=== PATIENT | female | born 1970 | race African-American/Black ===

== ENCOUNTER 2022-08-31 07:54 | Inpatient (IN) | payer OTHER, MEDICAID, SELFPAY ==
[2022-08-31] VITALS (8 sets, daily range): BP systolic 142–191; BP diastolic 74–93; PULSE 76–95; RESP 13–18; TEMP 36.3–37.2; O2SAT 94–100; BMI 22.8; BMI 22.4
--- NOTE | 2022-08-31 08:15 | ED.VIS.GI ---
HPI HPI - GI History of Present Illness Chief Complaint: Abd Pain Informant: patient Narrative Narrative: Patient states over the last 10-12 hours, she has had periumbilical abdominal discomfort and nausea/vomiting, mostly stomach contents and/or yellow gastric juice. No hematemesis or coffee-ground emesis. No fevers or chills. No diarrhea, her last bowel movement was normal without blood or melena. 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 Still feels nauseated. Bowel discomfort is not as bad. No history of any abdominal surgeries. When asked when her last meal was before the symptoms started, she states I am eating all the time. No known history of gallstones. She is a diabetic, she states her A1c was elevated recently and she had only been using herbal supplementations and now she is going to start taking prescriptions. She did not check her blood sugar prior to coming to the ER, but nursing checked it prior to my evaluation and it is 172. [facility] Medical History (Updated 08/31/22 @ 11:[address] Demetrius Walsh MD) Myocardial infarct Type 2 diabetes mellitus Home Medications Atorvastatin Calcium 10 mg PO DAILY 11/15/16 [History Last Taken Unknown] cyclobenzaprine 10 mg tablet 10 mg PO TID PRN Muscle Spasm ##20 11/15/16 [Rx Last Taken Unknown] glipizide 5 mg tablet 5 mg PO BIDAC 11/15/16 [History Last Taken Unknown] metformin 1,000 mg tablet 1,000 mg PO 4X/DAY 11/15/16 [History Last Taken Unknown] multivitamin (Daily Multiple tablet) 1 ea PO DAILY 11/15/16 [History Last Taken Unknown] naproxen 500 mg tablet 500 mg PO BID PRN #20 tabs 11/15/16 [Rx Last Taken Unknown] vitamin E 100 unit capsule 100 unit PO DAILY 11/15/16 [History Last Taken Unknown] Allergy/AdvReac Type Severity Reaction Status Date / Time latex Allergy Rash Verified 08/31/22 07:55 morphine AdvReac Nausea Verified 08/31/22 07:55 Surgical History (Updated 08/31/22 @ 09:29 by Alexandria Wigal) History of coronary artery stent placement Social History Smoking Status: Never smoker ROS ROS ED Constitutional Constitutional ED: Denies chills or fever(s) Eyes Eyes: Denies change in vision or diplopia ENT ENT ED: Denies rhinorrhea or sore throat Cardiovascular Cardiovascular: Denies chest pain or palpitations Respiratory/Chest Respiratory/Chest: Denies cough or dyspnea Gastrointestinal Gastrointestinal: Reports abdominal pain, nausea and vomiting; Denies diarrhea, hematemesis, hematochezia or melena Genitourinary Genitourinary ED: Denies dysuria or hematuria Musculoskeletal Musculoskeletal: Denies back pain or neck pain Integumentary Denies abscess or rash Neurologic Neurologic: Denies headache(s), paresthesias or weakness Psychiatric Psychiatric: Denies anxiety or suicidal thoughts EXAM Physical Exam Const Vital Signs: 08/31/22 07:55 08/31/22 09:25 08/31/22 09:54 Temperature 97.6 F L Temperature Source Temporal Pulse Rate 95 87 Respiratory Rate 18 14 Blood Pressure 153/92 H 191/92 H 150/93 H Blood Pressure Mean 112 125 112 Pulse Ox 98 97 Oxygen Delivery Method Room Air Room Air 08/31/22 11:00 Temperature Temperature Source Pulse Rate 83 Respiratory Rate 16 Blood Pressure Blood Pressure Mean Pulse Ox 98 Oxygen Delivery Method Room Air Positive well nourished and well developed General Appearance ED: well developed and NAD HEENT Reports moist mucous membranes normocephalic and atraumatic Eyes PERRL and EOMs intact bilaterally Neck full ROM, No no lymphadenopathy and supple Resp normal respiratory effort and clear to auscultation bilaterally Cardio regular rate, regular rhythm and no murmurs GI non-tender and non-distended Auscultation: normoactive bowel sounds Palpation: soft Back/Spine no CVA tenderness General Back: other FROM Extremity normal to inspection General Extremety ED: Negative for edema, pulses abnormal or tenderness General Extremity: Negative for edema or pulses abnormal Neuro oriented x3, CN's II-XII intact bilaterally and no sensory deficits noted Sensorium / Orientation: awake and alert Motor Exam: strength 5/5 throughout Skin no rashes or lesions noted and no wounds MDM MDM MDM Narrative Medical decision making narrative: I perform some screening labs given the broad upper GI differential including pancreatitis, biliary colic thought to be less likely here, and cardiac etiologies since her abdomen is very benign. Her troponin returned elevated, slightly. Upon discussing this with her, she additionally adds, which she did not discuss at all when discussing her past medical history, that she had a cardiac stent placed about 13 or 14 months ago, and additionally, she ran out of her medications which includes Brilinta about a month ago and has not been able to get her new prescription recently. She denies any chest pain. She states when she had her stent, she was experiencing dyspnea without chest discomfort, she has had none of that today. She is feeling a little better with the Zofran and IV fluids, I obtained an EKG which shows nonspecific ST-T wave abnormalities but no sign of an acute injury, so I observed her and gave her aspirin and obtained a 2-hour delta troponin. It went down to 85 from 103. I discussed all this with Dr. Harris, the patient is feeling much better and there is no prior EKG to compare it to, since she had prior cardiac work-up in [place]. He recommends admission to rule out acute coronary syndrome, Lovenox, cycling enzymes, echocardiogram, and consultation going from there. Lab Data Attestation: I reviewed the patient's lab results. Labs: Laboratory Results - last 24 hr 08/31/22 08/31/22 08/31/22 08:02 08:15 08:15 WBC 5.4 RBC 4.25 Hgb 12.3 Hct 37.9 MCV 89.2 MCH 28.9 MCHC 32.5 RDW Std Deviation 37.8 RDW Coeff of Rachael 11.7 Plt Count 385 MPV 10.4 Immature Gran % (Auto) 0.200 Neut % (Auto) 80.7 H Lymph % (Auto) 16.5 L [place] % (Auto) 2.4 Eos % (Auto) 0.0 Baso % (Auto) 0.2 Absolute Neuts (auto) 4.4 Absolute Lymphs (auto) 0.89 Nucleated RBC % 0 Sodium 133 L Potassium 4.3 Chloride 98 Carbon Dioxide 25.0 Anion Gap 10 BUN 18 Creatinine 1.00 Estim Creat Clear Calc 63.01 Est GFR (MDRD) Af Amer 75 Est GFR (MDRD) Non-Af 62 BUN/Creatinine Ratio 18.0 Glucose 168 H Calcium 9.9 Total Bilirubin 0.30 AST 48 H ALT 48 Alkaline Phosphatase 84 Troponin I High Sens 103 H Total Protein 8.7 H Albumin 3.7 Globulin 5.0 H Albumin/Globulin Ratio 0.7 L Lipase 194 H POC Glucose 179 H 08/31/22 10:20 WBC RBC Hgb Hct MCV MCH MCHC RDW Std Deviation RDW Coeff of Rachael Plt Count MPV Immature Gran % (Auto) Neut % (Auto) Lymph % (Auto) [place] % (Auto) Eos % (Auto) Baso % (Auto) Absolute Neuts (auto) Absolute Lymphs (auto) Nucleated RBC % Sodium Potassium Chloride Carbon Dioxide Anion Gap BUN Creatinine Estim Creat Clear Calc Est GFR (MDRD) Af Amer Est GFR (MDRD) Non-Af BUN/Creatinine Ratio Glucose Calcium Total Bilirubin AST ALT Alkaline Phosphatase Troponin I High Sens 85 H Total Protein Albumin Globulin Albumin/Globulin Ratio Lipase POC Glucose Rhythm Strip Rhythm Strip: Sinus Rhythm Rate: 80 Ectopy: None EKG Initial EKG: Attestation: I personally reviewed and interpreted this EKG as follows: Interpretation: Sinus Rhythm, No Acute Injury Pattern and Non-Specific ST Changes Prior EKG tracings: not available for review Prior: No Prior Management Discussion w/another healthcare provider: Hospitalist and Soft Sugar Supervisor (cardiology Dr. Harris) Discharge Plan Dx/Rx/DC Orders Clinical Impression: Elevated troponin, Diffuse abdominal pain, History of CAD (coronary artery disease) Disposition Disposition: Acute Care Hospital [facility]
[2022-08-31 08:21] LABS: Bedside Glucose 179 mg/dL (74-106)
[2022-08-31] MEDS: 0.9% Normal Saline 1,000 ML 1000 ML IV (08:22)
[2022-08-31] MEDS: Ondansetron 4 MG/2 ML Vial IV (08:22)
[2022-08-31 08:31] LABS: Absolute Lymphocyte Count 0.89 X10^3/uL (0.83-4.51); Absolute Neutrophil Count 4.4 X10^3/uL (2.0-7.7); Basophil# 0.01 X10^3/uL; Basophil% 0.2 % (0-1); Hematocrit 37.9 % (37-47); Hemoglobin 12.3 g/dL (12.0-15.0); Lymphocyte # 0.89 X10^3/ul (0.83-4.51); Lymphocyte % 16.5 % (19-41); Mean Corp Hgb Conc 32.5 g/dL (32-36); Mean Corpuscular Hgb 28.9 pg (27.0-32.0); Mean Corpuscular Volume 89.2 fL (81-99); Mean Platelet Vol. 10.4 fl (6.2-12.0); Monocyte# 0.13 X10^3/uL; Monocyte% 2.4 % (0-10); NRBC Flagged by Analyzer 0 % (0-5); Neutrophil # 4.36 X10^3/uL (2.7-7.7); Neutrophil % 80.7 % (47-70); Platelet Count 385 K/mm3 (150-450); RBC Distribution Width CV 11.7 % (11.6-14.6); RBC Distribution Width SD 37.8 fl (35.1-43.9); Red Blood Count 4.25 M/mm3 (4.2-5.4); White Blood Count 5.4 K/mm3 (4.4-11.0)
[2022-08-31 08:49] LABS: ALB/GLOB Ratio 0.7 RATIO (0.9-2.4); AST(SGOT) 48 U/L (15-37); Alanine Aminotransfer ALT/SGPT 48 U/L (13-56); Albumin, Serum 3.7 g/dL (3.2-5.0); Alkaline Phosphatase 84 U/L (45-117); Anion Gap 10 (5-15); BUN 18 mg/dL (7-18); Calcium,Total 9.9 mg/dL (8.5-10.1); Chloride 98 mmol/L (98-107); EST Glomerular Filtration Rate 62 mL/min (>60); Est Glom Filt Rate - Afr Amer 75 mL/min (>60); Estimated Creatinine Clearance 63.01 ml/min; Glucose 168 mg/dL (74-106); Lipase 194 U/L (13-75); Potassium 4.3 mmol/L (3.5-5.1); Protein, Total 8.7 g/dL (6.4-8.2); Sodium Level 133 mmol/L (136-145); Troponin-I HS 103 pg/mL (3.0-54.0)
--- NOTE | 2022-08-31 09:01 | EKG12_ITS ---
Test Reason : ELEVATED TROPONIN Blood Pressure : / mmHG Vent. Rate : 079 BPM Atrial Rate : 079 BPM P-R Int : 166 ms QRS Dur : 072 ms QT Int : 396 ms P-R-T Axes : 042 -05 019 degrees QTc Int : 454 ms Normal sinus rhythm Nonspecific T wave abnormality Abnormal ECG Confirmed by ELYSE YU, JOSE ([id number]), desk editor ABIOLA ANGLIN ([id number]) on 09/02/2022 9:33:22 AM Referred By: DARLENE Confirmed By:JOSE PAPPAS MD
[2022-08-31] MEDS: Aspirin 81 MG TAB.CHEW 324 MG PO (09:55)
[2022-08-31 10:48] LABS: Troponin-I HS 85 pg/mL (3.0-54.0)
[2022-08-31] MEDS: Enoxaparin 80 MG/0.8 ML Syringe 65 MG SC (11:38)
--- NOTE | 2022-08-31 12:32 | EKG12_ITS ---
Test Reason : Blood Pressure : / mmHG Vent. Rate : 093 BPM Atrial Rate : 093 BPM P-R Int : 156 ms QRS Dur : 072 ms QT Int : 356 ms P-R-T Axes : 045 -13 019 degrees QTc Int : 442 ms Normal sinus rhythm Minimal voltage criteria for LVH, may be normal variant ( R in aVL ) Borderline ECG No previous ECGs available Confirmed by ELYSE YU, JOSE ([id number]), development editor ABIOLA ANGLIN ([id number]) on 09/01/2022 1:57:56 PM Referred By: MICHELLE Confirmed By:JOSE PAPPAS MD
--- NOTE | 2022-08-31 13:45 | PCM.HP.STD ---
HPI - General General Date of Admission: 08/31/22 Date of Service: 08/31/22 Chief Complaint: nausea and vomiting. HPI Narrative JYOTI GUZMAN, is a 52 F who presents presents with nausea and vomiting. Symptoms began in the beginning of her work shift was at 2200 on the . Symptoms persisted and so she presented to the emergency room. In the emergency room, patient EKG was normal, but her troponins went from 10 3-85. Given the elevated troponins and patient does have a history of coronary artery disease with prior stent placed in June 2021, cardiology recommended admission, anticoagulation and echocardiogram. Patient stated that back in June 2021, patient was having shortness of breath and was found to have cardiac issue and required a stent at that time. Patient was released to go back to work back in September of last year and has been doing the same job since then. She did state that about 3 weeks ago, her prescription lapsed for her ticagrelor as well as metoprolol and she was unable to get it refilled despite reaching out to the provider. [facility] Medical History Myocardial infarct Type 2 diabetes mellitus Home Medications Atorvastatin Calcium 10 mg PO DAILY 11/15/16 [History Last Taken Unknown] cyclobenzaprine 10 mg tablet 10 mg PO TID PRN Muscle Spasm ##20 11/15/16 [Rx Last Taken Unknown] glipizide 5 mg tablet 5 mg PO BIDAC 11/15/16 [History Last Taken Unknown] metformin 1,000 mg tablet 1,000 mg PO 4X/DAY 11/15/16 [History Last Taken Unknown] multivitamin (Daily Multiple tablet) 1 ea PO DAILY 11/15/16 [History Last Taken Unknown] naproxen 500 mg tablet 500 mg PO BID PRN #20 tabs 11/15/16 [Rx Last Taken Unknown] vitamin E 100 unit capsule 100 unit PO DAILY 11/15/16 [History Last Taken Unknown] metoprolol succinate 50 mg tablet,extended release 24 hr 50 mg PO BID 08/31/22 [History Last Taken 08/30/22] ticagrelor 90 mg tablet (Brilinta) 90 mg PO BID 08/31/22 [History Last Taken Unknown] Allergy/AdvReac Type Severity Reaction Status Date / Time latex Allergy Rash Verified 08/31/22 07:55 morphine AdvReac Nausea Verified 08/31/22 07:55 Family History no significant family his Surgical History History of coronary artery stent placement Social History (Updated 08/31/22 @ 13:[address] Madan Jolley DO) Smoking Status: Never smoker alcohol intake: never substance use type: does not use ROS ROS Narrative No abdominal pain. No diaphoresis. No shortness of breath. All review of systems were negative except as mentioned above in the history of present illness and the other review of systems. Vital Signs Vital Signs Vital Signs: 08/31/22 07:55 08/31/22 09:25 08/31/22 09:54 Temperature 36.4 C L Temperature Source Temporal Pulse Rate 95 87 Respiratory Rate 18 14 Blood Pressure 153/92 H 191/92 H 150/93 H Blood Pressure Mean 112 125 112 Blood Pressure Source Blood Pressure Position Blood Pressure Location Pulse Ox 98 97 Oxygen Delivery Method Room Air Room Air 08/31/22 11:00 08/31/22 12:11 08/31/22 13:01 Temperature 37.1 C 36.9 C Temperature Source Temporal Oral Pulse Rate 83 80 93 Respiratory Rate 16 13 16 Blood Pressure 146/88 H 158/86 H Blood Pressure Mean 107 110 Blood Pressure Source Monitor Blood Pressure Position Semi-Fowlers Blood Pressure Location Right Arm Pulse Ox 98 100 94 Oxygen Delivery Method Room Air Room Air Room Air Weight Weight: 63 kg Body Mass Index (BMI) 22.4 Physical Exam Narrative - Physical Exam General: Alert, Oriented x3, Cooperative HEENT: Atraumatic, PERRLA, EOMI, Normocephalic Oral: Moist Mucosa, No Gingival or Mucosal Lesions/ Ulcerations Neck: Supple, No JVD, Negative Carotid Bruits Lungs: Clear to auscultation, Normal air movement Cardiovascular: Regular rate, Normal S1, Normal S2, No murmurs Abdomen: Bowel Sounds Present, Soft, Non Tender, Non-Distended, No Hepato-splenomegaly Extremities: No clubbing, No cyanosis, No edema, Capillary Refill Less than 3 Seconds Skin: No rashes, No breakdown Musculoskeletal: No Tenderness to Palpation of Joints or Extremities Neurological: Neuro grossly intact Psych/Mental Status: Normal Affect, Appropriate Results Lab / Micro Data Attestation: I reviewed the patient's lab results. Result Diagrams: 08/31/22 08:15 08/31/22 08:15 Labs: Laboratory Results - last 24 hr 08/31/22 08:02: POC Glucose 179 H 08/31/22 08:15: WBC 5.4, RBC 4.25, Hgb 12.3, Hct 37.9, MCV 89.2, MCH 28.9, MCHC 32.5, RDW Std Deviation 37.8, RDW Coeff of Rachael 11.7, Plt Count 385, MPV 10.4, Immature Gran % (Auto) 0.200, Neut % (Auto) 80.7 H, Lymph % (Auto) 16.5 L, [place] % (Auto) 2.4, Eos % (Auto) 0.0, Baso % (Auto) 0.2, Absolute Neuts (auto) 4.4, Absolute Lymphs (auto) 0.89, Nucleated RBC % 0 08/31/22 08:15: Sodium 133 L, Potassium 4.3, Chloride 98, Carbon Dioxide 25.0, Anion Gap 10, BUN 18, Creatinine 1.00, Estim Creat Clear Calc 63.01, Est GFR (MDRD) Af Amer 75, Est GFR (MDRD) Non-Af 62, BUN/Creatinine Ratio 18.0, Glucose 168 H, Calcium 9.9, Total Bilirubin 0.30, AST 48 H, ALT 48, Alkaline Phosphatase 84, Troponin I High Sens 103 H, Total Protein 8.7 H, Albumin 3.7, Globulin 5.0 H, Albumin/Globulin Ratio 0.7 L, Lipase 194 H 08/31/22 10:20: Troponin I High Sens 85 H Rhythm Strip Rhythm Strip: Sinus Rhythm Rate: 80 Ectopy: None EKG Initial EKG: Attestation: I personally reviewed and interpreted this EKG as follows: Prior EKG tracings: available for review EKG Rhythm Intrepretation: Sinus Rhythm Assessment & Plan Assessment/Plan (1) Non-STEMI (non-ST elevated myocardial infarction): PLAN: Unclear significance but troponins are trending downwards. Patient be anticoagulated with enoxaparin, check 2D echocardiogram and consult cardiology. Resume ticagrelor and metoprolol (2) Nausea and vomiting: PLAN: Unclear if this was cardiac in nature or related with a gastrointestinal issue. As needed antiemetics Check an abdominal x-ray PLAN: Plan Coronary artery disease: Continue with antiplatelet therapy, statin Diabetes mellitus type 2: Sliding scale insulin. Patient states that she has been taking an herbal supplement recently for diabetes. Check an A1c. VTE prophylaxis: Not indicated as patient will be anticoagulated and currently under observation status. Charges/Coding Visit Charges Inpatient E&M: 32965 Init Hosp L2
--- NOTE | 2022-08-31 14:48 | ECHOD_ITS ---
Reason For Study: CHEST PAIN Procedure This was a 2D Doppler, Color Flow transthoracic echocardiogram. Exam performed portable in patient room. Left Ventricle Normal left ventricle. The estimated ejection fraction is 55-60 %. Right Ventricle Normal right ventricle. Normal systolic function. Atria Normal left atrium. Normal right atrium. Mitral Valve The mitral valve is structurally normal. No prolapse or stenosis seen. Trivial mitral valve insufficiency. Tricuspid Valve Normal tricuspid valve. Aortic Valve Moderate focal aortic valve calcification. Trivial aortic valve insufficiency. Pulmonic Valve The pulmonic valve is not well visualized. Great Vessels Normal aortic root. Pericardium/Pleural No pericardial effusion. MMode/2D Measurements & Calculations LVIDd: 3.4 cm IVSd: 1.3 cm Ao root diam: 2.8 cm LVIDs: 2.2 cm LVPWd: 1.5 cm FS: 35.7 % LAV(MOD-bp): 32.0 ml LVAd ap4: 26.7 cm2 SV(MOD-sp4): 60.8 ml LAV(MOD-bp) Indexed: 18.7 ml/m2 LVLd ap4: 7.3 cm LAV(MOD-sp2): 29.1 ml EDV(MOD-sp4): 79.0 ml LAV(MOD-sp4): 35.1 ml EDV(sp4-el): 82.8 ml LVAs ap4: 10.5 cm2 LVLs ap4: 5.5 cm ESV(MOD-sp4): 18.2 ml ESV(sp4-el): 17.1 ml EF(MOD-sp4): 76.9 % EF(sp4-el): 79.4 % SV(sp4-el): 65.7 ml LA A4 area: 14.1 cm2 LA dimension(2D): 3.4 cm RA A4 area: 10.0 cm2 Time Measurements MV dec time: 0.15 sec Doppler Measurements & Calculations MV E max norm: 69.4 cm/sec Lat Peak E' Norm: 9.4 cm/sec Med Peak E' Norm: 7.6 cm/sec MV A max norm: 110.2 cm/sec E/E' lat: 7.4 E/E' med: 9.2 MV E/A: 0.63 MV V2 max: 134.1 cm/sec Ao V2 max: 175.7 cm/sec MV max P.2 mmHg MV dec slope: 478.3 cm/sec2 Ao max P.3 mmHg MV V2 mean: 103.8 cm/sec Ao V2 mean: 121.0 cm/sec MV mean P.6 mmHg Ao mean P.9 mmHg MV V2 VTI: 32.9 cm Ao V2 VTI: 31.8 cm AV (velocity ratio): 0.89 LV V1 max: 159.3 cm/sec PA V2 max: 145.6 cm/sec LV V1 max P.2 mmHg PA V2 mean: 101.8 cm/sec LV V1 mean P.8 mmHg LV V1 mean: 109.3 cm/sec LV V1 VTI: 28.3 cm ECHO/Echo Complete Interpretation Summary The estimated ejection fraction is 55-60 %. Overall normal LV systolic function Moderate size focal aortic valve calcification/echogenic Cannot rule out aortic valve vegetation Trivial aortic valve regurgitation To correlate with the clinical presentation And consider transesophageal echocardiogram if clinically warranted. No prior echocardiogram to compare Ordering Physician: Jack Harris Referring Physician: GOPI CRABTREE Performed By: Brandy Daniels RCS
[2022-08-31 15:54] LABS: Troponin-I HS 85 pg/mL (3.0-54.0)
--- NOTE | 2022-08-31 15:56 | CON.PCM.CA_ITS ---
Assessment & Plan Assessment/Plan (1) Elevated troponin: (2) Diffuse abdominal pain: (3) Non-STEMI (non-ST elevated myocardial infarction): (4) Nausea and vomiting: PLAN: Plan 52-year-old female Presented to the ER here at the [facility] Complaining of symptoms of nausea and vomiting Evidently the symptoms started while she was at work yesterday and persisted so she presented to ER Also patient has been off antiplatelet with Brilinta ticagrelor, for the last 3 weeks Patient had history of CAD with PCI and stent in June 2021 Also she had a history of diabetes mellitus, hyperlipidemia Her current medication include atorvastatin, glipizide, metformin, naproxen, metoprolol and she been off ticagrelor Card examination essentially normal Cardiac care plan recommendations; On review of the record patient has elevated cardiac biomarker with high sensitive troponins which was 103 trending to 85 And the EKG showed normal sinus rhythm Review of the echocardiogram part of the systolic function is preserved We will continue medical treatment for CAD/non-STEMI Patient scheduled for cardiac catheterization tomorrow by Dr. Thornton.. HPI Consult Data Date of Consult: 08/31/22 HPI Narrative Reason for Consultation: CAD/non-STEMI/prior PCI stent HPI Narrative: JYOTI GUZMAN, is a 52 F who presents [facility] Medical History Myocardial infarct Type 2 diabetes mellitus Home Medications Atorvastatin Calcium 10 mg PO DAILY 11/15/16 [History Last Taken Unknown] cyclobenzaprine 10 mg tablet 10 mg PO TID PRN Muscle Spasm ##20 11/15/16 [Rx Last Taken Unknown] glipizide 5 mg tablet 5 mg PO BIDAC 11/15/16 [History Last Taken Unknown] metformin 1,000 mg tablet 1,000 mg PO 4X/DAY 11/15/16 [History Last Taken Unknown] multivitamin (Daily Multiple tablet) 1 ea PO DAILY 11/15/16 [History Last Taken Unknown] naproxen 500 mg tablet 500 mg PO BID PRN #20 tabs 11/15/16 [Rx Last Taken Unknown] vitamin E 100 unit capsule 100 unit PO DAILY 11/15/16 [History Last Taken Unknown] metoprolol succinate 50 mg tablet,extended release 24 hr 50 mg PO BID 08/31/22 [History Last Taken 08/30/22] ticagrelor 90 mg tablet (Brilinta) 90 mg PO BID 08/31/22 [History Last Taken Unknown] Allergy/AdvReac Type Severity Reaction Status Date / Time latex Allergy Rash Verified 08/31/22 07:55 morphine AdvReac Nausea Verified 08/31/22 07:55 Family History no significant family his Surgical History History of coronary artery stent placement Social History (Updated 08/31/22 @ 13:[address] Madan Jolley DO) Smoking Status: Never smoker alcohol intake: never substance use type: does not use ROS ROS Narrative 14 point review of system is unremarkable apart from current presentation. Patient presented with symptoms of nausea vomiting Patient was off the antiplatelet with Brilinta for 3 weeks Physical Exam Narrative Orientated Not in acute distress Cardiovascular exam S1-S2 regular Chest exam clear to auscultation bilateral Examination lower extremity no lower extremity edema. Pedal pulses palpable Risk Stratification Risk Stratification Applicable: Yes Age >/= 65: No >/= 3 CAD Risk Factors (HTN, HLD, DM, family hx of CAD, or current smoker): Yes Aspirin Use in the Past 7 Days: Yes Severe Angina (>/= episodes in 24 hours): No EKG ST Changes >/= 0.5mm: No Positive Cardiac Marker: Yes JOCELYN Risk Stratification Score: 3 JOCELYN % Risk: 13% Risk Objective Data Vital Signs: Vital Signs Temp Pulse Resp BP Pulse Ox O2 Del Method 98.4 F 93 16 158/86 H 94 Room Air 08/31/22 13:01 08/31/22 13:01 08/31/22 13:01 08/31/22 13:01 08/31/22 13:01 08/31/22 15:36 Oxygen Delivery Method Room Air Weight: 138 lb 14.259 oz Body Mass Index (BMI) 22.4 Intake & Output: Intake and Output for Last 24 Hours 08/29/22 08/30/22 08/31/22 23:59 23:59 23:59 Intake Total 1000 / 1000 Balance 1000 / 1000 Lab / Micro Data Result Diagrams: 08/31/22 08:15 08/31/22 08:15 Labs: Laboratory Results - last 24 hr 08/31/22 08:02: POC Glucose 179 H 08/31/22 08:15: WBC 5.4, RBC 4.25, Hgb 12.3, Hct 37.9, MCV 89.2, MCH 28.9, MCHC 32.5, RDW Std Deviation 37.8, RDW Coeff of Rachael 11.7, Plt Count 385, MPV 10.4, Immature Gran % (Auto) 0.200, Neut % (Auto) 80.7 H, Lymph % (Auto) 16.5 L, [place] % (Auto) 2.4, Eos % (Auto) 0.0, Baso % (Auto) 0.2, Absolute Neuts (auto) 4.4, Absolute Lymphs (auto) 0.89, Nucleated RBC % 0 08/31/22 08:15: Sodium 133 L, Potassium 4.3, Chloride 98, Carbon Dioxide 25.0, Anion Gap 10, BUN 18, Creatinine 1.00, Estim Creat Clear Calc 63.01, Est GFR (MDRD) Af Amer 75, Est GFR (MDRD) Non-Af 62, BUN/Creatinine Ratio 18.0, Glucose 168 H, Calcium 9.9, Total Bilirubin 0.30, AST 48 H, ALT 48, Alkaline Phosphatase 84, Troponin I High Sens 103 H, Total Protein 8.7 H, Albumin 3.7, Globulin 5.0 H , Albumin/Globulin Ratio 0.7 L, Lipase 194 H 08/31/22 10:20: Troponin I High Sens 85 H 08/31/22 14:20: Troponin I High Sens 85 H Rhythm Strip Rhythm Strip: Sinus Rhythm Rate: 80 Ectopy: None Cardiology Labs/Tests 08/31/22 08:15: WBC 5.4, RBC 4.25, Hgb 12.3, Hct 37.9, MCV 89.2, MCH 28.9, MCHC 32.5, Plt Count 385, MPV 10.4, Immature Gran % (Auto) 0.200, Neut % (Auto) 80.7 H, Lymph % (Auto) 16.5 L, [place] % (Auto) 2.4, Eos % (Auto) 0.0, Baso % (Auto) 0.2, Absolute Neuts (auto) 4.4, Nucleated RBC % 0 08/31/22 08:15: Sodium 133 L, Potassium 4.3, Chloride 98, Carbon Dioxide 25.0, Anion Gap 10, BUN 18, Creatinine 1.00, Est GFR (MDRD) Af Amer 75, Est GFR (MDRD) Non-Af 62, BUN/Creatinine Ratio 18.0, Glucose 168 H, Calcium 9.9, Total Bilirubin 0.30 Rhythm: EKG: ECHO: Stress Test: Cardiac Cath: PCI: CT Surgery: Holter monitor: EPS: PPM: CXR: Chest CT Scan:
[2022-08-31] MEDS: Insulin Lispro 100 UNIT/ML INSULN.PEN SC (16:50)
[2022-08-31 17:05] LABS: Bedside Glucose 388 mg/dL (74-106)
[2022-08-31] MEDS: TICAGRELOR 90 MG TABLET PO (22:46)
[2022-08-31] MEDS: Enoxaparin 80 MG/0.8 ML Syringe 70 MG SC (22:46)
[2022-08-31] MEDS: Atorvastatin Calcium 10 MG Tablet PO (22:46)
[2022-09-01] VITALS (14 sets, daily range): BP systolic 133–155; BP diastolic 70–101; PULSE 77–110; RESP 16–18; TEMP 36.6–36.9; O2SAT 93–100
--- NOTE | 2022-09-01 04:10 | EKG12_ITS ---
Test Reason : AM EKG Blood Pressure : / mmHG Vent. Rate : 083 BPM Atrial Rate : 083 BPM P-R Int : 158 ms QRS Dur : 074 ms QT Int : 366 ms P-R-T Axes : 049 -02 046 degrees QTc Int : 430 ms Normal sinus rhythm Normal ECG When compared with ECG of 31-AUG-2022 13:25, MANUAL COMPARISON REQUIRED, DATA IS UNCONFIRMED Confirmed by ELYSE YU, JOSE ([id number]), newspaper editor ABIOLA ANGLIN ([id number]) on 09/01/2022 1:57:24 PM Referred By: Confirmed By:JOSE PAPPAS MD
[2022-09-01] MEDS: Aspirin E.C. 81 MG Tablet PO (06:02)
[2022-09-01] MEDS: TICAGRELOR 90 MG TABLET PO ×2 (06:02→22:36)
[2022-09-01 06:13] LABS: Absolute Neutrophil Count 1.6 X10^3/uL (2.0-7.7); Basophil# 0.01 X10^3/uL; Basophil% 0.3 % (0-1); Eosinophil# 0.04 X10^3/uL; Eosinophils% 1.3 % (0-5); Hematocrit 34.6 % (37-47); Hemoglobin 11.3 g/dL (12.0-15.0); Lymphocyte % 36.2 % (19-41); Mean Corp Hgb Conc 32.7 g/dL (32-36); Mean Corpuscular Hgb 28.7 pg (27.0-32.0); Mean Corpuscular Volume 87.8 fL (81-99); Mean Platelet Vol. 10.5 fl (6.2-12.0); Monocyte# 0.32 X10^3/uL; Monocyte% 10.5 % (0-10); NRBC Flagged by Analyzer 0 % (0-5); Neutrophil # 1.56 X10^3/uL (2.7-7.7); Neutrophil % 51.4 % (47-70); Platelet Count 348 K/mm3 (150-450); RBC Distribution Width CV 11.3 % (11.6-14.6); RBC Distribution Width SD 36.6 fl (35.1-43.9); Red Blood Count 3.94 M/mm3 (4.2-5.4)
[2022-09-01 06:44] LABS: Anion Gap 7 (5-15); BUN 28 mg/dL (7-18); BUN/Creat Ratio 24.1 RATIO (10-20); Calcium,Total 9.1 mg/dL (8.5-10.1); Chloride 98 mmol/L (98-107); Creatinine, Serum 1.16 mg/dL (0.55-1.02); EST Glomerular Filtration Rate 53 mL/min (>60); Est Glom Filt Rate - Afr Amer 64 mL/min (>60); Estimated Creatinine Clearance 54.32 ml/min; Glucose 388 mg/dL (74-106); Potassium 4.1 mmol/L (3.5-5.1); Sodium Level 132 mmol/L (136-145)
--- NOTE | 2022-09-01 08:38 | PCM.PN.HOSP ---
Reason for Visit Reason for Visit: Diagnoses Non-ST elevation (NSTEMI) myocardial infarction (08/31/22) Generalized abdominal pain (08/31/22) Nausea with vomiting, unspecified (08/31/22) Other specified abnormalities of plasma proteins (08/31/22) Subjective Subjective No chest pain. Patient feeling numbness in her hands which she gets when her blood sugar gets high. States that she is not taking her previous oral medications for diabetes she was taking some herbal medication because it made her feel better. Objective Data Objective Data Vital Signs: Vital Signs Temp Pulse Resp BP Pulse Ox O2 Del Method 36.6 C 88 18 133/87 H 93 Room Air 09/01/22 03:47 09/01/22 03:47 09/01/22 03:47 09/01/22 03:47 09/01/22 07:08 09/01/22 07:08 Oxygen Delivery Method Room Air Weight: 63 kg Body Mass Index (BMI) 22.4 Intake & Output: Intake and Output for Last 24 Hours 08/30/22 08/31/22 09/01/22 23:59 23:59 23:59 Intake Total 1500 / 1500 Balance 1500 / 1500 Lab / Micro Data Result Diagrams: 09/01/22 05:20 09/01/22 05:20 Labs: Laboratory Results - last 24 hr 08/31/22 08:15: Sodium 133 L, Potassium 4.3, Chloride 98, Carbon Dioxide 25.0, Anion Gap 10, BUN 18, Creatinine 1.00, Estim Creat Clear Calc 63.01, Est GFR (MDRD) Af Amer 75, Est GFR (MDRD) Non-Af 62, BUN/Creatinine Ratio 18.0, Glucose 168 H, Calcium 9.9, Total Bilirubin 0.30, AST 48 H, ALT 48, Alkaline Phosphatase 84, Troponin I High Sens 103 H, Total Protein 8.7 H, Albumin 3.7, Globulin 5.0 H, Albumin/Globulin Ratio 0.7 L, Lipase 194 H 08/31/22 10:20: Troponin I High Sens 85 H 08/31/22 14:20: Troponin I High Sens 85 H 08/31/22 16:45: POC Glucose 388 H 09/01/22 05:20: WBC 3.0 L, RBC 3.94 L, Hgb 11.3 L, Hct 34.6 L, MCV 87.8, MCH 28.7, MCHC 32.7, RDW Std Deviation 36.6, RDW Coeff of Rachael 11.3 L, Plt Count 348, MPV 10.5, Immature Gran % (Auto) 0.300, Neut % (Auto) 51.4, Lymph % (Auto) 36.2, [place] % (Auto) 10.5 H, Eos % (Auto) 1.3, Baso % (Auto) 0.3, Absolute Neuts (auto) 1.6 L, Absolute Lymphs (auto) 1.10, Nucleated RBC % 0 09/01/22 05:20: Sodium 132 L, Potassium 4.1, Chloride 98, Carbon Dioxide 27.0, Anion Gap 7, BUN 28 H, Creatinine 1.16 H, Estim Creat Clear Calc 54.32, Est GFR (MDRD) Af Amer 64, Est GFR (MDRD) Non-Af 53 L, BUN/Creatinine Ratio 24.1 H, Glucose 388 H, Calcium 9.1 Radiography Diagnostic Testing: Radiology Impression Echocardiogram 08/31/22 14:48 Interpretation Summary The estimated ejection fraction is 55-60 %. Overall normal LV systolic function Moderate size focal aortic valve calcification/echogenic Cannot rule out aortic valve vegetation Trivial aortic valve regurgitation To correlate with the clinical presentation And consider transesophageal echocardiogram if clinically warranted. No prior echocardiogram to compare Ordering Physician: Jack Harris Referring Physician: GOPI CRABTREE Performed By: Brandy Daniels RCS Rhythm Strip Rhythm Strip: Sinus Rhythm Rate: 80 Ectopy: None Physical Exam Const alert and no apparent distress Resp normal respiratory effort, no retractions, no use of accessory muscles and clear to auscultation bilaterally Cardio regular rate, regular rhythm, S1 normal heart sound and S2 normal heart sound GI normal to inspection, nondistended, normoactive bowel sounds, soft to palpation, non-tender and non-distended Extremity normal to inspection Psych affect normal Assessment & Plan Assessment/Plan (1) Non-STEMI (non-ST elevated myocardial infarction): PLAN: Unclear significance but troponins are trending downwards. Patient be anticoagulated with enoxaparin, check 2D echocardiogram and consult cardiology. Continue aspirin, ticagrelor, atorvastatin and metoprolol [facility] 09/01 patient had a drug-eluting stent placed to the LAD. (2) Nausea and vomiting: PLAN: Unclear if this was cardiac in nature or related with a gastrointestinal issue. As needed antiemetics Add pantoprazole (3) Type 2 diabetes mellitus: PLAN: Patient not been on medications for some time prior to presentation. Stated that she stopped taking her metformin as well as glipizide because it did not make her feel well. She was taking an herbal supplement because that actually did make her feel well. She does not know what that herbal supplement was. Explained to her that I would suspect that the herbal supplement is likely benign but very likely not to be helpful in regards to her diabetes. Explained to her that it is best that she be put on medications to get her blood sugar under better control because of the long-term complications with diabetes. I also mention with her abdominal issues that is unclear if she has anything like diabetic gastroparesis. Check hemoglobin A1c At home she is taking metformin 1000 mg 4 times a day but had been sometime prior to this admission when she was taking. Patient may need more basal insulin rather than oral agents. We will hold off on additional oral agents at this time till we get her A1c. PLAN: Plan Coronary artery disease: Continue with antiplatelet therapy, statin VTE prophylaxis: Not indicated as patient will be anticoagulated and currently under observation status. Greater than 50 minutes of which greater than 50 percent of time was counseling patient bedside about diabetes, medications for diabetes, the need to get better control of the diabetes but also acknowledging her concerns because of the issues that she was having regards to some potential side effects with the metformin and glipizide. Charges/Coding Visit Charges Inpatient E&M: 36167 [facility] L3
[2022-09-01 08:55] LABS: Bedside Glucose 359 mg/dL (74-106)
[2022-09-01] MEDS: Insulin Lispro 100 UNIT/ML INSULN.PEN SC ×2 (09:59→16:47)
[2022-09-01] MEDS: Vitamin E 400 UNITS Capsule PO (10:06)
[2022-09-01] MEDS: Multivitamins,Therapeutic Tablet 1 TABLET PO (10:06)
[2022-09-01] MEDS: Pantoprazole Sodium 40 MG Tablet PO (10:06)
[2022-09-01 10:11] LABS: Bedside Glucose 241 mg/dL (74-106)
[2022-09-01 11:54] LABS: Internal QC Validated? YES +Cl - CLEAR BKGD; Pregnancy, Urine Negative Negative
--- NOTE | 2022-09-01 12:25 | CL.D_ITS ---
Patient Name: JYOTI GUZMAN Study Date: 09/01/2022 Performing: Jairo Thornton MD Ht: 66 inches 167.64 cm : 1970 Wt: 138.89 lbs 63 kg Age: 52 Gender: female BSA: 1.71 PROCEDURE(S) PERFORMED [id number])[facility] CLINICAL PROFILE AND INDICATIONS Indications: Worsening Angina Heart Failure: None Stress/Imaging Stress/Image Study Performed: No CAD Presentations: Unstable angina. CONCLUSIONS Single-vessel CAD with high-grade stenosis prior to the LAD stent. RECOMMENDATIONS Referred for immediate PCI DESCRIPTION OF PROCEDURE The patient arrived to the procedure lab. The risks and benefits of the procedure as well as a full description of our services here and current unavailability of surgical backup were fully explained to the patient and/or their significant other prior to the catheterization. The Timeout was completed, verifying the correct patient and procedure. The patient's procedural site was prepped and draped in the usual fashion. Local anesthetic was given subcutaneously to right radial region with Lidocaine 2%. Using a modified Seldinger technique, arterial access was obtained via the right radial artery, a 6Fr sheath was inserted. Left Coronary Artery selective angiography was performed in multiple views using a 5 Fr. 4.0 Leicester catheter. Right Coronary Artery selective angiography was then performed in multiple views using a 5 Fr. 4.0 Leicester catheter. CORONARY ANGIOGRAPHY DOMINANCE: Right Dominant LEFT HEART ASSESSMENT Left Ventricular Ejection Fraction: by Echo 65 % Normal LV wall motion Normal Left Ventricular systolic function LEFT MAIN: Angiographically normal LEFT ANTERIOR DESCENDING ARTERY: Patient previously underwent PCI of the mid LAD with a 90% stenosis prior to the stents. CIRCUMFLEX ARTERY: Angiographically normal RIGHT CORONARY ARTERY: Dominant vessel with no significant disease except for the inferior branch of the posterolateral vessel which is small with a 70% stenosis. COMPLICATIONS PROCEDURE MEDICATIONS Versed 1 mg IV Fentanyl 50 mcg IV Oxygen: 2 L/min via nasal cannula Brilinta 90 mg PO @ 09/01/2022 12:21:34 Heparin given IA 09/01/2022 12:00:29 Heparin 6000 unit(s) IV 09/01/2022 12:22:46 Verapamil 2.5mg, Ntg 100mcgs, 3000 units of Heparin given IA 09/01/2022 12:00:29 SUMMARY OF HEMODYNAMIC DATA Time AIR REST ECG 11:40:02 Art 216/91 (131) 11:56:31 Art 164/84 (103) 12:02:20 AO 162/42 (36) SA 12:13:47 AO 128/84 (105) 12:13:56 Signed By Jairo Thornton MD On 09/01/2022 12:24:26 Jairo Thornton MD
--- NOTE | 2022-09-01 13:04 | PCIREPORT_ITS ---
PCI Cardiac Cath Report PCI Report: 1 successful PCI of LAD/90% stenosis proximal to mid LAD stent. With predilatation using 2.5 x 15 mm balloon, followed by placement of drug- eluting stent 2.75 x 18 mm resolute Allyn, postdilated with 3 x 15 mm NC balloon And achieved a 0% postprocedure. Maintenance of JOCELYN-3 flow pre and postprocedure. #2 placement of TR band to close the right radial artery arteriotomy site. Consent; Risk and benefits of procedure explained detail to the patient she elected to proceed informed consent obtained Angiographic findings showed to the patient in the Domestic [facility] and the lesion proximal LAD was identified by angiography and discussed with the patient. Also I reinforced the importance of taking Brilinta and aspirin due to the risk of acute in-stent thrombosis. Preprocedure diagnosis; This patient with a history of CAD She had a PCI and stent done at the [facility] in July 06 She was off Brilinta for nearly 3 weeks. And also she was not on aspirin she presented with nausea vomiting to the ER here at the [facility]. The troponin level initially is 103 and subsequently the trended down to 85 She was started on medical therapy with dual antiplatelet Brilinta aspirin in addition to the rest of her medication. When she was brought into the [facility] where she underwent cardiac catheterization today by Dr. Thornton. The finding of cardiac catheterization revealed patency of the mid LAD stented with the proximal stenosis from 90% RCA large dominant normal angiographically Left main is normal And circumflex artery angiographically normal. LV systolic function is preserved ejection fraction of 65%. Interventional equipment used 1. 6 Belgian EBU guide catheter 0.014 180 cm run-through extra floppy straight guidewire 2.5 x 15 mm emerge MR balloon 2.75 x 18 mm resolute Geovanny Rx drug-eluting stent 3.0 x 15 mm NC emerge MR balloon Medication used in the Domestic House[facility]; Patient was given heparin through the sheath as well as a 6000 units of heparin ACT level acceptable to 99 In addition to that the patient was given 1 dose of Brilinta as she was given only a single dose in the floor. In addition to aspirin Procedure in detail; Under fluoroscopic guidance through the right radial artery approach we will proceed with a 6 Belgian EBU guide catheter cannulated the left main without difficulty Following this we will proceed with a guide wire across the lesion at the LAD through the stent And then predilated proximal to the stent followed by placement of drug-eluting stent and postdilatation With reduction of stenosis and maintenance of JOCELYN-3 flow Following this all angiographic view reviewed All catheter removed And hemostasis maintained with manual pressure with no complication in the Domestic [facility] Conclusion recommendation 1. Patient will be scheduled for phase 1 cardiac rehab at the [facility] 2. Patient to follow-up with Dr. Thornton for continuation of cardiac care and clinical follow-up 3. I reinforced to the patient the importance of taking the Brilinta and a low-dose aspirin for 1 year We will continue the rest of the cardiac medication. No complication in the Domestic [facility] Jack Harris MD,FACC,[facility]
[2022-09-01] MEDS: Acetaminophen 325 MG Tablet 650 MG PO (14:31)
[2022-09-01 14:58] LABS: ACT Activated Clotting Time 299 sec (74-137)
[2022-09-01 17:25] LABS: Bedside Glucose 215 mg/dL (74-106)
[2022-09-01 19:13] LABS: Hemoglobin A1c > 14.0 % (3.8-5.6)
--- NOTE | 2022-09-01 20:37 | NURSING ---
1951 This nurse took over patient care
[2022-09-01] MEDS: Atorvastatin Calcium 10 MG Tablet PO (22:36)
--- NOTE | 2022-09-01 23:01 | PCM.HOSP.N ---
Hospitalist Note Blood sugars notably elevated, hemoglobin A1c obtained today and noted to be greater than 14%, will add glargine 25 unit twice daily with dose now and increase insulin sliding scale.
[2022-09-01 23:05] LABS: Bedside Glucose > 500 mg/dL (74-106)
[2022-09-01] MEDS: Insulin Lispro 100 UNIT/ML INSULN.PEN 20 UNIT SC (23:42)
[2022-09-01 23:59] LABS: Glucose 625 mg/dL (74-106)
[2022-09-02] MEDS: Insulin Glargine-YFGN 100 UNIT/ML Pen 25 UNIT SC ×2 (00:09→11:27)
[2022-09-02 02:01] LABS: Bedside Glucose 410 mg/dL (74-106)
[2022-09-02] MEDS: Insulin Lispro 100 UNIT/ML INSULN.PEN SC ×2 (02:16→11:27)
[2022-09-02 03:45] VITALS: BP 110/73; PULSE 106; RESP 16; TEMP 36.6; O2SAT 96
--- NOTE | 2022-09-02 04:28 | CT_ITS ---
EXAM: CT HEAD WITHOUT INTRAVENOUS CONTRAST CLINICAL INDICATION: Fall Fall TECHNIQUE: Multiple axial images were obtained of the head without intravenous contrast. This CT exam was performed using one or more of the following dose reduction techniques: automated exposure control, adjustment of the mA and/or kV according to patient size, and/or use of iterative reconstruction technique. RADIATION DOSE: CTDIvol = 44.99 mGy, DLP = 796.11 mGy-cm COMPARISON: No relevant prior studies available. FINDINGS: BRAIN AND EXTRA-AXIAL SPACES: Unremarkable. No intra- or extra-axial hemorrhage. No evidence of acute infarct. No intracranial mass or mass effect. There is preservation of the bojorquez/white matter interface. Posterior fossa structures are unremarkable. Ventricles are appropriate for age. No hydrocephalus. Basal cisterns are patent. BONES/JOINTS: Unremarkable. No discrete lytic or blastic abnormalities. SOFT TISSUES: There is a right periorbital skin wound, with associated soft tissue air. VASCULATURE: There is atherosclerotic calcification of the cavernous carotid arteries. SINUSES: Unremarkable as visualized. Clear. MASTOID AIR CELLS: Unremarkable. Clear. ORBITS: Visualized globes, extraocular muscles, optic nerves and retrobulbar fat appear unremarkable. CT/Brain/Head without Contrast IMPRESSION: No demonstrated acute intracranial process. Electronically Signed: Vel García MD at 5:48 EDT Reading Location ID and State: [facility] / [place] , Service support ,
--- NOTE | 2022-09-02 04:28 | PCM.HOSP.N ---
Hospitalist Note Patient with mechanical fall unfortunately hitting her head with resulting laceration above her R eye. Will obtain CT head to be cautious.
--- NOTE | 2022-09-02 04:32 | NURSING ---
Staff alarm pulled at 4:15 am BUTTER WRAPPER assisted patient to bedside commode next to the bed and patient insisted on staff given privacy to use the bedside commode. Around two minutes later the staff heard a smack to the ground looked around the curtain and saw patient laying on her right side. Staff pulled staff alarm at this time. We assess the patient she was alert didn't lose conscious while talking with staff. She stated, i don't remember falling an the fall woke me up. Patient only had one Patient has a laceration on the right eye patient had glasses on during this time they are broken. Bp 119/65, HR-95, Spo2 95% RA, Temp- 98.0, BS 157, PERRLA.Notified Dr. Nassar ordered a CT.
[2022-09-02 04:41] LABS: Bedside Glucose 157 mg/dL (74-106)
[2022-09-02] MEDS: Acetaminophen 325 MG Tablet 650 MG PO (05:36)
--- NOTE | 2022-09-02 05:56 | NURSING ---
Pt had requested privacy to have a bowel movement when placed on BSC by the aide and this RN, call light was within reach. This RN and aide were standing by curtain to provide privacy and reminded pt to call out when finished. This RN heard the BSC moving as if the patient was attempting to get up on own and there was a thud. Pt was found lying on ground lying on rt side and head had struck the ground and BSC was pushed away from pt. Pt does not recall any events prior to the fall. Vitals, blood sugar and neurological status were stable. Pt put back in bed and was sent to CT.
[2022-09-02 06:55] LABS: Bedside Glucose 85 mg/dL (74-106)
--- NOTE | 2022-09-02 07:59 | PCM.PN.HOSP ---
Reason for Visit Reason for Visit: Diagnoses Type 2 diabetes mellitus without complications (09/01/22) Non-ST elevation (NSTEMI) myocardial infarction (09/01/22) Generalized abdominal pain (09/01/22) Nausea with vomiting, unspecified (09/01/22) Other specified abnormalities of plasma proteins (09/01/22) Subjective Subjective Patient had a syncopal episode while she was on the commode and hit her head. Patient sustained a superficial laceration above her right eyelid. Objective Data Objective Data Vital Signs: Vital Signs Temp Pulse Resp BP Pulse Ox O2 Del Method 36.6 C 106 H 16 110/73 96 Room Air 09/02/22 03:45 09/02/22 03:45 09/02/22 03:45 09/02/22 03:45 09/02/22 03:45 09/02/22 04:40 Oxygen Delivery Method Room Air Weight: 63 kg Body Mass Index (BMI) 22.4 Intake & Output: Intake and Output for Last 24 Hours 08/31/22 09/01/22 09/02/22 23:59 23:59 23:59 Intake Total 1500 / 1500 530 / 530 Output Total 350 / 350 600 / 600 Balance 1500 / 1500 180 / 180 -600 / -600 Lab / Micro Data Result Diagrams: 09/01/22 05:20 09/01/22 23:15 Labs: Laboratory Results - last 24 hr 09/01/22 05:20: Hemoglobin A1c > 14.0 H 09/01/22 06:06: POC Glucose 359 H 09/01/22 09:49: POC Glucose 241 H 09/01/22 10:58: Urine Test Negative 09/01/22 11:40: Urine Test Cancelled 09/01/22 12:50: Activated Clotting Time 299 H 09/01/22 16:45: POC Glucose 215 H 09/01/22 22:41: POC Glucose > 500 H* 09/01/22 23:15: Glucose 625 H* 09/02/22 01:41: POC Glucose 410 H 09/02/22 04:21: POC Glucose 157 H 09/02/22 05:58: POC Glucose 85 Radiography Diagnostic Testing: Radiology Impression Brain CT 09/02/22 04:28 IMPRESSION: No demonstrated acute intracranial process. Electronically Signed: Vel García MD at 5:48 EDT Reading Location ID and State: [facility] / [place] , Service support , Rhythm Strip Rhythm Strip: Sinus Rhythm Rate: 80 Ectopy: None Physical Exam Const alert and no apparent distress HEENT HEENT Narrative: Superficial laceration of the upper lateral right eyelid. External ocular muscles are intact. Neuro Sensorium / Orientation: awake and alert Psych affect normal Assessment & Plan Assessment/Plan (1) Non-STEMI (non-ST elevated myocardial infarction): PLAN: Unclear significance but troponins are trending downwards. Patient be anticoagulated with enoxaparin, check 2D echocardiogram and consult cardiology. Continue aspirin, ticagrelor, atorvastatin and metoprolol [facility] 09/01 patient had a drug-eluting stent placed to the LAD. (2) Nausea and vomiting: PLAN: Unclear if this was cardiac in nature or related with a gastrointestinal issue. As needed antiemetics Add pantoprazole (3) Type 2 diabetes mellitus: PLAN: Patient not been on medications for some time prior to presentation. Stated that she stopped taking her metformin as well as glipizide because it did not make her feel well. She was taking an herbal supplement because that actually did make her feel well. She does not know what that herbal supplement was. Explained to her that I would suspect that the herbal supplement is likely benign but very likely not to be helpful in regards to her diabetes. Explained to her that it is best that she be put on medications to get her blood sugar under better control because of the long-term complications with diabetes. I also mention with her abdominal issues that is unclear if she has anything like diabetic gastroparesis. Check hemoglobin A1c At home she is taking metformin 1000 mg 4 times a day but had been sometime prior to this admission when she was taking. Patient may need more basal insulin rather than oral agents. a1C came back at greater than 14. Started on glargine 25 units BID , Will discharge patient with insulin glargine. Patient blood sugar dropped down to 85 this morning so we will do 30 units daily plus prandial insulin. Patient states that she has done this regimen previously. PLAN: Plan Coronary artery disease: Continue with antiplatelet therapy, statin VTE prophylaxis: Not indicated as patient will be anticoagulated and currently under observation status.
[2022-09-02 08:21] VITALS: O2SAT 96
[2022-09-02] MEDS: TICAGRELOR 90 MG TABLET PO (08:55)
[2022-09-02] MEDS: Aspirin E.C. 81 MG Tablet PO (08:55)
[2022-09-02] MEDS: Pantoprazole Sodium 40 MG Tablet PO (08:55)
[2022-09-02] MEDS: Vitamin E 400 UNITS Capsule PO (08:55)
[2022-09-02] MEDS: Multivitamins,Therapeutic Tablet 1 TABLET PO (08:55)
[2022-09-02] MEDS: 0.9% Saline Lock 10 ML Syringe IV (08:56)
[2022-09-02 10:20] VITALS: BP 133/79; PULSE 104; RESP 16; TEMP 37.1; O2SAT 98
--- NOTE | 2022-09-02 10:30 | CASEMGMT ---
RN CM Face to Face with patient for initial transition planning/care coordination assessment. RN CM introduced self and role at [facility]. Patient lying in bed, alert and oriented. Patient willing to participate in assessment and is able to answer all questions appropriately. Care providers, pharmacy, and demographics verified. Patient wishes to discharge home, denies need for home health at this time. Patient states she has no further needs or concerns at this time. CM to follow for discharge planning needs that may arise. PCP: Yovani Specialists: none, information card provided for Dr Sanchez, director perioperative [facility]erred Pharmacy: [facility] Insurance: [employer] Prescription Benefit: yes, will monitor for anticoag savings card Living Will/HPOA: yes, daughter Rubina Chowdary LNOK: daughter, mother Living Arrangements: Patient lives with daughter in a 2 story home with first floor setup if needed. Patient states she is independent and able to ambulate stairs. Transportation: self, daughters DME/HHC: patient states she has BSC, insulin with supplies. Patient states she needs new glucometer, will assist with obtaining script. No previous HHC or SNF Disposition Plan: Patient to discharge home with family support and follow-up plans in place. Michelle MA, RN, CM
--- NOTE | 2022-09-02 10:38 | NURSING ---
This RN into room to obtain pt's VS and change dressing to eye. Noted pt had her purse in bed with her and there were medication bottles in purse. Asked pt if she had been taking those medications and explained hospital policy on pts taking home medications that are not ordered. Pt became very defensive stating that I needed to stop acting like her mom, that nurse yesterday told me I could take them, and I'm tired of you all lying to me and being so wishy-washy. This nurse informed pt that I am not trying to be her mother and the policy is to keep pt's safe if something were to happen because we need to know every medication that a pt is taking regardless if it is a prescribed medication or an over the counter medication or supplement. Pt then went on to say you are not taking these medications from me they are the only thing that help my blood sugar and only thing that brought it down last night. This RN educated pt that blood glucose was high last night and that she received several doses of fast acting insulin and a dose of long acting insulin which aided in bringing blood glucose down. Pt went on to state that she has been taking the supplements, which are carb & sugar block and 24hr blood sugar herb. Once again educated pt it is not advised to take them. Pt vocalized understanding. This RN unable to secure supplements d/t pt refusal of allowing them to leave her side. Pt very suspicious of staff. Dressing to eye changed, pt denies any further needs at this time; call light in reach. SW in to speak to pt. Updated charge master coordinator who will round with pt. Dr Jolley notified.
[2022-09-02] MEDS: Enoxaparin 80 MG/0.8 ML Syringe 70 MG SC (11:27)
--- NOTE | 2022-09-02 11:32 | PCM.DC.SUM ---
Providers Date of Admission: 08/31/22 Primary Care Physician: Dr. Gerber Pina, DO Consultations 08/31/22 12:32 Consult: Cardiology Routine Consulting Provider: Jack Harris Reason for Consult: Chest Pain EMERGENT Consult: No MD Notified: Yes Date Notified: 08/31/22 Time Notified: 11:51 Method of Notification: ED Physician Initiated Reason For Visit: CHEST PAIN Diagnosis Discharge Diagnosis (1) Non-STEMI (non-ST elevated myocardial infarction): Status: Acute Code(s): I21.4 - Non-ST elevation (NSTEMI) myocardial infarction Plan: Unclear significance but troponins are trending downwards. Patient be anticoagulated with enoxaparin, check 2D echocardiogram and consult cardiology. Continue aspirin, ticagrelor, atorvastatin and metoprolol [facility] 09/01 patient had a drug-eluting stent placed to the LAD. (2) Nausea and vomiting: Status: Acute Code(s): R11.2 - Nausea with vomiting, unspecified Plan: Unclear if this was cardiac in nature or related with a gastrointestinal issue. As needed antiemetics Add pantoprazole (3) Type 2 diabetes mellitus: Status: Acute Code(s): E11.9 - Type 2 diabetes mellitus without complications Plan: Patient not been on medications for some time prior to presentation. Stated that she stopped taking her metformin as well as glipizide because it did not make her feel well. She was taking an herbal supplement because that actually did make her feel well. She does not know what that herbal supplement was. Explained to her that I would suspect that the herbal supplement is likely benign but very likely not to be helpful in regards to her diabetes. Explained to her that it is best that she be put on medications to get her blood sugar under better control because of the long-term complications with diabetes. I also mention with her abdominal issues that is unclear if she has anything like diabetic gastroparesis. Check hemoglobin A1c At home she is taking metformin 1000 mg 4 times a day but had been sometime prior to this admission when she was taking. Patient may need more basal insulin rather than oral agents. a1C came back at greater than 14. Started on glargine 25 units BID , Will discharge patient with insulin glargine. Patient blood sugar dropped down to 85 this morning so we will do 30 units daily plus prandial insulin. Patient states that she has done this regimen previously. Plan Coronary artery disease: Continue with antiplatelet therapy, statin VTE prophylaxis: Not indicated as patient will be anticoagulated and currently under observation status. Medications at Discharge Home Medications multivitamin (Daily Multiple tablet) 1 ea PO DAILY 11/15/16 naproxen 500 mg tablet 500 mg PO BID PRN #20 tabs 11/15/16 vitamin E 100 unit capsule 100 unit PO DAILY 11/15/16 acetaminophen 325 mg tablet 650 mg PO Q6H PRN PRN Pain 1-10 Or Fever >100.7 #0 tabs 09/02/22 aspirin 81 mg tablet,delayed release 81 mg PO BREAKFAST #0 tabs 09/02/22 atorvastatin 40 mg tablet 40 mg PO QHS #30 tabs 09/02/22 insulin glargine-yfgn 100 unit/mL (3 mL) subcutaneous pen 30 unit (0.3 mL) subcut QHS #15 mL 09/02/22 insulin lispro 100 unit/mL subcutaneous pen (Humalog KwikPen (U-100) Insulin) 6 unit subcut .qac #15 mL 09/02/22 lisinopril 2.5 mg tablet 2.5 mg PO DAILY #30 tabs 09/02/22 metoprolol succinate 50 mg tablet,extended release 24 hr 50 mg PO BID #60 tabs 09/02/22 pantoprazole 40 mg tablet,delayed release 40 mg PO DAILY #30 tabs 09/02/22 ticagrelor 90 mg tablet (Brilinta) 90 mg PO BID #60 tabs 09/02/22 Hospital Course Procedures Cardiac catheterization Summary of Care Provided Minutes Spent on Discharge: 35 Hospital Course: Patient presents with a non-ST patient myocardial infarction. Patient was found to have an LAD stenosis and did require PCI with a drug-eluting stent. Patient tolerated the procedure well. While she was here, blood sugar was extremely high. A1c came back at greater than 14. Patient had been on insulin in the past as well as high-dose metformin and glipizide. The oral agents gave her abdominal issues and not feeling well. Discussed with the patient about starting insulin. Patient states that she would be comfortable with basal insulin as well as prandial insulin as she has done this before. Patient had been taking some herbal supplement because it made her feel better. Unclear what that actual supplement was but clearly not helping her diabetes with her A1c of greater than 14. Did discuss with her about the importance of diabetes control to help prevent additional long-term complications with that. Patient is agreeable to proceed. While she was here, patient was on the commode and passed out and hit her head sustained a superficial laceration over her right lateral eyelid. No ocular injury was noted. Weight / BMI Weight Weight: 63 kg Body Mass Index (BMI) 22.4 ABG / Lab / Microbiology Data Result Diagrams: 09/01/22 05:20 09/01/22 23:15 Laboratory: Laboratory Results - last 24 hr 09/01/22 05:20: Hemoglobin A1c > 14.0 H 09/01/22 10:58: Urine Test Negative 09/01/22 11:40: Urine Test Cancelled 09/01/22 12:50: Activated Clotting Time 299 H 09/01/22 16:45: POC Glucose 215 H 09/01/22 22:41: POC Glucose > 500 H* 09/01/22 23:15: Glucose 625 H* 09/02/22 01:41: POC Glucose 410 H 09/02/22 04:21: POC Glucose 157 H 09/02/22 05:58: POC Glucose 85 Radiography Diagnostic Testing: Radiology Impression Brain CT 09/02/22 04:28 IMPRESSION: No demonstrated acute intracranial process. Electronically Signed: Vel García MD at 5:48 EDT Reading Location ID and State: [facility] / [place] , Service support , Meaningful Use Info Meaningful Use Diagnoses (Choose all that apply): AMI AMI/Post PCI/Angioplasty Aspirin given w/in 24hrs of arrival?: Yes ASA at discharge?: Yes Antiplatelet Therapy at Discharge:: Yes Statins at discharge?: Yes Carlo/ARB at discharge?: Yes Beta Norma at discharge?: Yes Done w/ Acute IN measure.: Yes Documented LVEF (%): 55 Discharge Plan Admission Admit Date/Time: 08/31/22 15:56 Primary Reason for Your Visit: myocardial infarction. Attending Provider: Madan Jolley Primary Care Provider: Gerber Pina Consulting Providers: Jack Harris Instructions Patient Instructions: Cardiac Rehabilitation, Diabetes Planning Travel, Diabetes Low Blood Sugar Ch, Diabetes Serving Portion Sizes, Diabetes Manage Stress, Cardiac Cath Transradial, Diabetes Inspect Feet Additional Instructions / Restrictions: You had a myocardial infarction (heart attack) and required a cardiac stent. It is important that you take your medications as directed to prevent the stent that was placed from re-occluding potentially causing another heart attack. Follow up with cardiology. Your diabetes is poorly controlled. Your a1c level was greater than 14 (it should be less than 6). To help prevent long-term complications, it is important for you to check your blood sugar and take your insulin. Please keep a record of you blood sugar level in order to review them with you primary care doctor. Discharge Orders/Prescriptions Prescriptions: New atorvastatin 40 mg tablet 40 mg PO QHS Qty: 30 0RF acetaminophen 325 mg Tablet 650 mg PO Q6H PRN PRN (Reason: Pain 1-10 Or Fever >100.7) Qty: 0 0RF aspirin 81 mg Tablet,Delayed Release (Dr/Ec) 81 mg PO BREAKFAST Qty: 0 0RF pantoprazole 40 mg Tablet,Delayed Release (Dr/Ec) 40 mg PO DAILY Qty: 30 0RF insulin glargine-yfgn 100 unit/mL (3 mL) Insulin Pen 30 unit subcut QHS Qty: 15 0RF insulin lispro [Humalog KwikPen Insulin] 100 unit/mL Insulin Pen 6 unit subcut [facility] Qty: 15 0RF Protocol: 5. Sliding Scale Insulin High Dosing Condition: 150-209 mg/dl = 3 units Condition: 210-259 mg/dl = 6 units Condition: 260-324 mg/dl = 9 units Condition: 325-374 mg/dl = 12 units Condition: 375-409 mg/dl = 14 units Condition: 410-449 mg/dl = 16 units Condition: Greater than 449 call physician Protocol Text: - Use for Total Daily Dose of Insulin 81-120 units - Very insulin resistant or septic patients HIGH DOSING ALGORITHM lisinopril 2.5 mg tablet 2.5 mg PO DAILY Qty: 30 0RF Continued multivitamin [Daily Multiple] 1 EACH tablet 1 ea PO DAILY vitamin E 100 UNIT capsule 100 unit PO DAILY naproxen 500 MG tablet 500 mg PO BID PRN Qty: 20 0RF metoprolol succinate 50 mg tablet extended release 24 hr 50 mg PO BID Qty: 60 0RF Brilinta 90 mg tablet 90 mg PO BID Qty: 60 0RF Discontinued Atorvastatin Calcium 10 MG tablet 10 mg PO DAILY metformin 1,000 MG tablet 1,000 mg PO 4X/DAY glipizide 5 MG tablet 5 mg PO BIDAC cyclobenzaprine 10 MG tablet 10 mg PO TID PRN (Reason: Muscle Spasm) Qty: 20 0RF Referrals / Follow Up: [facility] [Provider Group] - Within 1 Month Gerber Pina DO [Primary Care Provider] - Within 2 Weeks Disposition Disposition (needs filled in before D/C Order can be placed): Home, Self Care
--- NOTE | 2022-09-02 11:48 | DCINST_ITS ---
Discharge Instructions Diet Discharge Diet: 2000 Calorie Control Diet Activity Discharge Activity: - (Return to work when ok by cardiology.) Dressing / Incision Call your doctor if you observe: Shortness of breath, Fainting spells and Chest pain Follow Up Care Test Results: Test results from this visit will be discussed in further detail at your follow- up appointment, if applicable. Discharge Plan Admission Admit Date/Time: 08/31/22 15:56 Primary Reason for Your Visit: myocardial infarction. Attending Provider: Madan Jolley Primary Care Provider: Gerber Pina Consulting Providers: Jack Harris Instructions Patient Instructions: Cardiac Rehabilitation, Diabetes Planning Travel, Diabetes Low Blood Sugar Ch, Diabetes Serving Portion Sizes, Diabetes Manage Stress, Cardiac Cath Transradial, Diabetes Inspect Feet Additional Instructions / Restrictions: You had a myocardial infarction (heart attack) and required a cardiac stent. It is important that you take your medications as directed to prevent the stent that was placed from re-occluding potentially causing another heart attack. Follow up with cardiology. Your diabetes is poorly controlled. Your a1c level was greater than 14 (it should be less than 6). To help prevent long-term complications, it is important for you to check your blood sugar and take your insulin. Please keep a record of you blood sugar level in order to review them with you primary care doctor. Discharge Orders/Prescriptions Prescriptions: New atorvastatin 40 mg tablet 40 mg PO QHS Qty: 30 0RF acetaminophen 325 mg Tablet 650 mg PO Q6H PRN PRN (Reason: Pain 1-10 Or Fever >100.7) Qty: 0 0RF aspirin 81 mg Tablet,Delayed Release (Dr/Ec) 81 mg PO BREAKFAST Qty: 0 0RF pantoprazole 40 mg Tablet,Delayed Release (Dr/Ec) 40 mg PO DAILY Qty: 30 0RF insulin glargine-yfgn 100 unit/mL (3 mL) Insulin Pen 30 unit subcut QHS Qty: 15 0RF insulin lispro [Humalog KwikPen Insulin] 100 unit/mL Insulin Pen 6 unit subcut .qa Qty: 15 0RF Protocol: 5. Sliding Scale Insulin High Dosing Condition: 150-209 mg/dl = 3 units Condition: 210-259 mg/dl = 6 units Condition: 260-324 mg/dl = 9 units Condition: 325-374 mg/dl = 12 units Condition: 375-409 mg/dl = 14 units Condition: 410-449 mg/dl = 16 units Condition: Greater than 449 call physician Protocol Text: - Use for Total Daily Dose of Insulin 81-120 units - Very insulin resistant or septic patients HIGH DOSING ALGORITHM lisinopril 2.5 mg tablet 2.5 mg PO DAILY Qty: 30 0RF Continued multivitamin [Daily Multiple] 1 EACH tablet 1 ea PO DAILY vitamin E 100 UNIT capsule 100 unit PO DAILY naproxen 500 MG tablet 500 mg PO BID PRN Qty: 20 0RF metoprolol succinate 50 mg tablet extended release 24 hr 50 mg PO BID Qty: 60 0RF Brilinta 90 mg tablet 90 mg PO BID Qty: 60 0RF Discontinued Atorvastatin Calcium 10 MG tablet 10 mg PO DAILY metformin 1,000 MG tablet 1,000 mg PO 4X/DAY glipizide 5 MG tablet 5 mg PO BIDAC cyclobenzaprine 10 MG tablet 10 mg PO TID PRN (Reason: Muscle Spasm) Qty: 20 0RF Referrals / Follow Up: [facility] [Provider Group] - Within 1 Month Gerber Pina DO [Primary Care Provider] - Within 2 Weeks Disposition Disposition (needs filled in before D/C Order can be placed): Home, Self Care
--- NOTE | 2022-09-02 12:03 | CRPHASE1 ---
Patient Communication PHII Cardiac Rehab Discussed with Patient:: Yes Guide to Cardiac Rehab Given to Patient:: Yes Cardiac Rehab Facility Choice List Given to Patient:: Yes Choice Program [facility] CR PHII:: Communication Given to CR Choice Program Other:: Communication Given to CR [place] Blocking Operator:: Jack Harris Cardiac Rehabilitation Info Cardiac Rehabilitation Program Information: Cardiac Rehab The cardiac rehab team at [facility] consists of highly skilled exercise physiologists, nurses, respiratory therapists and physicians working together with you. Our purpose is to help you have a full recovery and achieve the goals you set for yourself. Over the years many of our patients have returned to activities they assumed they would never do again! We can help restore your confidence and motivation to make lifestyle changes that can have a significant impact on your health and quality of life! We can help answer questions and concerns you may have about exercise, lifestyle, medications, diet, stress and anxiety which are common following a hospitalization. WE monitor ECG and vital signs during exercise and discuss your progress with you and report to your physician(s). Cardiac Rehab is proven to help reduce readmissions, improve functional capacity and lower recurrence of problems with your heart. Our Cardiac Rehab program is Certified by the [place] (AACVPR) and Accredited by the [employer] through our [facility]. You can contact us at . We invite you to call us with your questions or to get started in our program. If you have other questions or concerns be sure to ask your physician/provider during your follow-up visit. WE look forward to seeing you!
--- NOTE | 2022-09-02 12:04 | CRPH1.INSTRU ---
General Education CAD and cardiac anatomy and function:: Patient communicates acknowledgment Explanation of diagnoses and procedures:: Patient communicates acknowledgment Sign/Symptoms of SD:: Patient communicates acknowledgment Antiplatelet therapy: Patient communicates acknowledgment Proper use of NTG-SL: Patient communicates acknowledgment Emergency procedures and activation of EMS: Patient communicates acknowledgment Compliance of all prescribed medications: Patient communicates acknowledgment Smoking Patient Nicotine/Smoking Risk Factors Are:: Non-smoker Recommendations Include:: Second-hand smoke recommendation Nicotine/Smoking Response Code:: Patient communicates acknowledgment Dyslipidemia Recommendations Include:: Lipid profile not available Dyslipidemia Response Code:: Patient communicates acknowledgment Overweight/Obesity Patient Overweight/Obesity Risk Factors Are:: BMI Normal [18-25 & < 65 years old] Recommendations Include:: Weight loss of 5-10%, Reduced calorie diet, Exercise 5-7 times/week Overweight/Obesity:: Patient communicates acknowledgment Hypertension Recommendations Include:: Maintain BP <130/85 Hypertension:: Patient communicates acknowledgment Heart Disease Patient Heart Disease Risk Factors Are:: Family history of heart disease < 65 years old, Previous cardiac event Recommendations Include:: Educated family members of their risk Heart Disease Response Code:: Patient communicates acknowledgment Diabetes Patient Diabetes Risk Factors Are:: No documented hx of diabetes, Elevated blood sugars Recommendations Include:: Maintain fasting blood sugars 70-110 md/dL, Maintain HgbA1c of 6% or less, Monitor blood sugar as prescribed, Diabetic dietary guidelines, Decrease/maintain body weight Diabetes:: Patient communicates acknowledgment Metabolic Syndrome Patient Metabolic Syndrome Risk Factors Are [3 of 5]:: Fasting blood sugar > 100 mg/dL Recommendations Include:: Does not meet criteria, Reinforce compliance to risk factor modifications, Encouraged follow-up with Primary Care Physician Metabolic Syndrome Response Code:: Patient communicates acknowledgment Sedentary Patient Sedentary Risk Factors Are:: Lack of regular exercise Recommendations Include:: Aerobic exercise 5-7 times/week for 20-30 minutes continuously, Benefits of regular exercise, Discussed home walking program, Monitored Outpatient Cardiac Rehab Sedentary Response Code:: Patient communicates acknowledgment Stress Recommendations Include:: Identification of stressors, and assessment of coping skills, Stress management techniques Stress Response Code:: Patient communicates acknowledgment
[2022-09-02 12:05] LABS: Bedside Glucose 291 mg/dL (74-106)
--- NOTE | 2022-09-02 13:32 | CASEMGMT ---
Patient will be discharging on Brilinta, savings card provided to patient.
--- NOTE | 2022-09-02 15:02 | PHA.DC.MR ---
Pharmacy Service has performed discharge medication reconciliation for this patient. The patient's discharge medication list was reviewed for discrepancies and discrepancies were resolved. Medication education papers prepared, patient d/c'ed before I was able to residential youth counselor. Home Medications multivitamin (Daily Multiple tablet) 1 ea PO DAILY 11/15/16 naproxen 500 mg tablet 500 mg PO BID PRN #20 tabs 11/15/16 vitamin E 100 unit capsule 100 unit PO DAILY 11/15/16 acetaminophen 325 mg tablet 650 mg PO Q6H PRN PRN Pain 1-10 Or Fever >100.7 #0 tabs 09/02/22 aspirin 81 mg tablet,delayed release 81 mg PO BREAKFAST #0 tabs 09/02/22 atorvastatin 40 mg tablet 40 mg PO QHS #30 tabs 09/02/22 insulin glargine-yfgn 100 unit/mL (3 mL) subcutaneous pen 30 unit (0.3 mL) subcut QHS #15 mL 09/02/22 insulin lispro 100 unit/mL subcutaneous pen (Humalog KwikPen (U-100) Insulin) 6 unit subcut .qac #15 mL 09/02/22 lisinopril 2.5 mg tablet 2.5 mg PO DAILY #30 tabs 09/02/22 metoprolol succinate 50 mg tablet,extended release 24 hr 50 mg PO BID #60 tabs 09/02/22 pantoprazole 40 mg tablet,delayed release 40 mg PO DAILY #30 tabs 09/02/22 pen needle, diabetic 29 gauge x 1/2 #100 ea 09/02/22 ticagrelor 90 mg tablet (Brilinta) 90 mg PO BID #60 tabs 09/02/22
== END 2022-09-02 14:01 | disposition home or self-care (01) | DRG 247 ==
LOC: ED 11:31 → PCU 11:56
PROVIDERS: Family Medicine; Internal Medicine Interventional Cardiology; Emergency Provider Emergency Medicine; PCP Student in an Organized Health Care Education/Training Program
DX: I21.4 Non-ST elevation (NSTEMI) myocardial infarction (principal); E11.65 Type 2 diabetes mellitus with hyperglycemia; I25.110 Atherosclerotic heart disease of native coronary artery with unstable angina pectoris; E78.5 Hyperlipidemia, unspecified; W18.12XA Fall from or off toilet with subsequent striking against object, initial encounter; S01.111A Laceration without foreign body of right eyelid and periocular area, initial encounter; I25.2 Old myocardial infarction; R11.2 Nausea with vomiting, unspecified; R55 Syncope and collapse; Z79.84 Long term (current) use of oral hypoglycemic drugs; Z79.899 Other long term (current) drug therapy; Z95.5 Presence of coronary angioplasty implant and graft; Y92.239 Unspecified place in hospital as the place of occurrence of the external cause
CPT/HCPCS: 36415; 70450; 80048; 80053; 81025; 82947; 82962; 83036; 83690; 84484; 85025; 85347; 92928; 93005; 93306; 93454; 99152; 99153; 99285; J7040; Q9967; A4216; C1725; C1769; C1874; C1887; C1894; C9600; J2405

== ENCOUNTER 2022-09-03 20:08 | Emergency (ER) | payer OTHER, MEDICAID, SELFPAY ==
[2022-09-03 20:09] VITALS: BP 138/81; PULSE 86; RESP 15; TEMP 36.3; O2SAT 98; BMI 23.2
--- NOTE | 2022-09-03 20:42 | EDS_ITS ---
HPI <JAS Washington - Last Filed: 09/03/22 20:48> History of Present Illness Chief Complaint: Head Injury Narrative Narrative: Patient a 52-year-old female who has history of diabetes, CAD, history of an RI on a Brilinta presents to the emergency department for continuing of bleeding from a facial wound. Patient was a patient here upstairs, on her discharge day, she had a mechanical fall striking the right side of her head on the ground. Patient did have abrasions, ecchymosis around her right eye, she did receive a CT scan that day as well as an x-ray of the right wrist. She did have a superficial laceration to the right eyebrow that continued to bleed. Patient states that the bleeding continues and she is here for evaluation. She denies any other injury. PFS <JAS Washington - Last Filed: 09/03/22 20:48> [facility] Medical History (Updated 09/03/22 @ 20:48 by JAS Washington) Myocardial infarct Type 2 diabetes mellitus Home Medications multivitamin (Daily Multiple tablet) 1 ea PO DAILY 11/15/16 [History Last Taken Unknown] naproxen 500 mg tablet 500 mg PO BID PRN #20 tabs 11/15/16 [Rx Last Taken Unknown] vitamin E 100 unit capsule 100 unit PO DAILY 11/15/16 [History Last Taken Unknown] acetaminophen 325 mg tablet 650 mg PO Q6H PRN PRN Pain 1-10 Or Fever >100.7 #0 tabs 09/02/22 [Rx Last Taken Unknown] aspirin 81 mg tablet,delayed release 81 mg PO BREAKFAST #0 tabs 09/02/22 [Rx Last Taken Unknown] atorvastatin 40 mg tablet 40 mg PO QHS #30 tabs 09/02/22 [Rx Last Taken Unknown] insulin glargine-yfgn 100 unit/mL (3 mL) subcutaneous pen 30 unit (0.3 mL) subcut QHS #15 mL 09/02/22 [Rx Last Taken Unknown] insulin lispro 100 unit/mL subcutaneous pen (Humalog KwikPen (U-100) Insulin) 6 unit subcut .qac #15 mL 09/02/22 [Rx Last Taken Unknown] lisinopril 2.5 mg tablet 2.5 mg PO DAILY #30 tabs 09/02/22 [Rx Last Taken Unknown] metoprolol succinate 50 mg tablet,extended release 24 hr 50 mg PO BID #60 tabs 09/02/22 [Rx Last Taken Unknown] pantoprazole 40 mg tablet,delayed release 40 mg PO DAILY #30 tabs 09/02/22 [Rx Last Taken Unknown] pen needle, diabetic 29 gauge x 1/2 #100 ea 09/02/22 [Rx Last Taken Unknown] ticagrelor 90 mg tablet (Brilinta) 90 mg PO BID #60 tabs 09/02/22 [Rx Last Taken Unknown] Allergy/AdvReac Type Severity Reaction Status Date / Time latex Allergy Rash Verified 08/31/22 07:55 morphine AdvReac Nausea Verified 08/31/22 07:55 Surgical History History of coronary artery stent placement Social History (Updated 08/31/22 @ 13:[address] Madan Jolley, DO) Smoking Status: Never smoker alcohol intake: never substance use type: does not use ROS <JAS Washington - Last Filed: 09/03/22 20:48> ROS ED ROS Narrative Constitutional: Negative for fever, chills, weight loss, weakness Eyes: Negative for vision loss, vision change, double vision ENT: Negative for any sore throat, ear pain, congestion Cardiovascular: Negative for any chest pain, tightness, palpitations Respiratory: Negative for any cough, sputum production, hemoptysis, dyspnea, dyspnea on exertion, orthopnea Gastrointestinal: Negative for any abdominal pain, nausea, vomiting, diarrhea, constipation, blood in stool, blood in vomit : Negative for any urinary frequency, dysuria, retention, blood in urine Muscle skeletal: Negative for any muscle joint pain, stiffness, myalgias, arthralgias, neck pain, back pain Neurological: Negative for any headache, syncope, numbness or tingling, dizziness Skin: Negative for any rashes, lumps, itching, abrasions. Positive for laceration of the right eyebrow Psychiatric: Negative for any depression, anxiety, stress, suicidal ideation, homicidal ideation Hematologic: Negative for any easy bruising, excessive bruising, easy bleeding Allergies: Negative for any eczema, hives, rash EXAM <JAS Washington - Last Filed: 09/03/22 20:48> Physical Exam Narrative Exam Narrative: Vital signs reviewed. HEET: Head normocephalic atraumatic, TMs clear bilaterally. Posterior pharynx is clear, moist mucous membranes. Nares clear bilaterally. Pupils are equal round reactive to light. Negative for any hemotympanum, negative for any septal hematoma. Patient does have ecchymosis, edema around the right eye. Patient is able to open it however she cannot open it fully secondary to the edema. She does have a 0.5 cm laceration just below the right eyebrow, this does continually bleed. Neck: Supple with no lymphadenopathy or tenderness. No signs of meningismus, negative jolt sign. Cardiac: Regular rate and rhythm no murmurs gallops or rubs, equal peripheral pulses bilaterally. Respiratory: Lungs clear to auscultation bilaterally. No chest tenderness. Abdomen: Soft, nontender, nondistended. No abdominal bruit or pulsatile masses. No hepatosplenomegaly Extremities: No peripheral edema, no signs of gross trauma or deformity. Active full range of motion of all extremities. Neuro: Cranial nerves II through XII intact, no focal neurological deficits. Skin: Clean dry and intact with no rash, purpura, petechiae, vesicles or pustules. Backs/flank: No CVA tenderness, no midline spinal tenderness, no deformity. Psych: Normal mood and affect. No SI, HI or acute psychosis. Const Vital Signs: 09/03/22 20:09 09/03/22 20:46 Temperature 97.4 F L Temperature Source Temporal Pulse Rate 86 Respiratory Rate 15 Respiratory Effort Normal Respiratory Depth Normal Respiratory Pattern Normal Blood Pressure 138/81 H Blood Pressure Mean 100 Pulse Ox 98 Oxygen Delivery Method Room Air Room Air <Dr. Chacho Reno DO - Last Filed: 09/03/22 22:29> Physical Exam Const Vital Signs: 09/03/22 20:09 09/03/22 20:46 Temperature 97.4 F L Temperature Source Temporal Pulse Rate 86 Respiratory Rate 15 Respiratory Effort Normal Respiratory Depth Normal Respiratory Pattern Normal Blood Pressure 138/81 H Blood Pressure Mean 100 Pulse Ox 98 Oxygen Delivery Method Room Air Room Air MDM <JAS Washington - Last Filed: 09/03/22 20:48> MDM Treatment and Re-Evaluation :: Patient appears well, patient appears nontoxic, vital signs are stable. Patient presents to the emergency department for a laceration that occurred yesterday that continues to bleed secondary to being on Brilinta. Physical examination shows a small laceration that it does continue to bleed. It is difficult secondary to the ability to put pressure on this area secondary to it being sore from the edema and ecchymosis. Patient did have CTs, these do not need to be repeated. For this laceration, I was able to anesthetize the area with lidocaine with epinephrine. Is able to use normal saline to washout the area. I did place 2 simple ruptured sutures of 5-0 Ethilon which approximated well and did stop the bleeding. Patient tolerated well. Patient will continue to ice. She will take her medications as prescribed and had the sutures removed in 5 to 7 days. She is happy with the plan of care all questions answered. <Dr. Chacho Reno DO - Last Filed: 09/03/22 22:29> [facility] Narrative Medical decision making narrative: Attending note: Patient seen and evaluated with [employer]. I perform my own [id number] evaluation. I agree with the plan of work-up. Increasing bleeding above right I have a fall in the hospital with negative imagings. She is on Brilinta. Exam 0.5cm laceration lateral right brow. This was repaired by [employer] with bleeding controlled. Outpatient follow-up. Procedures <JAS Washington - Last Filed: 09/03/22 20:48> Lacerations Right eyebrow laceration: Length: 0.2 in Depth: Skin Shape: Linear Prep: Sterile Conditions Laceration repair: Irrigated, Lidocaine with epi and Skin sutures Irrigated (ml): 50 Number of Sutures/Aristides: 2 Suture Information: Simple and 5-0 Comment: Sterile gloves, sterile drapes were used Discharge Plan Triage Chief Complaint: Head Injury ED Midlevel Provider: Niko Gilliam ED Provider: Chacho Reno Dx/Rx/DC Orders Clinical Impression: Face lacerations Instructions: ED Head Injury (Adult), ED Laceration Minimize Scars Prescriptions: No Action multivitamin [Daily Multiple] 1 EACH tablet 1 ea PO DAILY vitamin E 100 UNIT capsule 100 unit PO DAILY naproxen 500 MG tablet 500 mg PO BID PRN Qty: 20 0RF atorvastatin 40 mg tablet 40 mg PO QHS Qty: 30 0RF acetaminophen 325 mg Tablet 650 mg PO Q6H PRN PRN (Reason: Pain 1-10 Or Fever >100.7) Qty: 0 0RF aspirin 81 mg Tablet,Delayed Release (Dr/Ec) 81 mg PO BREAKFAST Qty: 0 0RF pantoprazole 40 mg Tablet,Delayed Release (Dr/Ec) 40 mg PO DAILY Qty: 30 0RF insulin glargine-yfgn 100 unit/mL (3 mL) Insulin Pen 30 unit subcut QHS Qty: 15 0RF insulin lispro [Humalog KwikPen Insulin] 100 unit/mL Insulin Pen 6 unit subcut .[facility] Qty: 15 0RF Protocol: 5. Sliding Scale Insulin High Dosing Condition: 150-209 mg/dl = 3 units Condition: 210-259 mg/dl = 6 units Condition: 260-324 mg/dl = 9 units Condition: 325-374 mg/dl = 12 units Condition: 375-409 mg/dl = 14 units Condition: 410-449 mg/dl = 16 units Condition: Greater than 449 call physician Protocol Text: - Use for Total Daily Dose of Insulin 81-120 units - Very insulin resistant or septic patients HIGH DOSING ALGORITHM lisinopril 2.5 mg tablet 2.5 mg PO DAILY Qty: 30 0RF metoprolol succinate 50 mg tablet extended release 24 hr 50 mg PO BID Qty: 60 0RF Brilinta 90 mg tablet 90 mg PO BID Qty: 60 0RF (DME) pen needle, diabetic 29 gauge x 1/2 needle See Rx Instructions .Route Qty: 100 0RF Rx Instructions: As directed Primary Care Provider: Gerbre Pina Referrals: Gerber Pina DO [Primary Care Provider] - Activity Restrictions/Additional Instructions: Please have your sutures removed in 5 to 7 days. Disposition Disposition: Home, Self Care Discharge Date/Time: 09/03/22 20:54
[2022-09-03] MEDS: Lidocaine 1% /Epi 1:100 (20ml) 20 ML Vial INFILT (20:48)
== END 2022-09-03 20:54 | disposition home or self-care (01) ==
LOC: ED 20:54
PROVIDERS: Emergency Provider Emergency Medicine; PCP Student in an Organized Health Care Education/Training Program; Visit Provider Emergency Medicine
DX: S01.111A Laceration without foreign body of right eyelid and periocular area, initial encounter (principal); E11.9 Type 2 diabetes mellitus without complications; Z79.4 Long term (current) use of insulin; Z79.02 Long term (current) use of antithrombotics/antiplatelets; S05.11XA Contusion of eyeball and orbital tissues, right eye, initial encounter; I25.10 Atherosclerotic heart disease of native coronary artery without angina pectoris; I25.2 Old myocardial infarction; Z79.82 Long term (current) use of aspirin; Z79.899 Other long term (current) drug therapy; W19.XXXA Unspecified fall, initial encounter
CPT/HCPCS: 12011; 99283

== ENCOUNTER 2024-05-03 09:56 | Inpatient (IN) | payer SELFPAY ==
[2024-05-03] VITALS (7 sets, daily range): BP systolic 118–168; BP diastolic 65–101; PULSE 87–103; RESP 14–149; TEMP 36.6–37.2; O2SAT 95–100; BMI 24.4
--- NOTE | 2024-05-03 11:21 | EX.ED.DYSGE1 ---
HPI History of Present Illness Chief Complaint: Abn Labs Informant: patient Narrative Narrative: 54-year-old female history of diabetes, CAD with stents on the blood thinner Brilinta. History of CHF. Saw her primary care physician's office last week had bilateral lower extremity swelling. She states they put her back on blood pressure medication lisinopril and the leg swelling is improving but still there. She denies any chest pain or shortness of breath. She was called today by her primary care physician said her lab work they did was off and they wonder sent to the ER. She does not know what lab was offered why specifically they sent her in. Prior similar symptoms: Yes Recent Illness/Hospitalization: No PFSH PFSH Medical History Chest pain Hyperglycemia Essential hypertension Atherosclerotic heart disease of [place] coronary artery without angina pectoris History of CAD (coronary artery disease) Myocardial infarct Type 2 diabetes mellitus Home Medications ?Medication ?Instructions ?Recorded ?Last Taken ?Type acetaminophen 325 mg tablet 650 mg (2 x 325 mg) PO Q6H PRN PRN 09/02/22 Unknown Rx Pain 1-10 Or Fever >100.7 #0 tabs aspirin 81 mg tablet,delayed 81 mg PO BREAKFAST #0 tabs 09/02/22 Unknown Rx release pen needle, diabetic 29 gauge x #100 ea 09/02/22 Unknown Rx 1/2 lisinopril 10 mg tablet 10 mg PO DAILY #90 tabs 10/11/22 Unknown Rx ticagrelor 90 mg tablet (Brilinta) 90 mg PO BID #60 tabs 02/02/24 Unknown Rx Allergy/AdvReac Type Severity Reaction Status Date / Time latex Allergy Rash Verified 05/03/24 09:57 morphine AdvReac Nausea Verified 05/03/24 09:57 Family History Other Hypertension Surgical History Stented coronary artery (09/01/22) History of coronary artery stent placement (~08/24/20) Social History Smoking Status: Never smoker alcohol intake: never substance use type: does not use caffeine: No ROS ROS ED ROS Narrative Denies recent illness. Bilateral lower extremity swelling. Constitutional Constitutional ED: Denies chills or fever(s) Eyes Eyes: Denies blurry vision ENT ENT ED: Denies ear pain Cardiovascular Cardiovascular: Denies chest pain or palpitations Respiratory/Chest Respiratory/Chest: Denies cough or dyspnea Gastrointestinal Gastrointestinal: Denies abdominal pain Genitourinary Genitourinary ED: Denies dysuria or hematuria Integumentary Denies abscess or Abrasions Neurologic Neurologic: Denies headache(s) Psychiatric Psychiatric: Denies anxiety or depression Endocrine Endocrinology: Denies cold intolerance Hematologic/Lymphatic Hematologic/Lymphatic: Reports none Allergic/Immunologic Allergic/Immunologic ED: Denies mouth swelling, tongue swelling or urticaria EXAM Physical Exam Narrative Exam Narrative: Well-appearing 54-year-old female. Vital signs stable afebrile. H EENT exam unremarkable. Moist mucous membranes. No facial droop. Normal speech. Neck nontender JVD. Lungs clear to auscultation bilaterally. Heart regular rhythm no murmur. Chest wall and ribs nontender. Abdomen soft nontender. Moving all 4 extremities. 2+ pitting edema both lower extremities. Equal symmetrical. Calves are nontender without edema or cords. Normal independent trader strength. Normal dorsi plantarflexion. Neurologically she is awake alert no focal motor deficits. Const Vital Signs: 05/03/24 09:56 05/03/24 10:33 05/03/24 11:29 Temperature 98 F Temperature Source Temporal Pulse Rate 95 Respiratory Rate 149 H Respiratory Effort Normal Respiratory Pattern Normal Blood Pressure 153/91 H Blood Pressure Mean 111 Pulse Ox 95 Oxygen Delivery Method Room Air Room Air 05/03/24 11:56 05/03/24 13:00 Temperature Temperature Source Pulse Rate 94 99 Respiratory Rate 17 18 Respiratory Effort Respiratory Pattern Blood Pressure 167/101 H 155/101 H Blood Pressure Mean 123 119 Pulse Ox 98 98 Oxygen Delivery Method Room Air Room Air Positive well nourished and well developed; Negative for cachectic, contractures or unkempt General Appearance ED: well developed and NAD; Negative for unkempt, cachectic, contractures, cyanotic, diaphoretic or pallor Nutritional Appearance: Negative for cachectic HEENT Reports moist mucous membranes Negative for trauma or tenderness Eyes PERRL and EOMs intact bilaterally General Eye ED: Negative for pale conjunctiva or scleral icterus Neck no lymphadenopathy, supple and no JVD General: Negative for tenderness Lymph Lymphatic: Negative for other Chest Wall inspection of chest normal and palpation of chest normal Chest: Negative for other Resp normal respiratory effort and clear to auscultation bilaterally Effort and Inspection: Negative for retractions Auscultation: Negative for rales, rhonchi, wheezes or diminished lung sounds Cardio regular rate, regular rhythm, S1 normal heart sound, S2 normal heart sound and no murmurs GI normal to inspection, nondistended, normoactive bowel sounds, non-tender, non-distended and no masses Palpation: soft; Negative for tender or guarding Back/Spine no CVA tenderness General Back: Negative for CVA tenderness Cervical Spine: Negative for cervical spine tenderness Thoracic Spine / Upper Back: Negative for thoracic spinal tenderness or paraspinal muscle tenderness Lumbar Spine / Lower Back: Negative for lumbar spinal tenderness Extremity Negative for normal to inspection Extremity Narrative: Bilateral 2+ pitting edema both lower extremities. General Extremety ED: Yes edema; Negative for tenderness General Extremity: edema Neuro oriented x3 and CN's II-XII intact bilaterally Sensorium / Orientation: alert Motor Exam: strength 5/5 throughout; Negative for general weakness or strength abnormal Psych mental status grossly normal Appearance: Negative for unkempt Attitude: No agitated Mood & Affect: Negative for depressed, anxious or tearful Skin no rashes or lesions noted and no wounds General Skin Exam: Negative for jaundice or pallor Lesions: No lesion noted Rashes: No rashes noted MDM MDM MDM Narrative Medical decision making narrative: 54-year-old female with diabetes, CHF cardiac disease on Brilinta. Bilateral lower extremity edema but she states is actually improving from a week ago. She does not have significant complaints. Said she was sent in by her primary care physician's office due to abnormal labs but she does not know exactly what labs those were or why she was sent in. She initially taken herself off of all of her medications recently she was placed back on her blood thinner and lisinopril for her blood pressure. She denies being on Lasix or another diuretic. History & Record Review Discussion w/independent historian: Patient Additional record(s) reviewed:: Prior inpatient record, Prior outpatient record, Prior ED visit, Prior labs and No prior records Lab Data Attestation: I reviewed the patient's lab results. Lab results narrative: CBC shows white count 3.9. H&H is 6.7 and 24. Platelets 603. Electrolytes show sodium 130. Gap 9. BUN of 22 creatinine 1 patient is diabetic her blood sugars 560. She has a normal gap. She is not in DKA. Liver enzymes are unremarkable. Chest x-ray shows cardiomegaly.. Labs: Laboratory Results - last 24 hr 05/03/24 10:10 WBC 3.9 L RBC 3.94 L Hgb 6.7 L Hct 24.5 L MCV 62.2 L MCH 17.0 L MCHC 27.3 L RDW Std Deviation 46.2 H RDW Coeff of Rachael 21.4 H Plt Count 603 H MPV 9.7 Immature Gran % (Auto) 0.300 Neut % (Auto) 70.6 H Lymph % (Auto) 16.2 L Kay % (Auto) 10.3 H Eos % (Auto) 2.1 Baso % (Auto) 0.5 Absolute Neuts (auto) 2.8 Absolute Lymphs (auto) 0.63 L Nucleated RBC % 0 Hypochromasia 2+ Anisocytosis 2+ Ovalocytes 1+ Sodium 130 L Potassium 3.9 Chloride 96 L Carbon Dioxide 26.0 Anion Gap 9 BUN 22 H Creatinine 1.01 Estim Creat Clear Calc 63.36 Est GFR (MDRD) Af Amer 74 Est GFR (MDRD) Non-Af 61 BUN/Creatinine Ratio 21.8 H Glucose 560 H* Calcium 8.9 Total Bilirubin 0.40 AST 29 ALT 45 Alkaline Phosphatase 113 Troponin I High Sens 41 Total Protein 6.8 Albumin 2.6 L Globulin 4.2 Albumin/Globulin Ratio 0.6 L Radiography Chest X-Ray - ED: 1 View, Read by ED Physician, Read by Radiologist, Lungs, Mediastinum, Bony Structures, No Acute Disease, Chronic Changes and Cardiomegaly Diagnostic Testing: Clinical Impression(s) from Imaging Studies Chest X-Ray 05/03/24 11:29 IMPRESSION: Mild cardiomegaly. The lungs are clear. Electronically Signed: Aris Lugo MD at 12:15 EST , Chest x-ray, portable, single view interpreted by myself and the radiologist. Shows chronic cardiomegaly no acute process. No effusions. No pulmonary edema. Rhythm Strip Rhythm Strip: Sinus Rhythm Rate: 92 Ectopy: None EKG Initial EKG: Attestation: I personally reviewed and interpreted this EKG as follows: Interpretation: Sinus Rhythm and No Acute Injury Pattern Comments: Normal sinus rhythm rate 92 no acute signs of PA or ischemia. No dysrhythmia. Discharge Plan Triage Chief Complaint: Abn Labs ED Provider: Oumar Perez Dx/Rx/DC Orders Clinical Impression: Anemia, Transfusion of blood during current hospitalisation, Hyperglycemia due to diabetes mellitus, History of CHF (congestive heart failure), History of CAD (coronary artery disease), Chronic anticoagulation Prescriptions: No Action lisinopril 10 mg tablet 10 mg PO DAILY Qty: 90 3RF acetaminophen 325 mg Tablet 650 mg PO Q6H PRN PRN (Reason: Pain 1-10 Or Fever >100.7) Qty: 0 0RF aspirin 81 mg Tablet,Delayed Release (Dr/Ec) 81 mg PO BREAKFAST Qty: 0 0RF (DME) pen needle, diabetic 29 gauge x 1/2 needle See Rx Instructions .Route Qty: 100 0RF Rx Instructions: As directed Brilinta 90 mg tablet 90 mg PO BID Qty: 60 12RF Primary Care Provider: Gerber Pina Referrals: Gerber Pina DO [Primary Care Provider] - Print Language: Danish Disposition Disposition: Acute Care Hospital [facility]
--- NOTE | 2024-05-03 11:29 | RAD_ITS ---
STUDY: X-RAY CHEST REASON FOR EXAM: Female, 54 years old. Chest pain TECHNIQUE: Single AP portable view of the chest. COMPARISON: None. FINDINGS: EKG electrodes are seen. The lungs are clear and expanded. There is no demonstrated pleural abnormality. There is mild cardiac enlargement. Normal mediastinum and [place]. Normal visualized pulmonary arteries. Normal visualized aortic arch and descending thoracic aorta. Normal visualized thoracic spine. Normal visualized ribs, clavicles, and shoulders. There is no demonstrated abnormality of the visualized soft tissue structures of the upper abdomen. RAD/Chest 1 View (Portable) IMPRESSION: Mild cardiomegaly. The lungs are clear. Electronically Signed: Aris Lugo MD at 12:15 EST ,
[2024-05-03 11:43] LABS: Absolute Lymphocyte Count 0.63 X10^3/uL (0.83-4.51); Absolute Neutrophil Count 2.8 X10^3/uL (2.0-7.7); Basophil# 0.02 X10^3/uL; Basophil% 0.5 % (0-1); Eosinophil# 0.08 X10^3/uL; Eosinophils% 2.1 % (0-5); Hematocrit 24.5 % (37-47); Hemoglobin 6.7 g/dL (12.0-15.0); Lymphocyte # 0.63 X10^3/ul (0.83-4.51); Lymphocyte % 16.2 % (19-41); Mean Corp Hgb Conc 27.3 g/dL (32-36); Mean Corpuscular Volume 62.2 fL (81-99); Mean Platelet Vol. 9.7 fl (6.2-12.0); Monocyte% 10.3 % (0-10); NRBC Flagged by Analyzer 0 % (0-5); Neutrophil # 2.75 X10^3/uL (2.7-7.7); Neutrophil % 70.6 % (47-70); POSITIVE MORPHOLOGY YES; Platelet Count 603 K/mm3 (150-450); RBC Distribution Width CV 21.4 % (11.6-14.6); RBC Distribution Width SD 46.2 fl (35.1-43.9); Red Blood Count 3.94 M/mm3 (4.2-5.4); White Blood Count 3.9 K/mm3 (4.4-11.0)
[2024-05-03 11:45] LABS: Differential Indicated SCAN CRITERIA MET
--- NOTE | 2024-05-03 12:08 | ED.RN ---
pt given paper scrubs, diaper and wipes. pt is able to ambulate.
[2024-05-03 12:12] LABS: ALB/GLOB Ratio 0.6 RATIO (0.9-2.4); AST(SGOT) 29 U/L (15-37); Alanine Aminotransfer ALT/SGPT 45 U/L (13-56); Albumin, Serum 2.6 g/dL (3.2-5.0); Alkaline Phosphatase 113 U/L (45-117); Anion Gap 9 (5-15); BUN 22 mg/dL (7-18); BUN/Creat Ratio 21.8 RATIO (10-20); Calcium,Total 8.9 mg/dL (8.5-10.1); Chloride 96 mmol/L (98-107); Creatinine, Serum 1.01 mg/dL (0.55-1.02); EST Glomerular Filtration Rate 61 mL/min (>60); Est Glom Filt Rate - Afr Amer 74 mL/min (>60); Estimated Creatinine Clearance 63.36 ml/min; Globulin 4.2 g/dL (2.2-4.2); Glucose 560 mg/dL (74-106); Potassium 3.9 mmol/L (3.5-5.1); Protein, Total 6.8 g/dL (6.4-8.2); Sodium Level 130 mmol/L (136-145); Troponin-I HS 41 pg/mL (3.0-54.0)
[2024-05-03 12:28] LABS: Anisocytosis 2+; Hypochromasia 2+; Ovalocyte 1+
--- NOTE | 2024-05-03 14:49 | HP.PCM.HOS_ITS ---
HPI - General General Date of Admission: 05/03/24 Date of Service: 05/03/24 Chief Complaint: Abnormal labs HPI Narrative JYOTI GUZMAN, is a 54 F who presented to the emergency department at [facility] on 05/03/2024 at the instruction of her primary care physician at the [facility] for abnormal hemoglobin. The patient was seen in her primary care office last week and had bilateral lower extremity edema. She had been noncompliant with her home medications including insulin, blood pressure medication and and antiplatelet therapy after stent placement and her medications were reinstituted. Lab work was obtained and she was called today letting her know that she had abnormal hemoglobin and instructed her to come to the emergency department. She states she has been asymptomatic. She feels that her leg swelling is better. She stated she had an admission in September for heart failure however does not look she came to this hospital. Our last echocardiogram showed normal EF. She does have a known history of coronary disease for which stent was placed in the LAD in 2022. She has had previous stents done elsewhere. Vital signs on presentation showed a temperature of 98, heart rate 95, respiratory rate was 16, blood pressure was 153/91 and pulse ox was 95% on room air. CBC was markedly abnormal with a leukopenia, severe anemia with a hemoglobin of 6.7, and thrombocytosis with a platelet count of 603,000. Her last hemoglobin here was in August 2022 and was 11.3. Chemistry panel showed mild hyponatremia with a sodium of 130, normal renal function, serum glucose of 560. I obtain iron studies and she was found to be markedly iron deficient with a total iron of 16, iron saturation of 3.4, ferritin of 5 and an elevated TIBC at 474. Liver function was normal. Chest x-ray showed mild cardiomegaly unremarkable lung randolph. With her hemoglobin being severely low the intent was to transfuse 2 units packed red blood cells however we were notified by family that she is Nondenominational. This was further discussed with the patient and she did admit to being Nondenominational and declined blood transfusion. She was amenable to workup and iron replacement via IV but no blood products. [facility] Medical History Hypertension Chest pain Hyperglycemia Essential hypertension Atherosclerotic heart disease of [place] coronary artery without angina pectoris History of CAD (coronary artery disease) Myocardial infarct Type 2 diabetes mellitus Home Medications ?Medication ?Instructions ?Recorded ?Last Taken ?Type acetaminophen 325 mg tablet 650 mg (2 x 325 mg) PO Q6H PRN PRN 09/02/22 Unknown Rx Pain 1-10 Or Fever >100.7 #0 tabs aspirin 81 mg tablet,delayed 81 mg PO BREAKFAST #0 tabs 09/02/22 Unknown Rx release pen needle, diabetic 29 gauge x #100 ea 09/02/22 Unknown Rx 1/2 lisinopril 10 mg tablet 10 mg PO DAILY #90 tabs 10/11/22 Unknown Rx ticagrelor 90 mg tablet (Brilinta) 90 mg PO BID #60 tabs 02/02/24 Unknown Rx Allergy/AdvReac Type Severity Reaction Status Date / Time latex Allergy Rash Verified 05/03/24 09:57 morphine AdvReac Nausea Verified 05/03/24 09:57 Family History Other Hypertension Surgical History Stented coronary artery (09/01/22) History of coronary artery stent placement (~08/24/20) Social History Smoking Status: Never smoker alcohol intake: never substance use type: does not use caffeine: No ROS Constitutional Constitutional: Reports fatigue; Denies anorexia, change in weight, chills, fever(s), malaise, night sweats, weakness or other Eyes Eyes: Denies blurry vision, change in eye color, change in vision, discharge from eye(s), double vision, erythema, eye pain, loss of vision or other ENT HEENT: Denies abnormal hearing, dysphagia, ear pain, epistaxis, headache(s), hearing loss, nasal congestion, nasal discharge, post nasal drip, sinus pressure, sore throat or other Cardiovascular Cardiovascular: Reports edema; Denies chest pain, claudication, dyspnea on exertion, lightheadedness, orthopnea, palpitations, paroxysmal nocturnal dyspnea, rapid heart rate, syncope or other Respiratory/Chest Respiratory/Chest: Denies cough, dyspnea, excessive phlegm production, hemoptysis, productive cough, shortness of breath at rest, shortness of breath with exertion, wheezing or other Gastrointestinal Gastrointestinal: Denies abdominal pain, coffee ground emesis, constipation, diarrhea, dyspepsia, hematemesis, hematochezia, loose stools, melena, nausea, vomiting or other Genitourinary Genitourinary: Denies burning urination, difficulty urinating, dysuria, hematuria, nocturia, urinary frequency, urinary hesitancy, urinary incontinence, urinary urgency or other Musculoskeletal Musculoskeletal: Denies arthralgias, back pain, joint pain, joint stiffness, joint swelling, myalgias, neck pain or other Neurologic Neurologic: Denies abnormal gait, abnormal speech, confusion, disequilibrium, dizziness, focal weakness, headache(s), numbness, paresthesias, seizure-like activity, seizures, syncope, tingling, tremor(s) or other Psychiatric Psychiatric: Denies anxiety, depression, homicidal ideation, suicidal ideation or other Endocrine Endocrinology: Denies change in body appearance, cold intolerance, excessive sweating, heat intolerance, polydipsia, polyuria or other Hematologic/Lymphatic Hematologic/Lymphatic: Denies anemia, easy bleeding, easy bruising, lymphadenopathy or other Allergic/Immunologic Allergic/Immunologic: Denies rhinitis, hives, eczemia, asthma or other Vital Signs Vital Signs Vital Signs: 05/03/24 09:56 05/03/24 10:33 05/03/24 11:29 Temperature 98 F Temperature Source Temporal Pulse Rate 95 Respiratory Rate 149 H Respiratory Effort Normal Respiratory Pattern Normal Blood Pressure 153/91 H Blood Pressure Mean 111 Pulse Ox 95 Oxygen Delivery Method Room Air Room Air 05/03/24 11:56 05/03/24 13:00 Temperature Temperature Source Pulse Rate 94 99 Respiratory Rate 17 18 Respiratory Effort Respiratory Pattern Blood Pressure 167/101 H 155/101 H Blood Pressure Mean 123 119 Pulse Ox 98 98 Oxygen Delivery Method Room Air Room Air Weight Weight: 70.8 kg Body Mass Index (BMI) 24.4 Physical Exam Const alert, oriented x3, no apparent distress, average body habitus and well nourished Constitutional Narrative: Very pleasant, middle-aged, -[place]alese female, sitting up in bed, watching television and ordering dinner General Appearance: cooperative HEENT normocephalic, head/scalp atraumatic, hearing grossly normal bilaterally and moist oral mucous membranes HEENT Narrative: Mallampati 2, no thrush Eyes EOMs intact bilaterally Eyes Narrative: Markedly pale conjunctiva bilaterally, no scleral icterus Neck supple Neck Narrative: Trachea midline, no thyroid enlargement Resp normal respiratory effort, no retractions, no use of accessory muscles and clear to auscultation bilaterally Auscultation: Negative for rales, rhonchi or wheezes Cardio regular rate, regular rhythm, S1 normal heart sound, S2 normal heart sound, no murmurs, no rub, no gallops and no clicks GI normal to inspection, nondistended, normoactive bowel sounds, soft to palpation and non-tender Extremity Extremity Narrative: Trace bilateral lower extremity edema, no cyanosis or clubbing Neuro oriented x3, moves all extremities and no focal motor deficits Speech: speech normal Psych affect normal Psych Narrative: Very pleasant, interacts appropriately Results Lab / Micro Data 05/03/24 18:05 05/03/24 10:10 Labs: Laboratory Results - last 24 hr 05/03/24 10:10: WBC 3.9 L, RBC 3.94 L, Hgb 6.7 L, Hct 24.5 L, MCV 62.2 L, MCH 17.0 L, MCHC 27.3 L, RDW Std Deviation 46.2 H, RDW Coeff of Rachael 21.4 H, Plt Count 603 H, MPV 9.7, Immature Gran % (Auto) 0.300, Neut % (Auto) 70.6 H, Lymph % (Auto) 16.2 L, [place] % (Auto) 10.3 H, Eos % (Auto) 2.1, Baso % (Auto) 0.5, Absolute Neuts (auto) 2.8, Absolute Lymphs (auto) 0.63 L, Nucleated RBC % 0, Hypochromasia 2+, Anisocytosis 2+, Ovalocytes 1+, Sodium 130 L, Potassium 3.9, C hloride 96 L, Carbon Dioxide 26.0, Anion Gap 9, BUN 22 H, Creatinine 1.01, Estim Creat Clear Calc 63.36, Est GFR (MDRD) Af Amer 74, Est GFR (MDRD) Non-Af 61, B UN/Creatinine Ratio 21.8 H, Glucose 560 H*, Calcium 8.9, Total Bilirubin 0.40, AST 29, ALT 45, Alkaline Phosphatase 113, Troponin I High Sens 41, Total Protein 6.8, Albumin 2.6 L, Globulin 4.2, Albumin/Globulin Ratio 0.6 L Rhythm Strip Rhythm Strip: Sinus Rhythm Rate: 92 Ectopy: None Imaging Radiology Impression Chest X-Ray 05/03/24 11:29 IMPRESSION: Mild cardiomegaly. The lungs are clear. Electronically Signed: Aris Lugo MD at 12:15 EST , Assessment & Plan Assessment/Plan (1) Acute anemia: (2) Thrombocytosis: (3) Hyponatremia: (4) Hyperglycemia: PLAN: Plan Severe iron deficiency anemia -Suspected GI loss -Patient without any significant heavy vaginal bleeding but she states she still does have periods on a fairly regular basis however they are becoming more regular -Patient reports she had a colonoscopy about 2 years ago that she states was unremarkable -Suspect this has been a slow drop in hemoglobin over time given her relative asymptomatic state -Patient declines transfusions due to hinduism-Nondenominational -Will give IV iron 200 mg daily x 3 days -Will need to discharge on oral iron -Hold aspirin and Brilinta--> most recent stent per patient was placed in 2022 which is greater than 1 year time so risk for in-stent thrombosis as well -GI consultation for assistance with workup Thrombocytosis -Secondary to iron deficiency -Unable to transfuse -Supplemental IV iron given -Oral iron at discharge DM-2 with severe hyperglycemia -Patient has not been compliant with her home medications -She reports there is significant cost issues -Will start basal insulin at 40 units at at bedtime -10 units 3 times daily with meals -SSI before meals and at bedtime -Accu-Cheks as ordered -Cardiac/carb controlled diet -Check hemoglobin A1c -Case management/social work consultation for assistance with medication assistance for discharge CAD/essential hypertension/hyperlipidemia -Hold ticagrelor/aspirin due to the above -Start atorvastatin 40 mg -Continue lisinopril -Add as needed hydralazine -If blood pressure remains markedly elevated will need to uptitrate lisinopril and or add further medication to improve blood pressure control -Echocardiogram from 08/2022 showed a normal EF with moderate concentric LVH and left ventricular systolic dysfunction that was hyperdynamic demonstrating an LVOT dynamic gradient of 70 m/s and focal calcification of the noncoronary cusp with aortic valve DVT prophylaxis -Chemoprophylaxis contraindicated due to severe anemia and suspected GI bleed -SCDs CODE STATUS -Full code as verified on admission Charges/Coding Visit Charges Inpatient E&M: 24524 Init Hosp L2
--- NOTE | 2024-05-03 15:01 | CASEMGMT ---
Care Management Face to Face with patient for initial transition planning/care coordination assessment in the ED. This feature writer introduced self and role at [facility]. Patient lying in bed, alert and oriented. Patient's sister, Serena, bedside. Patient gave permission to speak with patient's sister present. Patient willing to participate in assessment and is able to answer all questions appropriately. Admitting Diagnosis: Acute anemia, Thrombocytosis, Hyponatremia, Hyperglycemia Other diagnosis history: Hypertension, history of CAD PCP: Dr. 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 Living Will/HPOA: patient states doing these documents in the past, though cannot recall who is listed. Patient stated a desire to possibly update the documents during admission. LNOK: 3 children, all local to [place] Living Arrangements: 2 story home with 4 steps to enter; full flight of stairs to get to bathroom and bedroom upstairs; independent with all ADLs prior to admission. Transportation: patient drives. 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 SNF/Rehab: none Community Resources: none Patient goals: Patient wishes to discharge home and denies need for SNF or HHC at this time. Patient states she has no further needs or concerns. Disposition Plan: admission to acute; RN CM/SW to follow for discharge planning needs that may arise. Maliha Condno, HAND CLIPPER, PAPER INSERTER
[2024-05-03 15:16] LABS: Platelet Count 623 K/mm3 (150-450); RET-HE 16.5 pg (30-35); Reticulocyte Count 1.66 % (0.5-1.5)
[2024-05-03 15:18] LABS: Immature Platelet Fraction 2.9 % (1.0-7.9)
[2024-05-03 15:20] LABS: Ferritin 5 ng/mL (8-252); Iron 16 ug/dL (50-170); Iron Binding Capacity,Total 474 ug/dL (250-450); PERCENT IRON SATURATION 3.4 % (15.0-55.0)
[2024-05-03 17:48] LABS: Bedside Glucose 336 mg/dL (74-106)
[2024-05-03] MEDS: Insulin Lispro 100 UNIT/ML INSULN.PEN SC ×2 (18:12→21:39)
[2024-05-03] MEDS: FLU VACC 2024-25(6MOS UP)/PF 45 MCG/0.5 ML SYRINGE IM (18:13)
[2024-05-03] MEDS: Insulin Lispro 100 UNIT/ML INSULN.PEN 10 UNIT SC (18:13)
[2024-05-03 18:18] LABS: Hematocrit 25.3 % (37-47); Hemoglobin 6.9 g/dL (12.0-15.0)
--- NOTE | 2024-05-03 21:00 | EX.PCM.CON.G ---
HPI Consult Data Date of Consult: 05/03/24 HPI Narrative Reason for Consultation: Anemia HPI Narrative: JYOTI GUZMAN, is a 54 F who presented to the emergency department at [facility] on 05/03/2024 at the instruction of her primary care physician at the [facility] for abnormal hemoglobin. The patient was seen in her primary care office last week and had bilateral lower extremity edema. She had been noncompliant with her home medications including insulin, blood pressure medication and and antiplatelet therapy after stent placement and her medications were reinstituted. Lab work was obtained and she was called today letting her know that she had abnormal hemoglobin and instructed her to come to the emergency department. She states she has been asymptomatic. She feels that her leg swelling is better. She stated she had an admission in September for heart failure however does not look she came to this hospital. Our last echocardiogram showed normal EF. She does have a known history of coronary disease for which stent was placed in the LAD in 2022. She has had previous stents done elsewhere. Vital signs on presentation showed a temperature of 98, heart rate 95, respiratory rate was 16, blood pressure was 153/91 and pulse ox was 95% on room air. CBC was markedly abnormal with a leukopenia, severe anemia with a hemoglobin of 6.7, and thrombocytosis with a platelet count of 603,000. Her last hemoglobin here was in August 2022 and was 11.3. Chemistry panel showed mild hyponatremia with a sodium of 130, normal renal function, serum glucose of 560. I obtain iron studies and she was found to be markedly iron deficient with a total iron of 16, iron saturation of 3.4, ferritin of 5 and an elevated TIBC at 474. Liver function was normal. Chest x-ray showed mild cardiomegaly unremarkable lung randolph. She did admit to being Religion and declined blood transfusion. She was amenable to workup and iron replacement via IV but no blood products. [facility] Medical History Hypertension Chest pain Hyperglycemia Essential hypertension Atherosclerotic heart disease of [place] coronary artery without angina pectoris History of CAD (coronary artery disease) Myocardial infarct Type 2 diabetes mellitus Home Medications ?Medication ?Instructions ?Recorded ?Last Taken ?Type acetaminophen 325 mg tablet 650 mg (2 x 325 mg) PO Q6H PRN PRN 09/02/22 Unknown Rx Pain 1-10 Or Fever >100.7 #0 tabs aspirin 81 mg tablet,delayed 81 mg PO BREAKFAST #0 tabs 09/02/22 Unknown Rx release pen needle, diabetic 29 gauge x #100 ea 09/02/22 Unknown Rx 1/2 lisinopril 10 mg tablet 10 mg PO DAILY #90 tabs 10/11/22 Unknown Rx ticagrelor 90 mg tablet (Brilinta) 90 mg PO BID #60 tabs 02/02/24 Unknown Rx Allergy/AdvReac Type Severity Reaction Status Date / Time latex Allergy Rash Verified 05/03/24 09:57 morphine AdvReac Nausea Verified 05/03/24 09:57 Family History Other Hypertension Surgical History Stented coronary artery (09/01/22) History of coronary artery stent placement (~08/24/20) Social History Smoking Status: Never smoker alcohol intake: never substance use type: does not use caffeine: No ROS Constitutional Constitutional: Reports fatigue; Denies anorexia, change in weight, chills, fever(s), malaise, night sweats, weakness or other Eyes Eyes: Denies blurry vision, change in eye color, change in vision, discharge from eye(s), double vision, erythema, eye pain, loss of vision or other ENT HEENT: Denies abnormal hearing, dysphagia, ear pain, epistaxis, headache(s), hearing loss, nasal congestion, nasal discharge, post nasal drip, sinus pressure, sore throat or other Cardiovascular Cardiovascular: Reports edema; Denies chest pain, claudication, dyspnea on exertion, lightheadedness, orthopnea, palpitations, paroxysmal nocturnal dyspnea, rapid heart rate, syncope or other Respiratory/Chest Respiratory/Chest: Denies cough, dyspnea, excessive phlegm production, hemoptysis, productive cough, shortness of breath at rest, shortness of breath with exertion, wheezing or other Gastrointestinal Gastrointestinal: Denies abdominal pain, coffee ground emesis, constipation, diarrhea, dyspepsia, hematemesis, hematochezia, loose stools, melena, nausea, vomiting or other Genitourinary Genitourinary: Denies burning urination, difficulty urinating, dysuria, hematuria, nocturia, urinary frequency, urinary hesitancy, urinary incontinence, urinary urgency or other Musculoskeletal Musculoskeletal: Denies arthralgias, back pain, joint pain, joint stiffness, joint swelling, myalgias, neck pain or other Neurologic Neurologic: Denies abnormal gait, abnormal speech, confusion, disequilibrium, dizziness, focal weakness, headache(s), numbness, paresthesias, seizure-like activity, seizures, syncope, tingling, tremor(s) or other Psychiatric Psychiatric: Denies anxiety, depression, homicidal ideation, suicidal ideation or other Endocrine Endocrinology: Denies change in body appearance, cold intolerance, excessive sweating, heat intolerance, polydipsia, polyuria or other Hematologic/Lymphatic Hematologic/Lymphatic: Denies anemia, easy bleeding, easy bruising, lymphadenopathy or other Allergic/Immunologic Allergic/Immunologic: Denies rhinitis, hives, eczemia, asthma or other Physical Exam Const alert, oriented x3, no apparent distress and healthy appearing General Appearance: cooperative GI normal to inspection, nondistended, normoactive bowel sounds, soft to palpation, non-tender and non-distended Percussion: normal to percussion Rectal Exam: deferred Lab / Micro Data 05/04/24 05:08 05/04/24 05:08 Labs: Laboratory Results - last 24 hr 05/03/24 10:10: WBC 3.9 L, RBC 3.94 L, Hgb 6.7 L, Hct 24.5 L, MCV 62.2 L, MCH 17.0 L, MCHC 27.3 L, RDW Std Deviation 46.2 H, RDW Coeff of Rachael 21.4 H, Plt Count 603 H, MPV 9.7, Immature Gran % (Auto) 0.300, Neut % (Auto) 70.6 H, Lymph % (Auto) 16.2 L, [place] % (Auto) 10.3 H, Eos % (Auto) 2.1, Baso % (Auto) 0.5, Absolute Neuts (auto) 2.8, Absolute Lymphs (auto) 0.63 L, Nucleated RBC % 0, Immature Plt Fraction 2.9, Hypochromasia 2+, Anisocytosis 2+, Ovalocytes 1+, Retic Count 1.66 H, Immature Retic Fraction 21.60 H, Retic Hgb Equivalent 16.5 L, Sodium 130 L, Potassium 3.9, Chloride 96 L, Carbon Dioxide 26.0, Anion Gap 9, BUN 22 H, Creatinine 1.01, Estim Creat Clear Calc 63.36, Est GFR (MDRD) Af Amer 74, Est GFR (MDRD) Non-Af 61, BUN/Creatinine Ratio 21.8 H, Glucose 560 H*, Calcium 8.9, Iron 16 L, TIBC 474 H, Iron Saturation 3.4 L, Ferritin 5 L, Total Bilirubin 0.40, AST 29, ALT 45, Alkaline Phosphatase 113, Troponin I High Sens 41, Total Protein 6.8, Albumin 2.6 L, Globulin 4.2, Albumin/Globulin Ratio 0.6 L 05/03/24 14:43: Blood Type AB POSITIVE, Antibody Screen NEGATIVE, Crossmatch See Detail 05/03/24 14:43: Crossmatch See Detail 05/03/24 17:30: POC Glucose 336 H 05/03/24 18:05: Hgb 6.9 L, Hct 25.3 L 05/03/24 21:35: POC Glucose 385 H 05/03/24 23:10: Urine Test Negative 05/04/24 05:08: WBC 4.0 L, RBC 3.46 L, Hgb 5.8 L*, Hct 21.1 L, MCV 61.0 L, MCH 16.8 L, MCHC 27.5 L, RDW Std Deviation 45.0 H, RDW Coeff of Rachael 21.2 H, Plt Count 498 H, MPV 9.2, Immature Gran % (Auto) 0.000, Neut % (Auto) 62.1, Lymph % (Auto) 23.0, [place] % (Auto) 10.4 H, Eos % (Auto) 4.0, Baso % (Auto) 0.5, Absolute Neuts (auto) 2.5, Absolute Lymphs (auto) 0.93, Nucleated RBC % 0, Differential Comment SCANNED, Polychromasia RARE, Hypochromasia 2+, Anisocytosis 3+, Microcytosis 1+, Macrocytosis 1+, Tear Drop Cells RARE, Ovalocytes 2+, Stomatocytes RARE, PT 14.2, INR 1.1, Sodium 129 L, Potassium 3.8, Chloride 100, Carbon Dioxide 25.0, Anion Gap 5, BUN 19 H, Creatinine 1.02, Estim Creat Clear Calc 62.74, Est GFR (MDRD) Af Amer 73, Est GFR (MDRD) Non-Af 61, BUN/Creatinine Ratio 18.6, Glucose 302 H, Calcium 8.1 L, Total Bilirubin 0.20, AST 18, ALT 34, Alkaline Phosphatase 82, Total Protein 5.5 L, Albumin 2.0 L, Globulin 3.5, Albumin/Globulin Ratio 0.6 L Rhythm Strip Rhythm Strip: Sinus Rhythm Rate: 92 Ectopy: None Imaging Radiology Impression Chest X-Ray 05/03/24 11:29 IMPRESSION: Mild cardiomegaly. The lungs are clear. Electronically Signed: Aris Lugo MD at 12:15 EST , Assessment & Plan Assessment/Plan (1) Acute anemia: (2) Thrombocytosis: (3) Hyponatremia: (4) Hyperglycemia: PLAN: Plan 54-year-old with history of CAD status post PTCA with stents with severe iron deficiency anemia -Suspected GI loss. Patient will undergo an upper endoscopy to evaluate upper GI tract with push enteroscopy. If this is negative then she will need to undergo colonoscopy. -Patient reports she had a colonoscopy about 2 years ago that she states was unremarkable -Suspect this has been a slow drop in hemoglobin over time given her relative asymptomatic state -Patient declines transfusions due to jewish-Religion -Agree with IV iron 200 mg daily x 3 days -Also recommending : Epoegen 40,000 units IV or subcutaneous daily, , then change dosing to 40,000 units weekly Iron: 200 mg iron sucrose intravenous daily for 10 days minimum and then consider conversion to oral iron supplemental on Vitamin C: 500 mg TID, except in renal failure (qD) Folate: 1 mg PO or IV qD Vitamin B12: consider IV vs. oral supplemental Charges/Coding Visit Charges Inpatient E&M: 40444 Init Hosp L3
[2024-05-03] MEDS: Pantoprazole Sodium 40 MG in 0.9% Normal Saline (100mL MB+) 100 ML 330 MG IV (21:38)
[2024-05-03] MEDS: 0.9% Saline Lock 10 ML Syringe IV (21:38)
[2024-05-03] MEDS: Insulin Glargine-YFGN 100 UNIT/ML Pen 40 UNIT SC (21:39)
[2024-05-03] MEDS: Sodium Ferric Gluconat 250 MG in 0.9% Normal Saline 250 ML 135 MG IV (22:38)
[2024-05-03 23:24] LABS: Bedside Glucose 385 mg/dL (74-106)
[2024-05-03 23:35] LABS: Internal QC Validated? YES +Cl - CLEAR BKGD; Pregnancy, Urine Negative Negative
[2024-05-04] VITALS (13 sets, daily range): BP systolic 107–132; BP diastolic 71–88; PULSE 95–101; RESP 16; TEMP 36.4–37.3; O2SAT 96–100; BMI 24.4
[2024-05-04 05:24] LABS: Absolute Lymphocyte Count 0.93 X10^3/uL (0.83-4.51); Absolute Neutrophil Count 2.5 X10^3/uL (2.0-7.7); Basophil# 0.02 X10^3/uL; Basophil% 0.5 % (0-1); Eosinophil# 0.16 X10^3/uL; Hematocrit 21.1 % (37-47); Lymphocyte # 0.93 X10^3/ul (0.83-4.51); Mean Corp Hgb Conc 27.5 g/dL (32-36); Mean Corpuscular Hgb 16.8 pg (27.0-32.0); Mean Platelet Vol. 9.2 fl (6.2-12.0); Monocyte# 0.42 X10^3/uL; Monocyte% 10.4 % (0-10); NRBC Flagged by Analyzer 0 % (0-5); Neutrophil # 2.51 X10^3/uL (2.7-7.7); Neutrophil % 62.1 % (47-70); POSITIVE COUNT YES; POSITIVE MORPHOLOGY YES; Platelet Count 498 K/mm3 (150-450); RBC Distribution Width CV 21.2 % (11.6-14.6); Red Blood Count 3.46 M/mm3 (4.2-5.4)
[2024-05-04 05:38] LABS: Differential Indicated SCAN CRITERIA MET; Hemoglobin 5.8 g/dL (12.0-15.0)
[2024-05-04 05:40] LABS: International Normalized Ratio 1.1; Prothrombin Time (Protime)PT. 14.2 SECONDS (11.7-14.9)
[2024-05-04 05:52] LABS: ALB/GLOB Ratio 0.6 RATIO (0.9-2.4); AST(SGOT) 18 U/L (15-37); Alanine Aminotransfer ALT/SGPT 34 U/L (13-56); Alkaline Phosphatase 82 U/L (45-117); Anion Gap 5 (5-15); BUN 19 mg/dL (7-18); BUN/Creat Ratio 18.6 RATIO (10-20); Calcium,Total 8.1 mg/dL (8.5-10.1); Chloride 100 mmol/L (98-107); Creatinine, Serum 1.02 mg/dL (0.55-1.02); EST Glomerular Filtration Rate 61 mL/min (>60); Est Glom Filt Rate - Afr Amer 73 mL/min (>60); Estimated Creatinine Clearance 62.74 ml/min; Globulin 3.5 g/dL (2.2-4.2); Glucose 302 mg/dL (74-106); Potassium 3.8 mmol/L (3.5-5.1); Protein, Total 5.5 g/dL (6.4-8.2); Sodium Level 129 mmol/L (136-145)
[2024-05-04 06:18] LABS: Anisocytosis 3+; Differential Comment SCANNED
[2024-05-04 06:19] LABS: Polychromasia RARE
[2024-05-04 06:20] LABS: Hypochromasia 2+; Macrocytosis 1+
[2024-05-04 06:21] LABS: Microcytosis 1+; Ovalocyte 2+; Stomatocyte RARE
[2024-05-04 06:22] LABS: Tear Drop Cell RARE
[2024-05-04] MEDS: Insulin Lispro 100 UNIT/ML INSULN.PEN SC (07:14)
[2024-05-04] MEDS: 0.9% Saline Lock 10 ML Syringe IV ×2 (08:12→14:25)
[2024-05-04] MEDS: Pantoprazole Sodium 40 MG in 0.9% Normal Saline (100mL MB+) 100 ML 330 MG IV ×2 (08:13→20:52)
--- NOTE | 2024-05-04 09:42 | PCM.PRE.AN2 ---
ASA Classification* ASA Classification ASA Classification: 3 Assessment & Plan Anesthesia* Anesthesia Assessment Anesthesia Assessment: Discussed sedation and/or anesthesia options, risks, benefits, and alternatives with patient/parents/legal guardian/POA. Questions invited. The patient/parents/legal guardian/POA seems to understand and agrees to proceed with anesthesia plan. Reviewed the physical assessment, medical history, allergy history and patient home medications list prior to surgery/procedure/anesthetic and documented any changes. Performed airway and anesthesia risk assessments. Anesthesia Type Anesthesia Type: MAC History Source History Obtained from:: Patient and Chart Anesthesia Focused Assessment* Temperature: 98.4 F Pulse Rate: 98 Blood Pressure: 127/83 Respiratory Rate: 16 Pulse Ox: 99 Oxygen Delivery Method: Room Air Airway Assessment Mouth opens: >3 cm Mallampati Score: III Teeth Condition: Chipped/Broken (Chipped and broken right upper molar) and Missing (Patient is missing a teeth. Rest of the teeth are tight.) Neck Range of motion (ROM): Full ROM Focused Labs Anesthesia Preop lab: CBC WBC 4.0 K/mm3 (4.4-11.0) L 05/04/24 05:08 RBC 3.46 M/mm3 (4.2-5.4) L 05/04/24 05:08 Hgb 5.8 g/dL (12.0-15.0) L* 05/04/24 05:08 Hct 21.1 % (37-47) L 05/04/24 05:08 Plt Count 498 K/mm3 (150-450) H 05/04/24 05:08 CHEMISTRY Potassium 3.8 mmol/L (3.5-5.1) 05/04/24 05:08 Sodium 129 mmol/L (136-145) L 05/04/24 05:08 BUN 19 mg/dL (7-18) H 05/04/24 05:08 Creatinine 1.02 mg/dL (0.55-1.02) 05/04/24 05:08 Glucose 302 mg/dL (74-106) H 05/04/24 05:08 POC Glucose 385 mg/dL (74-106) H 05/03/24 21:35 COAG PT 14.2 SECONDS (11.7-14.9) 05/04/24 05:08 Urine Test Negative Negative 05/03/24 23:10 Pre-Assessment Diagnosis/Proposed Procedure Planned Operative Procedure(s): Esophagogastroduodenoscopy Anesthesia History Anesthesia 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 When Was Last Pacemaker Check QUESTION #4 FULL TEXT: You/Your Family Experience fever (hyperthermia) with Anesthesia Last Oral Intake Last Oral intake: Last Oral Intake NPO since 00:00 05/04/24 08:22 Meds taken in AM with sips of No 05/03/24 22:50 water? Meds patient instructed to take am of surgery PONV PONV - correctional probation officer: PONV - correctional probation officer Female HX of Motion Sickness HX of N/V After Surgery Non-Smoker Duration of Surgery greater than 60 minutes Number of Risk Factors PONV Score Height & Weight Height & Weight: Anesthesia: Height & Weight Height 5 ft 7 in 05/04/24 08:22 Weight: 70.76 kg 05/04/24 08:22 Body Mass Index (BMI) 24.4 05/04/24 08:22 Respiratory Assessment Respiratory Assessment - correctional probation officer: Respiratory Tract Infection Hx - correctional probation officer Hx Respiratory Tract Infection No 05/03/24 22:50 STOP Sleep Apnea STOP Sleep Apnea - correctional probation officer: STOP Sleep Apnea - correctional probation officer Hx Hypertension Yes 05/03/24 17:09 Hx Sleep Apnea No 05/03/24 17:09 CPAP BIPAP Do you snore loudly (louder No 05/03/24 17:09 than talking or can be heard Do you often feel tired/ No 05/03/24 17:09 fatigued/ sleepy during daytime? Has anyone observed you stop No 05/03/24 17:09 breathing during sleep? STOP Results Negative 05/03/24 17:09 QUESTION #5 FULL TEXT : Do you snore loudly (louder than talking or can be heard through closed doors)? 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 Specify any problems Hx of Preganancy in last 3 No 05/03/24 17:09 Months Nurse Filling Out Transfusion TWOLF 05/03/24 17:09 & Questions: Date: 05/03/24 05/03/24 17:09 Time: 17:10 05/03/24 17:09 Patient unable to answer at this time (ie. confused, unrespo /Reproduction History /Reproductive History - correctional probation officer: /Reproductive Hx- correctional probation officer Hx Now No 05/03/24 22:50 Gestational Age (in weeks): EDC: Hx Hx Para Hx Section SAB No 05/03/24 22:50 Active Medications Active Medications: Current Medications Generic Name Dose Route Start Last Admin Trade Name Freq PRN Reason Stop Dose Admin Acetaminophen 650 mg 05/03/24 16:55 Acetaminophen 325 Mg Tablet PO Q6H PRN PRN Pain 1-10 Or Fever>100.7 Albuterol Sulfate 2.5 mg 05/03/24 16:55 Albuterol 2.5 Mg/3 Ml Vial.Neb. INHALATION Q2H PRN PRN SOB &/OR WHEEZING Glucagon 1 mg 05/03/24 16:55 Glucagon 1 Mg/Ml Syringe IM X1 PRN HYPOGLYCEMIA Protocol Hydralazine HCl 10 mg 05/03/24 21:35 Hydralazine 20 Mg/Ml Vial IV Q6H PRN PRN SBP>150 Protocol Pantoprazole Sodium 40 mg/ 110 mls @ 330 mls/hr 05/03/24 22:00 05/04/24 08:13 Sodium Chloride IV 330 mls/hr Q12 JOLYNN Administration Dextrose 250 mls @ 0 mls/hr 05/03/24 16:55 Dextrose 10%-Water IV .Q0M PRN HYPOGLYCEMIA Protocol As Directed Sodium Chloride 100 mls @ 15 mls/hr 05/03/24 17:15 IV .Q6H40M PRN Saline Flush Sodium Chloride 100 mls @ 15 mls/hr 05/03/24 17:15 IV .Q6H40M PRN Additional IVPB Infusion Ferric Sodium Gluconate 270 mls @ 135 mls/hr 05/04/24 11:00 Complex 250 mg/ Sodium IV 05/06/24 12:59 Chloride DAILY@1100 [facility] Insulin Glargine 40 unit 05/03/24 22:00 05/03/24 21:39 Insulin Glargine-Yfgn 100 Unit/Ml Pen SC 40 unit QHS [facility] Administration Protocol Insulin Human Lispro 0 unit 05/03/24 16:55 05/04/24 07:14 Insulin Lispro 100 Unit/Ml Insuln.Pen SC 2 u ACHS [facility] Administration Protocol Insulin Human Lispro 10 unit 05/03/24 16:55 05/04/24 08:11 Insulin Lispro 100 Unit/Ml Insuln.Pen SC Not Given TIDCM [facility] Lisinopril 40 mg 05/04/24 10:00 Lisinopril 40 Mg Tablet PO DAILY [facility] Protocol Melatonin 3 mg 05/03/24 16:55 Melatonin 3 Mg Tablet PO QHS PRN PRN INSOMNIA Ondansetron HCl 4 mg 05/03/24 16:55 Ondansetron 4 Mg/2 Ml Vial IV Q8H PRN PRN NAUSEA/VOMITING Senna/Docusate Sodium 2 tablet 05/03/24 16:55 Senna/Docusate Sodium 1 Tablet PO BID PRN PRN Constipation Sodium Chloride 10 - 40 ml 05/03/24 17:15 05/04/24 08:12 0.9% Saline Lock 10 Ml Syringe IV 10 ml UD PRN Administration SALINE FLUSH PFSH Medical History Hypertension Chest pain Hyperglycemia Essential hypertension Atherosclerotic heart disease of [place] coronary artery without angina pectoris History of CAD (coronary artery disease) Myocardial infarct Type 2 diabetes mellitus Home Medications ?Medication ?Instructions ?Recorded ?Last Taken ?Type acetaminophen 325 mg tablet 650 mg (2 x 325 mg) PO Q6H PRN PRN 09/02/22 Unknown Rx Pain 1-10 Or Fever >100.7 #0 tabs aspirin 81 mg tablet,delayed 81 mg PO BREAKFAST #0 tabs 09/02/22 Unknown Rx release pen needle, diabetic 29 gauge x #100 ea 09/02/22 Unknown Rx 1/2 lisinopril 10 mg tablet 10 mg PO DAILY #90 tabs 10/11/22 Unknown Rx ticagrelor 90 mg tablet (Brilinta) 90 mg PO BID #60 tabs 02/02/24 Unknown Rx Allergy/AdvReac Type Severity Reaction Status Date / Time latex Allergy Rash Verified 05/03/24 09:57 morphine AdvReac Nausea Verified 05/03/24 09:57 Family History Other Hypertension Surgical History Stented coronary artery (09/01/22) History of coronary artery stent placement (~08/24/20) Social History Smoking Status: Never smoker alcohol intake: never substance use type: does not use caffeine: No Review of Systems (Anesthesia) ROS Narrative System reviewed and no additional complaints, except as documented.
[2024-05-04 09:47] LABS: Bedside Glucose 90 mg/dL (74-106)
--- NOTE | 2024-05-04 10:01 | PN.HOSP_ITS ---
Subjective Subjective Doing well, hemoglobin continues to drop 5.8. No transfusion since she is a [employer] Objective Data Objective Data Vital Signs: Vital Signs Temp Pulse Resp BP Pulse Ox O2 Del Method 98.4 F 98 16 127/83 H 99 Room Air 05/04/24 09:48 05/04/24 09:48 05/04/24 09:48 05/04/24 09:48 05/04/24 09:48 05/04/24 09:48 Oxygen Delivery Method Room Air Weight: 156 lb Body Mass Index (BMI) 24.4 Intake & Output: Intake and Output for Last 24 Hours 05/03/24 05/04/24 05/05/24 03:59 03:59 03:59 Intake Total 380 / 380 Balance 380 / 380 Lab / Micro Data 05/04/24 05:08 05/04/24 05:08 Labs: Laboratory Results - last 24 hr 05/03/24 10:10: WBC 3.9 L, RBC 3.94 L, Hgb 6.7 L, Hct 24.5 L, MCV 62.2 L, MCH 17.0 L, MCHC 27.3 L, RDW Std Deviation 46.2 H, RDW Coeff of Rachael 21.4 H, Plt Count 603 H, MPV 9.7, Immature Gran % (Auto) 0.300, Neut % (Auto) 70.6 H, Lymph % (Auto) 16.2 L, Quay % (Auto) 10.3 H, Eos % (Auto) 2.1, Baso % (Auto) 0.5, Absolute Neuts (auto) 2.8, Absolute Lymphs (auto) 0.63 L, Nucleated RBC % 0, Immature Plt Fraction 2.9, Hypochromasia 2+, Anisocytosis 2+, Ovalocytes 1+, R etic Count 1.66 H, Immature Retic Fraction 21.60 H, Retic Hgb Equivalent 16.5 L, Sodium 130 L, Potassium 3.9, Chloride 96 L, Carbon Dioxide 26.0, Anion Gap 9, B UN 22 H, Creatinine 1.01, Estim Creat Clear Calc 63.36, Est GFR (MDRD) Af Amer 74, Est GFR (MDRD) Non-Af 61, BUN/Creatinine Ratio 21.8 H, Glucose 560 H*, Calcium 8.9, Iron 16 L, TIBC 474 H, Iron Saturation 3.4 L, Ferritin 5 L, Total Bilirubin 0.40, AST 29, ALT 45, Alkaline Phosphatase 113, Troponin I High Sens 41, Total Protein 6.8, Albumin 2.6 L, Globulin 4.2, Albumin/Globulin Ratio 0.6 L 05/03/24 14:43: Blood Type AB POSITIVE, Antibody Screen NEGATIVE, Crossmatch See Detail 05/03/24 14:43: Crossmatch See Detail 05/03/24 17:30: POC Glucose 336 H 05/03/24 18:05: Hgb 6.9 L, Hct 25.3 L 05/03/24 21:35: POC Glucose 385 H 05/03/24 23:10: Urine Test Negative 05/04/24 05:08: WBC 4.0 L, RBC 3.46 L, Hgb 5.8 L*, Hct 21.1 L, MCV 61.0 L, MCH 16.8 L, MCHC 27.5 L, RDW Std Deviation 45.0 H, RDW Coeff of Rachael 21.2 H, Plt Count 498 H, MPV 9.2, Immature Gran % (Auto) 0.000, Neut % (Auto) 62.1, Lymph % (Auto) 23.0, Quay % (Auto) 10.4 H, Eos % (Auto) 4.0, Baso % (Auto) 0.5, Absolute Neuts (auto) 2.5, Absolute Lymphs (auto) 0.93, Nucleated RBC % 0, Differential Comment SCANNED, Polychromasia RARE, Hypochromasia 2+, Anisocytosis 3+, Microcytosis 1+, Macrocytosis 1+, Tear Drop Cells RARE, Ovalocytes 2+, Stomatocytes RARE, PT 14.2, INR 1.1, Sodium 129 L, Potassium 3.8, Chloride 100, Carbon Dioxide 25.0, Anion Gap 5, BUN 19 H, Creatinine 1.02, Estim Creat Clear Calc 62.74, Est GFR (MDRD) Af Amer 73, Est GFR (MDRD) Non-Af 61, BUN/Creatinine Ratio 18.6, Glucose 302 H, Hemoglobin A1c Cancelled, Calcium 8.1 L, Total Bilirubin 0.20, AST 18, ALT 34, Alkaline Phosphatase 82, Total Protein 5.5 L, A lbumin 2.0 L, Globulin 3.5, Albumin/Globulin Ratio 0.6 L 05/04/24 09:26: POC Glucose 90 Radiography Diagnostic Testing: Radiology Impression Chest X-Ray 05/03/24 11:29 IMPRESSION: Mild cardiomegaly. The lungs are clear. Electronically Signed: Aris Lugo MD at 12:15 EST , Rhythm Strip Rhythm Strip: Sinus Rhythm Rate: 92 Ectopy: None Physical Exam Narrative General: Alert, Oriented x3, Cooperative, No apparent distress HEENT: Atraumatic, PERRLA, EOMI, Normocephalic Oral: Moist Mucosa Neck: Supple, No JVD Lungs: Diminished, Normal air movement, No rhonchi, No wheeze, No rales Cardiovascular: Tachycardic, Regular Rhythm, Normal S1, Normal S2, No murmurs Abdomen: Soft, Non Tender, Non-Distended, No Hepato-splenomegaly Extremities: No edema, Capillary Refill Less than 3 Seconds Skin: No rashes, No breakdown Musculoskeletal: No Tenderness to Palpation of Joints or Extremities Neurological: No focal neurological deficits, Motor Exam 5/5 strength throughout, Sensory exam intact to light touch and pain Psych/Mental Status: Normal Affect, Appropriate Assessment & Plan Assessment/Plan (1) Acute anemia: (2) Thrombocytosis: (3) Hyponatremia: (4) Hyperglycemia: PLAN: Plan 1. Severe iron deficiency anemia secondary to GI bleed with thrombocytosis ? Unclear is whether this is an upper or lower GI bleed ? Appreciate GI's assistance ? She has not a transfusion given [facility] ? Continue with iron infusions ? Will hold her aspirin and Brilinta, her stents were over a year ago 2. CAD status post stent/essential HTN/HLD ? Continue with her home blood pressure medications ? Continue with her Lipitor ?Echo 523 with a normal EF and moderate concentric left ventricular hypertrophy with an LVOT dynamic gradient of 70 m/s ? Continue to hold aspirin and Brilinta 3. DM2 ? Continue sliding scale insulin ? Will monitor make adjustments as necessary ? Accu-Cheks ACHS DVT: SCDs Charges/Coding Visit Charges Inpatient E&M: 74117 Subs Hosp L2
--- NOTE | 2024-05-04 10:09 | OP.CCLET_ITS ---
05/04/2024 Gerber Pina [address] [place] [address] Re : Upper GI endoscopy procedure for Mariella James Dear Dr. Pina This procedure was performed on Saturday, May 04, 2024. My impressions and recommendations are as follows: Impressions : - Normal esophagus. - Medium-sized hiatal hernia. - Normal examined duodenum. - Normal examined jejunum. - No specimens collected. Recommendations : - [facility]. - Full liquid diet. - Continue present medications. My findings are described in the full procedure note, which is enclosed. If I can be of further assistance, please feel free to contact me at . Sincerely, Rony Milligan, 05/04/2024 10:08:44 AM This report has been signed electronically.
--- NOTE | 2024-05-04 10:09 | OP.EGD_ITS ---
Patient Name: Mariella Ramirez Procedure Date: 05/04/2024 9:13 AM Date of : 1970 Age: 54 Procedure: Upper GI endoscopy Indications: Iron deficiency anemia Providers: Rony Milligan DO Medicines: Monitored Anesthesia Care Patient Profile: This is a 54 year old female. Refer to note in patient chart for documentation of history and physical. Patient has symptoms. Complications: No immediate complications. Procedure: Pre-Anesthesia Assessment: - Prior to the procedure, a History and Physical was performed, and patient medications and allergies were reviewed. The patient is competent. The risks and benefits of the procedure and the sedation options and risks were discussed with the patient. All questions were answered and informed consent was obtained. Patient identification and proposed procedure were verified by the physician in the pre-procedure area. Mental Status Examination: alert and oriented. Airway Examination: normal oropharyngeal airway and neck mobility. Respiratory Examination: clear to auscultation. CV Examination: normal. Prophylactic Antibiotics: The patient does not require prophylactic antibiotics. Prior Anticoagulants: The patient has taken no anticoagulant or antiplatelet agents except for NSAID medication. ASA Grade Assessment: II - A patient with mild systemic disease. After reviewing the risks and benefits, the patient was deemed in satisfactory condition to undergo the procedure. The anesthesia plan was to use monitored anesthesia care (MAC). Immediately prior to administration of medications, the patient was re-assessed for adequacy to receive sedatives. The heart rate, respiratory rate, oxygen saturations, blood pressure, adequacy of pulmonary ventilation, and response to care were monitored throughout the procedure. The physical status of the patient was re-assessed after the procedure. After obtaining informed consent, the endoscope was passed under direct vision. Throughout the procedure, the patient's blood pressure, pulse, and oxygen saturations were monitored continuously. The Colonoscope was introduced through the mouth, and advanced to the jejunum. Small bowel enteroscopy was deemed necessary. The upper GI endoscopy was accomplished without difficulty. The patient tolerated the procedure well. Scope In: 9:57:02 AM Scope Out: 10:01:34 AM Total Procedure Duration Time 0 hours 4 minutes 32 seconds Findings: The examined esophagus was normal. A medium-sized hiatal hernia was present. No other significant abnormalities were identified in a careful examination of the stomach. The examined duodenum was normal. The examined jejunum was normal. Impression: - Normal esophagus. - Medium-sized hiatal hernia. - Normal examined duodenum. - Normal examined jejunum. - No specimens collected. Recommendation: - [facility]. - Full liquid diet. - Continue present medications. Procedure Code(s): --- Professional --- 98628, Small intestinal endoscopy, enteroscopy beyond second portion of duodenum, not including ileum; diagnostic, including collection of specimen(s) by brushing or washing, when performed (separate procedure) CPT copyright 2021 [employer]. All rights reserved. The codes documented in this report are preliminary and upon data coder operator review may be revised to meet current compliance requirements. Rony Milligan DO 05/04/2024 10:08:44 AM This report has been signed electronically. Number of Addenda: 0 Note Initiated On: 05/04/2024 9:13 AM
--- NOTE | 2024-05-04 10:11 | PCM.POST.ANE ---
Anesthesia: Postop Eval I Current Vital Signs Temperature: 99.1 F Pulse Rate: 100 Blood Pressure: 119/77 Respiratory Rate: 16 Pulse Ox: 100 Oxygen Delivery Method: Room Air Assessment Airway patent: Yes Spontaneous unlabored respirations: Yes Mental status: Awake and Calm nausea: No Vomiting: No Anesthesia Complication: No Fluid Hydration Crystalloid volume administer (ml): 5 Total IV fluid infused: 5 Progress Note Anesthesia document: Postop Eval 1 completed: Yes
--- NOTE | 2024-05-04 10:40 | PN.GI_ITS ---
Subjective Subjective Patient underwent push enteroscopy for severe iron deficiency anemia and no source of GI blood loss was seen. She agreed to undergo colonoscopy tomorrow. Objective Data Objective Data Vital Signs: Vital Signs Temp Pulse Resp BP Pulse Ox O2 Del Method 98.8 F 97 16 123/80 H 99 Room Air 05/04/24 10:25 05/04/24 10:25 05/04/24 10:25 05/04/24 10:25 05/04/24 10:05/04/24 10:25 Oxygen Delivery Method Room Air Weight: 156 lb Body Mass Index (BMI) 24.4 Intake & Output: Intake and Output for Last 24 Hours 05/02/24 05/03/24 05/04/24 23:59 23:59 23:59 Intake Total 110 / 110 270 / 270 Balance 110 / 110 270 / 270 Lab / Micro Data 05/04/24 05:08 05/04/24 05:08 Labs: Laboratory Results - last 24 hr 05/03/24 10:10: WBC 3.9 L, RBC 3.94 L, Hgb 6.7 L, Hct 24.5 L, MCV 62.2 L, MCH 17.0 L, MCHC 27.3 L, RDW Std Deviation 46.2 H, RDW Coeff of Rachael 21.4 H, Plt Count 603 H, MPV 9.7, Immature Gran % (Auto) 0.300, Neut % (Auto) 70.6 H, Lymph % (Auto) 16.2 L, Barron % (Auto) 10.3 H, Eos % (Auto) 2.1, Baso % (Auto) 0.5, Absolute Neuts (auto) 2.8, Absolute Lymphs (auto) 0.63 L, Nucleated RBC % 0, Immature Plt Fraction 2.9, Hypochromasia 2+, Anisocytosis 2+, Ovalocytes 1+, R etic Count 1.66 H, Immature Retic Fraction 21.60 H, Retic Hgb Equivalent 16.5 L, Sodium 130 L, Potassium 3.9, Chloride 96 L, Carbon Dioxide 26.0, Anion Gap 9, B UN 22 H, Creatinine 1.01, Estim Creat Clear Calc 63.36, Est GFR (MDRD) Af Amer 74, Est GFR (MDRD) Non-Af 61, BUN/Creatinine Ratio 21.8 H, Glucose 560 H*, Calcium 8.9, Iron 16 L, TIBC 474 H, Iron Saturation 3.4 L, Ferritin 5 L, Total Bilirubin 0.40, AST 29, ALT 45, Alkaline Phosphatase 113, Troponin I High Sens 41, Total Protein 6.8, Albumin 2.6 L, Globulin 4.2, Albumin/Globulin Ratio 0.6 L 05/03/24 14:43: Blood Type AB POSITIVE, Antibody Screen NEGATIVE, Crossmatch See Detail 05/03/24 14:43: Crossmatch See Detail 05/03/24 17:30: POC Glucose 336 H 05/03/24 18:05: Hgb 6.9 L, Hct 25.3 L 05/03/24 21:35: POC Glucose 385 H 05/03/24 23:10: Urine Test Negative 05/04/24 05:08: WBC 4.0 L, RBC 3.46 L, Hgb 5.8 L*, Hct 21.1 L, MCV 61.0 L, MCH 16.8 L, MCHC 27.5 L, RDW Std Deviation 45.0 H, RDW Coeff of Rachael 21.2 H, Plt Count 498 H, MPV 9.2, Immature Gran % (Auto) 0.000, Neut % (Auto) 62.1, Lymph % (Auto) 23.0, Barron % (Auto) 10.4 H, Eos % (Auto) 4.0, Baso % (Auto) 0.5, Absolute Neuts (auto) 2.5, Absolute Lymphs (auto) 0.93, Nucleated RBC % 0, Differential Comment SCANNED, Polychromasia RARE, Hypochromasia 2+, Anisocytosis 3+, Microcytosis 1+, Macrocytosis 1+, Tear Drop Cells RARE, Ovalocytes 2+, Stomatocytes RARE, PT 14.2, INR 1.1, Sodium 129 L, Potassium 3.8, Chloride 100, Carbon Dioxide 25.0, Anion Gap 5, BUN 19 H, Creatinine 1.02, Estim Creat Clear Calc 62.74, Est GFR (MDRD) Af Amer 73, Est GFR (MDRD) Non-Af 61, BUN/Creatinine Ratio 18.6, Glucose 302 H, Hemoglobin A1c Cancelled, Calcium 8.1 L, Total Bilirubin 0.20, AST 18, ALT 34, Alkaline Phosphatase 82, Total Protein 5.5 L, A lbumin 2.0 L, Globulin 3.5, Albumin/Globulin Ratio 0.6 L 05/04/24 09:26: POC Glucose 90 Radiography Diagnostic Testing: Radiology Impression Chest X-Ray 05/03/24 11:29 IMPRESSION: Mild cardiomegaly. The lungs are clear. Electronically Signed: Aris Lugo MD at 12:15 EST , Rhythm Strip Rhythm Strip: Sinus Rhythm Rate: 92 Ectopy: None Charges/Coding Visit Charges Inpatient E&M: 09712 Subs Hosp L1
[2024-05-04 11:21] LABS: Bedside Glucose 198 mg/dL (74-106)
--- NOTE | 2024-05-04 11:23 | PCM.POSTANE2 ---
Anesthesia Postop Eval I Sum Postop Eval Completion status Anesthesia document: Postop Eval 1 completed: Yes Anesthesia Postop Eval I Summary Anesthesia Postop Eval I Summary: Anesthesia Postop Eval I: Assessment Summary Airway patent Yes 05/04/24 10:14 Spontaneous unlabored Yes 05/04/24 10:14 respirations Mental status Awake,Calm 05/04/24 10:14 nausea No 05/04/24 10:14 Vomiting No 05/04/24 10:14 Anesthesia Postop Eval I: Fluid Summary Crystalloid volume administer 5 05/04/24 10:14 (ml) Colloids volume administered ( ml) Blood Product volume administered (ml) Total IV fluid infused 5 05/04/24 10:14 Anesthesia Postop Eval I: Summary Notes Anesthesia Complication No 05/04/24 10:14 Anesthesia Complication Comment: Post-operative progress note Anesthesia: Postop Eval II Evaluation Mental status: Awake and Calm Pain Level: 0 nausea: No Vomiting: No Complications Anesthesia Complication: No
[2024-05-04 11:44] LABS: Bedside Glucose 79 mg/dL (74-106)
[2024-05-04] MEDS: Lisinopril 40 MG Tablet PO (11:47)
[2024-05-04] MEDS: Sodium Ferric Gluconat/Sucrose 250 MG in 0.9% Normal Saline (250mL Bag) 250 ML 135 MG IV (12:43)
[2024-05-04] MEDS: Insulin Lispro 100 UNIT/ML INSULN.PEN 10 UNIT SC (12:51)
[2024-05-04 13:14] LABS: Bedside Glucose 197 mg/dL (74-106)
[2024-05-04] MEDS: Bisacodyl 5 MG Tablet 20 MG PO (14:25)
[2024-05-04] MEDS: Polyethylene Glycol 3350 BOWEL PREP PO (16:34)
[2024-05-04 17:23] LABS: Bedside Glucose 98 mg/dL (74-106)
[2024-05-04 21:58] LABS: Bedside Glucose 91 mg/dL (74-106)
[2024-05-05] VITALS (12 sets, daily range): BP systolic 102–132; BP diastolic 56–88; PULSE 88–102; RESP 16; TEMP 36.3–37.3; O2SAT 98–100; BMI 24.4
[2024-05-05 03:35] LABS: Absolute Lymphocyte Count 0.92 X10^3/uL (0.83-4.51); Absolute Neutrophil Count 2.7 X10^3/uL (2.0-7.7); Basophil# 0.05 X10^3/uL; Basophil% 1.2 % (0-1); Eosinophil# 0.22 X10^3/uL; Eosinophils% 5.2 % (0-5); Hematocrit 25.7 % (37-47); Hemoglobin 6.9 g/dL (12.0-15.0); Lymphocyte # 0.92 X10^3/ul (0.83-4.51); Lymphocyte % 21.6 % (19-41); Mean Corp Hgb Conc 26.8 g/dL (32-36); Mean Corpuscular Hgb 16.8 pg (27.0-32.0); Mean Corpuscular Volume 62.5 fL (81-99); Monocyte# 0.41 X10^3/uL; Monocyte% 9.6 % (0-10); NRBC Flagged by Analyzer 0.5 % (0-5); Neutrophil # 2.65 X10^3/uL (2.7-7.7); Neutrophil % 62.2 % (47-70); POSITIVE MORPHOLOGY YES; Platelet Count 549 K/mm3 (150-450); RBC Distribution Width CV 21.7 % (11.6-14.6); RBC Distribution Width SD 46.7 fl (35.1-43.9); Red Blood Count 4.11 M/mm3 (4.2-5.4); White Blood Count 4.3 K/mm3 (4.4-11.0)
[2024-05-05 03:42] LABS: Differential Indicated SCAN CRITERIA MET
[2024-05-05 03:52] LABS: Anion Gap 4 (5-15); BUN 11 mg/dL (7-18); BUN/Creat Ratio 11.9 RATIO (10-20); Calcium,Total 8.3 mg/dL (8.5-10.1); Chloride 104 mmol/L (98-107); Creatinine, Serum 0.92 mg/dL (0.55-1.02); EST Glomerular Filtration Rate 68 mL/min (>60); Est Glom Filt Rate - Afr Amer 82 mL/min (>60); Estimated Creatinine Clearance 69.56 ml/min; Glucose 155 mg/dL (74-106); Potassium 3.9 mmol/L (3.5-5.1); Sodium Level 134 mmol/L (136-145)
[2024-05-05 04:01] LABS: Anisocytosis 2+; Hypochromasia 3+
[2024-05-05 06:41] LABS: Bedside Glucose 124 mg/dL (74-106)
--- NOTE | 2024-05-05 08:53 | PN.GI_ITS ---
Subjective Subjective Patient is for colonoscopy today. She tolerated a prep without any problems. Her hemoglobin is up to 6.9. Objective Data Objective Data Vital Signs: Vital Signs Temp Pulse Resp BP Pulse Ox O2 Del Method 98 F 88 16 105/73 99 Room Air 05/05/24 08:09 05/05/24 08:09 05/05/24 08:09 05/05/24 08:09 05/05/24 08:09 05/05/24 08:15 Oxygen Delivery Method Room Air Weight: 156 lb Body Mass Index (BMI) 24.4 Intake & Output: Intake and Output for Last 24 Hours 05/03/24 05/04/24 05/05/24 23:59 23:59 23:59 Intake Total 110 / 110 1909 Balance 110 / 110 1909 Lab / Micro Data 05/05/24 03:14 05/05/24 03:14 Labs: Laboratory Results - last 24 hr 05/03/24 14:43: Crossmatch See Detail 05/04/24 05:08: Diff Path Review Buffy crowe, Hemoglobin A1c Cancelled, Miscellaneous Test COMMENT 05/04/24 07:13: POC Glucose 198 H 05/04/24 09:26: POC Glucose 90 05/04/24 11:17: POC Glucose 79 05/04/24 12:50: POC Glucose 197 H 05/04/24 16:39: POC Glucose 98 05/04/24 20:46: POC Glucose 91 05/05/24 03:14: WBC 4.3 L, RBC 4.11 L, Hgb 6.9 L, Hct 25.7 L, MCV 62.5 L, MCH 16.8 L, MCHC 26.8 L, RDW Std Deviation 46.7 H, RDW Coeff of Rachael 21.7 H, Plt Count 549 H, MPV 9.0, Immature Gran % (Auto) 0.200, Neut % (Auto) 62.2, Lymph % (Auto) 21.6, [place] % (Auto) 9.6, Eos % (Auto) 5.2 H, Baso % (Auto) 1.2 H, Absolute Neuts (auto) 2.7, Absolute Lymphs (auto) 0.92, Nucleated RBC % 0.5, Hypochromasia 3+, Anisocytosis 2+, Sodium 134 L, Potassium 3.9, Chloride 104, Carbon Dioxide 26.0, Anion Gap 4 L, BUN 11, Creatinine 0.92, Estim Creat Clear Calc 69.56, Est GFR (MDRD) Af Amer 82, Est GFR (MDRD) Non-Af 68, BUN/Creatinine Ratio 11.9, Glucose 155 H, Calcium 8.3 L 05/05/24 06:17: POC Glucose 124 H Rhythm Strip Rhythm Strip: Sinus Rhythm Rate: 92 Ectopy: None Physical Exam Narrative General: Alert, Oriented x3, Cooperative, No apparent distress HEENT: Atraumatic, PERRLA, EOMI, Normocephalic Oral: Moist Mucosa Neck: Supple, No JVD Lungs: Diminished, Normal air movement, No rhonchi, No wheeze, No rales Cardiovascular: Tachycardic, Regular Rhythm, Normal S1, Normal S2, No murmurs Abdomen: Soft, Non Tender, Non-Distended, No Hepato-splenomegaly Extremities: No edema, Capillary Refill Less than 3 Seconds Skin: No rashes, No breakdown Musculoskeletal: No Tenderness to Palpation of Joints or Extremities Neurological: No focal neurological deficits, Motor Exam 5/5 strength throughout, Sensory exam intact to light touch and pain Psych/Mental Status: Normal Affect, Appropriate Assessment & Plan Assessment/Plan (1) Acute anemia: (2) Thrombocytosis: (3) Hyponatremia: (4) Hyperglycemia: PLAN: Plan 54-year-old with history of CAD status post PTCA with stents with severe iron deficiency anemia -Suspected GI loss. Patient will undergo an upper endoscopy to evaluate upper GI tract with push enteroscopy. If this is negative then she will need to undergo colonoscopy. -Patient reports she had a colonoscopy about 2 years ago that she states was unremarkable -Suspect this has been a slow drop in hemoglobin over time given her relative asymptomatic state -Patient declines transfusions due to jehovah's witness-[employer] -Agree with IV iron 200 mg daily x 3 days -Also recommending : Epoegen 40,000 units IV or subcutaneous daily, , then change dosing to 40,000 units weekly Iron: 200 mg iron sucrose intravenous daily for 10 days minimum and then consider conversion to oral iron supplemental on Vitamin C: 500 mg TID, except in renal failure (qD) Folate: 1 mg PO or IV qD Vitamin B12: consider IV vs. oral supplemental 05/05/2024-she had a normal upper endoscopy yesterday. She is for colonoscopy today. All questions and answered prior to the procedure. Charges/Coding Visit Charges Inpatient E&M: 96004 Subs Hosp L3
--- NOTE | 2024-05-05 09:40 | OP.COLON_ITS ---
Patient Name: Mariella Ramirez Procedure Date: 05/05/2024 8:52 AM Date of : 1970 Age: 54 Procedure: Colonoscopy Indications: Iron deficiency anemia Providers: Rony Milligan DO Medicines: Monitored Anesthesia Care Patient Profile: This is a 54 year old female. Refer to note in patient chart for documentation of history and physical. Last Colonoscopy: within the past 3 years. Complications: No immediate complications. Procedure: Pre-Anesthesia Assessment: - Prior to the procedure, a History and Physical was performed, and patient medications and allergies were reviewed. The patient is competent. The risks and benefits of the procedure and the sedation options and risks were discussed with the patient. All questions were answered and informed consent was obtained. Patient identification and proposed procedure were verified by the physician in the pre-procedure area. Mental Status Examination: alert and oriented. Airway Examination: normal oropharyngeal airway and neck mobility. Respiratory Examination: clear to auscultation. CV Examination: normal. Prophylactic Antibiotics: The patient does not require prophylactic antibiotics. Prior Anticoagulants: The patient has taken no anticoagulant or antiplatelet agents. ASA Grade Assessment: II - A patient with mild systemic disease. After reviewing the risks and benefits, the patient was deemed in satisfactory condition to undergo the procedure. The anesthesia plan was to use monitored anesthesia care (MAC). Immediately prior to administration of medications, the patient was re-assessed for adequacy to receive sedatives. The heart rate, respiratory rate, oxygen saturations, blood pressure, adequacy of pulmonary ventilation, and response to care were monitored throughout the procedure. The physical status of the patient was re-assessed after the procedure. After I obtained informed consent, the scope was passed under direct vision. Throughout the procedure, the patient's blood pressure, pulse, and oxygen saturations were monitored continuously. The Colonoscope was introduced through the anus and advanced to the cecum, identified by appendiceal orifice and ileocecal valve. The colonoscopy was performed without difficulty. The patient tolerated the procedure well. The quality of the bowel preparation was adequate. The ileocecal valve, appendiceal orifice, and rectum were photographed. Scope In: 9:19:23 AM Scope Withdrawal Time 0 hours 7 minutes 25 seconds Scope Out: 9:32:43 AM Total Procedure Duration Time 0 hours 13 minutes 20 seconds Findings: The perianal and digital rectal examinations were normal. A few small-mouthed diverticula were found in the recto-sigmoid colon and sigmoid colon. The exam was otherwise without abnormality on direct and retroflexion views. Impression: - Diverticulosis in the recto-sigmoid colon and in the sigmoid colon. - The examination was otherwise normal on direct and retroflexion views. - No specimens collected. Recommendation: - [facility]. - Resume regular diet. - Continue present medications. - Repeat colonoscopy in 10 years for screening purposes. Procedure Code(s): --- Professional --- 89210, Colonoscopy, flexible; diagnostic, including collection of specimen(s) by brushing or washing, when performed (separate procedure) CPT copyright 2021 [employer]. All rights reserved. The codes documented in this report are preliminary and upon work order sorting clerk review may be revised to meet current compliance requirements. Rony Milligan DO 05/05/2024 9:39:30 AM This report has been signed electronically. Number of Addenda: 0 Note Initiated On: 05/05/2024 8:52 AM
--- NOTE | 2024-05-05 09:40 | OP.CCLET_ITS ---
05/05/2024 Gerber Pina [address] [place] [address] Re : Colonoscopy procedure for Mariella James Dear Dr. Pina This procedure was performed on Sunday, May 05, 2024. My impressions and recommendations are as follows: Impressions : - Diverticulosis in the recto-sigmoid colon and in the sigmoid colon. - The examination was otherwise normal on direct and retroflexion views. - No specimens collected. Recommendations : - [facility]. - Resume regular diet. - Continue present medications. - Repeat colonoscopy in 10 years for screening purposes. My findings are described in the full procedure note, which is enclosed. If I can be of further assistance, please feel free to contact me at . Sincerely, Rony Milligan, 05/05/2024 9:39:30 AM This report has been signed electronically.
--- NOTE | 2024-05-05 09:45 | PCM.PRE.AN2 ---
ASA Classification* ASA Classification ASA Classification: 3 Assessment & Plan Anesthesia* Anesthesia Assessment Anesthesia Assessment: Discussed sedation and/or anesthesia options, risks, benefits, and alternatives with patient/parents/legal guardian/POA. Questions invited. The patient/parents/legal guardian/POA seems to understand and agrees to proceed with anesthesia plan. Reviewed the physical assessment, medical history, allergy history and patient home medications list prior to surgery/procedure/anesthetic and documented any changes. Performed airway and anesthesia risk assessments. Anesthesia Type Anesthesia Type: MAC History Source History Obtained from:: Patient and Chart Anesthesia Focused Assessment* Temperature: 98 F Pulse Rate: 88 Blood Pressure: 105/73 Respiratory Rate: 16 Pulse Ox: 99 Airway Assessment Mouth opens: >3 cm Mallampati Score: III Teeth Condition: Chipped/Broken (Patient has a chipped right upper molar.) and Missing (Patient has a missing right upper molar. The rest of the teeth are tight) Neck Range of motion (ROM): Full ROM Focused Labs Anesthesia Preop lab: CBC WBC 4.3 K/mm3 (4.4-11.0) L 05/05/24 03:14 RBC 4.11 M/mm3 (4.2-5.4) L 05/05/24 03:14 Hgb 6.9 g/dL (12.0-15.0) L 05/05/24 03:14 Hct 25.7 % (37-47) L 05/05/24 03:14 Plt Count 549 K/mm3 (150-450) H 05/05/24 03:14 CHEMISTRY Potassium 3.9 mmol/L (3.5-5.1) 05/05/24 03:14 Sodium 134 mmol/L (136-145) L 05/05/24 03:14 BUN 11 mg/dL (7-18) 05/05/24 03:14 Creatinine 0.92 mg/dL (0.55-1.02) 05/05/24 03:14 Glucose 155 mg/dL (74-106) H 05/05/24 03:14 POC Glucose 124 mg/dL (74-106) H 05/05/24 06:17 COAG PT 14.2 SECONDS (11.7-14.9) 05/04/24 05:08 Urine Test Negative Negative 05/03/24 23:10 Pre-Assessment Diagnosis/Proposed Procedure Planned Operative Procedure(s): Colonoscopy Anesthesia History Anesthesia History - electronic assembler: Anesthesia History - electronic assembler Hx Hospitalization Any Problems With Anesthesia No 05/04/24 20:50 Cholinesterase deficiency No 05/04/24 20:50 You/Your Family Experience No 05/04/24 20:50 fever (hyperthermia) with Relationship Recent Exposure to Contagious No 05/04/24 20:50 Disease Does patient have nerve No 05/04/24 20:50 stimulator Patient instructed to have device shut off --Does patient have Pacemaker No 05/05/24 08:09 or ICD? When Was Last Pacemaker Check QUESTION #4 FULL TEXT: You/Your Family Experience fever (hyperthermia) with Anesthesia Last Oral Intake Last Oral intake: Last Oral Intake NPO since 00:00 05/05/24 08:09 Meds taken in AM with sips of No 05/05/24 08:09 water? Meds patient instructed to take am of surgery PONV PONV - electronic assembler: PONV - electronic assembler Female HX of Motion Sickness HX of N/V After Surgery Non-Smoker Duration of Surgery greater than 60 minutes Number of Risk Factors PONV Score Height & Weight Height & Weight: Anesthesia: Height & Weight Height 5 ft 7 in 05/05/24 08:09 Weight: 70.76 kg 05/05/24 08:09 Body Mass Index (BMI) 24.4 05/05/24 08:09 Respiratory Assessment Respiratory Assessment - electronic assembler: Respiratory Tract Infection Hx - electronic assembler Hx Respiratory Tract Infection No 05/04/24 20:50 STOP Sleep Apnea STOP Sleep Apnea - electronic assembler: STOP Sleep Apnea - electronic assembler Hx Hypertension Yes 05/03/24 17:09 Hx Sleep Apnea No 05/04/24 10:25 CPAP BIPAP Do you snore loudly (louder No 05/03/24 17:09 than talking or can be heard Do you often feel tired/ No 05/03/24 17:09 fatigued/ sleepy during daytime? Has anyone observed you stop No 05/03/24 17:09 breathing during sleep? STOP Results Negative 05/03/24 17:09 QUESTION #5 FULL TEXT : Do you snore loudly (louder than talking or can be heard through closed doors)? Tobacco Use History Tobacco Use History - electronic assembler: Tobacco Use History - electronic assembler Tobacco Use Smoking Status Never smoker 05/03/24 17:09 Hx Tobacco Use No 05/03/24 17:09 Years Smoking Packs Smoked per Day Smoking Cessation Date was within the last 15 years Hx Smoking Cessation Date Hx Smoking Cessation Counseling Hematologic Medial History Hematologic Hx - electronic assembler: Hematologic Medical Hx - electronic assembler Hx of Blood Transfusion No 05/03/24 17:09 Hx of Transfusion in last 3 No 05/03/24 17:09 Months Date of Last Transfusion (if within last 3 months) Ever experience any problems No 05/03/24 17:09 with transfusion(s)? Specify any problems Hx of Preganancy in last 3 No 05/03/24 17:09 Months Nurse Filling Out Transfusion TWOLF 05/03/24 17:09 & Questions: Date: 05/03/24 05/03/24 17:09 Time: 17:10 05/03/24 17:09 Patient unable to answer at this time (ie. confused, unrespo /Reproduction History /Reproductive History - electronic assembler: /Reproductive Hx- electronic assembler Hx Now No 05/04/24 20:50 Gestational Age (in weeks): EDC: Hx Hx Para Hx Section SAB No 05/04/24 20:50 Active Medications Active Medications: Current Medications Generic Name Dose Route Start Last Admin Trade Name Freq PRN Reason Stop Dose Admin Acetaminophen 650 mg 05/03/24 16:55 Acetaminophen 325 Mg Tablet PO Q6H PRN PRN Pain 1-10 Or Fever>100.7 Albuterol Sulfate 2.5 mg 05/03/24 16:55 Albuterol 2.5 Mg/3 Ml Vial.Neb. INHALATION Q2H PRN PRN SOB &/OR WHEEZING Glucagon 1 mg 05/03/24 16:55 Glucagon 1 Mg/Ml Syringe IM X1 PRN HYPOGLYCEMIA Protocol Hydralazine HCl 10 mg 05/03/24 21:35 Hydralazine 20 Mg/Ml Vial IV Q6H PRN PRN SBP>150 Protocol Pantoprazole Sodium 40 mg/ 110 mls @ 330 mls/hr 05/03/24 22:00 05/04/24 21:21 Sodium Chloride IV Infused Q12 JOLYNN Infusion Dextrose 250 mls @ 0 mls/hr 05/03/24 16:55 Dextrose 10%-Water IV .Q0M PRN HYPOGLYCEMIA Protocol As Directed Sodium Chloride 100 mls @ 15 mls/hr 05/03/24 17:15 IV .Q6H40M PRN Saline Flush Sodium Chloride 100 mls @ 15 mls/hr 05/03/24 17:15 IV .Q6H40M PRN Additional IVPB Infusion Ferric Sodium Gluconate 270 mls @ 135 mls/hr 05/04/24 11:00 05/04/24 14:43 Complex 250 mg/ Sodium IV 05/06/24 12:59 Infused Chloride DAILY@1100 JOLYNN Infusion Folic Acid 1 mg/ Sodium 50.2 mls @ 200 mls/hr 05/05/24 10:00 Chloride IV DAILY [facility] Insulin Glargine 40 unit 05/03/24 22:00 05/04/24 20:47 Insulin Glargine-Yfgn 100 Unit/Ml Pen SC Not Given QHS [facility] Protocol Insulin Human Lispro 0 unit 05/03/24 16:55 05/05/24 06:18 Insulin Lispro 100 Unit/Ml Insuln.Pen SC Not Given ACHS [facility] Protocol Insulin Human Lispro 10 unit 05/03/24 16:55 05/05/24 08:07 Insulin Lispro 100 Unit/Ml Insuln.Pen SC Not Given TIDCM [facility] Lisinopril 40 mg 05/04/24 10:00 05/04/24 11:47 Lisinopril 40 Mg Tablet PO 40 mg DAILY [facility] Administration Protocol Melatonin 3 mg 05/03/24 16:55 Melatonin 3 Mg Tablet PO QHS PRN PRN INSOMNIA Ondansetron HCl 4 mg 05/03/24 16:55 Ondansetron 4 Mg/2 Ml Vial IV Q8H PRN PRN NAUSEA/VOMITING Senna/Docusate Sodium 2 tablet 05/03/24 16:55 Senna/Docusate Sodium 1 Tablet PO BID PRN PRN Constipation Sodium Chloride 10 - 40 ml 05/03/24 17:15 05/04/24 14:25 0.9% Saline Lock 10 Ml Syringe IV 20 ml UD PRN Administration SALINE FLUSH PFSH Medical History Hypertension Chest pain Hyperglycemia Essential hypertension Atherosclerotic heart disease of [place] coronary artery without angina pectoris History of CAD (coronary artery disease) Myocardial infarct Type 2 diabetes mellitus Home Medications ?Medication ?Instructions ?Recorded ?Last Taken ?Type acetaminophen 325 mg tablet 650 mg (2 x 325 mg) PO Q6H PRN PRN 09/02/22 Unknown Rx Pain 1-10 Or Fever >100.7 #0 tabs aspirin 81 mg tablet,delayed 81 mg PO BREAKFAST #0 tabs 09/02/22 Unknown Rx release pen needle, diabetic 29 gauge x #100 ea 09/02/22 Unknown Rx 1/2 lisinopril 10 mg tablet 10 mg PO DAILY #90 tabs 10/11/22 Unknown Rx ticagrelor 90 mg tablet (Brilinta) 90 mg PO BID #60 tabs 02/02/24 Unknown Rx Allergy/AdvReac Type Severity Reaction Status Date / Time latex Allergy Rash Verified 05/03/24 09:57 morphine AdvReac Nausea Verified 05/03/24 09:57 Family History Other Hypertension Surgical History Stented coronary artery (09/01/22) History of coronary artery stent placement (~08/24/20) Social History Smoking Status: Never smoker alcohol intake: never substance use type: does not use caffeine: No Review of Systems (Anesthesia) ROS Narrative System reviewed and no additional complaints, except as documented.
--- NOTE | 2024-05-05 09:46 | PCM.POST.ANE ---
Anesthesia: Postop Eval I Current Vital Signs Temperature: 99 F Pulse Rate: 90 Blood Pressure: 117/74 Respiratory Rate: 16 Pulse Ox: 100 Oxygen Delivery Method: Room Air Assessment Airway patent: Yes Spontaneous unlabored respirations: Yes Mental status: Awake and Calm nausea: No Vomiting: No Anesthesia Complication: No Fluid Hydration Crystalloid volume administer (ml): 10 Total IV fluid infused: 10 Progress Note Anesthesia document: Postop Eval 1 completed: Yes
--- NOTE | 2024-05-05 10:47 | PCM.PN.HOSP ---
Subjective Subjective EGD was unremarkable, plan for colonoscopy today. No issues overnight. Hemoglobin has improved with iron infusions Objective Data Objective Data Vital Signs: Vital Signs Temp Pulse Resp BP Pulse Ox O2 Del Method 99.1 F 92 16 114/74 99 Room Air 05/05/24 09:51 05/05/24 09:51 05/05/24 09:51 05/05/24 09:51 05/05/24 09:51 05/05/24 09:51 Oxygen Delivery Method Room Air Weight: 156 lb Body Mass Index (BMI) 24.4 Intake & Output: Intake and Output for Last 24 Hours 05/04/24 05/05/24 05/06/24 03:59 03:59 03:59 Intake Total 380 / 380 3640 / 3640 Balance 380 / 380 3640 / 3640 Lab / Micro Data 05/05/24 03:14 05/05/24 03:14 Labs: Laboratory Results - last 24 hr 05/04/24 05:08: Diff Path Review May amrita, Miscellaneous Test COMMENT 05/04/24 07:13: POC Glucose 198 H 05/04/24 11:17: POC Glucose 79 05/04/24 12:50: POC Glucose 197 H 05/04/24 16:39: POC Glucose 98 05/04/24 20:46: POC Glucose 91 05/05/24 03:14: WBC 4.3 L, RBC 4.11 L, Hgb 6.9 L, Hct 25.7 L, MCV 62.5 L, MCH 16.8 L, MCHC 26.8 L, RDW Std Deviation 46.7 H, RDW Coeff of Rachael 21.7 H, Plt Count 549 H, MPV 9.0, Immature Gran % (Auto) 0.200, Neut % (Auto) 62.2, Lymph % (Auto) 21.6, [place] % (Auto) 9.6, Eos % (Auto) 5.2 H, Baso % (Auto) 1.2 H, Absolute Neuts (auto) 2.7, Absolute Lymphs (auto) 0.92, Nucleated RBC % 0.5, Hypochromasia 3+, Anisocytosis 2+, Sodium 134 L, Potassium 3.9, Chloride 104, Carbon Dioxide 26.0, Anion Gap 4 L, BUN 11, Creatinine 0.92, Estim Creat Clear Calc 69.56, Est GFR (MDRD) Af Amer 82, Est GFR (MDRD) Non-Af 68, BUN/Creatinine Ratio 11.9, Glucose 155 H, Calcium 8.3 L 05/05/24 06:17: POC Glucose 124 H Rhythm Strip Rhythm Strip: Sinus Rhythm Rate: 92 Ectopy: None Physical Exam Narrative General: Alert, Oriented x3, Cooperative, No apparent distress HEENT: Atraumatic, PERRLA, EOMI, Normocephalic Oral: Moist Mucosa Neck: Supple, No JVD Lungs: Diminished, Normal air movement, No rhonchi, No wheeze, No rales Cardiovascular: Tachycardic, Regular Rhythm, Normal S1, Normal S2, No murmurs Abdomen: Soft, Non Tender, Non-Distended, No Hepato-splenomegaly Extremities: No edema, Capillary Refill Less than 3 Seconds Skin: No rashes, No breakdown Musculoskeletal: No Tenderness to Palpation of Joints or Extremities Neurological: No focal neurological deficits, Motor Exam 5/5 strength throughout, Sensory exam intact to light touch and pain Psych/Mental Status: Normal Affect, Appropriate HEENT normocephalic, head/scalp atraumatic, hearing grossly normal bilaterally and moist oral mucous membranes Eyes EOMs intact bilaterally Eyes Narrative: Markedly pale conjunctiva bilaterally, no scleral icterus Neck supple Neck Narrative: Trachea midline, no thyroid enlargement Resp normal respiratory effort, no retractions, no use of accessory muscles and clear to auscultation bilaterally Auscultation: Negative for rales, rhonchi or wheezes Cardio regular rate, regular rhythm, S1 normal heart sound, S2 normal heart sound, no murmurs, no rub, no gallops and no clicks GI normal to inspection, nondistended, normoactive bowel sounds, soft to palpation and non-tender Extremity Extremity Narrative: Trace bilateral lower extremity edema, no cyanosis or clubbing Neuro oriented x3, moves all extremities and no focal motor deficits Speech: speech normal Psych affect normal Psych Narrative: Very pleasant, interacts appropriately Assessment & Plan Assessment/Plan (1) Acute anemia: (2) Thrombocytosis: (3) Hyponatremia: (4) Hyperglycemia: PLAN: Plan 1. Severe iron deficiency anemia secondary to GI bleed with thrombocytosis ? EGD was unremarkable, proceeding with colonoscopy today ? Appreciate GI's assistance ? She has not had a transfusion given she is Hindu ? Continue with iron infusions ? Will hold her aspirin and Brilinta, her stents were over a year ago 2. CAD status post stent/essential HTN/HLD ? Continue with her home blood pressure medications ? Continue with her Lipitor ?Echo 08/2022 with a normal EF and moderate concentric left ventricular hypertrophy with an LVOT dynamic gradient of 70 m/s ? Continue to hold aspirin and Brilinta 3. DM2 ? Continue sliding scale insulin ? Will monitor make adjustments as necessary ? Accu-Cheks ACHS DVT: SCDs Charges/Coding Visit Charges Inpatient E&M: 71022 Subs Hosp L2
[2024-05-05] MEDS: 0.9% Saline Lock 10 ML Syringe IV ×2 (11:57→12:11)
[2024-05-05] MEDS: Pantoprazole Sodium 40 MG in 0.9% Normal Saline (100mL MB+) 100 ML 330 MG IV ×2 (11:58→23:22)
[2024-05-05 12:08] LABS: Bedside Glucose 100 mg/dL (74-106)
[2024-05-05] MEDS: Lisinopril 40 MG Tablet PO (12:10)
[2024-05-05] MEDS: Cyanocobalamin (B12) 1,000 MCG/ML Vial 1000 MCG IM (12:15)
[2024-05-05] MEDS: Epoetin Alfa epbx 10,000 UNIT/ML 10000 UNIT SC ×2 (12:22)
[2024-05-05] MEDS: Insulin Lispro 100 UNIT/ML INSULN.PEN 10 UNIT SC ×2 (12:31→17:27)
[2024-05-05] MEDS: Folic Acid 1 MG in 0.9% Normal Saline (50mL Bag) 50 ML 200 MG IV (12:34)
--- NOTE | 2024-05-05 13:44 | PCM.POSTANE2 ---
Anesthesia Postop Eval I Sum Postop Eval Completion status Anesthesia document: Postop Eval 1 completed: Yes Anesthesia Postop Eval I Summary Anesthesia Postop Eval I Summary: Anesthesia Postop Eval I: Assessment Summary Airway patent Yes 05/05/24 09:48 Spontaneous unlabored Yes 05/05/24 09:48 respirations Mental status Awake,Calm 05/05/24 09:48 nausea No 05/05/24 09:48 Vomiting No 05/05/24 09:48 Anesthesia Postop Eval I: Fluid Summary Crystalloid volume administer 10 05/05/24 09:48 (ml) Colloids volume administered ( ml) Blood Product volume administered (ml) Total IV fluid infused 10 05/05/24 09:48 Anesthesia Postop Eval I: Summary Notes Anesthesia Complication No 05/05/24 09:48 Anesthesia Complication Comment: Post-operative progress note Anesthesia: Postop Eval II Evaluation Mental status: Awake and Calm Pain Level: 0 nausea: No Vomiting: No Complications Anesthesia Complication: No
--- NOTE | 2024-05-05 13:48 | ANES.CONFIRM ---
Anesthesia: Confirm Documents Multiple Procedures on Account (2) Confirmed Documents: Yes
[2024-05-05] MEDS: Sodium Ferric Gluconat/Sucrose 250 MG in 0.9% Normal Saline (250mL Bag) 250 ML 135 MG IV (14:05)
[2024-05-05 16:21] LABS: Bedside Glucose 260 mg/dL (74-106)
[2024-05-05] MEDS: Insulin Lispro 100 UNIT/ML INSULN.PEN SC ×2 (17:29→23:24)
[2024-05-05 17:49] LABS: Bedside Glucose 294 mg/dL (74-106)
[2024-05-05] MEDS: Insulin Glargine-YFGN 100 UNIT/ML Pen 40 UNIT SC (23:23)
[2024-05-05 23:43] LABS: Bedside Glucose 424 mg/dL (74-106)
[2024-05-06 04:49] LABS: Absolute Lymphocyte Count 0.95 X10^3/uL (0.83-4.51); Absolute Neutrophil Count 3.3 X10^3/uL (2.0-7.7); Basophil# 0.03 X10^3/uL; Basophil% 0.6 % (0-1); Eosinophil# 0.17 X10^3/uL; Eosinophils% 3.4 % (0-5); Hematocrit 22.1 % (37-47); Lymphocyte # 0.95 X10^3/ul (0.83-4.51); Lymphocyte % 18.9 % (19-41); Mean Corp Hgb Conc 26.2 g/dL (32-36); Mean Corpuscular Volume 64.8 fL (81-99); Mean Platelet Vol. 9.3 fl (6.2-12.0); Monocyte# 0.56 X10^3/uL; Monocyte% 11.2 % (0-10); NRBC Flagged by Analyzer 0.4 % (0-5); Neutrophil # 3.26 X10^3/uL (2.7-7.7); Neutrophil % 64.9 % (47-70); POSITIVE COUNT YES; POSITIVE MORPHOLOGY YES; Platelet Count 469 K/mm3 (150-450); RBC Distribution Width CV 22.3 % (11.6-14.6); RBC Distribution Width SD 49.5 fl (35.1-43.9); Red Blood Count 3.41 M/mm3 (4.2-5.4)
[2024-05-06 04:54] LABS: Hemoglobin 5.8 g/dL (12.0-15.0)
[2024-05-06 04:55] LABS: Differential Indicated SCAN CRITERIA MET
[2024-05-06 05:14] LABS: Anion Gap 5 (5-15); BUN 12 mg/dL (7-18); BUN/Creat Ratio 10.3 RATIO (10-20); Calcium,Total 8.3 mg/dL (8.5-10.1); Chloride 105 mmol/L (98-107); Creatinine, Serum 1.16 mg/dL (0.55-1.02); EST Glomerular Filtration Rate 52 mL/min (>60); Est Glom Filt Rate - Afr Amer 63 mL/min (>60); Estimated Creatinine Clearance 55.17 ml/min; Glucose 260 mg/dL (74-106); Potassium 3.9 mmol/L (3.5-5.1); Sodium Level 133 mmol/L (136-145)
[2024-05-06 06:02] LABS: Anisocytosis 2+; Hypochromasia 2+; Macrocytosis 1+; Ovalocyte 1+; Platelet Estimate MOD INC (ADEQ)
[2024-05-06] MEDS: Insulin Lispro 100 UNIT/ML INSULN.PEN SC ×2 (06:43→21:49)
[2024-05-06 06:46] VITALS: BP 131/86; PULSE 99; RESP 16; TEMP 36.6; O2SAT 100
[2024-05-06 07:03] LABS: Bedside Glucose 233 mg/dL (74-106)
[2024-05-06 08:42] VITALS: O2SAT 99
[2024-05-06 09:08] VITALS: BP 118/78; PULSE 103; RESP 18; TEMP 36.7; O2SAT 100
[2024-05-06] MEDS: Insulin Lispro 100 UNIT/ML INSULN.PEN 10 UNIT SC ×3 (09:12→17:32)
[2024-05-06] MEDS: Lisinopril 40 MG Tablet PO (09:14)
[2024-05-06] MEDS: Pantoprazole Sodium 40 MG in 0.9% Normal Saline (100mL MB+) 100 ML 330 MG IV ×2 (10:11→21:27)
[2024-05-06] MEDS: Folic Acid 1 MG in 0.9% Normal Saline (50mL Bag) 50 ML 200 MG IV (10:37)
[2024-05-06] MEDS: Sodium Ferric Gluconat/Sucrose 250 MG in 0.9% Normal Saline (250mL Bag) 250 ML 135 MG IV (11:41)
--- NOTE | 2024-05-06 11:42 | PN_ITS ---
Subjective Subjective Patient seen and examined. She had no active complaints. She was eating and felt comfortable. Review of systems otherwise negative. Her Hb is down to 5.8 today, from 6.9 yesterday. She denies any melena or hematochezia. Objective Data Objective Data Vital Signs: Vital Signs Temp Pulse Resp BP Pulse Ox O2 Del Method 98.0 F 103 H 18 118/78 100 Room Air 05/06/24 09:08 05/06/24 09:08 05/06/24 09:08 05/06/24 09:08 05/06/24 09:08 05/06/24 09:08 Oxygen Delivery Method Room Air Weight: 156 lb Body Mass Index (BMI) 24.4 Intake & Output: Intake and Output for Last 24 Hours 05/04/24 05/05/24 05/06/24 23:59 23:59 23:59 Intake Total 1909 3130.2 / 3130.2 270.2 / 270.2 Balance 1909 3130.2 / 3130.2 270.2 / 270.2 Lab / Micro Data 05/06/24 04:16 05/06/24 04:16 Labs: Laboratory Results - last 24 hr 05/05/24 11:43: POC Glucose 100 05/05/24 16:01: POC Glucose 260 H 05/05/24 17:21: POC Glucose 294 H 05/05/24 23:22: POC Glucose 424 H 05/06/24 04:16: WBC 5.0, RBC 3.41 L, Hgb 5.8 L*, Hct 22.1 L, MCV 64.8 L, MCH 17.0 L, MCHC 26.2 L, RDW Std Deviation 49.5 H, RDW Coeff of Rachael 22.3 H, Plt Count 469 H, MPV 9.3, Immature Gran % (Auto) 1.000 H, Neut % (Auto) 64.9, Lymph % (Auto) 18.9 L, [place] % (Auto) 11.2 H, Eos % (Auto) 3.4, Baso % (Auto) 0.6, Absolute Neuts (auto) 3.3, Absolute Lymphs (auto) 0.95, Nucleated RBC % 0.4, Diff Path Review May , Platelet Estimate MOD INC, Hypochromasia 2+, Anisocytosis 2+, Macrocytosis 1+, Ovalocytes 1+, Sodium 133 L, Potassium 3.9, Chloride 105, Carbon Dioxide 23.0, Anion Gap 5, BUN 12, Creatinine 1.16 H, Estim Creat Clear Calc 55.17, Est GFR (MDRD) Af Amer 63, Est GFR (MDRD) Non-Af 52 L, BUN/Creatinine Ratio 10.3, Glucose 260 H, Calcium 8.3 L 05/06/24 06:42: POC Glucose 233 H Rhythm Strip Rhythm Strip: Sinus Rhythm Rate: 92 Ectopy: None Physical Exam Const alert, oriented x3, no apparent distress and well nourished General Appearance: cooperative and well developed HEENT normocephalic, head/scalp atraumatic, moist oral mucous membranes and oropharynx normal Eyes PERRL and EOMs intact bilaterally Neck no lymphadenopathy, supple and no JVD Lymph Lymphatic: no lymphadenopathy noted and no lymphedema noted Resp normal respiratory effort, normal air movement and clear to auscultation bilaterally Cardio regular rate, regular rhythm, S1 normal heart sound and S2 normal heart sound GI normal to inspection, nondistended, normoactive bowel sounds and soft to palpation Extremity normal capillary refill, no clubbing, cyanosis or edema and no calf tenderness General Extremity: no tenderness to palpation of joints or extremities Skin General Skin Exam: no breakdown Neuro CN's II-XII intact bilaterally, no focal motor deficits and no sensory deficits noted Motor Exam: strength 5/5 throughout and general weakness Psych thought process normal and cooperative Appearance: appropriate Assessment & Plan Assessment/Plan (1) Acute anemia: PLAN: Plan #Severe iron deficiency anemia * Hemoglobin is further down to 5.8 from 6.9 yesterday. Iron studies show severe iron deficiency anemia * EGD did not show any acute pathology and colonoscopy also showed nonbleeding diverticulosis with no stigmata of bleeding * On iron transfusions. Aspirin and Brilinta on hold. * GI on board. Patient cannot receive blood because history of his weakness. May benefit from capsule endoscopy on outpatient basis. #Hypertension: On lisinopril. IV hydralazine as needed #Elevated creatinine:Cr is 1.16. Was 0.92 yesterday. WIll monitor for improvement. Encourage oral hydration. #Hyperlipidemia: On statin #Heart failure with preserved ejection fraction: * Has some lower extremity edema. Has known EF of 70%. * May be due to heart failure also. * #CAD s/p stents: * Aspirin and Brilinta on hold due to severe anemia * Continue high intensity statin. * #Type 2 diabetes mellitus: on ISS> Accuchecks ACHS. On Lantus #DVT prophylaxis; SCDs Charges/Coding Visit Charges Inpatient E&M: 29178 Subs Hosp L3
[2024-05-06 11:52] LABS: Bedside Glucose 97 mg/dL (74-106)
--- NOTE | 2024-05-06 12:16 | CASEMGMT ---
Social Work Pt had wanted to complete POA documents. SW met w/pt, she is not certain who she wants to put as her healthare POA. SW reviewed the document w/pt. SW let pt know if she would like to complete POA/LW while she is here, to call SW, gave her SW's number. Otherwise, she can also come back after discharge, and SW gave here the SW dept number to set up an appt if she would like, after she has left the hospital. Pt states understanding. SW gave pt the blank forms, remains available should pt want to complete the documents while here. SANDRA Stone
--- NOTE | 2024-05-06 14:09 | CASEMGMT ---
BOYD CM into pt room, discussed possibility of needing IV iron at time of DC. Pt states lives close to hospital, would like to come in for OP IV if possible.
[2024-05-06 15:00] VITALS: BP 132/83; PULSE 100; RESP 18; TEMP 36.9; O2SAT 100
[2024-05-06 16:00] LABS: Pathologist Review Reviewed
[2024-05-06 16:11] LABS: Pathologist Review Reviewed
[2024-05-06 16:21] LABS: Bedside Glucose 104 mg/dL (74-106)
--- NOTE | 2024-05-06 16:27 | EX.PCM.PN.GI ---
Subjective Subjective Patient is status post EGD and colonoscopy without any signs or symptoms of GI bleeding. She did not admit to any menstrual bleeding or any blood in her urine. She did not see any blood coming from her GI tract. Objective Data Objective Data Vital Signs: Vital Signs Temp Pulse Resp BP Pulse Ox O2 Del Method 98.5 F 100 18 132/83 H 100 Room Air 05/06/24 15:00 05/06/24 15:00 05/06/24 15:00 05/06/24 15:00 05/06/24 15:00 05/06/24 15:00 Oxygen Delivery Method Room Air Weight: 155 lb 15.985 oz Body Mass Index (BMI) 24.4 Intake & Output: Intake and Output for Last 24 Hours 05/04/24 05/05/24 05/06/24 23:59 23:59 23:59 Intake Total 1909 3130.2 / 3130.2 990.2 / 990.2 Balance 1909 3130.2 / 3130.2 990.2 / 990.2 Lab / Micro Data 05/06/24 04:16 05/06/24 04:16 Labs: Laboratory Results - last 24 hr 05/03/24 14:43: Crossmatch See Detail 05/03/24 14:43: Crossmatch See Detail 05/04/24 05:08: Diff Path Review Reviewed 05/05/24 17:21: POC Glucose 294 H 05/05/24 23:22: POC Glucose 424 H 05/06/24 04:16: WBC 5.0, RBC 3.41 L, Hgb 5.8 L*, Hct 22.1 L, MCV 64.8 L, MCH 17.0 L, MCHC 26.2 L, RDW Std Deviation 49.5 H, RDW Coeff of Rachael 22.3 H, Plt Count 469 H, MPV 9.3, Immature Gran % (Auto) 1.000 H, Neut % (Auto) 64.9, Lymph % (Auto) 18.9 L, [place] % (Auto) 11.2 H, Eos % (Auto) 3.4, Baso % (Auto) 0.6, Absolute Neuts (auto) 3.3, Absolute Lymphs (auto) 0.95, Nucleated RBC % 0.4, Diff Path Review Reviewed, Platelet Estimate MOD INC, Hypochromasia 2+, Anisocytosis 2+, Macrocytosis 1+, Ovalocytes 1+, Sodium 133 L, Potassium 3.9, Chloride 105, Carbon Dioxide 23.0, Anion Gap 5, BUN 12, Creatinine 1.16 H, Estim Creat Clear Calc 55.17, Est GFR (MDRD) Af Amer 63, Est GFR (MDRD) Non-Af 52 L, BUN/Creatinine Ratio 10.3, Glucose 260 H, Calcium 8.3 L 05/06/24 06:42: POC Glucose 233 H 05/06/24 11:22: POC Glucose 97 05/06/24 15:55: POC Glucose 104 Rhythm Strip Rhythm Strip: Sinus Rhythm Rate: 92 Ectopy: None Physical Exam Const alert, oriented x3, no apparent distress and well nourished General Appearance: cooperative and well developed HEENT normocephalic, head/scalp atraumatic, moist oral mucous membranes and oropharynx normal Eyes PERRL and EOMs intact bilaterally Neck no lymphadenopathy, supple and no JVD Lymph Lymphatic: no lymphadenopathy noted and no lymphedema noted Resp normal respiratory effort, normal air movement and clear to auscultation bilaterally Cardio regular rate, regular rhythm, S1 normal heart sound and S2 normal heart sound GI normal to inspection, nondistended, normoactive bowel sounds and soft to palpation Extremity normal capillary refill, no clubbing, cyanosis or edema and no calf tenderness General Extremity: no tenderness to palpation of joints or extremities Skin General Skin Exam: no breakdown Neuro CN's II-XII intact bilaterally, no focal motor deficits and no sensory deficits noted Motor Exam: strength 5/5 throughout and general weakness Psych thought process normal and cooperative Appearance: appropriate Assessment & Plan Assessment/Plan (1) Acute anemia: (2) Thrombocytosis: (3) Hyponatremia: (4) Hyperglycemia: PLAN: Plan 54-year-old with history of CAD status post PTCA with stents with severe iron deficiency anemia -Suspected GI loss. Patient will undergo an upper endoscopy to evaluate upper GI tract with push enteroscopy. If this is negative then she will need to undergo colonoscopy. -Patient reports she had a colonoscopy about 2 years ago that she states was unremarkable -Suspect this has been a slow drop in hemoglobin over time given her relative asymptomatic state -Patient declines transfusions due to christian-Sikh -Agree with IV iron 200 mg daily x 3 days -Also recommending : Epoegen 40,000 units IV or subcutaneous daily, , then change dosing to 40,000 units weekly Iron: 200 mg iron sucrose intravenous daily for 10 days minimum and then consider conversion to oral iron supplemental on Vitamin C: 500 mg TID, except in renal failure (qD) Folate: 1 mg PO or IV qD Vitamin B12: consider IV vs. oral supplemental 05/05/2024-she had a normal upper endoscopy yesterday. She is for colonoscopy today. All questions and answered prior to the procedure. 05/06/2024. Hemoglobin is 5.8 which is down from 6.9. She received 20,000 units of IV Epogen. She has been on 200 mg IV of iron daily. She was also given folate 1 mg IV. Along with being given B12. I would add vitamin C 500 mg p.o. 3 times daily and continue to follow her blood counts as she is severely iron deficient.. We will set her up for outpatient capsule endoscopy. Charges/Coding Visit Charges Inpatient E&M: 67716 Subs Hosp L3
[2024-05-06] MEDS: 0.9% Normal Saline (100mL Bag) 100 ML 15 ML IV (21:30)
[2024-05-06] MEDS: 0.9% Saline Lock 10 ML Syringe IV ×2 (21:30→23:57)
[2024-05-06] MEDS: Insulin Glargine-YFGN 100 UNIT/ML Pen 40 UNIT SC (21:49)
[2024-05-06 21:53] VITALS: BP 128/82; PULSE 103; RESP 17; TEMP 36.9; O2SAT 93
[2024-05-06 22:16] LABS: Bedside Glucose 159 mg/dL (74-106)
[2024-05-06 23:57] VITALS: BP 133/78; PULSE 107; RESP 16; TEMP 36.9; O2SAT 98
[2024-05-07] MEDS: MELATONIN 3 MG TABLET PO (00:09)
[2024-05-07 06:01] VITALS: BP 123/67; PULSE 111; RESP 16; TEMP 37.3; O2SAT 92
[2024-05-07 07:23] LABS: Absolute Lymphocyte Count 1.06 X10^3/uL (0.83-4.51); Absolute Neutrophil Count 4.1 X10^3/uL (2.0-7.7); Basophil# 0.04 X10^3/uL; Basophil% 0.6 % (0-1); Eosinophil# 0.26 X10^3/uL; Eosinophils% 4.2 % (0-5); Hematocrit 22.4 % (37-47); Lymphocyte # 1.06 X10^3/ul (0.83-4.51); Lymphocyte % 17.1 % (19-41); Mean Corp Hgb Conc 26.8 g/dL (32-36); Mean Corpuscular Hgb 17.6 pg (27.0-32.0); Mean Corpuscular Volume 65.9 fL (81-99); Mean Platelet Vol. 9.6 fl (6.2-12.0); Monocyte# 0.65 X10^3/uL; Monocyte% 10.5 % (0-10); Neutrophil % 66.1 % (47-70); POSITIVE MORPHOLOGY YES; Platelet Count 473 K/mm3 (150-450); RBC Distribution Width CV 22.5 % (11.6-14.6); RBC Distribution Width SD 48.5 fl (35.1-43.9); White Blood Count 6.2 K/mm3 (4.4-11.0)
[2024-05-07 07:30] LABS: Differential Indicated SCAN CRITERIA MET
[2024-05-07] MEDS: Insulin Lispro 100 UNIT/ML INSULN.PEN SC ×2 (07:46→12:00)
[2024-05-07] MEDS: Insulin Lispro 100 UNIT/ML INSULN.PEN 10 UNIT SC ×2 (07:46→12:00)
[2024-05-07 07:48] LABS: Anion Gap 6 (5-15); BUN 12 mg/dL (7-18); BUN/Creat Ratio 11.3 RATIO (10-20); Chloride 105 mmol/L (98-107); Creatinine, Serum 1.06 mg/dL (0.55-1.02); EST Glomerular Filtration Rate 58 mL/min (>60); Est Glom Filt Rate - Afr Amer 70 mL/min (>60); Estimated Creatinine Clearance 60.37 ml/min; Glucose 299 mg/dL (74-106); Potassium 4.2 mmol/L (3.5-5.1); Sodium Level 134 mmol/L (136-145)
[2024-05-07 08:00] VITALS: BP 127/81; PULSE 104; RESP 18; TEMP 36.8; O2SAT 99
[2024-05-07 08:12] VITALS: O2SAT 97
[2024-05-07 08:13] LABS: Bedside Glucose 268 mg/dL (74-106)
[2024-05-07 09:17] LABS: Anisocytosis 2+
[2024-05-07] MEDS: Pantoprazole Sodium 40 MG in 0.9% Normal Saline (100mL MB+) 100 ML 330 MG IV (09:33)
[2024-05-07] MEDS: Lisinopril 40 MG Tablet PO (09:33)
[2024-05-07] MEDS: Folic Acid 1 MG in 0.9% Normal Saline (50mL Bag) 50 ML 200 MG IV (10:14)
--- NOTE | 2024-05-07 10:53 | PN_ITS ---
Subjective Subjective Patient seen and examined. SHe had no complaints. She has been ambulating around the hallways. Hb today is 6. Review of systems is otherwise negative. Objective Data Objective Data Vital Signs: Vital Signs Temp Pulse Resp BP Pulse Ox O2 Del Method 98.2 F 104 H 18 127/81 H 97 Room Air 05/07/24 08:00 05/07/24 08:00 05/07/24 08:00 05/07/24 08:00 05/07/24 08:12 05/07/24 08:12 Oxygen Delivery Method Room Air Weight: 155 lb 15.985 oz Body Mass Index (BMI) 24.4 Intake & Output: Intake and Output for Last 24 Hours 05/05/24 05/06/24 05/07/24 23:59 23:59 23:59 Intake Total 3130.2 / 3130.2 1550.2 / 1550.2 560.2 / 560.2 Balance 3130.2 / 3130.2 1550.2 / 1550.2 560.2 / 560.2 Lab / Micro Data 05/07/24 06:51 05/07/24 06:51 Labs: Laboratory Results - last 24 hr 05/03/24 14:43: Crossmatch See Detail 05/03/24 14:43: Crossmatch See Detail 05/04/24 05:08: Diff Path Review Reviewed 05/06/24 04:16: Diff Path Review Reviewed 05/06/24 11:22: POC Glucose 97 05/06/24 15:55: POC Glucose 104 05/06/24 21:25: POC Glucose 159 H 05/07/24 06:51: WBC 6.2, RBC 3.40 L, Hgb 6.0 L*, Hct 22.4 L, MCV 65.9 L, MCH 17.6 L, MCHC 26.8 L, RDW Std Deviation 48.5 H, RDW Coeff of Rachael 22.5 H, Plt Count 473 H, MPV 9.6, Immature Gran % (Auto) 1.500 H, Neut % (Auto) 66.1, Lymph % (Auto) 17.1 L, [place] % (Auto) 10.5 H, Eos % (Auto) 4.2, Baso % (Auto) 0.6, Absolute Neuts (auto) 4.1, Absolute Lymphs (auto) 1.06, Nucleated RBC % 1.0, Differential Comment COMMENT, Diff Path Review May foll, Anisocytosis 2+, Sodium 134 L, Potassium 4.2, Chloride 105, Carbon Dioxide 23.0, Anion Gap 6, BUN 12, C reatinine 1.06 H, Estim Creat Clear Calc 60.37, Est GFR (MDRD) Af Amer 70, Est GFR (MDRD) Non-Af 58 L, BUN/Creatinine Ratio 11.3, Glucose 299 H, Calcium 8.0 L 05/07/24 07:43: POC Glucose 268 H Rhythm Strip Rhythm Strip: Sinus Rhythm Rate: 92 Ectopy: None Physical Exam Const alert, oriented x3, no apparent distress, average body habitus and well nourished General Appearance: cooperative and well developed HEENT normocephalic, head/scalp atraumatic, hearing grossly normal bilaterally, moist oral mucous membranes and oropharynx normal Eyes PERRL and EOMs intact bilaterally Eyes Narrative: Markedly pale conjunctiva bilaterally, mild periorbital edema Neck no lymphadenopathy, supple and no JVD Lymph Lymphatic: no lymphadenopathy noted and no lymphedema noted Resp normal respiratory effort, normal air movement, no retractions, no use of accessory muscles and clear to auscultation bilaterally Auscultation: Negative for rales, rhonchi or wheezes Cardio regular rate, regular rhythm, S1 normal heart sound, S2 normal heart sound, no murmurs, no rub, no gallops and no clicks GI normal to inspection, nondistended, normoactive bowel sounds, soft to palpation and non-tender Extremity normal capillary refill and no calf tenderness Extremity Narrative: Trace bilateral lower extremity edema, no cyanosis or clubbing General Extremity: no tenderness to palpation of joints or extremities Skin General Skin Exam: no breakdown Neuro oriented x3, CN's II-XII intact bilaterally, moves all extremities, no focal motor deficits and no sensory deficits noted Speech: speech normal Motor Exam: strength 5/5 throughout and general weakness Psych thought process normal, cooperative and affect normal Appearance: appropriate Assessment & Plan Assessment/Plan (1) Acute anemia: PLAN: Plan #Severe iron deficiency anemia * Hb toay is slightly up to 6, from 5.8 yesterday. Iron studies show severe iron deficiency anemia * EGD did not show any acute pathology and colonoscopy also showed nonbleeding diverticulosis with no stigmata of bleeding * On iron transfusions. Aspirin and Brilinta on hold. * GI on board. Patient cannot receive blood because history of his weakness. May benefit from capsule endoscopy on outpatient basis. * Has received Epogen during this admission. GI. Also on folate and vitamin B12. Vitamin C added on. * To be set up for outpatient capsule endoscopy per GI. #Hypertension: On lisinopril. IV hydralazine as needed #Elevated creatinine:Cr is 1.06 today, down from 1.19 yesterday. WIll monitor for improvement. Encourage oral hydration. #Hyperlipidemia: On statin #Heart failure with preserved ejection fraction: * Has some lower extremity edema. Has known EF of 70%. * May be due to heart failure also. * #CAD s/p stents: * Aspirin and Brilinta on hold due to severe anemia * Continue high intensity statin. * #Type 2 diabetes mellitus: on ISS. Accuchecks ACHS. On Lantus #DVT prophylaxis; SCDs Disposition: Anticipate DC home when hemoglobin is up to around 7. Charges/Coding Visit Charges Inpatient E&M: 91373 Subs Hosp L2
[2024-05-07 12:25] LABS: Bedside Glucose 152 mg/dL (74-106)
[2024-05-07 13:21] LABS: Pathologist Review Reviewed
--- NOTE | 2024-05-07 14:41 | CASEMGMT ---
RN notified BOYD MARIE pt would like to DC today. BOYD MARIE reached out to hospitalist about DC plans and recommendations for IV infusion for Iron at DC. Hospitalist states specialist that recommended iron at DC will need to order. Reached out to GI Doctor, he will send an order via fax for OP IV infusion for iron. Patient agreeable to OP infusion and would like morning appointments as she works 3rd shift. BOYD MARIE called infusion center to schedule appointments. They state different insurances will only accept certain iron, will need to speak with pharmacy for recommendations of what type of iron to order. Pt insurance does not kick in until 05/18/24. Michelle in pharmacy said if Pt is SP, cheapest form is Ferrlecit, which is $175.55. BOYD MARIE notified patient of cost for out of pocket. Pt is going to think about OP infusion and get back to BOYD MARIE. BOYD MARIE reached out to Medical Physiologist, states patient can go home with oral medications since cost is an issue. BOYD MARIE notified patient. Denies further needs at this time.
[2024-05-07 14:48] VITALS: BP 121/81; PULSE 107; RESP 18; TEMP 37.1; O2SAT 100
--- NOTE | 2024-05-07 15:19 | DCINST_ITS ---
Discharge Instructions Diet Discharge Diet: Low fat / Low cholesterol DC O2, CPAP, BIPAP needs Home O2 Discharge instructions: No Dressing / Incision Discharge Activity: Return to Normal Activity Weight Bearing Status: Weight bearing as tolerated Dressing / Incision Call your doctor if you observe: Fever of 101 or Higher, Shortness of breath, Dizziness, Swelling in the ankles and Chest pain Follow Up Care Test Results: Test results from this visit will be discussed in further detail at your follow- up appointment, if applicable. Discharge Plan Admission Admit Date/Time: 05/03/24 14:36 Primary Reason for Your Visit: acute on chronic anemia Attending Provider: Taryn Boone Primary Care Provider: Gerber Pina Consulting Providers: Rony Milligan; Chayito Maravilla; Chase Logan Instructions Patient Instructions: Anemia Discharge Orders/Prescriptions Prescriptions: New pantoprazole [Protonix] 40 mg tablet,delayed release (DR/EC) 40 mg PO DAILY Qty: 30 2RF ferrous sulfate 325 mg (65 mg iron) tablet,delayed release (DR/EC) 325 mg PO TID Qty: 90 5RF ascorbic acid (vitamin C) [Vitamin C] 500 mg tablet 500 mg PO TID Qty: 90 2RF docusate sodium [Colace] 100 mg capsule 100 mg PO BID Qty: 60 3RF Continued lisinopril 10 mg tablet 10 mg PO DAILY Qty: 90 3RF acetaminophen 325 mg Tablet 650 mg PO Q6H PRN PRN (Reason: Pain 1-10 Or Fever >100.7) Qty: 0 0RF (DME) pen needle, diabetic 29 gauge x 1/2 needle See Rx Instructions .Route Qty: 100 0RF Rx Instructions: As directed Discontinued aspirin 81 mg Tablet,Delayed Release (Dr/Ec) 81 mg PO BREAKFAST Qty: 0 0RF Brilinta 90 mg tablet 90 mg PO BID Qty: 60 12RF Referrals / Follow Up: Gerber Pina DO [Primary Care Provider] - Within 1 Week Rony Milligan DO [Med Staff - Active Staff] - Within 2 Weeks Disposition Disposition (needs filled in before D/C Order can be placed): Home, Self Care
--- NOTE | 2024-05-07 15:21 | DS.PCM_ITS ---
Providers Date of Admission: 05/03/24 Date of Discharge: 05/07/24 Primary Care Physician: Dr. Gerber Pina, DO Consultations 05/03/24 16:55 Consult: Gastroenterology Routine Consulting Provider: ChelRony Reason for Consult: GI bleed EMERGENT Consult: No MD Notified: Yes Date Notified: 05/03/24 Time Notified: 14:38 Method of Notification: Text Reason For Visit: ACUTE MICROCYTIC ANEMIA Diagnosis Discharge Diagnosis (1) Acute anemia: Status: Acute Code(s): D64.9 - Anemia, unspecified Plan #Severe iron deficiency anemia * Hb toay is slightly up to 6, from 5.8 yesterday. Iron studies show severe iron deficiency anemia * EGD did not show any acute pathology and colonoscopy also showed nonbleeding diverticulosis with no stigmata of bleeding * On iron transfusions. Aspirin and Brilinta on hold. * GI on board. Patient cannot receive blood because history of his weakness. May benefit from capsule endoscopy on outpatient basis. * Has received Epogen during this admission. GI. Also on folate and vitamin B12. Vitamin C added on. * To be set up for outpatient capsule endoscopy per GI. #Hypertension: On lisinopril. IV hydralazine as needed #Elevated creatinine:Cr is 1.06 today, down from 1.19 yesterday. WIll monitor for improvement. Encourage oral hydration. #Hyperlipidemia: On statin #Heart failure with preserved ejection fraction: * Has some lower extremity edema. Has known EF of 70%. * May be due to heart failure also. * #CAD s/p stents: * Aspirin and Brilinta on hold due to severe anemia * Continue high intensity statin. * #Type 2 diabetes mellitus: on ISS. Accuchecks ACHS. On Lantus #DVT prophylaxis; SCDs Disposition: Anticipate DC home when hemoglobin is up to around 7. Medications at Discharge Home Medications acetaminophen 325 mg tablet 650 mg (2 x 325 mg) PO Q6H PRN PRN Pain 1-10 Or Fever >100.7 #0 tabs 09/02/22 pen needle, diabetic 29 gauge x 1/2 #100 ea 09/02/22 lisinopril 10 mg tablet 10 mg PO DAILY #90 tabs 10/11/22 ascorbic acid (vitamin C) 500 mg tablet (Vitamin C) 500 mg PO TID #90 tabs 05/07/24 docusate sodium 100 mg capsule (Colace) 100 mg PO BID #60 caps 05/07/24 ferrous sulfate 325 mg (65 mg iron) tablet,delayed release 325 mg PO TID #90 tabs 05/07/24 pantoprazole 40 mg tablet,delayed release (Protonix) 40 mg PO DAILY #30 tabs 05/07/24 Hospital Course Operations None Procedures Colonoscopy and EGD Summary of Care Provided Minutes Spent on Discharge: 47 Hospital Course: Patient is a 54-year-old female with a past medical history as outlined was admitted through the ED on 05/03/2024 after being referred to the ED by her PCP at the [facility] for abnormal hemoglobin. She had been seen at her primary care physician's office on outpatient basis a week prior to admission and was found to have bilateral lower extremity edema. She had not been compliant with her home meds. Labs were done and she was subsequently called that her hemoglobin was low so she come to the ED. She felt that her lower extremity swelling had improved. On admission hemoglobin was 6.7 and she had thrombocytosis with platelets of 603 thousand. Chemistry was significant for sodium of 130. Iron studies showed severe iron deficiency anemia with total iron of 16, iron saturation of 3.4 and ferritin of 5 as well as elevated TIBC at 474. Liver enzyme was normal. Chest x-ray showed mild cardiomegaly. Patient was Zoroastrian and so did not accept blood. Gastroenterology was consulted and she was started on IV pantoprazole and started on IV iron infusion. EGD showed normal esophagus with medium size hiatal hernia and normal duodenum and jejunum. Colonoscopy showed diverticulosis in the rectosigmoid and sigmoid colon with no evidence of bleeding. Patient hemoglobin improved to 6.9 but subsequently dropped to 5.8. She was given IV Epogen. GI also I refused to this. Hemoglobin came up to 6. Patient again was not amenable to receiving transfusion because of her Zoroastrian belief. GI recommended capsule endoscopy on outpatient basis. She was to be set up for outpatient IV iron infusions but her insurance would only check in on May 18, 2024. Per GI recommendations she was therefore discharged home on p.o. ferrous sulfate 325 mg 3 times daily as well as p.o. vitamin C 500 mg 3 times daily and p.o. Colace 100 mg twice daily. She is to follow-up with her primary care doctor within 1 to 2 weeks and was also referred to gastroenterology on outpatient basis for monitoring of her hemoglobin and for capsule endoscopy to be scheduled. Patient was counseled that she would need close follow-up on outpatient basis in light of her low hemoglobin. Patient seen and examined prior to discharge. She had no complaints. She had been walking the halls and felt well. She denied any lightheadedness or dizziness, palpitations or any other symptoms. Review of systems otherwise negative. Labs and vitals reviewed. Home medication reviewed and reconciled. Of note her aspirin and Brilinta were discontinued in light of the severe anemia. She was also discharged on p.o. pantoprazole 40 mg daily. Physical Exam Const alert, oriented x3, no apparent distress, average body habitus and well nourished General Appearance: cooperative, comfortable, well kempt and well developed Orientation / Consciousness: awake Exam Limitations: no limitations HEENT normocephalic, head/scalp atraumatic, hearing grossly normal bilaterally, moist oral mucous membranes and oropharynx normal Mouth: oral and palatal mucosa normal Eyes PERRL and EOMs intact bilaterally Eyes Narrative: Markedly pale conjunctiva bilaterally, mild periorbital edema Neck no lymphadenopathy, supple and no JVD Neck Narrative: Lymph Lymphatic: no lymphadenopathy noted and no lymphedema noted Resp normal respiratory effort, normal air movement, no retractions, no use of accessory muscles and clear to auscultation bilaterally Cardio regular rate, regular rhythm, S1 normal heart sound, S2 normal heart sound, no murmurs, no rub, no gallops and no clicks GI normal to inspection, nondistended, normoactive bowel sounds, soft to palpation and non-tender Extremity normal capillary refill, no clubbing, cyanosis or edema and no calf tenderness Extremity Narrative: Trace bilateral lower extremity edema General Extremity: no tenderness to palpation of joints or extremities Skin General Skin Exam: no breakdown Neuro oriented x3, CN's II-XII intact bilaterally, moves all extremities, no focal motor deficits and no sensory deficits noted Sensorium / Orientation: awake and alert Speech: speech normal Motor Exam: strength 5/5 throughout and general weakness Psych thought process normal, cooperative and affect normal Appearance: appropriate Weight / BMI Weight Weight: 155 lb 15.985 oz Body Mass Index (BMI) 24.4 ABG / Lab / Microbiology Data 05/07/24 06:51 05/07/24 06:51 Laboratory: Laboratory Results - last 24 hr 05/04/24 05:08: Diff Path Review Reviewed 05/06/24 04:16: Diff Path Review Reviewed 05/06/24 15:55: POC Glucose 104 05/06/24 21:25: POC Glucose 159 H 05/07/24 06:51: WBC 6.2, RBC 3.40 L, Hgb 6.0 L*, Hct 22.4 L, MCV 65.9 L, MCH 17.6 L, MCHC 26.8 L, RDW Std Deviation 48.5 H, RDW Coeff of Rachael 22.5 H, Plt Count 473 H, MPV 9.6, Immature Gran % (Auto) 1.500 H, Neut % (Auto) 66.1, Lymph % (Auto) 17.1 L, [place] % (Auto) 10.5 H, Eos % (Auto) 4.2, Baso % (Auto) 0.6, Absolute Neuts (auto) 4.1, Absolute Lymphs (auto) 1.06, Nucleated RBC % 1.0, Differential Comment COMMENT, Diff Path Review Reviewed, Anisocytosis 2+, Sodium 134 L, Potassium 4.2, Chloride 105, Carbon Dioxide 23.0, Anion Gap 6, BUN 12, C reatinine 1.06 H, Estim Creat Clear Calc 60.37, Est GFR (MDRD) Af Amer 70, Est GFR (MDRD) Non-Af 58 L, BUN/Creatinine Ratio 11.3, Glucose 299 H, Calcium 8.0 L 05/07/24 07:43: POC Glucose 268 H 05/07/24 11:57: POC Glucose 152 H D/C Instructions Discharge Diet: Low fat / Low cholesterol Discharge Activity: Return to Normal Activity Weight Bearing Status: Weight bearing as tolerated Call your doctor if you observe: Fever of 101 or Higher, Shortness of breath, Dizziness, Swelling in the ankles and Chest pain DC O2, CPAP, BIPAP Needs Home O2 Discharge instructions: No Meaningful Use Info Meaningful Use Meaningful Use Diagnoses (Choose all that apply): None applicable Ischemic Stroke Statin Dosing Therapy Reference: STATIN DOSE THERAPY REFERENCE: * Patients > 75 years receive moderate or high dose statin therapy. * Patients 75 years or YOUNGER should receive HIGH intensity statin dose unless contraindicated. You will be required to document reason for non-treatment if statin daily dose does not meet guidelines. HIGH DOSE STATIN THERAPY DAILY Atorvastatin > than or = to 40 mg Rosuvastatin > than or = to 20 mg Amlodipine + Atorvastatin > than or = to 2.5/40 mg Ezetimibe + Simvastatin 10/80 mg Simvastatin 80mg Discharge Plan Admission Admit Date/Time: 05/03/24 14:36 Primary Reason for Your Visit: acute on chronic anemia Attending Provider: Taryn Boone Primary Care Provider: Gerber Pina Consulting Providers: Rony Milligan; Chayito Maravilla; Chase Logan Instructions Forms: Work Excuse, Work / School Excuse Patient Instructions: Anemia Discharge Orders/Prescriptions Prescriptions: New pantoprazole [Protonix] 40 mg tablet,delayed release (DR/EC) 40 mg PO DAILY Qty: 30 2RF ferrous sulfate 325 mg (65 mg iron) tablet,delayed release (DR/EC) 325 mg PO TID Qty: 90 5RF ascorbic acid (vitamin C) [Vitamin C] 500 mg tablet 500 mg PO TID Qty: 90 2RF docusate sodium [Colace] 100 mg capsule 100 mg PO BID Qty: 60 3RF Continued lisinopril 10 mg tablet 10 mg PO DAILY Qty: 90 3RF acetaminophen 325 mg Tablet 650 mg PO Q6H PRN PRN (Reason: Pain 1-10 Or Fever >100.7) Qty: 0 0RF (DME) pen needle, diabetic 29 gauge x 1/2 needle See Rx Instructions .Route Qty: 100 0RF Rx Instructions: As directed Discontinued aspirin 81 mg Tablet,Delayed Release (Dr/Ec) 81 mg PO BREAKFAST Qty: 0 0RF Brilinta 90 mg tablet 90 mg PO BID Qty: 60 12RF Referrals / Follow Up: Gerber Pina DO [Primary Care Provider] - Within 1 Week Rony Milligan DO [Med Staff - Active Staff] - Within 2 Weeks Disposition Disposition (needs filled in before D/C Order can be placed): Home, Self Care Charges/Coding Visit Charges Inpatient E&M: 58945 Disch Hosp >30min
--- NOTE | 2024-05-07 16:48 | CASEMGMT ---
Social Work- Pt referred to [facility]. Pt makes $60k/year and will have insurance begining 05/18/24. Pt reports no need for resources at this time. Pt is not eligible for financial assistance at this time. KODAK Lyle
--- NOTE | 2024-05-07 18:42 | PN.GI_ITS ---
Subjective Subjective Patient is doing well. She denies any abdominal pain is tolerating a diet. Objective Data Objective Data Vital Signs: Vital Signs Temp Pulse Resp BP Pulse Ox O2 Del Method 98.7 F 107 H 18 121/81 H 100 Room Air 05/07/24 14:48 05/07/24 14:48 05/07/24 14:48 05/07/24 14:48 05/07/24 14:48 05/07/24 14:48 Oxygen Delivery Method Room Air Weight: 155 lb 15.985 oz Body Mass Index (BMI) 24.4 Intake & Output: Intake and Output for Last 24 Hours 05/05/24 05/06/24 05/07/24 23:59 23:59 23:59 Intake Total 3130.2 / 3130.2 1550.2 / 1550.2 560.2 / 560.2 Balance 3130.2 / 3130.2 1550.2 / 1550.2 560.2 / 560.2 Lab / Micro Data 05/07/24 06:51 05/07/24 06:51 Labs: Laboratory Results - last 24 hr 05/06/24 21:25: POC Glucose 159 H 05/07/24 06:51: WBC 6.2, RBC 3.40 L, Hgb 6.0 L*, Hct 22.4 L, MCV 65.9 L, MCH 17.6 L, MCHC 26.8 L, RDW Std Deviation 48.5 H, RDW Coeff of Rachael 22.5 H, Plt Count 473 H, MPV 9.6, Immature Gran % (Auto) 1.500 H, Neut % (Auto) 66.1, Lymph % (Auto) 17.1 L, [place] % (Auto) 10.5 H, Eos % (Auto) 4.2, Baso % (Auto) 0.6, Absolute Neuts (auto) 4.1, Absolute Lymphs (auto) 1.06, Nucleated RBC % 1.0, Differential Comment COMMENT, Diff Path Review Reviewed, Anisocytosis 2+, Sodium 134 L, Potassium 4.2, Chloride 105, Carbon Dioxide 23.0, Anion Gap 6, BUN 12, C reatinine 1.06 H, Estim Creat Clear Calc 60.37, Est GFR (MDRD) Af Amer 70, Est GFR (MDRD) Non-Af 58 L, BUN/Creatinine Ratio 11.3, Glucose 299 H, Calcium 8.0 L 05/07/24 07:43: POC Glucose 268 H 05/07/24 11:57: POC Glucose 152 H Rhythm Strip Rhythm Strip: Sinus Rhythm Rate: 92 Ectopy: None Physical Exam Const alert, oriented x3, no apparent distress, average body habitus and well nourished General Appearance: cooperative, comfortable, well kempt and well developed Orientation / Consciousness: awake Exam Limitations: no limitations HEENT normocephalic, head/scalp atraumatic, hearing grossly normal bilaterally, moist oral mucous membranes and oropharynx normal Mouth: oral and palatal mucosa normal Eyes PERRL and EOMs intact bilaterally Eyes Narrative: Markedly pale conjunctiva bilaterally, mild periorbital edema Neck no lymphadenopathy, supple and no JVD Neck Narrative: Lymph Lymphatic: no lymphadenopathy noted and no lymphedema noted Resp normal respiratory effort, normal air movement, no retractions, no use of accessory muscles and clear to auscultation bilaterally Cardio regular rate, regular rhythm, S1 normal heart sound, S2 normal heart sound, no murmurs, no rub, no gallops and no clicks GI normal to inspection, nondistended, normoactive bowel sounds, soft to palpation and non-tender Extremity normal capillary refill, no clubbing, cyanosis or edema and no calf tenderness Extremity Narrative: Trace bilateral lower extremity edema General Extremity: no tenderness to palpation of joints or extremities Skin General Skin Exam: no breakdown Neuro oriented x3, CN's II-XII intact bilaterally, moves all extremities, no focal motor deficits and no sensory deficits noted Sensorium / Orientation: awake and alert Speech: speech normal Motor Exam: strength 5/5 throughout and general weakness Psych thought process normal, cooperative and affect normal Appearance: appropriate Assessment & Plan Assessment/Plan (1) Acute anemia: PLAN: Plan #Severe iron deficiency anemia * Hb toay is slightly up to 6, from 5.8 yesterday. Iron studies show severe iron deficiency anemia * EGD did not show any acute pathology and colonoscopy also showed nonbleeding diverticulosis with no stigmata of bleeding * On iron transfusions. Aspirin and Brilinta on hold. * Patient cannot receive blood because history of his weakness. May benefit from capsule endoscopy on outpatient basis. * Has received Epogen during this admission. Also on folate and vitamin B12. Vitamin C added on. * To be set up for outpatient capsule endoscopy Charges/Coding Visit Charges Inpatient E&M: 39525 Subs Hosp L3
== END 2024-05-07 16:36 | disposition home or self-care (01) | DRG 812 ==
LOC: ED 14:43 → MS3 16:09
PROVIDERS: Family Medicine; Internal Medicine Gastroenterology; Admitting Provider Internal Medicine; Emergency Provider Emergency Medicine; PCP Student in an Organized Health Care Education/Training Program; Visit Provider Student in an Organized Health Care Education/Training Program
PROC: 0DJ08ZZ Inspection of Upper Intestinal Tract, Via Natural or Artificial Opening Endoscopic (ICD-10-PCS; CPT 43235; principal; 2024-05-04 09:30)
PROC: 0DJD8ZZ Inspection of Lower Intestinal Tract, Via Natural or Artificial Opening Endoscopic (ICD-10-PCS; CPT 45378; principal; 2024-05-05 09:00)
DX: D50.9 Iron deficiency anemia, unspecified (principal); E87.1 Hypo-osmolality and hyponatremia; I50.32 Chronic diastolic (congestive) heart failure; I11.0 Hypertensive heart disease with heart failure; E11.65 Type 2 diabetes mellitus with hyperglycemia; E78.5 Hyperlipidemia, unspecified; D75.838 Other thrombocytosis; K57.30 Diverticulosis of large intestine without perforation or abscess without bleeding; K44.9 Diaphragmatic hernia without obstruction or gangrene; I25.10 Atherosclerotic heart disease of native coronary artery without angina pectoris; I25.2 Old myocardial infarction; R79.89 Other specified abnormal findings of blood chemistry; Z79.82 Long term (current) use of aspirin; Z79.02 Long term (current) use of antithrombotics/antiplatelets; Z79.899 Other long term (current) drug therapy; Z95.5 Presence of coronary angioplasty implant and graft
CPT/HCPCS: 36415; 71045; 80048; 80053; 81025; 82728; 82962; 83540; 83550; 84484; 85014; 85018; 85025; 85045; 85610; 86850; 86900; 86901; 90656; 93005; 94668; 99285; A4216; J2405; J2916; J3420; Q5106

== ENCOUNTER → 2024-11-22 | Outpatient (CLI) | payer SELFPAY ==
[2024-11-22 11:33] LABS: Anion Gap 11 (5-15); BUN 25 mg/dL (4-19); BUN/Creat Ratio 17.5 RATIO (10-20); Calcium,Total 9.5 mg/dL (7.6-11.0); Carbon Dioxide 26.9 mmol/L (21.0-32.0); Chloride 92 mmol/L (98-108); Glucose 349 mg/dL (70-99); Potassium 4.2 mmol/L (3.3-5.1)
== END | disposition home or self-care (01) ==
LOC: LAB 09:15
PROVIDERS: PCP Student in an Organized Health Care Education/Training Program; Referring Provider Student in an Organized Health Care Education/Training Program; Visit Provider Student in an Organized Health Care Education/Training Program
DX: I11.0 Hypertensive heart disease with heart failure (principal); I50.20 Unspecified systolic (congestive) heart failure
CPT/HCPCS: 36415; 80048

== ENCOUNTER 2025-03-30 07:05 | Emergency (ER) | payer SELFPAY ==
[2025-03-30] VITALS (11 sets, daily range): BP systolic 109–230; BP diastolic 70–157; PULSE 86–130; RESP 11–19; TEMP 36.6–38.3; O2SAT 97–100; BMI 23.8
--- NOTE | 2025-03-30 07:14 | EX.ED.DYSGE1 ---
HPI History of Present Illness Chief Complaint: Unresponsive [facility] Medical History Acute anemia Chronic anticoagulation History of CAD (coronary artery disease) History of CHF (congestive heart failure) Hyperglycemia due to diabetes mellitus Transfusion of blood during current hospitalisation Anemia Hypertension Chest pain Hyperglycemia Essential hypertension Atherosclerotic heart disease of [place] coronary artery without angina pectoris History of CAD (coronary artery disease) Myocardial infarct Type 2 diabetes mellitus Home Medications ?Medication ?Instructions ?Recorded ?Last Taken ?Type acetaminophen 325 mg tablet 650 mg (2 x 325 mg) PO Q6H PRN PRN 09/02/22 Unknown Rx Pain 1-10 Or Fever >100.7 #0 tabs pen needle, diabetic 29 gauge x #100 ea 09/02/22 Unknown Rx 1/2 ascorbic acid (vitamin C) 500 mg 500 mg PO TID #90 tabs 05/07/24 Unknown Rx tablet (Vitamin C) ferrous sulfate 325 mg (65 mg 325 mg PO TID #90 tabs 05/07/24 Unknown Rx iron) tablet,delayed release pantoprazole 40 mg tablet,delayed 40 mg PO DAILY #30 tabs 05/07/24 Unknown Rx release (Protonix) atorvastatin 40 mg tablet (Lipitor) 40 mg PO QHS #30 tabs 11/22/24 Unknown Rx carvedilol 3.125 mg tablet 3.125 mg PO BID #60 tabs 11/22/24 Unknown Rx clopidogrel 75 mg tablet (Plavix) 75 mg PO QDAY #30 tabs 11/22/24 Unknown Rx furosemide 40 mg tablet (Lasix) 40 mg PO QAM 11/22/24 Unknown History insulin glargine 100 unit/mL (3 10 unit subcut BID 11/22/24 Unknown History mL) subcutaneous pen (Basaglar KwikPen U-100 Insulin) spironolactone 25 mg tablet 25 mg PO QDAY #30 tabs 11/22/24 Unknown Rx zinc gluconate 50 mg tablet 50 mg PO QDAY 11/22/24 Unknown History Allergy/AdvReac Type Severity Reaction Status Date / Time latex Allergy Rash Verified 03/30/25 07:11 morphine AdvReac Nausea Verified 03/30/25 07:11 Family History Other Hypertension Surgical History Stented coronary artery (09/01/22) History of coronary artery stent placement (~08/24/20) Social History Smoking Status: Never smoker alcohol intake: never substance use type: does not use caffeine: No EXAM Physical Exam Const Vital Signs: 03/30/25 07:06 03/30/25 07:06 03/30/25 08:05 Temperature 97.9 F Temperature Source Temporal Pulse Rate 86 87 Respiratory Rate 19 H 11 L Respiratory Effort Normal Respiratory Pattern Normal Blood Pressure 218/106 H Blood Pressure Mean 143 Pulse Ox 98 98 Oxygen Delivery Method Fraction of Inspired Oxygen (FIO2) 03/30/25 08:46 03/30/25 09:05 03/30/25 09:05 Temperature Temperature Source Pulse Rate 126 H 130 H Respiratory Rate 14 13 Respiratory Effort Respiratory Pattern Normal Blood Pressure 230/157 H Blood Pressure Mean 181 Pulse Ox 98 97 Oxygen Delivery Method Mechanical Ventilator Fraction of Inspired Oxygen (FIO2) 30 30 03/30/25 09:50 03/30/25 10:00 03/30/25 11:00 Temperature Temperature Source Pulse Rate 121 H 128 H 107 H Respiratory Rate 14 19 H 16 Respiratory Effort Respiratory Pattern Normal Blood Pressure 199/132 H 132/92 H Blood Pressure Mean 154 105 Pulse Ox 100 100 100 Oxygen Delivery Method Mechanical Ventilator Mechanical Ventilator Fraction of Inspired Oxygen (FIO2) 03/30/25 11:39 03/30/25 12:14 Temperature 101 F H Temperature Source Core Pulse Rate 111 H 109 H Respiratory Rate 13 16 Respiratory Effort Respiratory Pattern Blood Pressure 140/77 H 136/72 H Blood Pressure Mean 98 93 Pulse Ox 100 100 Oxygen Delivery Method Mechanical Ventilator Mechanical Ventilator Fraction of Inspired Oxygen (FIO2) MDM MDM MDM Narrative Medical decision making narrative: HISTORY OF PRESENT ILLNESS: Chief complaint: Altered mental status 54 F hx of CAD s/p stent, HLD, HTN, CHF presents altered mental status. History is limited secondary to acuity of patient's condition. Per EMS patient was found unresponsive with breathing. She is found at work. 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 There is report of fecal matter found around her. Unknown downtime. REVIEW OF SYSTEMS: Unable to obtain reliable review of system secondary to acuity of condition PHYSICAL EXAM: Nursing triage notes reviewed, Vital signs reviewed Constitutional: please see mdm HENT: MMM Eyes: Pupils equal round and reactive to light, Extraocular muscles intact Neck: No stridor, no JVD, full neck ROM Lungs: Clear to auscultation, Heart: Regular rate and rhythm, No murmurs, No rubs and No gallops, 2+ distal pulses (radial, femoral, posterior tibial) in all extremities Abdomen: Soft, there is no apparent tenderness. No peritoneal signs. : Normal-appearing genitalia Extremities: No edema Neuro: Somnolent, responds to painful stimuli, appears to move all 4 extremities. Appears to have sensation all 4 extremities. Skin: No rash or lesions noted MEDICAL DECISION MAKING: Chief Complaint: please see [facility] External records reviewed: Patient was then admitted to [place] 05/09 - 05/14/2024 with acute exacerbation of chronic heart failure now with reduced ejection fraction of 40-45%. Factors affecting care: none Social determinants of health: none History obtained from others: EMS Consults: Hospitalist ([facility]) - Dr. Carrillo recommended transfer secondary new onset seizure and lack of neurology coverage at [facility]. Initially attempted transfer to [facility] - noted 3-5 day wait for bed. 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 Rosado who accepts patient's case in transfer [facility] Narrative: Patient was initially hypertensive with a blood pressure of 218/106, otherwise afebrile she is nontoxic-appearing she was not overly tachypneic. No Kussmaul respirations. She was somnolent, altered would respond to painful stimuli. Will grunt to make nonsensical sounds. I considered the following differential diagnosis: ICH, CVA, toxic or metabolic encephalopathy, DKA/HHS, hypertensive emergency, ACS, arrhythmia, anemia, electrolyte disturbance, UTI, thyroid abnormalities I obtained a broad to further determine if the patient was suffering from a life-threatening etiology. Initially treated the patient 1 L IV fluid and 4 mg Zofran given report of vomiting. ALL IMAGES (IF OBTAINED) HAVE BEEN PERSONALLY REVIEWED AND INTERPRETED BY MYSELF. EKG with NSR, normal axis, normal intervals, no STEMI, VBG with respiratory acidosis with pH 7.2 and a CO2 of 53 CBC with no leukocytosis, no anemia or thrombocytopenia noted Serum preg negative Serum alcohol level negative Lactate is wnl indicating no end-organ hypoperfusion and/or hypoxia. Initial troponin indeterminate will send repeat troponin Initial lipase elevated however downtrending from prior. Likely not clinically significant Beta-hydroxybutyrate slightly elevated consistent with HHS CMP with hyperkalemia, pseudo hyponatremia, no acute kidney injury, no anion gap or metabolic acidosis which is consistent with HHS serum glucose greater than 1100 No sign of liver dysfunction on CMP No sign of dysfunction thyroid studies Urine drug screen negative Initial chest x-ray was read reviewed personally esophageal no evidence of CHF or pneumonia During the patient's ED course she suffered a new onset seizure lasting approximately 90 seconds. Seizure was aborted with 2 mg IV Ativan. After seizure patient was somnolent, postictal with sonorous respirations. Given need for repeat imaging, removal for department and likely transferred given lack of neurology coverage I opted to control the patient's airway given somnolent respirations and concern for decompensation given her clinical course. Patient intubated without issue. Please see below procedure note. As a result of new onset seizure patient was taken for second CT scan of her brain. She was sedated with propofol and given Keppra for seizure prophylaxis. Given lab findings most consistent with HHS and patient was started on an insulin drip and continue with second liter of normal saline fluid resuscitation. Post intubation chest x-ray showed appropriate placement of tube and NG. Post-seizure CT scan of the brain showed no ICH Patient continued to be persistently hypertensive and tachycardic which necessitated 10 mg IV labetalol. Upon reassessment patient's blood pressure improved to 140/77, heart rate improved to 111. She remained stable mechanical ventilation awaiting transport to tertiary care center for further neurology and endocrinology care. Family updated. The procedure was performed by myself. Indications: Airway protection Procedure Description: Patient was preoxygenated with nonrebreather, she is in supine position, laryngoscopy was used, 7 have ET tube was used, grade 1 view through the cords. First pass success. No immediate complications. Post-Procedure Assessment: Tracheal intubation was confirmed with breath sounds auscultated equally bilaterally; appropriate color change with end tidal CO2 detector and waveform capnography. The patient tolerated the procedure well with no immediate complications. The patient and/or family, caregivers express understanding. The patient and/or family, caregivers agrees with the plan. Shared decision making: I will have a discussion with the patient and or visitors regarding risk/benefits of further testing or admission. They will be made aware of of the risk/benefits inherent in this decision they will be given the opportunity to voice understanding. Total critical care time today provided was at least 60 minutes. This excludes separately billable procedures. Critical care time (if documented) is secondary to the patient having high probability of clinically significant/life threatening deterioration in the patient's condition which required my urgent intervention. Impression: 1. Altered mental status 2. Hyperglycemic hyperosmolar syndrome 3. New onset Seizure Dispo: Transfer to [facility]. This note was generated with e-SENS dictation software. It may contain incorrect words, spelling, and punctuation that were not noted in review of the chart prior to signing. Lab Data Labs: Laboratory Results - last 24 hr 03/30/25 03/30/25 03/30/25 07:16 07:16 07:16 WBC 3.8 L RBC 4.62 Hgb 13.3 Hct 43.2 MCV 93.5 MCH 28.8 MCHC 30.8 L RDW Std Deviation 42.2 RDW Coeff of Rachael 12.2 Plt Count 250 MPV 11.6 Immature Gran % (Auto) 0.300 Neut % (Auto) 80.3 H Lymph % (Auto) 12.5 L Rhea % (Auto) 6.1 Eos % (Auto) 0.3 Baso % (Auto) 0.5 Absolute Neuts (auto) 3.0 Absolute Lymphs (auto) 0.47 L Nucleated RBC % 0 Sodium 128 L Cancelled Potassium 5.2 H Cancelled Chloride 92 L Carbon Dioxide Anion Gap BUN Creatinine Estim Creat Clear Calc Est GFR (MDRD) Non-Af BUN/Creatinine Ratio Glucose Serum Osmolality Lactic Acid Calcium Phosphorus Magnesium Total Bilirubin AST ALT Alkaline Phosphatase Total Creatine Kinase Troponin T High Sens Troponin T Hi Sens 2 Hr Total Protein Albumin Globulin Albumin/Globulin Ratio Triglycerides Lipase b-Hydroxybutyric mmol/L TSH Free T4 Free T3 pg/dL Serum , Qual Urine Color Urine Clarity Urine pH Ur Specific Bernie Urine Protein Urine Glucose (UA) Urine Ketones Urine Occult Blood Urine Nitrite Urine Bilirubin Urine Urobilinogen Ur Leukocyte Esterase Urine RBC Urine WBC Ur Squamous Epith Cells Urine Bacteria Urine Mucus Urine Opiates Screen U Buprenorphine Qual Ur Oxycodone Screen Urine Methadone Screen Urine Fentanyl Screen Ur Barbiturates Screen Ur Phencyclidine Scrn Ur Amphetamines Screen U Benzodiazepines Scrn Urine Cocaine Screen U Cannabinoids Screen Ethyl Alcohol POC Glucose 03/30/25 03/30/25 03/30/25 07:16 07:16 07:16 WBC RBC Hgb Hct MCV MCH MCHC RDW Std Deviation RDW Coeff of Rachael Plt Count MPV Immature Gran % (Auto) Neut % (Auto) Lymph % (Auto) Rhea % (Auto) Eos % (Auto) Baso % (Auto) Absolute Neuts (auto) Absolute Lymphs (auto) Nucleated RBC % Sodium Potassium Chloride Cancelled Carbon Dioxide 23.3 Cancelled Anion Gap 13 Cancelled BUN 16 Creatinine 1.22 H Estim Creat Clear Calc 52.46 Est GFR (MDRD) Non-Af 53 L BUN/Creatinine Ratio 12.9 Glucose 1122 H* Serum Osmolality Lactic Acid 1.2 Calcium 10.7 Phosphorus 5.0 H Magnesium 2.4 H Total Bilirubin 0.41 AST 30 ALT 41 H Alkaline Phosphatase 95 Total Creatine Kinase 644 H Troponin T High Sens 37 H Troponin T Hi Sens 2 Hr Total Protein 7.7 Albumin 4.1 Globulin 3.6 Albumin/Globulin Ratio 1.1 Triglycerides 119 Lipase 114 H b-Hydroxybutyric mmol/L TSH 2.620 Free T4 1.40 Free T3 pg/dL 2.8 Serum , Qual Urine Color Urine Clarity Urine pH Ur Specific Bernie Urine Protein Urine Glucose (UA) Urine Ketones Urine Occult Blood Urine Nitrite Urine Bilirubin Urine Urobilinogen Ur Leukocyte Esterase Urine RBC Urine WBC Ur Squamous Epith Cells Urine Bacteria Urine Mucus Urine Opiates Screen U Buprenorphine Qual Ur Oxycodone Screen Urine Methadone Screen Urine Fentanyl Screen Ur Barbiturates Screen Ur Phencyclidine Scrn Ur Amphetamines Screen U Benzodiazepines Scrn Urine Cocaine Screen U Cannabinoids Screen Ethyl Alcohol < 10.1 POC Glucose 03/30/25 03/30/25 03/30/25 07:33 07:45 10:01 WBC RBC Hgb Hct MCV MCH MCHC RDW Std Deviation RDW Coeff of Rachael Plt Count MPV Immature Gran % (Auto) Neut % (Auto) Lymph % (Auto) Rhea % (Auto) Eos % (Auto) Baso % (Auto) Absolute Neuts (auto) Absolute Lymphs (auto) Nucleated RBC % Sodium 134 Potassium 3.5 Chloride 99 Carbon Dioxide 19.3 L Anion Gap 16 H BUN 15 Creatinine 1.13 Estim Creat Clear Calc 56.63 Est GFR (MDRD) Non-Af 59 L BUN/Creatinine Ratio 13.2 Glucose 783 H* Serum Osmolality 335 H Lactic Acid Calcium 10.1 Phosphorus Magnesium Total Bilirubin AST ALT Alkaline Phosphatase Total Creatine Kinase Troponin T High Sens Troponin T Hi Sens 2 Hr 29 H Total Protein Albumin Globulin Albumin/Globulin Ratio Triglycerides Lipase b-Hydroxybutyric mmol/L 0.6 H TSH Free T4 Free T3 pg/dL Serum , Qual NEGATIVE Urine Color Straw Urine Clarity Clear Urine pH 6.5 Ur Specific Bernie 1.010 Urine Protein 100 H Urine Glucose (UA) 1000 H Urine Ketones Negative Urine Occult Blood 25 H Urine Nitrite Negative Urine Bilirubin Negative Urine Urobilinogen Normal Ur Leukocyte Esterase Negative Urine RBC 0-5 SEEN Urine WBC 0 SEEN Ur Squamous Epith Cells 0-5 SEEN Urine Bacteria 0 SEEN Urine Mucus 0 SEEN Urine Opiates Screen NEGATIVE U Buprenorphine Qual NEGATIVE Ur Oxycodone Screen NEGATIVE Urine Methadone Screen NEGATIVE Urine Fentanyl Screen NEGATIVE Ur Barbiturates Screen NEGATIVE Ur Phencyclidine Scrn NEGATIVE Ur Amphetamines Screen NEGATIVE U Benzodiazepines Scrn NEGATIVE Urine Cocaine Screen NEGATIVE U Cannabinoids Screen NEGATIVE Ethyl Alcohol POC Glucose 03/30/25 11:26 WBC RBC Hgb Hct MCV MCH MCHC RDW Std Deviation RDW Coeff of Rachael Plt Count MPV Immature Gran % (Auto) Neut % (Auto) Lymph % (Auto) Rhea % (Auto) Eos % (Auto) Baso % (Auto) Absolute Neuts (auto) Absolute Lymphs (auto) Nucleated RBC % Sodium Potassium Chloride Carbon Dioxide Anion Gap BUN Creatinine Estim Creat Clear Calc Est GFR (MDRD) Non-Af BUN/Creatinine Ratio Glucose Serum Osmolality Lactic Acid Calcium Phosphorus Magnesium Total Bilirubin AST ALT Alkaline Phosphatase Total Creatine Kinase Troponin T High Sens Troponin T Hi Sens 2 Hr Total Protein Albumin Globulin Albumin/Globulin Ratio Triglycerides Lipase b-Hydroxybutyric mmol/L TSH Free T4 Free T3 pg/dL Serum , Qual Urine Color Urine Clarity Urine pH Ur Specific Bernie Urine Protein Urine Glucose (UA) Urine Ketones Urine Occult Blood Urine Nitrite Urine Bilirubin Urine Urobilinogen Ur Leukocyte Esterase Urine RBC Urine WBC Ur Squamous Epith Cells Urine Bacteria Urine Mucus Urine Opiates Screen U Buprenorphine Qual Ur Oxycodone Screen Urine Methadone Screen Urine Fentanyl Screen Ur Barbiturates Screen Ur Phencyclidine Scrn Ur Amphetamines Screen U Benzodiazepines Scrn Urine Cocaine Screen U Cannabinoids Screen Ethyl Alcohol POC Glucose 477 H* ABG Data ABG results: ABG 03/30/25 03/30/25 07:40 09:21 Specimen Type SALINAS ART Sample Site Not entered R Brach pH 7.34 L Bicarbonate Actual 21.7 L Total CO2 23 Base Excess -4 L O2 Saturation 99 H O2 % 30.0 ABG pCO2 40.6 ABG pO2 123 H Reza Test Positive VBG pH 7.30 L VBG pO2 20 L VBG HCO3 26 VBG Total CO2 28 VBG O2 Sat (Calc) 26 L VBG Base Excess 0 POC Mix VBG pCO2 Pt Tmp 53.5 H Respiration Rate 14 O2 Delivery Device Not entered Adult Vent Vent Mode AC Tidal Volume 450.0 POC PEEP 5 Crit Call To/Read Back Yes Blood Gas Notified Whom oleksandr Blood Gas Notified Time 07:41:58 Radiography Diagnostic Testing: Clinical Impression(s) from Imaging Studies Brain CT 03/30/25 07:27 IMPRESSION: Evaluation is limited by motion and only axial views are obtained. No acute, large territorial infarction. No acute hemorrhage. Consider MR if symptoms persist. Reading Location: [facility] Chest X-Ray 03/30/25 08:00 IMPRESSION: No focal consolidations. Reading Location: [facility] Brain CT 03/30/25 08:48 IMPRESSION: No acute intracranial process. Reading Location: [facility] Chest X-Ray 03/30/25 09:00 IMPRESSION: Endotracheal tube and nasogastric tube appear in good position. Other findings as noted. Reading Location: [place] [id number] Discharge Plan Triage Chief Complaint: Unresponsive ED Provider: Myron Mcguire Dx/Rx/DC Orders Prescriptions: No Action insulin glargine [Basaglar KwikPen U-100 Insulin] 100 unit/mL (3 mL) insulin pen 10 unit subcut BID furosemide [Lasix] 40 mg tablet 40 mg PO QAM zinc gluconate 50 mg tablet 50 mg PO QDAY clopidogrel [Plavix] 75 mg tablet 75 mg PO QDAY Qty: 30 11RF carvedilol 3.125 mg tablet 3.125 mg PO BID Qty: 60 11RF Rx Instructions: must administer with a meal/food atorvastatin [Lipitor] 40 mg tablet 40 mg PO QHS Qty: 30 11RF spironolactone 25 mg tablet 25 mg PO QDAY Qty: 30 11RF acetaminophen 325 mg Tablet 650 mg PO Q6H PRN PRN (Reason: Pain 1-10 Or Fever >100.7) Qty: 0 0RF (DME) pen needle, diabetic 29 gauge x 1/2 needle See Rx Instructions .Route Qty: 100 0RF Rx Instructions: As directed pantoprazole [Protonix] 40 mg tablet,delayed release (DR/EC) 40 mg PO DAILY Qty: 30 2RF ferrous sulfate 325 mg (65 mg iron) tablet,delayed release (DR/EC) 325 mg PO TID Qty: 90 5RF ascorbic acid (vitamin C) [Vitamin C] 500 mg tablet 500 mg PO TID Qty: 90 2RF Primary Care Provider: Gerber Pina Referrals: Gerber Pina DO [Primary Care Provider, Medical] Print Language: Sami
--- NOTE | 2025-03-30 07:27 | EKG12_ITS ---
Test Reason : REPEAT Blood Pressure : */* mmHG Vent. Rate : 97 BPM Atrial Rate : 97 BPM P-R Int : 184 ms QRS Dur : 82 ms QT Int : 354 ms P-R-T Axes : 69 -7 228 degrees QTcB Int : 449 ms Normal sinus rhythm with sinus arrhythmia Possible Left atrial enlargement Septal infarct , age undetermined ST & T wave abnormality, consider inferolateral ischemia Abnormal ECG Confirmed by ELYSE YU, JOSE ([id number]), visual effects editor ABIOLA ANGLIN ([id number]) on 04/01/2025 1:10:55 PM Referred By: Confirmed By: JOSE PAPPAS MD
--- NOTE | 2025-03-30 07:27 | CT_ITS ---
PROCEDURE: BRAIN/HEAD WITHOUT CONTRAST 03/30/2025 REASON FOR EXAM: AMS TECHNIQUE: Procedure Code: CTBR Modality: CT Procedure: BRAIN/HEAD WITHOUT CONTRAST One or more dose reduction techniques were used (e.g., Automated exposure control, adjustment of the mA and/or kV according to patient size, use of iterative reconstruction technique. RADIATION DOSE SUMMARY: DLP: [id number] mGycm COMPARISON: 09/02/2022 FINDINGS: There is no acute infarct, intracranial hemorrhage, or mass effect. There is no hydrocephalus or significant midline shift. There is mild chronic microvascular ischemic changes and mild parenchymal volume loss. No acute, depressed calvarial fractures. No large scalp hematomas. The paranasal sinuses are clear. CT/Brain/Head without Contrast IMPRESSION: Evaluation is limited by motion and only axial views are obtained. No acute, l arge territorial infarction. No acute hemorrhage. Consider MR if symptoms persist. Reading Location: [id number]
--- NOTE | 2025-03-30 07:31 | EKG12_ITS ---
Test Reason : Blood Pressure : */* mmHG Vent. Rate : 85 BPM Atrial Rate : 85 BPM P-R Int : 188 ms QRS Dur : 84 ms QT Int : 354 ms P-R-T Axes : 58 -3 70 degrees QTcB Int : 421 ms Normal sinus rhythm Septal infarct , age undetermined Abnormal ECG Confirmed by ELYSE YU, JOSE ([id number]), script editor ABIOLA ANGLIN ([id number]) on 04/01/2025 1:13:24 PM Referred By: Confirmed By: JOSE PAPPAS MD
--- OUTSIDE RECORDS SUMMARY | 2025-03-30 07:32 | XMS RPT_ITS | CCD ---
Author Organization [facility] Inform ion Partnership [facility] Care Team Providers Care Virtual Assistant Name Role Phone [facility] Admitting Unava ilable [facility] Attending Unava ilable [facility] Primary Care Unava ilGerber Holland DO Primary Care Provider Gerber Pina DO Primary Care Provider Gerber Pina DO Primary Care Provider Gerber Pina DO Primary Care Provider PHYSICIAN, NONE Primary Care Physician Unavailab Gerber Mcintyre DO Primary Care Provider PHYSICIAN, PATIENT UNSURE Primary Care ABBE Schwarz MD Attending Unavailable PHYSICIAN, NONE Primary Care Unavailable CHRIS EVANS MD Admitting Unavailable JERMAIN FINNEY DO Attending Unavailable Chi CAR WASH SUPERVISOR.Jamaica MORENO Unavailable [facility] CAR WASH SUPERVISOR.Cecy MORENO Unavailable DEANA BANDA MD Attending Unavailable GERBER PINA DO Primary Care Unavailable DR GEORGIANA ODEN MD Consulting Unavailable GERBER PINA DO Primary Care Physician Abiola Elizabeth Unavailable Unavailable GERBER PINA DO Primary Care Unavailable DR GEORGIANA ODEN MD Admitting Unavailable LAWRENCE YU, ABRAHAN Attending Unavailable ABRAHAN LUNDBERG MD Consulting Unavailable GERBER PINA DO Consulting Unavailable DANIELLE JOYNER MD Consulting Unavailable DR SHAVON HOLDEN MD Consulting Unavailab ZACHARY Trammell MD Consulting Unavailable CECILLE YU, DR GEORGIANA Alcocer Consulting Unavailable SARAH DOYAIR Consulting Unavailable Mireles CAR WASH SUPERVISOR.CAT CRACKER OPERATOR, Jamaica Olson Unavailable José Miguel CAR WASH SUPERVISOR.CAT CRACKER OPERATOR, Mag Perez Unavailable José Miguel CAR WASH SUPERVISOR.CAT CRACKER OPERATOR, Mag Perez Unavailable [facility], [place] Unavailable Dr. Gerber Pina DO Primary Care Provider [phone] Dr. Gerber Pina DO Referring Provider Nathan Grover Attending Provider Nathan Grover Referring Provider Rony Milligan Consulting Unavailable Rony Milligan Attending Unavailable Crisam, Taryn Kimberley Referring Unavailable Chayito Maravilla Admitting Unavailable Pina, Gerber Primary Care Unavailable Chayito Maravilla Consulting Unavailable Chase Logan Consulting Unavailable Chase Logan Attending Unavailable Chayito Maravilla Attending Unavailable Rony Milligan Attending Unavailable Koram, Taryn Kimberley Referring Unavailable Pina, Gerber Primary Care Unavailable Koram, Taryn Kimberley Consulting Unavailable Nathan Nazario Referring Unavailable Nathan Nazario Attending Unavailable Pina, Gerber Primary Care Unavailable Koram, Taryn Kimberley Attending Unavailable Rony Milligan Consulting Unavailable Chayito Maravilla Admitting Unavailable Pina, Gerber Primary Care Unavailable Chayito Maravilla Consulting Unavailable Chase Logan Consulting Unavailable Koram, Taryn Kimberley Attending Unavailable Nathan Nazario Attending Unavailable Pina, Gerber Referring Unavailable Pina, Gerber Primary Care Unavailable JAMAICA MIRELES Referring Unavailabl e PINA, GERBER L Primary Care Unavailable JAMAICA MIRELES Attending Unavailabl e PINA, GERBER L Primary Care Unavailable PINA, GERBER L Primary Care Unavailable HERMILO TROTTER Referring Unavailable PINA, GERBER L Primary Care Unavailable PINA, GERBER L Referring Unavailable PINA, GERBER L Primary Care Unavailable LINDA LOWERY Attending Unavaila ble PINA, GERBER L Primary Care Unavailable PINA, GERBER L Primary Care Unavailable JAMAICA MIRELES Referring UnavailGERBER Barnett Primary Care Unavailable JAMAICA MIRELES Attending UnavailGERBER Barnett Referring Unavailable GERBER PINA Primary Care Unavailable Allergies Allergy Classification Reported Allergen(s) Allergy Type Date of Onset Reaction(s) Facility Latex (1 source) Latex Substance Allergy [facility] Penicillins (antibiotic) (1 source) Penicillin; Translations: [penicillin] Drug Allergy [facility] (8 sources) Angiotensin-con verting enzyme inhibitor agent; Translations: [STEFFI INHIBITORS] Drug Intolerance 4 Cough [facility] Work Phone: (20 sources) Latex; Translations: [LATEX] Drug Allergy 2 Rash [facility] (20 sources) Angiotensin-con verting enzyme inhibitor agent Drug Intolerance 4 Cough [facility] Work Phone: (20 sources) Morphine; Translations: [morphine] Drug Allergy 5 GI Upset, Nausea and vomiting (disorder) [facility] (1 source) Penicillin; Translations: [penicillin] Drug Allergy [facility] (1 source) Latex Drug allergy (disorder) 5 [facility] Repository (1 source) Morphine Drug Allergy 5 [facility] Repository Medications Current Medications Medication Drug Class(es) Dates Sig (Normalized) Sig (Original) acetaminophen 650 mg oral tablet (4 sources) Start: 11-11-2023 acetaminophen Dose : 650 mg =, Oral, q6hr, PRN Pain, scale 1-10, 0 Refill(s) Start Date: 11/11/23 Status: Ordered Repeat number: 1 Start: 09-02-2022 Acetaminophen 325 mg Tablet Active 650 mg PO EVERY 6 HOURS NEEDED as needed for Pain 1-10 Or Fever >100.7 0 0 September 02, 2022 12:00am Alcohol Swabs (2 sources) Start: 11-11-2023 Alcohol Swabs See Instructions, 1 box, Use one alcohol swab to clean finger TID as directed for blood sugar checks, # 1 EA, 0 Refill(s), Pharmacy: [id number], 167.6, cm, 11/10/23 20:01:00 EDT, Height, 63.3, kg, 11/10/23 20:01:00 EDT, Dosing Weight Start Date: 11/11/23 Status: Ordered Quantity: 1.0 Unit: EA Repeat number: 1 Start: 11-11-2023 Alcohol Swabs See Instructions, 1 box, Use one alcohol swab to clean finger TID as directed for blood sugar checks, # 1 EA, 0 Refill(s), Pharmacy: [facility], 167.6, cm, 11/10/23 20:01:00 EDT, Height, 63.3, kg, 11/10/23 20:01:00 EDT, Dosing Weight Start Date: 11/11/23 Status: Ordered ascorbic acid 500 mg oral tablet (9 sources) Vitamin C Start: 05-07-2024 take 1 tablet by mouth three times daily Ascorbic Acid (Vitamin C) (Vitamin C) 500 mg tablet Active 500 mg PO THREE TIMES A DAY 90 2 May 07, 2024 1:00am take 1 tablet by mouth once minh y ascorbic acid, vitamin C, (VITAMIN C) 500 mg tablet Take 500 mg by mouth once daily. Active atorvastatin 40 mg oral tablet (20 sources) HMG-CoA Reductase Inhibitor Start: 09-23-2024 End: 11-22-2024 take 1 tablet by mouth once daily at bedtime for hyperlipidemia atorvastatin (LIPITOR) 40 mg tablet Indications: Type 2 diabetes mellitus without complication, with long-term current use of insulin (HCC) , Congestive heart failure, unspecified HF chronicity, unspecified heart failure type (HCC) TAKE 1 TABLET BY MOUTH ONCE DAILY AT BEDTIME FOR CHOLESTEROL 30 tablet 09/23/2024 Active Start: 12-07-2020 End: 09-19-2024 take 1 tablet by mouth at bedtime Atorvastatin 40 mg tablet Discontinued 40 mg PO AT BEDTIME 30 0 September 02, 2022 12:00am May 03, 2024 11:32am Start: 11-15-2016 End: 09-02-2022 take 1 tablet by mouth once daily Atorvastatin Calcium 10 MG tablet Discontinued 10 mg PO DAILY November 15, 2016 12:00am September 02, 2022 11:42am Comment on above: Take 1 tablet by jessica th daily at bedtime. For cholesterol. TAKE 1 TABLET BY JESSICA TH ONCE DAILY AT BEDTIME FOR CHOLESTEROL biotin 0.8 mg oral tablet (7 sources) take 1 tablet by mouth once daily Biotin 800 mcg tab Take 1 tablet by mouth once daily. Active Blood Glucose Control, Normal (GLUCOSE CONTROL) soln (2 sources) Start: 05-24-2024 End: 05-25-2024 Blood Glucose Control, Normal (GLUCOSE CONTROL) soln Indications: Type 2 diabetes mellitus with other specified complication, with long-term current use of insulin (HCC) Test Three times a week. Insulin Dep? Yes E11.9 DM 2 1 Each 11 05/24/2024 05/25/2024 Active Blood Glucose Test Machine (2 sources) Start: 11-11-2023 Blood Glucose Test Machine See Instructions, Use glucometer daily as directed for blood sugar checks. Dispense insurance preferred device., # 1 EA, 0 Refill(s), Pharmacy: [facility], 167.6, cm, 11/10/23 20:01:00 EDT, Height, 63.3, kg, 11/10/23 20:01:00 EDT, Dosing Weight Start Date: 11/11/23 Status: Ordered Quantity: 1.0 Unit: EA Repeat number: 1 Start: 11-11-2023 Blood Glucose Test Machine See Instructions, Use glucometer daily as directed for blood sugar checks. Dispense insurance preferred device., # 1 EA, 0 Refill(s), Pharmacy: [facility], 167.6, cm, 11/10/23 20:01:00 EDT, Height, 63.3, kg, 11/10/23 20:01:00 EDT, Dosing Weight Start Date: 11/11/23 Status: Ordered Blood-Glucose Meter (2 sources) Start: 05-24-2024 End: 05-25-2024 Blood-Glucose Meter Indications: Type 2 diabetes mellitus with other specified complication, with long-term current use of insulin (HCC) Test Three times a week. Insulin Dep? Yes E11.9 DM 2 1 Each 2 05/24/2024 05/25/2024 Active Blood-Glucose Sensor (DEXCOM G7 SENSOR) marbella (2 sources) Start: 11-22-2024 Blood-Glucose Sensor (DEXCOM G7 SENSOR) marbella Indications: Type 2 diabetes mellitus with both eyes affected by mild nonproliferative retinopathy without macular edema, with long-term current use of insulin ([facility]) 1 each every 10 days. 3 each 2 11/22/2024 Active carvedilol 3.125 mg oral tablet (20 sources) alpha-Adrener gic Hussein, beta-Adrenerg ic Hussein Start: 09-23-2024 End: 11-22-2024 take 1 tablet by mouth twice daily at mealtime carvedilol (COREG) 3.125 mg tablet Indications: Essential hypertension , Type 2 diabetes mellitus without complication, with long-term current use of insulin ([facility]) , Congestive heart failure, unspecified HF chronicity, unspecified heart failure type (HCC) Take 1 tablet by mouth two times a day with meals. 60 tablet 1 10/08/2024 Active Start: 06-13-2024 End: 09-19-2024 take 1 tablet by mouth twice daily at mealtime carvedilol (COREG) 3.125 mg tablet Indications: Essential hypertension Take 1 tablet by mouth two times a day with meals. 180 tablet 2 06/13/2024 09/19/2024 Discontinued Start: 05-13-2024 Coreg 3.125 mg oral tablet Dose : 3.125 mg = 1 tab(s), Oral, BIDM, # 60 tab(s), 0 Refill(s), Pharmacy: [facility], 170.2, cm, 05/10/24 4:14:00 EST, Height, kg, 05/11/24 5:35:00 EST, Dosing Weight Start Date: 05/13/24 Status: Ordered Quantity: 60.0 Unit: tab(s) Repeat number: 1 clopidogrel 75 mg oral tablet (20 sources) [id number] Platelet Inhibitor Start: 09-23-2024 End: 11-22-2024 take 1 tablet by mouth once daily clopidogrel (PLAVIX) 75 mg tablet Indications: Type 2 diabetes mellitus without complication, with long-term current use of insulin ([facility]) , Congestive heart failure, unspecified HF chronicity, unspecified heart failure type ([facility]) Take 1 tablet by mouth once daily. 30 tablet 09/23/2024 Active Start: 06-12-2024 End: 09-19-2024 take 1 tablet by mouth once daily clopidogrel (PLAVIX) 75 mg tablet Take 1 tablet by mouth once daily. 30 tablet 5 06/12/2024 09/19/2024 Discontinued Start: 05-13-2024 Plavix 75 mg o ral tablet Dose : 75 mg = 1 tab(s), Oral, qDay, # 30 tab(s), 0 Refill(s), Pharmacy: [facility], 170.2, cm, 05/10/24 4:14:00 EST, Height, kg, 05/11/24 5:35:00 EST, Dosing Weight Start Date: 05/13/24 Status: Ordered Quantity: 30.0 Unit: tab(s) Repeat number: 1 ferrous sulfate 325 mg delayed release oral tablet (10 sources) Start: 05-10-2024 take 1 dose by mouth three times daily ferrous sulfate Dose : 325 mg =, Oral, TID, 0 Refill(s) Start Date: 05/10/24 Status: Ordered Repeat number: 1 Start: 05-07-2024 take 1 tablet by jessica th three times daily ferrous sulfate 325 mg (65 mg iron) EC tablet Take 325 mg by mouth three times a day. 05/10/2024 Active furosemide 40 mg oral tablet (19 sources) Loop Diuretic Start: 06-12-2024 take 1 tablet by mouth once daily furosemide (LASIX) 40 mg tablet Take 1 tablet by mouth once daily. 30 tablet 5 06/12/2024 Active Start: 05-13-2024 Lasix 40 mg or al tablet Dose : 40 mg = 1 tab(s), Oral, qDay, # 30 tab(s), 0 Refill(s), Pharmacy: [facility], 170.2, cm, 05/10/24 4:14:00 EST, Height, kg, 05/11/24 5:35:00 EST, Dosing Weight Start Date: 05/13/24 Status: Ordered Quantity: 30.0 Unit: tab(s) Repeat number: 1 3 ml insulin glargine 100 unt/ml pen injector (20 sources) Insulin Analog Start: 11-22-2024 Insulin Glargi ne (Basaglar Kwikpen U-100 Insulin) 100 unit/mL (3 mL) insulin pen Active 10 U SC TWICE A DAY November 22, 2024 12:00am Start: 05-14-2024 inject 1 dose by sub cutaneous injection once daily at bedtime Lantus 100 units/mL10 ml vial solution Dose : 12 unit(s) =, Subcutaneous (INT), qHS, # 15 mL, 0 Refill(s), Pharmacy: [facility], 170.2, cm, 05/10/24 4:14:00 EST, Height, kg, 05/11/24 5:35:00 EST, Dosing Weight Start Date: 05/14/24 Status: Ordered Quantity: 15.0 Unit: mL Repeat number: 1 Start: 12-23-2022 End: 10-21-2024 insulin glargine (LANTUS PRANAV OSTAR U-100 INSULIN) 100 unit/mL (3 mL) Indications: Type 2 diabetes mellitus without complication, with long-term current use of insulin (HCC) Inject 32-34 Units subcutaneously daily at bedtime. 33 mL 3 10/21/2024 Active Start: 10-04-2022 End: 12-23-2022 insulin glargine (LANTUS PRANAV OSTAR U-100 INSULIN) 100 unit/mL (3 mL) Indications: Type 2 diabetes mellitus without complication, with long-term current use of insulin (HCC) Inject 30 Units subcutaneously daily at bedtime. 10 Each 3 12/23/2022 Active Start: 08-05-2020 End: 12-23-2022 insulin glargine (BASAGLAR K WIKPEN U-100 INSULIN) 100 unit/mL (3 mL) Indications: diabetes mellitus Inject 16 Units subcutaneously daily at bedtime. 5 Pen 0 08/05/2020 12/23/2022 Discontinued Comment on above: Inject 16 Units subc utaneously daily at bedtime. Inject 30 Units subc utaneously daily at bedtime. Insulin Syringes (orange cap) (1 source) Start: 05-14-2024 Insulin Syringes (orange cap) See Instructions, Use one syringe to inject insulin 4 times daily as directed. 1 box, # 1 EA, 0 Refill(s), Pharmacy: [facility], 170.2, cm, 05/10/24 4:14:00 EST, Height, 80.4, kg, 05/11/24 5:35:00 EST, Dosing Weight Start Date: 05/14/24 Status: Ordered Quantity: 1.0 Unit: EA Repeat number: 1 isopropyl alcohol 0.7 ml/ml medicated pad (20 sources) Start: 05-24-2024 alcohol swabs (ALCOHOL PADS) Indications: Type 2 diabetes mellitus with other specified complication, with long-term current use of insulin (HCC) Test Three times a week. Insulin Dep? Yes E11.9 DM 2 200 Each 4 05/24/2024 Active losartan potassium 50 mg oral tablet (20 sources) Angiotensin 2 Receptor Hussein Start: 11-11-2023 End: 01-10-2024 losartan 50 mg oral tablet Dose : 50 mg = 1 tab(s), Oral, qDay, # 60 tab(s), 0 Refill(s), Pharmacy: [facility], 167.6, cm, 11/10/23 20:01:00 EDT, Height, kg, 11/10/23 20:01:00 EDT, Dosing Weight Start Date: 11/11/23 Stop Date: 01/10/24 Status: Ordered Start: 08-05-2020 End: 06-14-2023 take 1 tablet by mouth once daily losartan (COZAAR) 50 mg tablet Take 1 tablet by mouth once daily. 90 tablet 3 09/10/2021 06/14/2023 Discontinued (Other) Comment on above: Take 1 tablet by jessica once daily. magnesium oxide 400 mg oral tablet (1 source) Start: 05-13-2024 End: 05-27-2024 magnesium oxide 400 mg oral tablet Dose : 400 mg = 1 tab(s), Oral, BID, X 14 day(s), # 28 tab(s), 0 Refill(s), 05/27/24 5:12:00 PM EST, Pharmacy: [facility], 170.2, cm, 05/10/24 4:14:00 EST, Height, kg, 05/11/24 5:35:00 EST, Dosing Weight Start Date: 05/13/24 Stop Date: 05/27/24 Status: Ordered Quantity: 28.0 Unit: tab(s) Repeat number: 1 MEDICATION, NON-DATABASE (20 sources) take 30 mg by mouth once daily MEDICATION, NON-DATABASE Zinc 30mg by mouth daily Active MEDICATION, NON- DATABASE Purdentix supplement daily (for teeth and gum health) Active MEDICATION, NON- DATABASE Sugar Reverse supplement daily Active MEDICATION, NON- DATABASE JOANNA supplement as needed for constipation Active 24 hr metoprolol succinate 100 mg extended release oral tablet (20 sources) beta-Adrenergic Hussein Start: 11-10-2023 End: 11-11-2023 metoprolol succinate 100 mg oral TABLET extended release Start: 11/11/23 8:00:00 AM EDT, Dose = 100 mg, = 1 tab(s), Oral, 0, 11/10/23 12:15:00 EDT Start Date: 11/11/23 Stop Date: 11/11/23 Status: Completed Start: 11-10-2023 End: 11-10-2023 metoprolol succinate 100 mg oral TABLET extended release Start: 11/10/23 8:00:00 AM EDT, Dose = 100 mg, = 1 tab(s), Oral, 0, 11/09/23 21:18:00 EDT Start Date: 11/10/23 Stop Date: 11/10/23 Status: Completed Start: 06-14-2023 End: 10-07-2024 take 1 tablet by mouth twice daily metoprolol succinate ER (TOPROL XL) 100 mg Take 1 tablet by mouth two times a day. 06/14/2023 10/07/2024 Discontinued (Course of therapy completed) Start: 10-11-2022 End: 05-03-2024 take 1 tablet by mouth twice daily Metoprolol Tartrate 100 mg tablet Discontinued 100 mg PO TWICE A DAY 180 3 May 22, 2023 5:38pm May 03, 2024 11:33am Dose increase Start: 08-31-2022 End: 10-11-2022 take 1 tablet by mouth twice daily Metoprolol Succinate 50 mg tablet extended release 24 hr Discontinued 50 mg PO TWICE A DAY 60 0 September 02, 2022 11:46am October 11, 2022 2:34pm Start: 09-23-2020 End: 06-14-2023 take 1 tablet by mouth twice daily Metoprolol Tartrate 50 mg tablet Discontinued 50 mg PO TWICE A DAY October 11, 2022 12:00am May 22, 2023 5:38pm Comment on above: Take 1 tablet by jessica th twice daily. Take 1 tablet by jessica th two times a day. MULTI-VITAMIN ORAL (20 sources) MULTI-VITAMIN OR AL Take by mouth once daily. Active MULTI-VITAMIN OR AL Take by mouth. Active MULTI-VITAMIN OR AL Take by mouth. 0 Active Comment on above: Take by mouth. ondansetron 4 mg oral tablet (1 source) Serotonin-3 Receptor Antagonist Start: 4 End: 4 ondansetron 4 mg oral tablet Dose : 4 mg = 1 tab(s), Oral, q8h, PRN Nausea/Vomiting, X 3 day(s), # 15 tab(s), 0 Refill(s), 11/14/23 10:00:00 AM EDT, Pharmacy: [facility], 167.6, cm, 11/10/23 20:01:00 EDT, Height, kg, 11/10/23 20:01:00 EDT, Dosing Weight Start Date: 11/11/23 Stop Date: 11/14/23 Status: Ordered pantoprazole 40 mg delayed release oral tablet (20 sources) Proton Pump Inhibitor Start: 5 take 1 tablet by mouth once daily pantoprazole DR (PROTONIX) 40 mg tablet Indications: Type 2 diabetes mellitus without complication, with long-term current use of insulin (HCC) , Congestive heart failure, unspecified HF chronicity, unspecified heart failure type (HCC) Take 1 tablet by mouth once daily. 30 minutes before eating. 30 tablet 09/23/2024 Active Start: 05-07-2024 End: 09-19-2024 take 1 tablet by mouth once daily pantoprazole DR (PROTONIX) 40 mg tablet Indications: Type 2 diabetes mellitus without complication, with long-term current use of insulin (HCC) , Congestive heart failure, unspecified HF chronicity, unspecified heart failure type (HCC) Take 1 tablet by mouth once daily. 30 minutes before eating. 30 tablet 09/23/2024 Active Start: 09-02-2022 End: 05-03-2024 take 1 tablet by mouth once daily Pantoprazole 40 mg Tablet,Delayed Release (Dr/Ec) Discontinued 40 mg PO DAILY 30 0 September 02, 2022 12:00am May 03, 2024 11:33am Comment on above: Take 1 tablet by jessica th once daily. Pen needles (2 sources) Start: 11-11-2023 Pen needles Se e Instructions, Use one pen needle to inject insulin TID as directed. qs for 1 month supply, # 1 EA, 0 Refill(s), Pharmacy: [facility], 167.6, cm, 11/10/23 20:01:00 EDT, Height, 63.3, kg, 11/10/23 20:01:00 EDT, Dosing Weight Start Date: 11/11/23 Status: Ordered Quantity: 1.0 Unit: EA Repeat number: 1 Start: 11-11-2023 Pen needles Se e Instructions, Use one pen needle to inject insulin TID as directed. qs for 1 month supply, # 1 EA, 0 Refill(s), Pharmacy: [facility], 167.6, cm, 11/10/23 20:01:00 EDT, Height, 63.3, kg, 11/10/23 20:01:00 EDT, Dosing Weight Start Date: 11/11/23 Status: Ordered sacubitril 24 mg / valsartan 26 mg oral tablet (17 sources) Angiotensin 2 Receptor Hussein Start: 06-12-2024 take 1 tablet by mouth twice daily sacubitril-valsartan (ENTRESTO) 24-26 mg tablet Take 1 tablet by mouth two times a day. 60 tablet 5 06/12/2024 Active Start: 05-13-2024 take 1 tablet by jessica th twice daily Entresto 24 mg-26 mg oral tablet Dose = 1 tab(s), Oral, BID, # 60 tab(s), 0 Refill(s), Pharmacy: [facility], 170.2, cm, 05/10/24 4:14:00 EST, Height, kg, 05/11/24 5:35:00 EST, Dosing Weight Start Date: 05/13/24 Status: Ordered Quantity: 60.0 Unit: tab(s) Repeat number: 1 spironolactone 25 mg oral tablet (13 sources) Aldosterone Antagonist Start: 11-22-2024 take 1 tablet by mouth once daily Spironolactone 25 mg tablet Active 25 mg PO daily 30 November 22, 2024 12:00am Start: 06-12-2024 End: 10-07-2024 take 1 tablet by mouth once daily spironolactone (ALDACTONE) 25 mg tablet Take 1 tablet by mouth once daily. 30 tablet 5 06/12/2024 10/07/2024 Discontinued Start: 05-13-2024 spironolactone 25 mg oral tablet Dose : 25 mg = 1 tab(s), Oral, qDayM, # 30 tab(s), 0 Refill(s), Pharmacy: [facility], 170.2, cm, 05/10/24 4:14:00 EST, Height, kg, 05/11/24 5:35:00 EST, Dosing Weight Start Date: 05/13/24 Status: Ordered Quantity: 30.0 Unit: tab(s) Repeat number: 1 thiamine 100 mg oral tablet (1 source) Start: 11-11-2023 End: 11-25-2023 thiamine 100 mg oral tablet Dose : 100 mg = 1 tab(s), Oral, qDay, X 14 day(s), # 14 tab(s), 0 Refill(s), 11/25/23 9:59:00 AM EDT, Pharmacy: [facility], 167.6, cm, 11/10/23 20:01:00 EDT, Height, kg, 11/10/23 20:01:00 EDT, Dosing Weight Start Date: 11/11/23 Stop Date: 11/25/23 Status: Ordered Turmeric extract (7 sources) TURMERIC ORAL Ta ke by mouth once daily. Active zinc gluconate 50 mg oral tablet (2 sources) Start: 11-22-2024 take 1 tablet by mouth once daily Zinc Gluconate 50 mg tablet Active 50 mg PO daily November 22, 2024 12:00am Completed/Discontinued Medications Medication Drug Class(es) Dates Sig (Normalized) Sig (Original) alogliptin 25 mg oral tablet (20 sources) Start: 06-06-2017 End: 06-14-2023 take 1 tablet by mouth once daily alogliptin 25 mg tab TAKE ONE TABLET BY MOUTH ONCE DAILY 90 tablet 1 06/06/2017 06/14/2023 Discontinued (Other) Comment on above: TAKE ONE TABLET BY [facility] ONCE DAILY aspirin 81 mg delayed release oral tablet (20 sources) Platelet Aggregation Inhibitor, Nonsteroidal Anti-inflammatory Drug Start: 09-02-2022 End: 05-07-2024 take 1 tablet by mouth at breakfast Aspirin 81 mg Tablet,Delayed Release (Dr/Ec) Discontinued 81 mg PO WITH BREAKFAST 0 0 September 02, 2022 12:00am May 07, 2024 4:14pm End: 10-07-2024 BABY ASPIRIN ORAL Take by [facility]. 10/07/2024 Discontinued BABY ASPIRIN ORA L Take by mouth. Active BABY ASPIRIN ORA L Take by mouth. 0 Active Comment on above: Take by mouth. Blood-Glucose Meter (ONE TOUCH ULTRA 2) monitoring kit (20 sources) Start: 05-05-2014 End: 05-24-2024 Blood-Glucose Meter (ONE TOUCH ULTRA 2) monitoring kit 1 Each as needed. One Touch Meter Kit Diagnosis: Diabetes Mellitus 1 Each 0 05/05/2014 05/24/2024 Discontinued Start: 05-05-2014 Blood-Glucose Meter (ONE TOUCH ULTRA 2) monitoring kit 1 Each as needed. One Touch Meter Kit Diagnosis: Diabetes Mellitus 1 Each 0 05/05/2014 Active Comment on above: 1 Each as needed. On e Touch Meter Kit Diagnosis: Diabetes Mellitus Blood-Glucose Meter (ONETOUCH ULTRA2 METER) monitoring kit (14 sources) Start: 05-24-2024 End: 10-07-2024 Blood-Glucose Meter (ONETOUCH ULTRA2 METER) monitoring kit 1 Each as needed. One Touch Meter Kit Diagnosis: Diabetes Mellitus 1 Each 05/24/2024 10/07/2024 Discontinued (Cost of medication) Start: 05-24-2024 Blood-Glucose Meter (ONETOUCH ULTRA2 METER) monitoring kit 1 Each as needed. One Touch Meter Kit Diagnosis: Diabetes Mellitus 1 Each 05/24/2024 Active Blood-Glucose Meter,Continuo us (FREESTYLE JACQUE 3 READER) mis (14 sources) Start: 05-24-2024 End: 10-07-2024 Blood-Glucose Meter,Continuo us (FREESTYLE JACQUE 3 READER) [facility] [place]: Type 2 diabetes mellitus without complication, with long-term current use of insulin (HCC) Use to check blood sugar at least four (4) times daily. 1 Each 05/24/2024 10/07/2024 Discontinued (Cost of medication) Start: 05-24-2024 Blood-Glucose Meter,Continuous (FREESTYLE JACQUE 3 READER[place] [facility] [place]: Type 2 diabetes mellitus without complication, with long-term current use of insulin (HCC) Use to check blood sugar at least four (4) times daily. 1 Each 05/24/2024 Active Blood-Glucose Sensor (FREEST YLE JACQUE 3 PLUS SENSOR) marbella (14 sources) Start: 05-24-2024 End: 10-07-2024 Blood-Glucose Sensor (FREEST YLE JACQUE 3 PLUS SENSOR) marbella Indications: Type 2 diabetes mellitus without complication, with long-term current use of insulin (HCC) Apply new sensor every fifteen (15) days to upper arm. 6 Each 4 05/24/2024 10/07/2024 Discontinued (Cost of medication) Start: 05-24-2024 Blood-Glucose Sensor (FREESTYLE JACQUE 3 PLUS SENSOR) marbella Indications: Type 2 diabetes mellitus without complication, with long-term current use of insulin (HCC) Apply new sensor every fifteen (15) days to upper arm. 6 Each 4 05/24/2024 Active cholecalciferol 0.125 mg oral tablet (20 sources) Vitamin D Start: 04-29-2019 End: 06-14-2023 take 1 tablet by mouth once daily cholecalciferol (VITAMIN D-3) 5,000 unit tab Take 1 tablet by mouth once daily. 30 tablet 2 04/29/2019 06/14/2023 Discontinued (Other) Start: 04-26-2019 End: 10-07-2024 take 1 capsule by mouth once daily Cholecalciferol, Vitamin D3, (DIALYVITE VITAMIN D) 125 mcg (5,000 unit) cap Indications: Vitamin D deficiency Take 1 capsule by mouth once daily. 30 capsule 2 04/26/2019 10/07/2024 Discontinued (Course of therapy completed) Comment on above: Take 1 capsule by mo uth once daily. Take 1 tablet by jessica th once daily. Comp Stocking,Knee,Regular,M ed misc (14 sources) Start: 05-02-2024 End: 07-31-2024 Comp Stocking,Knee,Regular, Med misc 2 Each once daily. 2 Each 2 05/02/2024 07/31/2024 Start: 05-02-2024 End: 07-31-2024 Comp Stocking,Knee,Regular,M ed misc 2 Each once daily. 2 Each 2 05/02/2024 07/31/2024 Active cyclobenzaprine hydrochloride 10 mg oral tablet (2 sources) Muscle Relaxant Start: 11-15-2016 End: 09-02-2022 take 1 tablet by mouth three times daily as needed for muscle spasms Cyclobenzaprine 10 MG tablet Discontinued 10 mg PO THREE TIMES A DAY as needed for Muscle Spasm 20 0 November 15, 2016 12:00am September 02, 2022 11:42am dapagliflozin 5 mg oral tablet (11 sources) Sodium-Glucose Cotransporter 2 Inhibitor Start: 06-12-2024 End: 10-07-2024 take 1 tablet by mouth once daily at breakfast dapagliflozin propanediol (FARXIGA) 5 mg tablet Take 1 tablet by mouth daily with breakfast. 30 tablet 5 06/12/2024 10/07/2024 Discontinued (Cost of medication) Start: 05-13-2024 Farxiga 5 mg o ral tablet Dose : 5 mg = 1 tab(s), Oral, qAM, # 30 tab(s), 0 Refill(s), Pharmacy: [facility], 170.2, cm, 05/10/24 4:14:00 EST, Height, kg, 05/11/24 5:35:00 EST, Dosing Weight Start Date: 05/13/24 Status: Ordered Quantity: 30.0 Unit: tab(s) Repeat number: 1 docusate sodium 100 mg oral capsule (2 sources) Start: 05-07-2024 End: 11-22-2024 take 1 capsule by mouth twice daily Docusate Sodium (Colace) 100 mg capsule Discontinued 100 mg PO TWICE A DAY 60 3 May 07, 2024 1:00am November 22, 2024 8:18am empagliflozin 25 mg oral tablet (20 sources) Sodium-Glucose Cotransporter 2 Inhibitor Start: 05-24-2021 End: 06-14-2023 take 1 tablet by mouth once daily in the morning empagliflozin (JARDIANCE) 25 mg tablet Indications: Type 2 diabetes mellitus without complication, with long-term current use of insulin (HCC) TAKE 1 TABLET BY MOUTH ONCE DAILY IN THE MORNING 30 tablet 0 02/06/2023 06/14/2023 Discontinued (Other) Comment on above: TAKE 1 TABLET BY JESSICA ONCE DAILY IN THE MORNING folic acid 1 mg oral tablet (2 sources) Start: 11-11-2023 End: 11-25-2023 folic acid 1 mg oral tablet Dose : 1 mg = 1 tab(s), Oral, qDay, # 14 tab(s), 0 Refill(s), Pharmacy: [id number], 167.6, cm, 11/10/23 20:01:00 EDT, Height, kg, 11/10/23 20:01:00 EDT, Dosing Weight Start Date: 11/11/23 Stop Date: 11/25/23 Status: Ordered Quantity: 14.0 Unit: tab(s) Repeat number: 1 glipiZIDE 5 mg oral tablet (20 sources) Sulfonylurea Start: 11-15-2016 End: 06-14-2023 take 1 tablet by mouth twice daily before mealtime Glipizide 5 MG tablet Discontinued 5 mg PO TWICE DAILY BEFORE MEALS November 15, 2016 12:00am September 02, 2022 11:43am Comment on above: Take 1 tablet by jessica th twice daily before meals. TAKE 1 TABLET BY JESSICA TH TWICE DAILY BEFORE MEALS ibuprofen 800 mg oral tablet (20 sources) Nonsteroidal Anti-inflammatory Drug Start: 08-07-2012 End: 10-07-2024 take 1 tablet by mouth every eight hours as needed ibuprofen 800 mg tablet Take 1 tablet by mouth every 8 hours as needed (FOR PAIN. TAKE WITH FOOD). 20 tablet 0 08/07/2012 10/07/2024 Discontinued (Course of therapy completed) Comment on above: Take 1 tablet by jessica th every 8 hours as needed (FOR PAIN. TAKE WITH FOOD). Insulin Glargine-Yfgn 100 unit/mL (3 mL) Insulin Pen (2 sources) Start: 09-02-2022 End: 05-03-2024 Insulin Glargine-Yfgn 100 unit/mL (3 mL) Insulin Pen Discontinued 30 U SC AT BEDTIME 15 0 September 02, 2022 12:00am May 03, 2024 11:32am 3 ml insulin lispro 100 unt/ml pen injector (20 sources) Insulin Analog Start: 11-11-2023 End: 02-09-2024 Insulin Lispro KwikPen 100 units/mL injectable solution Dose : 6 unit(s) = 0.06 mL, Subcutaneous, TIDAC, # 16.2 mL, 0 Refill(s), Pharmacy: [id number], 167.6, cm, 11/10/23 20:01:00 EDT, Height, kg, 11/10/23 20:01:00 EDT, Dosing Weight Start Date: 11/11/23 Stop Date: 02/09/24 Status: Ordered Quantity: 16.2 Unit: mL Repeat number: 1 Start: 09-02-2022 End: 05-03-2024 Insulin Lispro (Humalog Kwik pen Insulin) 100 unit/mL Insulin Pen Discontinued 6 U SC .qac 15 September 02, 2022 12:00am May 03, 2024 11:33am Please contact the information source for Protocol details. Start: 09-10-2021 End: 10-07-2024 insulin lispro (HUMALOG KWIK PEN INSULIN) 100 unit/mL Indications: Type 2 diabetes mellitus with both eyes affected by mild nonproliferative retinopathy without macular edema, with long-term current use of insulin (HCC) 12 units 3 times daily 5 Pen 11 09/10/2021 10/07/2024 Discontinued Start: 05-14-2021 End: 09-10-2021 insulin lispro (HUMALOG KWIK PEN INSULIN) 100 unit/mL 12 units 3 times daily 5 Pen 11 05/14/2021 09/10/2021 Discontinued Comment on above: 12 units 3 times ricardo ly lisinopril 10 mg oral tablet (20 sources) Angiotensin Converting Enzyme Inhibitor Start: 3 End: 5 take 1 tablet by mouth once daily Lisinopril 10 mg tablet Discontinued 10 mg PO DAILY 90 3 October 11, 2022 12:00am November 22, 2024 8:17am Start: 09-02-2022 End: 10-11-2022 take 1 tablet by mouth once daily Lisinopril 2.5 mg tablet Discontinued 2.5 mg PO DAILY 30 0 September 02, 2022 12:00am October 11, 2022 3:12pm Start: 09-23-2020 End: 06-14-2023 take 1 tablet by mouth once daily lisinopril (ZESTRIL, PRINIVIL) 20 mg tablet Take 1 tablet by mouth once daily. 30 tablet 3 09/10/2021 06/14/2023 Discontinued Comment on above: Take 1 tablet by jessica th once daily. 24 hr metFORMIN hydrochloride 500 mg extended release oral tablet (20 sources) Biguanide Start: 2 End: 4 take 2 tablets by mouth twice daily at mealtime metFORMIN ER (GLUCOPHAGE XR) 500 mg 24 hr tablet Take 2 tablets by mouth twice daily with meals. 360 tablet 0 01/27/2022 06/14/2023 Discontinued (Other) Start: 05-24-2021 End: 09-07-2021 take 2 tablets by mouth twice daily at mealtime metFORMIN ER (GLUCOPHAGE XR) 500 mg 24 hr tablet Take 2 tablets by mouth twice daily with meals. 360 tablet 0 05/24/2021 09/07/2021 Discontinued Start: 11-15-2016 End: 09-02-2022 take 1 tablet by mouth four times daily Metformin 1,000 MG tablet Discontinued 1000 mg PO 4 TIMES DAILY November 15, 2016 12:00am September 02, 2022 11:43am Comment on above: Take 2 tablets by mo ut twice daily with meals. Multivitamin (Daily Multiple) 1 EACH tablet (2 sources) Start: 017 End: 023 take 1 tablet by mouth once daily Multivitamin (Daily Multiple) 1 EACH tablet Discontinued 1 NMA PO DAILY November 15, 2016 12:00am October 11, 2022 2:35pm Multivitamin (Daily Multiple) tablet (2 sources) Start: 023 End: 025 Multivitamin (Daily Multiple) tablet Discontinued 1 {tbl} PO DAILY October 11, 2022 2:34pm May 03, 2024 11:33am naproxen 500 mg oral tablet (2 sources) Nonsteroidal Anti-inflammatory Drug Start: 017 End: 025 take 1 tablet by mouth twice daily as needed Naproxen 500 MG tablet Discontinued 500 mg PO TWICE DAILY NEEDED November 15, 2016 12:00am May 03, 2024 11:33am polyethylene glycol 3350 13217 mg powder for oral solution (20 sources) Osmotic Laxative Start: 020 End: 024 polyethylene glycol 3350 (MIRALAX, GLYCOLAX) 17 gram/dose powder Take 17 g by mouth once daily. Take one (1) capful in 8oz of liquid each day. 527 g 11 10/09/2019 06/14/2023 Discontinued (Other) Comment on above: Take 17 g by mouth o nce daily. Take one (1) capful in 8oz of liquid each day. promethazine hydrochloride 25 mg oral tablet (20 sources) Phenothiazine Start: End: take 1 tablet by mouth every six hours as needed for nausea promethazine (PHENERGAN) 25 mg tablet Indications: Acute gastroenteritis Take 1 tablet by mouth every 6 hours as needed for Nausea/Vomiting. 30 tablet 0 06/01/2019 06/14/2023 Discontinued (Other) Comment on above: Take 1 tablet by jessica th every 6 hours as needed for Nausea/Vomiting. terbinafine 250 mg oral tablet (20 sources) Allylamine Antifungal Start: End: take 1 tablet by mouth once daily terbinafine HCl (LAMISIL) 250 mg tablet Take 1 tablet by mouth once daily. 30 tablet 2 10/22/2019 06/14/2023 Discontinued (Other) Comment on above: Take 1 tablet by jessica th once daily. ticagrelor 90 mg oral tablet (20 sources) Start: End: take 1 tablet by mouth twice daily Ticagrelor (Brilinta) 90 mg tablet Discontinued 90 mg PO TWICE A DAY 60 February 02, 2024 3:31pm May 07, 2024 4:14pm Comment on above: Take 1 tablet by jessica th twice daily. Take 1 tablet by jessica th twice daily Take by mouth. [facility] vitamin e 100 unt oral capsule (2 sources) Start: End: take 1 capsule by mouth once daily Vitamin E 100 UNIT capsule Discontinued 100 U PO DAILY November 15, 2016 12:00am October 11, 2022 2:34pm Problems Active Problems Problem Classification Problem Date Documented Da te Episodic/Chronic Abdominal pain (2 sources) Generalized abdominal pain; Translations: [Generalized abdominal pain] 09-10-2022 Episodic Acute myocardial infarction (2 sources) Myocardial infarction; Translations: [Non-ST elevation (NSTEMI) myocardial infarction] 09-10-2022 Chronic Acute posthemorrhagic anemia (1 source) Acute posthemorrhagic anemia; Translations: [Acute posthemorrhagic anemia] Episodic Congestive heart failure; nonhypertensive (12 sources) Heart failure; Translations: [Heart failure, unspecified] Onset: 05-09-2024 Chronic Contraceptive and procreative management (7 sources) Patient encounter status; Translations: [Encounter for other general counseling and advice on procreation] Episodic Coronary atherosclerosis and other heart disease (9 sources) Coronary atherosclerosis; Translations: [Atherosclerotic heart disease of [place] coronary artery without angina pectoris] Onset: 11-10-2023 Chronic Deficiency and other anemia (2 sources) Iron deficiency anemia; Translations: [Iron deficiency anemia, unspecified] Episodic Deficiency and other anemia (6 sources) Anemia; Translations: [Anemia, unspecified] Onset: 05-09-2024 Episodic Diabetes mellitus with complications (20 sources) Type 2 diabetes mellitus; Translations: [DM (diabetes mellitus), type 2, uncontrolled, with renal complications] Onset: 07-04-2012 Resolved: 10-20-2017 01-21-2015 Chronic Diabetes mellitus without complication (20 sources) Type 2 diabetes mellitus without complication; Translations: [Type 2 diabetes mellitus without complications] Onset: 11-19-2015 Resolved: 10-20-2017 Chronic Disorders of lipid metabolism (20 sources) Hyperlipidemia; Translations: [Hyperlipidemia, unspecified] Onset: 11-19-2015 11-19-2015 Chronic Essential hypertension (20 sources) Essential hypertension; Translations: [Essential (primary) hypertension] Onset: 11-12-2014 11-12-2014 Chronic Genitourinary symptoms and ill-defined conditions (2 sources) Albuminuria ; Translations: [Proteinuria, unspecified] Episodic Hypertension with complications and secondary hypertension (4 sources) Hypertensive crisis; Translations: [Hypertensive crisis, unspecified] Onset: 11-10-2023 Chronic Menopausal disorders (1 source) Perimenopausal state; Translations: [Menopausal and female climacteric states] Chronic Nausea and vomiting (2 sources) Nausea and vomiting; Translations: [Nausea with vomiting, unspecified] 09-10-2022 Episodic Neoplasms of unspecified nature or uncertain behavior (2 sources) Thrombocytosis; Translations: [Thrombocythemia] 05-15-2024 Episodic Open wounds of head; neck; and trunk (2 sources) Facial laceration ; Translations: [Laceration without foreign body of other part of head, initial encounter] 09-11-2022 Episodic Other aftercare (1 source) Removal of sutures done; Translations: [Encounter for removal of sutures] Episodic Other aftercare (2 sources) Blood transfusion finding; Translations: [Blood transfusion, without reported diagnosis] 05-15-2024 Episodic Other aftercare (2 sources) Long-term current use of anticoagulant; Translations: [penitentiary (current) use of anticoagulants] 05-15-2024 Episodic Other aftercare (1 source) Other parts counterman (current) drug therapy; Translations: [Medication management] Onset: 10-07-2024 Episodic Other circulatory disease (2 sources) H/O: heart failure; Translations: [Personal history of other diseases of the circulatory system] 05-15-2024 Episodic Other circulatory disease (4 sources) H/O: heart disorder; Translations: [Personal history of other diseases of the circulatory system] 09-10-2022 Episodic Other connective tissue disease (1 source) Pain in finger of right hand; Translations: [Pain in right finger(s)] Episodic Other female genital disorders (3 sources) Abnormal uterine bleeding; Translations: [Abnormal uterine and vaginal bleeding, unspecified] Chronic Other female genital disorders (1 source) Noninflammatory disorder of the female genital organs; Translations: [Other specified noninflammatory disorders of uterus] Episodic Other gastrointestinal disorders (20 sources) Constipation; Translations: [Constipation, unspecified] 10-28-2015 Episodic Other lower respiratory disease (3 sources) Dyspnea; Translations: [Shortness of breath] Onset: 05-09-2024 05-01-2024 Episodic Other nervous system disorders (1 source) Numbness of finger; Translations: [Anesthesia of skin] Episodic Other skin disorders (1 source) Callosity on hand; Translations: [Corns and callosities] 12-23-2022 Episodic Residual codes; unclassified (1 source) Noncompliance with treatment; Translations: [Patient's noncompliance with other medical treatment and regimen due to unspecified reason] Onset: 11-10-2023 Episodic Residual codes; unclassified (4 sources) Bilateral lower limb edema; Translations: [Localized edema] 05-01-2024 Episodic Residual codes; unclassified (2 sources) Noncompliance with medication regimen; Translations: [Noncompliance with medication regimen] 05-01-2024 Episodic Sprains and strains (2 sources) Low back strain; Translations: [Strain of muscle, fascia and tendon of lower back, initial encounter] 11-17-2016 Episodic Unclassified (1 source) Acidosis, unspecified; Translations: [Acidosis, unspecified] Onset: 11-09-2023 Unclassified (1 source) Thrombocytosis, unspecified; Translations: [Thrombocytosis, unspecified] Onset: 05-15-2024 Past or Other Problems Problem Classification Problem Date Documented Date Episodic/Chronic Coronary atherosclerosis and other heart disease (4 sources) Stented coronary artery; Translations: [Presence of coronary angioplasty implant and graft] Onset: 09-01-2022 09-05-2022 Episodic Comment on above: successful PCI of LA D/90% stenosis proximal to mid LAD stent using drug-eluting stent 2.75 x 18 mm resolute Geovanny Deficiency and other anemia (2 sources) Anemia, unspecified; Translations: [Anemia, unspecified] Onset: 05-15-2024 Episodic Deficiency and other anemia (1 source) Iron deficiency anemia, unspecified; Translations: [Iron deficiency anemia, unspecified] Onset: 06-10-2024 Episodic Diabetes mellitus without complication (4 sources) Hyperglycemia; Translations: [Hyperglycemia, unspecified] Onset: 05-09-2024 Episodic Fluid and electrolyte disorders (5 sources) Acidosis; Translations: [Acidosis, unspecified] Onset: 05-15-2024 Episodic Nonmalignant breast conditions (20 sources) Fat necrosis of breast; Translations: [Fat necrosis of breast] Onset: 10-15-2015 10-15-2015 Episodic Other aftercare (2 sources) penitentiary (current) use of insulin; Translations: [Type 2 diabetes mellitus with both eyes affected by mild nonproliferative retinopathy without macular edema, with long-term current use of insulin (HCC)] Onset: 03-29-2018 Episodic Other lower respiratory disease (1 source) Shortness of breath; Translations: [SOB (shortness of breath)] Onset: 05-01-2024 Episodic Other nutritional; endocrine; and metabolic disorders (20 sources) Body mass index 25-29 - overweight; Translations: [Overweight] Onset: 07-04-2012 07-04-2012 Episodic Other screening for suspected conditions (not mental disorders or infectious disease) (20 sources) Abnormal findings on diagnostic imaging of breast; Translations: [Other abnormal and inconclusive findings on diagnostic imaging of breast] Onset: 10-13-2015 10-13-2015 Episodic Other skin disorders (20 sources) Hidradenitis; Translations: [Hidradenitis suppurativa] Onset: 09-26-2011 09-26-2011 Episodic Residual codes; unclassified (1 source) Localized edema; Translations: [Bilateral leg edema] Onset: 05-02-2024 Episodic Unclassified (1 source) Acidosis, unspecified; Translations: [Acidosis, unspecified] Onset: 11-09-2023 Unclassified (1 source) Patient encounter status 10-08-2024 Results Test Name Value Interpretation Reference Range Facility [facility] 12-20-2024 [facility] CNPN Telephone (PHMEWO) MARIELLA RAMIREZ ([id number]) 1970 F CHT Date Time Provider Department 12/11/24 OBED HERNANDEZO During your visit today, we recorded the following information about you: Obed Hernandez [facility] 12/11/2024 3:46 PM Signed Called patient for scheduled phone appt today. Unable to reach x 3, LMOM x 2. Primary Care Pharmacy Rescheduling Outreach Call center, please contact patient and reschedule telephone visit for Diabetes management within ~4 week(s). (Visit length: 30 minutes) [facility] 3:45 PM Emy Rodriguez [facility] [place] 12/11/2024 4:03 PM Signed Called pt. to r/s missed appt. LVM. First attempt. Emy Rodriguez [facility] 12/12/2024 2:28 PM Signed Telephoned the patient to schedule a new Primary Care pharmacy appt. Left a message. Made two attempts to contact the patient. Patient does not have MyChart. If the patient returns a call, an appt will be scheduled. Emy Rodriguez [facility] 12/20/2024 2:19 PM Addendum Final attempt.made LVM. Pt. discharge process is complete at this time.Will route to [facility] as an FYI. Made two attempts to contact the patient. Patient does not have MyChart. If the patient returns a call, an appt will be scheduled. Obed Hernandez whitley 12/25/2024 12:58 PM Signed Noted, thanks for trying. Per endo note on 11/22/24, I reviewed with her she can either follow Endocrinology or Pharmacy, rather than following both for the same condition, and she would like to continue with us Forwarding to PCP that patient prefers to no longer follow with pharmacy services. Care Transition Back to PCP Our mutual patient, Mariella Ramirez, who was referred to primary care pharmacy services for Diabetes management, has declined pharmacy services at this time.. We will not be scheduling further follow up with pharmacy at this time. They have been encouraged to follow up with you for ongoing management. As always, you may refer Mariella Ramirez back to pharmacy for management in the future. Next PCP team appointment: not scheduled Thank you for utilizing primary care pharmacy services. Please contact Obed Hernandez PharmD with any questions about this script ([phone]) Allergies As of Date: 12/11/2024 Noted Allergy Reaction STEFFI INHIBITORS 01/29/2014 3 - Cough LATEX 09/21/2011 2 - Rash MORPHINE 05/02/2024 8 - GI Upset Comments: Terrible vomitting Date Reviewed: 11/22/2024 Reviewed by: Manuela Shepherd MA - Fully Assessed Reason for Visit: Missed Appointment [1304] Cmt: Primary care reschedule Prescriptions as of 12/25/2024 - Blood-Glucose Sensor (DEXCOM G7 SENSOR) marbella 1 each every 10 days. - insulin glargine (LANTUS SOLOSTAR U-100 INSULIN) 100 unit/mL (3 mL) Inject 32-34 Units subcutaneously daily at bedtime. - carvedilol (COREG) 3.125 mg tablet Take 1 tablet by mouth two times a day with meals. - TURMERIC ORAL Take by mouth once daily. - Biotin 800 mcg tab Take 1 tablet by mouth once daily. - ascorbic acid, vitamin C, (VITAMIN C) 500 mg tablet Take 500 mg by mouth once daily. - MEDICATION, NON-DATABASE Zinc 30mg by mouth daily - MEDICATION, NON-DATABASE Purdentix supplement daily (for teeth and gum health) - MEDICATION, NON-DATABASE Sugar Reverse supplement daily - MEDICATION, NON-DATABASE JOANNA supplement as needed for constipation - ferrous sulfate 325 mg (65 mg iron) EC tablet Take 325 mg by mouth three times a day. - atorvastatin (LIPITOR) 40 mg tablet TAKE 1 TABLET BY MOUTH ONCE DAILY AT BEDTIME FOR CHOLESTEROL - clopidogrel (PLAVIX) 75 mg tablet Take 1 tablet by mouth once daily. - pantoprazole DR (PROTONIX) 40 mg tablet Take 1 tablet by mouth once daily. 30 minutes before eating. - furosemide (LASIX) 40 mg tablet Take 1 tablet by mouth once daily. - sacubitril-valsartan (ENTRESTO) 24-26 mg tablet Take 1 tablet by mouth two times a day. - alcohol swabs (ALCOHOL PADS) Test Three times a week. Insulin Dep? Yes E11.9 DM 2 - Insulin Hume, Disposable, (BD ULTRA-FINE SONU PEN NEEDLE) 32 gauge x /32 ndle 2Use one needle for each dose. 1/day. - MULTI-VITAMIN ORAL Take by mouth once daily. Meds Comments as of 05/02/2024: Not taking any of her medications as of appointment on 05/02/24. Wants to use natural remedies instead. Problem List As Of Date 12/11/2024 Noted Resolved Hidradenitis [L73.2] 09/26/2011 Overweight (BMI 25.0-29.9) [E66.3] 07/04/2012 DM (diabetes mellitus), type 2, uncontrolled, w*07/04/2012 Essential hypertension [I10] 11/12/2014 Abnormal finding on breast imaging [R92.8] 10/13/2015 Fat necrosis (segmental) of breast [N64.1] 10/15/2015 Constipation [K59.00] Type 2 diabetes mellitus without complication (*11/19/2015 10/20/2017 HLD (hyperlipidemia) [E78.5] 11/19/2015 Type 2 diabetes mellitus with both eyes affecte*03/29/2018 Encounter Status:Closed by OBED HERNANDEZ on 8 (more content not included)... Normal [facility] Anion gap in Serum or Plasma Ordered By: Nathan Nazario on 11-22-2024 Anion gap [Moles/Vol] 11 mmol/L 5-15 [facility] BUN/creatinine ratioOrdered By: Nathan Nazario on 11-22-2024 Urea nitrogen/Creatinine [Mass ratio] 17.5 mg/mg 10- [facility] Basic Metabolic Profile (BMP )on 11-22-2024 BUN/CRE 17.5 RATIO Normal - [facility] Comment on above: Performed By: #### L 500.4050, L3410.9999, L300.3900 #### [facility] [address] [place], [address] Calcium [Mass/Vol] 9.5 mg/dL Normal 7.6-11.0 [facility] Comment on above: Performed By: #### L 500.4050, L3410.9999, L300.3900 #### [facility] [address] [place], [address] Chloride [Moles/Vol] 92 mmol/L Low 98-108 [facility] Comment on above: Performed By: #### L 500.4050, L3410.9999, L300.3900 #### [facility] [address] [place], [address] CO2 [Moles/Vol] 26.9 mmol/L Normal 21.0-32.0 [facility] Comment on above: Performed By: #### L 500.4050, L3410.9999, L300.3900 #### [facility] [address] [place], [address] Creatinine [Mass/Vol] 1.42 mg/dL High 0.70-1.20 [facility] Comment on above: Performed By: #### L 500.4050, L3410.9999, L300.3900 #### [facility] [address] [place], [address] GAP 11 Normal 5-15 [facility] Comment on above: Performed By: #### L 500.4050, L3410.9999, L300.3900 #### [facility] [address] [place], [address] GFR/1.73 sq M.predicted among non-blacks MDRD (S/P/Bld) [Vol rate/Area] 45 mL/min/{1.73_m2} Low >60 [facility] Comment on above: Result Comment: mL/m in/1.73m2 CKD-EPI Creatinine Equation (2020) Performed By: #### L 500.4050, L3410.9999, L300.3900 #### [facility] [address] [place], [address] Glucose [Mass/Vol] 349 mg/dL High 70-99 [facility] Comment on above: Performed By: #### L 500.4050, L3410.9999, L300.3900 #### [facility] [address] [place], [address] Potassium [Moles/Vol] 4.2 mmol/L Normal 3.3-5.1 [facility] Comment on above: Performed By: #### L 500.4050, L3410.9999, L300.3900 #### [facility] [address] [place], [address] Sodium [Moles/Vol] 130 mmol/L Low 133-145 [facility] Comment on above: Performed By: #### L 500.4050, L3410.9999, L300.3900 #### [facility] [address] [place], [address] Urea nitrogen [Mass/Vol] 25 mg/dL High 4-19 [facility] Comment on above: Performed By: #### L 500.4050, L3410.9999, L300.3900 #### [facility] [address] [place], [address] CNOVon 11-22-2024 CNOV Office Visit (ENWSTR ) MARIELLA RAMIREZ ([id number]) 1970 F [facility] Date Time Provider Department 11/22/24 4:00 PM LINDA LOWERY During your visit today, we recorded the following information about you: Temperature Pulse Respiration Blood pressure 97.9 degrees 93/minute 16/minute 136/72 Weight Last Period 69.5 kg 10/24/24 Linda Lowery MD 11/23/2024 8:50 PM Addendum [facility] Initial Clinic Visit Note Referred by: Gerber Pnia MD Chief complaint: Poorly controlled Type 2 DM My final recommendations will be communicated back to the requesting physician by way of shared medical record or letter via US mail. History of Present Illness: -Initially diagnosed: she was diagnosed with GDM at 32 years old and with type DM at 47 years of age Patient reportedly was on multiple medications including metformin, Jardiance, Januvia, glipizide, and insulin, after which she discontinued all medications for natural way of treating She had a recent hospitalization in 04/2024 for dyspnea and cardiac issues, and was found to have severe hyperglycemia with hba1c of 18% after which she was again started on insulin Currently it appears from chart review that she is being managed by Pharmacy, [facility] . Symptoms -Polyuria: due to lasix -Polydipsia: not significant -Weight changes: lost weight before staring insulin, also due to work and irregular meals, now she is stable Complications: Cardiovascular -- Yes HTN, HLD, CAD, CHF Statin Use -- atorvastatin 40 mg daily Last ELENA/Retina Eval: several years ago, has been without medical crad for more than 3 years now Retinopathy -- unknown Nephropathy -- yes, from labs in 08/2022. Recent uACR pending STEFFI/ARB Use -- no Polyneuropathy -- no Foot Exam: unknown Obesity -- No Other -- No -Personal history of DKA or HHS-- in 04/2024 Personal history of pancreatitis-- No History of alcohol consumption--No Family history of thyroid cancer-- No Personal history of Urinary tract infections -- None is the past Diabetes Medications -Current regimen: lantus 32 units daily at bedtime -Misses doses: None -Adverse medication effects: none -Rotating injection sites: no -Previously Used DM Meds: Yes Lantus Metformin Glipizide Moraima Juliangaldino . Blood sugars -Self monitoring of blood sugar via fingerstick: once x daily - fasting as recommended by pharmacy -Brought blood glucose log for review: no, verbally -BG log reviewed: no --Fasting: Fasting blood glucose levels range from 97-110 mg/dL; one recent reading was 349 mg/dL non fasting on venous labs. --Prelunch: --- --Predinner: --- --Bedtime: --- . Hypoglycemia -Hypoglycemic episodes: none -Frequency and timing of hypoglycemia: N/A -Hypoglycemia awareness: unknown . 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 This also affects her meal timing and exercise -Exercise: -Diet: - Eats twice a day, fasting during night shifts . 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 PAST SURGICAL HISTORY OF 1995 Bilateral removal of breast tissue in axilla PAST SURGICAL HISTORY OF unsure R foot surgery - fusion vs bunionectomy, patient unsure Family History FAMILY HISTORY Problem Relation Age of Onset Cancer Father PROSTATE Alcohol/Drug Father Diabetes Father Hypertension Father Stroke Father Prostate Cancer Father Breast Cancer Maternal Grandmother Diabetes Paternal Uncle Stroke Paternal Uncle Breast Cancer Other MATERNAL COUSINS X2 Hypertension Other NIECE No Ocular Disease No Family History Social History Social History Tobacco Use Smoking status: Never Smokeless tobacco: Never Substance Use Topics Alcohol use: No Drug use: No Allergies ALLERGIES Allergen Reactions Steffi Inhibitors Cough Latex Rash Morphine GI Upset Terrible vomitting Current Medications Current Outpatient Medications Medication Sig Dispense Refill insulin glargine (LANTUS SOLOSTAR U-100 INSULIN) 100 unit/mL (3 mL) Inject 32-34 Units subcutaneously daily at bedtime. 33 mL 3 carvedilol (COREG) 3.125 mg tablet Take 1 tablet by mouth two times a day with meals. 60 tablet 1 TURMERIC ORAL Take by m (more content not included)... Normal [facility] Carbon dioxide, total [Moles /volume] in Central venous bloodOrdered By: Nathan Nazario on 11-22-2024 CO2 [Moles/Vol] 26.9 mmol/L 21.0-32.0 [facility] Cardiology Visit Reporton Cardiology Visit Report [facility] [address] [place] [address]. [address] [place] [address] OFFICE VISIT Date of Service: 11/22/24 MR#: [id number] Acct: [id number] Name: MARIELLA RAMIREZ Rep #: [id number] : 1970 Provider: MARYANN Comer Age/Sex: 54/F Location: [facility] Status: Signed HPI HPI History of Present Illness Details: Mariella Ramirez is a 54-year-old female who presents today for follow-up for monitoring of her cardiovascular health. Patient has a history of coronary artery disease status post stenting to her LAD 09/01/2022 after presenting to the emergency room with recurrent angina pectoris. She also has a history of hypertension and dyslipidemia along with diabetes. Patient was admitted to [facility] 05/03 - 05/07/2024 with concerns of severe iron deficiency anemia with a hemoglobin of 5.8. She did experience some lower extremity edema. Her aspirin and Brilinta were held at the time. Patient was then admitted to [facility] 05/09 - 05/14/2024 with acute exacerbation of chronic heart failure now with reduced ejection fraction of 40-45%. She was discharged on carvedilol 3.125 mg twice daily, Plavix, Farxiga, furosemide, Entresto and spironolactone. Since this hospitalization, she reports discontinuation of several of these medications. 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 Further ROS. Intake Vital Signs 05/06/24 11:31 11/22/24 07:06 Height 5 ft 7 in 5 ft 7 in Weight: 152 lb BMI 23.8 BP 118/87 H Blood Pressure Location Lt brachial Position Sitting Respiration 18 Pulse 88 Pulse Source Monitor Pulse Oximetry (%) 100 Intake Visit Reasons: 1 Y FU Piling Setter Required: No Is patient in pain?: No Allergies latex Allergy (Verified 11/22/24 08:02) Rash morphine Adverse Reaction (Verified 11/22/24 08:02) Nausea Medications ???Medication ???Instructions ???Recorded ???Confirmed ???Type acetaminophen 325 mg tablet 650 mg (2 x 325 mg) PO Q6H PRN PRN 09/02/22 11/22/24 Rx Pain 1-10 Or Fever >100.7 #0 tabs pen needle, diabetic 29 gauge x #100 ea 09/02/22 09/25/24 Rx 1/2 ascorbic acid (vitamin C) 500 mg 500 mg PO TID #90 tabs 05/07/24 Rx tablet (Vitamin C) ferrous sulfate 325 mg (65 mg 325 mg PO TID #90 tabs 05/07/24 Rx iron) tablet,delayed release pantoprazole 40 mg tablet,delayed 40 mg PO DAILY #30 tabs 05/07/24 11/22/24 Rx release (Protonix) atorvastatin 40 mg tablet (Lipitor) 40 mg PO QHS #30 tabs 11/22/24 11/22/24 Rx carvedilol 3.125 mg tablet 3.125 mg PO BID #60 tabs 11/22/24 11/22/24 Rx clopidogrel 75 mg tablet (Plavix) 75 mg PO QDAY #30 tabs 11/22/24 0 11/22/24 Rx furosemide 40 mg tablet (Lasix) 40 mg PO QAM 11/22/24 11/22/24 His tory insulin glargine 100 unit/mL (3 10 unit subcut BID 11/22/24 History mL) subcutaneous pen (Basaglar KwikPen U-100 Insulin) spironolactone 25 mg tablet 25 mg PO QDAY #30 tabs 11/22/24 Rx zinc gluconate 50 mg tablet 50 mg PO QDAY 11/22/24 11/22/24 Hi story Ejection fraction %: 60 Have you fallen in the past year?: No PFSH Medical History Acute anemia Chronic anticoagulation History of CAD (coronary artery disease) History of CHF (congestive heart failure) Hyperglycemia due to diabetes mellitus Transfusion of blood during current hospitalisation Anemia Hypertension Chest pain Hyperglycemia Essential hypertension Atherosclerotic heart disease of [place] coronary artery without angina pectoris History of CAD (coronary artery disease) Myocardial infarct Type 2 diabetes mellitus Surgical History Stented coronary artery (09/01/22) History of coronary artery stent placement ( 08/24/20) Family History Other Hypertension Social History Smoking Status: Never smoker alcohol intake: never substance use type: does not use caffeine: No ROS Const Const: Negative for fatigue, weakness, headache(s) or frequent falls Eyes Eyes: Negative for blurry vision ENT ENT: Negative for headache(s), dizziness or Nosebleed/epistaxis Cardio Chest Pain: No Palpitations: No Edema: None Muscle aches with walking: None Resp Respiratory: Positive for SOB with activity and SOB at rest; Negative for SOB orthopnea SOB lying down GI GI: Negative nausea, vomiting, heartburn, bright, red blood in (more content not included)... Normal [facility] Chloride assayOrdered By: Patsy Nazario on 11-22-2024 Chloride [Moles/Vol] 92 mmol/L Low 98-108 [facility] Glomerular filtration rate ( GFR) estimation/1.73 sq m using serum, plasma, or whole bOrdered By: Nathan Nazario on 11-22-2024 GFR/1.73 sq M.predicted among non-blacks MDRD (S/P/Bld) [Vol rate/Area] 45 mL/min/{1.73_m2} Low >60 [facility] Comment on above: mL/min/1.73m2 CKD-EP I Creatinine Equation (2020) HEMOGLOBIN A1C (POC)on 11-22 HbA1c (Bld) [Mass fraction] 11.5 % Abnormal 4.3 - 5.6 % [facility] Comment on above: Location:[facility], [address], [place], [address] Point of care (POC) Hemoglobin A1c (HGBA1C) testing is intended to assess glucose control and provide a management tool for patients known to have diabetes and their healthcare providers. Target HGBA1C levels may depend on specific clinical circumstances. POC HGBA1C is not intended for use as a diagnostic or screening test; laboratory-based testing should be used for diagnostic purposes. The following information is supplemental and may not be applicable to specific diabetes management situations: The POC device scientific editor provides a normal range of 4.2% to 6.5% for the HGBA1C POC test. However, the [place] [employer] guidelines indicate that patients with HGBA1C in the range of 5.7% to 6.4% are at increased risk for development of diabetes and that intervention by lifestyle modification may be beneficial. A HGBA1C level greater than or equal to 6.5% is considered diagnostic of diabetes, pending confirmatory testing. Use of HGBA1C testing to evaluate glucose control may not be appropriate for patients with hemoglobin variants or other conditions (e.g. anemia) that alter red blood cell lifespan. Interpretation and review of laboratory results Abnormal [facility] Potassium measurement (mass/ volume)Ordered By: Nathan Nazario on 11-22-2024 Potassium (Unsp spec) [Mass/Vol] 4.2 mmol/L 3.3-5.1 [facility] Serum creatinine measurement (mass/volume)Ordered By: Nathan Nazario on 11-22-2024 Creatinine [Mass/Vol] 1.42 mg/dL High 0.70-1.20 [facility] Serum glucose measurement (m ass/volume)Ordered By: Nathan Nazario on 11-22-2024 Glucose [Mass/Vol] 349 mg/dL High 70-99 [facility] Serum or plasma calcium eva urement (mass/volume)Ordered By: Nathan Nazario on 11-22-2024 Calcium [Mass/Vol] 9.5 mg/dL 7.6-11.0 [facility] Serum or plasma urea nitroge n measurement (mass/volume)Ordered By: Nathan Nazario on 11-22-2024 Urea nitrogen [Mass/Vol] 25 mg/dL High 4-19 [facility] Sodium levelOrdered By: Lilia Nazario on 11-22-2024 Sodium [Moles/Vol] 130 mmol/L Low 133-145 [facility] CNPNon 10-28-2024 CNPN Telephone (PHMEWO) MARIELLA RAMIREZ ([id number]) 1970 F [facility] Date Time Provider Department 10/28/24 OBED HERNANDEZ PHMEWO During your visit today, we recorded the following information about you: [facility] 10/28/2024 11:36 AM Signed [facility] ([phone]) to see if patient would be able to get free Jardiance through their program. Unable to speak with a person so LMOM requesting a call back. Obed Hernandez PharmD, [facility] Primary Care Clinical Pharmacist [facility] 11/04/2024 8:59 AM Signed Someone from [facility] returned the call last week. Patient would not be able to receive Jardiance through the clinic unless she received care there. The clinic also does not usually have a consistent supply of Jardiance in stock. The worker who returned my call said she could reach out to a Jardiance rep to see if they might be able to agree to receiving a consistent supply of free samples through a drug rep. She plans to call me back later with that information. Will await call. If they can get in Jardiance, I will confirm with [facility] if the patient would be able to receive care there, then I will plan to discuss that option with the patient to see if interested. Obed Hernandez PharmD, [facility] Primary Care Clinical Pharmacist [facility] 11/11/2024 2:21 PM Signed Have not heard back from [facility] yet. I called again and spoke with tipple engineer, Amada. She took down my information and said would call back. I informed her of having a patient who may be looking to establish care with [facility] if can get a consistent supply of Jardiance in stock through samples. [facility] will return the call. Obed Hernandez PharmD, [facility] Primary Care Clinical Pharmacist [facility] 11/18/2024 3:43 PM Signed Raj called [facility] today to follow-up on question regarding getting a consistent Jardiance supply. Unable to speak with anyone. Will try calling again another time. Obed Hernandez PharmD, [facility] Primary Care Clinical Pharmacist [facility] 12/04/2024 11:38 AM Signed Have not heard back from [facility]. Tried calling again but unable to reach. Obed Hernandez PharmD [facility] Primary Care Clinical Pharmacist [facility] 12/05/2024 10:48 AM Signed Called [facility] again. LMOM requesting a call back. [facility] Clinical Pharmacist [facility]eder[facility] 12/11/2024 2:36 PM Signed Amada from [facility] returned a call and LMOM stating she spoke with a nurse, Obed, who said unfortunately they can not guarantee a consistent supply of Jardiance. Obed Hernandez PharmD, [facility] Primary Care Clinical Pharmacist Allergies As of Date: 10/28/2024 Noted Allergy Reaction STEFFI INHIBITORS 01/29/2014 3 - Cough LATEX 09/21/2011 2 - Rash MORPHINE 05/02/2024 8 - GI Upset Comments: Terrible vomitting Date Reviewed: 05/24/2024 Reviewed by: Gi Mae LPN - Fully Assessed Reason for Visit: Medication Question [4878] Cmt: [facility] Prescriptions as of 12/11/2024 - Blood-Glucose Sensor (DEXCOM G7 SENSOR) marbella 1 each every 10 days. - insulin glargine (LANTUS SOLOSTAR U-100 INSULIN) 100 unit/mL (3 mL) Inject 32-34 Units subcutaneously daily at bedtime. - carvedilol (COREG) 3.125 mg tablet Take 1 tablet by mouth two times a day with meals. - TURMERIC ORAL Take by mouth once daily. - Biotin 800 mcg tab Take 1 tablet by mouth once daily. - ascorbic acid, vitamin C, (VITAMIN C) 500 mg tablet Take 500 mg by mouth once daily. - MEDICATION, NON-DATABASE Zinc 30mg by mouth daily - MEDICATION, NON-DATABASE Purdentix supplement daily (for teeth and gum health) - MEDICATION, NON-DATABASE Sugar Reverse supplement daily - MEDICATION, NON-DATABASE JOANNA supplement as needed for constipation - ferrous sulfate 325 mg (65 mg iron) EC tablet Take 325 mg by mouth three times a day. - atorvastatin (LIPITOR) 40 mg tablet TAKE 1 TABLET BY MOUTH ONCE DAILY AT BEDTIME FOR CHOLESTEROL - clopidogrel (PLAVIX) 75 mg tablet Take 1 tablet by mouth once daily. - pantoprazole DR (PROTONIX) 40 mg tablet Take 1 tablet by mouth once daily. 30 minutes before eating. - furosemide (LASIX) 40 mg tablet Take 1 tablet by mouth once daily. - sacubitril-valsartan (ENTRESTO) 24-26 mg tablet Take 1 tablet by mouth two times a day. - alcohol swabs (ALCOHOL PADS) Test Three times a week. Insulin Dep? Yes E11.9 DM 2 - Insulin Hume, Disposable, (BD ULTRA-FINE SONU PEN NEEDLE) 32 gauge x 5/32 ndle 2Use one needle for each dose. 1/day. - MULTI-VITAMIN ORAL Take by mouth once daily. Meds Comments as of 05/02/2024: Not taking any of her medications as of appointment on 05/02/24. Wants to use natural remedies instead. Problem List As Of Date 10/28/2024 Noted Resolved Hidradenitis [L73.2] 09/26/2011 Overweight (BMI 25.0-29. (more content not included)... Normal [facility] MEGANMARIELLA Kris ([id number]) 1970 F T Date Time Provider Department 09/18/24 GERBER PINA During your visit today, we recorded the following information about you: Wendy Johnson, RN 09/18/2024 6:09 PM Signed Spent almost 40 mins on the phone with pt. She said several times that she has no insurance and is ineligible for financial assistance with [facility] because she makes too much $. Pt wanting to know what her last HgbA1c was. Last one drawn that we have record on was 05/02/24 and result was 18.0. Pt ended up in the hospital 05/03/24 and was in for 2 weeks. Pt states she has outstanding bills at [facility] so [facility] won't see her. Pt with multiple health issues. Pt crying off and on during conversation because she states she doesn't feel good. Last blood sugar on 07/29/24 was 515. Pt was to see Dr. Pina on 08/14 but failed to come in for the appt. Pt states she has a lot of stuff going on in her life. Asked pt if she has spoken to billing office at [facility]. She denies speaking with them. Pt given billing dept phone number for [facility] so she can talk with them and get payments up to date so she can see tail ripper since she is on blood thinner. Talked with pt about her medications. She states she is taking them all but then when discussed Lisinopril and some of the other meds prescribed by [facility], she states she isn't taking those because the office won't refill her meds without an appt and she can't get in for a couple months. Pt states she is taking her insulin but when questioned, she states that she ran out of her insulin glargine (Lantus) so she went back to using her insulin lispro (Humalog). Last script was sent 3 years ago. Pt states that yes she has had the insulin in her refrigerator for several years. But states the outdate on the pen is 04/2025. Pt is taking the Humalog since she is out of the Lantus and can't afford it. Pt states she has no way of taking her blood sugar as she never picked up her Freestyle Jacque. When asked, pt has not spoken to the pharmacy to see how they can help her get her medications and a meter or sensor. Encouraged pt to speak with them. Also spoke with pt about going to [facility] if need be. She says they couldn't help her either. When questioned further, she admits to not speaking with them for a few years. Informed pt that she must help herself. Per several areas, [facility] has attempted to get a hold of her but pt doesn't answer and either didn't have VM set up or VM is full. Informed pt that in order to help her, she needs to answer her phone. Informed pt that she needs to get medical care and if feels bad or something urgent happens, she will have to call 911 or go to ER and worry about finances later. Informed what high blood sugar can do to her body. Msg sent to Perla Malagon financial counselor to follow up with pt but per FYIs, pt had called in and spoke with them twice already today and per those FYI notes, it appears pt does have [employer] insurance but [facility] does not accept that. Pt also stated to someone that she is looking into a different market place insurance and will call back once it is active. Will route this msg to [employer] Cadence Analyst as well to see if there is any resources she may know for pt. Gerber Pina DO 09/18/2024 8:28 PM Signed Noted, this is something I am forwarding to social work for suggestions on how to help her as well DO Salbador Lutz Erin, [employer] SUPERVISOR 09/19/2024 8:34 AM Signed Sw will give patient a call after speaking with [facility]. If [employer] insurance is active. Would need to see provider in network. [facility] would be a good place to see about assistance with healthcare needs as they have Maria Elena-Flight Surgeon there that could help patient with financial support needs. Tito will confirm with [facility] if Yu is still active,and if so, will see what patient says in regards to speaking with [facility]. Maria Elena could also see about assisting patient with possibly locating a new [employer] plan, if interested, and if at this time she could enroll in a different plan. SteveperfectoIrma quinn, FIRST LINE PRODUCTION SUPERVISOR 09/19/2024 10:43 AM Signed Perla had noted Gigi [employer] plan is out of network with [employer]. Would need to change plan through the [employer] Call Center. Irma Siu, FIRST LINE PRODUCTION SUPERVISOR 09/19/2024 10:43 AM Signed Tito called patient to discuss options and or calling [employer] to cancel. Patient notes that she did call and cancel [employer] plan, but was then told that she is over income for our assistance. Sw noted Zeynep Mejía could be an option right now, until she is able to work out [employer] in network plan. Patients states I don't want to talk about this right now. Sw noted patient can always reach back out to when she would like to (more content not included)... [facility] MARIELLA RAMIREZ ([id number]) 1970 F [facility] Date Time Provider Department 08/05/24 OBED HERNANDEZ During your visit today, we recorded the following information about you: Obed Hernandez [facility] 08/05/2024 9:22 AM Signed Called patient for scheduled phone encounter. Unable to reach x 3 - call goes straight to voicemail, however the voicemail box is not set up yet so unable to leave a message. I also tried calling the work phone number but the person/tipple engineer who answered the phone didn't know a Mariella Ramirez. MyChart is not active. Will see if PSS team is able to reach patient. Obed Hernandez, PharmD, BCPS Primary Care Clinical Pharmacist Melly Bentley 08/06/2024 9:54 AM Signed 1st attempt - No answer and no voicemail available. Called First patient contact and there are calling restrictions that won't allow the call to go through. Called Second Patient Contact and asked to have patient call our office. Mellysapphire Bentley Melly 08/12/2024 8:56 AM Addendum 2nd attempt - no answer and no voicemail set up. Called work number and left message for patient to call PCP Office. When she calls, please reschedule Pharmacy appointment. Gwendolyn Ines 08/13/2024 11:26 AM Signed 3rd, couldn't lvm Allergies As of Date: 08/05/2024 Noted Allergy Reaction STEFFI INHIBITORS 01/29/2014 3 - Cough LATEX 09/21/2011 2 - Rash MORPHINE 05/02/2024 8 - GI Upset Comments: Terrible vomitting Date Reviewed: 05/24/2024 Reviewed by: Gi Mae LPN - Fully Assessed Prescriptions as of 08/13/2024 - carvedilol (COREG) 3.125 mg tablet Take 1 tablet by mouth two times a day with meals. - atorvastatin (LIPITOR) 40 mg tablet TAKE 1 TABLET BY MOUTH ONCE DAILY AT BEDTIME FOR CHOLESTEROL - pantoprazole DR (PROTONIX) 40 mg tablet Take 1 tablet by mouth once daily. 30 minutes before eating. - furosemide (LASIX) 40 mg tablet Take 1 tablet by mouth once daily. - clopidogrel (PLAVIX) 75 mg tablet Take 1 tablet by mouth once daily. - dapagliflozin propanediol (FARXIGA) 5 mg tablet Take 1 tablet by mouth daily with breakfast. - spironolactone (ALDACTONE) 25 mg tablet Take 1 tablet by mouth once daily. - sacubitril-valsartan (ENTRESTO) 24-26 mg tablet Take 1 tablet by mouth two times a day. - insulin glargine (LANTUS SOLOSTAR U-100 INSULIN) 100 unit/mL (3 mL) Inject 30 Units subcutaneously daily at bedtime. - Blood-Glucose Meter,Continuous (FREESTYLE JACQUE 3 READER) [facility] Use to check blood sugar at least four (4) times daily. - Blood-Glucose Sensor (FREESTYLE JACQUE 3 PLUS SENSOR) marbella Apply new sensor every fifteen (15) days to upper arm. - Lancets Test blood sugar(s) 1 times daily. Dx: DM2. Insulin: No - Blood-Glucose Meter (ONETOUCH ULTRA2 METER) monitoring kit 1 Each as needed. One Touch Meter Kit Diagnosis: Diabetes Mellitus - Lancets Test Three times a week. Insulin Dep? Yes E11.9 DM 2 - alcohol swabs (ALCOHOL PADS) Test Three times a week. Insulin Dep? Yes E11.9 DM 2 - blood sugar diagnostic (BLOOD GLUCOSE TEST) test strip Test blood sugar(s) 3 times daily. Dx: Type 2 DM - Controlled E11.9 Insulin: Yes - lisinopril (ZESTRIL) 10 mg tablet Take 1 tablet by mouth once daily. - metoprolol succinate ER (TOPROL XL) 100 mg Take 1 tablet by mouth two times a day. - ticagrelor (BRILINTA) 90 mg tablet Take by mouth. [facility] - insulin lispro (HUMALOG KWIKPEN INSULIN) 100 unit/mL 12 units 3 times daily - blood sugar diagnostic (BLOOD GLUCOSE TEST) test strip Test blood sugar(s) one times daily. Dx: 250.00. Insulin: No - BABY ASPIRIN ORAL Take by mouth. - Cholecalciferol, Vitamin D3, (DIALYVITE VITAMIN D) 125 mcg (5,000 unit) cap Take 1 capsule by mouth once daily. - Insulin Hume, Disposable, (BD ULTRA-FINE SONU PEN NEEDLE) 32 gauge x 5/32 ndle 2Use one needle for each dose. 1/day. - blood sugar diagnostic (RELION PRIME TEST STRIPS) test strip Diabetes mellitus type 2, non insulin dependent, testing 1x/day, Use as instructed - ONETOUCH ULTRA TEST test strip USE TO CHECK GLUCOSE ONCE DAILY - ibuprofen 800 mg tablet Take 1 tablet by mouth every 8 hours as needed (FOR PAIN. TAKE WITH FOOD). - MULTI-VITAMIN ORAL Take by mouth. Meds Comments as of 05/02/2024: Not taking any of her medications as of appointment on 05/02/24. Wants to use natural remedies instead. 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 [facility] (FAMPWS) MARIELLA RAMIREZ ([id number]) 1970 F T Date Time Provider Department 07/30/24 [facility] During your visit today, we recorded the following information about you: Melly Colindres RN 07/30/2024 10:27 AM Signed Miracle from [facility] calls with an urgent lab value. Glucose level is 515. Cecy Barboza APRN.TIFFANIE 07/30/2024 10:34 AM Signed It looks like this is not uncommon for patient. Please call her to see how she is feeling. I see she is already scheduled to see Dr. Pina at the end of the month. Is she taking the prescribed Farxiga, Humalog, and Lantus that are on her medication list and taking them correctly? Any other medications she may be taking for her DM? Cecy Barboza APRN.Melly Gonzalez RN 07/30/2024 11:32 AM Signed TC patient, left message for patient to call back and speak with a triage nurse regarding results and provider instructions. BOYD Canchola Stephanie, RN 07/30/2024 3:56 PM Signed Patient calls back and states that she does not eat well. Patient reports that she does not take Humalog because she does not want her sugars to bottom out. Patient does take Lantus but only when she eats. Patient take 30 units of Lantus at bedtime. Patient reports that she started Farxiga a couple of weeks ago again. Patient reports that she could not afford medication. Patient states that she takes an all natural medication called Sugar Release. Please review and advise, BOYD Canchola Jordan L, DO 07/30/2024 5:00 PM Signed Please set her up an appt with the pharmacist DO Mc Lutz Stephanie 07/31/2024 9:27 AM Signed 1st attempt - Left message for patient to return call. When patient calls, please schedule pharmacy consult. Xiomy Gutiérrez RN 07/31/2024 1:07 PM Signed Patient calls back. Pharmacy consult scheduled for 08/05/2024. Patient asking if the Entresto should be started back up. She thought if her potassium was within limits then it would be started again . I didn't see any notes saying she shouldn't have been taking it? Call placed to [facility]. Patient hasn't filled prescription of Estresto since sent to Pharmacy 06/12/2024. Please advise Also, requesting another prescription of pantoprazole to go to the pharmacy as she has misplaced hers. Patient has refills at pharmacy. Notified to contact pharmacy as she might have to pay out of pocket since insurance won't allow refill. [facility] to refill Pantoprazole from prescription on File. Patient will have to pay out of pocket through [facility]. Cost will be $15.66. Patient notified. BOYD Villalpando Jordan L, DO 07/31/2024 10:47 PM Signed Entresto is a cardiac medication prescribed by [facility], needs to ask her specialist about this DO Jens Lutz Stephanie, BOYD 08/01/2024 10:16 AM Signed Patient calls back and notified of below. Patient states that she does not see a tail ripper. Patient reports that she was prescribed this while she was in hospital. Patient was discharged from [facility] on 05/14/2024. Patient had hospital follow up visit with [place] on 05/24/2024. Patient was supposed to follow up with cardiology 2 weeks after discharge (Dr. Fabienne Alan). Patient did not follow up with cardiology. Please review and advise, Melly Colindres RN] Trinity Deluna RN 08/01/2024 11:28 AM Signed Patient calling back in for request for refill of Entresto. (See note below also). Reports it was last reordered by [place] Mireles CNP and asking if provider would reorder it again. Pt states she has been out of the medication and is starting to feel the effects from not taking it. Please call patient back with an update. BOYD Thomas, [place] Olson, ROSA.CAT CRACKER OPERATOR 08/01/2024 11:50 AM Signed I only refilled Entresto from hospital follow-up for enough to get her through to cardiology appointment. Needs to make cards appointment. Looks like from below notes that she never even picked up this medication from May when I set it in. If a provider told her to discontinue or hold the Entresto then she needs recommendation from that provider on whether to restart. Thank you, [place] Mireles, CAR WASH SUPERVISOR.Alexandria Pierce MA 08/01/2024 1:39 PM Signed Message left for return call. TAMIR Cool Stephanie, RN 08/07/2024 11:30 AM Signed Patient has appointment with PCP on 08/14/2024. Melly Colindres RN Allergies As of Date: 07/30/2024 Noted Allergy Reaction STEFFI INHIBITORS 01/29/2014 3 - Cough LATEX 09/21/2011 2 - Rash MORPHINE 05/02/2024 8 - GI Upset Comments: Terrible vomitting Date Reviewed: 05/24/2024 Reviewed by: Gi Mae LPN - Fully Assessed Prescriptions as of 08/07/2024 - carvedilol (COREG) 3.125 mg tablet Take 1 tablet by mouth t (more content not included)... Normal [facility] CBC W Auto Differential pane l (Bld)on 07-29-2024 Basophils (Bld) [#/Vol] 10*3/uL Normal <0.[address] [facility] Comment on above: Order Comment: Speci men Type: BLOOD SPECIMEN Ordering Facility: [facility] Address: [address] [place] [address] [place] [address] Performed By: #### 3 3762-6, 86395-6, 82019-6 #### [facility] CLIA [id number] [address] [place] [address] [place] Basophils/100 WBC (Bld) 0.7 % Normal [facility] Comment on above: Order Comment: Speci men Type: BLOOD SPECIMEN Ordering Facility: [facility] Address: [address] [place] [address] Performed By: #### 3 3762-6, 12045-6, 40943-1 #### [facility] CLIA [id number] [address] [place] [address] [place] Differential cell count method Nom (Bld) Auto Normal [facility] Comment on above: Order Comment: Speci men Type: BLOOD SPECIMEN Ordering Facility: [facility] Address: [address] [place] [address] Performed By: #### 3 3762-6, 43757-6, 01263-2 #### [facility] CLIA [id number] [address] [place] [address] [place] Eosinophils (Bld) [#/Vol] 0.04 10*3/uL Normal <0.[address] [facility] Comment on above: Order Comment: Speci men Type: BLOOD SPECIMEN Ordering Facility: [facility] Address: [address] [place] [address] Performed By: #### 3 3762-6, 16475-6, 21252-2 #### [facility] CLIA [id number] [address] [place] [address] [place] Eosinophils/100 WBC (Bld) 1.4 % Normal [facility] Comment on above: Order Comment: Speci men Type: BLOOD SPECIMEN Ordering Facility: [facility] Address: [address] [place] [address] Performed By: #### 3 3762-6, 57129-1, 76440-0 #### [facility] CLIA [id number] [address] [place] [address] [place] Erythrocyte distribution width (RBC) [Ratio] 17.8 % High 11.5-15.[address] [facility] Comment on above: Order Comment: Speci men Type: BLOOD SPECIMEN Ordering Facility: [facility] Address: [address] [place] [address] Performed By: #### 3 3762-6, 02587-3, 66169-0 #### [facility] CLIA [id number] [address] [place] [address] [place] Hematocrit (Bld) [Volume fraction] 37.8 % Normal 36.0-46.[address] [facility] Comment on above: Order Comment: Speci men Type: BLOOD SPECIMEN Ordering Facility: [facility] Address: [address] [place] [address] Performed By: #### 3 3762-6, 27426-0, 06312-6 #### [facility] CLIA [id number] [address] [place] [address] [place] Hemoglobin (Bld) [Mass/Vol] 12.7 g/dL Normal 11.5-15.[address] [facility] Comment on above: Order Comment: Speci men Type: BLOOD SPECIMEN Ordering Facility: [facility] Address: [address] [place] [address] Performed By: #### 3 3762-6, 72960-1, 08172-0 #### [facility] CLIA [id number] [address] [place] [address] [place] Immature granulocytes (Bld) [#/Vol] 10*3/uL Normal <0.[address] [facility] Comment on above: Order Comment: Speci men Type: BLOOD SPECIMEN Ordering Facility: [facility] Address: [address] [place] [address] Performed By: #### 3 3762-6, 07589-8, 97900-5 #### [facility] CLIA [id number] [address] [place] [address] [place] Immature granulocytes/100 WBC (Bld) 0.3 % Normal [facility] Comment on above: Order Comment: Speci men Type: BLOOD SPECIMEN Ordering Facility: [facility] Address: [address] [place] [address] Performed By: #### 3 3762-6, 86638-8, 19593-8 #### [facility] CLIA [id number] [address] [place] [address] [place] Lymphocytes (Bld) [#/Vol] 1.19 10*3/uL Normal 1.00-4.[address] [facility] Comment on above: Order Comment: Speci men Type: BLOOD SPECIMEN Ordering Facility: [facility] Address: [address] [place] [address] Performed By: #### 3 3762-6, 52531-4, 88793-4 #### [facility] CLIA [id number] [address] [place] [address] [place] Lymphocytes/100 WBC (Bld) 40.9 % Normal [facility] Comment on above: Order Comment: Speci men Type: BLOOD SPECIMEN Ordering Facility: [facility] Address: [address] [place] [address] Performed By: #### 3 3762-6, 79416-5, 03655-8 #### [facility] CLIA [id number] [address] [place] [address] [place] MCH (RBC) [Entitic mass] 27.0 pg Normal 26.0-34.[address] [facility] Comment on above: Order Comment: Speci men Type: BLOOD SPECIMEN Ordering Facility: [facility] Address: [address] [place] [address] Performed By: #### 3 3762-6, 36097-1, 19525-2 #### [facility] CLIA [id number] [address] [place] [address] [place] MCHC (RBC) [Mass/Vol] 33.6 g/dL Normal 30.5-36.[address] [facility] Comment on above: Order Comment: Speci men Type: BLOOD SPECIMEN Ordering Facility: [facility] Address: [address] [place] [address] Performed By: #### 3 3762-6, 12600-2, 40840-7 #### [facility] CLIA [id number] [address] [place] [address] [place] MCV (RBC) [Entitic vol] 80.3 fL Normal 80.0-100.[address] [facility] Comment on above: Order Comment: Speci men Type: BLOOD SPECIMEN Ordering Facility: [facility] Address: [address] [place] [address] Performed By: #### 3 3762-6, 38682-1, 24556-0 #### [facility] CLIA [id number] [address] [place] [address] [place] Monocytes (Bld) [#/Vol] 0.28 10*3/uL Normal <0.[address] [facility] Comment on above: Order Comment: Speci men Type: BLOOD SPECIMEN Ordering Facility: [facility] Address: [address] [place] [address] Performed By: #### 3 3762-6, 60647-1, 67195-4 #### [facility] CLIA [id number] [address] [place] [address] [place] Monocytes/100 WBC (Bld) 9.6 % Normal [facility] Comment on above: Order Comment: Speci men Type: BLOOD SPECIMEN Ordering Facility: [facility] Address: [address] [place] [address] Performed By: #### 3 3762-6, 62989-1, 68538-1 #### [facility] CLIA [id number] [address] [place] [address] [place] Neutrophils (Bld) [#/Vol] 1.37 10*3/uL Low 1.45-7.[address] [facility] Comment on above: Order Comment: Speci men Type: BLOOD SPECIMEN Ordering Facility: [facility] Address: [address] [place] [address] Performed By: #### 3 3762-6, 28614-6, 86047-6 #### [facility] CLIA [id number] [address] [place] [address] [place] Neutrophils/100 WBC (Bld) 47.1 % Normal [facility] Comment on above: Order Comment: Speci men Type: BLOOD SPECIMEN Ordering Facility: [facility] Address: [address] [place] [address] Performed By: #### 3 3762-6, 15424-9, 57149-9 #### [facility] CLIA [id number] [address] [place] [address] [place] Nucleated RBC (Bld) [#/Vol] 10*3/uL Normal <0.[address] [facility] Comment on above: Order Comment: Speci men Type: BLOOD SPECIMEN Ordering Facility: [facility] Address: [address] [place] [address] Performed By: #### 3 3762-6, 60083-0, 20210-6 #### [facility] CLIA [id number] [address] [place] [address] [place] Nucleated RBC/100 WBC (Bld) [Ratio] 0.0 /100 WBC Normal [facility] Comment on above: Order Comment: Speci men Type: BLOOD SPECIMEN Ordering Facility: [facility] Address: [address] [place] [address] Performed By: #### 3 3762-6, 35417-9, 25667-5 #### [facility] CLIA [id number] [address] [place] [address] [place] Platelet mean volume (Bld) [Entitic vol] Normal [facility] Comment on above: Order Comment: Speci men Type: BLOOD SPECIMEN Ordering Facility: [facility] Address: [address] [place] [address] Result Comment: Unab le to Report. Performed By: #### 3 3762-6, 57467-0, 79736-9 #### [facility] CLIA [id number] [address] [place] [address] [place] Platelets (Bld) [#/Vol] 254 10*3/uL Normal 150-[address] [facility] Comment on above: Order Comment: Speci men Type: BLOOD SPECIMEN Ordering Facility: [facility] Address: [address] [place] [address] Performed By: #### 3 3762-6, 16411-9, 49980-0 #### [facility] CLIA [id number] [address] [place] [address] [place] RBC (Bld) [#/Vol] 4.71 10*6/uL Normal 3.90-5.20 [facility] Comment on above: Order Comment: Speci men Type: BLOOD SPECIMEN Ordering Facility: [facility] Address: [address] [place] [address] Performed By: #### 3 3762-6, 89949-4, 30974-1 #### [facility] CLIA [id number] [address] [place] [address] [place] WBC (Bld) [#/Vol] 2.91 10*3/uL Low 3.70-11.00 [facility] Comment on above: Order Comment: Speci men Type: BLOOD SPECIMEN Ordering Facility: [facility] Address: [address] [place] [address] Performed By: #### 3 3762-6, 50386-2, 54993-8 #### [facility] CLIA [id number] [address] [place] [address] [place] Comprehensive metabolic 2000 panelon 07-29-2024 Albumin [Mass/Vol] 3.8 g/dL Low 3.9-4.9 [facility] Comment on above: Order Comment: Speci men Type: BLOOD SPECIMEN Ordering Facility: [facility] Address: [address] [place] [address] Performed By: #### 3 3762-6, 55109-1, 00970-3 #### [facility] CLIA [id number] [address] [place] [address] [place] ALP [Catalytic activity/Vol] 99 U/L Normal 34-[address] [facility] Comment on above: Order Comment: Speci men Type: BLOOD SPECIMEN Ordering Facility: [facility] Address: [address] [place] [address] Performed By: #### 3 3762-6, 83621-2, 86475-2 #### [facility] CLIA [id number] [address] [place] [address] [place] ALT [Catalytic activity/Vol] 37 U/L Normal 7-[address] [facility] Comment on above: Order Comment: Speci men Type: BLOOD SPECIMEN Ordering Facility: [facility] Address: [address] [place] [address] Performed By: #### 3 3762-6, 14325-2, 53022-8 #### [facility] CLIA [id number] [address] [place] [address] [place] Anion gap [Moles/Vol] 12 mmol/L Normal 8-[address] [facility] Comment on above: Order Comment: Speci men Type: BLOOD SPECIMEN Ordering Facility: [facility] Address: [address] [place] [address] Performed By: #### 3 3762-6, 01820-9, 72245-4 #### [facility] CLIA [id number] [address] [place] [address] [place] AST [Catalytic activity/Vol] 31 U/L Normal 13-[address] [facility] Comment on above: Order Comment: Speci men Type: BLOOD SPECIMEN Ordering Facility: [facility] Address: [address] [place], [place] [address] Performed By: #### 3 3762-6, 38864-8, 93230-3 #### [facility] CLIA [id number] [address] [place], [place] [address] [place] Bilirubin [Mass/Vol] 0.2 mg/dL Normal 0.2-1.[address] [facility] Comment on above: Order Comment: Speci men Type: BLOOD SPECIMEN Ordering Facility: [facility] Address: [address] [place] [address] Performed By: #### 3 3762-6, 95398-7, 60049-5 #### [facility] CLIA [id number] [address] [place] [address] [place] Calcium [Mass/Vol] 9.6 mg/dL Normal 8.5-10.2 [facility] Comment on above: Order Comment: Speci men Type: BLOOD SPECIMEN Ordering Facility: [facility] Address: [address] [place] [address] Performed By: #### 3 3762-6, 95232-9, 83922-1 #### [facility] CLIA [id number] [address] [place] [address] [place] Chloride [Moles/Vol] 91 mmol/L Low 98-[address] [facility] Comment on above: Order Comment: Speci men Type: BLOOD SPECIMEN Ordering Facility: [facility] Address: [address] [place], [place] [address] Performed By: #### 3 3762-6, 12121-4, 38715-9 #### [facility] CLIA [id number] [address] [place] [address] [place] CO2 [Moles/Vol] 26 mmol/L Normal 22-[address] [facility] Comment on above: Order Comment: Speci men Type: BLOOD SPECIMEN Ordering Facility: [facility] Address: [address] [place], [place] [address] Performed By: #### 3 3762-6, 55225-0, 33984-5 #### [facility] CLIA [id number] [address] [place] [address] [place] Creatinine [Mass/Vol] 0.99 mg/dL High 0.58-0.[address] [facility] Comment on above: Order Comment: Iqra pool Type: BLOOD SPECIMEN Ordering Facility: [facility] Address: [address] [place] [address] Performed By: #### 3 3762-6, 00241-3, 97289-4 #### [facility] CLIA [id number] [address] [place] [address] [place] Creatinine and Glomerular filtration rate.predicted panel (S/P/Bld) 69 mL/min/1.73m??? Normal >=[address] [facility] Comment on above: Order Comment: Iqra pool Type: BLOOD SPECIMEN Ordering Facility: [facility] Address: [address] [place] [address] Result Comment: Ct mated Glomerular Filtration Rate (eGFR) is calculated using the 2020 CKD-EPI creatinine equation. This equation utilizes serum creatinine, sex, and age as parameters. The creatinine assay has traceable calibration to isotope dilution-mass spectrometry. Refer to KDIGO guidelines for clinical interpretation. In patients with unstable renal function, e.g. those with acute kidney injury, the eGFR may not accurately reflect actual GFR. Performed By: #### 3 3762-6, 49351-5, 47824-0 #### [facility] CLIA [id number] [address] [place] [address] [place] Glucose [Mass/Vol] 515 mg/dL High 74-99 [facility] Comment on above: Order Comment: Iqra pool Type: BLOOD SPECIMEN Ordering Facility: [facility] Address: [address] [place] [address] Result Comment: The [place] Diabetes Association (ADA) provides guidance for cutoff values for fasting glucose and random glucose. The ADA defines fasting as no caloric intake for at least 8 hours. Fasting plasma glucose results between 100 to 125 mg/dL indicate increased risk for diabetes (prediabetes). Fasting plasma glucose results greater than or equal to 126 mg/dL meet the criteria for diagnosis of diabetes. In the absence of unequivocal hyperglycemia, results should be confirmed by repeat testing. In a patient with classic symptoms of hyperglycemia or hyperglycemic crisis, random plasma glucose results greater than or equal to 200 mg/dL meet the criteria for diagnosis of diabetes. Reference: Standards of Medical Care in Diabetes 2016, [place] [employer] Association. Diabetes Care. 2016.39(Suppl 1). Performed By: #### 3 3762-6, 82222-5, 15196-5 #### [facility] CLIA [id number] [address] [place] [address] [place] Potassium [Moles/Vol] 4.8 mmol/L Normal 3.7-5.[address] [facility] Comment on above: Order Comment: Speci men Type: BLOOD SPECIMEN Ordering Facility: [facility] Address: [address] [place] [address] Performed By: #### 3 3762-6, , 80221-5 #### [facility] CLIA [id number] [address] [place] [address] [place] Protein [Mass/Vol] 7.3 g/dL Normal 6.3-8.0 [facility] Comment on above: Order Comment: Speci men Type: BLOOD SPECIMEN Ordering Facility: [facility] Address: [address] [place] [address] Performed By: #### 3 3762-6, , 66979-0 #### [facility] CLIA [id number] [address] [place] [address] [place] Sodium [Moles/Vol] 129 mmol/L Low 136-144 [facility] Comment on above: Order Comment: Speci men Type: BLOOD SPECIMEN Ordering Facility: [facility] Address: [address] [place] [address] Performed By: #### 3 3762-6, 61899-6, 27390-9 #### [facility] CLIA [id number] [address] [place] [address] [place] Urea nitrogen [Mass/Vol] 19 mg/dL Normal 7-[address] [facility] Comment on above: Order Comment: Speci men Type: BLOOD SPECIMEN Ordering Facility: [facility] Address: [address] [place] [address] Performed By: #### 3 3762-6, 36444-0, 68257-5 #### [facility] CLIA [id number] [address] [place] [address] [place] Ferritin SerPl-mCncon 2024 Ferritin [Mass/Vol] 228.0 ng/mL High 14.7-205.1 [facility] Comment on above: Order Comment: Speci men Type: BLOOD SPECIMEN Ordering Facility: [facility] Address: [address] [place] [address] Performed By: #### 3 3762-6, 85402-3, 55231-6 #### [facility] CLIA [id number] [address] [place] [address] [place] Iron and Iron binding capaci ty panelon 07-29-2024 Iron [Mass/Vol] 62 ug/dL Normal 41-[address] [facility] Comment on above: Order Comment: Speci men Type: BLOOD SPECIMEN Ordering Facility: [facility] Address: [address] [place] [address] Performed By: #### 3 3762-6, 71172-9, 08685-1 #### [facility] CLIA [id number] [address] [place] [address] [place] Iron binding capacity [Mass/Vol] 323 ug/dL Normal 232-[address] [facility] Comment on above: Order Comment: Speci men Type: BLOOD SPECIMEN Ordering Facility: [facility] Address: [address] [place] [address] Performed By: #### 3 3762-6, 97028-2, 53146-8 #### [facility] CLIA [id number] [address] [place] [address] [place] Iron/TIBC [Molar ratio] 19.2 % Normal 15.0-57.[address] [facility] Comment on above: Order Comment: Speci men Type: BLOOD SPECIMEN Ordering Facility: [facility] Address: [address] [place] [address] Performed By: #### 3 3762-6, 50447-2, 15309-1 #### [facility] CLIA [id number] [address] [place] [address] [place] Magnesium [facility] 07-29 Magnesium [Mass/Vol] 2.0 mg/dL Normal 1.7-2.[address] [facility] Comment on above: Order Comment: Speci men Type: BLOOD SPECIMEN Ordering Facility: [facility] Address: [address] [place] [address] Performed By: #### 3 3762-6, 47481-5, 32056-1 #### [facility] IA [id number] [address] [place] [address] OF [place] NT-proBNP [facility]on 07-29 Natriuretic peptide.B prohormone N-Terminal [Mass/Vol] 1043 pg/mL High <[address] [facility] Comment on above: Order Comment: Speci men Type: BLOOD SPECIMEN Ordering Facility: [facility] Address: [address] [place] [address] Performed By: #### 3 3762-6, 78548-1, 69594-6 #### [facility] [place] [id number] [address] [place] [address] [place] Jarett 07-25-2024 CNPN Telephone (FAMPWS) MARIELLA RAMIREZ ([id number]) 1970 F [facility] Date Time Provider Department 07/25/24 GERBER PINA During your visit today, we recorded the following information about you: Luma Valdez LPN 07/25/2024 10:25 AM Signed Patient calling asking about iron infusion? She said when she was in [facility] ion May, she was supposed to have iron infusions and never did do that her insurance did not cover it. Patient said she has another insurance now and is asking to have the infusions set up. Computer shows patient did not do the labs that [facility] had put in for her to complete. Please advise Melly Colindres, RN 07/26/2024 3:55 PM Signed Patient calls to see the status of this request. Patient states that she now has financial assistance/insurance. Advised patient that she needs to come into lab and get labs done so we can see where her iron levels are done since [place] had these ordered in May. Patient voiced understanding. Allergies As of Date: 07/25/2024 Noted Allergy Reaction STEFFI INHIBITORS 01/29/2014 3 - Cough LATEX 09/21/2011 2 - Rash MORPHINE 05/02/2024 8 - GI Upset Comments: Terrible vomitting Date Reviewed: 05/24/2024 Reviewed by: Gi Mae LPN - Fully Assessed Reason for Visit: Patient Question [3667] Prescriptions as of 08/26/2024 - carvedilol (COREG) 3.125 mg tablet Take 1 tablet by mouth two times a day with meals. - atorvastatin (LIPITOR) 40 mg tablet TAKE 1 TABLET BY MOUTH ONCE DAILY AT BEDTIME FOR CHOLESTEROL - pantoprazole DR (PROTONIX) 40 mg tablet Take 1 tablet by mouth once daily. 30 minutes before eating. - furosemide (LASIX) 40 mg tablet Take 1 tablet by mouth once daily. - clopidogrel (PLAVIX) 75 mg tablet Take 1 tablet by mouth once daily. - dapagliflozin propanediol (FARXIGA) 5 mg tablet Take 1 tablet by mouth daily with breakfast. - spironolactone (ALDACTONE) 25 mg tablet Take 1 tablet by mouth once daily. - sacubitril-valsartan (ENTRESTO) 24-26 mg tablet Take 1 tablet by mouth two times a day. - insulin glargine (LANTUS SOLOSTAR U-100 INSULIN) 100 unit/mL (3 mL) Inject 30 Units subcutaneously daily at bedtime. - Blood-Glucose Meter,Continuous (FREESTYLE JACQUE 3 READER) [facility] Use to check blood sugar at least four (4) times daily. - Blood-Glucose Sensor (FREESTYLE JACQUE 3 PLUS SENSOR) marbella Apply new sensor every fifteen (15) days to upper arm. - Lancets Test blood sugar(s) 1 times daily. Dx: DM2. Insulin: No - Blood-Glucose Meter (GANTECTOUCH ULTRA2 METER) monitoring kit 1 Each as needed. One Touch Meter Kit Diagnosis: Diabetes Mellitus - Lancets Test Three times a week. Insulin Dep? Yes E11.9 DM 2 - alcohol swabs (ALCOHOL PADS) Test Three times a week. Insulin Dep? Yes E11.9 DM 2 - blood sugar diagnostic (BLOOD GLUCOSE TEST) test strip Test blood sugar(s) 3 times daily. Dx: Type 2 DM - Controlled E11.9 Insulin: Yes - lisinopril (ZESTRIL) 10 mg tablet Take 1 tablet by mouth once daily. - metoprolol succinate ER (TOPROL XL) 100 mg Take 1 tablet by mouth two times a day. - ticagrelor (BRILINTA) 90 mg tablet Take by mouth. [facility] - insulin lispro (HUMALOG KWIKPEN INSULIN) 100 unit/mL 12 units 3 times daily - blood sugar diagnostic (BLOOD GLUCOSE TEST) test strip Test blood sugar(s) one times daily. Dx: 250.00. Insulin: No - BABY ASPIRIN ORAL Take by mouth. - Cholecalciferol, Vitamin D3, (DIALYVITE VITAMIN D) 125 mcg (5,000 unit) cap Take 1 capsule by mouth once daily. - Insulin Hume, Disposable, (BD ULTRA-FINE SONU PEN NEEDLE) 32 gauge x ndle 2Use one needle for each dose. 1/day. - blood sugar diagnostic (RELION PRIME TEST STRIPS) test strip Diabetes mellitus type 2, non insulin dependent, testing 1x/day, Use as instructed - ONETOUCH ULTRA TEST test strip USE TO CHECK GLUCOSE ONCE DAILY - ibuprofen 800 mg tablet Take 1 tablet by mouth every 8 hours as needed (FOR PAIN. TAKE WITH FOOD). - MULTI-VITAMIN ORAL Take by mouth. Meds Comments as of 05/02/2024: Not taking any of her medications as of appointment on 05/02/24. Wants to use natural remedies instead. 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*03/29/2018 Encounter Status:Closed by LUMA VALDEZ on 08/26/24 Normal [facility] MARIELL[facility] RAMIREZ ([id number]) 1970 F T Date Time Provider Department 07/01/24 [facility] During your visit today, we recorded the following information about you: Sherlyn Flores LPN 07/01/2024 1:21 PM Signed Type of form: Health Insurance [employer] Form received via walk in When form is completed, Fax form Form has been forwarded to [place] Mccarty LPN, APRN.CAT CRACKER OPERATOR 07/01/2024 2:21 PM Signed Please get more information. I started filling this out but what is she needing? Does she just need the time off work that she was hospitalized/admitted? [place] Mireles APRN.Gi Cazares LPN 07/01/2024 4:18 PM Signed Left message to return call. [place] Mireles APRN.CNP 07/03/2024 5:38 PM Signed Can we try to reach out to her again? [place] Mireles APRN.Gi Cazares LPN 07/03/2024 6:52 PM Signed Left message to call back and let us know what she needs. 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 Patient was admitted twice - once to [facility] and the other at [facility]. She is needing follow up prior to returning to work. The forms is to attest that she had a return to work follow up post hospital admittance. If possible, please fax to the number listed on the form and notify patient once faxed. 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 [place] Hernández APRN.CNP 07/04/2024 12:01 PM Signed Filled this out to the best of my ability. Paperwork in outbox. Please fax. Thank you, [place] Mireles APRN.Gi Cazares LPN 07/04/2024 12:21 PM Signed Faxed form to number provided on form. Notified pt of such. Allergies As of Date: 07/01/2024 Noted Allergy Reaction STEFFI INHIBITORS 01/29/2014 3 - Cough LATEX 09/21/2011 2 - Rash MORPHINE 05/02/2024 8 - GI Upset Comments: Terrible vomitting Date Reviewed: 05/24/2024 Reviewed by: Gi Mae LPN - Fully Assessed Prescriptions as of 07/23/2024 - carvedilol (COREG) 3.125 mg tablet Take 1 tablet by mouth two times a day with meals. - atorvastatin (LIPITOR) 40 mg tablet TAKE 1 TABLET BY MOUTH ONCE DAILY AT BEDTIME FOR CHOLESTEROL - pantoprazole DR (PROTONIX) 40 mg tablet Take 1 tablet by mouth once daily. 30 minutes before eating. - furosemide (LASIX) 40 mg tablet Take 1 tablet by mouth once daily. - clopidogrel (PLAVIX) 75 mg tablet Take 1 tablet by mouth once daily. - dapagliflozin propanediol (FARXIGA) 5 mg tablet Take 1 tablet by mouth daily with breakfast. - spironolactone (ALDACTONE) 25 mg tablet Take 1 tablet by mouth once daily. - sacubitril-valsartan (ENTRESTO) 24-26 mg tablet Take 1 tablet by mouth two times a day. - insulin glargine (LANTUS SOLOSTAR U-100 INSULIN) 100 unit/mL (3 mL) Inject 30 Units subcutaneously daily at bedtime. - Blood-Glucose Meter,Continuous (FREESTYLE JACQUE 3 READER) misc Use to check blood sugar at least four (4) times daily. - Blood-Glucose Sensor (FREESTYLE JACQUE 3 PLUS SENSOR) marbella Apply new sensor every fifteen (15) days to upper arm. - Lancets Test blood sugar(s) 1 times daily. Dx: DM2. Insulin: No - Blood-Glucose Meter (ONETOUCH ULTRA2 METER) monitoring kit 1 Each as needed. One Touch Meter Kit Diagnosis: Diabetes Mellitus - Lancets Test Three times a week. Insulin Dep? Yes E11.9 DM 2 - alcohol swabs (ALCOHOL PADS) Test Three times a week. Insulin Dep? Yes E11.9 DM 2 - blood sugar diagnostic (BLOOD GLUCOSE TEST) test strip Test blood sugar(s) 3 times daily. Dx: Type 2 DM - Controlled E11.9 Insulin: Yes - lisinopril (ZESTRIL) 10 mg tablet Take 1 tablet by mouth once daily. - Comp Stocking,Knee,Regular,Med misc 2 Each once daily. - metoprolol succinate ER (TOPROL XL) 100 mg Take 1 tablet by mouth two times a day. - ticagrelor (BRILINTA) 90 mg tablet Take by mouth. [facility] - insulin lispro (HUMALOG KWIKPEN INSULIN) 100 unit/mL 12 units 3 times daily - blood sugar diagnostic (BLOOD GLUCOSE TEST) test strip Test blood sugar(s) one times daily. Dx: 250.00. Insulin: No - BABY ASPIRIN ORAL Take by mouth. - Cholecalciferol, Vitamin D3, (DIALYVITE VITAMIN D) 125 mcg (5,000 unit) cap Take 1 capsule by mouth once daily. - Insulin Hume, Disposable, (BD ULTRA-FINE SONU PEN NEEDLE) 32 gauge x 5/32 ndle 2Use one needle for each dose. 1/day. - blood sugar diagnostic (RELION PRIME TEST STRIPS) test strip Diabetes mellitus type 2, non insulin dependent, testing 1x/day, Use as instructed - ONETOUCH ULTRA TEST test strip USE TO CHECK GLUCOSE ONCE DAILY - ibuprofen 800 mg tablet Take 1 tablet by mouth every 8 hours as needed (FOR PAIN. TAKE WITH FOOD). - MULTI-VITAMIN ORAL Take by mouth. Meds Comments as of 05/02/2024: Not taking any of her medications as of appointment (more content not included)... [facility] MARIELLA RAMIREZ ([id number]) 1970 F [facility] Date Time Provider Department 06/13/24 [facility] PINA [facility] During your visit today, we recorded the following information about you: Melly Colindres RN 06/13/2024 10:18 AM Signed Pharmacist calls and states that he received orders for spironolactone and entresto. Entresto contains an steffi inhibitor which can cause adverse reaction of severe hyperkalemia. Pharmacist wanted provider to be aware of this and wanted provider to ok filling both medications. Please review and advise, BOYD Canchola Alyson Taylor, APRN.CAT CRACKER OPERATOR 06/13/2024 10:43 AM Signed OK to refill at this time. Please make patient aware of this and have her come in to get lab work done as ordered to monitor potassium level. Also, make sure she makes pharmacy appointment to review medication list and clarify what medications she is taking as she was very unsure at recent office visit. Thank you, [place] Mireles APRN.Luma Roca LPN 06/13/2024 1:32 PM Signed Patient calling to question about medication refills. Went over notes below from [place] Mireles ACID MAKER. Patient said she did not need pharmacist appt had gone over all of her medications yesterday with a nurse. Now patient was calling for a refill on aone medication she did not have yesterday and is needing it refilled. She takes Carvedilol 3.125 mg one tablet twice daily had gotten from hospital stay at [facility] from [facility]. Pending rx. Please advise The patient has been identified by name and date of : Yes Caregiver verified no other encounters exist for this prescription request: Yes Caregiver confirmed with patient/requestor that no other refills are due, in the near future, with this provider at this time: Yes The last office visit in the department: 05/24/2024 Does the patient have a future office visit with this provider/department: Yes 08/14/2024 Requested Prescriptions Pending Prescriptions Disp Refills carvedilol (COREG) 3.125 mg tablet 180 tablet Sig: Take 1 tablet by mouth two times a day with meals. Luma Valdez LPN June 13, 2024 1:31 PM [place] Mireles APRN.CAT CRACKER OPERATOR 06/13/2024 2:32 PM Signed The following approved medication requests have been transmitted electronically. Requested Prescriptions Signed Prescriptions Disp Refills carvedilol (COREG) 3.125 mg tablet 180 tablet 2 Sig: Take 1 tablet by mouth two times a day with meals. Authorizing Provider: [place] MIRELES APRN.CAT CRACKER OPERATOR Allergies As of Date: 06/13/2024 Noted Allergy Reaction STEFFI INHIBITORS 01/29/2014 3 - Cough LATEX 09/21/2011 2 - Rash MORPHINE 05/02/2024 8 - GI Upset Comments: Terrible vomitting Date Reviewed: 05/24/2024 Reviewed by: Gi Mae LPN - Fully Assessed Reason for Visit: Medication Problem [65] Primary Visit Diagnosis:Essential hypertension [I10] Order(s):carvedilol (COREG) 3.125 mg tabletTake 1 tablet by mouth two times a day with meals.Disp: 180 tabletRfl: 2 Prescriptions as of 06/13/2024 - carvedilol (COREG) 3.125 mg tablet Take 1 tablet by mouth two times a day with meals. - atorvastatin (LIPITOR) 40 mg tablet TAKE 1 TABLET BY MOUTH ONCE DAILY AT BEDTIME FOR CHOLESTEROL - pantoprazole DR (PROTONIX) 40 mg tablet Take 1 tablet by mouth once daily. 30 minutes before eating. - furosemide (LASIX) 40 mg tablet Take 1 tablet by mouth once daily. - clopidogrel (PLAVIX) 75 mg tablet Take 1 tablet by mouth once daily. - dapagliflozin propanediol (FARXIGA) 5 mg tablet Take 1 tablet by mouth daily with breakfast. - spironolactone (ALDACTONE) 25 mg tablet Take 1 tablet by mouth once daily. - sacubitril-valsartan (ENTRESTO) 24-26 mg tablet Take 1 tablet by mouth two times a day. - insulin glargine (LANTUS SOLOSTAR U-100 INSULIN) 100 unit/mL (3 mL) Inject 30 Units subcutaneously daily at bedtime. - Blood-Glucose Meter,Continuous (FREESTYLE JACQUE 3 READER) misc Use to check blood sugar at least four (4) times daily. - Blood-Glucose Sensor (FREESTYLE JACQUE 3 PLUS SENSOR) marbella Apply new sensor every fifteen (15) days to upper arm. - Lancets Test blood sugar(s) 1 times daily. Dx: DM2. Insulin: No - Blood-Glucose Meter (ONETOUCH ULTRA2 METER) monitoring kit 1 Each as needed. One Touch Meter Kit Diagnosis: Diabetes Mellitus - Lancets Test Three times a week. Insulin Dep? Yes E11.9 DM 2 - alcohol swabs (ALCOHOL PADS) Test Three times a week. Insulin Dep? Yes E11.9 DM 2 - blood sugar diagnostic (BLOOD GLUCOSE TEST) test strip Test blood sugar(s) 3 times daily. Dx: Type 2 DM - Controlled E11.9 Insulin: Yes - lisinopril (ZESTRIL) 10 mg tablet Take 1 tablet by mouth once daily. - Comp Stocking,Knee,Regular,Med misc 2 Each once daily. - metoprolol succinate ER (TOPROL XL) 100 mg Take 1 tablet by mouth two times a day. - ticagrel (more content not included)... [facility] Telephone (INT[facility]) MARIELLA RAMIREZ ([id number]) 1970 F C[facility] Date Time Provider Department 05/28/24 GERBER PINA [facility] During your visit today, we recorded the following information about you: Suzi Gloria LPN 05/28/2024 9:43 AM Signed Note from payer: Your PA request has been denied. Additional information will be provided in the denial communication. (Message 1140) Payer: JENARO Severino [phone] Electronic appeal: Not supported Appeal instructions: Your PA request has been denied. Additional information will be provided in the denial communication. (Message 1140) View History Notes Time User Attachment Attachment received from payer. 05/27/2024 10:18 AM [facility], Rx Priorauth In Document Medication Being Authorized Blood-Glucose Meter,Continuous (FREESTYLE JACQUE 3 READER) misc Use to check blood sugar at least four (4) times daily. Dispense: 1 Each Refills: 0 Start: 05/24/2024 Class: Normal Diagnoses: Type 2 diabetes mellitus without complication, with long-term current use of insulin (HCC) This order has been released to its destination. To be filled at: [facility] [address] [place] [address] [phone] [facility] [phone] [facility] Suzi Gloria LPN 05/28/2024 10:12 AM Signed Called the pharmacy and they read is covered but it is 64.99 The sensors are also covered. This cost is 224.99. Pharmacy isn't sure if there is a deductible that needs met first. Brittaney Berkowitz APRN.CAT CRACKER OPERATOR 05/29/2024 7:23 AM Signed Can you please call the patient and let her know that the prior Auth for her sensors was approved but were over $200. The pharmacy mentioned something about a possible deductible. I would recommend that she call her insurance to verify. Brittaney Berkowitz APRN.Wendy Brooks LPN 05/29/2024 12:46 PM Signed TC to pt. LM to call office, ask for triage nurse to get results. RONALD WangSuziRONALD 06/03/2024 3:17 PM Signed Message left again for return call to a nurse to review. CristianSuzi gilRONALD 06/14/2024 11:01 AM Signed Called pt again with no answer and unable to leave a message. The mail box is full. Allergies As of Date: 05/28/2024 Noted Allergy Reaction STEFFI INHIBITORS 01/29/2014 3 - Cough LATEX 09/21/2011 2 - Rash MORPHINE 05/02/2024 8 - GI Upset Comments: Terrible vomitting Date Reviewed: 05/24/2024 Reviewed by: Gi Mae LPN - Fully Assessed Reason for Visit: Insurance Authorization [[id number]] Prescriptions as of 06/14/2024 - carvedilol (COREG) 3.125 mg tablet Take 1 tablet by mouth two times a day with meals. - atorvastatin (LIPITOR) 40 mg tablet TAKE 1 TABLET BY MOUTH ONCE DAILY AT BEDTIME FOR CHOLESTEROL - pantoprazole DR (PROTONIX) 40 mg tablet Take 1 tablet by mouth once daily. 30 minutes before eating. - furosemide (LASIX) 40 mg tablet Take 1 tablet by mouth once daily. - clopidogrel (PLAVIX) 75 mg tablet Take 1 tablet by mouth once daily. - dapagliflozin propanediol (FARXIGA) 5 mg tablet Take 1 tablet by mouth daily with breakfast. - spironolactone (ALDACTONE) 25 mg tablet Take 1 tablet by mouth once daily. - sacubitril-valsartan (ENTRESTO) 24-26 mg tablet Take 1 tablet by mouth two times a day. - insulin glargine (LANTUS SOLOSTAR U-100 INSULIN) 100 unit/mL (3 mL) Inject 30 Units subcutaneously daily at bedtime. - Blood-Glucose Meter,Continuous (FREESTYLE JACQUE 3 READER) [facility] Use to check blood sugar at least four (4) times daily. - Blood-Glucose Sensor (FREESTYLE JACQUE 3 PLUS SENSOR) marbella Apply new sensor every fifteen (15) days to upper arm. - Lancets Test blood sugar(s) 1 times daily. Dx: DM2. Insulin: No - Blood-Glucose Meter (ONETOUCH ULTRA2 METER) monitoring kit 1 Each as needed. One Touch Meter Kit Diagnosis: Diabetes Mellitus - Lancets Test Three times a week. Insulin Dep? Yes E11.9 DM 2 - alcohol swabs (ALCOHOL PADS) Test Three times a week. Insulin Dep? Yes E11.9 DM 2 - blood sugar diagnostic (BLOOD GLUCOSE TEST) test strip Test blood sugar(s) 3 times daily. Dx: Type 2 DM - Controlled E11.9 Insulin: Yes - lisinopril (ZESTRIL) 10 mg tablet Take 1 tablet by mouth once daily. - Comp Stocking,Knee,Regular,Med misc 2 Each once daily. - metoprolol succinate ER (TOPROL XL) 100 mg Take 1 tablet by mouth two times a day. - ticagrelor (BRILINTA) 90 mg tablet Take by mouth. [facility] - insulin lispro (HUMALOG KWIKPEN INSULIN) 100 unit/mL 12 units 3 times daily - blood sugar diagnostic (BLOOD GLUCOSE TEST) test strip Test blood sugar(s) one times daily. Dx: 250.00. Insulin: No - BABY ASPIRIN ORAL Take by mouth. - Cholecalciferol, Vitamin D3, (DIALYVITE VITAMIN D) 125 mcg (5,000 unit) cap Take 1 capsule by mouth once daily. - Insulin Hume, Disposable, (BD ULTRA-FINE SONU PEN NEEDLE) 32 gauge x 5/32 ndle 2Use one needle for each (more content not included)... [facility] Tele[facility] (PHARMN) MARIELLA RAMIREZ ([id number]) 1970 F T Date Time Provider Department 05/27/24 PHARMACIST PHARMN During your visit today, we recorded the following information about you: Joni Rodriguez 05/27/2024 10:53 AM Signed Telephoned the patient to schedule a new Primary Care pharmacy appt. Unable to leave a message. Automated response: The number you have dialed has calling restrictions. Joni Rodriguez 05/28/2024 9:11 AM Signed Telephoned the patient to schedule a new Primary Care pharmacy appt. Left a message. Made two attempts to contact the patient. Patient has not returned the call. If the patient returns a call, an appt will be scheduled. Encounter routed to the clinical pharmacist. Cecy Barboza APRN.CNP 06/04/2024 11:39 AM Signed Noted, thank you. Cecy Barboza APRN.CNP Allergies As of Date: 05/27/2024 Noted Allergy Reaction STEFFI INHIBITORS 01/29/2014 3 - Cough LATEX 09/21/2011 2 - Rash MORPHINE 05/02/2024 8 - GI Upset Comments: Terrible vomitting Date Reviewed: 05/24/2024 Reviewed by: Gi Mae LPN - Fully Assessed Reason for Visit: New Primary Care Pharmacy [Other] Prescriptions as of 06/04/2024 - insulin glargine (LANTUS SOLOSTAR U-100 INSULIN) 100 unit/mL (3 mL) Inject 30 Units subcutaneously daily at bedtime. - Blood-Glucose Meter,Continuous (FREESTYLE JACQUE 3 READER) misc Use to check blood sugar at least four (4) times daily. - Blood-Glucose Sensor (FREESTYLE JACQUE 3 PLUS SENSOR) marbella Apply new sensor every fifteen (15) days to upper arm. - Lancets Test blood sugar(s) 1 times daily. Dx: DM2. Insulin: No - Blood-Glucose Meter (ONETOUCH ULTRA2 METER) monitoring kit 1 Each as needed. One Touch Meter Kit Diagnosis: Diabetes Mellitus - Lancets Test Three times a week. Insulin Dep? Yes E11.9 DM 2 - alcohol swabs (ALCOHOL PADS) Test Three times a week. Insulin Dep? Yes E11.9 DM 2 - blood sugar diagnostic (BLOOD GLUCOSE TEST) test strip Test blood sugar(s) 3 times daily. Dx: Type 2 DM - Controlled E11.9 Insulin: Yes - lisinopril (ZESTRIL) 10 mg tablet Take 1 tablet by mouth once daily. - Comp Stocking,Knee,Regular,Med misc 2 Each once daily. - metoprolol succinate ER (TOPROL XL) 100 mg Take 1 tablet by mouth two times a day. - ticagrelor (BRILINTA) 90 mg tablet Take by mouth. [facility] - atorvastatin (LIPITOR) 40 mg tablet TAKE 1 TABLET BY MOUTH ONCE DAILY AT BEDTIME FOR CHOLESTEROL - insulin lispro (HUMALOG KWIKPEN INSULIN) 100 unit/mL 12 units 3 times daily - blood sugar diagnostic (BLOOD GLUCOSE TEST) test strip Test blood sugar(s) one times daily. Dx: 250.00. Insulin: No - BABY ASPIRIN ORAL Take by mouth. - Cholecalciferol, Vitamin D3, (DIALYVITE VITAMIN D) 125 mcg (5,000 unit) cap Take 1 capsule by mouth once daily. - Insulin Hume, Disposable, (BD ULTRA-FINE SONU PEN NEEDLE) 32 gauge x 32 ndle 2Use one needle for each dose. 1/day. - blood sugar diagnostic (RELION PRIME TEST STRIPS) test strip Diabetes mellitus type 2, non insulin dependent, testing 1x/day, Use as instructed - ONETOUCH ULTRA TEST test strip USE TO CHECK GLUCOSE ONCE DAILY - ibuprofen 800 mg tablet Take 1 tablet by mouth every 8 hours as needed (FOR PAIN. TAKE WITH FOOD). - MULTI-VITAMIN ORAL Take by mouth. Meds Comments as of 05/02/2024: Not taking any of her medications as of appointment on 05/02/24. Wants to use natural remedies instead. 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 Jarett 05-25-2024 CNPN Telephone (HEMAWS) MARIELLA RAMIREZ ([id number]) 1970 F CHT Date Time Provider Department 05/25/24 STEVEN DOS SANTOS During your visit today, we recorded the following information about you: Sury Grant 05/25/2024 8:39 AM Signed Please review and advise Procedure: CONSULT TO HEMATOLOGY Status: Needs Scheduling Requested appt date: Authorizing: [place] Mireles APRN.CNP in [facility] Referral: [id number] (Pending Review) Expires: 05/24/2025 Priority: Routine Diagnosis: Anemia, unspecified type [D64.9] Sherly Atkins 05/27/2024 9:25 AM Signed Please schedule with Dr. Saleh or Dr. Dos Santos as new consult. Pt with new acute anemia, scopes negative. She is a [employer]ab[employer]ism. Sammi Nance 05/27/2024 11:04 AM Signed LVM w pt mother on contact list to call back and schedule new appt w Delfino or Jun, home and work phone not working. Put in [phone] referral for insurance. Sury Rod 06/03/2024 10:34 AM Signed Referral came back Do Not Schedule.Deny. DENIALS/OUT OF NETWORK May 31, 2024 11:33 AM FA case # [id number] Has Vendor worked case? Yes Please see communications in referral for more information. [place] Mireles APRN.CNP 06/03/2024 10:51 AM Signed Please call patient and see if she called the number given to her after our appointment from billing department. Thank you, [place] Mireles APRN.Gi Cazares LPN 06/03/2024 2:03 PM Signed Spoke with pt she states yes she was denied also because makes to much money. Asking if could get a refill of her long lasting insulin until can get another doctor so does not run out. Would like it to go [place] [facility]. [place] Mireles APRN.CAT CRACKER OPERATOR 06/03/2024 2:15 PM Signed Rx sent. The following approved medication requests have been transmitted electronically. Requested Prescriptions Signed Prescriptions Disp Refills insulin glargine (LANTUS SOLOSTAR U-100 INSULIN) 100 unit/mL (3 mL) 10 Each 3 Sig: Inject 30 Units subcutaneously daily at bedtime. Authorizing Provider: JAMAICA MIRELES APRN.CAT CRACKER OPERATOR Allergies As of Date: 05/25/2024 Noted Allergy Reaction STEFFI INHIBITORS 01/29/2014 3 - Cough LATEX 09/21/2011 2 - Rash MORPHINE 05/02/2024 8 - GI Upset Comments: Terrible vomitting Date Reviewed: 05/24/2024 Reviewed by: Gi Mae LPN - Fully Assessed Reason for Visit: New Patient [172] Visit Diagnosis:Type 2 diabetes mellitus without complication, with long-term current use of insulin ([facility]) [E11.9, Z79.4] Order(s):insulin glargine (LANTUS SOLOSTAR U-100 INSULIN) 100 unit/mL (3 mL)Inject 30 Units subcutaneously daily at bedtime.Disp: 10 EachRfl: 3 Prescriptions as of 06/03/2024 - insulin glargine (LANTUS SOLOSTAR U-100 INSULIN) 100 unit/mL (3 mL) Inject 30 Units subcutaneously daily at bedtime. - Blood-Glucose Meter,Continuous (FREESTYLE JACQUE 3 READER) [facility] Use to check blood sugar at least four (4) times daily. - Blood-Glucose Sensor (FREESTYLE JACQUE 3 PLUS SENSOR) marbella Apply new sensor every fifteen (15) days to upper arm. - Lancets Test blood sugar(s) 1 times daily. Dx: DM2. Insulin: No - Blood-Glucose Meter (ONETOUCH ULTRA2 METER) monitoring kit 1 Each as needed. One Touch Meter Kit Diagnosis: Diabetes Mellitus - Lancets Test Three times a week. Insulin Dep? Yes E11.9 DM 2 - alcohol swabs (ALCOHOL PADS) Test Three times a week. Insulin Dep? Yes E11.9 DM 2 - blood sugar diagnostic (BLOOD GLUCOSE TEST) test strip Test blood sugar(s) 3 times daily. Dx: Type 2 DM - Controlled E11.9 Insulin: Yes - lisinopril (ZESTRIL) 10 mg tablet Take 1 tablet by mouth once daily. - Comp Stocking,Knee,Regular,Med misc 2 Each once daily. - metoprolol succinate ER (TOPROL XL) 100 mg Take 1 tablet by mouth two times a day. - ticagrelor (BRILINTA) 90 mg tablet Take by mouth. [facility] - atorvastatin (LIPITOR) 40 mg tablet TAKE 1 TABLET BY MOUTH ONCE DAILY AT BEDTIME FOR CHOLESTEROL - insulin lispro (HUMALOG KWIKPEN INSULIN) 100 unit/mL 12 units 3 times daily - blood sugar diagnostic (BLOOD GLUCOSE TEST) test strip Test blood sugar(s) one times daily. Dx: 250.00. Insulin: No - BABY ASPIRIN ORAL Take by mouth. - Cholecalciferol, Vitamin D3, (DIALYVITE VITAMIN D) 125 mcg (5,000 unit) cap Take 1 capsule by mouth once daily. - Insulin Hume, Disposable, (BD ULTRA-FINE SONU PEN NEEDLE) 32 gauge x 5/32 ndle 2Use one needle for each dose. 1/day. - blood sugar diagnostic (RELION PRIME TEST STRIPS) test strip Diabetes mellitus type 2, non insulin dependent, testing 1x/day, Use as instructed - ONETOUCH ULTRA TEST test strip USE TO CHECK GLUCOSE ONCE DAILY - ibuprofen 800 mg tablet Take 1 tablet by mouth every 8 hours as needed (FOR PAIN. TAKE WITH FOOD). - MULTI-VITAMIN ORAL Take by mouth. Meds Comments as of 05/02/2024: No (more content not included)... Normal 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 Mariella is an established patient of Dr. Yovani DO. Concerns today.... Hospital follow-up --- Pt was seen in office on 05/02 and reported that she stopped all medication and trying to use natural remedies. After getting lab work (hgA1c 18, BNP 8555, and hgb of 6.8) she was sent to ER for admission. [facility] admission on 05/03 managed anemia by iron infusions and GI performed upper and lower endoscopies with unremarkable findings. Pt is Anabaptism so no blood was given. She was discharged. Then pt went to [facility] ER on 05/09 d/t BLE edema and dyspnea. BNP was > 69561, trop was negative. No infectious etiology. Hgb was 6.7. ECHO with EF of 40-45%. Seen by CHF team and stated on lasix drip. Sent home on 40 mg lasix daily. Also started on Entresto. Additional iron was given during second admission -- hgb remained stable above 7 during entire admission. 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 Had endometrial biopsy and IUD placement inpatient. One episode of hypoglycemia while inpatient -- adjusted Lantuss dosage to 12 units at bedtime. Discharged on 05/14. In office today... Cardiology appointment - does not have appointment yet. States she will make appointment this week, and waited because she wanted to get back to work and make money. Hematology appointment for iron - no appointment yet, doesn't know who she is supposed to go to. 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 States she does not want to take the insulin if she doesn't eat if it will make her blood sugars too low. Has not been checking blood sugars at home, states she does not have a meter. States she is taking herbal supplements leaf from [place] for DM and HTN currently. HTN- Lisinopril 10mg every day - reports she is taking every day but is unsure if she was still taking her old BP medication losartan. Spironolactone 25mg every day - reports she is taking a water pill everyday but is unsure which one. States she thinks she was told to stop taking the lasix States BP is usually in 120s doesn't know the bottom number Last 14 Encounter BP Readings: Date: BP: 05/24/2024 139/70 05/02/2024 162/90 05/01/2024 154/90 12/23/2022 138/78 09/16/2022 138/84 08/25/2022 140/78 01/06/2022 120/70 01/05/2022 122/70 09/10/2021 120/82 05/24/2021 136/86 04/30/2021 179/87 02/22/2021 134/78 11/11/2020 120/70 07/17/2020 142/84 Cardiac- Entresto - pt reports compliance States swelling has decreased some and is wearing compression stockings every night. Anemia- ferrous sulfate 325 mg three times daily Folic acid 1mg every day GI- Colonoscopy done on 05/05/[address] Milligan. Was instructed to follow-up with him. Does not have appointment yet. Pt reports being very tired, is not sure if it is due to her low hemoglobin. Pt expresses feeling overwhelmed and confused with all the medication changes from her hospital visits. Past medical history, appointments, medications, allergies reviewed. 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 Normal [facility] HGBEon 05-15-2024 Hgb Interpretation Detected Normal [facility] Comment on above: Result Comment: Elec tronically Signed by: BIRDIE CHRISTINE MD 05/15/2024 16:27 EST Performed By: #### F ES, PRO, TSHR, ADIFF, CBC, GFR, FOL, MG, LIP, B12, ANEU, FERR, TROPHS, CMP, MORPH #### [place] [address] Hemoglobin A1 97.7 % Normal 96.0-98.5 [facility] Comment on above: Performed By: #### F ES, PRO, TSHR, ADIFF, CBC, GFR, FOL, MG, LIP, B12, ANEU, FERR, TROPHS, CMP, MORPH #### [address] [address] Hemoglobin A2 2.3 % Normal 1.5-4.0 [facility] Comment on above: Performed By: #### F ES, PRO, TSHR, ADIFF, CBC, GFR, FOL, MG, LIP, B12, ANEU, FERR, TROPHS, CMP, MORPH #### [address] [address] .GFRon 05-14-2024 GFR >60 Normal [facility] Comment on above: Result Comment: GFR Population mean for , Non- Americans Ages 20-29 = 116 mL/min/1.73 sq.m. Ages 30-39 = 107 mL/min/1.73 sq.m. Ages 40-49 = 99 mL/min/1.73 sq.m. Ages 50-59 = 93 mL/min/1.73 sq.m. Ages 60-69 = 85 mL/min/1.73 sq.m. Ages 70+ = 75 mL/min/1.73 sq.m. Chronic Kidney Disease: Less than 60 mL/min/1.73 square meters End Stage Renal Disease: Less than 15 mL/min/1.73 square meters Performed By: #### F ES, PRO, TSHR, ADIFF, CBC, GFR, FOL, MG, LIP, B12, ANEU, FERR, TROPHS, CMP, MORPH #### [address] [address] GFR Non- >60 Normal [facility] Comment on above: Result Comment: GFR Population mean for , Non- Americans Ages 20-29 = 116 mL/min/1.73 sq.m. Ages 30-39 = 107 mL/min/1.73 sq.m. Ages 40-49 = 99 mL/min/1.73 sq.m. Ages 50-59 = 93 mL/min/1.73 sq.m. Ages 60-69 = 85 mL/min/1.73 sq.m. Ages 70+ = 75 mL/min/1.73 sq.m. Chronic Kidney Disease: Less than 60 mL/min/1.73 square meters End Stage Renal Disease: Less than 15 mL/min/1.73 square meters Performed By: #### F ES, PRO, TSHR, ADIFF, CBC, GFR, FOL, MG, LIP, B12, ANEU, FERR, TROPHS, CMP, MORPH #### [address] [address] BMPon 05-14-2024 BUN/Creatinine Ratio 29.4 ratio High 10.0-22.0 [facility] Comment on above: Performed By: #### F ES, PRO, TSHR, ADIFF, CBC, GFR, FOL, MG, LIP, B12, ANEU, FERR, TROPHS, CMP, MORPH #### [address] [address] Calcium [Mass/Vol] 8.4 mg/dL Low 8.7-10.4 [facility] Comment on above: Performed By: #### F ES, PRO, TSHR, ADIFF, CBC, GFR, FOL, MG, LIP, B12, ANEU, FERR, TROPHS, CMP, MORPH #### [address] [address] Chloride [Moles/Vol] 101 mmol/L Normal 98-110 [facility] Comment on above: Performed By: #### F ES, PRO, TSHR, ADIFF, CBC, GFR, FOL, MG, LIP, B12, ANEU, FERR, TROPHS, CMP, MORPH #### [address] [address] CO2 [Moles/Vol] 30 mmol/L Normal 22-32 [facility] Comment on above: Performed By: #### F ES, PRO, TSHR, ADIFF, CBC, GFR, FOL, MG, LIP, B12, ANEU, FERR, TROPHS, CMP, MORPH #### [address] [address] Creatinine [Mass/Vol] 0.85 mg/dL Normal 0.50-1.20 [facility] Comment on above: Result Comment: Test ing performed on Insurity analyzer using enzymatic creatinine methodology. Performed By: #### F ES, PRO, TSHR, ADIFF, CBC, GFR, FOL, MG, LIP, B12, ANEU, FERR, TROPHS, CMP, MORPH #### [address] [address] Electrolyte Balance 3.0 mEq/L Low 4.0-15.0 [facility] Comment on above: Performed By: #### F ES, PRO, TSHR, ADIFF, CBC, GFR, FOL, MG, LIP, B12, ANEU, FERR, TROPHS, CMP, MORPH #### [address] [address] Glucose [Mass/Vol] 324 mg/dL High 70-110 [facility] Comment on above: Performed By: #### F ES, PRO, TSHR, ADIFF, CBC, GFR, FOL, MG, LIP, B12, ANEU, FERR, TROPHS, CMP, MORPH #### [address] [address] Potassium [Moles/Vol] 4.5 mmol/L Normal 3.5-5.0 [facility] Comment on above: Performed By: #### F ES, PRO, TSHR, ADIFF, CBC, GFR, FOL, MG, LIP, B12, ANEU, FERR, TROPHS, CMP, MORPH #### [place] [address] [place] [address] Sodium [Moles/Vol] 134 mmol/L Low 136-145 [facility] Comment on above: Performed By: #### F ES, PRO, TSHR, ADIFF, CBC, GFR, FOL, MG, LIP, B12, ANEU, FERR, TROPHS, CMP, MORPH #### [place] [address] [place] [address] Urea nitrogen [Mass/Vol] 25.0 mg/dL High 8.0-22.0 [facility] Comment on above: Performed By: #### F ES, PRO, TSHR, ADIFF, CBC, GFR, FOL, MG, LIP, B12, ANEU, FERR, TROPHS, CMP, MORPH #### [place] [address] [place] [address] Basic Metabolic Profile (BMP )on 05-14-2024 BUN Normal 7-18 [facility] Comment on above: Result Comment: Canc elled via OM: Order cancelled - Patient discharged Performed By: #### L 500.4050, L3410.9999, L300.3900 #### [facility] [address] [place], [address] BUN/CRE Normal 10-20 [facility] Comment on above: Result Comment: Canc elled via OM: Order cancelled - Patient discharged Performed By: #### L 500.4050, L3410.9999, L300.3900 #### [facility] [address] [place], [address] CA,Total Normal 8.5-10.1 [facility] Comment on above: Result Comment: Canc elled via OM: Order cancelled - Patient discharged Performed By: #### L 500.4050, [id number], L300.3900 #### [facility] [address] [place], [address] CL Normal 98-107 [facility] Comment on above: Result Comment: Canc elled via OM: Order cancelled - Patient discharged Performed By: #### L 500.4050, L3410.9999, L300.3900 #### [facility] [address] [place], [address] CO2 Normal 21.0-32.0 [facility] Comment on above: Result Comment: Canc elled via OM: Order cancelled - Patient discharged Performed By: #### L [id number], [id number], L300.3900 #### [facility] [address] [place], [address] CREAT,SERUM Normal 0.55-1.02 [facility] Comment on above: Result Comment: Canc elled via OM: Order cancelled - Patient discharged Performed By: #### L 500.4050, [id number], L300.3900 #### [facility] [address] [place], [address] EST GFR Normal >60 [facility] Comment on above: Result Comment: Canc elled via OM: Order cancelled - Patient discharged Performed By: #### L 500.4050, L3410.9999, L300.3900 #### [facility] [address] [place], [address] EST GFR - AA Normal >60 [facility] Comment on above: Result Comment: Canc elled via OM: Order cancelled - Patient discharged Performed By: #### L 500.4050, L3410.9999, L300.3900 #### [facility] [address] [place], [address] GAP Normal 5-15 [facility] Comment on above: Result Comment: Canc elled via OM: Order cancelled - Patient discharged Performed By: #### L 500.4050, L3410.9999, L300.3900 #### [facility] [address] [place], [address] GLU Normal 74-106 [facility] Comment on above: Result Comment: Canc elled via OM: Order cancelled - Patient discharged Performed By: #### L 500.4050, L3410.9999, L300.3900 #### [facility] [address] [place], [address] Potassium Normal 3.5-5.1 [facility] Comment on above: Result Comment: Canc elled via OM: Order cancelled - Patient discharged Performed By: #### L 500.4050, L3410.9999, L300.3900 #### [facility] [address] [place], [address] Basic Metabolic Profile (BMP) Normal 136-145 [facility] Comment on above: Result Comment: Canc elled via OM: Order cancelled - Patient discharged Performed By: #### L 500.4050, L3410.9999, L300.3900 #### [facility] [address] [place], [address] CBC W/Diff, Automatedon - Absolute Neut Normal 2.0-7.7 [facility] Comment on above: Result Comment: Canc elled via OM: Order cancelled - Patient discharged Performed By: #### L 500.4050, L3410.9999, L300.3900 #### [facility] [address] [place], [address] HCT Normal 37-47 [facility] Comment on above: Result Comment: Canc elled via OM: Order cancelled - Patient discharged Performed By: #### L 500.4050, L3410.9999, L300.3900 #### [facility] [address] [place], [address] HGB Normal 12.0-15.0 [facility] Comment on above: Result Comment: Canc elled via OM: Order cancelled - Patient discharged Performed By: #### L 500.4050, L3410.9999, L300.3900 #### [facility] [address] [place], [address] MCH Normal 27.0-32.0 [facility] Comment on above: Result Comment: Canc elled via OM: Order cancelled - Patient discharged Performed By: #### L 500.4050, L3410.9999, L300.3900 #### [facility] [address] [place], [address] MCHC Normal 32-36 [facility] Comment on above: Result Comment: Canc elled via OM: Order cancelled - Patient discharged Performed By: #### L 500.4050, L3410.9999, L300.3900 #### [facility] [address] [place], [address] MCV Normal 81-99 [facility] Comment on above: Result Comment: Canc elled via OM: Order cancelled - Patient discharged Performed By: #### L 500.4050, L3410.9999, L300.3900 #### [facility] [address] [place], [address] NEUT% Normal 47-70 [facility] Comment on above: Result Comment: Canc elled via OM: Order cancelled - Patient discharged Performed By: #### L 500.4050, L3410.9999, L300.3900 #### [facility] [address] [place], [address] PLT Normal 150-450 [facility] Comment on above: Result Comment: Canc elled via OM: Order cancelled - Patient discharged Performed By: #### L 500.4050, L3410.9999, L300.3900 #### [facility] [address] [place], [address] RBC Normal 4.2-5.4 [facility] Comment on above: Result Comment: Canc elled via OM: Order cancelled - Patient discharged Performed By: #### L 500.4050, L3410.9999, L300.3900 #### [facility] [address] [place], [address] RDW CV Normal 11.6-14.6 [facility] Comment on above: Result Comment: Canc elled via OM: Order cancelled - Patient discharged Performed By: #### L 500.4050, L3410.9999, L300.3900 #### [facility] [address] [place], [address] RDW SD Normal 35.1-43.9 [facility] Comment on above: Result Comment: Canc elled via OM: Order cancelled - Patient discharged Performed By: #### L 500.4050, L3410.9999, L300.3900 #### [facility] [address] [place], [address] WBC Normal 4.4-11.0 [facility] Comment on above: Result Comment: Canc elled via OM: Order cancelled - Patient discharged Performed By: #### L 500.4050, L3410.9999, L300.3900 #### [facility] [address] [place], [address] Final Surgical Pathology Rep zuleyma 05-14-2024 Final Surgical Pathology Report . Pathology Reports Accession: Collected Date/Time: Received Date/Time: Pathologist: [id number] 05/11/2024 21:46 EST 05/13/2024 09:31 EST JONI VU MD Final Surgical Pathology Report DIAGNOSIS: ENDOMETRIUM, BIOPSY: - FRAGMENTS OF PROLIFERATIVE ENDOMETRIUM WITHOUT ATYPIA OR MALIGNANCY CLINICAL INFORMATION: Procedure: ENDOMETRIAL BIOPSY Preoperative diagnosis: AUB Postoperative diagnosis: AUB SPECIMEN: A ENDOMETRIAL BX GROSS DESCRIPTION: All parts labelled with patient name and [id number] Received in formalin labeled endometrial biopsy are multiple wispy edwards-pink tissue fragments aggregating 0.7 x 0.2 x 0.1 cm greatest dimension. Smallest fragments may not survive processings. TS-1 Ana María Sapp, Grossing Credit Counselor/ Dr. Joni Vu, Pathologist Performed by Ana María Sapp MICROSCOPIC DESCRIPTION: The microscopic examination is performed, except in the case of Gross Only. Verified by Pathology Report verified by [facility] JONI VU Sign out Date: 05/14/2024 13:23 Performing Lab: [facility], [address] [place] [address] Pathology Dept Disclaimer If ancillary studies were utilized, the following Laboratory Developed Test (LDT) disclaimer will apply: Under CLIA requirements, [facility] Pathology Laboratory is qualified to perform high complexity testing. For all ancillary stains, positive and negative controls stain appropriately. Performance characteristics of immunohistochemical and chromogenic in-situ hybridization tests have been determined by [facility] Pathology Laboratory. These tests are used for clinical purposes, They should not be regarded as investigational or for research. Normal [facility] Final Surgical Pathology Report #[id number] [facility] Work Phone: Final Surgical Pathology Report #[id number] [facility] Work Phone: Final Surgical Pathology Report #[id number] [facility] Work Phone: Final Surgical Pathology Report #[id number] [facility] Work Phone: Final Surgical Pathology Report #[id number] [facility] Work Phone: Final Surgical Pathology Report #[id number] [facility] Work Phone: Final Surgical Pathology Report #[id number] [facility] Work Phone: LABORATORYOrdered By: Francesca Garcia on 05-14-2024 Blood Glucose Testing Reason Routine (05/14/24 7:15 AM) [facility] Work Phone: Glucose [Mass/Vol] 228 mg/dL High 70 - 110 mg/dL [facility] Work Phone: LABORATORYOrdered By: SYSTEM SYSTEM on 05-14-2024 Calcium [Mass/Vol] 8.4 mg/dL Low 8.7 - 10. 4 mg/dL ADM SS Chloride [Moles/Vol] 101 mmol/L Normal 98 - 110 mEq/L AH ADM SS CO2 [Moles/Vol] 30 mmol/L Normal 22 - 32 mEq/L AH ADM SS Creatinine [Mass/Vol] 0.85 mg/dL Normal 0.50 - 1.20 mg/dL AH ADM SS Comment on above: Interpretive Data: T esting performed on Insurity analyzer using enzymatic creatinine methodology. Electrolyte Balance 3.0 mEq/L Low 4.0 - 15 .0 mEq/L ADM SS GFR/1.73 sq M.predicted among blacks MDRD (S/P/Bld) [Vol rate/Area] ml/min/1.73sqm Invalid Interpretation Code [employer] Chemistry S Comment on above: Interpretive Data: GFR Population mean for , Non- Americans Ages 20-29 = 116 mL/min/1.73 sq.m. Ages 30-39 = 107 mL/min/1.73 sq.m. Ages 40-49 = 99 mL/min/1.73 sq.m. Ages 50-59 = 93 mL/min/1.73 sq.m. Ages 60-69 = 85 mL/min/1.73 sq.m. Ages 70+ = 75 mL/min/1.73 sq.m. Chronic Kidney Disease: Less than 60 mL/min/1.73 square meters End Stage Renal Disease: Less than 15 mL/min/1.73 square meters GFR/1.73 sq M.predicted among non-blacks MDRD (S/P/Bld) [Vol rate/Area] ml/min/1.73sqm Invalid Interpretation Code [employer] Chemistry S Comment on above: Interpretive Data: GFR Population mean for , Non- Americans Ages 20-29 = 116 mL/min/1.73 sq.m. Ages 30-39 = 107 mL/min/1.73 sq.m. Ages 40-49 = 99 mL/min/1.73 sq.m. Ages 50-59 = 93 mL/min/1.73 sq.m. Ages 60-69 = 85 mL/min/1.73 sq.m. Ages 70+ = 75 mL/min/1.73 sq.m. Chronic Kidney Disease: Less than 60 mL/min/1.73 square meters End Stage Renal Disease: Less than 15 mL/min/1.73 square meters Glucose [Mass/Vol] 324 mg/dL High 70 - 110 mg/dL ADM SS Magnesium [Mass/Vol] 2.0 mg/dL Normal 1.6 - 2.4 mg/dL ADM SS Potassium [Moles/Vol] 4.5 mmol/L Normal 3.5 - 5.0 mEq/L ADM SS Sodium [Moles/Vol] 134 mmol/L Low 136 - 145 mEq/L ADM SS Urea nitrogen [Mass/Vol] 25.0 mg/dL High 8.0 - 22.0 mg/dL ADM SS Urea nitrogen/Creatinine [Mass ratio] 29.4 ratio High 10.0 - 22.0 ratio ADM SS MGon 05-14-2024 Magnesium [Mass/Vol] 2.0 mg/dL Normal 1.6-2.4 [facility] Comment on above: Performed By: #### F ES, PRO, TSHR, ADIFF, CBC, GFR, FOL, MG, LIP, B12, ANEU, FERR, TROPHS, CMP, MORPH #### [address] [address] .GFRon 05-13-2024 GFR >60 Normal [facility] Comment on above: Result Comment: GFR Population mean for , Non- Americans Ages 20-29 = 116 mL/min/1.73 sq.m. Ages 30-39 = 107 mL/min/1.73 sq.m. Ages 40-49 = 99 mL/min/1.73 sq.m. Ages 50-59 = 93 mL/min/1.73 sq.m. Ages 60-69 = 85 mL/min/1.73 sq.m. Ages 70+ = 75 mL/min/1.73 sq.m. Chronic Kidney Disease: Less than 60 mL/min/1.73 square meters End Stage Renal Disease: Less than 15 mL/min/1.73 square meters Performed By: #### F ES, PRO, TSHR, ADIFF, CBC, GFR, FOL, MG, LIP, B12, ANEU, FERR, TROPHS, CMP, MORPH #### [address] [address] GFR Non- 54 ml/min/1.73sqm Normal [facility] Comment on above: Result Comment: GFR Population mean for , Non- Americans Ages 20-29 = 116 mL/min/1.73 sq.m. Ages 30-39 = 107 mL/min/1.73 sq.m. Ages 40-49 = 99 mL/min/1.73 sq.m. Ages 50-59 = 93 mL/min/1.73 sq.m. Ages 60-69 = 85 mL/min/1.73 sq.m. Ages 70+ = 75 mL/min/1.73 sq.m. Chronic Kidney Disease: Less than 60 mL/min/1.73 square meters End Stage Renal Disease: Less than 15 mL/min/1.73 square meters Performed By: #### F ES, PRO, TSHR, ADIFF, CBC, GFR, FOL, MG, LIP, B12, ANEU, FERR, TROPHS, CMP, MORPH #### [place] [id number] BMPon 05-13-2024 BUN/Creatinine Ratio 28.0 ratio High 10.0-22.0 [facility] Comment on above: Performed By: #### F ES, PRO, TSHR, ADIFF, CBC, GFR, FOL, MG, LIP, B12, ANEU, FERR, TROPHS, CMP, MORPH #### [address] [address] Calcium [Mass/Vol] 8.9 mg/dL Normal 8.7-10.4 [facility] Comment on above: Performed By: #### F ES, PRO, TSHR, ADIFF, CBC, GFR, FOL, MG, LIP, B12, ANEU, FERR, TROPHS, CMP, MORPH #### [address] [address] Chloride [Moles/Vol] 100 mmol/L Normal 98-110 [facility] Comment on above: Performed By: #### F ES, PRO, TSHR, ADIFF, CBC, GFR, FOL, MG, LIP, B12, ANEU, FERR, TROPHS, CMP, MORPH #### [address] [address] CO2 [Moles/Vol] 32 mmol/L Normal 22-32 [facility] Comment on above: Performed By: #### F ES, PRO, TSHR, ADIFF, CBC, GFR, FOL, MG, LIP, B12, ANEU, FERR, TROPHS, CMP, MORPH #### [address] [address] Creatinine [Mass/Vol] 1.07 mg/dL Normal 0.50-1.20 [facility] Comment on above: Result Comment: Test ing performed on Insurity analyzer using enzymatic creatinine methodology. Performed By: #### F ES, PRO, TSHR, ADIFF, CBC, GFR, FOL, MG, LIP, B12, ANEU, FERR, TROPHS, CMP, MORPH #### [address] [address] Electrolyte Balance 4.0 mEq/L Normal 4.0-15.0 [facility] Comment on above: Performed By: #### F ES, PRO, TSHR, ADIFF, CBC, GFR, FOL, MG, LIP, B12, ANEU, FERR, TROPHS, CMP, MORPH #### [address] [address] Glucose [Mass/Vol] 296 mg/dL High 70-110 [facility] Comment on above: Performed By: #### F ES, PRO, TSHR, ADIFF, CBC, GFR, FOL, MG, LIP, B12, ANEU, FERR, TROPHS, CMP, MORPH #### [address] [address] Potassium [Moles/Vol] 5.0 mmol/L Normal 3.5-5.0 [facility] Comment on above: Performed By: #### F ES, PRO, TSHR, ADIFF, CBC, GFR, FOL, MG, LIP, B12, ANEU, FERR, TROPHS, CMP, MORPH #### [address] [address] Sodium [Moles/Vol] 136 mmol/L Normal 136-145 [facility] Comment on above: Performed By: #### F ES, PRO, TSHR, ADIFF, CBC, GFR, FOL, MG, LIP, B12, ANEU, FERR, TROPHS, CMP, MORPH #### [place] [address] [place] [address] Urea nitrogen [Mass/Vol] 30.0 mg/dL High 8.0-22.0 [facility] Comment on above: Performed By: #### F ES, PRO, TSHR, ADIFF, CBC, GFR, FOL, MG, LIP, B12, ANEU, FERR, TROPHS, CMP, MORPH #### [place] [address] [place] [address] Basic Metabolic Profile (BMP )on 05-13-2024 BUN Normal 7-18 [facility] Comment on above: Result Comment: Canc elled via OM: Order cancelled - Patient discharged Performed By: #### L 500.4050, L3410.9999, L300.3900 #### [facility] [address] [place], [address] BUN/CRE Normal 10-20 [facility] Comment on above: Result Comment: Canc elled via OM: Order cancelled - Patient discharged Performed By: #### L 500.4050, L3410.9999, L300.3900 #### [facility] [address] [place], [address] CA,Total Normal 8.5-10.1 [facility] Comment on above: Result Comment: Canc elled via OM: Order cancelled - Patient discharged Performed By: #### L 500.4050, L3410.9999, L300.3900 #### [facility] [address] [place], [address] CL Normal 98-107 [facility] Comment on above: Result Comment: Canc elled via OM: Order cancelled - Patient discharged Performed By: #### L 500.4050, L3410.9999, L300.3900 #### [facility] [address] [place], [address] CO2 Normal 21.0-32.0 [facility] Comment on above: Result Comment: Canc elled via OM: Order cancelled - Patient discharged Performed By: #### L 500.4050, L3410.9999, L300.3900 #### [facility] [address] [place], [address] CREAT,SERUM Normal 0.55-1.02 [facility] Comment on above: Result Comment: Canc elled via OM: Order cancelled - Patient discharged Performed By: #### L 500.4050, L3410.9999, L300.3900 #### [facility] [address] [place], [address] EST GFR Normal >60 [facility] Comment on above: Result Comment: Canc elled via OM: Order cancelled - Patient discharged Performed By: #### L 500.4050, L3410.9999, L300.3900 #### [facility] [address] [place], [address] EST GFR - AA Normal >60 [facility] Comment on above: Result Comment: Canc elled via OM: Order cancelled - Patient discharged Performed By: #### L 500.4050, L3410.9999, L300.3900 #### [facility] [address] [place], [address] GAP Normal 5-15 [facility] Comment on above: Result Comment: Canc elled via OM: Order cancelled - Patient discharged Performed By: #### L 500.4050, L3410.9999, L300.3900 #### [facility] [address] [place], [address] GLU Normal 74-106 [facility] Comment on above: Result Comment: Canc elled via OM: Order cancelled - Patient discharged Performed By: #### L 500.4050, L3410.9999, L300.3900 #### [facility] [address] [place], [address] Potassium Normal 3.5-5.1 [facility] Comment on above: Result Comment: Canc elled via OM: Order cancelled - Patient discharged Performed By: #### L 500.4050, L3410.9999, L300.3900 #### [facility] [address] [place], [address] Basic Metabolic Profile (BMP) Normal 136-145 [facility] Comment on above: Result Comment: Canc elled via OM: Order cancelled - Patient discharged Performed By: #### L 500.4050, L3410.9999, L300.3900 #### [facility] [address] [place], [address] CBC W/Diff, Automatedon - Absolute Neut Normal 2.0-7.7 [facility] Comment on above: Result Comment: Canc elled via OM: Order cancelled - Patient discharged Performed By: #### L 500.4050, L3410.9999, L300.3900 #### [facility] [address] [place], [address] HCT Normal 37-47 [facility] Comment on above: Result Comment: Canc elled via OM: Order cancelled - Patient discharged Performed By: #### L 500.4050, L3410.9999, L300.3900 #### [facility] [address] [place], [address] HGB Normal 12.0-15.0 [facility] Comment on above: Result Comment: Canc elled via OM: Order cancelled - Patient discharged Performed By: #### L 500.4050, L3410.9999, L300.3900 #### [facility] [address] [place], [address] MCH Normal 27.0-32.0 [facility] Comment on above: Result Comment: Canc elled via OM: Order cancelled - Patient discharged Performed By: #### L 500.4050, L3410.9999, L300.3900 #### [facility] [address] [place], [address] MCHC Normal 32-36 [facility] Comment on above: Result Comment: Canc elled via OM: Order cancelled - Patient discharged Performed By: #### L 500.4050, L3410.9999, L300.3900 #### [facility] [address] [place], [address] MCV Normal 81-99 [facility] Comment on above: Result Comment: Canc elled via OM: Order cancelled - Patient discharged Performed By: #### L 500.4050, L3410.9999, L300.3900 #### [facility] [address] [place], [address] NEUT% Normal 47-70 [facility] Comment on above: Result Comment: Canc elled via OM: Order cancelled - Patient discharged Performed By: #### L 500.4050, L3410.9999, L300.3900 #### [facility] [address] [place], [address] PLT Normal 150-450 [facility] Comment on above: Result Comment: Canc elled via OM: Order cancelled - Patient discharged Performed By: #### L 500.4050, L3410.9999, L300.3900 #### [facility] [address] [place], [address] RBC Normal 4.2-5.4 [facility] Comment on above: Result Comment: Canc elled via OM: Order cancelled - Patient discharged Performed By: #### L 500.4050, L3410.9999, L300.3900 #### [facility] [address] [place], [address] RDW CV Normal 11.6-14.6 [facility] Comment on above: Result Comment: Canc elled via OM: Order cancelled - Patient discharged Performed By: #### L 500.4050, L3410.9999, L300.3900 #### [facility] [address] [place], [address] RDW SD Normal 35.1-43.9 [facility] Comment on above: Result Comment: Canc elled via OM: Order cancelled - Patient discharged Performed By: #### L 500.4050, L3410.9999, L300.3900 #### [facility] [address] [place], [address] WBC Normal 4.4-11.0 [facility] Comment on above: Result Comment: Canc elled via OM: Order cancelled - Patient discharged Performed By: #### L 500.4050, L3410.9999, L300.3900 #### [facility] [address] [place], [address] HHon 05-13-2024 Hematocrit (Bld) [Volume fraction] 24.6 % Low 34.0-46.0 [facility] Comment on above: Performed By: #### F ES, PRO, TSHR, ADIFF, CBC, GFR, FOL, MG, LIP, B12, ANEU, FERR, TROPHS, CMP, MORPH #### [place] [address] Hgb 7.4 G/dL Low 12.0-16.0 [facility] Comment on above: Performed By: #### F ES, PRO, TSHR, ADIFF, CBC, GFR, FOL, MG, LIP, B12, ANEU, FERR, TROPHS, CMP, MORPH #### [address] [address] [place] 05-13-2024 Potassium [Moles/Vol] 4.2 mmol/L Normal 3.5-5.0 [facility] Comment on above: Performed By: #### F ES, PRO, TSHR, ADIFF, CBC, GFR, FOL, MG, LIP, B12, ANEU, FERR, TROPHS, CMP, MORPH #### [facility] [address] [place] [address] LABORATORYOrdered By: Obed Mitchell on 05-13-2024 Blood Glucose Testing Reason Routine (05/13/24 9:08 PM) [facility] Work Phone: Glucose [Mass/Vol] 161 mg/dL High 70 - 110 mg/dL [facility] Work Phone: LABORATORYOrdered By: Maribel Simon on 05-13-2024 Glucose [Mass/Vol] 149 mg/dL High 70 - 110 mg/dL [facility] Work Phone: LABORATORYOrdered By: Francesca Garcia on 05-13-2024 Blood Glucose Testing Reason Routine (05/13/24 11:06 AM) [facility] Work Phone: LABORATORYOrdered By: SYSTEM SYSTEM on 05-13-2024 Potassium [Moles/Vol] 4.2 mmol/L Normal 3.5 - 5.0 mEq/L ADM SS Calcium [Mass/Vol] 8.9 mg/dL Normal 8.7 - 10. 4 mg/dL ADM SS Chloride [Moles/Vol] 100 mmol/L Normal 98 - 110 mEq/L ADM SS CO2 [Moles/Vol] 32 mmol/L Normal 22 - 32 mEq/L ADM SS Creatinine [Mass/Vol] 1.07 mg/dL Normal 0.50 - 1.20 mg/dL ADM SS Comment on above: Interpretive Data: T esting performed on Insurity analyzer using enzymatic creatinine methodology. Electrolyte Balance 4.0 mEq/L Normal 4.0 - 15 .0 mEq/L ADM SS GFR/1.73 sq M.predicted among blacks MDRD (S/P/Bld) [Vol rate/Area] ml/min/1.73sqm Invalid Interpretation Code Chemistry S Comment on above: Interpretive Data: GFR Population mean for , Non- Americans Ages 20-29 = 116 mL/min/1.73 sq.m. Ages 30-39 = 107 mL/min/1.73 sq.m. Ages 40-49 = 99 mL/min/1.73 sq.m. Ages 50-59 = 93 mL/min/1.73 sq.m. Ages 60-69 = 85 mL/min/1.73 sq.m. Ages 70+ = 75 mL/min/1.73 sq.m. Chronic Kidney Disease: Less than 60 mL/min/1.73 square meters End Stage Renal Disease: Less than 15 mL/min/1.73 square meters GFR/1.73 sq M.predicted among non-blacks MDRD (S/P/Bld) [Vol rate/Area] 54 ml/min/1.73sqm Invalid Interpretation Code Chemistry S Comment on above: Interpretive Data: GFR Population mean for , Non- Americans Ages 20-29 = 116 mL/min/1.73 sq.m. Ages 30-39 = 107 mL/min/1.73 sq.m. Ages 40-49 = 99 mL/min/1.73 sq.m. Ages 50-59 = 93 mL/min/1.73 sq.m. Ages 60-69 = 85 mL/min/1.73 sq.m. Ages 70+ = 75 mL/min/1.73 sq.m. Chronic Kidney Disease: Less than 60 mL/min/1.73 square meters End Stage Renal Disease: Less than 15 mL/min/1.73 square meters Glucose [Mass/Vol] 296 mg/dL High 70 - 110 mg/dL ADM SS Hematocrit (Bld) [Volume fraction] 24.6 % Low 34.0 - 46.0 % Workflow SS Hemoglobin (Bld) [Mass/Vol] 7.4 G/dL Low 12.0 - 16.0 G/dL Workflow SS Magnesium [Mass/Vol] 2.0 mg/dL Normal 1.6 - 2.4 mg/dL ADM SS Potassium [Moles/Vol] 5.0 mmol/L Normal 3.5 - 5.0 mEq/L ADM SS Sodium [Moles/Vol] 136 mmol/L Normal 136 - 145 mEq/L ADM SS Urea nitrogen [Mass/Vol] 30.0 mg/dL High 8.0 - 22.0 mg/dL ADM SS Urea nitrogen/Creatinine [Mass ratio] 28.0 ratio High 10.0 - 22.0 ratio ADM SS MGon 05-13-2024 Magnesium [Mass/Vol] 2.0 mg/dL Normal 1.6-2.4 [facility] Comment on above: Performed By: #### F ES, PRO, TSHR, ADIFF, CBC, GFR, FOL, MG, LIP, B12, ANEU, FERR, TROPHS, CMP, MORPH #### [address] [address] .Auto Diffon 05-12-2024 Basophil, Absolute 0.1 10 3/mcL Normal 0.0-0.3 [facility] Comment on above: Performed By: #### F ES, PRO, TSHR, ADIFF, CBC, GFR, FOL, MG, LIP, B12, ANEU, FERR, TROPHS, CMP, MORPH #### [address] [address] Basophils/100 WBC (Bld) 1.3 % Normal 0.0-2.5 [facility] Comment on above: Performed By: #### F ES, PRO, TSHR, ADIFF, CBC, GFR, FOL, MG, LIP, B12, ANEU, FERR, TROPHS, CMP, MORPH #### [address] [address] Eosinophil, Absolute 0.2 10 3/mcL Normal 0.0-0.7 [facility] Comment on above: Performed By: #### F ES, PRO, TSHR, ADIFF, CBC, GFR, FOL, MG, LIP, B12, ANEU, FERR, TROPHS, CMP, MORPH #### [address] [address] Eosinophils/100 WBC (Bld) 4.2 % Normal 0.0-6.0 [facility] Comment on above: Performed By: #### F ES, PRO, TSHR, ADIFF, CBC, GFR, FOL, MG, LIP, B12, ANEU, FERR, TROPHS, CMP, MORPH #### [address] [address] Lymphocyte, Absolute 0.8 10 3/mcL Low 0.9-4.3 [facility] Comment on above: Performed By: #### F ES, PRO, TSHR, ADIFF, CBC, GFR, FOL, MG, LIP, B12, ANEU, FERR, TROPHS, CMP, MORPH #### [address] [address] Lymphocytes/100 WBC (Bld) 21.0 % Normal 20.0-40.0 [facility] Comment on above: Performed By: #### F ES, PRO, TSHR, ADIFF, CBC, GFR, FOL, MG, LIP, B12, ANEU, FERR, TROPHS, CMP, MORPH #### [address] [address] Monocyte, Absolute 0.3 10 3/mcL Normal 0.1-1.4 [facility] Comment on above: Performed By: #### F ES, PRO, TSHR, ADIFF, CBC, GFR, FOL, MG, LIP, B12, ANEU, FERR, TROPHS, CMP, MORPH #### [address] [address] Monocytes/100 WBC (Bld) 7.4 % Normal 2.0-13.0 [facility] Comment on above: Performed By: #### F ES, PRO, TSHR, ADIFF, CBC, GFR, FOL, MG, LIP, B12, ANEU, FERR, TROPHS, CMP, MORPH #### [address] [address] Neutrophils/100 WBC (Bld) 66.1 % Normal 50.0-75.0 [facility] Comment on above: Performed By: #### F ES, PRO, TSHR, ADIFF, CBC, GFR, FOL, MG, LIP, B12, ANEU, FERR, TROPHS, CMP, MORPH #### [address] [address] .GFRon 05-12-2024 GFR >60 Normal [facility] Comment on above: Result Comment: GFR Population mean for , Non- Americans Ages 20-29 = 116 mL/min/1.73 sq.m. Ages 30-39 = 107 mL/min/1.73 sq.m. Ages 40-49 = 99 mL/min/1.73 sq.m. Ages 50-59 = 93 mL/min/1.73 sq.m. Ages 60-69 = 85 mL/min/1.73 sq.m. Ages 70+ = 75 mL/min/1.73 sq.m. Chronic Kidney Disease: Less than 60 mL/min/1.73 square meters End Stage Renal Disease: Less than 15 mL/min/1.73 square meters Performed By: #### F ES, PRO, TSHR, ADIFF, CBC, GFR, FOL, MG, LIP, B12, ANEU, FERR, TROPHS, CMP, MORPH #### [address] [address] GFR Non- 54 ml/min/1.73sqm Normal [facility] Comment on above: Result Comment: GFR Population mean for , Non- Americans Ages 20-29 = 116 mL/min/1.73 sq.m. Ages 30-39 = 107 mL/min/1.73 sq.m. Ages 40-49 = 99 mL/min/1.73 sq.m. Ages 50-59 = 93 mL/min/1.73 sq.m. Ages 60-69 = 85 mL/min/1.73 sq.m. Ages 70+ = 75 mL/min/1.73 sq.m. Chronic Kidney Disease: Less than 60 mL/min/1.73 square meters End Stage Renal Disease: Less than 15 mL/min/1.73 square meters Performed By: #### F ES, PRO, TSHR, ADIFF, CBC, GFR, FOL, MG, LIP, B12, ANEU, FERR, TROPHS, CMP, MORPH #### [address] [address] .NEUABSon 05-12-2024 Neutrophil, Absolute 2.6 10 3/mcL Normal 2.3-8.1 [facility] Comment on above: Performed By: #### F ES, PRO, TSHR, ADIFF, CBC, GFR, FOL, MG, LIP, B12, ANEU, FERR, TROPHS, CMP, MORPH #### [address] [address] BMPon 05-12-2024 BUN/Creatinine Ratio 23.6 ratio High 10.0-22.0 [facility] Comment on above: Performed By: #### F ES, PRO, TSHR, ADIFF, CBC, GFR, FOL, MG, LIP, B12, ANEU, FERR, TROPHS, CMP, MORPH #### [address] [address] Calcium [Mass/Vol] 8.8 mg/dL Normal 8.7-10.4 [facility] Comment on above: Performed By: #### F ES, PRO, TSHR, ADIFF, CBC, GFR, FOL, MG, LIP, B12, ANEU, FERR, TROPHS, CMP, MORPH #### [address] [address] Chloride [Moles/Vol] 99 mmol/L Normal 98-110 [facility] Comment on above: Performed By: #### F ES, PRO, TSHR, ADIFF, CBC, GFR, FOL, MG, LIP, B12, ANEU, FERR, TROPHS, CMP, MORPH #### [address] [address] CO2 [Moles/Vol] 32 mmol/L Normal 22-32 [facility] Comment on above: Performed By: #### F ES, PRO, TSHR, ADIFF, CBC, GFR, FOL, MG, LIP, B12, ANEU, FERR, TROPHS, CMP, MORPH #### [address] [address] Creatinine [Mass/Vol] 1.06 mg/dL Normal 0.50-1.20 [facility] Comment on above: Result Comment: Test ing performed on Insurity analyzer using enzymatic creatinine methodology. Performed By: #### F ES, PRO, TSHR, ADIFF, CBC, GFR, FOL, MG, LIP, B12, ANEU, FERR, TROPHS, CMP, MORPH #### [address] [address] Electrolyte Balance 5.0 mEq/L Normal 4.0-15.0 [facility] Comment on above: Performed By: #### F ES, PRO, TSHR, ADIFF, CBC, GFR, FOL, MG, LIP, B12, ANEU, FERR, TROPHS, CMP, MORPH #### [address] [address] Glucose [Mass/Vol] 309 mg/dL High 70-110 [facility] Comment on above: Performed By: #### F ES, PRO, TSHR, ADIFF, CBC, GFR, FOL, MG, LIP, B12, ANEU, FERR, TROPHS, CMP, MORPH #### [address] [address] Potassium [Moles/Vol] 4.9 mmol/L Normal 3.5-5.0 [facility] Comment on above: Performed By: #### F ES, PRO, TSHR, ADIFF, CBC, GFR, FOL, MG, LIP, B12, ANEU, FERR, TROPHS, CMP, MORPH #### [address] [address] Sodium [Moles/Vol] 136 mmol/L Normal 136-145 [facility] Comment on above: Performed By: #### F ES, PRO, TSHR, ADIFF, CBC, GFR, FOL, MG, LIP, B12, ANEU, FERR, TROPHS, CMP, MORPH #### [address] [address] Urea nitrogen [Mass/Vol] 25.0 mg/dL High 8.0-22.0 [facility] Comment on above: Performed By: #### F ES, PRO, TSHR, ADIFF, CBC, GFR, FOL, MG, LIP, B12, ANEU, FERR, TROPHS, CMP, MORPH #### [address] [address] Basic Metabolic Profile (BMP )on 05-12-2024 BUN Normal 7-18 [facility] Comment on above: Result Comment: Canc elled via OM: Order cancelled - Patient discharged Performed By: #### L 500.4050, L3410.9999, [id number] #### [facility] [address] [place], [address] BUN/CRE Normal 10-20 [facility] Comment on above: Result Comment: Canc elled via OM: Order cancelled - Patient discharged Performed By: #### L 500.4050, L3410.9999, [id number] #### [facility] [address] [place], [address] CA,Total Normal 8.5-10.1 [facility] Comment on above: Result Comment: Canc elled via OM: Order cancelled - Patient discharged Performed By: #### L 500.4050, L3410.9999, [id number] #### [facility] [address] [place], [address] CL Normal 98-107 [facility] Comment on above: Result Comment: Canc elled via OM: Order cancelled - Patient discharged Performed By: #### L 500.4050, L3410.9999, [id number] #### [facility] [address] [place], [address] CO2 Normal 21.0-32.0 [facility] Comment on above: Result Comment: Canc elled via OM: Order cancelled - Patient discharged Performed By: #### L 500.4050, L3410.9999, [id number] #### [facility] [address] [place], [address] CREAT,SERUM Normal 0.55-1.02 [facility] Comment on above: Result Comment: Canc elled via OM: Order cancelled - Patient discharged Performed By: #### L 500.4050, L3410.9999, [id number] #### [facility] [address] [place], [address] EST GFR Normal >60 [facility] Comment on above: Result Comment: Canc elled via OM: Order cancelled - Patient discharged Performed By: #### L 500.4050, L3410.9999, [id number] #### [facility] [address] [place], [address] EST GFR - AA Normal >60 [facility] Comment on above: Result Comment: Canc elled via OM: Order cancelled - Patient discharged Performed By: #### L 500.4050, L3410.9999, [id number] #### [facility] [address] [place], [address] GAP Normal 5-15 [facility] Comment on above: Result Comment: Canc elled via OM: Order cancelled - Patient discharged Performed By: #### L 500.4050, L3410.9999, [id number] #### [facility] [address] [place], [address] GLU Normal 74-106 [facility] Comment on above: Result Comment: Canc elled via OM: Order cancelled - Patient discharged Performed By: #### L 500.4050, L3410.9999, [id number] #### [facility] [address] [place], [address] Potassium Normal 3.5-5.1 [facility] Comment on above: Result Comment: Canc elled via OM: Order cancelled - Patient discharged Performed By: #### L 500.4050, L3410.9999, [id number] #### [facility] [address] [place], [address] Basic Metabolic Profile (BMP) Normal 136-145 [facility] Comment on above: Result Comment: Canc elled via OM: Order cancelled - Patient discharged Performed By: #### L 500.4050, L3410.9999, [id number] #### [facility] [address] [place], [address] CBCon 05-12-2024 Erythrocyte distribution width (RBC) [Ratio] 21.9 % High 11.5-15.5 [facility] Comment on above: Performed By: #### F ES, PRO, TSHR, ADIFF, CBC, GFR, FOL, MG, LIP, B12, ANEU, FERR, TROPHS, CMP, MORPH #### [facility] [address] [place] [address] Hematocrit (Bld) [Volume fraction] 23.6 % Low 34.0-46.0 [facility] Comment on above: Performed By: #### F ES, PRO, TSHR, ADIFF, CBC, GFR, FOL, MG, LIP, B12, ANEU, FERR, TROPHS, CMP, MORPH #### [place] [id number] Hgb 7.0 G/dL Low 12.0-16.0 [facility] Comment on above: Performed By: #### F ES, PRO, TSHR, ADIFF, CBC, GFR, FOL, MG, LIP, B12, ANEU, FERR, TROPHS, CMP, MORPH #### [place] [address] MCH (RBC) [Entitic mass] 20.5 pg Low 27.0-33.0 [facility] Comment on above: Performed By: #### F ES, PRO, TSHR, ADIFF, CBC, GFR, FOL, MG, LIP, B12, ANEU, FERR, TROPHS, CMP, MORPH #### [place] [id number] MCHC 29.6 G/dL Low 32.0-36.0 [facility] Comment on above: Performed By: #### F ES, PRO, TSHR, ADIFF, CBC, GFR, FOL, MG, LIP, B12, ANEU, FERR, TROPHS, CMP, MORPH #### [place] [address] MCV (RBC) [Entitic vol] 69.3 fL Low 80.0-99.0 [facility] Comment on above: Performed By: #### F ES, PRO, TSHR, ADIFF, CBC, GFR, FOL, MG, LIP, B12, ANEU, FERR, TROPHS, CMP, MORPH #### [place] [id number] Platelet 298 10 3/mcL Normal 150-450 [facility] Comment on above: Performed By: #### F ES, PRO, TSHR, ADIFF, CBC, GFR, FOL, MG, LIP, B12, ANEU, FERR, TROPHS, CMP, MORPH #### [place] [id number] Platelet mean volume (Bld) [Entitic vol] 8.6 fL Normal 6.6-10.5 [facility] Comment on above: Performed By: #### F ES, PRO, TSHR, ADIFF, CBC, GFR, FOL, MG, LIP, B12, ANEU, FERR, TROPHS, CMP, MORPH #### [address] [address] RBC 3.41 10 6/mcL Low 4.10-5.30 [facility] Comment on above: Performed By: #### F ES, PRO, TSHR, ADIFF, CBC, GFR, FOL, MG, LIP, B12, ANEU, FERR, TROPHS, CMP, MORPH #### [address] [address] WBC 4.0 10 3/mcL Low 4.5-10.8 [facility] Comment on above: Performed By: #### F ES, PRO, TSHR, ADIFF, CBC, GFR, FOL, MG, LIP, B12, ANEU, FERR, TROPHS, CMP, MORPH #### [address] [address] CBC W/Diff, Automatedon 04-18 Absolute Neut Normal 2.0-7.7 [facility] Comment on above: Result Comment: Canc elled via OM: Order cancelled - Patient discharged Performed By: #### L 500.4050, L3410.9999, [id number] #### [facility] [address] [place], [address] HCT Normal 37-47 [facility] Comment on above: Result Comment: Canc elled via OM: Order cancelled - Patient discharged Performed By: #### L 500.4050, L3410.9999, [id number] #### [facility] [address] [place], [address] HGB Normal 12.0-15.0 [facility] Comment on above: Result Comment: Canc elled via OM: Order cancelled - Patient discharged Performed By: #### L 500.4050, L3410.9999, [id number] #### [facility] [address] [place], [address] MCH Normal 27.0-32.0 [facility] Comment on above: Result Comment: Canc elled via OM: Order cancelled - Patient discharged Performed By: #### L 500.4050, L3410.9999, [id number] #### [facility] [address] [place], [address] MCHC Normal 32-36 [facility] Comment on above: Result Comment: Canc elled via OM: Order cancelled - Patient discharged Performed By: #### L 500.4050, L3410.9999, [id number] #### [facility] [address] [place], [address] MCV Normal 81-99 [facility] Comment on above: Result Comment: Canc elled via OM: Order cancelled - Patient discharged Performed By: #### L 500.4050, L3410.9999, [id number] #### [facility] [address] [place], [address] NEUT% Normal 47-70 [facility] Comment on above: Result Comment: Canc elled via OM: Order cancelled - Patient discharged Performed By: #### L 500.4050, L3410.9999, [id number] #### [facility] [address] [place], [address] PLT Normal 150-450 [facility] Comment on above: Result Comment: Canc elled via OM: Order cancelled - Patient discharged Performed By: #### L 500.4050, L3410.9999, [id number] #### [facility] [address] [place], [address] RBC Normal 4.2-5.4 [facility] Comment on above: Result Comment: Canc elled via OM: Order cancelled - Patient discharged Performed By: #### L 500.4050, L3410.9999, L300.3900 #### [facility] [address] [place], [address] RDW CV Normal 11.6-14.6 [facility] Comment on above: Result Comment: Canc elled via OM: Order cancelled - Patient discharged Performed By: #### L 500.4050, L3410.9999, L300.3900 #### [facility] [address] [place], [address] RDW SD Normal 35.1-43.9 [facility] Comment on above: Result Comment: Canc elled via OM: Order cancelled - Patient discharged Performed By: #### L 500.4050, L3410.9999, L300.3900 #### [facility] [address] [place], [address] WBC Normal 4.4-11.0 [facility] Comment on above: Result Comment: Canc elled via OM: Order cancelled - Patient discharged Performed By: #### L 500.4050, L3410.9999, [id number] #### [facility] [address] [place], [address] CTPCRon 05-12-2024 C. trachomatis Interp Normal See CT Interp N [facility] Comment on above: Result Comment: C. t rachomatis DNA not detected. Specimen is presumptive negative for C. trachomatis. A negative result does not preclude C. trachomatis infection because results depend on adequate specimen collection, absence of inhibitors, and sufficient DNA to be detected. See CT Interp N Performed By: #### F ES, PRO, TSHR, ADIFF, CBC, GFR, FOL, MG, LIP, B12, ANEU, FERR, TROPHS, CMP, MORPH #### [facility] [address] [place] [address] C.trachomatis PCR Negative Normal Negative [facility] Comment on above: Result Comment: John lopez (PCR) assay performed on the [employer] 4800 system. Performed By: #### F ES, PRO, TSHR, ADIFF, CBC, GFR, FOL, MG, LIP, B12, ANEU, FERR, TROPHS, CMP, MORPH #### [address] [address] Chlam Source Cervix Normal [facility] Comment on above: Performed By: #### F ES, PRO, TSHR, ADIFF, CBC, GFR, FOL, MG, LIP, B12, ANEU, FERR, TROPHS, CMP, MORPH #### [address] [address] LABORATORYOrdered By: SYSTEM SYSTEM on 05-12-2024 Basophils (Bld) [#/Vol] 0.1 103/mcL Normal 0.0 - 0.3 10^3/mcL Workflow SS Basophils/100 WBC (Bld) 1.3 % Normal 0.0 - 2.5 % AH Workflow SS Calcium [Mass/Vol] 8.8 mg/dL Normal 8.7 - 10. 4 mg/dL ADM SS Chloride [Moles/Vol] 99 mmol/L Normal 98 - 110 mEq/L ADM SS CO2 [Moles/Vol] 32 mmol/L Normal 22 - 32 mEq/L ADM SS Creatinine [Mass/Vol] 1.06 mg/dL Normal 0.50 - 1.20 mg/dL ADM SS Comment on above: Interpretive Data: T esting performed on Insurity analyzer using enzymatic creatinine methodology. Electrolyte Balance 5.0 mEq/L Normal 4.0 - 15 .0 mEq/L ADM SS Eosinophils (Bld) [#/Vol] 0.2 103/mcL Normal 0.0 - 0.7 10^3/mcL AH Workflow SS Eosinophils/100 WBC (Bld) 4.2 % Normal 0.0 - 6.0 % AH Workflow SS Erythrocyte distribution width (RBC) [Ratio] 21.9 % High 11.5 - 15.5 % AH Workflow SS GFR/1.73 sq M.predicted among blacks MDRD (S/P/Bld) [Vol rate/Area] ml/min/1.73sqm Invalid Interpretation Code Chemistry S Comment on above: Interpretive Data: GFR Population mean for , Non- Americans Ages 20-29 = 116 mL/min/1.73 sq.m. Ages 30-39 = 107 mL/min/1.73 sq.m. Ages 40-49 = 99 mL/min/1.73 sq.m. Ages 50-59 = 93 mL/min/1.73 sq.m. Ages 60-69 = 85 mL/min/1.73 sq.m. Ages 70+ = 75 mL/min/1.73 sq.m. Chronic Kidney Disease: Less than 60 mL/min/1.73 square meters End Stage Renal Disease: Less than 15 mL/min/1.73 square meters GFR/1.73 sq M.predicted among non-blacks MDRD (S/P/Bld) [Vol rate/Area] 54 ml/min/1.73sqm Invalid Interpretation Code Chemistry S Comment on above: Interpretive Data: GFR Population mean for , Non- Americans Ages 20-29 = 116 mL/min/1.73 sq.m. Ages 30-39 = 107 mL/min/1.73 sq.m. Ages 40-49 = 99 mL/min/1.73 sq.m. Ages 50-59 = 93 mL/min/1.73 sq.m. Ages 60-69 = 85 mL/min/1.73 sq.m. Ages 70+ = 75 mL/min/1.73 sq.m. Chronic Kidney Disease: Less than 60 mL/min/1.73 square meters End Stage Renal Disease: Less than 15 mL/min/1.73 square meters Glucose [Mass/Vol] 309 mg/dL High 70 - 110 mg/dL ADM SS Hematocrit (Bld) [Volume fraction] 23.6 % Low 34.0 - 46.0 % AH Workflow SS Hemoglobin (Bld) [Mass/Vol] 7.0 G/dL Low 12.0 - 16.0 G/dL AH Workflow SS Lymphocytes (Bld) [#/Vol] 0.8 103/mcL Low 0.9 - 4.3 10^3/mcL AH Workflow SS Lymphocytes/100 WBC (Bld) 21.0 % Normal 20.0 - 40.0 % AH Workflow SS Magnesium [Mass/Vol] 1.9 mg/dL Normal 1.6 - 2.4 mg/dL ADM SS MCH (RBC) [Entitic mass] 20.5 pg Low 27.0 - 33.0 pg AH Workflow SS MCHC 29.6 G/dL Low 32.0 - 36.0 G/dL AH Workflow SS MCV (RBC) [Entitic vol] 69.3 fL Low 80.0 - 99.0 fL AH Workflow SS Monocytes (Bld) [#/Vol] 0.3 103/mcL Normal 0.1 - 1.4 10^3/mcL AH Workflow SS Monocytes/100 WBC (Bld) 7.4 % Normal 2.0 - 13.0 % AH Workflow SS Neutrophils (Bld) [#/Vol] 2.6 103/mcL Normal 2.3 - 8.1 10^3/mcL AH Workflow SS Neutrophils/100 WBC (Bld) 66.1 % Normal 50.0 - 75.0 % AH Workflow SS Platelet mean volume (Bld) [Entitic vol] 8.6 fL Normal 6.6 - 10.5 fL AH Workflow SS Platelets (Bld) [#/Vol] 298 103/mcL Normal 150 - 450 10^3/mcL AH Workflow SS RBC (Bld) [#/Vol] 3.41 106/mcL Low 4.10 - 5.30 10^6/mcL AH Workflow SS Sodium [Moles/Vol] 136 mmol/L Normal 136 - 145 mEq/L AH ADM SS Urea nitrogen [Mass/Vol] 25.0 mg/dL High 8.0 - 22.0 mg/dL AH ADM SS Urea nitrogen/Creatinine [Mass ratio] 23.6 ratio High 10.0 - 22.0 ratio AH ADM SS WBC (Bld) [#/Vol] 4.0 103/mcL Low 4.5 - 10.8 10^3/mcL Workflow SS MGon 05-12-2024 Magnesium [Mass/Vol] 1.9 mg/dL Normal 1.6-2.4 [facility] Comment on above: Performed By: #### F ES, PRO, TSHR, ADIFF, CBC, GFR, FOL, MG, LIP, B12, ANEU, FERR, TROPHS, CMP, MORPH #### [address] [address] [id number] 05-12-2024 GC PCR Source Cervix Normal [facility] Comment on above: Performed By: #### F ES, PRO, TSHR, ADIFF, CBC, GFR, FOL, MG, LIP, B12, ANEU, FERR, TROPHS, CMP, MORPH #### [place] [address] N. gonorrhoeae (PCR) Negative Normal Negative [facility] Comment on above: Result Comment: John lopez (PCR) assay performed on the [employer] [id number] System. Performed By: #### F ES, PRO, TSHR, ADIFF, CBC, GFR, FOL, MG, LIP, B12, ANEU, FERR, TROPHS, CMP, MORPH #### [place] [address] N. gonorrhoeae Interp Normal See NG Interp N [facility] Comment on above: Result Comment: N. g onorrhoeae DNA not detected. Specimen is presumptive negative for N. gonorrhoeae. A negative result does not preclude Neisseria gonorrhoeae infection because results depend on adequate specimen collection, absence of inhibitors, and sufficient DNA to be detected. See NG Interp N Performed By: #### F ES, PRO, TSHR, ADIFF, CBC, GFR, FOL, MG, LIP, B12, ANEU, FERR, TROPHS, CMP, MORPH #### [place] [address] .Auto Diffon 05-11-2024 Basophil, Absolute 0.0 10 3/mcL Normal 0.0-0.3 [facility] Comment on above: Performed By: #### F ES, PRO, TSHR, ADIFF, CBC, GFR, FOL, MG, LIP, B12, ANEU, FERR, TROPHS, CMP, MORPH #### [place] [address] Basophils/100 WBC (Bld) 0.5 % Normal 0.0-2.5 [facility] Comment on above: Performed By: #### F ES, PRO, TSHR, ADIFF, CBC, GFR, FOL, MG, LIP, B12, ANEU, FERR, TROPHS, CMP, MORPH #### [place] [address] Eosinophil, Absolute 0.1 10 3/mcL Normal 0.0-0.7 [facility] Comment on above: Performed By: #### F ES, PRO, TSHR, ADIFF, CBC, GFR, FOL, MG, LIP, B12, ANEU, FERR, TROPHS, CMP, MORPH #### [address] [address] Eosinophils/100 WBC (Bld) 1.9 % Normal 0.0-6.0 [facility] Comment on above: Performed By: #### F ES, PRO, TSHR, ADIFF, CBC, GFR, FOL, MG, LIP, B12, ANEU, FERR, TROPHS, CMP, MORPH #### [address] [address] Lymphocyte, Absolute 0.5 10 3/mcL Low 0.9-4.3 [facility] Comment on above: Performed By: #### F ES, PRO, TSHR, ADIFF, CBC, GFR, FOL, MG, LIP, B12, ANEU, FERR, TROPHS, CMP, MORPH #### [address] [address] Lymphocytes/100 WBC (Bld) 10.4 % Low 20.0-40.0 [facility] Comment on above: Performed By: #### F ES, PRO, TSHR, ADIFF, CBC, GFR, FOL, MG, LIP, B12, ANEU, FERR, TROPHS, CMP, MORPH #### [address] [address] Monocyte, Absolute 0.4 10 3/mcL Normal 0.1-1.4 [facility] Comment on above: Performed By: #### F ES, PRO, TSHR, ADIFF, CBC, GFR, FOL, MG, LIP, B12, ANEU, FERR, TROPHS, CMP, MORPH #### [address] [address] Monocytes/100 WBC (Bld) 7.2 % Normal 2.0-13.0 [facility] Comment on above: Performed By: #### F ES, PRO, TSHR, ADIFF, CBC, GFR, FOL, MG, LIP, B12, ANEU, FERR, TROPHS, CMP, MORPH #### [address] [address] Neutrophils/100 WBC (Bld) 80.0 % High 50.0-75.0 [facility] Comment on above: Performed By: #### F ES, PRO, TSHR, ADIFF, CBC, GFR, FOL, MG, LIP, B12, ANEU, FERR, TROPHS, CMP, MORPH #### [address] [address] .GFRon 05-11-2024 GFR >60 [facility] Comment on above: Result Comment: GFR Population mean for , Non- Americans Ages 20-29 = 116 mL/min/1.73 sq.m. Ages 30-39 = 107 mL/min/1.73 sq.m. Ages 40-49 = 99 mL/min/1.73 sq.m. Ages 50-59 = 93 mL/min/1.73 sq.m. Ages 60-69 = 85 mL/min/1.73 sq.m. Ages 70+ = 75 mL/min/1.73 sq.m. Chronic Kidney Disease: Less than 60 mL/min/1.73 square meters End Stage Renal Disease: Less than 15 mL/min/1.73 square meters Performed By: #### F ES, PRO, TSHR, ADIFF, CBC, GFR, FOL, MG, LIP, B12, ANEU, FERR, TROPHS, CMP, MORPH #### [address] [address] GFR Non- >60 [facility] Comment on above: Result Comment: GFR Population mean for , Non- Americans Ages 20-29 = 116 mL/min/1.73 sq.m. Ages 30-39 = 107 mL/min/1.73 sq.m. Ages 40-49 = 99 mL/min/1.73 sq.m. Ages 50-59 = 93 mL/min/1.73 sq.m. Ages 60-69 = 85 mL/min/1.73 sq.m. Ages 70+ = 75 mL/min/1.73 sq.m. Chronic Kidney Disease: Less than 60 mL/min/1.73 square meters End Stage Renal Disease: Less than 15 mL/min/1.73 square meters Performed By: #### F ES, PRO, TSHR, ADIFF, CBC, GFR, FOL, MG, LIP, B12, ANEU, FERR, TROPHS, CMP, MORPH #### [address] [address] .NEUABSon 05-11-2024 Neutrophil, Absolute 4.0 10 3/mcL Normal 2.3-8.1 [facility] Comment on above: Performed By: #### F ES, PRO, TSHR, ADIFF, CBC, GFR, FOL, MG, LIP, B12, ANEU, FERR, TROPHS, CMP, MORPH #### [address] [address] BMPon 05-11-2024 BUN/Creatinine Ratio 18.9 ratio Normal 10.0-22.0 [facility] Comment on above: Performed By: #### F ES, PRO, TSHR, ADIFF, CBC, GFR, FOL, MG, LIP, B12, ANEU, FERR, TROPHS, CMP, MORPH #### [address] [address] Calcium [Mass/Vol] 8.7 mg/dL Normal 8.7-10.4 [facility] Comment on above: Performed By: #### F ES, PRO, TSHR, ADIFF, CBC, GFR, FOL, MG, LIP, B12, ANEU, FERR, TROPHS, CMP, MORPH #### [address] [address] Chloride [Moles/Vol] 100 mmol/L Normal 98-110 [facility] Comment on above: Performed By: #### F ES, PRO, TSHR, ADIFF, CBC, GFR, FOL, MG, LIP, B12, ANEU, FERR, TROPHS, CMP, MORPH #### [address] [address] CO2 [Moles/Vol] 31 mmol/L Normal 22-32 [facility] Comment on above: Performed By: #### F ES, PRO, TSHR, ADIFF, CBC, GFR, FOL, MG, LIP, B12, ANEU, FERR, TROPHS, CMP, MORPH #### [address] [address] Creatinine [Mass/Vol] 0.90 mg/dL Normal 0.50-1.20 [facility] Comment on above: Result Comment: Test ing performed on Insurity analyzer using enzymatic creatinine methodology. Performed By: #### F ES, PRO, TSHR, ADIFF, CBC, GFR, FOL, MG, LIP, B12, ANEU, FERR, TROPHS, CMP, MORPH #### [place] [id number] Electrolyte Balance 7.0 mEq/L Normal 4.0-15.0 [facility] Comment on above: Performed By: #### F ES, PRO, TSHR, ADIFF, CBC, GFR, FOL, MG, LIP, B12, ANEU, FERR, TROPHS, CMP, MORPH #### [place] [phone] Glucose [Mass/Vol] 111 mg/dL High 70-110 [facility] Comment on above: Performed By: #### F ES, PRO, TSHR, ADIFF, CBC, GFR, FOL, MG, LIP, B12, ANEU, FERR, TROPHS, CMP, MORPH #### [place] [phone] Potassium [Moles/Vol] 3.5 mmol/L Normal 3.5-5.0 [facility] Comment on above: Performed By: #### F ES, PRO, TSHR, ADIFF, CBC, GFR, FOL, MG, LIP, B12, ANEU, FERR, TROPHS, CMP, MORPH #### [place] [phone] Sodium [Moles/Vol] 138 mmol/L Normal 136-145 [facility] Comment on above: Performed By: #### F ES, PRO, TSHR, ADIFF, CBC, GFR, FOL, MG, LIP, B12, ANEU, FERR, TROPHS, CMP, MORPH #### [place] [phone] Urea nitrogen [Mass/Vol] 17.0 mg/dL Normal 8.0-22.0 [facility] Comment on above: Performed By: #### F ES, PRO, TSHR, ADIFF, CBC, GFR, FOL, MG, LIP, B12, ANEU, FERR, TROPHS, CMP, MORPH #### [place] [phone] Basic Metabolic Profile (BMP )on 05-11-2024 BUN Normal 7-18 [facility] Comment on above: Result Comment: Canc elled via OM: Order cancelled - Patient discharged Performed By: #### L 500.4050, L3410.9999, [id number] #### [facility] [address] [place], [address] BUN/CRE Normal 10-20 [facility] Comment on above: Result Comment: Canc elled via OM: Order cancelled - Patient discharged Performed By: #### L 500.4050, L3410.9999, [id number] #### [facility] [address] [place], [address] CA,Total Normal 8.5-10.1 [facility] Comment on above: Result Comment: Canc elled via OM: Order cancelled - Patient discharged Performed By: #### L 500.4050, L3410.9999, [id number] #### [facility] [address] [place], [address] CL Normal 98-107 [facility] Comment on above: Result Comment: Canc elled via OM: Order cancelled - Patient discharged Performed By: #### L 500.4050, L3410.9999, [id number] #### [facility] [address] [place], [address] CO2 Normal 21.0-32.0 [facility] Comment on above: Result Comment: Canc elled via OM: Order cancelled - Patient discharged Performed By: #### L 500.4050, L3410.9999, [id number] #### [facility] [address] [place], [address] CREAT,SERUM Normal 0.55-1.02 [facility] Comment on above: Result Comment: Canc elled via OM: Order cancelled - Patient discharged Performed By: #### L 500.4050, L3410.9999, [id number] #### [facility] [address] [place], [address] EST GFR Normal >60 [facility] Comment on above: Result Comment: Canc elled via OM: Order cancelled - Patient discharged Performed By: #### L 500.4050, L3410.9999, [id number] #### [facility] [address] [place], [address] EST GFR - AA Normal >60 [facility] Comment on above: Result Comment: Canc elled via OM: Order cancelled - Patient discharged Performed By: #### L 500.4050, L3410.9999, [id number] #### [facility] [address] [place], [address] GAP Normal 5-15 [facility] Comment on above: Result Comment: Canc elled via OM: Order cancelled - Patient discharged Performed By: #### L 500.4050, L3410.9999, [id number] #### [facility] [address] [place], [address] GLU Normal 74-106 [facility] Comment on above: Result Comment: Canc elled via OM: Order cancelled - Patient discharged Performed By: #### L 500.4050, L3410.9999, [id number] #### [facility] [address] [place], [address] Potassium Normal 3.5-5.1 [facility] Comment on above: Result Comment: Canc elled via OM: Order cancelled - Patient discharged Performed By: #### L 500.4050, L3410.9999, [id number] #### [facility] [address] [place], [address] Basic Metabolic Profile (BMP) Normal 136-145 [facility] Comment on above: Result Comment: Canc elled via OM: Order cancelled - Patient discharged Performed By: #### L 500.4050, L3410.9999, [id number] #### [facility] [place], [address] CBCon 05-11-2024 Erythrocyte distribution width (RBC) [Ratio] 21.9 % High 11.5-15.5 [facility] Comment on above: Performed By: #### F ES, PRO, TSHR, ADIFF, CBC, GFR, FOL, MG, LIP, B12, ANEU, FERR, TROPHS, CMP, MORPH #### [place] [address] Hematocrit (Bld) [Volume fraction] 22.8 % Low 34.0-46.0 [facility] Comment on above: Performed By: #### F ES, PRO, TSHR, ADIFF, CBC, GFR, FOL, MG, LIP, B12, ANEU, FERR, TROPHS, CMP, MORPH #### [place] [address] Hgb 7.0 G/dL Low 12.0-16.0 [facility] Comment on above: Performed By: #### F ES, PRO, TSHR, ADIFF, CBC, GFR, FOL, MG, LIP, B12, ANEU, FERR, TROPHS, CMP, MORPH #### [place] [address] MCH (RBC) [Entitic mass] 20.3 pg Low 27.0-33.0 [facility] Comment on above: Performed By: #### F ES, PRO, TSHR, ADIFF, CBC, GFR, FOL, MG, LIP, B12, ANEU, FERR, TROPHS, CMP, MORPH #### [place] [address] MCHC 30.5 G/dL Low 32.0-36.0 [facility] Comment on above: Performed By: #### F ES, PRO, TSHR, ADIFF, CBC, GFR, FOL, MG, LIP, B12, ANEU, FERR, TROPHS, CMP, MORPH #### [place] [phone] MCV (RBC) [Entitic vol] 66.4 fL Low 80.0-99.0 [facility] Comment on above: Performed By: #### F ES, PRO, TSHR, ADIFF, CBC, GFR, FOL, MG, LIP, B12, ANEU, FERR, TROPHS, CMP, MORPH #### [place] [address] Platelet 353 10 3/mcL Normal 150-450 [facility] Comment on above: Performed By: #### F ES, PRO, TSHR, ADIFF, CBC, GFR, FOL, MG, LIP, B12, ANEU, FERR, TROPHS, CMP, MORPH #### [place] [phone] Platelet mean volume (Bld) [Entitic vol] 8.4 fL Normal 6.6-10.5 [facility] Comment on above: Performed By: #### F ES, PRO, TSHR, ADIFF, CBC, GFR, FOL, MG, LIP, B12, ANEU, FERR, TROPHS, CMP, MORPH #### [place] [address] RBC 3.44 10 6/mcL Low 4.10-5.30 [facility] Comment on above: Performed By: #### F ES, PRO, TSHR, ADIFF, CBC, GFR, FOL, MG, LIP, B12, ANEU, FERR, TROPHS, CMP, MORPH #### [place] [phone] WBC 5.0 10 3/mcL Normal 4.5-10.8 [facility] Comment on above: Performed By: #### F ES, PRO, TSHR, ADIFF, CBC, GFR, FOL, MG, LIP, B12, ANEU, FERR, TROPHS, CMP, MORPH #### [place] [phone] CBC W/Diff, Automatedon 04-18 Absolute Neut Normal 2.0-7.7 [facility] Comment on above: Result Comment: Canc elled via OM: Order cancelled - Patient discharged Performed By: #### L 500.4050, L3410.9999, [id number] #### [facility] [address] [place], [address] HCT Normal 37-47 [facility] Comment on above: Result Comment: Canc elled via OM: Order cancelled - Patient discharged Performed By: #### L 500.4050, L3410.9999, L300.3900 #### [facility] [address] [place], [address] HGB Normal 12.0-15.0 [facility] Comment on above: Result Comment: Canc elled via OM: Order cancelled - Patient discharged Performed By: #### L 500.4050, L3410.9999, L300.3900 #### [facility] [address] [place], [address] MCH Normal 27.0-32.0 [facility] Comment on above: Result Comment: Canc elled via OM: Order cancelled - Patient discharged Performed By: #### L 500.4050, L3410.9999, L300.3900 #### [facility] [address] [place], [address] MCHC Normal 32-36 [facility] Comment on above: Result Comment: Canc elled via OM: Order cancelled - Patient discharged Performed By: #### L 500.4050, L3410.9999, L300.3900 #### [facility] [address] [place], [address] MCV Normal 81-99 [facility] Comment on above: Result Comment: Canc elled via OM: Order cancelled - Patient discharged Performed By: #### L 500.4050, L3410.9999, L300.3900 #### [facility] [address] [place], [address] NEUT% Normal 47-70 [facility] Comment on above: Result Comment: Canc elled via OM: Order cancelled - Patient discharged Performed By: #### L 500.4050, L3410.9999, L300.3900 #### [facility] [address] [place], [address] PLT Normal 150-450 [facility] Comment on above: Result Comment: Canc elled via OM: Order cancelled - Patient discharged Performed By: #### L 500.4050, L3410.9999, L300.3900 #### [facility] [address] [place], [address] RBC Normal 4.2-5.4 [facility] Comment on above: Result Comment: Canc elled via OM: Order cancelled - Patient discharged Performed By: #### L 500.4050, L3410.9999, L300.3900 #### [facility] [address] [place], [address] RDW CV Normal 11.6-14.6 [facility] Comment on above: Result Comment: Canc elled via OM: Order cancelled - Patient discharged Performed By: #### L 500.4050, L3410.9999, L300.3900 #### [facility] [address] [place], [address] RDW SD Normal 35.1-43.9 [facility] Comment on above: Result Comment: Canc elled via OM: Order cancelled - Patient discharged Performed By: #### L 500.4050, L3410.9999, L300.3900 #### [facility] [address] [place], [address] WBC Normal 4.4-11.0 [facility] Comment on above: Result Comment: Canc elled via OM: Order cancelled - Patient discharged Performed By: #### L 500.4050, L3410.9999, L300.3900 #### [facility] [address] [place], [address] LABORATORYOrdered By: Gerber Blackmon on 05-11-2024 C. trachomatis DNA JOSE G+probe Ql (Unsp spec) Negative 15 (05/11/24 10:06 PM) Normal Negative AH Auto Viro/Sero SS Comment on above: Interpretive Data: M olecular (PCR) assay performed on the [employer] Hali 4800 system. C. trachomatis DNA JOSE G+probe Ql (Unsp spec) C. trachomatis DNA not detected. Specimen is presumptive negative forC. trachomatis.A negative result does not preclude C. trachomatis infection becauseresults depend on adequate specimen collection, absence of inhibitors,and sufficient DNA to be detected. Normal See CT Interp N AH Auto Viro/Sero SS N. gonorrhoeae DNA JOSE G+probe Ql (Unsp spec) Negative 14 (05/11/24 10:06 PM) Normal Negative AH Auto Viro/Sero SS Comment on above: Interpretive Data: M olecular (PCR) assay performed on the [employer] 4800 System. N. gonorrhoeae DNA JOSE G+probe Ql (Unsp spec) N. gonorrhoeae DNA not detected. Specimen is presumptive negative forN. gonorrhoeae. A negative result does not preclude Neisseria gonorrhoeaeinfection because results depend on adequate specimen collection, absenceof inhibitors, and sufficient DNA to be detected. Normal See NG Interp N Auto Viro/Sero SS LABORATORYOrdered By: Vitaliy Stevens on 05-11-2024 Beta HCG ( test) Ql (U) HCG not detected.Very dilute urine specimens, as indicated by a low specific gravity, may not contain printing sales representative levels of hCG.If is still suspected, a first morning urine specimen should be collected 48 hours later and tested. Invalid Interpretation Code Manual Urine SS HCG Qn (U) Negative (05/11/24 8:12 PM) Normal Manual Urine SS LABORATORYOrdered By: [email or web address] on 05-11-2024 Basophils (Bld) [#/Vol] 0.0 103/mcL Normal 0.0 - 0.3 10^3/mcL AH Workflow SS Basophils/100 WBC (Bld) 0.5 % Normal 0.0 - 2.5 % AH Workflow SS Eosinophils (Bld) [#/Vol] 0.1 103/mcL Normal 0.0 - 0.7 10^3/mcL AH Workflow SS Eosinophils/100 WBC (Bld) 1.9 % Normal 0.0 - 6.0 % AH Workflow SS Erythrocyte distribution width (RBC) [Ratio] 21.9 % High 11.5 - 15.5 % AH Workflow SS Hematocrit (Bld) [Volume fraction] 22.8 % Low 34.0 - 46.0 % AH Workflow SS Hemoglobin (Bld) [Mass/Vol] 7.0 G/dL Low 12.0 - 16.0 G/dL AH Workflow SS Lymphocytes (Bld) [#/Vol] 0.5 103/mcL Low 0.9 - 4.3 10^3/mcL AH Workflow SS Lymphocytes/100 WBC (Bld) 10.4 % Low 20.0 - 40.0 % AH Workflow SS MCH (RBC) [Entitic mass] 20.3 pg Low 27.0 - 33.0 pg AH Workflow SS MCHC 30.5 G/dL Low 32.0 - 36.0 G/dL AH Workflow SS MCV (RBC) [Entitic vol] 66.4 fL Low 80.0 - 99.0 fL AH Workflow SS Monocytes (Bld) [#/Vol] 0.4 103/mcL Normal 0.1 - 1.4 10^3/mcL AH Workflow SS Monocytes/100 WBC (Bld) 7.2 % Normal 2.0 - 13.0 % AH Workflow SS Neutrophils (Bld) [#/Vol] 4.0 103/mcL Normal 2.3 - 8.1 10^3/mcL AH Workflow SS Neutrophils/100 WBC (Bld) 80.0 % High 50.0 - 75.0 % AH Workflow SS Platelet mean volume (Bld) [Entitic vol] 8.4 fL Normal 6.6 - 10.5 fL AH Workflow SS Platelets (Bld) [#/Vol] 353 103/mcL Normal 150 - 450 10^3/mcL AH Workflow SS RBC (Bld) [#/Vol] 3.44 106/mcL Low 4.10 - 5.30 10^6/mcL AH Workflow SS WBC (Bld) [#/Vol] 5.0 103/mcL Normal 4.5 - 10.8 10^3/mcL AH Workflow SS LABORATORYOrdered By: Luis Storey on 05-11-2024 Appearance (U) Clear (05/11/24 5:39 AM) Normal Clear Auto Urine SS Bilirubin Ql (U) Negative (05/11/24 5:39 AM) Normal Neg-Trace Auto Urine SS Color (U) Yellow (05/11/24 5:39 AM) Normal AH Auto Urine SS Glucose Test strip (U) [Mass/Vol] Negative Normal Negative AH Auto Urine SS Hemoglobin Auto test strip (U) [Mass/Vol] Negative (05/11/24 5:39 AM) Normal Neg-Trace AH Auto Urine SS Ketones Ql (U) Negative Normal Neg-Trace AH Auto Urine SS UA Leuk Est Negative (05/11/24 5:39 AM) Normal Negative AH Auto Urine SS UA Nitrite Negative (05/11/24 5:39 AM) Normal Negative AH Auto Urine SS UA pH 6.0 (05/11/24 5:39 AM) Normal 5.0 - 8.0 AH Auto Urine SS UA Protein Negative Normal Negative AH Auto Urine SS UA Spec Grav <=1.005 *ABN* (05/11/24 5:39 AM) Invalid Interpretation Code 1.006-1.02 9 AH Auto Urine SS UA Specimen Type Void (05/11/24 5:39 AM) Normal Auto Urine SS UA Urobilinogen 0.2 E.U./dL Normal 0.2-1.0 AH Auto Urine SS Laboratory - Specimen inform ationOrdered By: Gerber Blackmon on 05-11-2024 Specimen source Nom (Unsp spec) Cervix (05/11/24 10:06 PM) Normal Auto Viro/Sero SS MGon 05-11-2024 Magnesium [Mass/Vol] 1.8 mg/dL Normal 1.6-2.4 [facility] Comment on above: Performed By: #### F ES, PRO, TSHR, ADIFF, CBC, GFR, FOL, MG, LIP, B12, ANEU, FERR, TROPHS, CMP, MORPH #### [address] [address] PREGUon 05-11-2024 HCG ( test) Ql (U) Negative Normal [facility] Comment on above: Performed By: #### F ES, PRO, TSHR, ADIFF, CBC, GFR, FOL, MG, LIP, B12, ANEU, FERR, TROPHS, CMP, MORPH #### [address] [address] test (u) int Invalid Interpretation Code [facility] Comment on above: Result Comment: HCG not detected. Very dilute urine specimens, as indicated by a low specific gravity, may not contain printing sales representative levels of hCG. If is still suspected, a first morning urine specimen should be collected 48 hours later and tested. Performed By: #### F ES, PRO, TSHR, ADIFF, CBC, GFR, FOL, MG, LIP, B12, ANEU, FERR, TROPHS, CMP, MORPH #### [place] [address] UAon 05-11-2024 Color (U) Yellow Normal [facility] Comment on above: Performed By: #### F ES, PRO, TSHR, ADIFF, CBC, GFR, FOL, MG, LIP, B12, ANEU, FERR, TROPHS, CMP, MORPH #### [place] [address] Glucose (U) [Mass/Vol] Negative Normal Negative [facility] Comment on above: Performed By: #### F ES, PRO, TSHR, ADIFF, CBC, GFR, FOL, MG, LIP, B12, ANEU, FERR, TROPHS, CMP, MORPH #### [place] [address] Ketones Ql (U) Negative Normal Neg-Trace [facility] Comment on above: Performed By: #### F ES, PRO, TSHR, ADIFF, CBC, GFR, FOL, MG, LIP, B12, ANEU, FERR, TROPHS, CMP, MORPH #### [place] [address] UA Appear Clear Normal Clear [facility] Comment on above: Performed By: #### F ES, PRO, TSHR, ADIFF, CBC, GFR, FOL, MG, LIP, B12, ANEU, FERR, TROPHS, CMP, MORPH #### [place] [address] UA Blood Negative Normal Neg-Trace [facility] Comment on above: Performed By: #### F ES, PRO, TSHR, ADIFF, CBC, GFR, FOL, MG, LIP, B12, ANEU, FERR, TROPHS, CMP, MORPH #### [place] [phone] UA Leuk Est Negative Normal Negative [facility] Comment on above: Performed By: #### F ES, PRO, TSHR, ADIFF, CBC, GFR, FOL, MG, LIP, B12, ANEU, FERR, TROPHS, CMP, MORPH #### [address] [address] UA Nitrite Negative Normal Negative [facility] Comment on above: Performed By: #### F ES, PRO, TSHR, ADIFF, CBC, GFR, FOL, MG, LIP, B12, ANEU, FERR, TROPHS, CMP, MORPH #### [place] [address] UA pH 6.0 Normal 5.0 - 8.0 [facility] Comment on above: Performed By: #### F ES, PRO, TSHR, ADIFF, CBC, GFR, FOL, MG, LIP, B12, ANEU, FERR, TROPHS, CMP, MORPH #### [place] [address] UA Protein Negative Normal Negative [facility] Comment on above: Performed By: #### F ES, PRO, TSHR, ADIFF, CBC, GFR, FOL, MG, LIP, B12, ANEU, FERR, TROPHS, CMP, MORPH #### [place] [address] UA Spec Grav <=1.005 Abnormal 1.006-1.[address] [place] [address] MAIN Comment on above: Performed By: #### F ES, PRO, TSHR, ADIFF, CBC, GFR, FOL, MG, LIP, B12, ANEU, FERR, TROPHS, CMP, MORPH #### [place] [address] UA Specimen Type Void Normal [facility] Comment on above: Performed By: #### F ES, PRO, TSHR, ADIFF, CBC, GFR, FOL, MG, LIP, B12, ANEU, FERR, TROPHS, CMP, MORPH #### [place] [address] UA Urobilinogen 0.2 E.U./dL Normal 0.2-1.0 [facility] Comment on above: Performed By: #### F ES, PRO, TSHR, ADIFF, CBC, GFR, FOL, MG, LIP, B12, ANEU, FERR, TROPHS, CMP, MORPH #### [facility] [address] [place] [address] Urobilinogen (U) [Mass/Vol] Negative Normal Neg-Trace [facility] Comment on above: Performed By: #### F ES, PRO, TSHR, ADIFF, CBC, GFR, FOL, MG, LIP, B12, ANEU, FERR, TROPHS, CMP, MORPH #### [facility] [address] [place] [address] US PELVIS NON-OB W/TRANSVAGI NALon 05-11-2024 US PELVIS NON-OB W/TRANSVAGINAL ORIGINAL EXAMINATION: Transabdominal and TRANSVAGINAL PELVIC ULTRASOUND 05/11/2024 TECHNIQUE: Transabdominal and transvaginal pelvic ultrasound was performed. COMPARISON: None HISTORY: ORDERING SYSTEM PROVIDED HISTORY: Reason for Exam: Menorrhagia FINDINGS: Measurements: Uterus: 9.3 x 5.3 x 5.7 cm Endometrial stripe: 0.6 cm Right Ovary:3.5 x 2.0 x 1.8 cm Left Ovary: Not visualized due to overlying bowel gas Ultrasound Findings: Uterus: Uterus demonstrates normal myometrial echotexture. Endometrial stripe: Suggested a few tiny endometrial cysts and/or calcifications at the fundus. 0.6 cm cyst-like structure at the fundus. Right Ovary: Right ovary is within normal limits. Left Ovary: Left ovary is within normal limits. Free Fluid: No evidence of free fluid. IMPRESSION: No acute findings. Interpreted by: Polo Estrada Preliminary Report By: Polo Estrada Electronically signed By Polo Estrada Dictated Date: 05/11/2024 4:36:31 PM Prelim Date: 05/11/2024 4:41:07 PM Sign Date: 05/11/2024 4:41:07 PM Ordering Provider: GEO ZAMBRANO Normal [facility] .Auto Diffon 05-10-2024 Basophil, Absolute 0.2 10 3/mcL Normal 0.0-0.3 [facility] Comment on above: Performed By: #### F ES, PRO, TSHR, ADIFF, CBC, GFR, FOL, MG, LIP, B12, ANEU, FERR, TROPHS, CMP, MORPH #### [address] [address] Basophils/100 WBC (Bld) 2.8 % High 0.0-2.5 [facility] Comment on above: Performed By: #### F ES, PRO, TSHR, ADIFF, CBC, GFR, FOL, MG, LIP, B12, ANEU, FERR, TROPHS, CMP, MORPH #### [address] [address] Eosinophil, Absolute 0.2 10 3/mcL Normal 0.0-0.7 [facility] Comment on above: Performed By: #### F ES, PRO, TSHR, ADIFF, CBC, GFR, FOL, MG, LIP, B12, ANEU, FERR, TROPHS, CMP, MORPH #### [address] [address] Eosinophils/100 WBC (Bld) 2.9 % Normal 0.0-6.0 [facility] Comment on above: Performed By: #### F ES, PRO, TSHR, ADIFF, CBC, GFR, FOL, MG, LIP, B12, ANEU, FERR, TROPHS, CMP, MORPH #### [address] [address] Lymphocyte, Absolute 1.2 10 3/mcL Normal 0.9-4.3 [facility] Comment on above: Performed By: #### F ES, PRO, TSHR, ADIFF, CBC, GFR, FOL, MG, LIP, B12, ANEU, FERR, TROPHS, CMP, MORPH #### [address] [address] Lymphocytes/100 WBC (Bld) 21.1 % Normal 20.0-40.0 [facility] Comment on above: Performed By: #### F ES, PRO, TSHR, ADIFF, CBC, GFR, FOL, MG, LIP, B12, ANEU, FERR, TROPHS, CMP, MORPH #### [address] [address] Monocyte, Absolute 0.4 10 3/mcL Normal 0.1-1.4 [facility] Comment on above: Performed By: #### F ES, PRO, TSHR, ADIFF, CBC, GFR, FOL, MG, LIP, B12, ANEU, FERR, TROPHS, CMP, MORPH #### [address] [address] Monocytes/100 WBC (Bld) 7.5 % Normal 2.0-13.0 [facility] Comment on above: Performed By: #### F ES, PRO, TSHR, ADIFF, CBC, GFR, FOL, MG, LIP, B12, ANEU, FERR, TROPHS, CMP, MORPH #### [address] [address] Neutrophils/100 WBC (Bld) 65.7 % Normal 50.0-75.0 [facility] Comment on above: Performed By: #### F ES, PRO, TSHR, ADIFF, CBC, GFR, FOL, MG, LIP, B12, ANEU, FERR, TROPHS, CMP, MORPH #### [address] [address] .GFRon 05-10-2024 GFR >60 [facility] Comment on above: Result Comment: GFR Population mean for , Non- Americans Ages 20-29 = 116 mL/min/1.73 sq.m. Ages 30-39 = 107 mL/min/1.73 sq.m. Ages 40-49 = 99 mL/min/1.73 sq.m. Ages 50-59 = 93 mL/min/1.73 sq.m. Ages 60-69 = 85 mL/min/1.73 sq.m. Ages 70+ = 75 mL/min/1.73 sq.m. Chronic Kidney Disease: Less than 60 mL/min/1.73 square meters End Stage Renal Disease: Less than 15 mL/min/1.73 square meters Performed By: #### F ES, PRO, TSHR, ADIFF, CBC, GFR, FOL, MG, LIP, B12, ANEU, FERR, TROPHS, CMP, MORPH #### [address] [address] GFR Non- >60 [facility] Comment on above: Result Comment: GFR Population mean for , Non- Americans Ages 20-29 = 116 mL/min/1.73 sq.m. Ages 30-39 = 107 mL/min/1.73 sq.m. Ages 40-49 = 99 mL/min/1.73 sq.m. Ages 50-59 = 93 mL/min/1.73 sq.m. Ages 60-69 = 85 mL/min/1.73 sq.m. Ages 70+ = 75 mL/min/1.73 sq.m. Chronic Kidney Disease: Less than 60 mL/min/1.73 square meters End Stage Renal Disease: Less than 15 mL/min/1.73 square meters Performed By: #### F ES, PRO, TSHR, ADIFF, CBC, GFR, FOL, MG, LIP, B12, ANEU, FERR, TROPHS, CMP, MORPH #### [place] [address] .Morphon 05-10-2024 Anisocytosis Ql (Bld) 2+ [facility] Comment on above: Performed By: #### F ES, PRO, TSHR, ADIFF, CBC, GFR, FOL, MG, LIP, B12, ANEU, FERR, TROPHS, CMP, MORPH #### [place] [address] Microcytosis 3+ [facility] Comment on above: Performed By: #### F ES, PRO, TSHR, ADIFF, CBC, GFR, FOL, MG, LIP, B12, ANEU, FERR, TROPHS, CMP, MORPH #### [place] [address] Ovalocytes 1+ [facility] Comment on above: Performed By: #### F ES, PRO, TSHR, ADIFF, CBC, GFR, FOL, MG, LIP, B12, ANEU, FERR, TROPHS, CMP, MORPH #### [place] [address] Platelet Estimate Normal [facility] Comment on above: Performed By: #### F ES, PRO, TSHR, ADIFF, CBC, GFR, FOL, MG, LIP, B12, ANEU, FERR, TROPHS, CMP, MORPH #### [place] [address] Poik 1+ [facility] Comment on above: Performed By: #### F ES, PRO, TSHR, ADIFF, CBC, GFR, FOL, MG, LIP, B12, ANEU, FERR, TROPHS, CMP, MORPH #### [address] [address] Polychrom 1+ Normal [facility] Comment on above: Performed By: #### F ES, PRO, TSHR, ADIFF, CBC, GFR, FOL, MG, LIP, B12, ANEU, FERR, TROPHS, CMP, MORPH #### [facility] [address] [place] [address] .NEUABSon 05-10-2024 Neutrophil, Absolute 3.7 10 3/mcL Normal 2.3-8.1 [facility] Comment on above: Performed By: #### F ES, PRO, TSHR, ADIFF, CBC, GFR, FOL, MG, LIP, B12, ANEU, FERR, TROPHS, CMP, MORPH #### [address] [address] B12on 05-10-2024 Vitamin B12 Lvl >2000 High 211-911 [facility] Comment on above: Performed By: #### F ES, PRO, TSHR, ADIFF, CBC, GFR, FOL, MG, LIP, B12, ANEU, FERR, TROPHS, CMP, MORPH #### [address] [address] Basic Metabolic Profile (BMP )on 05-10-2024 BUN Normal 7-18 [facility] Comment on above: Result Comment: Canc elled via OM: Order cancelled - Patient discharged Performed By: #### L 500.2500, L100.0100 #### [facility] [address] [place], [address] BUN/CRE Normal 10-20 [facility] Comment on above: Result Comment: Canc elled via OM: Order cancelled - Patient discharged Performed By: #### L 500.2500, L100.0100 #### [facility] [address] [place], [address] CA,Total Normal 8.5-10.1 [facility] Comment on above: Result Comment: Canc elled via OM: Order cancelled - Patient discharged Performed By: #### L 500.2500, L100.0100 #### [facility] [address] [place], [address] CL Normal 98-107 [facility] Comment on above: Result Comment: Canc elled via OM: Order cancelled - Patient discharged Performed By: #### L 500.2500, L100.0100 #### [facility] [address] [place], [address] CO2 Normal 21.0-32.0 [facility] Comment on above: Result Comment: Canc elled via OM: Order cancelled - Patient discharged Performed By: #### L 500.2500, L100.0100 #### [facility] [address] [place], [address] CREAT,SERUM Normal 0.55-1.02 [facility] Comment on above: Result Comment: Canc elled via OM: Order cancelled - Patient discharged Performed By: #### L 500.2500, L100.0100 #### [facility] [address] [place], [address] EST GFR Normal >60 [facility] Comment on above: Result Comment: Canc elled via OM: Order cancelled - Patient discharged Performed By: #### L 500.2500, L100.0100 #### [facility] [address] [place], [address] EST GFR - AA Normal >60 [facility] Comment on above: Result Comment: Canc elled via OM: Order cancelled - Patient discharged Performed By: #### L 500.2500, L100.0100 #### [facility] [address] [place], [address] GAP Normal 5-15 [facility] Comment on above: Result Comment: Canc elled via OM: Order cancelled - Patient discharged Performed By: #### L 500.2500, L100.0100 #### [facility] [address] [place], [address] GLU Normal 74-106 [facility] Comment on above: Result Comment: Canc elled via OM: Order cancelled - Patient discharged Performed By: #### L 500.2500, L100.0100 #### [facility] [address] [place], [address] Potassium Normal 3.5-5.1 [facility] Comment on above: Result Comment: Canc elled via OM: Order cancelled - Patient discharged Performed By: #### L 500.2500, L100.0100 #### [facility] [address] [place], [address] Basic Metabolic Profile (BMP) Normal 136-145 [facility] Comment on above: Result Comment: Canc elled via OM: Order cancelled - Patient discharged Performed By: #### L 500.2500, L100.0100 #### [facility] [address] [place], [address] CBCon 05-10-2024 Erythrocyte distribution width (RBC) [Ratio] 22.1 % High 11.5-15.5 [facility] Comment on above: Performed By: #### F ES, PRO, TSHR, ADIFF, CBC, GFR, FOL, MG, LIP, B12, ANEU, FERR, TROPHS, CMP, MORPH #### [address] [address] Hematocrit (Bld) [Volume fraction] 19.9 % Low 34.0-46.0 [facility] Comment on above: Performed By: #### F ES, PRO, TSHR, ADIFF, CBC, GFR, FOL, MG, LIP, B12, ANEU, FERR, TROPHS, CMP, MORPH #### [address] [address] Hgb 6.1 G/dL Critically abnormal 12.0-16.0 [facility] Comment on above: Performed By: #### F ES, PRO, TSHR, ADIFF, CBC, GFR, FOL, MG, LIP, B12, ANEU, FERR, TROPHS, CMP, MORPH #### [place] [address] MCH (RBC) [Entitic mass] 20.1 pg Low 27.0-33.0 [facility] Comment on above: Performed By: #### F ES, PRO, TSHR, ADIFF, CBC, GFR, FOL, MG, LIP, B12, ANEU, FERR, TROPHS, CMP, MORPH #### [place] [address] MCHC 30.6 G/dL Low 32.0-36.0 [facility] Comment on above: Performed By: #### F ES, PRO, TSHR, ADIFF, CBC, GFR, FOL, MG, LIP, B12, ANEU, FERR, TROPHS, CMP, MORPH #### [place] [address] MCV (RBC) [Entitic vol] 65.5 fL Low 80.0-99.0 [facility] Comment on above: Performed By: #### F ES, PRO, TSHR, ADIFF, CBC, GFR, FOL, MG, LIP, B12, ANEU, FERR, TROPHS, CMP, MORPH #### [place] [address] Platelet 333 10 3/mcL Normal 150-450 [facility] Comment on above: Performed By: #### F ES, PRO, TSHR, ADIFF, CBC, GFR, FOL, MG, LIP, B12, ANEU, FERR, TROPHS, CMP, MORPH #### [place] [address] Platelet mean volume (Bld) [Entitic vol] 8.2 fL Normal 6.6-10.5 [facility] Comment on above: Performed By: #### F ES, PRO, TSHR, ADIFF, CBC, GFR, FOL, MG, LIP, B12, ANEU, FERR, TROPHS, CMP, MORPH #### [place] [address] RBC 3.04 10 6/mcL Low 4.10-5.30 [facility] Comment on above: Performed By: #### F ES, PRO, TSHR, ADIFF, CBC, GFR, FOL, MG, LIP, B12, ANEU, FERR, TROPHS, CMP, MORPH #### [facility] [address] [place] [address] WBC 5.5 10 3/mcL Normal 4.5-10.8 [facility] Comment on above: Performed By: #### F ES, PRO, TSHR, ADIFF, CBC, GFR, FOL, MG, LIP, B12, ANEU, FERR, TROPHS, CMP, MORPH #### [facility] [address] [place] [address] CBC W/Diff, Automatedon 04-18 Absolute Neut Normal 2.0-7.7 [facility] Comment on above: Result Comment: Canc elled via OM: Order cancelled - Patient discharged Performed By: #### L 500.2500, L100.0100 #### [facility] [address] [place], [address] HCT Normal 37-47 [facility] Comment on above: Result Comment: Canc elled via OM: Order cancelled - Patient discharged Performed By: #### L 500.2500, L100.0100 #### [facility] [address] [place], [address] HGB Normal 12.0-15.0 [facility] Comment on above: Result Comment: Canc elled via OM: Order cancelled - Patient discharged Performed By: #### L 500.2500, L100.0100 #### [facility] [address] [place], [address] MCH Normal 27.0-32.0 [facility] Comment on above: Result Comment: Canc elled via OM: Order cancelled - Patient discharged Performed By: #### L 500.2500, L100.0100 #### [facility] [address] [place], [address] MCHC Normal 32-36 [facility] Comment on above: Result Comment: Canc elled via OM: Order cancelled - Patient discharged Performed By: #### L 500.2500, L100.0100 #### [facility] [address] [place], [address] MCV Normal 81-99 [facility] Comment on above: Result Comment: Canc elled via OM: Order cancelled - Patient discharged Performed By: #### L 500.2500, L100.0100 #### [facility] [address] [place], [address] NEUT% Normal 47-70 [facility] Comment on above: Result Comment: Canc elled via OM: Order cancelled - Patient discharged Performed By: #### L 500.2500, L100.0100 #### [facility] [address] [place], [address] PLT Normal 150-450 [facility] Comment on above: Result Comment: Canc elled via OM: Order cancelled - Patient discharged Performed By: #### L 500.2500, L100.0100 #### [facility] [address] [place], [address] RBC Normal 4.2-5.4 [facility] Comment on above: Result Comment: Canc elled via OM: Order cancelled - Patient discharged Performed By: #### L 500.2500, L100.0100 #### [facility] [address] [place], [address] RDW CV Normal 11.6-14.6 [facility] Comment on above: Result Comment: Canc elled via OM: Order cancelled - Patient discharged Performed By: #### L 500.2500, L100.0100 #### [facility] [address] [place], [address] RDW SD Normal 35.1-43.9 [facility] Comment on above: Result Comment: Canc elled via OM: Order cancelled - Patient discharged Performed By: #### L 500.2500, L100.0100 #### [facility] [address] [place], [address] WBC Normal 4.4-11.0 [facility] Comment on above: Result Comment: Canc elled via OM: Order cancelled - Patient discharged Performed By: #### L 500.2500, L100.0100 #### [facility] [address] [place], [address] CMPon 05-10-2024 Albumin Level 2.3 G/dL Low 3.2-4.8 [facility] Comment on above: Performed By: #### F ES, PRO, TSHR, ADIFF, CBC, GFR, FOL, MG, LIP, B12, ANEU, FERR, TROPHS, CMP, MORPH #### [address] [address] Albumin/Globulin [Mass ratio] 0.7 {ratio} Low 0.9-1.6 [facility] Comment on above: Performed By: #### F ES, PRO, TSHR, ADIFF, CBC, GFR, FOL, MG, LIP, B12, ANEU, FERR, TROPHS, CMP, MORPH #### [address] [address] ALP [Catalytic activity/Vol] 114 U/L Normal 38-126 [facility] Comment on above: Performed By: #### F ES, PRO, TSHR, ADIFF, CBC, GFR, FOL, MG, LIP, B12, ANEU, FERR, TROPHS, CMP, MORPH #### [address] [address] ALT [Catalytic activity/Vol] 71 U/L High 10-49 [facility] Comment on above: Performed By: #### F ES, PRO, TSHR, ADIFF, CBC, GFR, FOL, MG, LIP, B12, ANEU, FERR, TROPHS, CMP, MORPH #### [address] [address] AST [Catalytic activity/Vol] 62 U/L High 8-34 [facility] Comment on above: Performed By: #### F ES, PRO, TSHR, ADIFF, CBC, GFR, FOL, MG, LIP, B12, ANEU, FERR, TROPHS, CMP, MORPH #### [address] [address] Bili Total 0.40 mg/dL Normal 0.20-1.20 [facility] Comment on above: Result Comment: Use of this assay is not recommended for patients undergoing treatment with eltrombopag due to the potential for falsely elevated results. Performed By: #### F ES, PRO, TSHR, ADIFF, CBC, GFR, FOL, MG, LIP, B12, ANEU, FERR, TROPHS, CMP, MORPH #### [place] [id number] BUN/Creatinine Ratio 15.7 ratio Normal 10.0-22.0 [facility] Comment on above: Performed By: #### F ES, PRO, TSHR, ADIFF, CBC, GFR, FOL, MG, LIP, B12, ANEU, FERR, TROPHS, CMP, MORPH #### [address] [address] Calcium [Mass/Vol] 8.8 mg/dL Normal 8.7-10.4 [facility] Comment on above: Performed By: #### F ES, PRO, TSHR, ADIFF, CBC, GFR, FOL, MG, LIP, B12, ANEU, FERR, TROPHS, CMP, MORPH #### [address] [address] Chloride [Moles/Vol] 104 mmol/L Normal 98-110 [facility] Comment on above: Performed By: #### F ES, PRO, TSHR, ADIFF, CBC, GFR, FOL, MG, LIP, B12, ANEU, FERR, TROPHS, CMP, MORPH #### [address] [address] CO2 [Moles/Vol] 29 mmol/L Normal 22-32 [facility] Comment on above: Performed By: #### F ES, PRO, TSHR, ADIFF, CBC, GFR, FOL, MG, LIP, B12, ANEU, FERR, TROPHS, CMP, MORPH #### [address] [address] Creatinine [Mass/Vol] 0.70 mg/dL Normal 0.50-1.20 [facility] Comment on above: Result Comment: Test ing performed on Insurity analyzer using enzymatic creatinine methodology. Performed By: #### F ES, PRO, TSHR, ADIFF, CBC, GFR, FOL, MG, LIP, B12, ANEU, FERR, TROPHS, CMP, MORPH #### [place] [address] Electrolyte Balance 2.0 mEq/L Low 4.0-15.0 [facility] Comment on above: Performed By: #### F ES, PRO, TSHR, ADIFF, CBC, GFR, FOL, MG, LIP, B12, ANEU, FERR, TROPHS, CMP, MORPH #### [address] [address] Globulin 3.5 G/dL Normal 1.5-3.8 [facility] Comment on above: Performed By: #### F ES, PRO, TSHR, ADIFF, CBC, GFR, FOL, MG, LIP, B12, ANEU, FERR, TROPHS, CMP, MORPH #### [place] [id number] Glucose [Mass/Vol] 223 mg/dL High 70-110 [facility] Comment on above: Performed By: #### F ES, PRO, TSHR, ADIFF, CBC, GFR, FOL, MG, LIP, B12, ANEU, FERR, TROPHS, CMP, MORPH #### [address] [address] Potassium [Moles/Vol] 4.2 mmol/L Normal 3.5-5.0 [facility] Comment on above: Performed By: #### F ES, PRO, TSHR, ADIFF, CBC, GFR, FOL, MG, LIP, B12, ANEU, FERR, TROPHS, CMP, MORPH #### [address] [address] Sodium [Moles/Vol] 135 mmol/L Low 136-145 [facility] Comment on above: Performed By: #### F ES, PRO, TSHR, ADIFF, CBC, GFR, FOL, MG, LIP, B12, ANEU, FERR, TROPHS, CMP, MORPH #### [place] [id number] Total Protein 5.8 G/dL Normal 5.7-8.2 [facility] Comment on above: Performed By: #### F ES, PRO, TSHR, ADIFF, CBC, GFR, FOL, MG, LIP, B12, ANEU, FERR, TROPHS, CMP, MORPH #### [place] [address] Urea nitrogen [Mass/Vol] 11.0 mg/dL Normal 8.0-22.0 [facility] Comment on above: Performed By: #### F ES, PRO, TSHR, ADIFF, CBC, GFR, FOL, MG, LIP, B12, ANEU, FERR, TROPHS, CMP, MORPH #### [address] [address] Fidelia 05-10-2024 Ferritin [Mass/Vol] 257.6 ng/mL High 8.0-252.0 [facility] Comment on above: Performed By: #### F ES, PRO, TSHR, ADIFF, CBC, GFR, FOL, MG, LIP, B12, ANEU, FERR, TROPHS, CMP, MORPH #### [address] [address] FESon 05-10-2024 Iron [Mass/Vol] 43 ug/dL Low 50-170 [facility] Comment on above: Performed By: #### F ES, PRO, TSHR, ADIFF, CBC, GFR, FOL, MG, LIP, B12, ANEU, FERR, TROPHS, CMP, MORPH #### [place] [phone] Iron Sat 12 % Normal [facility] Comment on above: Performed By: #### F ES, PRO, TSHR, ADIFF, CBC, GFR, FOL, MG, LIP, B12, ANEU, FERR, TROPHS, CMP, MORPH #### [place] [phone] TIBC 363 mcg/dL Normal 250-500 [facility] Comment on above: Performed By: #### F ES, PRO, TSHR, ADIFF, CBC, GFR, FOL, MG, LIP, B12, ANEU, FERR, TROPHS, CMP, MORPH #### [address] [address] FOLon 05-10-2024 Folate 12.92 ng/mL Normal 5.38-24.00 [facility] Comment on above: Performed By: #### F ES, PRO, TSHR, ADIFF, CBC, GFR, FOL, MG, LIP, B12, ANEU, FERR, TROPHS, CMP, MORPH #### [address] [address] LABORATORYOrdered By: SYSTEM SYSTEM on 05-10-2024 Albumin BCP dye [Mass/Vol] 2.3 G/dL Low 3.2 - 4.8 G/dL ADM SS Albumin/Globulin [Mass ratio] 0.7 {ratio} Low 0.9 - 1.6 ratio ADM SS ALP [Catalytic activity/Vol] 114 U/L Normal 38 - 126 U/L ADM SS ALT No additional P-5'-P [Catalytic activity/Vol] 71 U/L High 10 - 49 U/L ADM SS Anisocytosis Ql (Bld) 2+ *NA* (05/10/24 6:11 AM) Invalid Interpretation Code Workflow SS AST [Catalytic activity/Vol] 62 U/L High 8 - 34 U/L ADM SS Basophils (Bld) [#/Vol] 0.2 103/mcL Normal 0.0 - 0.3 10^3/mcL Workflow SS Basophils/100 WBC (Bld) 2.8 % High 0.0 - 2.5 % Workflow SS Bilirubin [Mass/Vol] 0.40 mg/dL Normal 0.20 - 1.20 mg/dL AH ADM SS Comment on above: Interpretive Data: U se of this assay is not recommended for patients undergoing treatment with eltrombopag due to the potential for falsely elevated results. Cobalamin (Vitamin B12) [Mass/Vol] pg/mL High 211 - 911 pg/mL AH ADM SS Eosinophils (Bld) [#/Vol] 0.2 103/mcL Normal 0.0 - 0.7 10^3/mcL Workflow SS Eosinophils/100 WBC (Bld) 2.9 % Normal 0.0 - 6.0 % AH Workflow SS Erythrocyte distribution width (RBC) [Ratio] 22.1 % High 11.5 - 15.5 % AH Workflow SS Ferritin [Mass/Vol] 257.6 ng/mL High 8.0 - 252.0 ng/mL AH ADM SS Folate [Mass/Vol] 12.92 ng/mL Normal 5.38 - 24.00 ng/mL AH ADM SS Globulin 3.5 G/dL Normal 1.5 - 3.8 G/dL AH ADM SS Iron [Mass/Vol] 43 ug/dL Low 50 - 170 mcg/dL AH ADM SS Iron binding capacity [Mass/Vol] 363 mcg/dL Normal 250 - 500 mcg/dL AH ADM SS Iron saturation [Mass fraction] 12 % Invalid Interpretation Code AH ADM SS Lipase [Catalytic activity/Vol] 31 U/L Normal 12 - 53 U/L ADM SS Comment on above: Interpretive Data: * *Note - New Reference Range in effect 19 Lymphocytes (Bld) [#/Vol] 1.2 103/mcL Normal 0.9 - 4.3 10^3/mcL AH Workflow SS Lymphocytes/100 WBC (Bld) 21.1 % Normal 20.0 - 40.0 % AH Workflow SS MCH (RBC) [Entitic mass] 20.1 pg Low 27.0 - 33.0 pg AH Workflow SS MCHC 30.6 G/dL Low 32.0 - 36.0 G/dL AH Workflow SS MCV (RBC) [Entitic vol] 65.5 fL Low 80.0 - 99.0 fL AH Workflow SS Microcytes Ql (Bld) 3+ *NA* (05/10/24 6:11 AM) Invalid Interpretation Code Workflow SS Monocytes (Bld) [#/Vol] 0.4 103/mcL Normal 0.1 - 1.4 10^3/mcL AH Workflow SS Monocytes/100 WBC (Bld) 7.5 % Normal 2.0 - 13.0 % AH Workflow SS Neutrophils (Bld) [#/Vol] 3.7 103/mcL Normal 2.3 - 8.1 10^3/mcL AH Workflow SS Neutrophils/100 WBC (Bld) 65.7 % Normal 50.0 - 75.0 % AH Workflow SS Ovalocytes LM Ql (Bld) 1+ *NA* (05/10/24 6:11 AM) Invalid Interpretation Code Workflow SS Platelet mean volume (Bld) [Entitic vol] 8.2 fL Normal 6.6 - 10.5 fL Workflow SS Platelets (Bld) [#/Vol] 333 103/mcL Normal 150 - 450 10^3/mcL Workflow SS Platelets LM Ql (Bld) Normal *NA* (05/10/24 6:11 AM) Invalid Interpretation Code Workflow SS Poikilocytosis LM Ql (Bld) 1+ *NA* (05/10/24 6:11 AM) Invalid Interpretation Code Workflow SS Polychromasia LM Ql (Bld) 1+ *NA* (05/10/24 6:11 AM) Invalid Interpretation Code Workflow SS Protein [Mass/Vol] 5.8 G/dL Normal 5.7 - 8.2 G/dL ADM PT Coag (PPP) [Time] 11.8 s Normal 9.0 - 14.4 seconds [facility] Comment on above: Interpretive Data: E ffective 10/30/07, Protime results may be affected by some antibiotics (i.e. Ciprofloxacin, Azithromycin, Bactrim) which may potentiate the action of oral anticoagulants, with further increases in Protime/INR. PT International Ratio 1.0 ratio Invalid Interpretation Code [facility] Comment on above: Interpretive Data: Ronit ponce [employer] (CHEST, 1992, 102:312S-25S) recommended therapeutic range for oral anticoagulant therapy is: LOW RISK: Prophylaxis of venous thrombosis INR: 2.0-3.0 Treatment of pulmonary embolism 2.0-3.0 Prevention of systemic embolism 2.0-3.0 HIGH RISK: Mechanical prosthetic valves 2.5-3.5 RBC (Bld) [#/Vol] 3.04 106/mcL Low 4.10 - 5.30 10^6/mcL Workflow SS Troponin I.cardiac DL <= 0.01 ng/mL [Mass/Vol] 24 ng/L Normal 0 - 34 ng/L ADM Comment on above: Interpretive Data: High Sensitive Troponin I Reference Ranges: Female: 0-34 ng/L Male: 0-54 ng/L Testing performed on Skycheckin analyzer using direct chemiluminescent technology. TSH Qn 2.700 mIU/mL Normal 0.550 - 4.780 mIU/mL AH ADM SS WBC (Bld) [#/Vol] 5.5 103/mcL Normal 4.5 - 10.8 10^3/mcL AH Workflow SS LIPon 05-10-2024 Lipase Level 31 U/L Normal 12-53 [facility] Comment on above: Result Comment: No te - New Reference Range in effect 19 Performed By: #### F ES, PRO, TSHR, ADIFF, CBC, GFR, FOL, MG, LIP, B12, ANEU, FERR, TROPHS, CMP, MORPH #### [facility] [address] [place] [address] MGon 05-10-2024 Magnesium [Mass/Vol] 1.7 mg/dL Normal 1.6-2.4 [facility] Comment on above: Performed By: #### F ES, PRO, TSHR, ADIFF, CBC, GFR, FOL, MG, LIP, B12, ANEU, FERR, TROPHS, CMP, MORPH #### [address] [address] PROon 05-10-2024 INR Coag (PPP) [Relative time] 1.0 {INR} Normal [facility] Comment on above: Result Comment: [employer] (CHEST, 1992, 102:312S-25S) recommended therapeutic range for oral anticoagulant therapy is: LOW RISK: Prophylaxis of venous thrombosis INR: 2.0-3.0 Treatment of pulmonary embolism 2.0-3.0 Prevention of systemic embolism 2.0-3.0 HIGH RISK: Mechanical prosthetic valves 2.5-3.5 Performed By: #### F ES, PRO, TSHR, ADIFF, CBC, GFR, FOL, MG, LIP, B12, ANEU, FERR, TROPHS, CMP, MORPH #### [place] [address] [place] [id number] PT Coag (PPP) [Time] 11.8 s Normal 9.0-14.4 [facility] Comment on above: Result Comment: Effe ctive 10/30/07, Protime results may be affected by some antibiotics (i.e. Ciprofloxacin, Azithromycin, Bactrim) which may potentiate the action of oral anticoagulants, with further increases in Protime/INR. Performed By: #### F ES, PRO, TSHR, ADIFF, CBC, GFR, FOL, MG, LIP, B12, ANEU, FERR, TROPHS, CMP, MORPH #### [place] [address] TROPHSon 05-10-2024 High Sensitivity Troponin I 24 ng/L Normal 0-34 [facility] Comment on above: Result Comment: High Sensitive Troponin I Reference Ranges: Female: 0-34 ng/L Male: 0-54 ng/L Testing performed on Skycheckin analyzer using direct chemiluminescent technology. Performed By: #### F ES, PRO, TSHR, ADIFF, CBC, GFR, FOL, MG, LIP, B12, ANEU, FERR, TROPHS, CMP, MORPH #### [place] [address] TSHRon 05-10-2024 TSH 2.700 mIU/mL Normal 0.550-4.78 0 [facility] Comment on above: Performed By: #### F ES, PRO, TSHR, ADIFF, CBC, GFR, FOL, MG, LIP, B12, ANEU, FERR, TROPHS, CMP, MORPH #### [place] [address] .Auto Diffon 05-09-2024 Basophil, Absolute 0.1 10 3/mcL Normal 0.0-0.3 [facility]SY [facility]D [facility] Comment on above: Performed By: #### M DW, CBC, CMP, MORPH, GFR, TROPHS, ADIFF, ANEU, PBNP #### [facility] [address] [place], [place] [address] Basophils/100 WBC (Bld) 1.4 % Normal 0.0-2.5 JOSE [facility] Comment on above: Performed By: #### M DW, CBC, CMP, MORPH, GFR, TROPHS, ADIFF, ANEU, PBNP #### [facility] [address] [place], [place] [address] Eosinophil, Absolute 0.1 10 3/mcL Normal 0.0-0.7 JOSE [facility] Comment on above: Performed By: #### M DW, CBC, CMP, MORPH, GFR, TROPHS, ADIFF, ANEU, PBNP #### [facility] [place] [address] [place], [place] [address] Eosinophils/100 WBC (Bld) 1.6 % Normal 0.0-6.0 [facility] Comment on above: Performed By: #### M DW, CBC, CMP, MORPH, GFR, TROPHS, ADIFF, ANEU, PBNP #### [facility] [address] [place], [place] [address] Lymphocyte, Absolute 0.8 10 3/mcL Low 0.9-4.3 [facility] Comment on above: Performed By: #### M DW, CBC, CMP, MORPH, GFR, TROPHS, ADIFF, ANEU, PBNP #### [facility] [address] [place], [place] [address] Lymphocytes/100 WBC (Bld) 11.4 % Low 20.0-40.0 [facility] Comment on above: Performed By: #### M DW, CBC, CMP, MORPH, GFR, TROPHS, ADIFF, ANEU, PBNP #### [facility] [address] [place], [place] [address] Monocyte, Absolute 0.5 10 3/mcL Normal 0.1-1.4 MISSY MAN [facility]LL[facility] Comment on above: Performed By: #### M DW, CBC, CMP, MORPH, GFR, TROPHS, ADIFF, ANEU, PBNP #### [facility] [address] [place], [place] [address] Monocytes/100 WBC (Bld) 7.3 % Normal 2.0-13.0 [facility] Comment on above: Performed By: #### M DW, CBC, CMP, MORPH, GFR, TROPHS, ADIFF, ANEU, PBNP #### [facility] [address] [place], [place] [address] Neutrophils/100 WBC (Bld) 78.3 % High 50.0-75.0 [facility] Comment on above: Performed By: #### M DW, CBC, CMP, MORPH, GFR, TROPHS, ADIFF, ANEU, PBNP #### [facility] [address] [place], [place] [address] .GFRon 05-09-2024 GFR Non- 58 ml/min/1.73sqm Normal JOSE MASSILLON Comment on above: Result Comment: GFR Population mean for , Non- Americans Ages 20-29 = 116 mL/min/1.73 sq.m. Ages 30-39 = 107 mL/min/1.73 sq.m. Ages 40-49 = 99 mL/min/1.73 sq.m. Ages 50-59 = 93 mL/min/1.73 sq.m. Ages 60-69 = 85 mL/min/1.73 sq.m. Ages 70+ = 75 mL/min/1.73 sq.m. Chronic Kidney Disease: Less than 60 mL/min/1.73 square meters End Stage Renal Disease: Less than 15 mL/min/1.73 square meters Performed By: #### M DW, CBC, CMP, MORPH, GFR, TROPHS, ADIFF, ANEU, PBNP #### [facility] [place] [address] [place], [place] [address] GFR 70 ml/min/1.73sqm Normal JOSE MASSILLON Comment on above: Result Comment: GFR Population mean for , Non- Americans Ages 20-29 = 116 mL/min/1.73 sq.m. Ages 30-39 = 107 mL/min/1.73 sq.m. Ages 40-49 = 99 mL/min/1.73 sq.m. Ages 50-59 = 93 mL/min/1.73 sq.m. Ages 60-69 = 85 mL/min/1.73 sq.m. Ages 70+ = 75 mL/min/1.73 sq.m. Chronic Kidney Disease: Less than 60 mL/min/1.73 square meters End Stage Renal Disease: Less than 15 mL/min/1.73 square meters Performed By: #### M DW, CBC, CMP, MORPH, GFR, TROPHS, ADIFF, ANEU, PBNP #### [facility] [place] [address] [place], [place] [address] .MDWon 05-09-2024 Monocyte Distribution Width 22.25 High 0.00-20.00 JOSE MASSILLON Comment on above: Result Comment: For adults in ED, MDW>20.0 may be associated with a higher risk of sepsis during the first 12hrs of hospital admission Performed By: #### M DW, CBC, CMP, MORPH, GFR, TROPHS, ADIFF, ANEU, PBNP #### [facility] [place] [address] [place], [place] [address] .Morphon 05-09-2024 Anisocytosis Ql (Bld) 2+ Normal JOSE MASSILLON Comment on above: Performed By: #### M DW, CBC, CMP, MORPH, GFR, TROPHS, ADIFF, ANEU, PBNP #### [facility] [place] [address] [place], [place] [address] Echinocytes 1+ Normal JOSE MASSILL[facility] Comment on above: Performed By: #### M DW, CBC, CMP, MORPH, GFR, TROPHS, ADIFF, ANEU, PBNP #### [facility] [place] [address] [place], [place] [address] Microcytosis 2+ Normal JOSE [facility]LL[facility] Comment on above: Performed By: #### M DW, CBC, CMP, MORPH, GFR, TROPHS, ADIFF, ANEU, PBNP #### [facility] [place] [address] [place], [place] [address] Ovalocytes 1+ Normal JOSE [facility]LL[facility] Comment on above: Performed By: #### M DW, CBC, CMP, MORPH, GFR, TROPHS, ADIFF, ANEU, PBNP #### [facility] [place] [address] [place], [place] [address] Platelet Estimate Normal Normal JOSE MAS[facility]LL[facility] Comment on above: Performed By: #### M DW, CBC, CMP, MORPH, GFR, TROPHS, ADIFF, ANEU, PBNP #### [facility] [place] [address] [place], [place] [address] Poik 2+ Normal JOSE MAS[facility]LL[facility] Comment on above: Performed By: #### M DW, CBC, CMP, MORPH, GFR, TROPHS, ADIFF, ANEU, PBNP #### [facility] [place] [address] [place], [place] [address] Polychrom 1+ Normal JOSE [facility]LL[facility] Comment on above: Performed By: #### M DW, CBC, CMP, MORPH, GFR, TROPHS, ADIFF, ANEU, PBNP #### [facility] [address] [place], [place] [address] Tear Cell 1+ Normal [facility] Comment on above: Performed By: #### M DW, CBC, CMP, MORPH, GFR, TROPHS, ADIFF, ANEU, PBNP #### [facility] [address] [place], [place] [address] .NEUABSon 05-09-2024 Neutrophil, Absolute 5.5 10 3/mcL Normal 2.3-8.1 [facility] Comment on above: Performed By: #### C VFLURV #### [facility] [address] [place], [place] [address] Basic Metabolic Profile (BMP )on 05-09-2024 BUN Normal 7-18 [facility] Comment on above: Result Comment: Canc elled via OM: Order cancelled - Patient discharged Performed By: #### L 500.4050, L3410.9999, [id number] #### [facility] [address] [place], [address] BUN/CRE Normal 10-20 [facility] Comment on above: Result Comment: Canc elled via OM: Order cancelled - Patient discharged Performed By: #### L 500.4050, L3410.9999, [id number] #### [facility] [address] [place], [address] CA,Total Normal 8.5-10.1 [facility] Comment on above: Result Comment: Canc elled via OM: Order cancelled - Patient discharged Performed By: #### L 500.4050, L3410.9999, [id number] #### [facility] [address] [place], [address] CL Normal 98-107 [facility] Comment on above: Result Comment: Canc elled via OM: Order cancelled - Patient discharged Performed By: #### L 500.4050, L3410.9999, [id number] #### [facility] [address] [place], [address] CO2 Normal 21.0-32.0 [facility] Comment on above: Result Comment: Canc elled via OM: Order cancelled - Patient discharged Performed By: #### L 500.4050, L3410.9999, [id number] #### [facility] [address] [place], [address] CREAT,SERUM Normal 0.55-1.02 [facility] Comment on above: Result Comment: Canc elled via OM: Order cancelled - Patient discharged Performed By: #### L 500.4050, L3410.9999, [id number] #### [facility] [address] [place], [address] EST GFR Normal >60 [facility] Comment on above: Result Comment: Canc elled via OM: Order cancelled - Patient discharged Performed By: #### L 500.4050, L3410.9999, [id number] #### [facility] [address] [place], [address] EST GFR - AA Normal >60 [facility] Comment on above: Result Comment: Canc elled via OM: Order cancelled - Patient discharged Performed By: #### L 500.4050, L3410.9999, [id number] #### [facility] [address] [place], [address] GAP Normal 5-15 [facility] Comment on above: Result Comment: Canc elled via OM: Order cancelled - Patient discharged Performed By: #### L 500.4050, L3410.9999, [id number] #### [facility] [address] [place], [address] GLU Normal 74-106 [facility] Comment on above: Result Comment: Canc elled via OM: Order cancelled - Patient discharged Performed By: #### L 500.4050, L3410.9999, [id number] #### [facility] [address] [place], [address] Potassium Normal 3.5-5.1 [facility] Comment on above: Result Comment: Canc elled via OM: Order cancelled - Patient discharged Performed By: #### L 500.4050, L3410.9999, [id number] #### [facility] [address] [place], [address] Basic Metabolic Profile (BMP) Normal 136-145 [facility] Comment on above: Result Comment: Canc elled via OM: Order cancelled - Patient discharged Performed By: #### L 500.4050, L3410.9999, [id number] #### [facility] [address] [place], [address] CBCon 05-09-2024 Erythrocyte distribution width (RBC) [Ratio] 22.5 % High 11.5-15.5 [facility] Comment on above: Performed By: #### M DW, CBC, CMP, MORPH, GFR, TROPHS, ADIFF, ANEU, PBNP #### [facility] [address] [place], [place] [address] Hematocrit (Bld) [Volume fraction] 23.1 % Low 34.0-46.0 [facility] Comment on above: Performed By: #### M DW, CBC, CMP, MORPH, GFR, TROPHS, ADIFF, ANEU, PBNP #### [facility] [place] [address] [place], [place] [address] Hgb 6.7 G/dL Critically abnormal 12.0-16.0 [facility] Comment on above: Performed By: #### M DW, CBC, CMP, MORPH, GFR, TROPHS, ADIFF, ANEU, PBNP #### [facility] [address] [place], [place] [address] MCH (RBC) [Entitic mass] 19.1 pg Low 27.0-33.0 [facility] Comment on above: Performed By: #### M DW, CBC, CMP, MORPH, GFR, TROPHS, ADIFF, ANEU, PBNP #### [facility] [address] [place], [place] [address] MCHC 28.9 G/dL Low 32.0-36.0 JO[facility] MASSILLO Comment on above: Performed By: #### M DW, CBC, CMP, MORPH, GFR, TROPHS, ADIFF, ANEU, PBNP #### [facility] [address] [place] [phone] MCV (RBC) [Entitic vol] 66.3 fL Low 80.0-99.0 [facility] Comment on above: Performed By: #### M DW, CBC, CMP, MORPH, GFR, TROPHS, ADIFF, ANEU, PBNP #### [facility] [address] [place] [phone] Platelet 371 10 3/mcL Normal 150-450 [facility]LL[facility] Comment on above: Performed By: #### M DW, CBC, CMP, MORPH, GFR, TROPHS, ADIFF, ANEU, PBNP #### [facility] [place] [address] [place] [phone] Platelet mean volume (Bld) [Entitic vol] 8.4 fL Normal 6.6-10.5 O[facility] Comment on above: Performed By: #### M DW, CBC, CMP, MORPH, GFR, TROPHS, ADIFF, ANEU, PBNP #### [facility] [address] [place] [phone] RBC 3.48 10 6/mcL Low 4.10-5.30 [facility] Comment on above: Performed By: #### M DW, CBC, CMP, MORPH, GFR, TROPHS, ADIFF, ANEU, PBNP #### [facility] [place] [address] [place] [phone] WBC 7.1 10 3/mcL Normal 4.5-10.8 [facility] Comment on above: Performed By: #### M DW, CBC, CMP, MORPH, GFR, TROPHS, ADIFF, ANEU, PBNP #### [facility] [place] [address] [place], [place] [address] CBC W/Diff, Automatedon 01- Absolute Neut Normal 2.0-7.7 [facility] Comment on above: Result Comment: Canc elled via OM: Order cancelled - Patient discharged Performed By: #### L 500.4050, L3410.9999, [id number] #### [facility] [address] [place], [address] HCT Normal 37-47 [facility] Comment on above: Result Comment: Canc elled via OM: Order cancelled - Patient discharged Performed By: #### L 500.4050, L3410.9999, [id number] #### [facility] [address] [place], [address] HGB Normal 12.0-15.0 [facility] Comment on above: Result Comment: Canc elled via OM: Order cancelled - Patient discharged Performed By: #### L 500.4050, L3410.9999, [id number] #### [facility] [address] [place], [address] MCH Normal 27.0-32.0 [facility] Comment on above: Result Comment: Canc elled via OM: Order cancelled - Patient discharged Performed By: #### L 500.4050, L3410.9999, [id number] #### [facility] [address] [place], [address] MCHC Normal 32-36 [facility] Comment on above: Result Comment: Canc elled via OM: Order cancelled - Patient discharged Performed By: #### L 500.4050, L3410.9999, [id number] #### [facility] [address] [place], [address] MCV Normal 81-99 [facility] Comment on above: Result Comment: Canc elled via OM: Order cancelled - Patient discharged Performed By: #### L 500.4050, L3410.9999, [id number] #### [facility] [address] [place], [address] NEUT% Normal 47-70 [facility] Comment on above: Result Comment: Canc elled via OM: Order cancelled - Patient discharged Performed By: #### L 500.4050, L3410.9999, [id number] #### [facility] [address] [place], [address] PLT Normal 150-450 [facility] Comment on above: Result Comment: Canc elled via OM: Order cancelled - Patient discharged Performed By: #### L 500.4050, L3410.9999, [id number] #### [facility] [address] [place], [address] RBC Normal 4.2-5.4 [facility] Comment on above: Result Comment: Canc elled via OM: Order cancelled - Patient discharged Performed By: #### L 500.4050, L3410.9999, [id number] #### [facility] [address] [place], [address] RDW CV Normal 11.6-14.6 [facility] Comment on above: Result Comment: Canc elled via OM: Order cancelled - Patient discharged Performed By: #### L 500.4050, L3410.9999, [id number] #### [facility] [address] [place], [address] RDW SD Normal 35.1-43.9 [facility] Comment on above: Result Comment: Canc elled via OM: Order cancelled - Patient discharged Performed By: #### L 500.4050, L3410.9999, [id number] #### [facility] [address] [place], [address] WBC Normal 4.4-11.0 [facility] Comment on above: Result Comment: Canc elled via OM: Order cancelled - Patient discharged Performed By: #### L 500.4050, L3410.9999, [id number] #### [facility] [address] [place], [address] CMPon 05-09-2024 Albumin Level 2.3 G/dL Low 3.5-5.0 [facility] Comment on above: Performed By: #### M DW, CBC, CMP, MORPH, GFR, TROPHS, ADIFF, ANEU, PBNP #### [facility] [place] [address] [place], [place] [address] Albumin/Globulin [Mass ratio] 0.6 {ratio} Low 1.1-2.5 [facility] Comment on above: Performed By: #### M DW, CBC, CMP, MORPH, GFR, TROPHS, ADIFF, ANEU, PBNP #### [facility] [place] [address] [place], [place] [address] ALP [Catalytic activity/Vol] 127 U/L Normal 40-135 [facility] Comment on above: Performed By: #### M DW, CBC, CMP, MORPH, GFR, TROPHS, ADIFF, ANEU, PBNP #### [facility] [place] [address] [place], [place] [address] ALT [Catalytic activity/Vol] 85 U/L High 14-59 [facility] Comment on above: Performed By: #### M DW, CBC, CMP, MORPH, GFR, TROPHS, ADIFF, ANEU, PBNP #### [facility] [place] [address] [place], [place] [address] AST [Catalytic activity/Vol] 76 U/L High 10-40 [facility] Comment on above: Performed By: #### M DW, CBC, CMP, MORPH, GFR, TROPHS, ADIFF, ANEU, PBNP #### [facility] [place] [address] [place], [place] [address] Bili Total 0.3 mg/dL Normal 0.2-1.0 [facility] Comment on above: Result Comment: Use of this assay is not recommended for patients undergoing treatment with eltrombopag due to the potential for falsely elevated results. Performed By: #### M DW, CBC, CMP, MORPH, GFR, TROPHS, ADIFF, ANEU, PBNP #### [facility] [place] [address] [place], [place] [address] BUN/Creatinine Ratio 12 ratio Normal 7-27 [facility] Comment on above: Performed By: #### M DW, CBC, CMP, MORPH, GFR, TROPHS, ADIFF, ANEU, PBNP #### [facility] [address] [place], [place] [address] Calcium [Mass/Vol] 8.9 mg/dL Normal 8.4-10.2 [facility] Comment on above: Performed By: #### M DW, CBC, CMP, MORPH, GFR, TROPHS, ADIFF, ANEU, PBNP #### [facility] [address] [place], [place] [address] Chloride [Moles/Vol] 101 mmol/L Normal 98-107 [facility] Comment on above: Performed By: #### M DW, CBC, CMP, MORPH, GFR, TROPHS, ADIFF, ANEU, PBNP #### [facility] [address] [place], [place] [address] CO2 [Moles/Vol] 26 mmol/L Normal 22-29 [facility]LLO Comment on above: Performed By: #### M DW, CBC, CMP, MORPH, GFR, TROPHS, ADIFF, ANEU, PBNP #### [facility] [place] [address] [place], [place] [address] Creatinine [Mass/Vol] 1.01 mg/dL Normal 0.55-1.02 [facility] Comment on above: Result Comment: Test ing performed on Siemens Dimension EXL analyzer using a modified kinetic [place] technique. Performed By: #### M DW, CBC, CMP, MORPH, GFR, TROPHS, ADIFF, ANEU, PBNP #### [facility] [place] [address] [place], [place] [address] Electrolyte Balance 6.0 mEq/L Normal 4.0-15.0 [facility] Comment on above: Performed By: #### M DW, CBC, CMP, MORPH, GFR, TROPHS, ADIFF, ANEU, PBNP #### [facility] [address] [place], [place] [address] Globulin 4.1 G/dL Normal [facility] Comment on above: Performed By: #### M DW, CBC, CMP, MORPH, GFR, TROPHS, ADIFF, ANEU, PBNP #### [facility] [address] [place], [place] [address] Glucose [Mass/Vol] 528 mg/dL Critically abnormal 70-105 [facility] Comment on above: Performed By: #### M DW, CBC, CMP, MORPH, GFR, TROPHS, ADIFF, ANEU, PBNP #### [facility] [address] [place], [place] [address] Potassium [Moles/Vol] 4.9 mmol/L Normal 3.5-5.1 [facility] Comment on above: Performed By: #### M DW, CBC, CMP, MORPH, GFR, TROPHS, ADIFF, ANEU, PBNP #### [facility] [address] [place], [place] [address] Sodium [Moles/Vol] 133 mmol/L Low 136-145 [facility] Comment on above: Performed By: #### M DW, CBC, CMP, MORPH, GFR, TROPHS, ADIFF, ANEU, PBNP #### [facility] [address] [place], [place] [address] Total Protein 6.4 G/dL Normal 6.4-8.2 [facility] Comment on above: Performed By: #### M DW, CBC, CMP, MORPH, GFR, TROPHS, ADIFF, ANEU, PBNP #### [facility] [address], [place] [address] Urea nitrogen [Mass/Vol] 12 mg/dL Normal 7-18 [facility] Comment on above: Performed By: #### M DW, CBC, CMP, MORPH, GFR, TROPHS, ADIFF, ANEU, PBNP #### Jose Sahan [address] [place] [id number] CVFLURVon 05-09-2024 FLU A PCR Negative Normal Negative [facility] Comment on above: Performed By: #### C VFLURV #### Jose Sahan [address], [place] [address] FLU B PCR Negative Normal Negative [facility] Comment on above: Performed By: #### C VFLURV #### Jose Sahan [address] [place] [id number] RSV PCR Negative Normal Negative [facility] Comment on above: Performed By: #### C VFLURV #### [facility] [address] [place] [place] [id number] SARS-CoV-2 (COVID-19) RNA JOSE G+probe Ql (Unsp spec) Negative Normal Negative [facility] Comment on above: Result Comment: This test has been authorized by FDA under an EUA for use by authorized laboratories and has not been FDA cleared or approved. Results from the Xpert Xpress SARS-CoV-2/Flu/RSV or Xpert Xpress SARS-CoV-2 only test should be correlated with the clinical history, epidemiological data, and other data available to the clinician evaluating the patient. Performance of the Xpert Xpress SARS-CoV-2/Flu/RSV or Xpert Xpress SARS-CoV-2 only test has only been established in nasopharyngeal swab specimens. Erroneous test results might occur from improper specimen collection; failure to follow the recommended sample collection, handling, and storage procedures; technical error; or sample mix-up.False negative results may occur if virus is present at levels below the analytical limit of detection. Viral nucleic acid may persist in vivo, independent of virus viability. Detection of analyte target(s) does not imply that the corresponding virus(es) are infectious or are the causative agents for clinical symptoms.Recent patient exposure to FluMist or other live attenuated influenza vaccines may cause inaccurate positive results. Performed By: #### C VFLURV #### Jose [place] [address] [place] [phone] LABORATORYOrdered By: SYSTEM SYSTEM on 05-09-2024 Albumin Level 2.3 G/dL Low 3.5 - 5.0 G/dL AM ADM SS Albumin/Globulin [Mass ratio] 0.6 {ratio} Low 1.1 - 2.5 ratio AM ADM SS Alk Phos 127 1 Normal 40 - 135 U/L AM ADM SS ALT [Catalytic activity/Vol] 85 U/L High 14 - 59 U/L AM ADM SS AST [Catalytic activity/Vol] 76 U/L High 10 - 40 U/L AM ADM SS Bili Total 0.3 mg/dL Normal 0.2 - 1.0 mg/dL AM ADM SS Comment on above: Interpretive Data: U se of this assay is not recommended for patients undergoing treatment with eltrombopag due to the potential for falsely elevated results. Globulin 4.1 G/dL Invalid Interpretation Code AM ADM SS High Sensitivity Troponin I 33 ng/L Normal 0 - 51 ng/L AM ADM SS Comment on above: Interpretive Data: H igh Sensitive Troponin I Reference Ranges: Female: 0-51 ng/L Male: 0-76 ng/L Testing performed on [employer] using a homogeneous sandwich chemiluminescent immunoassay based on [employer] technology. Monocyte distribution width Auto (Bld) [Entitic vol] 22.25 1 High 0.00 - 20.00 AM Workflow SS Comment on above: Result Comment: For adults in ED, MDW>20.0 may be associated with a higher risk of sepsis during the first 12hrs of hospital admission Natriuretic peptide B (Bld) [Mass/Vol] 89170 pg/mL High 0 - 125 pg/mL AM ADM SS Total Protein 6.4 G/dL Normal 6.4 - 8.2 G/dL AM ADM SS LABORATORYOrdered By: Cindy Cr on 05-09-2024 Anisocytosis Ql (Bld) 2+ (05/09/24 8:30 PM) Normal AM Hemmatology S [place] cells LM Ql (Bld) 1+ (05/09/24 8:30 PM) Normal AM Hemmatology S Dacrocytes LM Ql (Bld) 1+ (05/09/24 8:30 PM) Normal AM Hemmatology S FLUAV RNA JOSE G+probe Ql (Resp) Negative (05/09/24 8:30 PM) Normal Negative AM Auto Molecular SS FLUBV RNA JOSEG +probe Ql (Resp) Negative (05/09/24 8:30 PM) Normal Negative AM Auto Molecular SS Microcytes Ql (Bld) 2+ (05/09/24 8:30 PM) Normal AM Hemmatology S Ovalocytes LM Ql (Bld) 1+ (05/09/24 8:30 PM) Normal AM Hemmatology S Platelets LM Ql (Bld) Normal (05/09/24 8:30 PM) Normal AM Hemmatology S Poikilocytosis LM Ql (Bld) 2+ (05/09/24 8:30 PM) Normal AM Hemmatology S Polychromasia LM Ql (Bld) 1+ (05/09/24 8:30 PM) Normal AM Hemmatology S RSV PCR Negative (05/09/24 8:30 PM) Normal Negative AM Auto Molecular SS SARS-CoV-2 (COVID-19) RNA JOSE G+probe Ql (Resp) Negative 13 (05/09/24 8:30 PM) Normal Negative AM Auto Molecular SS Comment on above: Interpretive Data: T his test has been authorized by FDA under an EUA for use by authorized laboratories and has not been FDA cleared or approved. Results from the Xpert Xpress SARS-CoV-2/Flu/RSV or Xpert Xpress SARS-CoV-2 only test should be correlated with the clinical history, epidemiological data, and other data available to the clinician evaluating the patient. Performance of the Xpert Xpress SARS-CoV-2/Flu/RSV or Xpert Xpress SARS-CoV-2 only test has only been established in nasopharyngeal swab specimens. Erroneous test results might occur from improper specimen collection; failure to follow the recommended sample collection, handling, and storage procedures; technical error; or sample mix-up.False negative results may occur if virus is present at levels below the analytical limit of detection. Viral nucleic acid may persist in vivo, independent of virus viability. Detection of analyte target(s) does not imply that the corresponding virus(es) are infectious or are the causative agents for clinical symptoms.Recent patient exposure to FluMist or other live attenuated influenza vaccines may cause inaccurate positive results. PBNPon 05-09-2024 Natriuretic peptide B (Bld) [Mass/Vol] 78381 pg/mL High 0-125 [facility] Comment on above: Performed By: #### M DW, CBC, CMP, MORPH, GFR, TROPHS, ADIFF, ANEU, PBNP #### Jose [facility]eria [address], [place] [address] TROPHSon 05-09-2024 High Sensitivity Troponin I 33 ng/L Normal 0-51 [facility] Comment on above: Result Comment: High Sensitive Troponin I Reference Ranges: Female: 0-51 ng/L Male: 0-76 ng/L Testing performed on [employer] using a homogeneous sandwich chemiluminescent immunoassay based on [employer] technology. Performed By: #### M DW, CBC, CMP, MORPH, GFR, TROPHS, ADIFF, ANEU, PBNP #### Jose Renteria [address], [place] [address] XR CHEST 2 VIEWSon XR CHEST 2 VIEWS ORIGINAL EXAMINATION: TWO XRAY VIEWS OF THE CHEST 05/09/2024 8:49 pm COMPARISON: 11/09/2023 HISTORY: ORDERING SYSTEM PROVIDED HISTORY: Reason for Exam: SOB FINDINGS: Stable cardiomediastinal silhouette. Atherosclerotic aorta. Coronary stent. Low lung volumes with perihilar and bibasilar opacities and mild interstitial prominence. No large pleural effusion or visible pneumothorax. No acute osseous abnormality. IMPRESSION: Low lung volumes with perihilar and lower lung field opacities concerning for pneumonia or other infiltrates. Correlate clinically and follow-up to resolution. Interpreted by: Polo Estrada Preliminary Report By: Stan Zuñiga Electronically signed By Polo Estrada Dictated Date: 05/09/2024 8:53:28 PM Prelim Date: 05/09/2024 8:55:02 PM Sign Date: 05/09/2024 8:55:56 PM Ordering Provider: KATHY TORRES Normal [facility] Basic Metabolic Profile (BMP )on 05-08-2024 BUN Normal 7-18 [facility] Comment on above: Result Comment: Canc elled via OM: Order cancelled - Patient discharged Performed By: #### L 500.4050, L3410.9999, L300.3900 #### [facility] [address] [place], [address] BUN/CRE Normal 10-20 [facility] Comment on above: Result Comment: Canc elled via OM: Order cancelled - Patient discharged Performed By: #### L 500.4050, L3410.9999, L300.3900 #### [facility] [address] [place], [address] CA,Total Normal 8.5-10.1 [facility] Comment on above: Result Comment: Canc elled via OM: Order cancelled - Patient discharged Performed By: #### L 500.4050, L3410.9999, L300.3900 #### [facility] [address] [place], [address] CL Normal 98-107 [facility] Comment on above: Result Comment: Canc elled via OM: Order cancelled - Patient discharged Performed By: #### L 500.4050, L3410.9999, L300.3900 #### [facility] [address] [place], [address] CO2 Normal 21.0-32.0 [facility] Comment on above: Result Comment: Canc elled via OM: Order cancelled - Patient discharged Performed By: #### L 500.4050, L3410.9999, L300.3900 #### [facility] [address] [place], [address] CREAT,SERUM Normal 0.55-1.02 [facility] Comment on above: Result Comment: Canc elled via OM: Order cancelled - Patient discharged Performed By: #### L 500.4050, L3410.9999, L300.3900 #### [facility] [address] [place], [address] EST GFR Normal >60 [facility] Comment on above: Result Comment: Canc elled via OM: Order cancelled - Patient discharged Performed By: #### L 500.4050, L3410.9999, L300.3900 #### [facility] [address] [place], [address] EST GFR - AA Normal >60 [facility] Comment on above: Result Comment: Canc elled via OM: Order cancelled - Patient discharged Performed By: #### L 500.4050, L3410.9999, L300.3900 #### [facility] [address] [place], [address] GAP Normal 5-15 [facility] Comment on above: Result Comment: Canc elled via OM: Order cancelled - Patient discharged Performed By: #### L 500.4050, L3410.9999, L300.3900 #### [facility] [address] [place], [address] GLU Normal 74-106 [facility] Comment on above: Result Comment: Canc elled via OM: Order cancelled - Patient discharged Performed By: #### L 500.4050, L3410.9999, L300.3900 #### [facility] [address] [place], [address] Potassium Normal 3.5-5.1 [facility] Comment on above: Result Comment: Canc elled via OM: Order cancelled - Patient discharged Performed By: #### L 500.4050, L3410.9999, L300.3900 #### [facility] [address] [place], [address] Basic Metabolic Profile (BMP) Normal 136-145 [facility] Comment on above: Result Comment: Canc elled via OM: Order cancelled - Patient discharged Performed By: #### L 500.4050, L3410.9999, L300.3900 #### [facility] [address] [place], [address] CBC W/Diff, Automatedon -2 Absolute Neut Normal 2.0-7.7 [facility] Comment on above: Result Comment: Canc elled via OM: Order cancelled - Patient discharged Performed By: #### L 500.4050, L3410.9999, L300.3900 #### [facility] [address] [place], [address] HCT Normal 37-47 [facility] Comment on above: Result Comment: Canc elled via OM: Order cancelled - Patient discharged Performed By: #### L 500.4050, L3410.9999, L300.3900 #### [facility] [address] [place], [address] HGB Normal 12.0-15.0 [facility] Comment on above: Result Comment: Canc elled via OM: Order cancelled - Patient discharged Performed By: #### L 500.4050, L3410.9999, L300.3900 #### [facility] [address] [place], [address] MCH Normal 27.0-32.0 [facility] Comment on above: Result Comment: Canc elled via OM: Order cancelled - Patient discharged Performed By: #### L 500.4050, L3410.9999, L300.3900 #### [facility] [address] [place], [address] MCHC Normal 32-36 [facility] Comment on above: Result Comment: Canc elled via OM: Order cancelled - Patient discharged Performed By: #### L 500.4050, L3410.9999, L300.3900 #### [facility] [address] [place], [address] MCV Normal 81-99 [facility] Comment on above: Result Comment: Canc elled via OM: Order cancelled - Patient discharged Performed By: #### L 500.4050, L3410.9999, L300.3900 #### [facility] [address] [place], [address] NEUT% Normal 47-70 [facility] Comment on above: Result Comment: Canc elled via OM: Order cancelled - Patient discharged Performed By: #### L 500.4050, L3410.9999, L300.3900 #### [facility] [address] [place], [address] PLT Normal 150-450 [facility] Comment on above: Result Comment: Canc elled via OM: Order cancelled - Patient discharged Performed By: #### L 500.4050, L3410.9999, L300.3900 #### [facility] [address] [place], [address] RBC Normal 4.2-5.4 [facility] Comment on above: Result Comment: Canc elled via OM: Order cancelled - Patient discharged Performed By: #### L 500.4050, L3410.9999, L300.3900 #### [facility] [address] [place], [address] RDW CV Normal 11.6-14.6 [facility] Comment on above: Result Comment: Canc elled via OM: Order cancelled - Patient discharged Performed By: #### L 500.4050, L3410.9999, L300.3900 #### [facility] [address] [place], [address] RDW SD Normal 35.1-43.9 [facility] Comment on above: Result Comment: Canc elled via OM: Order cancelled - Patient discharged Performed By: #### L 500.4050, L3410.9999, L300.3900 #### [facility] [address] [place], [address] WBC Normal 4.4-11.0 [facility] Comment on above: Result Comment: Canc elled via OM: Order cancelled - Patient discharged Performed By: #### L 500.4050, L3410.9999, L300.3900 #### [facility] [address] [place], [address] Basic Metabolic Profile (BMP )on 05-07-2024 BUN/CRE 11.3 RATIO Normal 10-20 [facility] Comment on above: Performed By: #### L 501.080 #### [facility] [address] [place], [address] CA,Total 8.0 mg/dL Low 8.5-10.1 [facility] Comment on above: Performed By: #### L 501.080 #### [facility] [address] [place], [address] Chloride [Moles/Vol] 105 mmol/L Normal 98-107 [facility] Comment on above: Performed By: #### L 501.080 #### [facility] [address] [place], [address] CO2 [Moles/Vol] 23.0 mmol/L Normal 21.0-32.0 [facility] Comment on above: Performed By: #### L 501.080 #### [facility] [address] [place], [address] Creatinine [Mass/Vol] 1.06 mg/dL High 0.55-1.02 [facility] Comment on above: Result Comment: The validity of the calculated GFR GFRAA in patients over 70 years has not been determined. Clinical correlation is essential. Performed By: #### L 501.080 #### [facility] [address] [place], [address] ECRCL 60.37 ml/min Normal [facility] Comment on above: Performed By: #### L 501.080 #### [facility] [address] [place], [address] EST GFR - AA 70 mL/min Normal >60 [facility] Comment on above: Result Comment: Afri can Congolese GFR Calc Performed By: #### L 501.080 #### [facility] [address] [place], [address] GAP 6 Normal 5-15 [facility] Comment on above: Performed By: #### L 501.080 #### [facility] [address] [place], [address] GFR/1.73 sq M.predicted among non-blacks MDRD (S/P/Bld) [Vol rate/Area] 58 mL/min/{1.73_m2} Low >60 [facility] Comment on above: Result Comment: Non- GFR Calc Performed By: #### L 501.080 #### [facility] [address] [place], [address] Glucose [Mass/Vol] 299 mg/dL High 74-106 [facility] Comment on above: Result Comment: Gluc ose result greater than or equal to 200 mg/dL suggests DIABETES MELLITUS per A.D.A. criteria. Performed By: #### L 501.080 #### [facility] [address] [place], [address] Potassium [Moles/Vol] 4.2 mmol/L Normal 3.5-5.1 [facility] Comment on above: Performed By: #### L 501.080 #### [facility] [address] [place], [address] Sodium [Moles/Vol] 134 mmol/L Low 136-145 [facility] Comment on above: Performed By: #### L 501.080 #### [facility] [address] [place], [address] Urea nitrogen [Mass/Vol] 12 mg/dL Normal 7-18 [facility] Comment on above: Performed By: #### L 501.080 #### [facility] [address] [place], [address] Bedside Glucoseon 05-07-2024 FINGERSTICK GLU 152 mg/dL High 74-106 [facility] Comment on above: Result Comment: MANJINDER GEMENT OF PATIENT CARE PER NURSING PROTOCOL Performed By: #### L 501.4020, L500.4050, L100.0100 #### [facility] [address] [place], [address] FINGERSTICK GLU 268 mg/dL High 74-106 [facility] Comment on above: Result Comment: MANJINDER GEMENT OF PATIENT CARE PER NURSING PROTOCOL Performed By: #### L 500.4050, L3410.9999, L300.3900 #### [facility] [address] [place], [address] CBC W/Diff, Automatedon 04-18 PATH REV Reviewed Normal [facility] Comment on above: Result Comment: BALDEV RE Microcytic anemia. Thrombocytosis. Clinical correlation necessary. Janes Kenyon M.D. 05/07/24 AMENDED REPORT 05/07/24 1321 PATH REV previously reported as: August Performed By: #### L 501.080 #### [facility] [address] [place], [address] Discharge Instructionon 04-18 Discharge Instruction [facility] Medical Records Department [address] [place] [address] Instructions for Home/Discharge Instructions 05/07/24 1519 MR#: [id number] Acct: [id number] Name: MARIELLA RAMIREZ Rep #: [id number] : 1970 54 From: Taryn Boone MD PCP: Dr. Gerber Pina, DO Status:ADM IN Discharge Instructions Diet Discharge Diet: Low fat / Low cholesterol DC O2, CPAP, BIPAP needs Home O2 Discharge instructions: No Dressing / Incision Discharge Activity: Return to Normal Activity Weight Bearing Status: Weight bearing as tolerated Dressing / Incision Call your doctor if you observe: Fever of 101 or Higher, Shortness of breath, Dizziness, Swelling in the ankles and Chest pain Follow Up Care Test Results: Test results from this visit will be discussed in further detail at your follow-up appointment, if applicable. Discharge Plan Admission Admit Date/Time: 05/03/24 14:36 Primary Reason for Your Visit: acute on chronic anemia Attending Provider: Taryn Boone Primary Care Provider: Gerber Pina Consulting Providers: Rony Milligan; Chayito Maravilla; Chase Logan Instructions Patient Instructions: Anemia Discharge Orders/Prescriptions Prescriptions: New pantoprazole [Protonix] 40 mg tablet,delayed release (DR/EC) 40 mg PO DAILY Qty: 30 2RF ferrous sulfate 325 mg (65 mg iron) tablet,delayed release (DR/EC) 325 mg PO TID Qty: 90 5RF ascorbic acid (vitamin C) [Vitamin C] 500 mg tablet 500 mg PO TID Qty: 90 2RF docusate sodium [Colace] 100 mg capsule 100 mg PO BID Qty: 60 3RF Continued lisinopril 10 mg tablet 10 mg PO DAILY Qty: 90 3RF acetaminophen 325 mg Tablet 650 mg PO Q6H PRN PRN (Reason: Pain 1-10 Or Fever >100.7) Qty: 0 0RF (DME) pen needle, diabetic 29 gauge x 1/2 needle See Rx Instructions .Route Qty: 100 0RF Rx Instructions: As directed Discontinued aspirin 81 mg Tablet,Delayed Release (Dr/Ec) 81 mg PO BREAKFAST Qty: 0 0RF Brilinta 90 mg tablet 90 mg PO BID Qty: 60 12RF Referrals / Follow Up: Gerber Pina DO [Primary Care Provider] - Within 1 Week Rony Milligan DO [Med Staff - Active Staff] - Within 2 Weeks Disposition Disposition (needs filled in before D/C Order can be placed): Home, Self Care 05/07/24 1521 Taryn Boone MD CC: Dr. Gerber Pina DO; Dr. Chayito Maravilla DO; Dr. Chase Logan MD; Rony Milligan DO Signed [facility] MR/PN.Faheem 05-07-2024 MR/PN.[facility] Medical Records Department [address] [place] [address] Progress Note - 05/07/24 1842 MR#: [id number] Acct: [id number] Name: MARIELLA RAMIREZ Rep #: [id number] : 1970 54 From: Rony Friend DO PCP: Dr. Gerber Pina, DO Status:DIS IN Location: MS3 [id number] Subjective Subjective Patient is doing well. She denies any abdominal pain is tolerating a diet. Objective Data Objective Data Vital Signs: Vital Signs Temp Pulse Resp BP Pulse Ox O2 Del Method 98.7 F 107 H 18 121/81 H 100 Room Air 05/07/24 14:48 05/07/24 14:48 05/07/24 14:48 05/07/24 14:48 05/07/24 14:48 05/07/24 14:48 Oxygen Delivery Method Room Air Weight: 155 lb 15.985 oz Body Mass Index (BMI) 24.4 Intake Output: Intake and Output for Last 24 Hours 05/05/24 05/06/24 05/07/24 23:59 23:59 23:59 Intake Total 3130.2 / 3130.2 1550.2 / 1550.2 560.2 / 560.2 Balance 3130.2 / 3130.2 1550.2 / 1550.2 560.2 / 560.2 Lab / Micro Data 05/07/24 06:51 05/07/24 06:51 Labs: Laboratory Results - last 24 hr 05/06/24 21:25: POC Glucose 159 H 05/07/24 06:51: WBC 6.2, RBC 3.40 L, Hgb 6.0 L*, Hct 22.4 L, MCV 65.9 L, MCH 17.6 L, MCHC 26.8 L, R DW Std Deviation 48.5 H, RDW Coeff of Rachael 22.5 H, Plt Count 473 H, MPV 9.6, Immature Gran % (Auto) 1.500 H, Neut % (Auto) 66.1, Lymph % (Auto) 17.1 L, Mcmullen % (Auto) 10.5 H, Eos % (Auto) 4.2, Baso % (Auto) 0.6, Absolute Neuts (auto) 4.1, Absolute Lymphs (auto) 1.06, Nucleated RBC % 1.0, Differential Comment COMMENT, Diff Path Review Reviewed, Anisocytosis 2+, Sodium 134 L, Potassium 4.2, Chloride 105, Carbon Dioxide 23.0, Anion Gap 6, BUN 12, Creatinine 1.06 H, Estim Creat Clear Calc 60.37, Est GFR (MDRD) Af Amer 70, Est GFR (MDRD) Non-Af 58 L, BUN/Creatinine Ratio 11.3, G lucose 299 H, Calcium 8.0 L 05/07/24 07:43: POC Glucose 268 H 05/07/24 11:57: POC Glucose 152 H Rhythm Strip Rhythm Strip: Sinus Rhythm Rate: 92 Ectopy: None Physical Exam Const alert, oriented x3, no apparent distress, average body habitus and well nourished General Appearance: cooperative, comfortable, well kempt and well developed Orientation / Consciousness: awake Exam Limitations: no limitations HEENT normocephalic, head/scalp atraumatic, hearing grossly normal bilaterally, moist oral mucous membranes and oropharynx normal Mouth: oral and palatal mucosa normal Eyes PERRL and EOMs intact bilaterally Eyes Narrative: Markedly pale conjunctiva bilaterally, mild periorbital edema Neck no lymphadenopathy, supple and no JVD Neck Narrative: Lymph Lymphatic: no lymphadenopathy noted and no lymphedema noted Resp normal respiratory effort, normal air movement, no retractions, no use of accessory muscles and clear to auscultation bilaterally Cardio regular rate, regular rhythm, S1 normal heart sound, S2 normal heart sound, no murmurs, no rub, no gallops and no clicks GI normal to inspection, nondistended, normoactive bowel sounds, soft to palpation and non-tender Extremity normal capillary refill, no clubbing, cyanosis or edema and no calf tenderness Extremity Narrative: Trace bilateral lower extremity edema General Extremity: no tenderness to palpation of joints or extremities Skin General Skin Exam: no breakdown Neuro oriented x3, CN's II-XII intact bilaterally, moves all extremities, no focal motor deficits and no sensory deficits noted Sensorium / Orientation: awake and alert Speech: speech normal Motor Exam: strength 5/5 throughout and general weakness Psych thought process normal, cooperative and affect normal Appearance: appropriate Assessment Plan Assessment/Plan (1) Acute anemia: PLAN: Plan #Severe iron deficiency anemia * Hb toay is slightly up to 6, from 5.8 yesterday. Iron studies show severe iron deficiency anemia * EGD did not show any acute pathology and colonoscopy also showed nonbleeding diverticulosis with no stigmata of bleeding * On iron transfusions. Aspirin and Brilinta on hold. * Patient cannot receive blood because history of his weakness. May benefit from capsule endoscopy on outpatient basis. * Has received Epogen during this admission. Also on folate and vitamin B12. Vitamin C added on. * To be set up for outpatient capsule endoscopy Charges/Coding Visit Charges Inpatient E M: 11358 [facility] L3 05/07/24 1846 Cosigner Signature (if applicable): CC: Signed Normal [facility] Basic Metabolic Profile (BMP )on 05-06-2024 BUN/CRE 10.3 RATIO Normal 02-03 [facility] Comment on above: Performed By: #### L 500.4050, L3410.9999, L300.3900 #### [facility] Laboratory [address] [place], [address] CA,Total 8.3 mg/dL Low 8.5-10.1 [facility] Comment on above: Performed By: #### L 500.4050, L3410.9999, L300.3900 #### [facility] Laboratory [address] [place], [address] Chloride [Moles/Vol] 105 mmol/L Normal 98-107 [facility] Comment on above: Performed By: #### L 500.4050, L3410.9999, L300.3900 #### [facility] Laboratory [address] [place], [address] CO2 [Moles/Vol] 23.0 mmol/L Normal 21.0-32.0 [facility] Comment on above: Performed By: #### L 500.4050, L3410.9999, L300.3900 #### [facility] Laboratory [address] [place], [address] Creatinine [Mass/Vol] 1.16 mg/dL High 0.55-1.02 [facility] Comment on above: Result Comment: The validity of the calculated GFR GFRAA in patients over 70 years has not been determined. Clinical correlation is essential. Performed By: #### L 500.4050, L3410.9999, L300.3900 #### [facility] Laboratory [address] [place], [address] ECRCL 55.17 ml/min Normal [facility] Comment on above: Performed By: #### L 500.4050, L3410.9999, L300.3900 #### [facility] Laboratory [address] [place], [address] EST GFR - AA 63 mL/min Normal >60 [facility] Comment on above: Result Comment: Afri can Congolese GFR Calc Performed By: #### L 500.4050, L3410.9999, L300.3900 #### [facility] Laboratory [address] [place], [address] GAP 5 Normal 5-15 [facility] Comment on above: Performed By: #### L 500.4050, L3410.9999, L300.3900 #### [facility] Laboratory [address] [place], [address] GFR/1.73 sq M.predicted among non-blacks MDRD (S/P/Bld) [Vol rate/Area] 52 mL/min/{1.73_m2} Low >60 [facility] Comment on above: Result Comment: Non- GFR Calc Performed By: #### L 500.4050, L3410.9999, L300.3900 #### [facility] Laboratory [address] [place], [address] Glucose [Mass/Vol] 260 mg/dL High 74-106 [facility] Comment on above: Result Comment: Gluc ose result greater than or equal to 200 mg/dL suggests DIABETES MELLITUS per A.D.A. criteria. Performed By: #### L 500.4050, L3410.9999, L300.3900 #### [facility] Laboratory [address] [place], [address] Potassium [Moles/Vol] 3.9 mmol/L Normal 3.5-5.1 [facility] Comment on above: Performed By: #### L 500.4050, L3410.9999, L300.3900 #### [facility] Laboratory [address] [place], [address] Sodium [Moles/Vol] 133 mmol/L Low 136-145 [facility] Comment on above: Performed By: #### L 500.4050, L3410.9999, L300.3900 #### [facility] Laboratory [address] [place], [address] Urea nitrogen [Mass/Vol] 12 mg/dL Normal 7-18 [facility] Comment on above: Performed By: #### L 500.4050, L3410.9999, L300.3900 #### [facility] Laboratory [address] [place], [address] Bedside Glucoseon 05-06-2024 FINGERSTICK GLU 159 mg/dL High 74-106 [facility] Comment on above: Result Comment: MANJINDER GEMENT OF PATIENT CARE PER NURSING PROTOCOL Performed By: #### L 500.4050, L3410.9999, L300.3900 #### [facility] Laboratory [address] [place], [address] FINGERSTICK GLU 104 mg/dL Normal 74-106 [facility] Comment on above: Result Comment: MANJINDER GEMENT OF PATIENT CARE PER NURSING PROTOCOL Performed By: #### L 501.4020, L500.4050, L100.0100 #### [facility] Laboratory [address] [place], [address] FINGERSTICK GLU 97 mg/dL Normal 74-106 [facility] Comment on above: Result Comment: MANJINDER GEMENT OF PATIENT CARE PER NURSING PROTOCOL Performed By: #### L 501.4020, L500.4050, L100.0100 #### [facility] Laboratory [address] [place], [address] FINGERSTICK GLU 233 mg/dL High 74-106 [facility] Comment on above: Result Comment: MANJINDER JELANI OF PATIENT CARE PER NURSING PROTOCOL Performed By: #### L 501.4020, L500.4050, L100.0100 #### [facility] Laboratory [address] [place], [address] CBC W/Diff, Automatedon 04-18 PATH REV Reviewed Normal [facility] Comment on above: Result Comment: THER E IS SEVERE ANEMIA WITH ANISOPOKILOCYTOSIS. Clinical correlation necessary. Mariam Garcia MD 05/06/2024 AMENDED REPORT 05/06/24 1611 PATH REV previously reported as: Buffy crowe Performed By: #### L 500.4050, L3410.9999, L300.3900 #### [facility] Laboratory [address] [place], [address] Result Comment: LEUK OPENIA SEVERE Microcytic anemia. Thrombocytosis. Clinical correlation necessary. Janes Kenyon M.D. 05/06/24 LEUKOPENIA SEVERE Microcytic anemia. Thrombocytosis. Clinical correlation necessary. Janes Kenyon M.D. 05/06/24 AMENDED REPORT 05/06/24 1600 PATH REV previously reported as: Buffy amrita MR/PN.GIon 05-06-2024 MR/PN.GI [facility] Medical Records Department [address] [place] [address] Progress Note - GI 05/06/24 1627 MR#: [id number] Acct: [id number] Name: MARIELLA RAMIREZ Rep #: [id number] : 1970 54 From: Rony Friend DO PCP: Dr. Gerber Pina, DO Status:ADM IN [facility] Subjective Subjective Patient is status post EGD and colonoscopy without any signs or symptoms of GI bleeding. She did not admit to any menstrual bleeding or any blood in her urine. She did not see any blood coming from her GI tract. Objective Data Objective Data Vital Signs: Vital Signs Temp Pulse Resp BP Pulse Ox O2 Del Method 98.5 F 100 18 132/83 H 100 Room Air 05/06/24 15:00 05/06/24 15:00 05/06/24 15:00 05/06/24 15:00 05/06/24 15:00 05/06/24 15:00 Oxygen Delivery Method Room Air Weight: 155 lb 15.985 oz Body Mass Index (BMI) 24.4 Intake Output: Intake and Output for Last 24 Hours 05/04/24 05/05/24 05/06/24 23:59 23:59 23:59 Intake Total 1909 3130.2 / 3130.2 990.2 / 990.2 Balance 1909 3130.2 / 3130.2 990.2 / 990.2 Lab / Micro Data 05/06/24 04:16 05/06/24 04:16 Labs: Laboratory Results - last 24 hr 05/03/24 14:43: Crossmatch See Detail 05/03/24 14:43: Crossmatch See Detail 05/04/24 05:08: Diff Path Review Reviewed 05/05/24 17:21: POC Glucose 294 H 05/05/24 23:22: POC Glucose 424 H 05/06/24 04:16: WBC 5.0, RBC 3.41 L, Hgb 5.8 L*, Hct 22.1 L, MCV 64.8 L, MCH 17.0 L, MCHC 26.2 L, R DW Std Deviation 49.5 H, RDW Coeff of Rachael 22.3 H, Plt Count 469 H, MPV 9.3, Immature Gran % (Auto) 1.000 H, Neut % (Auto) 64.9, Lymph % (Auto) 18.9 L, Mcmullen % (Auto) 11.2 H, Eos % (Auto) 3.4, Baso % (Auto) 0.6, Absolute Neuts (auto) 3.3, Absolute Lymphs (auto) 0.95, Nucleated RBC % 0.4, Diff Path Review Reviewed, Platelet Estimate MOD INC, Hypochromasia 2+, Anisocytosis 2+, Macrocytosis 1+, Ovalocytes 1+, Sodium 133 L, Potassium 3.9, Chloride 105, Carbon Dioxide 23.0, Anion Gap 5, BUN 12, Creatinine 1.16 H, Estim Creat Clear Calc 55.17, Est GFR (MDRD) Af Amer 63, Est GFR (MDRD) Non-Af 52 L, BUN/Creatinine Ratio 10.3, Glucose 260 H, Calcium 8.3 L 05/06/24 06:42: POC Glucose 233 H 05/06/24 11:22: POC Glucose 97 05/06/24 15:55: POC Glucose 104 Rhythm Strip Rhythm Strip: Sinus Rhythm Rate: 92 Ectopy: None Physical Exam Const alert, oriented x3, no apparent distress and well nourished General Appearance: cooperative and well developed HEENT normocephalic, head/scalp atraumatic, moist oral mucous membranes and oropharynx normal Eyes PERRL and EOMs intact bilaterally Neck no lymphadenopathy, supple and no JVD Lymph Lymphatic: no lymphadenopathy noted and no lymphedema noted Resp normal respiratory effort, normal air movement and clear to auscultation bilaterally Cardio regular rate, regular rhythm, S1 normal heart sound and S2 normal heart sound GI normal to inspection, nondistended, normoactive bowel sounds and soft to palpation Extremity normal capillary refill, no clubbing, cyanosis or edema and no calf tenderness General Extremity: no tenderness to palpation of joints or extremities Skin General Skin Exam: no breakdown Neuro CN's II-XII intact bilaterally, no focal motor deficits and no sensory deficits noted Motor Exam: strength 5/5 throughout and general weakness Psych thought process normal and cooperative Appearance: appropriate Assessment Plan Assessment/Plan (1) Acute anemia: (2) Thrombocytosis: (3) Hyponatremia: (4) Hyperglycemia: PLAN: Plan 54-year-old with history of CAD status post PTCA with stents with severe iron deficiency anemia -Suspected GI loss. Patient will undergo an upper endoscopy to evaluate upper GI tract with push enteroscopy. If this is negative then she will need to undergo colonoscopy. -Patient reports she had a colonoscopy about 2 years ago that she states was unremarkable -Suspect this has been a slow drop in hemoglobin over time given her relative asymptomatic state -Patient declines transfusions due to orthodoxy-Anabaptism -Agree with IV iron 200 mg daily x 3 days -Also recommending : Epoegen 40,000 units IV or subcutaneous daily, , then change dosing to 40,000 units weekly Iron: 200 mg iron sucrose intravenous daily for 10 days minimum and then consider conversion to oral iron supplemental on Vitamin C: 500 mg TID, except in renal failure (qD) Folate: 1 mg PO or IV qD Vitamin B12: consider IV vs. oral supplemental 05/05/2024-she had a normal upper endoscopy yesterday. She is for colonoscopy today. All questions and answered prior to the procedure. 05/06/2024. Hemoglobin is 5.8 which is down from 6.9. She received 20,000 units of IV Epogen. She has been on 200 mg IV of iron daily. She was also given folate 1 mg IV. Along with being given B12. I would add vitamin C 500 mg p.o. 3 times da (more content not included)... Normal [facility] Basic Metabolic Profile (BMP )on 05-05-2024 BUN/CRE 11.9 RATIO Normal - [facility] Comment on above: Performed By: #### L 500.4050, L3410.9999, L300.3900 #### [facility] Laboratory [address] [place], [address] CA,Total 8.3 mg/dL Low 8.5-10.1 [facility] Comment on above: Performed By: #### L 500.4050, L3410.9999, L300.3900 #### [facility] Laboratory [address] [place], [address] Chloride [Moles/Vol] 104 mmol/L Normal 98-107 [facility] Comment on above: Performed By: #### L 500.4050, L3410.9999, L300.3900 #### [facility] Laboratory [address] [place], [address] CO2 [Moles/Vol] 26.0 mmol/L Normal 21.0-32.0 [facility] Comment on above: Performed By: #### L 500.4050, L3410.9999, L300.3900 #### [facility] Laboratory [address] [place], [address] Creatinine [Mass/Vol] 0.92 mg/dL Normal 0.55-1.02 [facility] Comment on above: Result Comment: The validity of the calculated GFR GFRAA in patients over 70 years has not been determined. Clinical correlation is essential. Performed By: #### L 500.4050, L3410.9999, L300.3900 #### [facility] Laboratory [address] [place], [address] ECRCL 69.56 ml/min Normal [facility] Comment on above: Performed By: #### L 500.4050, L3410.9999, L300.3900 #### [facility] Laboratory [address] [place], [address] EST GFR - AA 82 mL/min Normal >60 [facility] Comment on above: Result Comment: Afri can Congolese GFR Calc Performed By: #### L 500.4050, L3410.9999, L300.3900 #### [facility] Laboratory [address] [place], [address] GAP 4 Low 5-15 [facility] Comment on above: Performed By: #### L 500.4050, L3410.9999, L300.3900 #### [facility] Laboratory [address] [place], [address] GFR/1.73 sq M.predicted among non-blacks MDRD (S/P/Bld) [Vol rate/Area] 68 mL/min/{1.73_m2} Normal >60 [facility] Comment on above: Result Comment: Non- GFR Calc Performed By: #### L 500.4050, L3410.9999, L300.3900 #### [facility] Laboratory [address] [place], [address] Glucose [Mass/Vol] 155 mg/dL High 74-106 [facility] Comment on above: Result Comment: Fast ing Glucose result greater than or equal to 126 mg/dL suggests DIABETES MELLITUS per A.D.A. criteria. Performed By: #### L 500.4050, L3410.9999, L300.3900 #### [facility] Laboratory [address] [place], [address] Potassium [Moles/Vol] 3.9 mmol/L Normal 3.5-5.1 [facility] Comment on above: Performed By: #### L 500.4050, L3410.9999, L300.3900 #### [facility] Laboratory [address] [place], [address] Sodium [Moles/Vol] 134 mmol/L Low 136-145 [facility] Comment on above: Performed By: #### L 500.4050, L3410.9999, L300.3900 #### [facility] Laboratory [address] [place], [address] Urea nitrogen [Mass/Vol] 11 mg/dL Normal 7-18 [facility] Comment on above: Performed By: #### L 500.4050, L3410.9999, L300.3900 #### [facility] Laboratory [address] [place], [address] Bedside Glucoseon 05-05-2024 FINGERSTICK GLU 424 mg/dL High 74-106 [facility] Comment on above: Result Comment: MANJINDER GEMENT OF PATIENT CARE PER NURSING PROTOCOL Performed By: #### L 500.4050, L3410.9999, L300.3900 #### [facility] Laboratory [address] [place], [address] FINGERSTICK GLU 294 mg/dL High 74-106 [facility] Comment on above: Result Comment: MANJINDER GEMENT OF PATIENT CARE PER NURSING PROTOCOL Performed By: #### L 500.4050, L3410.9999, L300.3900 #### [facility] Laboratory [address] [place], [address] FINGERSTICK GLU 260 mg/dL High 74-106 [facility] Comment on above: Result Comment: MANJINDER GEMENT OF PATIENT CARE PER NURSING PROTOCOL Performed By: #### L 500.4050, L3410.9999, L300.3900 #### [facility] Laboratory [address] [place], [address] FINGERSTICK GLU 100 mg/dL Normal 74-106 [facility] Comment on above: Result Comment: MANJINDER GEMENT OF PATIENT CARE PER NURSING PROTOCOL Performed By: #### L 500.4050, L3410.9999, L300.3900 #### [facility] [address] [place], [address] FINGERSTICK GLU 124 mg/dL High 74-106 [facility] Comment on above: Result Comment: MANJINDER GEMENT OF PATIENT CARE PER NURSING PROTOCOL Performed By: #### L 500.4050, L3410.9999, L300.3900 #### [facility] Laboratory [address] [place], [address] CBC W/Diff, Automatedon 04-17 Anisocytosis Ql (Bld) 2+ Normal [facility] Comment on above: Performed By: #### L 500.4050, L3410.9999, L300.3900 #### [facility] Laboratory [address] [place], [address] HYPOCHROMASIA 3+ Normal [facility] Comment on above: Performed By: #### L 500.4050, L3410.9999, L300.3900 #### [facility] Laboratory [address] [place], [address] Colonoscopy Reporton 025 Colonoscopy Report [facility] Medical Records Department [address] [place] [address] Colonoscopy Report MR#: [id number] Acct: [id number] Name: MARIELLA RAMIREZ Rep #: [id number] : 1970 54 From: Rony Friend DO PCP: Dr. Gerber Pina, DO Status:ADM IN Patient Name: Mariella Ramirez Procedure Date: 05/05/2024 8:52 AM Date of : 1970 Age: 54 Procedure: Colonoscopy Indications: Iron deficiency anemia Providers: Rony Milligan DO Medicines: Monitored Anesthesia Care Patient Profile: This is a 54 year old female. Refer to note in patient chart for documentation of history and physical. Last Colonoscopy: within the past 3 years. Complications: No immediate complications. Procedure: Pre-Anesthesia Assessment: - Prior to the procedure, a History and Physical was performed, and patient medications and allergies were reviewed. The patient is competent. The risks and benefits of the procedure and the sedation options and risks were discussed with the patient. All questions were answered and informed consent was obtained. Patient identification and proposed procedure were verified by the physician in the pre-procedure area. Mental Status Examination: alert and oriented. Airway Examination: normal oropharyngeal airway and neck mobility. Respiratory Examination: clear to auscultation. CV Examination: normal. Prophylactic Antibiotics: The patient does not require prophylactic antibiotics. Prior Anticoagulants: The patient has taken no anticoagulant or antiplatelet agents. ASA Grade Assessment: II - A patient with mild systemic disease. After reviewing the risks and benefits, the patient was deemed in satisfactory condition to undergo the procedure. The anesthesia plan was to use monitored anesthesia care (MAC). Immediately prior to administration of medications, the patient was re-assessed for adequacy to receive sedatives. The heart rate, respiratory rate, oxygen saturations, blood pressure, adequacy of pulmonary ventilation, and response to care were monitored throughout the procedure. The physical status of the patient was re-assessed after the procedure. After I obtained informed consent, the scope was passed under direct vision. Throughout the procedure, the patient's blood pressure, pulse, and oxygen saturations were monitored continuously. The Colonoscope was introduced through the anus and advanced to the cecum, identified by appendiceal orifice and ileocecal valve. The colonoscopy was performed without difficulty. The patient tolerated the procedure well. The quality of the bowel preparation was adequate. The ileocecal valve, appendiceal orifice, and rectum were photographed. Scope In: 9:19:23 AM Scope Withdrawal Time 0 hours 7 minutes 25 seconds Scope Out: 9:32:43 AM Total Procedure Duration Time 0 hours 13 minutes 20 seconds Findings: The perianal and digital rectal examinations were normal. A few small-mouthed diverticula were found in the recto-sigmoid colon and sigmoid colon. The exam was otherwise without abnormality on direct and retroflexion views. Impression: - Diverticulosis in the recto-sigmoid colon and in the sigmoid colon. - The examination was otherwise normal on direct and retroflexion views. - No specimens collected. Recommendation: - [facility]. - Resume regular diet. - Continue present medications. - Repeat colonoscopy in 10 years for screening purposes. Procedure Code(s): --- Professional --- 51274, Colonoscopy, flexible; diagnostic, including collection of specimen(s) by brushing or washing, when performed (separate procedure) CPT copyright 2021 [employer]. All rights reserved. The codes documented in this report are preliminary and upon leather stitcher review may be revised to meet current compliance requirements. Rony Milligan DO 05/05/2024 9:39:30 AM This report has been signed electronically. Number of Addenda: 0 Note Initiated On: 05/05/2024 8:52 AM 05/05/24 0939 Date Rony Milligan DO Cosigner Signature: Date (if indicated) CC: Dr. Gerber Pina DO; oRny Milligan DO Date Dictated: 05/05/24 0852 Date Transcribed: Frequency Checker: ANIYAH Signed Normal [facility] L3410.9999on 05-05-2024 [facility] COM[facility] Normal . [facility] Comment on above: Order Comment: [id number] 3 A1C Result Comment: Test Ordered: [id number] Hemoglobin A1c Hemoglobin A1c >15.5 [H ] % Reference Range: 4.8-5.6 Verified by repeat analysis Prediabetes: 5.7 - 6.4 Diabetes: >6.4 Glycemic control for adults with diabetes: <7.0 Performed at: - [facility] [address] [place], [place] [id number] Refueling Ramp Attendant: Leland Barney PhD, Phone: [phone] Performed By: #### L 923.9561, C4539.8785, U108.5068 #### [facility] Laboratory [address] [place], [address] MR/PN.Faheem 05-05-2024 MR/PN.BERNA [facility] Medical Records Department [address] [place] [address] Progress Note - 05/05/24 0853 MR#: [id number] Acct: [id number] Name: MARIELLA RAMIREZ Rep #: [id number] : 1970 54 From: Rony Friend DO PCP: Dr. Gerber Pina, DO Status:ADM IN Location: [address] Subjective Subjective Patient is for colonoscopy today. She tolerated a prep without any problems. Her hemoglobin is up to 6.9. Objective Data Objective Data Vital Signs: Vital Signs Temp Pulse Resp BP Pulse Ox O2 Del Method 98 F 88 16 105/73 99 Room Air 05/05/24 08:09 05/05/24 08:09 05/05/24 08:09 05/05/24 08:09 05/05/24 08:09 05/05/24 08:15 Oxygen Delivery Method Room Air Weight: 156 lb Body Mass Index (BMI) 24.4 Intake Output: Intake and Output for Last 24 Hours 05/03/24 05/04/24 05/05/24 23:59 23:59 23:59 Intake Total 110 / 110 1909 Balance 110 / 110 1909 Lab / Micro Data 05/05/24 03:14 05/05/24 03:14 Labs: Laboratory Results - last 24 hr 05/03/24 14:43: Crossmatch See Detail 05/04/24 05:08: Diff Path Review May amrita, Hemoglobin A1c Cancelled, Miscellaneous Test COMMENT 05/04/24 07:13: POC Glucose 198 H 05/04/24 09:26: POC Glucose 90 05/04/24 11:17: POC Glucose 79 05/04/24 12:50: POC Glucose 197 H 05/04/24 16:39: POC Glucose 98 05/04/24 20:46: POC Glucose 91 05/05/24 03:14: WBC 4.3 L, RBC 4.11 L, Hgb 6.9 L, Hct 25.7 L, MCV 62.5 L, MCH 16.8 L, MCHC 26.8 L, R DW Std Deviation 46.7 H, RDW Coeff of Rachael 21.7 H, Plt Count 549 H, MPV 9.0, Immature Gran % (Auto) 0.200, Neut % (Auto) 62.2, Lymph % (Auto) 21.6, Mcmullen % (Auto) 9.6, Eos % (Auto) 5.2 H, Baso % (Auto) 1.2 H, Absolute Neuts (auto) 2.7, Absolute Lymphs (auto) 0.92, Nucleated RBC % 0.5, Hypochromasia 3+, Anisocytosis 2+, Sodium 134 L, Potassium 3.9, Chloride 104, Carbon Dioxide 26.0, Anion Gap 4 L, BUN 11, Creatinine 0.92, Estim Creat Clear Calc 69.56, Est GFR (MDRD) Af Amer 82, Est GFR (MDRD) Non-Af 68, BUN/Creatinine Ratio 11.9, Glucose 155 H, Calcium 8.3 L 05/05/24 06:17: POC Glucose 124 H Rhythm Strip Rhythm Strip: Sinus Rhythm Rate: 92 Ectopy: None Physical Exam Narrative General: Alert, Oriented x3, Cooperative, No apparent distress HEENT: Atraumatic, PERRLA, EOMI, Normocephalic Oral: Moist Mucosa Neck: Supple, No JVD Lungs: Diminished, Normal air movement, No rhonchi, No wheeze, No rales Cardiovascular: Tachycardic, Regular Rhythm, Normal S1, Normal S2, No murmurs Abdomen: Soft, Non Tender, Non-Distended, No Hepato-splenomegaly Extremities: No edema, Capillary Refill Less than 3 Seconds Skin: No rashes, No breakdown Musculoskeletal: No Tenderness to Palpation of Joints or Extremities Neurological: No focal neurological deficits, Motor Exam 5/5 strength throughout, Sensory exam intact to light touch and pain Psych/Mental Status: Normal Affect, Appropriate Assessment Plan Assessment/Plan (1) Acute anemia: (2) Thrombocytosis: (3) Hyponatremia: (4) Hyperglycemia: PLAN: Plan 54-year-old with history of CAD status post PTCA with stents with severe iron deficiency anemia -Suspected GI loss. Patient will undergo an upper endoscopy to evaluate upper GI tract with push enteroscopy. If this is negative then she will need to undergo colonoscopy. -Patient reports she had a colonoscopy about 2 years ago that she states was unremarkable -Suspect this has been a slow drop in hemoglobin over time given her relative asymptomatic state -Patient declines transfusions due to orthodoxy-Anabaptism -Agree with IV iron 200 mg daily x 3 days -Also recommending : Epoegen 40,000 units IV or subcutaneous daily, , then change dosing to 40,000 units weekly Iron: 200 mg iron sucrose intravenous daily for 10 days minimum and then consider conversion to oral iron supplemental on Vitamin C: 500 mg TID, except in renal failure (qD) Folate: 1 mg PO or IV qD Vitamin B12: consider IV vs. oral supplemental 05/05/2024-she had a normal upper endoscopy yesterday. She is for colonoscopy today. All questions and answered prior to the procedure. Charges/Coding Visit Charges Inpatient E M: 46010 Subs Hosp L3 05/05/24 0871 Cosigner Signature (if applicable): CC: Signed Normal [facility] MR/POSTOP.Kendra 05-05-2024 MR/POSTOP.[facility] Medical Records Department [address] [place] [address] Anesthesia Postop Eval I 05/05/24 0946 MR#: [id number] Acct: [id number] Name: MARIELLA RAMIREZ Rep #: [id number] : 1970 54 From: Ok Augustin MD PCP: Dr. Gerber Pina, DO Status:ADM IN Y Race: AA Location: [place]3 WI528-3 Anesthesia: Postop Eval I Current Vital Signs Temperature: 99 F Pulse Rate: 90 Blood Pressure: 117/74 Respiratory Rate: 16 Pulse Ox: 100 Oxygen Delivery Method: Room Air Assessment Airway patent: Yes Spontaneous unlabored respirations: Yes Mental status: Awake and Calm nausea: No Vomiting: No Anesthesia Complication: No Fluid Hydration Crystalloid volume administer (ml): 10 Total IV fluid infused: 10 Progress Note Anesthesia document: Postop Eval 1 completed: Yes 05/05/24 0948 Date Ok Augustin MD Cosigner Signature: Date CC: Signed Normal [facility] MR/[id number] 05-05-2024 MR/POSTOPAN2 [facility] Medical Records Department [address] [place] [address] Anesthesia Postop Eval II 05/05/24 1344 MR#: [id number] Acct: [id number] Name: MARIELLA RAMIREZ Rep #: [id number] : 1970 54 From: Ok Augustin MD PCP: Dr. Gerber Pina, DO Status:ADM IN Y Race: AA [place] [facility] [id number] Anesthesia Postop Eval I Sum Postop Eval Completion status Anesthesia document: Postop Eval 1 completed: Yes Anesthesia Postop Eval I Summary Anesthesia Postop Eval I Summary: Anesthesia Postop Eval I: Assessment Summary Airway patent Yes 05/05/24 09:48 Spontaneous unlabored Yes 05/05/24 09:48 respirations Mental status Awake,Calm 05/05/24 09:48 nausea No 05/05/24 09:48 Vomiting No 05/05/24 09:48 Anesthesia Postop Eval I: Fluid Summary Crystalloid volume administer 10 05/05/24 09:48 (ml) Colloids volume administered ( ml) Blood Product volume administered (ml) Total IV fluid infused 10 05/05/24 09:48 Anesthesia Postop Eval I: Summary Notes Anesthesia Complication No 05/05/24 09:48 Anesthesia Complication Comment: Post-operative progress note Anesthesia: Postop Eval II Evaluation Mental status: Awake and Calm Pain Level: 0 nausea: No Vomiting: No Complications Anesthesia Complication: No 05/05/24 1345 Date Ok Flores Signature: Date CC: Signed Normal [facility] Bedside Glucoseon 05-04-2024 FINGERSTICK GLU 91 mg/dL Normal 74-106 [facility] Comment on above: Result Comment: MANJINDER GEMENT OF PATIENT CARE PER NURSING PROTOCOL Performed By: #### L 501.080 #### [facility] Laboratory [address] [place], [address] FINGERSTICK GLU 98 mg/dL Normal 74-106 [facility] Comment on above: Result Comment: MANJINDER GEMENT OF PATIENT CARE PER NURSING PROTOCOL Performed By: #### L 500.4050, L3410.9999, L300.3900 #### [facility] [address] [place], [address] FINGERSTICK GLU 197 mg/dL High 74-106 [facility] Comment on above: Result Comment: MANJINDER GEMENT OF PATIENT CARE PER NURSING PROTOCOL Performed By: #### L 500.4050, L3410.9999, L300.3900 #### [facility] [address] [place], [address] FINGERSTICK GLU 79 mg/dL Normal 74-106 [facility] Comment on above: Result Comment: MANJINDER GEMENT OF PATIENT CARE PER NURSING PROTOCOL Performed By: #### L 501.080 #### [facility] [address] [place], [address] FINGERSTICK GLU 198 mg/dL High 74-106 [facility] Comment on above: Result Comment: MANJINDER GEMENT OF PATIENT CARE PER NURSING PROTOCOL Performed By: #### L 501.080 #### [facility] [address] [place], [address] FINGERSTICK GLU 90 mg/dL Normal 74-106 [facility] Comment on above: Result Comment: MANJINDER PALOMARES OF PATIENT CARE PER NURSING PROTOCOL Performed By: #### L 500.4050, L3410.9999, L300.3900 #### [facility] Laboratory [address] [place], [address] Comprehensive Metabolic Prof ilon 05-04-2024 Albumin [Mass/Vol] 2.0 g/dL Low 3.2-5.0 [facility] Comment on above: Performed By: #### L 500.4050, L3410.9999, L300.3900 #### [facility] [address] [place], [address] Albumin/Globulin [Mass ratio] 0.6 {ratio} Low 0.9-2.4 [facility] Comment on above: Performed By: #### L 500.4050, L3410.9999, L300.3900 #### [facility] [address] [place], [address] ALK P 82 U/L Normal 45-117 [facility] Comment on above: Performed By: #### L 500.4050, L3410.9999, L300.3900 #### [facility] [address] [place], [address] ALT [Catalytic activity/Vol] 34 U/L Normal 13-56 [facility] Comment on above: Performed By: #### L 500.4050, L3410.9999, L300.3900 #### [facility] [address] [place], [address] AST [Catalytic activity/Vol] 18 U/L Normal 15-37 [facility] Comment on above: Performed By: #### L 500.4050, L3410.9999, L300.3900 #### [facility] [address] [place], [address] Bilirubin [Mass/Vol] 0.20 mg/dL Normal 0.20-1.00 [facility] Comment on above: Result Comment: For patients on eltrombopag therapy, use of Dimension Rollins TBIL is not recommended. Performed By: #### L 500.4050, L3410.9999, L300.3900 #### [facility] [address] [place], [address] BUN/CRE 18.6 RATIO Normal 10-20 [facility] Comment on above: Performed By: #### L 500.4050, L3410.9999, L300.3900 #### [facility] [address] [place], [address] CA,Total 8.1 mg/dL Low 8.5-10.1 [facility] Comment on above: Performed By: #### L 500.4050, L3410.9999, L300.3900 #### [facility] [address] [place], [address] Chloride [Moles/Vol] 100 mmol/L Normal 98-107 [facility] Comment on above: Performed By: #### L 500.4050, L3410.9999, L300.3900 #### [facility] [address] [place], [address] CO2 [Moles/Vol] 25.0 mmol/L Normal 21.0-32.0 [facility] Comment on above: Performed By: #### L 500.4050, L3410.9999, L300.3900 #### [facility] [address] [place], [address] Creatinine [Mass/Vol] 1.02 mg/dL Normal 0.55-1.02 [facility] Comment on above: Result Comment: The validity of the calculated GFR GFRAA in patients over 70 years has not been determined. Clinical correlation is essential. Performed By: #### L 500.4050, L3410.9999, L300.3900 #### [facility] [address] [place], [address] ECRCL 62.74 ml/min Normal [facility] Comment on above: Performed By: #### L 500.4050, L3410.9999, L300.3900 #### [facility] [address] [place], [address] EST GFR - AA 73 mL/min Normal >60 [facility] Comment on above: Result Comment: Afri can Cong[place]ese GFR Calc Performed By: #### L 500.4050, L3410.9999, L300.3900 #### [facility] [address] [place], [address] GAP 5 Normal 5-15 [facility] Comment on above: Performed By: #### L 500.4050, L3410.9999, L300.3900 #### [facility] [address] [place], [address] GFR/1.73 sq M.predicted among non-blacks MDRD (S/P/Bld) [Vol rate/Area] 61 mL/min/{1.73_m2} Normal >60 [facility] Comment on above: Result Comment: Non- GFR Calc Performed By: #### L 500.4050, L3410.9999, L300.3900 #### [facility] [address] [place], [address] Globulin (S) [Mass/Vol] 3.5 g/dL Normal 2.2-4.2 [facility] Comment on above: Performed By: #### L 500.4050, L3410.9999, L300.3900 #### [facility] [address] [place], [address] Glucose [Mass/Vol] 302 mg/dL High 74-106 [facility] Comment on above: Result Comment: Gluc ose result greater than or equal to 200 mg/dL suggests DIABETES MELLITUS per A.D.A. criteria. Performed By: #### L 500.4050, L3410.9999, L300.3900 #### [facility] [address] [place], [address] Potassium [Moles/Vol] 3.8 mmol/L Normal 3.5-5.1 [facility] Comment on above: Performed By: #### L 500.4050, L3410.9999, L300.3900 #### [facility] [address] [place], [address] Sodium [Moles/Vol] 129 mmol/L Low 136-145 [facility] Comment on above: Performed By: #### L 500.4050, L3410.9999, L300.3900 #### [facility] [address] [place], [address] T PROT 5.5 g/dL Low 6.4-8.2 [facility] Comment on above: Performed By: #### L 500.4050, L3410.9999, L300.3900 #### [facility] [address] [place], [address] Urea nitrogen [Mass/Vol] 19 mg/dL High 7-18 [facility] Comment on above: Performed By: #### L 500.4050, L3410.9999, L300.3900 #### [facility] [address] [place], [address] EGD Reporton 05-04-2024 EGD Report [facility] Medical Records Department [address] [place] [address] EGD Report MR#: [id number] Acct: [id number] Name: MARIELLA RAMIREZ Rep #: [id number] : 1970 54 From: Rony Milligan DO PCP: Dr. Gerber Pina DO Status:ADM IN Patient Name: Mariella Ramirez Procedure Date: 05/04/2024 9:13 AM Date of : 1970 Age: 54 Procedure: Upper GI endoscopy Indications: Iron deficiency anemia Providers: Rony Milligan DO Medicines: Monitored Anesthesia Care Patient Profile: This is a 54 year old female. Refer to note in patient chart for documentation of history and physical. Patient has symptoms. Complications: No immediate complications. Procedure: Pre-Anesthesia Assessment: - Prior to the procedure, a History and Physical was performed, and patient medications and allergies were reviewed. The patient is competent. The risks and benefits of the procedure and the sedation options and risks were discussed with the patient. All questions were answered and informed consent was obtained. Patient identification and proposed procedure were verified by the physician in the pre-procedure area. Mental Status Examination: alert and oriented. Airway Examination: normal oropharyngeal airway and neck mobility. Respiratory Examination: clear to auscultation. CV Examination: normal. Prophylactic Antibiotics: The patient does not require prophylactic antibiotics. Prior Anticoagulants: The patient has taken no anticoagulant or antiplatelet agents except for NSAID medication. ASA Grade Assessment: II - A patient with mild systemic disease. After reviewing the risks and benefits, the patient was deemed in satisfactory condition to undergo the procedure. The anesthesia plan was to use monitored anesthesia care (MAC). Immediately prior to administration of medications, the patient was re-assessed for adequacy to receive sedatives. The heart rate, respiratory rate, oxygen saturations, blood pressure, adequacy of pulmonary ventilation, and response to care were monitored throughout the procedure. The physical status of the patient was re-assessed after the procedure. After obtaining informed consent, the endoscope was passed under direct vision. Throughout the procedure, the patient's blood pressure, pulse, and oxygen saturations were monitored continuously. The Colonoscope was introduced through the mouth, and advanced to the jejunum. Small bowel enteroscopy was deemed necessary. The upper GI endoscopy was accomplished without difficulty. The patient tolerated the procedure well. Scope In: 9:57:02 AM Scope Out: 10:01:34 AM Total Procedure Duration Time 0 hours 4 minutes 32 seconds Findings: The examined esophagus was normal. A medium-sized hiatal hernia was present. No other significant abnormalities were identified in a careful examination of the stomach. The examined duodenum was normal. The examined jejunum was normal. Impression: - Normal esophagus. - Medium-sized hiatal hernia. - Normal examined duodenum. - Normal examined jejunum. - No specimens collected. Recommendation: - [facility]. - Full liquid diet. - Continue present medications. Procedure Code(s): --- Professional --- 78186, Small intestinal endoscopy, enteroscopy beyond second portion of duodenum, not including ileum; diagnostic, including collection of specimen(s) by brushing or washing, when performed (separate procedure) CPT copyright 2021 [employer]. All rights reserved. The codes documented in this report are preliminary and upon leather stitcher review may be revised to meet current compliance requirements. Rony Milligan DO 05/04/2024 10:08:44 AM This report has been signed electronically. Number of Addenda: 0 Note Initiated On: 05/04/2024 9:13 AM 05/04/24 1009 Date Rony Milligan DO Cosigner Signature: Date (if indicated) CC: Dr. Gerber Pina DO; Rony Milligan DO Date Dictated: 05/04/24912 Date Transcribed: Frequency Checker: RF Signed Normal [facility] HH, Hemoglobin AND Hematocri ton 05-04-2024 HCT Normal 37-47 [facility] Comment on above: Result Comment: Ladi koehler via OM: Ordered Performed By: #### L 501.4020, L500.4050, L100.0100 #### [facility] Laboratory [address] [place], [address] HGB Normal 12.0-15.0 [facility] Comment on above: Result Comment: Ladi koehler via OM: Ordered Performed By: #### L 501.4020, L500.4050, L100.0100 #### [facility] Laboratory [address] [place], [place], [address] MR/PN.Faheem 05-04-2024 MR/PN.[facility] Medical Records Department [address] [facility] [place] [address] Progress Note - GI 05/04/24 1040 MR#: [id number] Acct: [id number] Name: MARIELLA RAMIREZ Rep #: [id number] : 1970 54 From: Rony Friend DO PCP: Dr. Gerber Pina, DO Status:ADM IN Location: [place] [id number] Subjective Subjective Patient underwent push enteroscopy for severe iron deficiency anemia and no source of GI blood loss was seen. She agreed to undergo colonoscopy tomorrow. Objective Data Objective Data Vital Signs: Vital Signs Temp Pulse Resp BP Pulse Ox O2 Del Method 98.8 F 97 16 123/80 H 99 Room Air 05/04/24 10:25 05/04/24 10:25 05/04/24 10:25 05/04/24 10:25 05/04/24 10:25 05/04/24 10:25 Oxygen Delivery Method Room Air Weight: 156 lb Body Mass Index (BMI) 24.4 Intake Output: Intake and Output for Last 24 Hours 05/02/24 05/03/24 05/04/24 23:59 23:59 23:59 Intake Total 110 / 110 270 / 270 Balance 110 / 110 270 / 270 Lab / Micro Data 05/04/24 05:08 05/04/24 05:08 Labs: Laboratory Results - last 24 hr 05/03/24 10:10: WBC 3.9 L, RBC 3.94 L, Hgb 6.7 L, Hct 24.5 L, MCV 62.2 L, MCH 17.0 L, MCHC 27.3 L, R DW Std Deviation 46.2 H, RDW Coeff of Rachael 21.4 H, Plt Count 603 H, MPV 9.7, Immature Gran % (Auto) 0.300, Neut % (Auto) 70.6 H, Lymph % (Auto) 16.2 L, Mcmullen % (Auto) 10.3 H, Eos % (Auto) 2.1, Baso % (Auto) 0.5, Absolute Neuts (auto) 2.8, Absolute Lymphs (auto) 0.63 L, Nucleated RBC % 0, Immature Plt Fraction 2.9, Hypochromasia 2+, Anisocytosis 2+, Ovalocytes 1+, Retic Count 1.66 H, Immature Retic Fraction 21.60 H, Retic Hgb Equivalent 16.5 L, Sodium 130 L, Potassium 3.9, Chloride 96 L, Carbon Dioxide 26.0, Anion Gap 9, BUN 22 H, Creatinine 1.01, Estim Creat Clear Calc 63.36, Est GFR (MDRD) Af Amer 74, Est GFR (MDRD) Non-Af 61, BUN/Creatinine Ratio 21.8 H, Glucose 560 H*, Calcium 8.9, Iron 16 L, TIBC 474 H, Iron Saturation 3.4 L, Ferritin 5 L, Total Bilirubin 0.40, AST 29, ALT 45, Alkaline Phosphatase 113, Troponin I High Sens 41, Total Protein 6.8, Albumin 2.6 L, Globulin 4.2, Albumin/Globulin Ratio 0.6 L 05/03/24 14:43: Blood Type AB POSITIVE, Antibody Screen NEGATIVE, Crossmatch See Detail 05/03/24 14:43: Crossmatch See Detail 05/03/24 17:30: POC Glucose 336 H 05/03/24 18:05: Hgb 6.9 L, Hct 25.3 L 05/03/24 21:35: POC Glucose 385 H 05/03/24 23:10: Urine Test Negative 05/04/24 05:08: WBC 4.0 L, RBC 3.46 L, Hgb 5.8 L*, Hct 21.1 L, MCV 61.0 L, MCH 16.8 L, MCHC 27.5 L, RDW Std Deviation 45.0 H, RDW Coeff of Rachael 21.2 H, Plt Count 498 H, MPV 9.2, Immature Gran % (Auto) 0.000, Neut % (Auto) 62.1, Lymph % (Auto) 23.0, Mcmullen % (Auto) 10.4 H, Eos % (Auto) 4.0, Baso % (Auto) 0.5, Absolute Neuts (auto) 2.5, Absolute Lymphs (auto) 0.93, Nucleated RBC % 0, Differential Comment SCANNED, Polychromasia RARE, Hypochromasia 2+, Anisocytosis 3+, Microcytosis 1+, Macrocytosis 1+, Tear Drop Cells RARE, Ovalocytes 2+, Stomatocytes RARE, PT 14.2, INR 1.1, Sodium 129 L, Potassium 3.8, Chloride 100, Carbon Dioxide 25.0, Anion Gap 5, BUN 19 H, Creatinine 1.02, Estim Creat Clear Calc 62.74, Est GFR (MDRD) Af Amer 73, Est GFR (MDRD) Non-Af 61, BUN/Creatinine Ratio 18.6, Glucose 302 H, Hemoglobin A1c Cancelled, Calcium 8.1 L, Total Bilirubin 0.20, AST 18, ALT 34, Alkaline Phosphatase 82, Total Protein 5.5 L, Albumin 2.0 L, Globulin 3.5, Albumin/Globulin Ratio 0.6 L 05/04/24 09:26: POC Glucose 90 Radiography Diagnostic Testing: Radiology Impression Chest X-Ray 05/03/24 11:29 IMPRESSION: Mild cardiomegaly. The lungs are clear. Electronically Signed: Aris Lugo MD at 12:15 EST , Rhythm Strip Rhythm Strip: Sinus Rhythm Rate: 92 Ectopy: None Charges/Coding Visit Charges Inpatient E M: 18474 Subs Hosp L1 05/04/24 1040 Cosigner Signature (if applicable): CC: Signed Normal [facility] MR/POSTOP.ANEon 05-04-2024 MR/POSTOP.[facility] Medical Records Department [address] [place] [address] Anesthesia Postop Eval I 05/04/24 1011 MR#: [id number] Acct: [id number] Name: MARIELLA RAMIREZ Rep #: [id number] : 1970 54 From: Ok Augustin MD PCP: Dr. Gerber Pina, DO Status:ADM IN Y Race: AA Location: MS3 [id number] Anesthesia: Postop Eval I Current Vital Signs Temperature: 99.1 F Pulse Rate: 100 Blood Pressure: 119/77 Respiratory Rate: 16 Pulse Ox: 100 Oxygen Delivery Method: Room Air Assessment Airway patent: Yes Spontaneous unlabored respirations: Yes Mental status: Awake and Calm nausea: No Vomiting: No Anesthesia Complication: No Fluid Hydration Crystalloid volume administer (ml): 5 Total IV fluid infused: 5 Progress Note Anesthesia document: Postop Eval 1 completed: Yes 05/04/24 1014 Date Ok Augustin MD Cosigner Signature: Date CC: Signed Normal [facility] MR/[id number] 05-04-2024 MR/POSTOPAN2 [facility] Medical Records Department [address] [place] [address] Anesthesia Postop Eval II 05/04/24 1123 MR#: [id number] Acct: [id number] Name: MARIELLA RAMIREZ Rep #: [id number] : 1970 54 From: Ok Augustin MD PCP: Dr. Gerber Pina, DO Status:ADM IN Y Race: AA [facility] Postop Eval I Sum Postop Eval Completion status Anesthesia document: Postop Eval 1 completed: Yes Anesthesia Postop Eval I Summary Anesthesia Postop Eval I Summary: Anesthesia Postop Eval I: Assessment Summary Airway patent Yes 05/04/24 10:14 Spontaneous unlabored Yes 05/04/24 10:14 respirations Mental status Awake,Calm 05/04/24 10:14 nausea No 05/04/24 10:14 Vomiting No 05/04/24 10:14 Anesthesia Postop Eval I: Fluid Summary Crystalloid volume administer 5 05/04/24 10:14 (ml) Colloids volume administered ( ml) Blood Product volume administered (ml) Total IV fluid infused 5 05/04/24 10:14 Anesthesia Postop Eval I: Summary Notes Anesthesia Complication No 05/04/24 10:14 Anesthesia Complication Comment: Post-operative progress note Anesthesia: Postop Eval II Evaluation Mental status: Awake and Calm Pain Level: 0 nausea: No Vomiting: No Complications Anesthesia Complication: No 05/04/24 1123 Date Ok Flores Signature: Date CC: Signed Normal [facility] Prothrombin Time w/INRon INR Coag (PPP) [Relative time] 1.1 {INR} Normal [facility] Comment on above: Performed By: #### L 500.4050, L3410.9999, L300.3900 #### [facility] Laboratory [address] [place], [address] PT Coag (PPP) [Time] 14.2 s Normal 11.7-14.9 [facility] Comment on above: Performed By: #### L 500.4050, L3410.9999, L300.3900 #### [facility] [address] [place], [address] BRCon 05-03-2024 RC Normal [facility] Comment on above: Result Comment: [id number] ABN RC READY [id number] ABN RC READY Performed By: #### L 501.080 #### [facility] [address] [place], [address] Result Comment: [id number] AP RC READY Performed By: #### L 501.4020, L500.4050, L100.0100 #### [facility] [address] [place], [address] Bedside Glucoseon 05-03-2024 FINGERSTICK GLU 385 mg/dL High 74-106 [facility] Comment on above: Result Comment: MANJINDER GEMENT OF PATIENT CARE PER NURSING PROTOCOL Performed By: #### L 501.080 #### [facility] [address] [place], [address] FINGERSTICK GLU 336 mg/dL High 74-106 [facility] Comment on above: Result Comment: MANJINDER GEMENT OF PATIENT CARE PER NURSING PROTOCOL Performed By: #### L 501.080 #### [facility] [address] [place], [address] CBC W/Diff, Automatedon 04-17 Anisocytosis Ql (Bld) 2+ Normal [facility] Comment on above: Performed By: #### L 501.4020, L500.4050, L100.0100 #### [facility] [address] [place], [address] HYPOCHROMASIA 2+ Normal [facility] Comment on above: Performed By: #### L 501.4020, L500.4050, L100.0100 #### [facility] [address] [place], [address] OVALOCYTE 1+ Normal [facility] Comment on above: Performed By: #### L 501.4020, L500.4050, L100.0100 #### [facility] [address] [place], [address] CNPNon 05-03-2024 CNPN Telephone (FAMPWS) MEGANMARIELLA Kris ([id number]) 1970 F T Date Time Provider Department 05/03/24 PINAGERBER During your visit today, we recorded the following information about you: Jacqui Jama LPN 05/03/2024 11:38 AM Signed Guillermo with [facility] called to see why pt was sent to the ER. Faxed over phone encounter with lab results and supporting information. Pt was identified with name and date of . FAX: [phone] Done. RONALD Crabtree M Robin, RN 05/03/2024 2:[address] Perez phoned to let provider know he is admitting patient for her anemia and will be giving patient blood transfusion. States they got the same lab results that [facility] reported. Jamaica Mireles APRN.TIFFANIE 05/03/2024 2:34 PM Signed Noted. Thank you. I apologize, I meant to call ER to give heads up but the day got ahead of me. Jamaica Mireles APRN.TIFFANIE Allergies As of Date: 05/03/2024 Noted Allergy Reaction STEFFI INHIBITORS 01/29/2014 3 - Cough LATEX 09/21/2011 2 - Rash MORPHINE 05/02/2024 8 - GI Upset Comments: Terrible vomitting Date Reviewed: 05/02/2024 Reviewed by: Jamaica Mireles APRN.CAT CRACKER OPERATOR - Fully Assessed Reason for Visit: release of records to [facility] [Other] Prescriptions as of 05/03/2024 - lisinopril (ZESTRIL) 10 mg tablet Take 1 tablet by mouth once daily. - Comp Stocking,Knee,Regular,Med misc 2 Each once daily. - metoprolol succinate ER (TOPROL XL) 100 mg Take 1 tablet by mouth two times a day. - ticagrelor (BRILINTA) 90 mg tablet Take by mouth. [facility] - atorvastatin (LIPITOR) 40 mg tablet TAKE 1 TABLET BY MOUTH ONCE DAILY AT BEDTIME FOR CHOLESTEROL - insulin glargine (LANTUS SOLOSTAR U-100 INSULIN) 100 unit/mL (3 mL) Inject 30 Units subcutaneously daily at bedtime. - insulin lispro (HUMALOG KWIKPEN INSULIN) 100 unit/mL 12 units 3 times daily - blood sugar diagnostic (BLOOD GLUCOSE TEST) test strip Test blood sugar(s) one times daily. Dx: 250.00. Insulin: No - BABY ASPIRIN ORAL Take by mouth. - Cholecalciferol, Vitamin D3, (DIALYVITE VITAMIN D) 125 mcg (5,000 unit) cap Take 1 capsule by mouth once daily. - Insulin Hume, Disposable, (BD ULTRA-FINE SONU PEN NEEDLE) 32 gauge x 5/32 ndle 2Use one needle for each dose. 1/day. - Lancets lancets Test blood sugar(s) 1 times daily. Dx: DM2. Insulin: No - blood sugar diagnostic (RELION PRIME TEST STRIPS) test strip Diabetes mellitus type 2, non insulin dependent, testing 1x/day, Use as instructed - ONETOUCH ULTRA TEST test strip USE TO CHECK GLUCOSE ONCE DAILY - Blood-Glucose Meter (ONE TOUCH ULTRA 2) monitoring kit 1 Each as needed. One Touch Meter Kit Diagnosis: Diabetes Mellitus - ibuprofen 800 mg tablet Take 1 tablet by mouth every 8 hours as needed (FOR PAIN. TAKE WITH FOOD). - MULTI-VITAMIN ORAL Take by mouth. Meds Comments as of 05/02/2024: Not taking any of her medications as of appointment on 05/02/24. Wants to use natural remedies instead. 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 MAHAD Telephone (FAMPWS) MARIELLA RAMIREZ ([id number]) 1970 F T Date Time Provider Department 05/03/24 JAMAICA MIRELES FAMPWS During your visit today, we recorded the following information about you: Jamaica Mireles APRN.TIFFANIE 05/03/2024 9:29 AM Signed Please call patient and let her know that she needs to go to ER [facility]. Her lab work results are out of control and I am very concerned. DM is completely uncontrolled with HgA1c at 18 BNP (cardiac function lab) is very high at 8,555 Hgb is at 6.8 --- she will need blood transfusion for this. We need to get this under control and focus on restarting medication regimens. Her current holistic approach is not working. I am concerned for DKA vs complete kidney failure if this is not corrected soon. Please have her go to ER today and please schedule long 60 minute hospital follow-up for the end of next week. Thank you, Jamaica Mireles APRN.Wendy Brooks LPN 05/03/2024 9:34 AM Signed Patient notified of results, verbalizes understanding of instructions. Pt stated she will go to ER, But will not get blood transfusion. Did you want her lab results to [facility]? Jamaica Mireles APRN.TIFFANIE 05/03/2024 10:08 AM Signed Yes, please fax over her result. Thank you, Jamaica Mireles APRN.Gi Cazares LPN 05/03/2024 10:45 AM Signed Labs were faxed to [facility]. Allergies As of Date: 05/03/2024 Noted Allergy Reaction STEFFI INHIBITORS 01/29/2014 3 - Cough LATEX 09/21/2011 2 - Rash MORPHINE 05/02/2024 8 - GI Upset Comments: Terrible vomitting Date Reviewed: 05/02/2024 Reviewed by: Jamaica Mireles APRN.CAT CRACKER OPERATOR - Fully Assessed Reason for Visit: Results [95] Prescriptions as of 05/03/2024 - lisinopril (ZESTRIL) 10 mg tablet Take 1 tablet by mouth once daily. - Comp Stocking,Knee,Regular,Med misc 2 Each once daily. - metoprolol succinate ER (TOPROL XL) 100 mg Take 1 tablet by mouth two times a day. - ticagrelor (BRILINTA) 90 mg tablet Take by mouth. [facility] - atorvastatin (LIPITOR) 40 mg tablet TAKE 1 TABLET BY MOUTH ONCE DAILY AT BEDTIME FOR CHOLESTEROL - insulin glargine (LANTUS SOLOSTAR U-100 INSULIN) 100 unit/mL (3 mL) Inject 30 Units subcutaneously daily at bedtime. - insulin lispro (HUMALOG KWIKPEN INSULIN) 100 unit/mL 12 units 3 times daily - blood sugar diagnostic (BLOOD GLUCOSE TEST) test strip Test blood sugar(s) one times daily. Dx: 250.00. Insulin: No - BABY ASPIRIN ORAL Take by mouth. - Cholecalciferol, Vitamin D3, (DIALYVITE VITAMIN D) 125 mcg (5,000 unit) cap Take 1 capsule by mouth once daily. - Insulin Hume, Disposable, (BD ULTRA-FINE SONU PEN NEEDLE) 32 gauge x 5/32 ndle 2Use one needle for each dose. 1/day. - Lancets lancets Test blood sugar(s) 1 times daily. Dx: DM2. Insulin: No - blood sugar diagnostic (RELION PRIME TEST STRIPS) test strip Diabetes mellitus type 2, non insulin dependent, testing 1x/day, Use as instructed - ONETOUCH ULTRA TEST test strip USE TO CHECK GLUCOSE ONCE DAILY - Blood-Glucose Meter (ONE TOUCH ULTRA 2) monitoring kit 1 Each as needed. One Touch Meter Kit Diagnosis: Diabetes Mellitus - ibuprofen 800 mg tablet Take 1 tablet by mouth every 8 hours as needed (FOR PAIN. TAKE WITH FOOD). - MULTI-VITAMIN ORAL Take by mouth. Meds Comments as of 05/02/2024: Not taking any of her medications as of appointment on 05/02/24. Wants to use natural remedies instead. 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 Chest 1 View (Portable)on Chest 1 View (Portable) [facility] Imaging Services [address] [place] [id number] Chest 1 View (Portable) MR#: [id number] Acct: [id number] Name: MARIELLA RAMIREZ Rep #: [id number] : 1970 F 54 From: Aris mendoza MD PCP: Dr. Gerber Pina, Status: REG ER Study: Chest 1 View (Portable) Date of Exam: 05/03/24 Exam# [id number] Ordering Dr: Oumar Perez MD [id number] STUDY: X-RAY CHEST REASON FOR EXAM: Female, 54 years old. Chest pain TECHNIQUE: Single AP portable view of the chest. COMPARISON: None. FINDINGS: EKG electrodes are seen. The lungs are clear and expanded. There is no demonstrated pleural abnormality. There is mild cardiac enlargement. Normal mediastinum and [place]. Normal visualized pulmonary arteries. Normal visualized aortic arch and descending thoracic aorta. Normal visualized thoracic spine. Normal visualized ribs, clavicles, and shoulders. There is no demonstrated abnormality of the visualized soft tissue structures of the upper abdomen. RAD/Chest 1 View (Portable) IMPRESSION: Mild cardiomegaly. The lungs are clear. Electronically Signed: Aris Lugo MD at 12:15 EST , CC: Dr. Oumar Perez MD; Dr. Gerber Pina DO Frequency Checker: Signed Normal [facility] Comprehensive Metabolic Prof ilon 05-03-2024 Albumin [Mass/Vol] 2.6 g/dL Low 3.2-5.0 [facility] Comment on above: Order Comment: 'TROP ' Serial specimen #1, #2 or #3: 1 Performed By: #### L 501.4020, L500.4050, L100.0100 #### [facility] Laboratory [address] [place], [address] Albumin/Globulin [Mass ratio] 0.6 {ratio} Low 0.9-2.4 [facility] Comment on above: Order Comment: 'TROP ' Serial specimen #1, #2 or #3: 1 Performed By: #### L 501.4020, L500.4050, L100.0100 #### [facility] [address] [place], [address] ALK P 113 U/L Normal 45-117 [facility] Comment on above: Order Comment: 'TROP ' Serial specimen #1, #2 or #3: 1 Performed By: #### L 501.4020, L500.4050, L100.0100 #### [facility] [address] [place], [address] ALT [Catalytic activity/Vol] 45 U/L Normal 13-56 [facility] Comment on above: Order Comment: 'TROP ' Serial specimen #1, #2 or #3: 1 Performed By: #### L 501.4020, L500.4050, L100.0100 #### [facility] [address] [place], [address] AST [Catalytic activity/Vol] 29 U/L Normal 15-37 [facility] Comment on above: Order Comment: 'TROP ' Serial specimen #1, #2 or #3: 1 Performed By: #### L 501.4020, L500.4050, L100.0100 #### [facility] [address] [place], [address] Bilirubin [Mass/Vol] 0.40 mg/dL Normal 0.20-1.00 [facility] Comment on above: Order Comment: 'TROP ' Serial specimen #1, #2 or #3: 1 Result Comment: For patients on eltrombopag therapy, use of Dimension Rollins TBIL is not recommended. Performed By: #### L 501.4020, L500.4050, L100.0100 #### [facility] [address] [place], [address] BUN/CRE 21.8 RATIO High 10-20 [facility] Comment on above: Order Comment: 'TROP ' Serial specimen #1, #2 or #3: 1 Performed By: #### L 501.4020, L500.4050, L100.0100 #### [facility] [address] [place], [address] CA,Total 8.9 mg/dL Normal 8.5-10.1 [facility] Comment on above: Order Comment: 'TROP ' Serial specimen #1, #2 or #3: 1 Performed By: #### L 501.4020, L500.4050, L100.0100 #### [facility] [address] [place], [address] Chloride [Moles/Vol] 96 mmol/L Low 98-107 [facility] Comment on above: Order Comment: 'TROP ' Serial specimen #1, #2 or #3: 1 Performed By: #### L 501.4020, L500.4050, L100.0100 #### [facility] [address] [place], [address] CO2 [Moles/Vol] 26.0 mmol/L Normal 21.0-32.0 [facility] Comment on above: Order Comment: 'TROP ' Serial specimen #1, #2 or #3: 1 Performed By: #### L 501.4020, L500.4050, L100.0100 #### [facility] [address] [place], [address] Creatinine [Mass/Vol] 1.01 mg/dL Normal 0.55-1.02 [facility] Comment on above: Order Comment: 'TROP ' Serial specimen #1, #2 or #3: 1 Result Comment: The validity of the calculated GFR GFRAA in patients over 70 years has not been determined. Clinical correlation is essential. Performed By: #### L 501.4020, L500.4050, L100.0100 #### [facility] [address] [place], [address] ECRCL 63.36 ml/min Normal [facility] Comment on above: Order Comment: 'TROP ' Serial specimen #1, #2 or #3: 1 Performed By: #### L 501.4020, L500.4050, L100.0100 #### [facility] [address] [place], [address] EST GFR - AA 74 mL/min Normal >60 [facility] Comment on above: Order Comment: 'TROP ' Serial specimen #1, #2 or #3: 1 Result Comment: Afri can Congolese GFR Calc Performed By: #### L 501.4020, L500.4050, L100.0100 #### [facility] [address] [place], [address] GAP 9 Normal 5-15 [facility] Comment on above: Order Comment: 'TROP ' Serial specimen #1, #2 or #3: 1 Performed By: #### L 501.4020, L500.4050, L100.0100 #### [facility] [address] [place], [address] GFR/1.73 sq M.predicted among non-blacks MDRD (S/P/Bld) [Vol rate/Area] 61 mL/min/{1.73_m2} Normal >60 [facility] Comment on above: Order Comment: 'TROP ' Serial specimen #1, #2 or #3: 1 Result Comment: Non- GFR Calc Performed By: #### L 501.4020, L500.4050, L100.0100 #### [facility] [address] [place], [address] Globulin (S) [Mass/Vol] 4.2 g/dL Normal 2.2-4.2 [facility] Comment on above: Order Comment: 'TROP ' Serial specimen #1, #2 or #3: 1 Performed By: #### L 501.4020, L500.4050, L100.0100 #### [facility] [address] [place], [address] Glucose [Mass/Vol] 560 mg/dL Invalid Interpretation Code 74-106 [facility] Comment on above: Order Comment: 'TROP ' Serial specimen #1, #2 or #3: 1 Result Comment: Crit ical Result(s) Called at: 12:08:01 05/03/2024 by: Perla Messer to Sofiya Medina. Results read back by same. Glucose result greater than or equal to 200 mg/dL suggests DIABETES MELLITUS per A.D.A. criteria. Performed By: #### L 501.4020, L500.4050, L100.0100 #### [facility] [address] [place], [address] Potassium [Moles/Vol] 3.9 mmol/L Normal 3.5-5.1 [facility] Comment on above: Order Comment: 'TROP ' Serial specimen #1, #2 or #3: 1 Performed By: #### L 501.4020, L500.4050, L100.0100 #### [facility] [address] [place], [address] Sodium [Moles/Vol] 130 mmol/L Low 136-145 [facility] Comment on above: Order Comment: 'TROP ' Serial specimen #1, #2 or #3: 1 Performed By: #### L 501.4020, L500.4050, L100.0100 #### [facility] [address] [place], [address] T PROT 6.8 g/dL Normal 6.4-8.2 [facility] Comment on above: Order Comment: 'TROP ' Serial specimen #1, #2 or #3: 1 Performed By: #### L 501.4020, L500.4050, L100.0100 #### [facility] [address] [place], [address] Urea nitrogen [Mass/Vol] 22 mg/dL High 7-18 [facility] Comment on above: Order Comment: 'TROP ' Serial specimen #1, #2 or #3: 1 Performed By: #### L 501.4020, L500.4050, L100.0100 #### [facility] [address] [place], [address] Emergency Department Summary on 05-03-2024 Emergency Department Summary [facility] Medical Records Department [address] [place] [address] Emergency Department Summary 05/03/24 MR#: [id number] Acct: [id number] Name: MARIELLA RAMIREZ Rep #: [id number] : 1970 54 From: Oumar Perez MD PCP: Dr. Gerber Pina, DO Status:REG ER Location: ED ADDENDUM by Dr. Oumar Perez MD on 05/03/24 at 1454 While talking to the patient and her sister about her diagnoses. 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 She is comfortable being admitted and having further evaluation for anemia. She is comfortable getting endoscopy as needed. But she does not want a blood transfusion. 05/03/24 3087 Cosigner Signature (if applicable): cc: Dr. Gerber Pina, DO * Signed HPI History of Present Illness Chief Complaint: Abn Labs Informant: patient Narrative Narrative: 54-year-old female history of diabetes, CAD with stents on the blood thinner Brilinta. History of CHF. Saw her primary care physician's office last week had bilateral lower extremity swelling. She states they put her back on blood pressure medication lisinopril and the leg swelling is improving but still there. She denies any chest pain or shortness of breath. She was called today by her primary care physician said her lab work they did was off and they wonder sent to the ER. She does not know what lab was offered why specifically they sent her in. Prior similar symptoms: Yes Recent Illness/Hospitalization: No PFSH PFSH Medical History Chest pain Hyperglycemia Essential hypertension Atherosclerotic heart disease of [place] coronary artery without angina pectoris History of CAD (coronary artery disease) Myocardial infarct Type 2 diabetes mellitus Home Medications ???Medication ???Instructions ???Recorded ???Last Taken ???Type acetaminophen 325 mg tablet 650 mg (2 x 325 mg) PO Q6H PRN PRN 09/02/22 Unknown Rx Pain 1-10 Or Fever >100.7 #0 tabs aspirin 81 mg tablet,delayed 81 mg PO BREAKFAST #0 tabs 09/02/22 Unknown Rx release pen needle, diabetic 29 gauge x #100 ea 09/02/22 Unknown Rx 1/2 lisinopril 10 mg tablet 10 mg PO DAILY #90 tabs 10/11/22 Unknown Rx ticagrelor 90 mg tablet (Brilinta) 90 mg PO BID #60 tabs 02/02/24 Unknown Rx Allergy/AdvReac Type Severity Reaction Status Date / Time latex Allergy Rash Verified 05/03/24 09:57 morphine AdvReac Nausea Verified 05/03/24 09:57 Family History Other Hypertension Surgical History Stented coronary artery (09/01/22) History of coronary artery stent placement ( 08/24/20) Social History Smoking Status: Never smoker alcohol intake: never substance use type: does not use caffeine: No ROS ROS ED ROS Narrative Denies recent illness. Bilateral lower extremity swelling. Constitutional Constitutional ED: Denies chills or fever(s) Eyes Eyes: Denies blurry vision ENT ENT ED: Denies ear pain Cardiovascular Cardiovascular: Denies chest pain or palpitations Respiratory/Chest Respiratory/Chest: Denies cough or dyspnea Gastrointestinal Gastrointestinal: Denies abdominal pain Genitourinary Genitourinary ED: Denies dysuria or hematuria Integumentary Denies abscess or Abrasions Neurologic Neurologic: Denies headache(s) Psychiatric Psychiatric: Denies anxiety or depression Endocrine Endocrinology: Denies cold intolerance Hematologic/Lymphatic Hematologic/Lymphatic: Reports none Allergic/Immunologic Allergic/Immunologic ED: Denies mouth swelling, tongue swelling or urticaria EXAM Physical Exam Narrative Exam Narrative: Well-appearing 54-year-old female. Vital signs stable afebrile. H EENT exam unremarkable. Moist mucous membranes. No facial droop. Normal speech. Neck nontender JVD. Lungs clear to auscultation bilaterally. Heart regular rhythm no murmur. Chest wall and ribs nontender. Abdomen soft nontender. Moving all 4 extremities. 2+ pitting edema both lower extremities. Equal symmetrical. Calves are nontender without edema or cords. Normal bag loader strength. Normal dorsi plantarflexion. Neurologically she is awake alert no focal motor deficits. Const Vital Signs: 05/03/24 09:56 05/03/24 10:33 05/03/24 11:29 Temperature 98 F Temperature Source Temporal Pulse Rate 95 Respiratory Rate 149 H Respiratory Effort Normal Respiratory Pattern Normal Blood Pressure 153/91 H Blood Pressure Mean 111 Pulse Ox 95 Oxygen Delivery Method Room Air Room Air 05/03/24 11:56 05/03/24 13:00 Temperature Temperature Source Pulse Rate 94 99 Respiratory Rate (more content not included)... Normal [facility] Ferritinon 05-03-2024 Ferritin [Mass/Vol] 5 ng/mL Low 8-252 [facility] Comment on above: Performed By: #### L 501.4020, L500.4050, L100.0100 #### [facility] Laboratory [address] [place], [address] H AND P Exam - Hospitaliston 05-03-2024 H&P Exam - Hospitalist [facility] Medical Records Department [address] [place] [address] H P Exam - Hospitalist 05/03/24 1449 MR#: [id number] Acct: [id number] Name: MARIELLA RAMIREZ Rep #: [id number] : 1970 54 From: Chayito Maravilla DO PCP: Dr. Gerber Pina DO Status:ADM [place] [facility] [place] HPI - General General Date of Admission: 05/03/24 Date of Service: 05/03/24 Chief Complaint: Abnormal labs HPI Narrative MARIELLA RAMIREZ, is a 54 F who presented to the emergency department at [facility] on 05/03/2024 at the instruction of her primary care physician at the [facility] for abnormal hemoglobin. The patient was seen in her primary care office last week and had bilateral lower extremity edema. She had been noncompliant with her home medications including insulin, blood pressure medication and and antiplatelet therapy after stent placement and her medications were reinstituted. Lab work was obtained and she was called today letting her know that she had abnormal hemoglobin and instructed her to come to the emergency department. She states she has been asymptomatic. She feels that her leg swelling is better. She stated she had an admission in September for heart failure however does not look she came to this hospital. Our last echocardiogram showed normal EF. She does have a known history of coronary disease for which stent was placed in the LAD in 2022. She has had previous stents done elsewhere. Vital signs on presentation showed a temperature of 98, heart rate 95, respiratory rate was 16, blood pressure was 153/91 and pulse ox was 95% on room air. CBC was markedly abnormal with a leukopenia, severe anemia with a hemoglobin of 6.7, and thrombocytosis with a platelet count of 603,000. Her last hemoglobin here was in August 2022 and was 11.3. Chemistry panel showed mild hyponatremia with a sodium of 130, normal renal function, serum glucose of 560. I obtain iron studies and she was found to be markedly iron deficient with a total iron of 16, iron saturation of 3.4, ferritin of 5 and an elevated TIBC at 474. Liver function was normal. Chest x-ray showed mild cardiomegaly unremarkable lung randolph. With her hemoglobin being severely low the intent was to transfuse 2 units packed red blood cells however we were notified by family that she is Anabaptism. This was further discussed with the patient and she did admit to being Anabaptism and declined blood transfusion. She was amenable to workup and iron replacement via IV but no blood products. FORMERLY [facility], [facility] Medical History Hypertension Chest pain Hyperglycemia Essential hypertension Atherosclerotic heart disease of [place] coronary artery without angina pectoris History of CAD (coronary artery disease) Myocardial infarct Type 2 diabetes mellitus Home Medications ???Medication ???Instructions ???Recorded ???Last Taken ???Type acetaminophen 325 mg tablet 650 mg (2 x 325 mg) PO Q6H PRN PRN 09/02/22 Unknown Rx Pain 1-10 Or Fever >100.7 #0 tabs aspirin 81 mg tablet,delayed 81 mg PO BREAKFAST #0 tabs 09/02/22 Unknown Rx release pen needle, diabetic 29 gauge x #100 ea 09/02/22 Unknown Rx 1/2 lisinopril 10 mg tablet 10 mg PO DAILY #90 tabs 10/11/22 Unknown Rx ticagrelor 90 mg tablet (Brilinta) 90 mg PO BID #60 tabs 02/02/24 Unknown Rx Allergy/AdvReac Type Severity Reaction Status Date / Time latex Allergy Rash Verified 05/03/24 09:57 morphine AdvReac Nausea Verified 05/03/24 09:57 Family History Other Hypertension Surgical History Stented coronary artery (09/01/22) History of coronary artery stent placement ( 08/24/20) Social History Smoking Status: Never smoker alcohol intake: never substance use type: does not use caffeine: No ROS Constitutional Constitutional: Reports fatigue; Denies anorexia, change in weight, chills, fever(s), malaise, night sweats, weakness or other Eyes Eyes: Denies blurry vision, change in eye color, change in vision, discharge from eye(s), double vision, erythema, eye pain, loss of vision or other ENT HEENT: Denies abnormal hearing, dysphagia, ear pain, epistaxis, headache(s), hearing loss, nasal congestion, nasal discharge, post nasal drip, sinus pressure, sore throat or other Cardiovascular Cardiovascular: Reports edema; Denies chest pain, claudication, dyspnea on exertion, lightheadedness, orthopnea, palpitations, paroxysmal nocturnal dyspnea, rapid heart rate, syncope or other Respiratory/Chest Respiratory/Chest: Denies cough, dyspnea, excessive phlegm production, hemoptysis, productive cough, shortness of breath at rest, shortness of breath with (more content not included)... Normal [facility] HH, Hemoglobin AND Hematocri ton 05-03-2024 HCT Normal -[address] [place] [address] Comment on above: Result Comment: Canc elled via OM: MD Ordered Performed By: #### L 501.4020, L500.4050, L100.0100 #### [facility] [address] [place], [address] HGB Normal 12.0-15.0 [facility] Comment on above: Result Comment: Canc elled via OM: MD Ordered Performed By: #### L 501.4020, L500.4050, L100.0100 #### [facility] [address] [place], [address] Hematocrit (Bld) [Volume fraction] 25.3 % Low [address] Comment on above: Performed By: #### L 501.080 #### [facility] [address] [place], [address] Hemoglobin (Bld) [Mass/Vol] 6.9 g/dL Low 12.0-15.0 [facility] Comment on above: Performed By: #### L 501.080 #### [facility] [address] [place], [address] Iron+Iron Binding Capacityon 05-03-2024 Iron [Mass/Vol] 16 ug/dL Low 50-170 [facility] Comment on above: Performed By: #### L 501.4020, L500.4050, L100.0100 #### [facility] [address] [place], [address] IRON SATURATION 3.4 Low 15.0-55.0 [facility] Comment on above: Performed By: #### L 501.4020, L500.4050, L100.0100 #### [facility] [address] [place], [address] TIBC 474 ug/dL High 250-450 [facility] Comment on above: Performed By: #### L 501.4020, L500.4050, L100.0100 #### [facility] [address] [place], [address] L501.4020on 05-03-2024 TROPONIN-I HS 41 pg/mL Normal 3.0-54.0 [facility] Comment on above: Order Comment: 'TROP ' Serial specimen #1, #2 or #3: 1 Result Comment: Plea se Note: New Test Units and Gender Specific Reference Ranges. For more information see Policy Stat Procedure [place] High Sensitivity Troponin (TNIH) and attachments. Performed By: #### L 501.4020, L500.4050, L100.0100 #### [facility] [address] [place], [address] MR/CON.PCM.GIon 05-03-2024 MR/CON.PCM.GI [facility] Medical Records Department [address] [place] [address] Consultation - GI 05/03/24 2100 MR#: [id number] Acct: [id number] Name: MARIELLA RAMIREZ Rep #: [id number] : 1970 54 From: Rony Milligan DO PCP: Dr. Gerber Pina, DO Status:ADM [place] [facility] [id number] HPI Consult Data Date of Consult: 05/03/24 HPI Narrative Reason for Consultation: Anemia HPI Narrative: MARIELLA RAMIREZ, is a 54 F who presented to the emergency department at [facility] on 05/03/2024 at the instruction of her primary care physician at the [facility] for abnormal hemoglobin. The patient was seen in her primary care office last week and had bilateral lower extremity edema. She had been noncompliant with her home medications including insulin, blood pressure medication and and antiplatelet therapy after stent placement and her medications were reinstituted. Lab work was obtained and she was called today letting her know that she had abnormal hemoglobin and instructed her to come to the emergency department. She states she has been asymptomatic. She feels that her leg swelling is better. She stated she had an admission in September for heart failure however does not look she came to this hospital. Our last echocardiogram showed normal EF. She does have a known history of coronary disease for which stent was placed in the LAD in 2022. She has had previous stents done elsewhere. Vital signs on presentation showed a temperature of 98, heart rate 95, respiratory rate was 16, blood pressure was 153/91 and pulse ox was 95% on room air. CBC was markedly abnormal with a leukopenia, severe anemia with a hemoglobin of 6.7, and thrombocytosis with a platelet count of 603,000. Her last hemoglobin here was in August 2022 and was 11.3. Chemistry panel showed mild hyponatremia with a sodium of 130, normal renal function, serum glucose of 560. I obtain iron studies and she was found to be markedly iron deficient with a total iron of 16, iron saturation of 3.4, ferritin of 5 and an elevated TIBC at 474. Liver function was normal. Chest x-ray showed mild cardiomegaly unremarkable lung randolph. She did admit to being Anabaptism and declined blood transfusion. She was amenable to workup and iron replacement via IV but no blood products. FORMERLY [facility], [facility] Medical History Hypertension Chest pain Hyperglycemia Essential hypertension Atherosclerotic heart disease of [place] coronary artery without angina pectoris History of CAD (coronary artery disease) Myocardial infarct Type 2 diabetes mellitus Home Medications ???Medication ???Instructions ???Recorded ???Last Taken ???Type acetaminophen 325 mg tablet 650 mg (2 x 325 mg) PO Q6H PRN PRN 09/02/22 Unknown Rx Pain 1-10 Or Fever >100.7 #0 tabs aspirin 81 mg tablet,delayed 81 mg PO BREAKFAST #0 tabs 09/02/22 Unknown Rx release pen needle, diabetic 29 gauge x #100 ea 09/02/22 Unknown Rx 1/2 lisinopril 10 mg tablet 10 mg PO DAILY #90 tabs 10/11/22 Unknown Rx ticagrelor 90 mg tablet (Brilinta) 90 mg PO BID #60 tabs 02/02/24 Unknown Rx Allergy/AdvReac Type Severity Reaction Status Date / Time latex Allergy Rash Verified 05/03/24 09:57 morphine AdvReac Nausea Verified 05/03/24 09:57 Family History Other Hypertension Surgical History Stented coronary artery (09/01/22) History of coronary artery stent placement ( 08/24/20) Social History Smoking Status: Never smoker alcohol intake: never substance use type: does not use caffeine: No ROS Constitutional Constitutional: Reports fatigue; Denies anorexia, change in weight, chills, fever(s), malaise, night sweats, weakness or other Eyes Eyes: Denies blurry vision, change in eye color, change in vision, discharge from eye(s), double vision, erythema, eye pain, loss of vision or other ENT HEENT: Denies abnormal hearing, dysphagia, ear pain, epistaxis, headache(s), hearing loss, nasal congestion, nasal discharge, post nasal drip, sinus pressure, sore throat or other Cardiovascular Cardiovascular: Reports edema; Denies chest pain, claudication, dyspnea on exertion, lightheadedness, orthopnea, palpitations, paroxysmal nocturnal dyspnea, rapid heart rate, syncope or other Respiratory/Chest Respiratory/Chest: Denies cough, dyspnea, excessive phlegm production, hemoptysis, productive cough, shortness of breath at rest, shortness of breath with exertion, wheezing or other Gastrointestinal Gastrointestinal: Denies abdominal pain, coffee ground emesis, constipation, diarrhea, dyspepsia, hematemesis, hematochezia, loose stools, melena, nausea, vomiting (more content not included)... Normal [facility] ,Urineon 05-03-2024 Beta HCG ( test) Ql (U) Negative Normal [facility] Comment on above: Order Comment: Jazz wei has had a period within 12 mo Result Comment: Very dilute urine specimens, as indicated by a low specific gravity, may not contain printing sales representative levels of hCG. If is still suspected, a first morning urine specimen should be collected 48 hours later and tested. Performed By: #### L 500.4050, L3410.9999, L300.3900 #### [facility] [address] [place], [address] Retic Panelon 05-03-2024 IPF 2.9 Normal 1.0-7.9 [facility] Comment on above: Result Comment: Low PLT + Low IPF suggest a bone marrow production disorder Low PLT + high IPF suggests peripheral destruction (e.g.ITP, TTP, HIT, DIC, autoimmune) or bone marrow recovery Trending of serial IPF measurements is recommended when evaluating for bone marrow respones Value above normal range indicates an increase in RBC cellular response from bone marrow. Performed By: #### L 500.4050, L3410.9999, L300.3900 #### [facility] [address] [place], [address] Type AND Screenon 05-03-2024 ABO and Rh group Nom (Bld) Blood group AB Rh(D) positive Normal [facility] Comment on above: Order Comment: Has p t arrived? YCMV NEG? NNumber of units to transfuse: 1Is there a >20% drop in pt's BP? NIs the pt's CVP (central venous pressure) <3 cm/H2O? NIs the EBL >/= 1000ml in adults or >/= 12ml/kg in children?YIs there an orthostatic change in pt's BP(SBP drop>10mmHg)? NIs pt's HR > 100 bpm? NReason for Ordering Blood: AcuteAre the blood/blood products to be transfused? YIs the patient having/had surgery? Mayi Butler Performed By: #### L 501.080 #### [facility] [address] [place], [address] CBC W Auto Differential pane l (Bld)on 05-02-2024 Basophils (Bld) [#/Vol] 0.04 10*3/uL Normal <0.[address] [facility] Comment on above: Order Comment: Speci men Type: BLOOD SPECIMEN Ordering Facility: [facility] Address: [address] [place] [address] Performed By: #### 3 3762-6, 80004-3, 86263-0 #### [facility] CLIA [id number] [address] [place] [address] [place] Basophils/100 WBC (Bld) 0.8 % Normal [facility] Comment on above: Order Comment: Speci men Type: BLOOD SPECIMEN Ordering Facility: [facility] Address: [address] [place] [address] Performed By: #### 3 3762-6, 57420-5, 55294-5 #### [facility] CLIA [id number] [address] [place] [address] [place] Differential cell count method Nom (Bld) Auto Normal [facility] Comment on above: Order Comment: Speci men Type: BLOOD SPECIMEN Ordering Facility: [facility] Address: [address] [place] [address] Performed By: #### 3 3762-6, 08609-8, 30377-8 #### [facility] CLIA [id number] [address] [place] [address] [place] Eosinophils (Bld) [#/Vol] 0.04 10*3/uL Normal <0.[address] [facility] Comment on above: Order Comment: Speci men Type: BLOOD SPECIMEN Ordering Facility: [facility] Address: [address] [place] [address] Performed By: #### 3 3762-6, 06880-5, 75945-5 #### [facility] CLIA [id number] [address] [place] [address] [place] Eosinophils/100 WBC (Bld) 0.8 % Normal [facility] Comment on above: Order Comment: Speci men Type: BLOOD SPECIMEN Ordering Facility: [facility] Address: [address] [place] [address] Performed By: #### 3 3762-6, 22695-9, 85486-6 #### [facility] CLIA [id number] [address] [place] [address] [place] Erythrocyte distribution width (RBC) [Ratio] 21.5 % High 11.5-15.[address] [facility] Comment on above: Order Comment: Speci men Type: BLOOD SPECIMEN Ordering Facility: [facility] Address: [address] [place] [address] Performed By: #### 3 3762-6, 30267-6, 90568-5 #### [facility] CLIA [id number] [address] [place] [address] [place] Hematocrit (Bld) [Volume fraction] 25.2 % Low 36.0-46.[address] [facility] Comment on above: Order Comment: Speci men Type: BLOOD SPECIMEN Ordering Facility: [facility] Address: [address] [place] [address] Performed By: #### 3 3762-6, 42767-5, 58648-1 #### [facility] CLIA [id number] [address] [place] [address] [place] Hemoglobin (Bld) [Mass/Vol] 6.8 g/dL Low 11.5-15.[address] [facility] Comment on above: Order Comment: Speci men Type: BLOOD SPECIMEN Ordering Facility: [facility] Address: [address] [place] [address] Performed By: #### 3 3762-6, 52901-1, 30753-0 #### [facility] CLIA [id number] [address] [place] [address] [place] Immature granulocytes (Bld) [#/Vol] 10*3/uL Normal <0.[address] [facility] Comment on above: Order Comment: Speci men Type: BLOOD SPECIMEN Ordering Facility: [facility] Address: [address] [place] [address] Performed By: #### 3 3762-6, 33125-3, 71173-5 #### [facility] CLIA [id number] [address] [place] [address] [place] Immature granulocytes/100 WBC (Bld) 0.4 % Normal [facility] Comment on above: Order Comment: Speci men Type: BLOOD SPECIMEN Ordering Facility: [facility] Address: [address] [place] [address] Performed By: #### 3 3762-6, 21448-8, 67512-3 #### [facility] CLIA [id number] [address] [place] [address] [place] Lymphocytes (Bld) [#/Vol] 0.81 10*3/uL Low 1.00-4.[address] [facility] Comment on above: Order Comment: Speci men Type: BLOOD SPECIMEN Ordering Facility: [facility] Address: [address] [place] [address] Performed By: #### 3 3762-6, 53134-9, 61213-2 #### [facility] CLIA [id number] [address] [place] [address] [place] Lymphocytes/100 WBC (Bld) 16.3 % Normal [facility] Comment on above: Order Comment: Speci men Type: BLOOD SPECIMEN Ordering Facility: [facility] Address: [address] [place] [address] Performed By: #### 3 3762-6, 85465-4, 38700-3 #### [facility] CLIA [id number] [address] [place] [address] [place] MCH (RBC) [Entitic mass] 17.3 pg Low 26.0-34.[address] [facility] Comment on above: Order Comment: Speci men Type: BLOOD SPECIMEN Ordering Facility: [facility] Address: [address] [place] [address] Performed By: #### 3 3762-6, 53897-4, 76476-5 #### [facility] CLIA [id number] [address] [place] [address] [place] MCHC (RBC) [Mass/Vol] 27.0 g/dL Low 30.5-36.[address] [facility] Comment on above: Order Comment: Speci men Type: BLOOD SPECIMEN Ordering Facility: [facility] Address: [address] [place] [address] Performed By: #### 3 3762-6, 49045-2, 28389-3 #### [facility] CLIA [id number] [address] [place] [address] [place] MCV (RBC) [Entitic vol] 64.0 fL Low 80.0-100.[address] [facility] Comment on above: Order Comment: Speci men Type: BLOOD SPECIMEN Ordering Facility: [facility] Address: [address] [place] [address] Performed By: #### 3 3762-6, 93449-3, 25249-1 #### [facility] CLIA [id number] [address] [place] [address] [place] Monocytes (Bld) [#/Vol] 0.43 10*3/uL Normal <0.[address] [facility] Comment on above: Order Comment: Speci men Type: BLOOD SPECIMEN Ordering Facility: [facility] Address: [address] [place] [address] Performed By: #### 3 3762-6, 92210-9, 98009-9 #### [facility] CLIA [id number] [address] [place] [address] [place] Monocytes/100 WBC (Bld) 8.7 % Normal [facility] Comment on above: Order Comment: Speci men Type: BLOOD SPECIMEN Ordering Facility: [facility] Address: [address] [place] [address] Performed By: #### 3 3762-6, 79177-1, 23799-2 #### [facility] CLIA [id number] [address] [place] [address] [place] Neutrophils (Bld) [#/Vol] 3.63 10*3/uL Normal 1.45-7.[address] [facility] Comment on above: Order Comment: Speci men Type: BLOOD SPECIMEN Ordering Facility: [facility] Address: [address] [place] [address] Performed By: #### 3 3762-6, 57696-0, 71668-9 #### [facility] CLIA [id number] [address] [place] [address] [place] Neutrophils/100 WBC (Bld) 73.0 % Normal [facility] Comment on above: Order Comment: Speci men Type: BLOOD SPECIMEN Ordering Facility: [facility] Address: [address] [place] [address] Performed By: #### 3 3762-6, 11720-7, 43384-4 #### [facility] CLIA [id number] [address] [place] [address] [place] Nucleated RBC (Bld) [#/Vol] 10*3/uL Normal <0.[address] [facility] Comment on above: Order Comment: Speci men Type: BLOOD SPECIMEN Ordering Facility: [facility] Address: [address] [place] [address] Performed By: #### 3 3762-6, 12620-0, 86414-8 #### [facility] CLIA [id number] [address] [place] [address] [place] Nucleated RBC/100 WBC (Bld) [Ratio] 0.0 /100 WBC Normal [facility] Comment on above: Order Comment: Speci men Type: BLOOD SPECIMEN Ordering Facility: [facility] Address: [address] [place] [address] Performed By: #### 3 3762-6, 88025-0, 74510-5 #### [facility] CLIA [id number] [address] [place] [address] [place] Platelet mean volume (Bld) [Entitic vol] 9.6 fL Normal 9.0-12.[address] [facility] Comment on above: Order Comment: Speci men Type: BLOOD SPECIMEN Ordering Facility: [facility] Address: [address] [place] [address] Performed By: #### 3 3762-6, 18958-2, 78068-0 #### [facility] CLIA [id number] [address] [place], [place] [address] [place] Platelets (Bld) [#/Vol] 637 10*3/uL High 150-[address] [facility] Comment on above: Order Comment: Speci men Type: BLOOD SPECIMEN Ordering Facility: [facility] Address: [address] [place] [address] Performed By: #### 3 3762-6, 09073-5, 10963-2 #### [facility] CLIA [id number] [address] [place], [place] [address] [place] RBC (Bld) [#/Vol] 3.94 10*6/uL Normal 3.90-5.20 [facility] Comment on above: Order Comment: Speci men Type: BLOOD SPECIMEN Ordering Facility: [facility] Address: [address] [place] [address] Performed By: #### 3 3762-6, 33015-7, 01678-9 #### [facility] CLIA [id number] [address] [place] [address] [place] WBC (Bld) [#/Vol] 4.97 10*3/uL Normal 3.70-11.00 [facility] Comment on above: Order Comment: Speci men Type: BLOOD SPECIMEN Ordering Facility: [facility] Address: [address] [place] [address] Performed By: #### 3 3762-6, 94953-9, 07674-1 #### [facility] CLIA [id number] [address] [place] [address] [place] CNOVon 05-02-2024 CNOV Office Visit (FAMPWS ) MARIELLA RAMIREZ ([id number]) 1970 F T Date Time Provider Department 05/02/24 7:40 AM [facility] [facility] During your visit today, we recorded the following information about you: Pulse Respiration Blood pressure Weight 96/minute 14/minute 162/90 71.7 kg [place] 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 Mariella is an established patient of Dr. Yovani DO. Concerns today.. Express care follow-up --- Express care visit yesterday d/t URI symptoms, SOB, and leg edema. Per note: ASSESSMENT/PLAN: 1. SOB (shortness of breath) - ICD9: 786.05, ICD10: R06.02 (primary diagnosis) 2. Bilateral leg edema - ICD9: 782.3, ICD10: R60.0 - XR CHEST 2V FRONTAL/LAT Lungs and pleura: No consolidation. No lung mass. No pleural effusion. No pneumothorax. Cardiomediastinal silhouette: The cardiac silhouette appears mildly prominent accentuated by magnification related to the AP technique. Coronary artery stents are noted IMPRESSION: No acute radiographic abnormality No pneumonia or pulmonary edema of heart failure. Likely recent viral URI (includes COVID, flu, and RSV which are prevalent in the community). ER evaluation is more appropriate where more diagnostic testing is available to evaluate for ketoacidosis, heart failure, or DVT. She reports significant improvement in swelling and lethargy compared to last week; I still advised ER evaluation if symptoms are worsening. 3. Essential hypertension - ICD9: 401.9, ICD10: I10 4. Polyuria - ICD9: 788.42, ICD10: R35.89 5. Type 2 diabetes mellitus with both eyes affected by mild nonproliferative retinopathy without macular edema, with long-term current use of insulin (HCC) - ICD9: 250.50, 362.04, V58.67, ICD10: E11.3293, Z79.4 6. Noncompliance with medication regimen - ICD9: V15.81, ICD10: Z91.148 We reviewed short and long-term risks of uncontrolled medical conditions can lead to disability and . Encouraged to schedule follow up with primary care at discharge. Today in office.... Pt reports SOB and URI symptoms are improved and mostly resolved. Coming here today to evaluate bilateral lower extremity edema. Pt reports bilateral leg swelling x 2 weeks. R slightly worse than L. Reports in the morning they will be normal but as she is on her feet all day at work, they swell and are the worst at night. Pt is elevating feet as much as possible which does help. Wearing tight AND high socks at work but does not have compression stocking. Pt reports not taking any of her medications currently d/t trying to use all natural remedies. [place] like all of her medications were making her feel worse and wants to try to use supplements instead. Reports feeling much better since doing so. Pt reports eating 1 grapefruit daily and taking daily detox regimen from [place]. Pt is unsure what is in this. Has been using this stuff for a few weeks. BP is elevated. Pt admits to not taking lisinopril or metoprolol. She does not check BP at home. She denies chest pain, shortness of breath, palpitations, dizziness, headaches, or vision changes. Last 14 Encounter BP Readings: Date: BP: 05/02/2024 162/90 05/01/2024 154/90 12/23/2022 138/78 09/16/2022 138/84 08/25/2022 140/78 01/06/2022 120/70 01/05/2022 122/70 09/10/2021 120/82 05/24/2021 136/86 04/30/2021 179/87 02/22/2021 134/78 11/11/2020 120/70 07/17/2020 142/84 10/09/2019 132/82 Past medical history, appointments, medications, allergies reviewed. 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 Normal [facility] Jarett 05-02-2024 TIFFANIEN Telephone (GERIWR) MARIELLA RAMIREZ ([id number]) 1970 F CHT Date Time Provider Department 05/02/24 MORIAH VÁSQUEZ During your visit today, we recorded the following information about you: Moriah Vásquez MD 05/02/2024 7:06 PM Signed Got paged about a critical lab, glucose of above 500 tried to reach the patient , 3 times, left voice mail , mail box was unidetified so could not give any details of the reason for call Called daughter number not in use. Called mothers numbers which is listed but it went to someone who said it was a company number. Wanted to call patient and ask clinically how she is doing and suggest increase of lantus for today Regards, Moriah Vásquez MD JosephineSindy MA 05/03/2024 10:41 AM Signed Patient notified in different encounter by PCP triad.Will close this TE. Allergies As of Date: 05/02/2024 Noted Allergy Reaction STEFFI INHIBITORS 01/29/2014 3 - Cough LATEX 09/21/2011 2 - Rash MORPHINE 05/02/2024 8 - GI Upset Comments: Terrible vomitting Date Reviewed: 05/02/2024 Reviewed by: [place] Mireles, ROSA.CAT CRACKER OPERATOR - Fully Assessed Prescriptions as of 05/03/2024 - lisinopril (ZESTRIL) 10 mg tablet Take 1 tablet by mouth once daily. - Comp Stocking,Knee,Regular,Med misc 2 Each once daily. - metoprolol succinate ER (TOPROL XL) 100 mg Take 1 tablet by mouth two times a day. - ticagrelor (BRILINTA) 90 mg tablet Take by mouth. [facility] - atorvastatin (LIPITOR) 40 mg tablet TAKE 1 TABLET BY MOUTH ONCE DAILY AT BEDTIME FOR CHOLESTEROL - insulin glargine (LANTUS SOLOSTAR U-100 INSULIN) 100 unit/mL (3 mL) Inject 30 Units subcutaneously daily at bedtime. - insulin lispro (HUMALOG KWIKPEN INSULIN) 100 unit/mL 12 units 3 times daily - blood sugar diagnostic (BLOOD GLUCOSE TEST) test strip Test blood sugar(s) one times daily. Dx: 250.00. Insulin: No - BABY ASPIRIN ORAL Take by mouth. - Cholecalciferol, Vitamin D3, (DIALYVITE VITAMIN D) 125 mcg (5,000 unit) cap Take 1 capsule by mouth once daily. - Insulin Hume, Disposable, (BD Kitenga-FINE SONU PEN NEEDLE) 32 gauge x 5/32 ndle 2Use one needle for each dose. 1/day. - Lancets lancets Test blood sugar(s) 1 times daily. Dx: DM2. Insulin: No - blood sugar diagnostic (RELION PRIME TEST STRIPS) test strip Diabetes mellitus type 2, non insulin dependent, testing 1x/day, Use as instructed - ONETOUCH ULTRA TEST test strip USE TO CHECK GLUCOSE ONCE DAILY - Blood-Glucose Meter (ONE TOUCH ULTRA 2) monitoring kit 1 Each as needed. One Touch Meter Kit Diagnosis: Diabetes Mellitus - ibuprofen 800 mg tablet Take 1 tablet by mouth every 8 hours as needed (FOR PAIN. TAKE WITH FOOD). - MULTI-VITAMIN ORAL Take by mouth. Meds Comments as of 05/02/2024: Not taking any of her medications as of appointment on 05/02/24. Wants to use natural remedies instead. Problem List As Of Date 05/02/2024 Noted Resolved Hidradenitis [L73.2] 09/26/2011 Overweight (BMI 25.0-29.9) [E66.3] 07/04/2012 DM (diabetes mellitus), type 2, uncontrolled, w*07/04/2012 Essential hypertension [I10] 11/12/2014 Abnormal finding on breast imaging [R92.8] 10/13/2015 Fat necrosis (segmental) of breast [N64.1] 10/15/2015 Constipation [K59.00] Type 2 diabetes mellitus without complication (*11/19/2015 10/20/2017 HLD (hyperlipidemia) [E78.5] 11/19/2015 Type 2 diabetes mellitus with both eyes affecte*03/29/2018 Encounter Status:Closed by SINDY BURTON on 05/03/[address] [facility] Comprehensive metabolic 2000 panelon 05-02-2024 Albumin [Mass/Vol] 3.4 g/dL Low 3.9-4.9 [facility] Comment on above: Order Comment: Speci men Type: BLOOD SPECIMEN Ordering Facility: [facility] Address: [address] [place] [address] Performed By: #### 3 3762-6, 05558-7, 80515-7 #### [facility] CLIA [id number] [address] [place] [address] [place] ALP [Catalytic activity/Vol] 124 U/L High 34-[address] [facility] Comment on above: Order Comment: Speci men Type: BLOOD SPECIMEN Ordering Facility: [facility] Address: [address] [place] [address] Performed By: #### 3 3762-6, 31902-0, 14219-4 #### [facility] CLIA [id number] [address] [place] [address] [place] ALT [Catalytic activity/Vol] 41 U/L High 7-[address] [facility] Comment on above: Order Comment: Speci men Type: BLOOD SPECIMEN Ordering Facility: [facility] Address: [address] [place] [address] Performed By: #### 3 3762-6, 95768-3, 78741-6 #### [facility] CLIA [id number] [address] [place] [address] [place] Anion gap [Moles/Vol] 13 mmol/L Normal 8-[address] [facility] Comment on above: Order Comment: Speci men Type: BLOOD SPECIMEN Ordering Facility: [facility] Address: [address] [place] [address] Performed By: #### 3 3762-6, 91285-4, 39339-4 #### [facility] CLIA [id number] [address] [place] [address] [place] AST [Catalytic activity/Vol] 32 U/L Normal 13-[address] [facility] Comment on above: Order Comment: Speci men Type: BLOOD SPECIMEN Ordering Facility: [facility] Address: [address] [place] [address] Performed By: #### 3 3762-6, 12343-9, 35722-0 #### [facility] CLIA [id number] [address] [place] [address] [place] Bilirubin [Mass/Vol] 0.3 mg/dL Normal 0.2-1.[address] [facility] Comment on above: Order Comment: Speci men Type: BLOOD SPECIMEN Ordering Facility: [facility] Address: [address] [place] [address] Performed By: #### 3 3762-6, 08617-5, 84309-5 #### [facility] CLIA [id number] [address] [place] [address] [place] Calcium [Mass/Vol] 9.3 mg/dL Normal 8.5-10.2 [facility] Comment on above: Order Comment: Speci men Type: BLOOD SPECIMEN Ordering Facility: [facility] Address: [address] [place] [address] Performed By: #### 3 3762-6, 17159-0, 02264-8 #### [facility] CLIA [id number] [address] [place] [address] [place] Chloride [Moles/Vol] 91 mmol/L Low 98-[address] [facility] Comment on above: Order Comment: Speci men Type: BLOOD SPECIMEN Ordering Facility: [facility] Address: [address] [place] [address] Performed By: #### 3 3762-6, 91957-8, 28220-1 #### [facility] CLIA [id number] [address] [place] [address] [place] CO2 [Moles/Vol] 23 mmol/L Normal 22-[address] [facility] Comment on above: Order Comment: Speci men Type: BLOOD SPECIMEN Ordering Facility: [facility] Address: [address] [place] [address] Performed By: #### 3 3762-6, 37271-8, 99247-4 #### [facility] CLIA [id number] [address] [place] [address] [place] Creatinine [Mass/Vol] 0.78 mg/dL Normal 0.58-0.[address] [facility] Comment on above: Order Comment: Iqra pool Type: BLOOD SPECIMEN Ordering Facility: [facility] Address: [address] [place] [address] Performed By: #### 3 3762-6, 77481-6, 17676-5 #### [facility] CLIA [id number] [address] [place] [address] [place] Creatinine and Glomerular filtration rate.predicted panel (S/P/Bld) 92 mL/min/1.73m??? Normal >=[address] [facility] Comment on above: Order Comment: Iqra pool Type: BLOOD SPECIMEN Ordering Facility: [facility] Address: [address] [place] [address] Result Comment: Ct mated Glomerular Filtration Rate (eGFR) is calculated using the 2020 CKD-EPI creatinine equation. This equation utilizes serum creatinine, sex, and age as parameters. The creatinine assay has traceable calibration to isotope dilution-mass spectrometry. Refer to KDIGO guidelines for clinical interpretation. In patients with unstable renal function, e.g. those with acute kidney injury, the eGFR may not accurately reflect actual GFR. Performed By: #### 3 3762-6, 97800-6, 46150-0 #### [facility] CLIA [id number] [address] [place] [address] [place] Glucose [Mass/Vol] 533 mg/dL High 74-99 [facility] Comment on above: Order Comment: Iqra pool Type: BLOOD SPECIMEN Ordering Facility: [facility] Address: [address] [place] [address] Result Comment: The [place] Diabetes Association (ADA) provides guidance for cutoff values for fasting glucose and random glucose. The ADA defines fasting as no caloric intake for at least 8 hours. Fasting plasma glucose results between 100 to 125 mg/dL indicate increased risk for diabetes (prediabetes). Fasting plasma glucose results greater than or equal to 126 mg/dL meet the criteria for diagnosis of diabetes. In the absence of unequivocal hyperglycemia, results should be confirmed by repeat testing. In a patient with classic symptoms of hyperglycemia or hyperglycemic crisis, random plasma glucose results greater than or equal to 200 mg/dL meet the criteria for diagnosis of diabetes. Reference: Standards of Medical Care in Diabetes 2016, [place] [employer] Association. Diabetes Care. 2016.39(Suppl 1). Performed By: #### 3 3762-6, 23975-5, 68645-6 #### [facility] CLIA [id number] [address] [place] [address] [place] Potassium [Moles/Vol] 4.8 mmol/L Normal 3.7-5.[address] [facility] Comment on above: Order Comment: Speci men Type: BLOOD SPECIMEN Ordering Facility: [facility] Address: [address] [place] [address] Performed By: #### 3 3762-6, 77327-9, 71939-5 #### [facility] CLIA [id number] [address] [place] [address] [place] Protein [Mass/Vol] 6.7 g/dL Normal 6.3-8.0 [facility] Comment on above: Order Comment: Speci men Type: BLOOD SPECIMEN Ordering Facility: [facility] Address: [address] [place] [address] Performed By: #### 3 3762-6, 55551-7, 03108-2 #### [facility] CLIA [id number] [address] [place] [address] [place] Sodium [Moles/Vol] 127 mmol/L Low 136-144 [facility] Comment on above: Order Comment: Speci men Type: BLOOD SPECIMEN Ordering Facility: [facility] Address: [address] [place] [address] Performed By: #### 3 3762-6, 07815-0, 97669-5 #### [facility] CLIA [id number] [address] [place] [address] [place] Urea nitrogen [Mass/Vol] 20 mg/dL Normal 7-[address] [facility] Comment on above: Order Comment: Speci men Type: BLOOD SPECIMEN Ordering Facility: [facility] Address: [address] [place] [address] Performed By: #### 3 3762-6, 08246-9, 48820-4 #### [facility] CLIA [id number] [address] [facility] [address] [facility] ECG COMPLETEon 05-02-2024 ECG COMPLETE Ventricular Rate : 9 7 BPM Atrial Rate : 97 BPM P-R Interval : 168 ms QRS Duration : 76 ms Q-T Interval : 350 ms QTC Calculation(Bazett) : 444 ms Calculated P York : 38 degrees Calculated R York : -40 degrees Calculated T York : 103 degrees NORMAL SINUS RHYTHM POSSIBLE LEFT ATRIAL ENLARGEMENT LEFT AXIS DEVIATION MINIMAL VOLTAGE CRITERIA FOR LVH, MAY BE NORMAL VARIANT ( R in aVL ) Septal Infarct , AGE UNDETERMINED ABNORMAL ECG Confirmed by MD BROTHERS GREGORY () on 05/03/2024 1:22:27 PM NAME : MARIELLA RAMIREZ PID : [id number] : 1970 Gender : Female Race : ORD : [id number] Procedure Date : May 02 2024 08:41:27 Edit Date : May 03 2024 13:22:29 Diagnosis: NORMAL SINUS RHYTHM POSSIBLE LEFT ATRIAL ENLARGEMENT LEFT AXIS DEVIATION MINIMAL VOLTAGE CRITERIA FOR LVH, MAY BE NORMAL VARIANT ( R in aVL ) Septal Infarct , AGE UNDETERMINED ABNORMAL ECG Confirmed by MD BROTHERS GREGORY () on 05/03/2024 1:22:27 PM Test Reason : edema in legs Location : 185 : [facility] Overread By : MD BROTHERS GREGORY Edited By : MD BROTHERS GREGORY Referred By : , Acquired by : gi mae lpn, Normal [facility] HbA1c (Bld)on 05-02-2024 Average glucose Estimated from glycated hemoglobin (Bld) [Mass/Vol] 470 mg/dL Normal [facility] Comment on above: Order Comment: Speci men Type: BLOOD SPECIMEN Ordering Facility: [facility] Address: [address] [place] [address] Result Comment: eAG: (Estimated average glucose) is a calculated value from HgbA1c and is printing sales representative of the average blood glucose level in the last 2-3 month period. Performed By: #### 3 3762-6, 73572-3, 71461-7 #### [facility] CLIA [id number] [address] [place] [address] [place] HbA1c (Bld) [Mass fraction] 18.0 % High 4.3-5.[address] [facility] Comment on above: Order Comment: Iqra pool Type: BLOOD SPECIMEN Ordering Facility: [facility] Address: [address] [place] [address] Result Comment: The HbA1c value is greater than 15%. Interpret this hemoglobin A1c result within the patients clinical context. Consider the possibility of a hemoglobin variant interference. Consider ordering Fructosamine as an alternate measurement of glycemic control. If identification of a previously unidentified hemoglobin variant is clinically indicated, consider ordering the hemoglobin evaluation cascade test. [place] [employer] guidelines indicate that patients with HgbA1c in the range 5.7-6.4% are at increased risk for development of diabetes, and intervention by lifestyle modification may be beneficial. HgbA1c greater or equal to 6.5% is considered diagnostic of diabetes. Performed By: #### 3 3762-6, 27217-9, 82322-9 #### [facility] CLIA [id number] [address] [place] [address] [place] Lipid 1996 panelon 5 Cholesterol [Mass/Vol] 118 mg/dL Normal <[address] [facility] Comment on above: Order Comment: Iqra pool Type: BLOOD SPECIMEN Ordering Facility: [facility] Address: [address] [place] [address] Result Comment: <200 mg/dL, Desirable 200-239 mg/dL, Borderline high >239 mg/dL, High Performed By: #### 3 3762-6, 87786-7, 47950-4 #### [facility] CLIA [id number] [address] [place] [address] [place] Cholesterol in HDL [Mass/Vol] 58 mg/dL Normal >[address] [facility] Comment on above: Order Comment: Iqra pool Type: BLOOD SPECIMEN Ordering Facility: [facility] Address: [address] [place] [address] Result Comment: 40-5 9 mg/dL, Acceptable >59 mg/dL, High: Negative risk factor for coronary heart disease <40 mg/dL, Low: Positive risk factor for coronary heart disease Performed By: #### 3 3762-6, 57284-8, 49974-1 #### [facility] CLIA [id number] [address] [facility] [place] [address] [place] Cholesterol in LDL [Mass/Vol] 53 mg/dL Normal <[address] [facility] Comment on above: Order Comment: Samrai men Type: BLOOD SPECIMEN Ordering Facility: [facility] Address: [address] [place] [address] Result Comment: <100 mg/dL, Optimal 100-129 mg/dL, Near optimal/above optimal 130-159 mg/dL, Borderline high 160-189 mg/dL, High >189 mg/dL, Very high Secondary prevention optimal LDL Cholesterol levels are recommended to be < 70 mg/dL Performed By: #### 3 3762-6, 42577-2, 63409-8 #### [facility] CLIA [id number] [address] [place] [address] [place] Cholesterol in LDL/Cholesterol in HDL [Mass ratio] 0.91 {ratio} Normal <2.[address] [facility] Comment on above: Order Comment: Iqra pool Type: BLOOD SPECIMEN Ordering Facility: [facility] Address: [address] [place] [address] Result Comment: Madeline callejas: 1. National Cholesterol Education Program ATP III Guideline At-A-Glance Quick Desk Reference: National Heart, Lung, and Blood [place]. National Institutes of Health. 2001: NIH Publication No. 01-3305. 2. An International Atherosclerosis Society position paper: global recommendations for the management of dyslipidemia: executive summary, Atherosclerosis. 2014: 232(2):410-413. Performed By: #### 3 3762-6, 10929-2, 76170-5 #### [facility] CLIA [id number] [address] [place] [address] [place] Cholesterol in VLDL [Mass/Vol] 7 mg/dL Normal <[address] [facility] Comment on above: Order Comment: Speci men Type: BLOOD SPECIMEN Ordering Facility: [facility] Address: [address] [place] [address] Performed By: #### 3 3762-6, 28083-6, 58449-4 #### [facility] CLIA [id number] [address] [place] [address] [place] Cholesterol non HDL [Mass/Vol] 60 mg/dL Normal <[address] [facility] Comment on above: Order Comment: Speci men Type: BLOOD SPECIMEN Ordering Facility: [facility] Address: [address] [place] [address] Result Comment: <130 mg/dL, Optimal 130-159 mg/dL, Near optimal/above optimal 160-189 mg/dL, Borderline high 190-219 mg/dL, High >219 mg/dL, Very high Secondary prevention optimal non HDL Cholesterol levels are recommended to be <100 mg/dL Performed By: #### 3 3762-6, 37535-9, 27114-9 #### [facility] CLIA [id number] [address] [place] [address] [place] Cholesterol.total/C holesterol in HDL [Mass ratio] 2.03 {ratio} Normal <5.[address] [facility] Comment on above: Order Comment: Speci men Type: BLOOD SPECIMEN Ordering Facility: [facility] Address: [address] [place] [address] Performed By: #### 3 3762-6, , 87722-0 #### [facility] CLIA [id number] [address] [place], [place] [address] [place] FASTING TIME 12 hrs Normal [facility] Comment on above: Order Comment: Speci men Type: BLOOD SPECIMEN Ordering Facility: [facility] Address: [address] [place] [address] Performed By: #### 3 3762-6, 47161-1, 33078-4 #### [facility] CLIA [id number] [address] OF [place] Triglyceride [Mass/Vol] 34 mg/dL Normal <[address] [facility] Comment on above: Order Comment: Iqra pool Type: BLOOD SPECIMEN Ordering Facility: [facility] Address: [address] [place] [address] Result Comment: <150 mg/dL, Normal 150-199 mg/dL, Borderline high 200-499 mg/dL, High >499 mg/dL, Very high Performed By: #### 3 3762-6, 03011-2, 81557-9 #### [facility] CLIA [id number] [address] [place] [address] OF [place] NT-proBNP [facility] 05-02 Natriuretic peptide.B prohormone N-Terminal [Mass/Vol] 8555 pg/mL High <[address] [facility] Comment on above: Order Comment: Iqra pool Type: BLOOD SPECIMEN Ordering Facility: [facility] Address: [address] [place] [address] Performed By: #### 3 3762-6, 84123-6, 60092-2 #### [facility] CLIA [id number] [address] [place] [address] OF [place] CNOVon 05-01-2024 CNOV [facility] Visit ([facility] MARIELLA RAMIREZ ([id number]) 1970 F [facility] Date Time Provider Department 05/01/24 5:30 PM HERMILO TROTTER [facility] During your visit today, we recorded the following information about you: Temperature Pulse Respiration Blood pressure 98.3 degrees 104/minute 16/minute 154/90 Weight 73 kg Hermilo Trotter MD 05/01/2024 6:20 PM Signed Patient presents with: Edema: bilateral legs x 2 weeks, painful HPI: Patient presents to the [facility] with concerns for pneumonia. She had URI symptoms starting 2 weeks ago and someone at work had pneumonia. She has improving cough, nasal congestion, rhinorrhea, and sore throat. She is feeling very fatigued falling asleep while driving. She has had ongoing issues with leg edema which was significantly worse last week. She notes some numbness in her feet when the swelling is extreme or if she walks too much. She has shortness of breath, polyuria, and polydipsia. Occasionally feels her heart racing. Denies chest pain. Patient last seen in family medicine December 2022. She has been admitted to the hospital since she says about a year ago. Outside medical records show admission for DKA and hypertensive crisis at [facility] in October. She is not taking any of her prescription medications. She is instead using herbal supplements. No recent sugar checks. PAST MEDICAL HISTORY Diagnosis Date Constipation Coronary artery disease Diabetes mellitus without mention of complication Diabetes mellitus, gestational with last Hyperlipemia Hypertension Uncontrolled type 2 DM with proteinuria or microalbuminuria 07/04/2012 MEDICATIONS: metoprolol succinate ER (TOPROL XL) 100 mg Take 1 tablet by mouth two times a day. lisinopril (ZESTRIL) 10 mg tablet Take 1 tablet by mouth once daily. ticagrelor (BRILINTA) 90 mg tablet Take by mouth. [facility] atorvastatin (LIPITOR) 40 mg tablet TAKE 1 TABLET BY MOUTH ONCE DAILY AT BEDTIME FOR CHOLESTEROL insulin glargine (LANTUS SOLOSTAR U-100 INSULIN) 100 unit/mL (3 mL) Inject 30 Units subcutaneously daily at bedtime. insulin lispro (HUMALOG KWIKPEN INSULIN) 100 unit/mL 12 units 3 times daily (Patient taking differently: Inject 6 Units subcutaneously three times a day before meals. 12 units 3 times daily) blood sugar diagnostic (BLOOD GLUCOSE TEST) test strip Test blood sugar(s) one times daily. Dx: 250.00. Insulin: No BABY ASPIRIN ORAL Take by mouth. Cholecalciferol, Vitamin D3, (DIALYVITE VITAMIN D) 125 mcg (5,000 unit) cap Take 1 capsule by mouth once daily. Insulin Hume, Disposable, (BD ULTRA-FINE SONU PEN NEEDLE) 32 gauge x ndle 2Use one needle for each dose. 1/day. Lancets lancets Test blood sugar(s) 1 times daily. Dx: DM2. Insulin: No blood sugar diagnostic (RELION PRIME TEST STRIPS) test strip Diabetes mellitus type 2, non insulin dependent, testing 1x/day, Use as instructed ONETOUCH ULTRA TEST test strip USE TO CHECK GLUCOSE ONCE DAILY Blood-Glucose Meter (ONE TOUCH ULTRA 2) monitoring kit 1 Each as needed. One Touch Meter Kit Diagnosis: Diabetes Mellitus ibuprofen 800 mg tablet Take 1 tablet by mouth every 8 hours as needed (FOR PAIN. TAKE WITH FOOD). MULTI-VITAMIN ORAL Take by mouth. ALLERGIES: ALLERGIES Allergen Reactions Steffi Inhibitors Cough Latex Rash VITALS: BP 154/90 Pulse 104 Temp 36.8 ?C (98.3 ?F) Resp 16 Wt 73 kg (160 lb 15 oz) LMP 12/30/2021 (Approximate) SpO2 99% BMI 25.26 kg/m? Last 4 Encounter Wt Readings: Date: Wt: 05/01/2024 73 kg (160 lb 15 oz) 12/23/2022 72.8 kg (160 lb 9.6 oz) 09/16/2022 74.1 kg (163 lb 6.4 oz) 08/25/2022 65.3 kg (144 lb) PHYSICAL EXAM: GEN: pleasant, no acute distress, awake but somewhat drowsy. Accompanied by her daughter. HEENT: PERRL, EOMI, MMM NECK: supple, no lymphadenopathy, no thyromegaly HEART: borderline fast rate, regular rhythm, no murmurs LUNGS: diminished bases, no wheezes or crackles, no increased WOB EXT: no clubbing, no cyanosis, 1-2+ edema of the lower legs and feet. Reports sensation intact in toes. ASSESSMENT/PLAN: 1. SOB (shortness of breath) - ICD9: 786.05, ICD10: R06.02 (primary diagnosis) 2. Bilateral leg edema - ICD9: 782.3, ICD10: R60.0 - XR CHEST 2V FRONTAL/LAT Lungs and pleura: No consolidation. No lung mass. No pleural effusion. No pneumothorax. Cardiomediastinal silhouette: The cardiac silhouette appears mildly prominent accentuated by magnification related to the AP technique. Coronary artery stents are noted IMPRESSION: No acute radiographic abnormality No pneumonia or pulmonary edema of heart failure. Likely recent viral URI (includes COVID, flu, and RSV which are prevalent in the community). ER evaluation is more appropriate where more diagnostic testing is available to evaluate for ketoacidosis, heart failure, or DVT. She reports significant (more content not included)... Normal [facility] XR CHEST 2V FRONTAL/LATon XR CHEST 2V FRONTAL/LAT * * *Final Report* * * * * * SEE BOTTOM OF REPORT FOR ADDENDED TEXT * * * DATE OF EXAM: May 01 2024 5:48PM WOX [id number] - XR CHEST 2V FRONTAL/LAT / PROCEDURE REASON: multiple diagnoses * * * * Physician Interpretation * * * * * * * * * * * * ORIGINAL REPORT * * * * * * * * EXAMINATION: CHEST RADIOGRAPH (2 VIEW FRONTAL and LATERAL) CLINICAL HISTORY: SOB (shortness of breath) Bilateral leg edema MQ: XC2_6 EXAM DATE/TIME: 05/01/2024 5:48 PM COMPARISON: No relevant prior studies available. RESULT: Lines, tubes, and devices: None. Lungs and pleura: No consolidation. No lung mass. No pleural effusion. No pneumothorax. Cardiomediastinal silhouette: The cardiac silhouette appears mildly prominent accentuated by magnification related to the AP technique. Coronary artery stents are noted Bones and soft tissues: Degenerative changes are present within the thoracic spine. IMPRESSION: No acute radiographic abnormality. * * * * * * * * ADDENDUM #1 * * * * * * * * CORRECTION: The cardiac silhouette appears mildly prominent which may be related to the low volume film. Coronary artery stents are noted. Frequency Checker: PSCB Transcribe Date/Time: May 01 2024 6:46P Dictated by : KYLER CARR MD This examination was interpreted and the report reviewed and electronically signed by: KYLER CARR MD on May 01 2024 5:51PM EST This document has been addended by: KYLER CARR MD on May 01 2024 6:52PM EST [id number] Normal [facility] XR Chest PA and Lateralon Addendum by Provider , [facility] [place] on 05/01/2024 6:54 PM EST * * *Final Report* * * * * * SEE BOTTOM OF REPORT FOR ADDENDED TEXT * * * DATE OF EXAM: May 01 2024 5:48PM WOX [id number] - XR CHEST 2V FRONTAL/LAT / PROCEDURE REASON: multiple diagnoses * * * * Physician Interpretation * * * * * * * * * * * * ORIGINAL REPORT * * * * * * * * EXAMINATION: CHEST RADIOGRAPH (2 VIEW FRONTAL & LATERAL) CLINICAL HISTORY: SOB (shortness of breath) Bilateral leg edema MQ: XC2_6 EXAM DATE/TIME: 05/01/2024 5:48 PM COMPARISON: No relevant prior studies available. RESULT: Lines, tubes, and devices: None. Lungs and pleura: No consolidation. No lung mass. No pleural effusion. No pneumothorax. Cardiomediastinal silhouette: The cardiac silhouette appears mildly prominent accentuated by magnification related to the AP technique. Coronary artery stents are noted Bones and soft tissues: Degenerative changes are present within the thoracic spine. IMPRESSION: No acute radiographic abnormality. * * * * * * * * ADDENDUM #1 * * * * * * * * CORRECTION: The cardiac silhouette appears mildly prominent which may be related to the low volume film. Coronary artery stents are noted. Frequency Checker: PSCB Transcribe Date/Time: May 01 2024 6:46P Dictated by : KYLER CARR MD This examination was interpreted and the report reviewed and electronically signed by: KYLER CARR MD on May 01 2024 5:51PM EST This document has been addended by: KYLER CARR MD on May 01 2024 6:52PM EST [facility] Radiology Study observation (narrative) [facility] XR Chest PA and LateralOrder ed By: [facility] Provider on 05-01-2024 [facility] 02-02-2024 [facility] MARIELLA RAMIREZ ([id number]) 1970 F T Date Time Provider Department 02/02/24 GERBER PINA FAMWS During your visit today, we recorded the following information about you: Nichole Rosales 02/02/2024 10:55 AM Signed Marielal is calling Gerber Pina DO today requesting a refill on a discontinued medication BRILINTA 90 mg tablet Viji -Chayito Keys MA 02/02/2024 11:17 AM Signed Looks like pt is getting this from the [facility]. Sherlyn Hurst 02/02/2024 11:58 AM Signed Patient called back to check on status of request. Advised her we are waiting on a reply from pcp. She'd like a call back as soon as possible. [phone] Gerber Pina DO 02/05/2024 5:01 PM Signed This needs to be addressed by Hot Stick Man DO Jason Lutz M Robin, RN 02/06/2024 8:07 AM Signed Phoned patient and given provider's message below. Patient agreeable. Allergies As of Date: 02/02/2024 Noted Allergy Reaction STEFFI INHIBITORS 01/29/2014 3 - Cough LATEX 09/21/2011 2 - Rash Date Reviewed: 12/23/2022 Reviewed by: Gi Mae LPN - Fully Assessed Reason for Visit: Medication Request [138] Prescriptions as of 02/06/2024 - metoprolol succinate ER (TOPROL XL) 100 mg Take 1 tablet by mouth two times a day. - lisinopril (ZESTRIL) 10 mg tablet Take 1 tablet by mouth once daily. - ticagrelor (BRILINTA) 90 mg tablet Take by mouth. [facility] - atorvastatin (LIPITOR) 40 mg tablet TAKE 1 TABLET BY MOUTH ONCE DAILY AT BEDTIME FOR CHOLESTEROL - insulin glargine (LANTUS SOLOSTAR U-100 INSULIN) 100 unit/mL (3 mL) Inject 30 Units subcutaneously daily at bedtime. - insulin lispro (HUMALOG KWIKPEN INSULIN) 100 unit/mL 12 units 3 times daily - blood sugar diagnostic (BLOOD GLUCOSE TEST) test strip Test blood sugar(s) one times daily. Dx: 250.00. Insulin: No - BABY ASPIRIN ORAL Take by mouth. - Cholecalciferol, Vitamin D3, (DIALYVITE VITAMIN D) 125 mcg (5,000 unit) cap Take 1 capsule by mouth once daily. - Insulin Hume, Disposable, (BD ULTRA-FINE SONU PEN NEEDLE) 32 gauge x 5/32 ndle 2Use one needle for each dose. 1/day. - Lancets lancets Test blood sugar(s) 1 times daily. Dx: DM2. Insulin: No - blood sugar diagnostic (RELION PRIME TEST STRIPS) test strip Diabetes mellitus type 2, non insulin dependent, testing 1x/day, Use as instructed - ONETOUCH ULTRA TEST test strip USE TO CHECK GLUCOSE ONCE DAILY - Blood-Glucose Meter (ONE TOUCH ULTRA 2) monitoring kit 1 Each as needed. One Touch Meter Kit Diagnosis: Diabetes Mellitus - ibuprofen 800 mg tablet Take 1 tablet by mouth every 8 hours as needed (FOR PAIN. TAKE WITH FOOD). - MULTI-VITAMIN ORAL Take by mouth. 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 .Auto Diffon 11-11-2023 Basophil, Absolute 0.1 10 3/mcL Normal 0.0-0.3 [facility] ([place]) Comment on above: Performed By: #### T JUAN BENITEZ LIP, BHB #### [address] [address] Basophils/100 WBC (Bld) 0.5 % Normal 0.0-2.5 [facility] ([place]) Comment on above: Performed By: #### T JUAN BENITEZ LIP, BHB #### [address] [address] Eosinophil, Absolute 0.0 10 3/mcL Normal 0.0-0.7 [facility] ([place]) Comment on above: Performed By: #### T ELI DRUGS, LIP, BHB #### [address] [address] Eosinophils/100 WBC (Bld) 0.0 % Normal 0.0-6.0 [facility] ([place]) Comment on above: Performed By: #### T ELI, DRUGS, LIP, BHB #### [address] [address] Lymphocyte, Absolute 0.9 10 3/mcL Normal 0.9-4.3 [facility] ([place]) Comment on above: Performed By: #### T ELI, DRUGS, LIP, BHB #### [address] [address] Lymphocytes/100 WBC (Bld) 7.3 % Low 20.0-40.0 [facility] ([place]) Comment on above: Performed By: #### T ELI, DRUGS, LIP, BHB #### [address] [address] Monocyte, Absolute 0.5 10 3/mcL Normal 0.1-1.4 [facility] ([place]) Comment on above: Performed By: #### T ELI, DRUGS, LIP, BHB #### [address] [address] Monocytes/100 WBC (Bld) 4.5 % Normal 2.0-13.0 [facility] ([place]) Comment on above: Performed By: #### T ELI, DRUGS, LIP, BHB #### [address] [address] Neutrophils/100 WBC (Bld) 87.7 % High 50.0-75.0 [facility] ([place]) Comment on above: Performed By: #### T ELI, DRUGS, LIP, BHB #### [address] [address] .GFRon 11-11-2023 GFR >60 Normal [facility] ([place]) Comment on above: Result Comment: GFR Population mean for , Non- Americans Ages 20-29 = 116 mL/min/1.73 sq.m. Ages 30-39 = 107 mL/min/1.73 sq.m. Ages 40-49 = 99 mL/min/1.73 sq.m. Ages 50-59 = 93 mL/min/1.73 sq.m. Ages 60-69 = 85 mL/min/1.73 sq.m. Ages 70+ = 75 mL/min/1.73 sq.m. Chronic Kidney Disease: Less than 60 mL/min/1.73 square meters End Stage Renal Disease: Less than 15 mL/min/1.73 square meters Performed By: #### T JUAN BENITEZ LIP, BHB #### [address] [address] GFR Non- >60 Normal [facility] ([place]) Comment on above: Result Comment: GFR Population mean for , Non- Americans Ages 20-29 = 116 mL/min/1.73 sq.m. Ages 30-39 = 107 mL/min/1.73 sq.m. Ages 40-49 = 99 mL/min/1.73 sq.m. Ages 50-59 = 93 mL/min/1.73 sq.m. Ages 60-69 = 85 mL/min/1.73 sq.m. Ages 70+ = 75 mL/min/1.73 sq.m. Chronic Kidney Disease: Less than 60 mL/min/1.73 square meters End Stage Renal Disease: Less than 15 mL/min/1.73 square meters Performed By: #### T JUAN BENITEZ LIP, BHB #### [address] [address] .NEUABSon 11-11-2023 Neutrophil, Absolute 10.4 10 3/mcL High 2.3-8.1 [facility] ([place]) Comment on above: Performed By: #### T JUAN BENITEZ LIP BHB #### [address] [address] BMPon 11-11-2023 BUN/Creatinine Ratio 20.5 ratio Normal 10.0-22.0 [facility] ([place]) Comment on above: Performed By: #### T JUAN BENITEZ LIP, CAMPOSB #### [address] [address] Calcium [Mass/Vol] 8.6 mg/dL Low 8.7-10.4 [facility] ([place]) Comment on above: Performed By: #### T JUAN BENITEZ LIP, CAMPOSB #### [address] [address] Chloride [Moles/Vol] 103 mmol/L Normal 98-110 [facility] ([place]) Comment on above: Performed By: #### T JUAN BENITEZ LIP, CAMPOSB #### [address] [address] CO2 [Moles/Vol] 27 mmol/L Normal 22-32 [facility] ([place]) Comment on above: Performed By: #### T JUAN BENITEZ LIP, CAMPOSB #### [address] [address] Creatinine [Mass/Vol] 0.78 mg/dL Normal 0.50-1.20 [facility] ([place]) Comment on above: Performed By: #### T JUAN BENITEZ LIP, BHB #### [address] [address] Electrolyte Balance 6.0 mEq/L Normal 4.0-15.0 [facility] ([place]) Comment on above: Performed By: #### T JUAN BENITEZ LIP, BHB #### [address] [address] Glucose [Mass/Vol] 88 mg/dL Normal 70-110 [facility] ([place]) Comment on above: Performed By: #### T JUAN BENITEZ LIP, CAMPOSB #### [address] [address] Potassium [Moles/Vol] 3.5 mmol/L Normal 3.5-5.0 [facility] ([place]) Comment on above: Performed By: #### T ELI DRUGS LIP, CAMPOSB #### [address] [address] Sodium [Moles/Vol] 136 mmol/L Normal 136-145 [facility] ([place]) Comment on above: Performed By: #### T JUAN BENITEZ LIP, BHB #### [place] [address] Urea nitrogen [Mass/Vol] 16.0 mg/dL Normal 8.0-22.0 [facility] ([place]) Comment on above: Performed By: #### T JUAN BENITEZ LIP, BHB #### [place] [address] CBCon 11-11-2023 Erythrocyte distribution width (RBC) [Ratio] 13.4 % Normal 11.5-15.5 [facility] ([place]) Comment on above: Performed By: #### T JUAN BENITEZ LIP, BHB #### [place] [address] Hematocrit (Bld) [Volume fraction] 34.2 % Normal 34.0-46.0 [facility] ([place]) Comment on above: Performed By: #### T JUNA BENITEZ LIP, BHB #### [place] [address] Hgb 11.3 G/dL Low 12.0-16.0 [facility] ([place]) Comment on above: Performed By: #### T JUAN BENITEZ LIP, BHB #### [place] [address] MCH (RBC) [Entitic mass] 28.2 pg Normal 27.0-33.0 [facility] ([place]) Comment on above: Performed By: #### T JUAN BENITEZ LIP, BHB #### [place] [address] MCHC 33.1 G/dL Normal 32.0-36.0 [facility] ([place]) Comment on above: Performed By: #### T ELI DRUGS LIP, BHB #### [place] [address] MCV (RBC) [Entitic vol] 85.3 fL Normal 80.0-99.0 [facility] ([place]) Comment on above: Performed By: #### T JUAN BENITEZ LIP, BHB #### [address] [address] Platelet 420 10 3/mcL Normal 150-450 [facility] ([place]) Comment on above: Performed By: #### T JUAN BENITEZ LIP, BHB #### [place] [address] Platelet mean volume (Bld) [Entitic vol] 8.2 fL Normal 6.6-10.5 [facility] ([place]) Comment on above: Performed By: #### T JUAN BENITEZ LIP, BHB #### [place] [address] RBC 4.01 10 6/mcL Low 4.10-5.30 [facility] ([place]) Comment on above: Performed By: #### JUAN HOFF LIP, BHB #### [place] [id number] WBC 11.9 10 3/mcL High 4.5-10.8 [facility] ([place]) Comment on above: Performed By: #### JUAN HOFF LIP, BHB #### [address] [address] LABORATORYOrdered By: Estefani Persaud on 11-11-2023 Glucose [Mass/Vol] 101 mg/dL Normal 70 - 110 mg/dL [facility] Work Phone: LABORATORYOrdered By: SYSTEM SYSTEM on 11-11-2023 Basophils (Bld) [#/Vol] 0.1 103/mcL Normal 0.0 - 0.3 10^3/mcL AH Workflow SS Basophils/100 WBC (Bld) 0.5 % Normal 0.0 - 2.5 % AH Workflow SS Calcium [Mass/Vol] 8.6 mg/dL Low 8.7 - 10. 4 mg/dL AH ADM SS Chloride [Moles/Vol] 103 mmol/L Normal 98 - 110 mEq/L AH ADM SS CO2 [Moles/Vol] 27 mmol/L Normal 22 - 32 mEq/L AH ADM SS Creatinine [Mass/Vol] 0.78 mg/dL Normal 0.50 - 1.20 mg/dL AH ADM SS Electrolyte Balance 6.0 mEq/L Normal 4.0 - 15 .0 mEq/L AH ADM SS Eosinophils (Bld) [#/Vol] 0.0 103/mcL Normal 0.0 - 0.7 10^3/mcL AH Workflow SS Eosinophils/100 WBC (Bld) 0.0 % Normal 0.0 - 6.0 % Workflow SS Erythrocyte distribution width (RBC) [Ratio] 13.4 % Normal 11.5 - 15.5 % Workflow SS GFR/1.73 sq M.predicted among blacks MDRD (S/P/Bld) [Vol rate/Area] ml/min/1.73sqm Invalid Interpretation Code [employer] Chemistry S Comment on above: Interpretive Data: GFR Population mean for , Non- Americans Ages 20-29 = 116 mL/min/1.73 sq.m. Ages 30-39 = 107 mL/min/1.73 sq.m. Ages 40-49 = 99 mL/min/1.73 sq.m. Ages 50-59 = 93 mL/min/1.73 sq.m. Ages 60-69 = 85 mL/min/1.73 sq.m. Ages 70+ = 75 mL/min/1.73 sq.m. Chronic Kidney Disease: Less than 60 mL/min/1.73 square meters End Stage Renal Disease: Less than 15 mL/min/1.73 square meters GFR/1.73 sq M.predicted among non-blacks MDRD (S/P/Bld) [Vol rate/Area] ml/min/1.73sqm Invalid Interpretation Code [employer] Chemistry S Comment on above: Interpretive Data: GFR Population mean for , Non- Americans Ages 20-29 = 116 mL/min/1.73 sq.m. Ages 30-39 = 107 mL/min/1.73 sq.m. Ages 40-49 = 99 mL/min/1.73 sq.m. Ages 50-59 = 93 mL/min/1.73 sq.m. Ages 60-69 = 85 mL/min/1.73 sq.m. Ages 70+ = 75 mL/min/1.73 sq.m. Chronic Kidney Disease: Less than 60 mL/min/1.73 square meters End Stage Renal Disease: Less than 15 mL/min/1.73 square meters Glucose [Mass/Vol] 88 mg/dL Normal 70 - 110 mg/dL ADM SS Hematocrit (Bld) [Volume fraction] 34.2 % Normal 34.0 - 46.0 % AH Workflow SS Hemoglobin (Bld) [Mass/Vol] 11.3 G/dL Low 12.0 - 16.0 G/dL AH Workflow SS Lymphocytes (Bld) [#/Vol] 0.9 103/mcL Normal 0.9 - 4.3 10^3/mcL AH Workflow SS Lymphocytes/100 WBC (Bld) 7.3 % Low 20.0 - 40.0 % AH Workflow SS MCH (RBC) [Entitic mass] 28.2 pg Normal 27.0 - 33.0 pg AH Workflow SS MCHC 33.1 G/dL Normal 32.0 - 36.0 G/dL AH Workflow SS MCV (RBC) [Entitic vol] 85.3 fL Normal 80.0 - 99.0 fL AH Workflow SS Monocytes (Bld) [#/Vol] 0.5 103/mcL Normal 0.1 - 1.4 10^3/mcL AH Workflow SS Monocytes/100 WBC (Bld) 4.5 % Normal 2.0 - 13.0 % AH Workflow SS Neutrophils (Bld) [#/Vol] 10.4 103/mcL High 2.3 - 8.1 10^3/mcL AH Workflow SS Neutrophils/100 WBC (Bld) 87.7 % High 50.0 - 75.0 % AH Workflow SS Platelet mean volume (Bld) [Entitic vol] 8.2 fL Normal 6.6 - 10.5 fL AH Workflow SS Platelets (Bld) [#/Vol] 420 103/mcL Normal 150 - 450 10^3/mcL AH Workflow SS Potassium [Moles/Vol] 3.5 mmol/L Normal 3.5 - 5.0 mEq/L ADM SS RBC (Bld) [#/Vol] 4.01 106/mcL Low 4.10 - 5.30 10^6/mcL AH Workflow SS Sodium [Moles/Vol] 136 mmol/L Normal 136 - 145 mEq/L ADM SS Urea nitrogen [Mass/Vol] 16.0 mg/dL Normal 8.0 - 22.0 mg/dL ADM SS Urea nitrogen/Creatinine [Mass ratio] 20.5 ratio Normal 10.0 - 22.0 ratio AH ADM SS WBC (Bld) [#/Vol] 11.9 103/mcL High 4.5 - 10.8 10^3/mcL AH Workflow SS LABORATORYOrdered By: Harish Romero on 11-11-2023 Glucose [Mass/Vol] 93 mg/dL Normal 70 - 110 mg/dL [facility] Work Phone: .Auto Diffon 11-10-2023 Basophil, Absolute 0.1 10 3/mcL Normal 0.0-0.3 [facility] ([place]) Comment on above: Performed By: #### A LEDA, ADIFF, CMP, CBC, GFR #### [address] [address] Basophils/100 WBC (Bld) 0.7 % Normal 0.0-2.5 [facility] ([place]) Comment on above: Performed By: #### A LEDA, ADIFF, CMP, CBC, GFR #### [address] [address] Eosinophil, Absolute 0.0 10 3/mcL Normal 0.0-0.7 [facility] ([place]) Comment on above: Performed By: #### A LEDA, ADIFF, CMP, CBC, GFR #### [address] [address] Eosinophils/100 WBC (Bld) 0.0 % Normal 0.0-6.0 [facility] ([place]) Comment on above: Performed By: #### A LEDA, ADIFF, CMP, CBC, GFR #### [address] [address] Lymphocyte, Absolute 0.7 10 3/mcL Low 0.9-4.3 [facility] ([place]) Comment on above: Performed By: #### A LEDA, ADIFF, CMP, CBC, GFR #### [address] [address] Lymphocytes/100 WBC (Bld) 5.4 % Low 20.0-40.0 [facility] ([place]) Comment on above: Performed By: #### A LEDA, ADIFF, CMP, CBC, GFR #### [address] [address] Monocyte, Absolute 0.9 10 3/mcL Normal 0.1-1.4 [facility] ([place]) Comment on above: Performed By: #### A LEDA, ADIFF, CMP, CBC, GFR #### [address] [address] Monocytes/100 WBC (Bld) 7.1 % Normal 2.0-13.0 [facility] ([place]) Comment on above: Performed By: #### A LEDA, ADIFF, CMP, CBC, GFR #### [address] [address] Neutrophils/100 WBC (Bld) 86.8 % High 50.0-75.0 [facility] ([place]) Comment on above: Performed By: #### A LEDA, ADIFF, CMP, CBC, GFR #### [address] [address] .GFRon 11-10-2023 GFR Non- >60 Normal [facility] ([place]) Comment on above: Result Comment: GFR Population mean for , Non- Americans Ages 20-29 = 116 mL/min/1.73 sq.m. Ages 30-39 = 107 mL/min/1.73 sq.m. Ages 40-49 = 99 mL/min/1.73 sq.m. Ages 50-59 = 93 mL/min/1.73 sq.m. Ages 60-69 = 85 mL/min/1.73 sq.m. Ages 70+ = 75 mL/min/1.73 sq.m. Chronic Kidney Disease: Less than 60 mL/min/1.73 square meters End Stage Renal Disease: Less than 15 mL/min/1.73 square meters Performed By: #### T ROPHS, DRUGS, LIP, BHB #### [address] [address] GFR >60 Normal [facility] ([place]) Comment on above: Result Comment: GFR Population mean for , Non- Americans Ages 20-29 = 116 mL/min/1.73 sq.m. Ages 30-39 = 107 mL/min/1.73 sq.m. Ages 40-49 = 99 mL/min/1.73 sq.m. Ages 50-59 = 93 mL/min/1.73 sq.m. Ages 60-69 = 85 mL/min/1.73 sq.m. Ages 70+ = 75 mL/min/1.73 sq.m. Chronic Kidney Disease: Less than 60 mL/min/1.73 square meters End Stage Renal Disease: Less than 15 mL/min/1.73 square meters Performed By: #### T JUAN BENITEZ LIP, BHB #### [address] [address] .NEUABSon 11-10-2023 Neutrophil, Absolute 11.5 10 3/mcL High 2.3-8.1 [facility] ([place]) Comment on above: Performed By: #### A LEDA, ADIFF, CMP, CBC, GFR #### [address] [address] A1Con 11-10-2023 Glucose [Mass/Vol] 415 mg/dL Normal [facility] ([place]) Comment on above: Result Comment: Ct mated Average Glucose calculated by equation ((28.7xA1C)-46.7) Estimated average glucose (eAG) is a calculated value from Hemoglobin A1C and is printing sales representative of the average blood glucose level in the last 2-3 month period. Normal range: less than 114 mg/dL Performed By: #### T JUAN BENITEZ LIP, BHB #### [address] [address] HbA1c (Bld) [Mass fraction] 16.1 % High 4.0-6.0 [facility] ([place]) Comment on above: Performed By: #### T JUAN BENITEZ LIP, BHB #### [address] [address] CBCon 11-10-2023 Erythrocyte distribution width (RBC) [Ratio] 13.3 % Normal 11.5-15.5 [facility] ([place]) Comment on above: Performed By: #### A LEDA, ADIFF, CMP, CBC, GFR #### [address] [address] Hematocrit (Bld) [Volume fraction] 33.1 % Low 34.0-46.0 [facility] ([place]) Comment on above: Performed By: #### A LEDA, ADIFF, CMP, CBC, GFR #### [place] [address] Hgb 10.9 G/dL Low 12.0-16.0 [facility] ([place]) Comment on above: Performed By: #### A LEDA, ADIFF, CMP, CBC, GFR #### [place] [address] MCH (RBC) [Entitic mass] 28.2 pg Normal 27.0-33.0 [facility] ([place]) Comment on above: Performed By: #### A LEDA, ADIFF, CMP, CBC, GFR #### [place] [address] MCHC 32.8 G/dL Normal 32.0-36.0 [facility] ([place]) Comment on above: Performed By: #### A LEDA, ADIFF, CMP, CBC, GFR #### [place] [address] MCV (RBC) [Entitic vol] 85.9 fL Normal 80.0-99.0 [facility] ([place]) Comment on above: Performed By: #### A LEDA, ADIFF, CMP, CBC, GFR #### [place] [address] Platelet 364 10 3/mcL Normal 150-450 [facility] ([place] Comment on above: Performed By: #### A LEDA, ADIFF, CMP, CBC, GFR #### [place] [address] Platelet mean volume (Bld) [Entitic vol] 9.1 fL Normal 6.6-10.5 [facility] ([place]) Comment on above: Performed By: #### A LEDA, ADIFF, CMP, CBC, GFR #### [place] [address] RBC 3.85 10 6/mcL Low 4.10-5.30 [facility] ([place] Comment on above: Performed By: #### A LEDA, ADIFF, CMP, CBC, GFR #### [address] [address] WBC 13.3 10 3/mcL High 4.5-10.8 [facility] ([place] Comment on above: Performed By: #### A LEDA, ADIFF, CMP, CBC, GFR #### [place] [id number] CKon 11-10-2023 CK [Catalytic activity/Vol] 217 U/L High 7-185 [facility] ([place]) Comment on above: Performed By: #### T ROPTIMOTEO, DRUGS, LIP, BHB #### [place] [id number] CMPon 11-10-2023 Albumin Level 3.3 G/dL Normal 3.2-4.8 [facility] ([place] Comment on above: Performed By: #### T ELI, DRUGS, LIP, BHB #### [place] [address] Albumin/Globulin [Mass ratio] 0.9 {ratio} Normal 0.9-1.6 [facility] ([place] Comment on above: Performed By: #### T ROPTIMOTEO, DRUGS, LIP, BHB #### [place] [address] ALP [Catalytic activity/Vol] 80 U/L Normal 38-126 [facility] ([place] Comment on above: Performed By: #### T ROPTIMOTEO, DRUGS, LIP, BHB #### [place] [id number] ALT [Catalytic activity/Vol] 30 U/L Normal 10-49 [facility] ([place] Comment on above: Performed By: #### T ROPHS, DRUGS, LIP, BHB #### [place] [id number] AST [Catalytic activity/Vol] 31 U/L Normal 8-34 [facility] ([place] Comment on above: Performed By: #### T ROPHS, DRUGS, LIP, BHB #### [place] [address] Bili Total 0.50 mg/dL Normal 0.20-1.20 [facility] ([place]) Comment on above: Result Comment: Use of this assay is not recommended for patients undergoing treatment with eltrombopag due to the potential for falsely elevated results. Performed By: #### T JUAN BENITEZ LIP, BHB #### [address] [address] BUN/Creatinine Ratio 25.0 ratio High 10.0-22.0 [facility] ([place] Comment on above: Performed By: #### T JUAN BENITEZ LIP, BHB #### [address] [address] Calcium [Mass/Vol] 9.5 mg/dL Normal 8.7-10.4 [facility] ([place]) Comment on above: Performed By: #### T JUAN BENITEZ LIP, BHB #### [address] [address] Chloride [Moles/Vol] 107 mmol/L Normal 98-110 [facility] ([place] Comment on above: Performed By: #### T JUAN BENITEZ LIP, BHB #### [address] [address] CO2 [Moles/Vol] 24 mmol/L Normal 22-32 [facility] ([place] Comment on above: Performed By: #### T JUAN BENITEZ, LIP, BHB #### [address] [address] Creatinine [Mass/Vol] 0.80 mg/dL Normal 0.50-1.20 [facility] ([place] Comment on above: Performed By: #### T ELI DRUGS, LIP, BHB #### [address] [address] Electrolyte Balance 10.0 mEq/L Normal 4.0-15.0 [facility] ([place]) Comment on above: Performed By: #### T ELI DRUGS, LIP, BHB #### [address] [address] Globulin 3.7 G/dL Normal 1.5-3.8 [facility] ([place] Comment on above: Performed By: #### T JUAN BENITEZ LIP, BHB #### [address] [address] Glucose [Mass/Vol] 201 mg/dL High 70-110 [facility] ([place]) Comment on above: Performed By: #### T JUAN BENITEZ LIP, BHB #### [address] [address] Potassium [Moles/Vol] 4.8 mmol/L Normal 3.5-5.0 [facility] ([place] Comment on above: Performed By: #### T JUAN BENITEZ LIP, BHB #### [address] [address] Sodium [Moles/Vol] 141 mmol/L Normal 136-145 [facility] ([place]) Comment on above: Performed By: #### JUAN HOFF LIP, BHB #### [address] [address] Total Protein 7.0 G/dL Normal 5.7-8.2 [facility] ([place]) Comment on above: Result Comment: No te - New Reference Range in effect 19 Performed By: #### T JUAN BENITEZ LIP, BHB #### [address] [address] Urea nitrogen [Mass/Vol] 20.0 mg/dL Normal 8.0-22.0 [facility] ([place] Comment on above: Performed By: #### T JUAN BENITEZ LIP, BHB #### [address] [address] LABORATORYOrdered By: Josee Turner on 11-10-2023 Glucose [Mass/Vol] 236 mg/dL High 70 - 110 mg/dL [facility] Work Phone: LABORATORYOrdered By: Liz lyles on 11-10-2023 Blood Glucose Testing Reason Routine (11/10/23 9:33 PM) [facility] Work Phone: LABORATORYOrdered By: SYSTEM SYSTEM on 11-10-2023 Troponin I.cardiac DL <= 0.01 ng/mL [Mass/Vol] 125 ng/L High 0 - 34 ng/L AH ADM SS Comment on above: Interpretive Data: High Sensitive Troponin I Reference Ranges: Female: 0-34 ng/L Male: 0-54 ng/L Testing performed on Skycheck[employer] analyzer using direct chemiluminescent technology. Albumin BCP dye [Mass/Vol] 3.3 G/dL Normal 3.2 - 4.8 G/dL AH ADM SS Albumin/Globulin [Mass ratio] 0.9 {ratio} Normal 0.9 - 1.6 ratio AH ADM SS ALP [Catalytic activity/Vol] 80 U/L Normal 38 - 126 U/L AH ADM SS ALT No additional P-5'-P [Catalytic activity/Vol] 30 U/L Normal 10 - 49 U/L AH ADM SS AST [Catalytic activity/Vol] 31 U/L Normal 8 - 34 U/L AH ADM SS Basophils (Bld) [#/Vol] 0.1 103/mcL Normal 0.0 - 0.3 10^3/mcL Workflow SS Basophils/100 WBC (Bld) 0.7 % Normal 0.0 - 2.5 % Workflow SS Bilirubin [Mass/Vol] 0.50 mg/dL Normal 0.20 - 1.20 mg/dL AH ADM SS Comment on above: Interpretive Data: U se of this assay is not recommended for patients undergoing treatment with eltrombopag due to the potential for falsely elevated results. Calcium [Mass/Vol] 9.5 mg/dL Normal 8.7 - 10. 4 mg/dL AH ADM SS Chloride [Moles/Vol] 107 mmol/L Normal 98 - 110 mEq/L AH ADM SS CK [Catalytic activity/Vol] 217 U/L High 7 - 185 U/L AH ADM SS CO2 [Moles/Vol] 24 mmol/L Normal 22 - 32 mEq/L AH ADM SS Creatinine [Mass/Vol] 0.80 mg/dL Normal 0.50 - 1.20 mg/dL AH ADM SS Electrolyte Balance 10.0 mEq/L Normal 4.0 - 15 .0 mEq/L AH ADM SS Eosinophils (Bld) [#/Vol] 0.0 103/mcL Normal 0.0 - 0.7 10^3/mcL Workflow SS Eosinophils/100 WBC (Bld) 0.0 % Normal 0.0 - 6.0 % Workflow SS Erythrocyte distribution width (RBC) [Ratio] 13.3 % Normal 11.5 - 15.5 % Workflow SS GFR/1.73 sq M.predicted among blacks MDRD (S/P/Bld) [Vol rate/Area] ml/min/1.73sqm Invalid Interpretation Code AH Chemistry S Comment on above: Interpretive Data: GFR Population mean for , Non- Americans Ages 20-29 = 116 mL/min/1.73 sq.m. Ages 30-39 = 107 mL/min/1.73 sq.m. Ages 40-49 = 99 mL/min/1.73 sq.m. Ages 50-59 = 93 mL/min/1.73 sq.m. Ages 60-69 = 85 mL/min/1.73 sq.m. Ages 70+ = 75 mL/min/1.73 sq.m. Chronic Kidney Disease: Less than 60 mL/min/1.73 square meters End Stage Renal Disease: Less than 15 mL/min/1.73 square meters GFR/1.73 sq M.predicted among non-blacks MDRD (S/P/Bld) [Vol rate/Area] ml/min/1.73sqm Invalid Interpretation Code Chemistry S Comment on above: Interpretive Data: GFR Population mean for , Non- Americans Ages 20-29 = 116 mL/min/1.73 sq.m. Ages 30-39 = 107 mL/min/1.73 sq.m. Ages 40-49 = 99 mL/min/1.73 sq.m. Ages 50-59 = 93 mL/min/1.73 sq.m. Ages 60-69 = 85 mL/min/1.73 sq.m. Ages 70+ = 75 mL/min/1.73 sq.m. Chronic Kidney Disease: Less than 60 mL/min/1.73 square meters End Stage Renal Disease: Less than 15 mL/min/1.73 square meters Globulin 3.7 G/dL Normal 1.5 - 3.8 G/dL ADM SS Glucose [Mass/Vol] 201 mg/dL High 70 - 110 mg/dL ADM SS Glucose [Mass/Vol] 415 mg/dL Invalid Interpretation Code Auto Chem SS Comment on above: Interpretive Data: E stimated average glucose (eAG) is a calculated value from Hemoglobin A1C and is printing sales representative of the average blood glucose level in the last 2-3 month period. Normal range: less than 114 mg/dL HbA1c (Bld) [Mass fraction] 16.1 % High 4.0 - 6.0 % Auto Chem SS Hematocrit (Bld) [Volume fraction] 33.1 % Low 34.0 - 46.0 % AH Workflow SS Hemoglobin (Bld) [Mass/Vol] 10.9 G/dL Low 12.0 - 16.0 G/dL AH Workflow SS Lymphocytes (Bld) [#/Vol] 0.7 103/mcL Low 0.9 - 4.3 10^3/mcL AH Workflow SS Lymphocytes/100 WBC (Bld) 5.4 % Low 20.0 - 40.0 % AH Workflow SS Magnesium [Mass/Vol] 2.0 mg/dL Normal 1.6 - 2.4 mg/dL ADM SS MCH (RBC) [Entitic mass] 28.2 pg Normal 27.0 - 33.0 pg AH Workflow SS MCHC 32.8 G/dL Normal 32.0 - 36.0 G/dL AH Workflow SS MCV (RBC) [Entitic vol] 85.9 fL Normal 80.0 - 99.0 fL AH Workflow SS Monocytes (Bld) [#/Vol] 0.9 103/mcL Normal 0.1 - 1.4 10^3/mcL AH Workflow SS Monocytes/100 WBC (Bld) 7.1 % Normal 2.0 - 13.0 % AH Workflow SS Neutrophils (Bld) [#/Vol] 11.5 103/mcL High 2.3 - 8.1 10^3/mcL AH Workflow SS Neutrophils/100 WBC (Bld) 86.8 % High 50.0 - 75.0 % AH Workflow SS Platelet mean volume (Bld) [Entitic vol] 9.1 fL Normal 6.6 - 10.5 fL AH Workflow SS Platelets (Bld) [#/Vol] 364 103/mcL Normal 150 - 450 10^3/mcL AH Workflow SS Potassium [Moles/Vol] 4.8 mmol/L Normal 3.5 - 5.0 mEq/L ADM SS Protein [Mass/Vol] 7.0 G/dL Normal 5.7 - 8.2 G/dL ADM SS Comment on above: Interpretive Data: * *Note - New Reference Range in effect 19 RBC (Bld) [#/Vol] 3.85 106/mcL Low 4.10 - 5.30 10^6/mcL AH Workflow SS Sodium [Moles/Vol] 141 mmol/L Normal 136 - 145 mEq/L AH ADM SS Urea nitrogen [Mass/Vol] 20.0 mg/dL Normal 8.0 - 22.0 mg/dL AH ADM SS Urea nitrogen/Creatinine [Mass ratio] 25.0 ratio High 10.0 - 22.0 ratio AH ADM SS WBC (Bld) [#/Vol] 13.3 103/mcL High 4.5 - 10.8 10^3/mcL Workflow SS Magnesium [Mass/Vol] 1.8 mg/dL Normal 1.6 - 2.4 mg/dL AH ADM SS Phosphate [Mass/Vol] 2.2 mg/dL Low 2.4 - 5.1 mg/dL AH ADM SS Comment on above: Interpretive Data: * *Note - New Reference Range in effect 19 Troponin I.cardiac DL <= 0.01 ng/mL [Mass/Vol] 52 ng/L High 0 - 34 ng/L ADM SS Comment on above: Interpretive Data: High Sensitive Troponin I Reference Ranges: Female: 0-34 ng/L Male: 0-54 ng/L Testing performed on [employer] analyzer using direct chemiluminescent technology. LABORATORYOrdered By: Lucia Beltran on 11-10-2023 pH (Bld) 7.410 [pH] Normal 7.380 - 7.460 Main Rapid Comm SS MGon 11-10-2023 Magnesium [Mass/Vol] 2.0 mg/dL Normal 1.6-2.4 [facility] ([place]) Comment on above: Performed By: #### T JUAN BENITEZ LIP, BHB #### [address] [address] Magnesium [Mass/Vol] 1.8 mg/dL Normal 1.6-2.4 [facility] ([place]) Comment on above: Order Comment: WH ILE ON INSULIN INFUSION Performed By: #### T JUAN BENITEZ LIP, BHB #### [address] [address] PHOSon 11-10-2023 Phosphate [Mass/Vol] 2.2 mg/dL Low 2.4-5.1 [facility] ([place]) Comment on above: Order Comment: WH ILE ON INSULIN INFUSION Result Comment: No te - New Reference Range in effect 19 Performed By: #### JUAN HOFF LIP, BHB #### [place] [address] PHVon 11-10-2023 pH Venous 7.410 Normal 7.380-7.46 0 [facility] ([place]) Comment on above: Performed By: #### JUAN HOFF LIP, BHB #### [address] 11-10-2023 High Sensitivity Troponin I 125 ng/L High 0-34 [facility] ([place]) Comment on above: Result Comment: High Sensitive Troponin I Reference Ranges: Female: 0-34 ng/L Male: 0-54 ng/L Testing performed on [employer] IM analyzer using direct chemiluminescent technology. Performed By: #### JUAN HOFF LIP, BHB #### [place] [address] High Sensitivity Troponin I 52 ng/L High 0-34 [facility] ([place]) Comment on above: Result Comment: High Sensitive Troponin I Reference Ranges: Female: 0-34 ng/L Male: 0-54 ng/L Testing performed on [employer] IM analyzer using direct chemiluminescent technology. Performed By: #### Ronit BENITEZ ####[place] [address] .Auto Diffon 11-09-2023 Basophil, Absolute 0.0 10 3/mcL Normal 0.0-0.3 [facility] ([place]) Comment on above: Performed By: #### JUAN HOFF LIP, BHB #### [place] [address] Basophils/100 WBC (Bld) 0.2 % Normal 0.0-2.5 [facility] ([place]) Comment on above: Performed By: #### JUAN HOFF LIP BHB #### [address] [address] Eosinophil, Absolute 0.0 10 3/mcL Normal 0.0-0.7 [facility] ([place]) Comment on above: Performed By: #### T ROPHS, DRUGS, LIP, BHB #### [address] [address] Eosinophils/100 WBC (Bld) 0.0 % Normal 0.0-6.0 [facility] ([place] Comment on above: Performed By: #### T ROPHS, DRUGS, LIP, BHB #### [address] [address] Lymphocyte, Absolute 0.7 10 3/mcL Low 0.9-4.3 [facility] ([place]) Comment on above: Performed By: #### T ROPTIMOTEO, DRUGS, LIP, BHB #### [address] [address] Lymphocytes/100 WBC (Bld) 5.8 % Low 20.0-40.0 [facility] ([place]) Comment on above: Performed By: #### T ROPTIMOTEO, DRUGS, LIP, BHB #### [address] [address] Monocyte, Absolute 0.4 10 3/mcL Normal 0.1-1.4 [facility] ([place]) Comment on above: Performed By: #### T ROPTIMOTEO, DRUGS, LIP, BHB #### [address] [address] Monocytes/100 WBC (Bld) 3.4 % Normal 2.0-13.0 [facility] ([place]) Comment on above: Performed By: #### T ROPHS, DRUGS, LIP, BHB #### [address] [address] Neutrophils/100 WBC (Bld) 90.6 % High 50.0-75.0 [facility] ([place]) Comment on above: Performed By: #### T ROPHS, DRUGS, LIP, BHB #### [address] [address] Basophil, Absolute 0.1 10 3/mcL Normal 0.0-0.3 [facility] ([place]) Comment on above: Performed By: #### T JUAN BENITEZ LIP, BHB #### [address] [address] Basophils/100 WBC (Bld) 0.5 % Normal 0.0-2.5 [facility] ([place] Comment on above: Performed By: #### JUAN HOFF LIP, BHB #### [address] [address] Eosinophil, Absolute 0.0 10 3/mcL Normal 0.0-0.7 [facility] ([place] Comment on above: Performed By: #### T JUAN BENITEZ LIP, BHB #### [address] [address] Eosinophils/100 WBC (Bld) 0.0 % Normal 0.0-6.0 [facility] ([place] Comment on above: Performed By: #### T JUAN BENITEZ LIP, BHB #### [address] [address] Lymphocyte, Absolute 0.5 10 3/mcL Low 0.9-4.3 [facility] ([place] Comment on above: Performed By: #### JUAN HOFF LIP, BHB #### [address] [address] Lymphocytes/100 WBC (Bld) 4.0 % Low 20.0-40.0 [facility] ([place] Comment on above: Performed By: #### T JUAN BENITEZ LIP, BHB #### [address] [address] Monocyte, Absolute 0.3 10 3/mcL Normal 0.1-1.4 [facility] ([place]) Comment on above: Performed By: #### T JUAN BENITEZ LIPCAMPOSB #### [address] [address] Monocytes/100 WBC (Bld) 2.3 % Normal 2.0-13.0 [facility] ([place] Comment on above: Performed By: #### T JUAN BENITEZ LIP, BHB #### [address] [address] Neutrophils/100 WBC (Bld) 93.2 % High 50.0-75.0 [facility] ([place] Comment on above: Performed By: #### T JUAN BENITEZ LIP, BHB #### [address] [address] .GFRon 11-09-2023 GFR Non- >60 Normal [facility] ([place]) Comment on above: Result Comment: GFR Population mean for , Non- Americans Ages 20-29 = 116 mL/min/1.73 sq.m. Ages 30-39 = 107 mL/min/1.73 sq.m. Ages 40-49 = 99 mL/min/1.73 sq.m. Ages 50-59 = 93 mL/min/1.73 sq.m. Ages 60-69 = 85 mL/min/1.73 sq.m. Ages 70+ = 75 mL/min/1.73 sq.m. Chronic Kidney Disease: Less than 60 mL/min/1.73 square meters End Stage Renal Disease: Less than 15 mL/min/1.73 square meters Performed By: #### T JUAN BENITEZ LIP BHB #### [address] [address] GFR >60 Normal [facility] ([place] Comment on above: Result Comment: GFR Population mean for , Non- Americans Ages 20-29 = 116 mL/min/1.73 sq.m. Ages 30-39 = 107 mL/min/1.73 sq.m. Ages 40-49 = 99 mL/min/1.73 sq.m. Ages 50-59 = 93 mL/min/1.73 sq.m. Ages 60-69 = 85 mL/min/1.73 sq.m. Ages 70+ = 75 mL/min/1.73 sq.m. Chronic Kidney Disease: Less than 60 mL/min/1.73 square meters End Stage Renal Disease: Less than 15 mL/min/1.73 square meters Performed By: #### T ELI DRUGS LIP, BHB #### [address] [address] GFR >60 Normal [facility] ([place] Comment on above: Result Comment: GFR Population mean for , Non- Americans Ages 20-29 = 116 mL/min/1.73 sq.m. Ages 30-39 = 107 mL/min/1.73 sq.m. Ages 40-49 = 99 mL/min/1.73 sq.m. Ages 50-59 = 93 mL/min/1.73 sq.m. Ages 60-69 = 85 mL/min/1.73 sq.m. Ages 70+ = 75 mL/min/1.73 sq.m. Chronic Kidney Disease: Less than 60 mL/min/1.73 square meters End Stage Renal Disease: Less than 15 mL/min/1.73 square meters Performed By: #### T ELI, DRUGS, LIP, BHB #### [address] [address] GFR Non- >60 Normal [facility] ([place] Comment on above: Result Comment: GFR Population mean for , Non- Americans Ages 20-29 = 116 mL/min/1.73 sq.m. Ages 30-39 = 107 mL/min/1.73 sq.m. Ages 40-49 = 99 mL/min/1.73 sq.m. Ages 50-59 = 93 mL/min/1.73 sq.m. Ages 60-69 = 85 mL/min/1.73 sq.m. Ages 70+ = 75 mL/min/1.73 sq.m. Chronic Kidney Disease: Less than 60 mL/min/1.73 square meters End Stage Renal Disease: Less than 15 mL/min/1.73 square meters Performed By: #### T ELI, DRUGS, LIP, BHB #### [address] [address] .MDWon 11-09-2023 Monocyte Distribution Width 16.98 Normal 0.00-20.00 [facility] ([place] Comment on above: Result Comment: For ED adult patients suspected of sepsis, MDW<=20.0 does not rule out sepsis or risk of sepsis Performed By: #### T ELI, DRUGS, LIP, BHB #### [place] [address] .NEUABSon 11-09-2023 Neutrophil, Absolute 11.4 10 3/mcL High 2.3-8.1 [facility] ([place] Comment on above: Performed By: #### T ELI DRUGS, LIP, BHB #### [place] [address] Neutrophil, Absolute 11.9 10 3/mcL High 2.3-8.1 [facility] ([place] Comment on above: Performed By: #### T ELI DRUGS, LIP, BHB #### [place] [address] BHBon 11-09-2023 B-Hydroxybutyrate 52.72 mg/dL High 0.20-2.81 [facility] ([place]) Comment on above: Performed By: #### T JUAN BENITEZ LIP, BHB #### [place] [address] CBCon 11-09-2023 Erythrocyte distribution width (RBC) [Ratio] 13.3 % Normal 11.5-15.5 [facility] ([place] Comment on above: Performed By: #### T JUAN BENITEZ LIP, BHB #### [place] [address] Hematocrit (Bld) [Volume fraction] 36.8 % Normal 34.0-46.0 [facility] ([place] Comment on above: Performed By: #### T ELI DRUGS, LIP, BHB #### [place] [address] Hgb 11.9 G/dL Low 12.0-16.0 [facility] ([place] Comment on above: Performed By: #### T ELI DRUGS, LIP, BHB #### [place] [address] MCH (RBC) [Entitic mass] 27.7 pg Normal 27.0-33.0 [facility] ([place] Comment on above: Performed By: #### T ELI DRUGS LIP, BHB #### [address] [address] MCHC 32.3 G/dL Normal 32.0-36.0 [facility] ([place] Comment on above: Performed By: #### T JUAN BENITEZ LIP, BHB #### [address] [address] MCV (RBC) [Entitic vol] 85.8 fL Normal 80.0-99.0 [facility] ([place] Comment on above: Performed By: #### T JUAN BENITEZ LIP, BHB #### [place] [id number] Platelet 403 10 3/mcL Normal 150-450 [facility] ([place] Comment on above: Performed By: #### T JUAN BENITEZ LIP, BHB #### [place] [address] Platelet mean volume (Bld) [Entitic vol] 9.0 fL Normal 6.6-10.5 [facility] ([place] Comment on above: Performed By: #### T JUAN BENITEZ LIP, BHB #### [place] [id number] RBC 4.29 10 6/mcL Normal 4.10-5.30 [facility] ([place] Comment on above: Performed By: #### T JUAN BENITEZ LIP, BHB #### [address] [address] WBC 12.6 10 3/mcL High 4.5-10.8 [facility] ([place] Comment on above: Performed By: #### T JUAN BENITEZ LIP, BHB #### [address] [address] Erythrocyte distribution width (RBC) [Ratio] 13.5 % Normal 11.5-15.5 [facility] ([place] Comment on above: Performed By: #### T JUAN BENITEZ LIP, BHB #### [place] [address] Hematocrit (Bld) [Volume fraction] 31.8 % Low 34.0-46.0 [facility] ([place] Comment on above: Performed By: #### T ELI DRUGS, LIP, BHB #### [place] [address] Hgb 10.4 G/dL Low 12.0-16.0 [facility] ([place] Comment on above: Performed By: #### T ELI DRUGS LIP, BHB #### [place] [address] MCH (RBC) [Entitic mass] 28.1 pg Normal 27.0-33.0 [facility] ([place] Comment on above: Performed By: #### T ELI DRUGS LIP, BHB #### [place] [address] MCHC 32.7 G/dL Normal 32.0-36.0 [facility] ([place] Comment on above: Performed By: #### T ELI DRUGS LIP, BHB #### [place] [address] MCV (RBC) [Entitic vol] 86.0 fL Normal 80.0-99.0 [facility] ([place] Comment on above: Performed By: #### T ELI DRUGS, LIP, BHB #### [place] [address] Platelet 368 10 3/mcL Normal 150-450 [facility] ([place] Comment on above: Performed By: #### T ELI DRUGS, LIP, BHB #### [place] [address] Platelet mean volume (Bld) [Entitic vol] 9.4 fL Normal 6.6-10.5 [facility] ([place] Comment on above: Performed By: #### T ELI DRUGS, LIP, BHB #### [place] [address] RBC 3.69 10 6/mcL Low 4.10-5.30 [facility] ([place] Comment on above: Performed By: #### T ELI, DRUGS, LIP, BHB #### [place] [id number] WBC 12.7 10 3/mcL High 4.5-10.8 [facility] ([place]) Comment on above: Performed By: #### T JUAN BENITEZ, LIP, BHB #### [address] [address] [facility] 11-09-2023 Relative Index 1.8 % Normal 0.0-4.5 [facility] ([place]) Comment on above: Performed By: #### T ELI, CKMBM, CKMB ####[address] [address] CK [Catalytic activity/Vol] 281 U/L High 7-185 [facility] ([place]) Comment on above: Performed By: #### T ELI, CKMBM, CKMB ####[address] [address] CKMBMon 11-09-2023 CK.MB [Mass/Vol] 5.19 ng/mL High 0.00-5.00 [facility] ([place]) Comment on above: Result Comment: No te - New Reference Range in effect 19 Performed By: #### T ELI, CKMBM, CKMB ####[address] [address] CMPon 11-09-2023 Albumin Level 3.9 G/dL Normal 3.2-4.8 [facility] ([place]) Comment on above: Performed By: #### T ELI DRUGS, LIP, BHB #### [place] [id number] Albumin/Globulin [Mass ratio] 0.8 {ratio} Low 0.9-1.6 [facility] ([place]) Comment on above: Performed By: #### T ELI DRUGS, LIP, BHB #### [place] [phone] ALP [Catalytic activity/Vol] 93 U/L Normal 38-126 [facility] ([place]) Comment on above: Performed By: #### T ELI DRUGS, LIP, BHB #### [address] [address] ALT [Catalytic activity/Vol] 35 U/L Normal 10-49 [facility] ([place]) Comment on above: Performed By: #### T JUAN BENITEZ LIP, BHB #### [address] [address] AST [Catalytic activity/Vol] 36 U/L High 8-34 [facility] ([place]) Comment on above: Performed By: #### T JUAN BENITEZ LIPGOLDEN #### [address] [address] Bili Total 0.50 mg/dL Normal 0.20-1.20 [facility] ([place]) Comment on above: Result Comment: Use of this assay is not recommended for patients undergoing treatment with eltrombopag due to the potential for falsely elevated results. Performed By: #### T JUAN BENITEZ LIP, BHB #### [address] [address] BUN/Creatinine Ratio 19.7 ratio Normal 10.0-22.0 [facility] ([place] Comment on above: Performed By: #### T JUAN BENITEZ LIP, BHB #### [address] [address] Calcium [Mass/Vol] 9.9 mg/dL Normal 8.7-10.4 [facility] ([place]) Comment on above: Performed By: #### T JUAN BENITEZ LIP, CAMPOSB #### [address] [address] Chloride [Moles/Vol] 106 mmol/L Normal 98-110 [facility] ([place] Comment on above: Performed By: #### T JUAN BENITEZ LIP, BHB #### [address] [address] CO2 [Moles/Vol] 20 mmol/L Low 22-32 [facility] ([place] Comment on above: Performed By: #### T JUAN BENITEZ LIP, BHB #### [address] [address] Creatinine [Mass/Vol] 0.76 mg/dL Normal 0.50-1.20 [facility] ([place] Comment on above: Performed By: #### T JUAN BENITEZ LIP, BHB #### [address] [address] Electrolyte Balance 13.0 mEq/L Normal 4.0-15.0 [facility] ([place]) Comment on above: Performed By: #### T JUAN BENITEZ LIP, BHB #### [address] [address] Globulin 4.6 G/dL High 1.5-3.8 [facility] ([place] Comment on above: Performed By: #### T JUAN BENITEZ LIP, BHB #### [address] [address] Glucose [Mass/Vol] 292 mg/dL High 70-110 [facility] ([place] Comment on above: Performed By: #### T JUAN BENITEZ LIP, BHB #### [address] [address] Potassium [Moles/Vol] 4.0 mmol/L Normal 3.5-5.0 [facility] ([place] Comment on above: Performed By: #### T JUAN BENITEZ LIP, BHB #### [address] [address] Sodium [Moles/Vol] 139 mmol/L Normal 136-145 [facility] ([place] Comment on above: Performed By: #### T JUAN BENITEZ LIP, BHB #### [address] [address] Total Protein 8.5 G/dL High 5.7-8.2 [facility] ([place] Comment on above: Result Comment: No te - New Reference Range in effect 19 Performed By: #### T JUAN BENITEZ LIP, BHB #### [address] [address] Urea nitrogen [Mass/Vol] 15.0 mg/dL Normal 8.0-22.0 [facility] ([place] Comment on above: Performed By: #### T ROPTIMOTEO, DRUGS, LIP, BHB #### [place] [phone] Albumin Level 3.8 G/dL Normal 3.2-4.8 [facility] ([place] Comment on above: Performed By: #### T ROPTIMOTEO, DRUGS, LIP, BHB #### [place] [phone] Albumin/Globulin [Mass ratio] 0.9 {ratio} Normal 0.9-1.6 [facility] ([place] Comment on above: Performed By: #### T ELI, DRUGS, LIP, BHB #### [place] [phone] ALP [Catalytic activity/Vol] 85 U/L Normal 38-126 [facility] ([place] Comment on above: Performed By: #### T ELI DRUGS, LIP, BHB #### [place] [phone] ALT [Catalytic activity/Vol] 31 U/L Normal 10-49 [facility] ([place] Comment on above: Performed By: #### T ELI, DRUGS, LIP, BHB #### [place] [phone] AST [Catalytic activity/Vol] 34 U/L Normal 8-34 [facility] ([place] Comment on above: Performed By: #### T ELI, DRUGS, LIP, BHB #### [place] [phone] Bili Total 0.60 mg/dL Normal 0.20-1.20 [facility] ([place] Comment on above: Result Comment: Use of this assay is not recommended for patients undergoing treatment with eltrombopag due to the potential for falsely elevated results. Performed By: #### T ELI, DRUGS, LIP, BHB #### [place] [phone] BUN/Creatinine Ratio 15.9 ratio Normal 10.0-22.0 [facility] ([place] Comment on above: Performed By: #### T ROPTIMOTEO, DRUGS, LIP, BHB #### [address] [address] Calcium [Mass/Vol] 9.6 mg/dL Normal 8.7-10.4 [facility] ([place] Comment on above: Performed By: #### T JUAN BENITEZ LIP, BHB #### [address] [address] Chloride [Moles/Vol] 102 mmol/L Normal 98-110 [facility] ([place] Comment on above: Performed By: #### T JUAN BENITEZ LIP, BHB #### [address] [address] CO2 [Moles/Vol] 19 mmol/L Low 22-32 [facility] ([place] Comment on above: Performed By: #### T JUAN BENITEZ LIP, CAMPOSB #### [address] [address] Creatinine [Mass/Vol] 0.82 mg/dL Normal 0.50-1.20 [facility] ([place] Comment on above: Performed By: #### T JUAN BENITEZ LIP, CAMPOSB #### [address] [address] Electrolyte Balance 17.0 mEq/L High 4.0-15.0 [facility] ([place] Comment on above: Performed By: #### T JUAN BENITEZ LIP, BHB #### [address] [address] Globulin 4.1 G/dL High 1.5-3.8 [facility] ([place] Comment on above: Performed By: #### T JUAN BENITEZ LIP, BHB #### [address] [address] Glucose [Mass/Vol] 455 mg/dL Critically abnormal 70-110 [facility] ([place] Comment on above: Performed By: #### T JUAN BENITEZ LIP, BHB #### [address] [address] Potassium [Moles/Vol] 4.4 mmol/L Normal 3.5-5.0 [facility] ([place] Comment on above: Performed By: #### T JUAN BENITEZ LIP, BHB #### [place] [phone] Sodium [Moles/Vol] 138 mmol/L Normal 136-145 [facility] ([place] Comment on above: Performed By: #### T JUAN BENITEZ LIP, BHB #### [place] [address] Total Protein 7.9 G/dL Normal 5.7-8.2 [facility] ([place] Comment on above: Result Comment: No te - New Reference Range in effect 19 Performed By: #### T JUAN BENITEZ LIP, BHB #### [place] [address] Urea nitrogen [Mass/Vol] 13.0 mg/dL Normal 8.0-22.0 [facility] ([place] Comment on above: Performed By: #### T JUAN BENITEZ LIP, BHB #### [place] [address] DRUGSon 11-09-2023 Acetaminophen [Mass/Vol] ug/mL Low 10.0-20.0 [facility] ([place] Comment on above: Performed By: #### T JUAN BENITEZ LIP, BHB #### [place] [address] Ethanol Level <10.0 Normal [facility] ([place] Comment on above: Performed By: #### T JUAN BENITEZ LIP, BHB #### [place] [address] Salicylate Lvl (ds) 5.0 mg/dL Low 10.0-25.0 [facility] ([place] Comment on above: Performed By: #### T JUAN BENITEZ LIP, BHB #### [place] [address] Serum Drugs screened: See Below Normal [facility] ([place] Comment on above: Result Comment: This drug screen is a presumptive screening only. No confirmation will be performed unless requested. Drugs included in the ER serum drug screen are: Threshold Ethanol 10.0 mg/dL Salicylate 2.0 mg/dl Acetaminophen 2.0 mcg/mL Testing has been performed FOR MEDICAL PURPOSES ONLY. Performed By: #### T ELI DRUGS, LIP, BHB #### [place] [address] DRUGUon 11-09-2023 Amphetamine (u) Negative Normal Negative [facility] ([place]) Comment on above: Performed By: #### T ELI DRUGS, LIP, BHB #### [place] [address] Barbiturate (u) Negative Normal Negative [facility] ([place]) Comment on above: Performed By: #### T ELI DRUGS, LIP, BHB #### [place] [address] Benzodiazepine (u) Negative Normal Negative [facility] ([place]) Comment on above: Performed By: #### T ELI DRUGS, LIP, BHB #### [place] [address] Cannabinoid (u) Negative Normal Negative [facility] ([place]) Comment on above: Performed By: #### T ELI DRUGS, LIP, BHB #### [place] [address] Cocaine Ql (U) Negative Normal Negative [facility] ([place] Comment on above: Performed By: #### T ELI DRUGS, LIP, BHB #### [place] [address] Fentanyl (u) Negative Normal Negative [facility] ([place]) Comment on above: Result Comment: Test ing has been performed FOR MEDICAL PURPOSES ONLY. Performed By: #### T ELI DRUGS, LIP, BHB #### [place] [address] Methadone Ql (U) Negative Normal Negative [facility] ([place]) Comment on above: Performed By: #### T ELI DRUGS, LIP, BHB #### [place] [address] Opiate (u) Negative Normal Negative [facility] ([place] Comment on above: Performed By: #### T ELI DRUGS, LIP, BHB #### [address] [address] Oxycodone (u) Negative Normal Negative [facility] ([place]) Comment on above: Result Comment: Test ing has been performed FOR MEDICAL PURPOSES ONLY. Performed By: #### T ELI DRUGS, LIP, BHB #### [address] [address] PCP (u) Negative Normal Negative [facility] ([place]) Comment on above: Performed By: #### T JUAN BENITEZ LIP, BHB #### [address] [address] Propoxyphene (u) Negative Normal Negative [facility] ([place]) Comment on above: Performed By: #### T JUAN BENITEZ LIP, BHB #### [address] [address] U pH Drug Scrn 5.5 Normal 5.0-8.0 [facility] ([place] Comment on above: Performed By: #### T JUAN BENITEZ LIP, BHB #### [address] [address] Urine Drugs screened: See Below Normal [facility] ([place] Comment on above: Result Comment: This drug screen is a presumptive screening only. No confirmation will be performed unless requested. Drugs screened include: Threshold Amphetamines/Methamphetamines 1,000 ng/mL Barbiturates 200 ng/mL Benzodiazepine metabolites 200 ng/mL Cannabinoids (THC metabolites) 50 ng/mL Benzoylecognine (Cocaine metab) 300 ng/mL Opiates 300 ng/mL Phencyclidine (PCP) 25 ng/mL Methadone 300 ng/mL Propoxyphene 300 ng/mL Fentanyl 1.0 ng/mL Oxycodone 100 ng/mL Testing has been performed FOR MEDICAL PURPOSES ONLY. Performed By: #### T ELI DRUGS, LIP, BHB #### [address] [address] LABORATORYOrdered By: SYSTEM SYSTEM on 11-09-2023 Albumin BCP dye [Mass/Vol] 3.9 G/dL Normal 3.2 - 4.8 G/dL ADM SS Albumin/Globulin [Mass ratio] 0.8 {ratio} Low 0.9 - 1.6 ratio ADM SS ALP [Catalytic activity/Vol] 93 U/L Normal 38 - 126 U/L ADM SS ALT No additional P-5'-P [Catalytic activity/Vol] 35 U/L Normal 10 - 49 U/L ADM SS AST [Catalytic activity/Vol] 36 U/L High 8 - 34 U/L ADM SS Basophils (Bld) [#/Vol] 0.0 103/mcL Normal 0.0 - 0.3 10^3/mcL Workflow SS Basophils/100 WBC (Bld) 0.2 % Normal 0.0 - 2.5 % Workflow SS Bilirubin [Mass/Vol] 0.50 mg/dL Normal 0.20 - 1.20 mg/dL ADM SS Comment on above: Interpretive Data: U se of this assay is not recommended for patients undergoing treatment with eltrombopag due to the potential for falsely elevated results. Calcium [Mass/Vol] 9.9 mg/dL Normal 8.7 - 10. 4 mg/dL ADM SS Chloride [Moles/Vol] 106 mmol/L Normal 98 - 110 mEq/L ADM SS CK [Catalytic activity/Vol] 281 U/L High 7 - 185 U/L ADM SS CO2 [Moles/Vol] 20 mmol/L Low 22 - 32 mEq/L ADM SS Creatinine [Mass/Vol] 0.76 mg/dL Normal 0.50 - 1.20 mg/dL ADM SS Electrolyte Balance 13.0 mEq/L Normal 4.0 - 15 .0 mEq/L ADM SS Eosinophils (Bld) [#/Vol] 0.0 103/mcL Normal 0.0 - 0.7 10^3/mcL Workflow SS Eosinophils/100 WBC (Bld) 0.0 % Normal 0.0 - 6.0 % Workflow SS Erythrocyte distribution width (RBC) [Ratio] 13.3 % Normal 11.5 - 15.5 % Workflow SS GFR/1.73 sq M.predicted among blacks MDRD (S/P/Bld) [Vol rate/Area] ml/min/1.73sqm Invalid Interpretation Code ADM SS Comment on above: Interpretive Data: GFR Population mean for , Non- Americans Ages 20-29 = 116 mL/min/1.73 sq.m. Ages 30-39 = 107 mL/min/1.73 sq.m. Ages 40-49 = 99 mL/min/1.73 sq.m. Ages 50-59 = 93 mL/min/1.73 sq.m. Ages 60-69 = 85 mL/min/1.73 sq.m. Ages 70+ = 75 mL/min/1.73 sq.m. Chronic Kidney Disease: Less than 60 mL/min/1.73 square meters End Stage Renal Disease: Less than 15 mL/min/1.73 square meters GFR/1.73 sq M.predicted among non-blacks MDRD (S/P/Bld) [Vol rate/Area] ml/min/1.73sqm Invalid Interpretation Code ADM SS Comment on above: Interpretive Data: GFR Population mean for , Non- Americans Ages 20-29 = 116 mL/min/1.73 sq.m. Ages 30-39 = 107 mL/min/1.73 sq.m. Ages 40-49 = 99 mL/min/1.73 sq.m. Ages 50-59 = 93 mL/min/1.73 sq.m. Ages 60-69 = 85 mL/min/1.73 sq.m. Ages 70+ = 75 mL/min/1.73 sq.m. Chronic Kidney Disease: Less than 60 mL/min/1.73 square meters End Stage Renal Disease: Less than 15 mL/min/1.73 square meters Globulin 4.6 G/dL High 1.5 - 3.8 G/dL ADM SS Glucose [Mass/Vol] 292 mg/dL High 70 - 110 mg/dL ADM SS Hematocrit (Bld) [Volume fraction] 36.8 % Normal 34.0 - 46.0 % Workflow SS Hemoglobin (Bld) [Mass/Vol] 11.9 G/dL Low 12.0 - 16.0 G/dL Workflow SS Lymphocytes (Bld) [#/Vol] 0.7 103/mcL Low 0.9 - 4.3 10^3/mcL Workflow SS Lymphocytes/100 WBC (Bld) 5.8 % Low 20.0 - 40.0 % Workflow SS Magnesium [Mass/Vol] 1.8 mg/dL Normal 1.6 - 2.4 mg/dL ADM SS MCH (RBC) [Entitic mass] 27.7 pg Normal 27.0 - 33.0 pg AH Workflow SS MCHC 32.3 G/dL Normal 32.0 - 36.0 G/dL AH Workflow SS MCV (RBC) [Entitic vol] 85.8 fL Normal 80.0 - 99.0 fL AH Workflow SS Monocytes (Bld) [#/Vol] 0.4 103/mcL Normal 0.1 - 1.4 10^3/mcL AH Workflow SS Monocytes/100 WBC (Bld) 3.4 % Normal 2.0 - 13.0 % AH Workflow SS Neutrophils (Bld) [#/Vol] 11.4 103/mcL High 2.3 - 8.1 10^3/mcL AH Workflow SS Neutrophils/100 WBC (Bld) 90.6 % High 50.0 - 75.0 % Workflow SS Phosphate [Mass/Vol] 2.5 mg/dL Normal 2.4 - 5.1 mg/dL ADM SS Comment on above: Interpretive Data: * *Note - New Reference Range in effect 19 Platelet mean volume (Bld) [Entitic vol] 9.0 fL Normal 6.6 - 10.5 fL Workflow SS Platelets (Bld) [#/Vol] 403 103/mcL Normal 150 - 450 10^3/mcL Workflow SS Potassium [Moles/Vol] 4.0 mmol/L Normal 3.5 - 5.0 mEq/L ADM SS Protein [Mass/Vol] 8.5 G/dL High 5.7 - 8.2 G/dL ADM SS Comment on above: Interpretive Data: * *Note - New Reference Range in effect 19 RBC (Bld) [#/Vol] 4.29 106/mcL Normal 4.10 - 5.30 10^6/mcL Workflow SS Sodium [Moles/Vol] 139 mmol/L Normal 136 - 145 mEq/L ADM SS Troponin I.cardiac DL <= 0.01 ng/mL [Mass/Vol] 24 ng/L Normal 0 - 34 ng/L ADM SS Comment on above: Interpretive Data: High Sensitive Troponin I Reference Ranges: Female: 0-34 ng/L Male: 0-54 ng/L Testing performed on [employer] IM analyzer using direct chemiluminescent technology. Urea nitrogen [Mass/Vol] 15.0 mg/dL Normal 8.0 - 22.0 mg/dL ADM SS Urea nitrogen/Creatinine [Mass ratio] 19.7 ratio Normal 10.0 - 22.0 ratio ADM SS WBC (Bld) [#/Vol] 12.6 103/mcL High 4.5 - 10.8 10^3/mcL Workflow SS Albumin BCP dye [Mass/Vol] 3.8 G/dL Normal 3.2 - 4.8 G/dL ADM SS Albumin/Globulin [Mass ratio] 0.9 {ratio} Normal 0.9 - 1.6 ratio ADM SS ALP [Catalytic activity/Vol] 85 U/L Normal 38 - 126 U/L ADM SS ALT No additional P-5'-P [Catalytic activity/Vol] 31 U/L Normal 10 - 49 U/L ADM SS AST [Catalytic activity/Vol] 34 U/L Normal 8 - 34 U/L [facility] SS Beta hydroxybutyrate [Mass/Vol] 52.72 mg/dL High 0.20 - 2.81 mg/dL ADM SS Bilirubin [Mass/Vol] 0.60 mg/dL Normal 0.20 - 1.20 mg/dL [facility] Comment on above: Interpretive Data: U se of this assay is not recommended for patients undergoing treatment with eltrombopag due to the potential for falsely elevated results. Globulin 4.1 G/dL High 1.5 - 3.8 G/dL ADM SS Lipase [Catalytic activity/Vol] 34 U/L Normal 12 - 53 U/L [facility] Comment on above: Interpretive Data: * *Note - New Reference Range in effect 19 Monocyte distribution width Auto (Bld) [Entitic vol] 16.98 1 Normal 0.00 - 20.00 Workflow SS Comment on above: Result Comment: For ED adult patients suspected of sepsis, MDW<=20.0 does not rule out sepsis or risk of sepsis Protein [Mass/Vol] 7.9 G/dL Normal 5.7 - 8.2 G/dL [facility] Comment on above: Interpretive Data: * *Note - New Reference Range in effect 19 LABORATORYOrdered By: Lucia Beltran on 11-09-2023 CK.MB [Mass/Vol] 5.19 ng/mL High 0.00 - 5.00 ng/mL AH ADM SS Comment on above: Interpretive Data: * *Note - New Reference Range in effect 19 Free T4 index Calc [Mass/Vol] 1.8 % Normal 0.0 - 4.5 % Chemistry S pH (Bld) 7.310 [pH] Low 7.380 - 7.460 Main Rapid Comm SS LABORATORYOrdered By: Edgar Ruiz on 11-09-2023 Amphetamines Screen Ql (U) Negative *NA* (11/09/23 5:08 PM) Invalid Interpretation Code Negative AH ADM SS Barbiturates Screen Ql (U) Negative *NA* (11/09/23 5:08 PM) Invalid Interpretation Code Negative AH ADM SS Benzodiazepines Ql (U) Negative *NA* (11/09/23 5:08 PM) Invalid Interpretation Code Negative AH ADM SS Benzoylecgonine Screen Ql (U) Negative *NA* (11/09/23 5:08 PM) Invalid Interpretation Code Negative AH ADM SS Cannabinoids Screen Ql (U) Negative *NA* (11/09/23 5:08 PM) Invalid Interpretation Code Negative AH ADM SS fentaNYL Screen Ql (U) Negative 2 *NA* (11/09/23 5:08 PM) Invalid Interpretation Code Negative AH ADM SS Comment on above: Interpretive Data: T esting has been performed FOR MEDICAL PURPOSES ONLY. Methadone Screen Ql (U) Negative *NA* (11/09/23 5:08 PM) Invalid Interpretation Code Negative AH ADM SS Opiates Screen Ql (U) Negative *NA* (11/09/23 5:08 PM) Invalid Interpretation Code Negative AH ADM SS oxyCODONE Ql (U) Negative 3 *NA* (11/09/23 5:08 PM) Invalid Interpretation Code Negative AH ADM SS Comment on above: Interpretive Data: T esting has been performed FOR MEDICAL PURPOSES ONLY. pH (U) 5.5 [pH] Normal 5.0 - 8.0 Chemistry S Phencyclidine Ql (U) Negative *NA* (11/09/23 5:08 PM) Invalid Interpretation Code Negative AH ADM SS Propoxyphene Screen Ql (U) Negative *NA* (11/09/23 5:08 PM) Invalid Interpretation Code Negative AH ADM SS Urine Drugs screened: See Below 16 (11/09/23 5:08 PM) Normal Chemistry S Comment on above: Interpretive Data: T his drug screen is a presumptive screening only. No confirmation will be performed unless requested. Drugs screened include: Threshold Amphetamines/Methamphetamines 1,000 ng/mL Barbiturates 200 ng/mL Benzodiazepine metabolites 200 ng/mL Cannabinoids (THC metabolites) 50 ng/mL Benzoylecognine (Cocaine metab) 300 ng/mL Opiates 300 ng/mL Phencyclidine (PCP) 25 ng/mL Methadone 300 ng/mL Propoxyphene 300 ng/mL Fentanyl 1.0 ng/mL Oxycodone 100 ng/mL Testing has been performed FOR MEDICAL PURPOSES ONLY. Acetaminophen [Mass/Vol] mcg/mL Low 10.0 - 20.0 mcg/mL AH ADM SS Ethanol [Mass/Vol] mg/dL Invalid Interpretation Code AH ADM SS pH (Bld) 7.319 [pH] Low 7.380 - 7.460 AH Main Rapid Comm SS Salicylates [Mass/Vol] 5.0 mg/dL Low 10.0 - 25.0 mg/dL AH ADM SS Serum Drugs screened: See Below 15 (11/09/23 4:53 PM) Normal Chemistry S Comment on above: Interpretive Data: T his drug screen is a presumptive screening only. No confirmation will be performed unless requested. Drugs included in the ER serum drug screen are: Threshold Ethanol 10.0 mg/dL Salicylate 2.0 mg/dl Acetaminophen 2.0 mcg/mL Testing has been performed FOR MEDICAL PURPOSES ONLY. LABORATORYOrdered By: Charlee Salinas on 11-09-2023 Appearance (U) Clear (11/09/23 5:08 PM) Normal Clear AH Auto Urine SS Bacteria LM.HPF (Urine sed) [#/Area] 4 /[HPF] Invalid Interpretation Code Negative AH Auto Urine SS Bilirubin Ql (U) Negative (11/09/23 5:08 PM) Normal Neg-Trace AH Auto Urine SS Color (U) Yellow (11/09/23 5:08 PM) Normal AH Auto Urine SS Glucose Test strip (U) [Mass/Vol] >=1000 mg/dL Invalid Interpretation Code Negative AH Auto Urine SS Hemoglobin Auto test strip (U) [Mass/Vol] Negative (11/09/23 5:08 PM) Normal Neg-Trace AH Auto Urine SS Ketones Ql (U) >=160 mg/dL Invalid Interpretation Code Neg-Trace AH Auto Urine SS UA Hyal Cast 0-2 /LPF Invalid Interpretation Code AH Auto Urine SS UA Leuk Est Negative (11/09/23 5:08 PM) Normal Negative AH Auto Urine SS UA Nitrite Negative (11/09/23 5:08 PM) Normal Negative AH Auto Urine SS UA pH 5.5 (11/09/23 5:08 PM) Normal 5.0 - 8.0 AH Auto Urine SS UA Protein 100 mg/dL Invalid Interpretation Code Negative AH Auto Urine SS UA RBC 0-2 /HPF Normal 0-2 AH Auto Urine SS UA Spec Grav >=1.030 *ABN* (11/09/23 5:08 PM) Invalid Interpretation Code 1.006-1.02 9 Auto Urine SS UA Specimen Type Clean Catch (11/09/23 5:08 PM) Normal Auto Urine SS UA Squam Epithelial 3-5 /HPF Normal 0-20 Au to Urine SS UA Urobilinogen 0.2 E.U./dL Normal 0.2-1.0 AH Auto Urine SS WBC LM.HPF (Urine sed) [#/Area] 5-10 /HPF Invalid Interpretation Code 0-5 Auto Urine SS LIPon 11-09-2023 Lipase Level 34 U/L Normal 12-53 [facility] ([place]) Comment on above: Result Comment: No te - New Reference Range in effect 19 Performed By: #### T JUAN BENITEZ LIP, BHB #### [address] [address] MGon 11-09-2023 Magnesium [Mass/Vol] 1.8 mg/dL Normal 1.6-2.4 [facility] ([place]) Comment on above: Performed By: #### T JUAN BENITEZ LIP, BHB #### [address] [address] PHOSon 11-09-2023 Phosphate [Mass/Vol] 2.5 mg/dL Normal 2.4-5.1 [facility] ([place] Comment on above: Result Comment: No te - New Reference Range in effect 19 Performed By: #### T ELI DRUGS, LIP, BHB #### [place] [address] PHVon 11-09-2023 pH Venous 7.310 Low 7.380-7.46 0 [facility] ([place] Comment on above: Performed By: #### T JUAN BENITEZ LIP, BHB #### [place] [address] pH Venous 7.319 Low 7.380-7.46 0 [facility] ([place] Comment on above: Performed By: #### T JUAN BENITEZ LIP, BHB #### [place] [address] TROPHSon 11-09-2023 High Sensitivity Troponin I 24 ng/L Normal 0-34 [facility] ([place] Comment on above: Result Comment: High Sensitive Troponin I Reference Ranges: Female: 0-34 ng/L Male: 0-54 ng/L Testing performed on [employer] IM analyzer using direct chemiluminescent technology. Performed By: #### T ELI, CKMBM, CKMB ####[place] [address] High Sensitivity Troponin I 15 ng/L Normal 0-34 [facility] ([place] Comment on above: Result Comment: High Sensitive Troponin I Reference Ranges: Female: 0-34 ng/L Male: 0-54 ng/L Testing performed on [employer] IM analyzer using direct chemiluminescent technology. Performed By: #### T JUAN BENITEZ LIP, BHB #### [place] [address] UAon 11-09-2023 Color (U) Yellow Normal [facility] ([place]) Comment on above: Performed By: #### T JUAN BENITEZ LIP, BHB #### [place] [address] Glucose (U) [Mass/Vol] mg/dL Abnormal Negative [facility] ([place] Comment on above: Performed By: #### T ELI DRUGS, LIP, BHB #### [place] [address] Ketones Ql (U) >=160 Abnormal Neg-Trace [facility] ([place] Comment on above: Performed By: #### T ELI, DRUGS, LIP, BHB #### [address] [address] UA Appear Clear Normal Clear [facility] ([place] Comment on above: Performed By: #### T ROPTIMOTEO, DRUGS, LIP, BHB #### [address] [address] UA Blood Negative Normal Neg-Trace [facility] ([place] Comment on above: Performed By: #### T ROPTIMOTEO, DRUGS, LIP, BHB #### [address] [address] UA Leuk Est Negative Normal Negative [facility] ([place] Comment on above: Performed By: #### T ROPTIMOTEO, DRUGS, LIP, BHB #### [address] [address] UA Nitrite Negative Normal Negative [facility] ([place] Comment on above: Performed By: #### T ELI, DRUGS, LIP, BHB #### [place] [address] UA pH 5.5 Normal 5.0 - 8.0 [facility] ([place] Comment on above: Performed By: #### T ELI, DRUGS, LIP, BHB #### [place] [address] UA Protein 100 mg/dL Abnormal Negative [facility] ([place] Comment on above: Performed By: #### T ELI, DRUGS, LIP, BHB #### [place] [address] UA Spec Grav >=1.030 Abnormal 1.006-1.02 9 [facility] ([place] Comment on above: Performed By: #### T ELI, DRUGS, LIP, BHB #### [place] [address] UA Specimen Type Clean Catch Normal [facility] ([place] Comment on above: Performed By: #### T ELI, DRUGS, LIP, BHB #### [place] [address] UA Urobilinogen 0.2 E.U./dL Normal 0.2-1.0 [facility] ([place] Comment on above: Performed By: #### T JUAN BENITEZ LIP, BHB #### [place] [address] Urobilinogen (U) [Mass/Vol] Negative Normal Neg-Trace [facility] ([place] Comment on above: Performed By: #### JUAN HOFF LIP, BHB #### [place] [address] UAMICon 11-09-2023 UA Bacteria 4+ /hpf Abnormal Negative [facility] ([place] Comment on above: Performed By: #### JUAN HOFF LIP, BHB #### [place] [address] UA Hyal Cast 0-2 Abnormal [facility] [place] Comment on above: Performed By: #### JUAN HOFF LIP, BHB #### [place] [address] UA RBC 0-2 Normal 0-2 [facility] [place] Comment on above: Performed By: #### JUAN HOFF LIP, BHB #### [place] [address] UA Squam Epithelial 3-5 Normal 0-20 [facility] [place] Comment on above: Performed By: #### JUAN HOFF LIP, BHB #### [place] [address] UA WBC 5-10 Abnormal 0-5 [facility] [place] Comment on above: Performed By: #### JUAN HOFF LIP, BHB #### [place] [address] XR CHEST 1 VIEWon 11-09-2023 XR CHEST 1 VIEW ORIGINAL EXAMINATION: ONE XRAY VIEW OF THE CHEST 11/09/2023 5:04 pm COMPARISON: Chest x-ray 08/22/2020 HISTORY: ORDERING SYSTEM PROVIDED HISTORY: Reason for Exam: Diabetes, emergency patient FINDINGS: Cardiomediastinal contour stable. Coronary stent versus dense atherosclerosis. Low lung volumes with hypoventilatory changes. No focal consolidation or pulmonary edema. No pneumothorax or pleural effusion. No acute osseous abnormality. IMPRESSION: No acute radiographic abnormality. I have personally reviewed the images of this examination and agree with the resident's findings and interpretation. Interpreted by: Polo Estrada Preliminary Report By: Saulo Bueno Electronically signed By Polo Estrada Dictated Date: 11/09/2023 5:06:58 PM Prelim Date: 11/09/2023 5:08:13 PM Sign Date: 11/09/2023 5:10:44 PM Ordering Provider: MARIBEL VELEZ Normal [facility]) BMP (POC)on 05-07-2023 Perf Loc - POCT Tested at AM Normal [facility]) Comment on above: Result Comment: [facility] [address] [place], [place] [address] Calcium Level Ionized (POC) 1.24 mmol/L Normal 1.12-1.32 [facility] [place] Chloride [Moles/Vol] 101 mmol/L Normal 98-109 [facility] [place] CO2 [Moles/Vol] 21.0 mmol/L Low 24.0-29.0 [facility] [place] Creatinine [Mass/Vol] 0.90 mg/dL Normal 0.50-1.20 [facility] [place] Electrolyte Balance (POC) 18.0 mEq/L High 4.0-15.0 [facility] [place] Est GFR (POC) >60 Normal [facility] [place] Comment on above: Result Comment: Chronic Kidney Disease: Less than 60 mL/min/1.73 square meters End Stage Renal Disease: Less than 15 mL/min/1.73 square meters Est GFR Non- (POC) >60 Normal [facility] [place] Comment on above: Result Comment: Chronic Kidney Disease: Less than 60 mL/min/1.73 square meters End Stage Renal Disease: Less than 15 mL/min/1.73 square meters Glucose [Mass/Vol] 438 mg/dL Critically abnormal 70-110 [facility]) Performing Instrument - POCT Lab iSTAT Normal [facility] [place] Potassium [Moles/Vol] 4.7 mmol/L Normal 3.5-4.9 [facility] [place] Sodium [Moles/Vol] 135 mmol/L Low 138-146 [facility] ([place] Urea nitrogen [Mass/Vol] 19.0 mg/dL Normal 8.0-26.0 [facility]) Perf Loc - POCT Tested at AM Normal [facility]) Comment on above: Result Comment: [facility] [place] [address] [place], [place] [address] Calcium Level Ionized (POC) 1.13 mmol/L Normal 1.12-1.32 [facility] [place] Chloride [Moles/Vol] 98 mmol/L Normal 98-109 [facility] [place] CO2 [Moles/Vol] 23.0 mmol/L Low 24.0-29.0 [facility] [place] Creatinine [Mass/Vol] 0.90 mg/dL Normal 0.50-1.20 [facility] [place] Electrolyte Balance (POC) 18.0 mEq/L High 4.0-15.0 [facility] [place] Est GFR (POC) >60 Normal [facility] [place] Comment on above: Result Comment: Chronic Kidney Disease: Less than 60 mL/min/1.73 square meters End Stage Renal Disease: Less than 15 mL/min/1.73 square meters Est GFR Non- (POC) >60 Normal [facility] [place] Comment on above: Result Comment: Chronic Kidney Disease: Less than 60 mL/min/1.73 square meters End Stage Renal Disease: Less than 15 mL/min/1.73 square meters Glucose [Mass/Vol] 501 mg/dL Critically abnormal 70-110 [facility]) Performing Instrument - POCT Lab iSTAT Normal [facility] [place] Potassium [Moles/Vol] 4.5 mmol/L Normal 3.5-4.9 [facility] [place] Sodium [Moles/Vol] 134 mmol/L Low 138-146 [facility] [place] Urea nitrogen [Mass/Vol] 22.0 mg/dL Normal 8.0-26.0 [facility]) CBC (POC)on 05-07-2023 Perf Loc - POCT Tested at AM Normal [facility] [place] Comment on above: Result Comment: [facility] [address] [place], [place] [address] Basophil, Absolute (POC) 0.01 10 3/mcL Normal 0.00-0.27 [facility] [place] Basophils/100 WBC (Bld) 0.2 % Normal 0.0-2.5 [facility] [place] Eosinophil, Absolute (POC) 0.00 10 3/mcL Normal 0.00-0.65 [facility]) Eosinophils/100 WBC (Bld) 0.0 % Normal 0.0-6.0 [facility] [place] Erythrocyte distribution width (RBC) [Ratio] 11.3 % Low 11.5-15.5 [facility]) Hematocrit (Bld) [Volume fraction] 39.7 % Normal 34.0-46.0 [facility]) Hemoglobin (POC) 13.7 G/dL Normal 12.0-16.0 [facility] [place] Imm Granulocyte, Absolute (POC) 0.01 10 3/mcL Normal [facility] [place] Immature granulocytes/100 WBC (Bld) 0.2 % Normal [facility] [place] Lymphocyte, Absolute (POC) 0.52 10 3/mcL Low 0.90-4.32 [facility] [place] Lymphocytes/100 WBC (Bld) 8.4 % Low 20.0-40.0 [facility] [place] MCH (RBC) [Entitic mass] 30.4 pg Normal 27.0-33.0 [facility] [place] MCHC (POC) 34.5 G/dL Normal 32.0-36.0 [facility] [place] MCV (RBC) [Entitic vol] 88.2 fL Normal 80.0-99.0 [facility]) Monocyte, Absolute (POC) 0.10 10 3/mcL Normal 0.09-1.40 [facility]) Monocytes/100 WBC (Bld) 1.6 % Low 2.0-13.0 [facility] [place] Neutrophil, Absolute (POC) 5.52 10 3/mcL Normal 2.25-8.10 [facility] [place] Neutrophils/100 WBC (Bld) 89.6 % High 50.0-75.0 [facility] [place] Performing Instrument - POCT SYSMEX Normal [facility] [place] Platelet (POC) 266 10 3/mcL Normal 150-450 [facility] [place] Platelet mean volume (Bld) [Entitic vol] 10.7 fL High 6.6-10.5 [facility] [place] RBC (POC) 4.50 10 6/mcL Normal 4.50-6.00 [facility] [place] WBC (POC) 6.16 10 3/mcL Normal 4.50-10.80 [facility]) CHEM10 (POC)on 05-07-2023 Perf Loc - POCT Tested at AM Normal [facility]) Comment on above: Result Comment: [facility] [address] [place], [place] [address] Albumin Level (POC) 4.6 G/dL Normal 3.2-4.8 [facility] [place] ALP [Catalytic activity/Vol] 72 U/L Normal 38-126 [facility] [place] ALT [Catalytic activity/Vol] 26 U/L Normal 12-55 [facility] [place] Amylase [Catalytic activity/Vol] 139 U/L High 25-115 [facility]) Amylase [Catalytic activity/Vol] 53 U/L Normal 5-55 [facility] [place] Asparate Aminotransferase (POC) 34 U/L Normal 8-34 [facility]) Bilirubin [Mass/Vol] 0.7 mg/dL Normal 0.2-1.2 [facility] [place] Calcium [Mass/Vol] 10.5 mg/dL High 8.4-10.1 [facility]) Performing Instrument - POCT LEILA Normal [facility]) Total Protein (POC) 8.9 G/dL High 6.0-8.5 [facility] [place] Uric Acid Level (POC) 3.4 mg/dL Normal 2.3-6.6 [facility]) GLU POCon 05-07-2023 Perf Loc - POCT Tested at AM Normal [facility] [place] Comment on above: Result Comment: [facility] [address] [place], [place] [address] Glucose [Mass/Vol] 267 mg/dL High 70-110 [facility] [place] Performing Instrument - POCT MASSED2 Normal [facility] [place] Perf Loc - POCT Tested at AM Normal [facility] [place] Comment on above: Result Comment: [facility] [address] [place], [place] [address] Glucose [Mass/Vol] 337 mg/dL High 70-110 [facility] [place] Performing Instrument - POCT MASSED2 Normal [facility] [place] Perf Loc - POCT Tested at AM [facility] [place] Comment on above: Result Comment: [facility]y [facility] [address] [place], [place] [address] Glucose [Mass/Vol] 368 mg/dL High 70-110 [facility] [place] Performing Instrument - POCT MASSED2 Normal [facility] [place] Perf Loc - POCT Tested at AM Normal [facility] [place] Comment on above: Result Comment: [facility] [address] [place], [place] [address] Glucose [Mass/Vol] 400 mg/dL High 70-110 [facility] [place] Performing Instrument - POCT MASSED2 Normal [facility] [place] Perf Loc - POCT Tested at AM [facility] [place] Comment on above: Result Comment: [facility] [address] [place], [place] [address] Glucose [Mass/Vol] 488 mg/dL Critically abnormal 70-110 [facility] [place] Performing Instrument - POCT MASSED2 Normal [facility] [place] TROP (POC)on 05-07-2023 Perf Loc - POCT Tested at AM [facility] [place] Comment on above: Result Comment: [facility] [address] [place], [place] [address] Performing Instrument - POCT TRIAGE2 Normal [facility] [place] Troponin I.cardiac [Mass/Vol] ng/mL Normal 0.00-0.08 [facility] [place] Comment on above: Result Comment: Trop onin I reference ranges: <0.05 ng/mL Negative and non-diagnostic. >=0.05 ng/mL Consistent with cardiac damage, increased clinical risk and possibility of myocardial infarction. Serial measurements, a rise & fall in test results, clinical history, appropriate symptoms and/or ECG changes may help assess possibility of CO. *Other non-acute coronary syndrome conditions such as CHF, myocarditis, pulmonary emboli, sepsis and cardiac surgery could result in myocardial damage and increased troponin levels. UA (POC)on 05-07-2023 Perf Loc - POCT Tested at AM Normal [facility] [place] Comment on above: Result Comment: [facility] [place] [address] [place], [place] [address] Appearance (U) Slightly Cloudy Normal [facility] [place] Bilirubin Ql (U) Negative Normal Neg-Trace [facility] [place] Color (U) [place] Normal [facility]) Glucose Ql (U) 500 mg/dL Abnormal Negative [facility]) Hemoglobin Ql (U) Large Abnormal Neg-Trace [facility]) Ketones Ql (U) 80 mg/dL Normal [facility]) Leukocyte esterase Test strip Ql (U) Trace Abnormal Neg-Trace [facility]) Nitrite Ql (U) Negative Normal Negative [facility]) Performing Instrument - POCT CLINITEK Normal [facility] [place] pH (U) 5.5 [pH] Normal 5.0 - 8.0 [facility]) Protein Ql (U) 100 mg/dL Abnormal Neg-30 [facility]) Specific gravity (U) [Rel density] 1.020 Normal 1.006-1.02 9 [facility] [place] Urobilinogen Qn (U) 0.2 {Kushal'U}/dL Normal 0.2-1.0 [facility]) CNCOon 05-19-2022 CNCO Letter Text Normal [facility] No Panel Informationon 01-06 [facility] HEMOGLOBIN A1C (POC)on 09-10 HbA1c (Bld) [Mass fraction] 7.6 % [facility] CLOPIDOGRL 2C19on 09-08-2020 2C19 GENOTYPE: *2/*2 Normal () [facility] Comment on above: Order Comment: Samantha Gonzalez Performed By: #### L 500.18965, L500.67481, L500.22109, L500.68632, L500.03048, L500.75578 ####[facility] [id number] [place], [place] [address]Mg# [phone]#### L550.67885 ####[facility] [id number] [place] [address]Yi# [phone] 2C19 GTYPE INTP Normal () [facility] Comment on above: Order Comment: Samantha Gonzalez Result Comment: Cyto chrome T2675K36 (HTM7W69) is a member of the cytochrome P450 superfamily. YCO7O73 is involved in the metabolism of drugs including clopidogrel, anticonvulsants, diazepam, omeprazole, tricyclic antidepressants and proton pump inhibitors. The SCC9D78 Cytochrome D2142N71 (YPJ4U58) is a member of the cytochrome P450 superfamily. IHY7J29 is involved in the metabolism of drugs compared to wild-type. Depending on the combination of alleles in an individual, drug-metabolizing phenotypes associated with the PQE5L50 enzyme can vary. Drug-metabolizing phenotypes can be classified according to the level of metabolism: poor metabolizers (PMs), intermediate metabolizers (IMs), extensive metabolizers (EMs), and ultrarapid metabolizers (UMs). An individual's phenotype depends on the combination of alleles they have. PMs have little to no AIJ8R46 enzyme activity and have two non-functional alleles. EMs are defined as having normal enzyme activity, and are homozygous wild-type for the *1 functional allele. UMs have increased enzyme activity resulting from two kgzb-pb-dmjhonnc alleles or one functional allele and one sgao-zr-lhhpuqnt allele. The *17 allele is the only UM allele identified thus far for LNK2S47. IMs have intermediate enzyme activity resulting from one functional allele and one knfr-km-pzvauopa allele. The consequence of a *17 allele with a loss of function allele may be in between the EM and IM phenotypes and may possibly be substrate dependent. Variations in IOJ4M19 enzyme activity can lead to variety of clinical implications. PMs have reduced enzyme activity and may require alternative therapeutic treatment or adjustment of standard dosage regime to reduce the risk of concentration-dependent side effects, overdose drug toxicity or prolonged therapeutic effect as a result of impaired clearance of drug. If a drug is administered as a prodrug that requires activation by ZUO1L58 enzyme, PMs may experience inadequate therapeutic effect if the drug does not reach the therapeutic dose. EMs in general have normal enzyme activity and can be administered YIW2E91- metabolized drugs using standard dosing. EMs who are heterozygous for a variant allele with a non-functional allele may have a modest decrease in enzyme activity. For UMs, rapid metabolism of the drug may lead to inadequate drug efficacy and therapeutic failure, because the drug may not reach the therapeutic serum concentration. For prodrugs like clopidogrel, UMs may be at risk of elevated exposure to active drug metabolites leading to adverse drug reactions (Marcelo et al. 2011). The physiological effect of JWH6G15 phenotype depends on individual clinical profile. The co-administration of drugs metabolized by CJX7D35, or other drugs that can act as inducers or inhibitors of EUF7V61, also affects the drug metabolizing phenotype. Other factors include the individual's age, weight, gender, renal and liver function, disease status, and lifestyle factors such as smoking, diet and alcohol consumption (Arash 2000). It is important to interpret genotyping test results in the context of an individual's profile. Performed By: #### L 500.11331, L500.10548, L500.60115, L500.15407, L500.13460, L500.39863 ####[facility] [id number] [place], [place] [address]Pj# [phone]#### L550.91922 ####[facility] [place] [address]Df# [phone] 2C19 INFORM: Normal () [facility] Comment on above: Order Comment: Samantha s: Lisa Result Comment: Meth odology / Intended Use / Indications for Use: This assay utilizes the reBounces xTAG(R) QPG0S77 Kit v3 US- IVD. The xTAG(R) JAM5Y88 Kit v3 is an in vitro diagnostic test used to simultaneously detect and identify a panel of nucleotide variants found within the highly polymorphic VMC974 2C19 gene, located on chromosome 10q24, from genomic DNA extracted from EDTA or citrate anticoagulated whole blood samples. The xTAG(R) BFW8H12 Kit v3 is a qualitative genotyping assay which can be used as an aid to clinicians in determining therapeutic strategy for the therapeutics that are metabolized by the VLB5J42 gene product, specifically *2, *3 and *17. The kit is not indicated for stand-alone diagnostic purposes. This test is not intended to be used to predict drug response or non- response. The xTAG(R) DRQ0S83 Kit v3 incorporates multiplex Polymerase Chain Reaction (PCR) and multiplex Allele Specific Primer Extension (ASPE) with a proprietary universal array sorting system on the reBounces platform. Alleles detected by xTAG(R) UVX8A70 Kit v3: *1,*2,*3,*17. The wild-type (WT) allele, TZY1W48*1, is the most common variant. Only alleles listed above will be identified by this product. Other MTH3X48 alleles, which are rare, or were unknown at the time of release of this product, will not be identified by this product. These other alleles may result in either a *1 call, a no-call, or a call of a genetically related allele included in this kit. References: 1. Marcelo et al. (2011). Individual variability in the disposition of and response to clopidogrel: pharmacogenomics and beyond. Pharmacol Ther 129(3): 267- 89. 2. Arash, U. A. (2000). Pharmacogenetics and adverse drug reactions. Lancet 356(9578): 2719-25. 3. Package Insert: reBounces xTAG(R) PYI2W74 Kit v3 US-IVD. [id number] Rev E 05/2017. Performed At: [facility] [address] [place] [address] [id number] Francis Cuevas MD [id number] Performed By: #### L 500.51072, L500.87491, L500.96305, L500.55907, L500.58906, L500.89043 ####[facility] [id number] [place], [place] [address]Cg# [phone]#### L550.27983 ####[facility] [id number] [place] [address]Jh# [phone] 2C19 METAB ACT: Poor Metabolizer Normal () [facility] Comment on above: Order Comment: Campu s: M Performed By: #### L 500.30201, L500.31218, L500.36111, L500.93603, L500.25255, L500.20511 ####[facility] [id number] [place], [place] [address]Ie# [phone]#### L550.07389 ####[facility] [id number] [place] [address]Hd# [phone] DIRECTOR REVIEW Normal () [facility] Comment on above: Order Comment: Campu s: M Result Comment: Sil Blanco MD, PhD Director [employer] Performed By: #### L 500.60540, L500.85481, L500.30130, L500.57539, L500.97293, L500.81134 ####[facility] [id number] [place], [place] [address]Wk# [phone]#### L550.48618 ####[facility] OF [address] [address]Lu# [phone] B12on 08-26-2020 Cobalamin (Vitamin B12) [Mass/Vol] 1714.0 pg/mL High 193-986 [facility] Comment on above: Performed By: #### L 500.96088 ####[facility] [id number] [place], [place] [address]Dx# [phone] BMPon 08-25-2020 Anion gap [Moles/Vol] 7 mmol/L Normal 5-16 [facility] Comment on above: Order Comment: Campu s: M Performed By: #### L 500.56961, L500.45845, L500.90118, L500.00178, L500.22031, L500.82872 #### [facility] [address] [place] [address] #### L550.91313 #### [facility] [address] [place] [address] Calcium [Mass/Vol] 9.9 mg/dL Normal 8.5-10.5 [facility] Comment on above: Order Comment: Campu s: M Result Comment: NOTE NEW NORMAL RANGE DUE TO REAGENT CHANGE Performed By: #### L 500.54236, L500.87798, L500.96879, L500.57593, L500.35385, L500.56302 #### [facility] [address] [place] [address] #### L550.09165 #### [facility] [address] [place] [address] Chloride [Moles/Vol] 106 mmol/L Normal 98-107 [facility] Comment on above: Order Comment: Brysonu s: M Performed By: #### L 500.88191, L500.61976, L500.01591, L500.09920, L500.10802, L500.77613 #### [facility] [address] [place] [address] #### L550.02004 #### [facility] [place] [address] [place] [address] CO2 [Moles/Vol] 26.0 mmol/L Normal 21-32 [facility] Comment on above: Order Comment: Brysonu s: M Performed By: #### L 500.55042, L500.33404, L500.99578, L500.82071, L500.47766, L500.98306 #### [facility] [address] [place] [address] #### L550.60330 #### [facility] [place] [address] [place] [address] Creatinine [Mass/Vol] 0.96 mg/dL High 0.510-0.95 0 [facility] Comment on above: Order Comment: Brysonu s: M Result Comment: Tiffany ents receiving either N-Acetylcysteine (NAC) or Metamizole prior to venipuncture, may have falsely depressed results. Performed By: #### L 500.23543, L500.84826, L500.16823, L500.46237, L500.31003, L500.63356 #### [facility] [address] [place] [address] #### L550.85608 #### [facility] [place] [address] [place] [address] Glucose [Mass/Vol] 82 mg/dL Normal 70-100 [facility] Comment on above: Order Comment: Samantha brooks: Lisa Result Comment: 70-1 00- Normal Fasting; 100-125 Impaired Fasting; greater than 126 on more than one result- Diabetes. ADA guidelines. Results may be falsely elevated after the administration of Sulfapyridine. Results may be falsely depressed after the administration of Sulfasalazine. Performed By: #### L 500.37383, L500.17775, L500.98056, L500.97349, L500.20751, L500.37369 #### [facility] [address] [place] [address] #### L550.31742 #### [facility] [place] [address] [place] [address] Potassium [Moles/Vol] 4.0 mmol/L Normal 3.5-5.1 [facility] Comment on above: Order Comment: Samantha brooks: Lisa Result Comment: Slig ht Hemolysis, Result may be affected. Performed By: #### L 500.23893, L500.90852, L500.38642, L500.81172, L500.62415, L500.20344 #### [facility] [address] [place] [address] #### L550.31627 #### [facility] [place] [address] [place] [address] Sodium [Moles/Vol] 139 mmol/L Normal 136-145 [facility] Comment on above: Order Comment: Campu s: M Performed By: #### L 500.54706, L500.73320, L500.37466, L500.95222, L500.17003, L500.22869 #### [facility] [address] [place] [address] #### L550.33094 #### [facility] [address] [place] [address] Urea nitrogen [Mass/Vol] 14 mg/dL Normal 7-26 [facility] Comment on above: Order Comment: Campu s: M Performed By: #### L 500.51679, L500.24186, L500.05044, L500.99885, L500.77239, L500.03905 #### [facility] [address] [place] [address] #### L550.26763 #### [facility] [address] [place] [address] Urea nitrogen/Creatinine [Mass ratio] 15 mg/mg Normal 15-24 [facility] Comment on above: Order Comment: Campu s: M Performed By: #### L 500.38742, L500.72866, L500.64496, L500.73634, L500.87932, L500.30720 #### [facility] [address] [place] [id number] #### L550.45850 #### [facility] [address] [place] [address] CBCon 08-25-2020 Erythrocyte distribution width (RBC) [Ratio] 12.1 % Normal 11-14.5 [facility] Comment on above: Order Comment: Campu s: M Performed By: #### L 200.89760 #### [facility] [address] [place] [address] Hematocrit (Bld) [Volume fraction] 31.3 % Low 35.0-47.0 [facility] Comment on above: Order Comment: Campu s: M Performed By: #### L 200.93798 #### [facility] [address] [place] [address] Hemoglobin (Bld) [Mass/Vol] 10.2 g/dL Low 11.5-15.5 [facility] Comment on above: Order Comment: Campu s: M Performed By: #### L 200.27136 #### [facility] [address] [place] [address] MCHC (RBC) [Mass/Vol] 32.6 g/dL Normal 32.0-36.0 [facility] Comment on above: Order Comment: Campu s: M Performed By: #### L 200.33421 #### [facility] [address] [place] [address] MCV (RBC) [Entitic vol] 85.1 fL Normal 80.0-99.0 [facility] Comment on above: Order Comment: Campu s: M Performed By: #### L 200.77638 #### [facility] [address] [place] [address] Nucleated RBC/100 WBC (Bld) [Ratio] 0.0 % Normal Less than 1 [facility] Comment on above: Order Comment: Campu s: M Performed By: #### L 200.08309 #### [facility] [address] [place] [address] Platelet mean volume (Bld) [Entitic vol] 9.7 fL Normal 9.4-12.4 [facility] Comment on above: Order Comment: Campu s: M Performed By: #### L 200.43801 #### [facility] [address] [place] [address] PLT 377 K/CU MM Normal 150-450 [facility] Comment on above: Order Comment: Campu s: M Performed By: #### L 200.23897 #### [facility] [address] [place] [address] RBC 3.68 M/CU MM Low 3.90-5.30 [facility] Comment on above: Order Comment: Campu s: M Performed By: #### L 200.38379 #### [facility] [address] [place] [address] WBC 5.0 K/CUMM Normal 4.5-11.0 [facility] Comment on above: Order Comment: Campu s: M Performed By: #### L 200.66868 #### [facility] [address] [place] [address] DISCH.SUMon 08-25-2020 DISCH.[facility] Patient Name: MARIELLA RAMIREZ [address] [place] [address] Date of : [address] [address] Unit Number: [id number] Discharge Summary Patient Status: ADM IN Attending Doctor: Melissa Gutierrez MD Service Date: 08/25/20 1049 Discharge Summary Admit Date Admission Date Time: 08/24/20 1433 Anticipated Discharge Date 08/25/20 Final Dx/Problem List 1. Hypertension 2. Hyperglycemia 3. Chest pain Patient Problems Reviewed: Yes Chief Complaint/HPI CP, HTN Reason for Admission HTN HYPERGLYCEMIA, CHEST PAIN Hospital Course Coronary artery disease -Aspirin, Brilinta, statin, BB -Echocardiogram class I diastolic dysfunction, ejection fraction 65 to 70% -August 24 cardiac catheterization- Mid LAD tubular 80 to 90% stenosis. The length the lesion is 5 to 10 mm long, lesion type B2, JOCELYN-3 flow. Third diagonal branch tubular 80 to 90% proximal stenosis in the third diagonal branch. Length the lesion was 5 mm long, lesion type B2, JOCELYN-3 flow. Hypertension -BB and lisinopril Uncontrolled diabetes mellitus -Lantus, sliding scale insulin -OUTPT FOLLOW UP WITH Endocrinology -Hemoglobin A1c of 11.1 Hyperlipidemia -Lipid profile triglycerides 101 cholesterol 142 LDL 69 HDL 52 -STATIN ENCOURAGED COMPLIANCE Pertinent Physical Findings Alert oriented x3 regular rate and rhythm S1-S2 present Clear lung sounds to auscultation, no wheezing, no rales, no rhonchi, no use of accessory muscles, no conversational dyspnea Soft nontender abdomen, bowel sounds present, no guarding no rebounding, no rigidity Extremities no edema no cyanosis no clubbing No focal deficits, cranial nerves II to XII grossly intact, clear speech, no facial droop noted Atraumatic normocephalic head, trachea midline Consults Cardiology, Endocrine Prescriptions Stop taking the following medications: Lisinopril/Hctz (Zestoretic 20-12.5 MG Tab) 1 EACH TABLET 1 EACH ORAL EVERY DAY Continue taking these medications: glipIZIDE* (Glucotrol XL Tab*) 10 MG TAB.ER.24 10 MILLIGRAM ORAL ONCE DAILY 30 MIN. BEFORE MEAL Start taking the following new medications: Ticagrelor* (Brilinta Tab*) 90 MG TABLET 90 MILLIGRAM ORAL 2 TIMES DAILY Qty = 60 Refills = 1 Atorvastatin Calcium (Atorvastatin Calcium) 40 MG TABLET 40 MILLIGRAM ORAL AT BEDTIME Qty = 30 Refills = 1 Lisinopril (Prinivil/Zestril) (Prinivil/Zestril Tab) 20 MG TABLET 20 MILLIGRAM ORAL 2 TIMES DAILY Qty = 60 Refills = 1 Metoprolol Succinate(Toprol XL (Toprol Tab.sa) 50 MG TAB.SA 50 MILLIGRAM ORAL EVERY DAY Qty = 60 Refills = 1 Aspirin (Lo-Dose Aspirin EC) 81 MG TABLET.DR 81 MILLIGRAM ORAL DAILY WITH A MEAL Qty = 60 Refills = 1 Insulin Glargine,Hum.rec.anlog (Lantus Solostar) 100 UNIT/1 ML INSULN.PEN 12 UNITS SUBCUTANEOUS* DAILY AT 4 PM Qty = 1 Refills = 1 Insulin Lispro* (humaLOG PEN*) 100 UNIT/1 ML INSULN.PEN 3 UNIT SUBCUTANEOUS* 3 TIMES A DAY 30 MIN AC Qty = 1 Refills = 1 Instructions: humalog 3 units with breakfast, lunch, dinner The following medications have been changed: Old: metFORMIN HCL* (Glucophage XR 750MG Tab*) 750 MILLIGRAM ORAL DAILY WITH A MEAL New: metFORMIN HCL* (Glucophage XR 750MG Tab*) 750 MG TAB.SR 750 MILLIGRAM ORAL DAILY WITH A MEAL Instructions: resume 08/27/2020 STOP TAKING METFORMIN PRIOR TO ANY EXAMS USING IV IODINATED CONTRAST DYE (IV DYE) AND HOLD FOR 48 HOURS AFTER THE PROCEDURE Referrals Ordered Referrals Cardiology Referral In Five to S... For Providers: Anibal Jones MD [address] [facility] [address] [address] Endocrinology In [facility] to S... For Groups: [facility] [address] [place] [address] Condition: Improved, Stable Disposition Home w/ Home Health Care Additional Information TIME SPENT ON DC 40 MINUTES Disclaimer This dictation was created using voice recognition software. Phonetic and/or minor grammatical errors may exist. eSign Date and Time Adele Meade DO Verified/Reviewed by 08/25/20 1204 Normal [facility] Fidelia 08-25-2020 FERR 6.1 NG/ML Low 8.0-307.0 [facility] Comment on above: Order Comment: Samantha s: M Performed By: #### L 500.74615, L500.74355, L500.22473, L500.66592, L500.00813, L500.92971 ####[facility] [id number] [place], [place] [address]Ms# [phone]#### L550.08923 ####[facility] [id number] [place] [address]Qe# [phone] FOLIC ACIDon 08-25-2020 FOLIC ACID 35.25 NG/ML Normal >3.0 [facility] Comment on above: Order Comment: Samantha s: M Result Comment: Slig ht Hemolysis, Result may be affected. Performed By: #### L 500.81357, L500.89772, L500.84775, L500.35747, L500.36080, L500.98610 ####[facility] [id number] [place], [place] [address]Sv# [phone]#### L550.97996 ####[facility] [id number] [place] [address]Dh# [phone] GFR ESTon 08-25-2020 IF AMER Greater than 60 Normal [facility] Comment on above: Order Comment: Samantha brooks: M Performed By: #### L 500.68378, L500.62087, L500.81601, L500.13000, L500.30432, L500.50564 #### [facility] [address] [place] [address] #### L550.04465 #### [facility] [address] [place] [address] IF non-AFR AMER Greater than 60 Normal [facility] Comment on above: Order Comment: Samantha Gonzalez Performed By: #### L 500.11539, L500.07329, L500.41258, L500.76571, L500.36121, L500.04441 #### [facility] [place] [address] #### L550.96059 #### [facility] [address] [place] [address] GLUCOSE METERon 08-25-2020 Glucose [Mass/Vol] 297 mg/dL High 70-115 [facility] Glucose [Mass/Vol] 75 mg/dL Normal 70-115 [facility] IRON PANELon 08-25-2020 Iron [Mass/Vol] 24 ug/dL Low 50-170 [facility] Comment on above: Order Comment: Samantha Gonzalez Result Comment: Tiffany ents treated with metal-binding drugs (e.g.deferoxamine) may have depressed iron values, as chelated iron may not properly react in the Siemens iron assay. Performed By: #### L 500.34972, L500.12287, L500.14033, L500.64042, L500.13268, L500.64043 #### [facility] [address] [place], [place] [address] #### L550.01122 #### [facility] [address] [place] [address] IRON SAT 5 % Low 22-44 [facility] Comment on above: Order Comment: Campu s: M Performed By: #### L 500.62791, L500.63392, L500.63147, L500.70366, L500.68662, L500.42376 #### [facility] [address] [place] [address] #### L550.08140 #### [facility] [address] [address] TIBC 480 UG/DL Normal 221-481 [facility] Comment on above: Order Comment: Campu s: M Performed By: #### L 500.83393, L500.24515, L500.26862, L500.37297, L500.62830, L500.85649 #### [facility] [address] [place] [address] #### L550.54275 #### [facility] [address] [place] [phone] LIVERon 08-25-2020 Albumin [Mass/Vol] 3.3 g/dL Normal 3.2-5.0 [facility] Comment on above: Order Comment: Campu s: M Performed By: #### L 500.61069, L500.53783, L500.06525, L500.28517, L500.92875, L500.51948 #### [facility] [address] [place] [address] #### L550.37173 #### [facility] [address] [place] [phone] Albumin/Globulin [Mass ratio] 1.1 {ratio} Normal 0.8-2.0 [facility] Comment on above: Order Comment: Campu s: M Performed By: #### L 500.27693, L500.64625, L500.89123, L500.19273, L500.17777, L500.53856 #### [facility] [address] [place] [address] #### L550.24173 #### [facility] [address] [place] [address] ALK PHOS 61 U/L Normal 45-117 [facility] Comment on above: Order Comment: Campu s: M Performed By: #### L 500.05783, L500.45019, L500.55370, L500.47140, L500.17820, L500.76352 #### [facility] [address] [place] [address] #### L550.66659 #### [facility] [address] [place] [address] ALT [Catalytic activity/Vol] 25 U/L Normal 13-61 [facility] Comment on above: Order Comment: Campu s: M Result Comment: RESU LTS MAY BE FALSELY DEPRESSED AFTER THE ADMINISTRATION OF SULFASALAZINE AND/OR SULFAPYRIDINE. Performed By: #### L 500.73885, L500.87549, L500.06697, L500.76575, L500.03762, L500.50039 #### [facility] [address] [place] [address] #### L550.30392 #### [facility] [address] [place] [address] AST [Catalytic activity/Vol] 32 U/L Normal 8-34 [facility] Comment on above: Order Comment: Campu s: M Result Comment: RESU LTS MAY BE FALSELY DEPRESSED AFTER THE ADMINISTRATION OF SULFASALAZINE AND/OR SULFAPYRIDINE. Performed By: #### L 500.56330, L500.87237, L500.59904, L500.35004, L500.44296, L500.79411 #### [facility] [address] [place] [address] #### L550.54032 #### [facility] [address] [address] BILI DIRECT 0.1 MG/DL Normal 0.00-0.36 [facility] Comment on above: Order Comment: Campu s: M Result Comment: NOTE NEW NORMAL RANGE DUE TO REAGENT CHANGE Performed By: #### L 500.92028, L500.17829, L500.40815, L500.96875, L500.41364, L500.10124 #### [facility] [address] [place] [address] #### L550.05145 #### [facility] [address] [address] BILI TOTAL 0.40 MG/DL Normal 0.2-1.0 [facility] Comment on above: Order Comment: Campu s: M Performed By: #### L 500.72839, L500.25238, L500.56436, L500.37033, L500.03161, L500.52417 #### [facility] [address] [place] [address] #### L550.22411 #### [facility] [address] [address] Globulin (S) [Mass/Vol] 3.1 g/dL Normal 2.2-4.2 [facility] Comment on above: Order Comment: Campu s: M Performed By: #### L 500.99691, L500.90011, L500.02071, L500.92492, L500.73440, L500.36262 #### [facility] [address] [place] [address] #### L550.78733 #### [facility] [address] [place] [address] Protein [Mass/Vol] 6.4 g/dL Normal 6.0-8.5 [facility] Comment on above: Order Comment: Samantha s: M Performed By: #### L 500.20462, L500.76531, L500.27480, L500.67216, L500.00286, L500.19835 #### [facility] [address] [place] [address] #### L550.28014 #### [facility] [address] [address] PROG.Landy 08-25-2020 PROG.[facility] Patient Name: MARIELLA RAMIREZ [address] [facility] Date of : [address] [address] Unit Number: [id number] Progress Note-Cardiology Patient Status: DIS IN Attending Doctor: Melissa Gutierrez MD Service Date: 08/25/20830 Progress Note-Cardiology ([facility]) Assessment/Plan Assessment/Problem List: 1. Fatigue due to excessive exertion Heart cath 5/10 positive CAD 1. PCI/stent with a 2.25x16 Synergy/drug-eluting stent to the mid LAD reducing the initial tubular 80 to 90% stenosis and leaving less than 10% residual stenosis. 2. PTCA of the third diagonal branch reducing initial 80 to 90% proximal stenosis and leaving 30 to 40% residual stenosis. Recommend cardiac rehab. Recommend case management eval for medication assistance to obtain Brilinta Follow-up with cardiology outpatient in 6 to 8 weeks On Sun 3:05p August 23, 2020 DON JAQUEZ CNP wrote Impression: 1. Exertional fatigue rule out anginal equivalent 2. Positive EST 3. Positive risk factors Recommendations: 1. Left heart cath 2. Blood pressure control 3. Further recommendations to follow 2. Abnormal nuclear stress test Subjective Subjective: No complaints or cardiac events Objective Vital Signs: Vital Signs (Last) Result Date Time B/P 140/85 08/25 0800 B/P Mean 108 08/25 0800 Pulse 100 08/25 0800 Resp 16 08/25 0800 Pulse Ox 96 08/25 0723 Temp 97.9 08/25 0723 Vital Signs (48hr Range) Date Temp Pulse Resp B/P B/P Mean Pulse Ox FiO2 08/23-08/25 97.9-98.8 80-106 16-18 108-200/50-95 72-142 95-99 I[facility] 24 Hour Summary 08/25 0000 08/24 0000 08/23 0000 Intake Total 600 1192 Output Total 0 850 Balance 600 342 Intake, IV 892 Intake, Oral 600 300 Number 5 2 Unmeasured Voids Output, Stool 0 0 Output, Urine 850 Patient 176 lb 169 lb 169 lb Weight Weight: 171 pounds 171 Lab Results: Laboratory Tests (48hr) 08/25 08/25 08/24 08/24 0619 0415 2113 1727 Chemistry Sodium (136 - 145 MMOL/L) 139 Potassium (3.5 - 5.1 MMOL/L) 4.0 Chloride (98 - 107 MMOL/L) 106 Carbon Dioxide (21 - 32 MMOL/L) 26.0 Anion Gap (5 - 16 MMOL/L) 7 BUN (7 - 26 MG/DL) 14 Creatinine (0.510 - 0.950 MG/DL) 0.96 H Est GFR ( Amer) Greater than 60 Est GFR (Non-Af Amer) Greater than 60 BUN/Creatinine Ratio (15 - 24) 15 Glucose (70 - 100 MG/DL) 82 Whole Bld Glucose (70 - 115 MG/DL) 75 90 191 H Total Calcium (8.5 - 10.5 MG/DL) 9.9 Iron (50 - 170 UG/DL) 24 L TIBC (221 - 481 UG/DL) 480 Iron Saturation (22 - 44 %) 5 L Ferritin (8.0 - 307.0 NG/ML) 6.1 L Total Bilirubin (0.2 - 1.0 MG/DL) 0.40 Direct Bilirubin (0.00 - 0.36 MG/DL) 0.1 AST (8 - 34 U/L) 32 ALT (13 - 61 U/L) 25 Alkaline Phosphatase (45 - 117 U/L) 61 Serum Total Protein (6.0 - 8.5 GM/DL) 6.4 Albumin (3.2 - 5.0 GM/DL) 3.3 Globulin (2.2 - 4.2 GM/DL) 3.1 Albumin/Globulin Ratio (0.8 - 2.0) 1.1 Folate (>3.0 NG/ML) 35.25 Hematology WBC (4.5 - 11.0 K/CUMM) 5.0 RBC (3.90 - 5.30 M/CU MM) 3.68 L Hgb (11.5 - 15.5 G/DL) 10.2 L Hct (35.0 - 47.0 %) 31.3 L MCV (80.0 - 99.0 fl) 85.1 MCHC (32.0 - 36.0 GM/DL) 32.6 RDW (11 - 14.5) 12.1 Plt Count (150 - 450 K/CU MM) 377 MPV (9.4 - 12.4) 9.7 Nucleated RBCs (Less than 1 %) 0.0 08/24 08/24 08/23 08/23 1221 0634 1627 1134 Chemistry Whole Bld Glucose (70 - 115 MG/DL) 150 H 167 H 263 H Coagulation POC Activ Clotting Time (100 - 150 SECONDS) 219 H Medications: Medications Current Sig/Delmy Start time Last Medication Dose Route Stop Time Status Admin Acetaminophen 650 MG Q4HPRN PRN 08/24 1230 AC 08/24 (TYLENOL TAB) PO 2114 Al Hydrox/Mg Hydrox/ 30 ML Q6HPRN PRN 08/22 1130 AC Simethicone PO (MAALOX (ALAMAG)PLUS ORAL LIQ) Aspirin 81 MG QDAYWM 08/25 0800 AC 08/25 (ECOTRIN TAB.EC) PO 08 Atorvastatin Calcium 40 MG QHS 08/23 2200 AC 08/24 (LIPITOR TAB) PO 2114 Benzocaine/Menthol 1 ANDERSON Q2HPRN PRN 08/22 1130 AC (CEPACOL LOZENGE) MM Bisacodyl 10 MG QDAYPRN PRN 08/22 1130 AC (DULCOLAX RECT) RC Guaifenesin/ 10 ML Q4HPRN PRN 08/22 1130 AC Dextromethorphan PO (ROBITUSSIN-DM ORAL LIQ) Heparin Sodium/ 500 ML DIRECTED PRN 08/24 1230 AC Sodium Chloride IV (HEPARIN/NS 2 UNITS/ ML 500ML BAG) Hydralazine HCl 10 MG Q4HPRN PRN 08/22 1130 AC 08/24 (APRESOLINE VIAL) IV 1339 Hydrocodone Bitart/ 1 EACH Q4HPRN PRN 08/24 1230 AC Acetaminophen PO (NORCO 5-325 TAB) Hypromellose 1 GTT Q2HPRN PRN 08/22 1130 AC (ISOPTO TEARS 0.5% OU OPTH DROP) Insulin Glargine 12 UNITS [id number] 08/24 1600 AC 08/24 (LANTUS SOLOSTAR PEN) SC 1732 Insulin Human Lispro 3 UNITS [id number] (more content not included)... Normal [facility] Progress Note-Cardiology Normal [facility] PROG.ENDO 08-25-2020 PROG.ENDO [facility] Patient Name: MARIELLA RAMIREZ [employer] [place] Date of : [address] [address] Unit Number: [id number] Progress Note-Endocrinology Patient Status: DIS IN Attending Doctor: Adele Meade DO Service Date: 08/25/20814 Progress Note - Endocrinology Subjective S: (2 ROS minimum) Patient had heart cath yesterday with stent placement. Blood sugar 75 this morning. Stable on MDI regimen. She did not get her basal insulin injection until evening after her procedure. Objective Nursing Vitals Vital Signs (Last) Result Date Time Pulse Ox 96 08/25 722 B/P 151/87 08/25 722 B/P Mean 112 08/25 722 Temp 97.9 08/25 722 Pulse 90 08/25 722 Resp 16 08/25 722 Physical Exam General: The patient is lying in the bed. Vital signs: Patient is alert and oriented x3. Neck: No obvious goiter or cervical lymphadenopathy. Lungs: Auscultation of the lungs with decreased breath sounds at the bases. Heart: Regular rate and rhythm. Abdomen: soft, no obvious palpable masses or hepatosplenomegaly. Extremities: Palpable peripheral pulses. No focal neurological deficit. Diagnostic Data Lab 24hr (CBC/BMP Aroldo) 08/25/20 0619: Whole Bld Glucose 75 08/25/20 0415: Vitamin B12 Pending 08/25/20414: [Embedded Image Not Available] Anion Gap 7, Est GFR ( Amer) Greater than 60, Est GFR (Non-Af Amer) Greater than 60 , BUN/Creatinine Ratio 15, Glucose 82, Total Calcium 9.9, Iron 24 L, TIBC 480, Iron Saturation 5 L, Ferritin 6.1 L, Total Bilirubin 0.40, Direct Bilirubin 0.1, AST 32, ALT 25 , Alkaline Phosphatase 61, Serum Total Protein 6.4, Albumin 3.3, Globulin 3.1, Albumin/ Globulin Ratio 1.1, [id number] Activity Pending, [id number] Mutation Intrp Pending, [id number] Genotype Pending, [id number] Reviewed By Pending, Folate 35.25, RBC 3.68 L, MCV 85.1, MCHC 32.6, RDW 12.1, MPV 9.7, Nucleated RBCs 0.0 08/24/203: Whole Bld Glucose 90 08/24/20 1727: Whole Bld Glucose 191 H 08/24/20 1221: POC Activ Clotting Time 219 H Assessment/Plan Conclusion 1. Type 2 diabetes mellitus with hyperglycemia Stable on MDI. Lantus injection was late yesterday so will continue to give in the evening. WIll follow trend. No metformin for 48 hours after IV contrast. On Mon 1:57p August 24, 2020 MARIA D CLARKE wrote Patient is a poorly controlled diabetic (A1c 11%) with history of non-compliance. He has been transitioned to an MDI regimen and will remain on for the remainder of her hospital stay. We will add oral agents back as able. She will need insulin as an outpatient. She understands the complications of diabetes and will work on compliance. ADA 1800, SS Novolog 2. Type 2 diabetes, uncontrolled, with neuropathy Patient needs to continue proper foot care try to optimize glycemic control. 3. Hypertension Improving. Primary team and cardiology following. 4. Chest pain Under the care of cardiology. 5. Hyperlipemia Cholesterol is well controlled and she is now on a statin. 6. Dietary counseling and surveillance ADA 1800. 7. Noncompliance with diabetes treatment Compliance issues were discussed with patient in detail. Disclaimer This dictation was created using voice recognition software. Phonetic and/or minor grammatical errors may exist. eSign Date and Time GlenysLeland townsend PAC Verified/Reviewed by 09/02/20 0749 [facility] Progress Note-Endocrinology Normal [facility] Jose F 08-24-2020 POC ACT 219 SECONDS High 100-150 [facility] CARD.STENTon 08-24-2020 CARD.STENT [Embedded Image Not Available] [facility] Patient Name: MARIELLA RAMIREZ [employer] [facility] Date of : [address] [address] Unit Number: [id number] Cardiac Catheterization Patient Status: DIS IN Attending Doctor: Melissa Gutierrez MD Dictated Date: 08/24/20 1613 PCI STENT Study Date: 08/24/20 Referring Physician: Anibal Jones MD Ordering Provider: Clemente Lizarraga MD Allergies: Coded Allergies: LATEX (08/22/20) Summary: This is a 50 years old femal ewho presents with chest pain. The patient underwent a stress test revealin. Normal left ventricular cavity size and pulmonary uptake. Breast shadowing present. 2. Mild reversible anterolateral defect, representing mild areas of ischemia. However, shifting breast attenuation artifact cannot be excluded. 3. Overall normal contractility with an ejection fraction of 55%. The patient underwent cardiac catheterization by Dr. Jones which revealed tubular 80 to 90% stenosis of the mid LAD and severe stenosis of the third diagonal branch.. In view of above findings, percutaneous core intervention was advised. The procedure and risks were discussed with the patient and she is agreeable to proceed. Physician: Clemente Lizarraga MD, [facility]. Procedure date 08/24/2020. Guide catheter 8 Belarusian JL4. Guidewire BMW guidewire x 3. Balloon catheter 2.0x12 Emerge. 2.25x12 Emerge. 1.5x12 Emerge. Stent 2.25x16 Synergy. Contrast Isovue Medications aspirin 81 mg 4 tablets p.o. Brilinta 180 mg p.o. Angiomax 0.75 mg/kg IV bolus followed by infusion at 1.75 mg/kg/h IV. Fentanyl 50 mcg intravenously. Nitro 20 mcg intracoronary. Lesions: 1. Mid LAD tubular 80 to 90% stenosis. The length the lesion is 5 to 10 mm long, lesion type B2, JOCELYN-3 flow. 2. Third diagonal branch tubular 80 to 90% proximal stenosis in the third diagonal branch. Length the lesion was 5 mm long, lesion type B2, JOCELYN-3 flow. Procedure technique: The patient was prepped and draped in the usual fashion. The procedure was performed via the right femoral artery approach. Arterial access was already available since this followed the diagnostic procedure. Using an 8 Belarusian JL4 guiding catheter a BMW guidewire was advanced to the mid LAD and a second BMW guidewire was advanced to the third diagonal branch. A 2.0x12 Emerge balloon catheter was used to perform balloon angioplasty to the third diagonal branch at a maximum of 7 kp for 30 seconds. The balloon catheter was removed. Next took the 2.0x12 Emerge balloon catheter to the LAD and predilatation was performed at 14 kp for 20 seconds. The balloon catheter was removed. A 2.25x16 Synergy stent was deployed in the LAD at 14 kp for 25 seconds. Additional inflations were performed with the stent delivered balloon at 16 kp for 20 seconds. The stent delivered and was removed. A new BMW guidewire with a 1.5 x 12 mm Emerge balloon catheter was advanced to the third diagonal branch. A 2.25x12 Emerge balloon catheter was advanced to the LAD. Post stent balloon inflations were performed in kissing balloon fashion leaving less than 10% stenosis and JOCELYN-3 flow in the stented mid LAD and 30 to 40% stenosis in the third diagonal branch. The patient tolerated the procedure well and there were no complications. The patient was transferred to the coronary care unit in stable condition. Final: 1. PCI/stent with a 2.25x16 Synergy/drug-eluting stent to the mid LAD reducing the initial tubular 80 to 90% stenosis and leaving less than 10% residual stenosis. 2. PTCA of the third diagonal branch reducing initial 80 to 90% proximal stenosis and leaving 30 to 40% residual stenosis. CC: Anibal Jones MD Portions of this section were scribed by APRYL CERRATO on 08/24/20 at 1615 Disclaimer This dictation was created using voice recognition software. Phonetic and/or minor grammatical errors may exist. eSign Date and Time Clemente Lizarraga MD Verified/Reviewed by 08/28/20 191 [facility] 08-24-2020 CARDIAC CATH [facility] DATE OF SERVICE: 01/2021 DEMOGRAPHICS: This is a 50-year-old female with a history of chest pain, chest discomfort. The patient recently was admitted to the hospital with the above findings. The patient was stabilized. Ultimately was recommended a left heart catheterization. Please see the consultation note for details. PROCEDURE: Left heart catheterization. PROCEDURE TECHNIQUE: The procedure, risks, and benefits were explained in detail. Consent form was signed. The patient was brought to the cardiac catheterization laboratory. The right groin area was prepped and draped in the usual sterile technique using Betadine soap solution. Using standard Zuri approach, a left heart catheterization was performed. Coronary angiography was performed in several standard views. A left ventriculogram was performed in the standard 30-degree right anterior oblique position using 45 mL of dye over a 3-second interval at 800 psi pressure. [facility] PATIENT NAME: MARIELLA RAMIREZ [facility] Dr[address] MEDICAL REC #: [id number] [place] [address] ADMIT DATE: 08/24/20 DISCHARGE DATE: 08/25/20 CARDIAC CATH ATTENDING PILARY: Adele Meade DO The patient tolerated the procedure well. There were no complications. All catheters were removed. Hemostasis was achieved. The patient was transported in stable condition back to their room. HEMODYNAMIC DATA IN MILLIMETERS OF MERCURY: 1. Aortic pressure 136/100 (117). 2. Left ventricular systolic pressure of 145. 3. LVEDP pre-angio (20); LVEDP post-angio (21). 4. Left ventriculogram revealed normal wall motion, ejection fraction greater than 55%. ANATOMIC DATA: 1. Miscellaneous: The patient had very small caliber vessels throughout the left system. 2. Left main coronary artery was normal. 3. Left anterior descending coronary artery revealed a 90% mid lesion. There was an 80% lesion and very small 1st and 3rd diagonals, one of which was associated with the left anterior descending lesion noted above. 1. The left circumflex coronary artery revealed a 90% lesion and very small 1st obtuse marginal branch. 2. The right coronary artery was dominant and normal. [facility] PATIENT NAME: MARIELLA RAMIREZ [facility] [address] [address] MEDICAL REC #: [id number] [place] [address] ADMIT DATE: 08/24/20 DISCHARGE DATE: 08/25/20 CARDIAC CATH ATTENDING PHY: Adele Meade DO IMPRESSION: 1. Two-vessel coronary artery disease. 2. Small caliber vessels. 3. Normal left ventricular systolic function. 4. Mild systemic arterial hypertension. 5. Left ventricular diastolic dysfunction. RECOMMENDATIONS: 1. Would recommend aggressive medical therapy. 2. PCI of the left anterior descending coronary artery. Anibal Jones MD /[id number] SSI File#: [id number] END OF DOCUMENT / CHANGE LOG FOLLOWS Last Edited By Elec. Signed By Anibal Jones MD #SIMBR Anibal Jones MD #ANURAG on 09/01/2020 07:52 ET on 09/01/2020 07:52 ET [facility] PATIENT NAME: MARIELLA RAMIREZ [facility] MEDICAL REC #: [id number] [place] [address] ADMIT DATE: 08/24/20 DISCHARGE DATE: 08/25/20 CARDIAC CATH ATTENDING PHY: Adele Meade DO Revision Number - 2 Verified/Reviewed by 09/01/20 0752 [facility] PATIENT NAME: MARIELLA RAMIREZ Dr. [facility] MEDICAL REC #: [id number] [place] [address] ADMIT DATE: 08/24/20 DISCHARGE DATE: 08/25/20 CARDIAC CATH ATTENDING PHY: Adele Meade DO Normal [facility] CONS.ENDOon 08-24-2020 CONS.ENDO [facility] Patient Name: MARIELLA RAMIREZ [facility] Date of : [address] [place], [place] [address] Unit Number: [id number] CONSULTATION-ENDOCRINOLOGY Patient Status: ADM Caitlin Attending Doctor: Melisas Gutierrez MD Service Date: 08/24/20 0755 CONSULTATION-ENDOCRINOLOGY Referring Physician Melissa Gutierrez MD Consulted Provider Maria D Clarke MD Reason for Consult Hyperglycemia History of Present Illness Patient is a 50-year-old -Congolese female with a past medical history significant for hypertension and diabetes mellitus who was a transfer from [facility] for chest pressure, vomiting, hypertensive urgency, hyperglycemia. Patient states she went to work and started having chest pressure, she called the squad, and the squad her blood sugar was noted to be 488, on arrival to [facility] her blood pressure was 192/103, she received clonidine, hydralazine, 6 units of regular insulin, Reglan, Zofran, 2 L of IV fluids. Patient states she has been out of her medications and has not been able to afford them for around a month. States she just started a new job a week ago and is waiting for insurance. She reports midsternal chest pressure as well as diffuse abdominal pain which she rates both at a 10 out of 10, also reports nausea and vomiting. She denies fever, chills, shortness of breath, dizziness, or diarrhea. EKG at [facility] Showed sinus rhythm. Hemoglobin A1c of 11. Endocrinology consulted for diabetes management. Patient states her primary care physician manages her diabetes as an outpatient. She states she is supposed to be taking 16 units of insulin twice daily (assuming long-acting). She is also supposed to be 750 mg metformin as well as glipizide extended release 10 mg. She is unable to afford her medications at this time has not taken for several weeks. She does endorse diabetic neuropathy in her feet. Past Med/Surg History Hypertension, diabetes mellitus Family History Reports mother is alive and healthy, father is from cancer Social History Denies use of: Alcohol, Tobacco, Recreational Drugs. Allergies Coded Allergies: LATEX (08/22/20) Home Medications glipIZIDE* (Glucotrol XL Tab*) 10 MG TAB.ER.24 10 MG PO QDAY.30AC, Ref 0 (Reported) Entered as Reported by ELIANA RAMIREZ on 08/22/20 1028 Last Action: Held on 08/22/20 1342 by ADELE MEADE Lisinopril/Hctz (Zestoretic 20-12.5 MG Tab) 1 EACH TABLET 1 EACH PO QDAY, Ref 0 ( Reported) Entered as Reported by ELIANA RAMIERZ on 08/22/20 1028 Last Action: Held on 08/22/20 1342 by ADELE MEADE metFORMIN HCL* (Glucophage XR 750MG Tab*) 750 MG TAB.SR 750 MG PO QDAYWM, Ref 0 ( Reported) STOP TAKING METFORMIN PRIOR TO ANY EXAMS USING IV IODINATED CONTRAST DYE (IV DYE) AND HOLD FOR 48 HOURS AFTER THE PROCEDURE Entered as Reported by ELIANA RAMIREZ on 08/22/20 1027 Last Action: Held on 08/22/20 1342 by ADELE MEADE Review of Systems Review of Systems completed and no new Endo issues noted other than above. Physical Exam Vital Signs Vital Signs (Last) Result Date Time Pulse Ox 98 08/23 2252 B/P 131/74 08/23 2252 Temp 98.1 08/23 2252 Pulse 96 08/23 2252 Resp 16 08/23 2252 Physical Exam Summary General: The patient is lying in the bed. Vital signs: Patient is alert and oriented x3. Neck: No obvious goiter or cervical lymphadenopathy. Lungs: Auscultation of the lungs with decreased breath sounds at the bases. Heart: Regular rate and rhythm. Abdomen: soft, no obvious palpable masses or hepatosplenomegaly. Extremities: Palpable peripheral pulses. No focal neurological deficit. Lab Data Lab 24hr (CBC/BMP [facility]) 08/24/20 0634: Whole Bld Glucose 150 H 08/23/20 1627: Whole Bld Glucose 167 H 08/23/20 1134: Whole Bld Glucose 263 H Conclusion 1. Type 2 diabetes mellitus with hyperglycemia Patient is a poorly controlled diabetic (A1c 11%) with history of non-compliance. He has been transitioned to an MDI regimen and will remain on for the remainder of her hospital stay. We will add oral agents back as able. She will need insulin as an outpatient. She understands the complications of diabetes and will work on compliance. ADA 1800, SS Novolog 2. Type 2 diabetes, uncontrolled, with neuropathy Patient needs to continue proper foot care try to optimize glycemic control. 3. Hypertension Improving. Primary team and cardiology following. 4. Chest pain Under the care of cardiology. 5. Hyperlipemia Cholesterol is well controlled and she is now on a statin. 6. Dietary counseling and surveillance ADA 1800. 7. Noncompliance with diabetes treatment Compliance issues were discussed with patient in detail. Disclaimer This dictation was created using voice recognition software. Phonetic and/or minor grammatical errors may exist. eSign Date and Time Maria D Clarke MD Verified/Revie (more content not included)... Normal [facility] CONSULTATION-ENDOCR INOLOGY Normal [facility] GLUCOSE METERon 08-24-2020 Glucose [Mass/Vol] 90 mg/dL Normal 70-115 [facility] Glucose [Mass/Vol] 191 mg/dL High 70-115 [facility] Glucose [Mass/Vol] 150 mg/dL High 70-115 [facility] PROG IMSon 08-24-2020 PROG [facility] Patient Name: MARIELLA RAMIREZ [address] Date of : [address] [address] Unit Number: [id number] Progress Note-Hospitalist Patient Status: ADM IN Attending Doctor: Melissa Gutierrez MD Service Date: 08/24/20 1318 Subjective S: (2 ROS minimum) Cardiac catheterization with PCI/angioplasty patient was transferred to CCU post cardiac authorization. Patient was evaluated in CCU. Patient currently asymptomatic. Denies chest pain abdominal pain nausea vomiting diarrhea lightheadedness dizziness shortness of breath. Objective (ROS) Nursing Vitals Vital Signs (Last) Result Date Time Pulse Ox 97 08/24 1445 Pulse 90 08/24 1445 Resp 16 08/24 1445 B/P Mean 124 08/24 1430 B/P 200/95 08/24 1330 Temp 98.1 08/24 1330 Alert oriented x3 regular rate and rhythm S1-S2 present Clear lung sounds to auscultation, no wheezing, no rales, no rhonchi, no use of accessory muscles, no conversational dyspnea Soft nontender abdomen, bowel sounds present, no guarding no rebounding, no rigidity Extremities no edema no cyanosis no clubbing No focal deficits, cranial nerves II to XII grossly intact, clear speech, no facial droop noted Atraumatic normocephalic head, trachea midline Assessment and Plan Conclusion 1. Hypertension 2. Hyperglycemia 3. Chest pain Coronary artery disease -Aspirin, Brilinta, statin -Echocardiogram class I diastolic dysfunction, ejection fraction 65 to 70% -August 24 cardiac catheterization- Mid LAD tubular 80 to 90% stenosis. The length the lesion is 5 to 10 mm long, lesion type B2, JOCELYN-3 flow. Third diagonal branch tubular 80 to 90% proximal stenosis in the third diagonal branch. Length the lesion was 5 mm long, lesion type B2, JOCELYN-3 flow. Hypertension -Coreg and lisinopril Uncontrolled diabetes mellitus -Lantus, sliding scale insulin -Endocrinology following -Hemoglobin A1c of 11.1 Hyperlipidemia -Lipid profile triglycerides 101 cholesterol 142 LDL 69 HDL 52 DC Disposition Plan . Disclaimer This dictation was created using voice recognition software. Phonetic and/or minor grammatical errors may exist. eSign Date and Time Adele Meade DO Verified/Reviewed by 08/24/20 3743 [facility] Progress Note-Hospitalist [facility] BMP 08-23-2020 Anion gap [Moles/Vol] 8 mmol/L Normal 5-16 [facility] Comment on above: Order Comment: Campu s: M Performed By: #### L 200.54013 #### [facility] [address] [place] [address] Calcium [Mass/Vol] 9.1 mg/dL Normal 8.5-10.5 [facility] Comment on above: Order Comment: Campu s: M Result Comment: NOTE NEW NORMAL RANGE DUE TO REAGENT CHANGE Performed By: #### L 200.19965 #### [facility] [address] [place] [address] Chloride [Moles/Vol] 109 mmol/L High 98-107 [facility] Comment on above: Order Comment: Campu s: M Performed By: #### L 200.82908 #### [facility] [address] [place] [address] CO2 [Moles/Vol] 22.0 mmol/L Normal 21-32 [facility] Comment on above: Order Comment: Campu s: M Performed By: #### L 200.87673 #### [facility] [address] [place] [address] Creatinine [Mass/Vol] 1.07 mg/dL High 0.510-0.95 0 [facility] Comment on above: Order Comment: Campu s: M Result Comment: Tiffany ents receiving either N-Acetylcysteine (NAC) or Metamizole prior to venipuncture, may have falsely depressed results. Performed By: #### L 200.99183 #### [facility] [address] [place] [address] Glucose [Mass/Vol] 172 mg/dL High 70-100 [facility] Comment on above: Order Comment: Campu s: M Result Comment: 70-1 00- Normal Fasting; 100-125 Impaired Fasting; greater than 126 on more than one result- Diabetes. ADA guidelines. Results may be falsely elevated after the administration of Sulfapyridine. Results may be falsely depressed after the administration of Sulfasalazine. Performed By: #### L 200.55560 #### [facility] [address] [place] [address] Potassium [Moles/Vol] 3.9 mmol/L Normal 3.5-5.1 [facility] Comment on above: Order Comment: Campu s: M Performed By: #### L 200.38609 #### [facility] [address] [place] [address] Sodium [Moles/Vol] 139 mmol/L Normal 136-145 [facility] Comment on above: Order Comment: Campu s: M Performed By: #### L 200.99796 #### [facility] [address] [place] [address] Urea nitrogen [Mass/Vol] 19 mg/dL Normal 7-26 [facility] Comment on above: Order Comment: Campu s: M Performed By: #### L 200.06044 #### [facility] [address] [place] [address] Urea nitrogen/Creatinine [Mass ratio] 18 mg/mg Normal 15-24 [facility] Comment on above: Order Comment: Campu s: M Performed By: #### L 200.97263 #### [facility] [address] [place], [place] [id number] CBCon 08-23-2020 Erythrocyte distribution width (RBC) [Ratio] 12.6 % Normal 11-14.5 [facility] Comment on above: Order Comment: Campu s: M Performed By: #### L 200.27513 #### [facility] [address] [place] [address] Hematocrit (Bld) [Volume fraction] 27.5 % Low 35.0-47.0 [facility] Comment on above: Order Comment: Campu s: M Performed By: #### L 200.61917 #### [facility] [address] [place] [address] Hemoglobin (Bld) [Mass/Vol] 8.9 g/dL Low 11.5-15.5 [facility] Comment on above: Order Comment: Campu s: M Performed By: #### L 200.76233 #### [facility] [address] [place] [address] MCHC (RBC) [Mass/Vol] 32.4 g/dL Normal 32.0-36.0 [facility] Comment on above: Order Comment: Campu s: M Performed By: #### L 200.23060 #### [facility] [address] [place] [address] MCV (RBC) [Entitic vol] 86.2 fL Normal 80.0-99.0 [facility] Comment on above: Order Comment: Campu s: M Performed By: #### L 200.40437 #### [facility] [address] [place] [address] Nucleated RBC/100 WBC (Bld) [Ratio] 0.0 % Normal Less than 1 [facility] Comment on above: Order Comment: Campu s: M Performed By: #### L 200.13679 #### [facility] [address] [place] [address] Platelet mean volume (Bld) [Entitic vol] 10.0 fL Normal 9.4-12.4 [facility] Comment on above: Order Comment: Campu s: M Performed By: #### L 200.77263 #### [facility] [address] [place] [address], [place] [id number] PLT 344 K/CU MM Normal 150-450 [facility] Comment on above: Order Comment: Campu s: M Performed By: #### L 200.63745 #### [facility] [address] [place] [address] RBC 3.19 M/CU MM Low 3.90-5.30 [facility] Comment on above: Order Comment: Campu s: M Performed By: #### L 200.77465 #### [facility] [address] [place] [address], [place] [id number] WBC 7.8 K/CUMM Normal 4.5-11.0 [facility] Comment on above: Order Comment: Campu s: M Performed By: #### L 200.46279 #### [facility] [address] [place] [address] CONS.Landy 08-23-2020 CONS.CARD [facility] Patient Name: MARIELLA RAMIREZ [address] [place] [address] Date of : [address] [place] [address] Unit Number: [id number] Consultation-Cardiology Patient Status: ADM Caitlin Attending Doctor: Melissa Gutierrez MD Service Date: 08/23/20 1448 History of Present Illness Referring Physician Adele Meade DO Consulted Provider Anibal Jones MD Source of Information Patient/Medical Records Reason for Consult Abnormal Nuclear Stress Test History of Present Illness This is a 50-year-old female with a past medical history of hypertension and diabetes mellitus. Patient [facility] by kathy for chest pressure and hyperglycemia. Patient notes she began having midsternal chest pressure while she was at work that radiated into her abdominal area. She notes that this chest pressure is associated with nausea and vomiting. She does admit that she had been out of her medications and unable to afford them for the past month. She notes she just started a new job a week ago and is awaiting insurance. Cardiology has been consulted to further evaluate the patient for an abnormal nuclear stress test. Past Medical/Surgical Hx Medical Records Reviewed Yes Past Medical History Summary Hypertension Diabetes mellitus Past Surgical History Summary None Family/Social History Family History MOTHER FATHER, ; Cause: Cancer. Social Hx Tobacco: Denies EtOH: Denies Recreational drug use: Denies Advance Directives Advance Directives Full Code Allergies/Home Medications Allergies Coded Allergies: LATEX (08/22/20) Home Medications glipIZIDE* (Glucotrol XL Tab*) 10 MG TAB.ER.24 10 MG PO QDAY.30AC, Ref 0 (Reported) Entered as Reported by ELIANA RAMIREZ on 08/22/20 1028 Last Action: Held on 08/22/20 1342 by ADELE MEADE Lisinopril/Hctz (Zestoretic 20-12.5 MG Tab) 1 EACH TABLET 1 EACH PO QDAY, Ref 0 ( Reported) Entered as Reported by ELIANA RAMIREZ on 08/22/20 1028 Last Action: Held on 08/22/20 1342 by ADELE MEADE metFORMIN HCL* (Glucophage XR 750MG Tab*) 750 MG TAB.SR 750 MG PO QDAYWM, Ref 0 ( Reported) STOP TAKING METFORMIN PRIOR TO ANY EXAMS USING IV IODINATED CONTRAST DYE (IV DYE) AND HOLD FOR 48 HOURS AFTER THE PROCEDURE Entered as Reported by ELIANA RAMIREZ on 08/22/20 1027 Last Action: Held on 08/22/20 1342 by ADELE MEADE Inpatient Medications Medications Current Sig/Delmy Start time Last Medication Dose Route Stop Time Status Admin Al Hydrox/Mg Hydrox/ 30 ML Q6HPRN PRN 08/22 1130 AC Simethicone PO (MAALOX (ALAMAG)PLUS ORAL LIQ) Atorvastatin Calcium 40 MG QHS 08/23 2200 AC (LIPITOR TAB) PO Benzocaine/Menthol 1 ANDERSON Q2HPRN PRN 08/22 1130 AC (CEPACOL LOZENGE) MM Bisacodyl 10 MG QDAYPRN PRN 08/22 1130 AC (DULCOLAX RECT) RC Carvedilol 6.25 MG BIDWM 08/22 1700 AC 08/23 (COREG TAB) PO 1135 Guaifenesin/ 10 ML Q4HPRN PRN 08/22 1130 AC Dextromethorphan PO (ROBITUSSIN-DM ORAL LIQ) Heparin Sodium 5,000 UNIT BID 08/22 2100 AC 08/23 (Porcine) SC 1137 (HEPARIN D.SYR) Hydralazine HCl 10 MG Q4HPRN PRN 08/22 1130 AC 08/22 (APRESOLINE VIAL) IV 1201 Hypromellose 1 GTT Q2HPRN PRN 08/22 1130 AC (ISOPTO TEARS 0.5% OU OPTH DROP) Insulin Glargine 10 UNITS QDAYINS 08/22 1400 AC 08/23 (LANTUS SOLOSTAR PEN) SC 1135 Insulin Human Lispro See Dose WMHS 08/22 1200 AC 08/23 (humaLOG/novoLOG PEN) Insts (1) SC 1143 Lisinopril 20 MG BID 08/22 2100 AC 08/23 (PRINIVIL/ZESTRIL PO 1137 TAB) Magnesium Hydroxide 30 ML K12OMMS PRN 08/22 1130 AC (MILK OF MAGNESIA PO ORAL LIQ) Melatonin 5 MG QHSPRN PRN 08/22 1130 AC (MELATONIN TAB) PO Morphine Sulfate 2 MG Q4HPRN PRN 08/22 1130 AC 08/22 (MORPHINE D.SYR) IV 1654 Ondansetron HCl 4 MG Q6HPRN PRN 08/22 1130 AC 08/22 (ZOFRAN VIAL) IV 1653 Dose Instructions: (1)Insulin Human Lispro (humaLOG/novoLOG PEN): 2-10 Units Review of Systems ROS: Other All 10 review of systems are negative unless otherwise noted above HPI Physical Exam Vital Signs Vital Signs (Last) Result Date Time Pulse Ox 99 08/23 1149 B/P 146/88 08/23 1149 Temp 98.1 08/23 1149 Pulse 92 08/23 1149 Resp 18 08/23 1149 Vital Signs (24hr) Date Temp Pulse Resp B/P B/P Mean Pulse Ox FiO2 08/22-08/23 97.7-98.6 88-114 18 104-149/69-88 95-100 Physical Examination Summary General: Patient is alert and oriented x3 and is in no acute respiratory distress Neck: Negative hepatojugular reflux or jugular venous distention, negative carotid bruit. Lungs: Diminished bilaterally right greater than the left Cardiac: Regular rhythm and rate, S1-S2 within normal limits, no murmurs, gallops were appreciated, no rubs. Abd (more content not included)... Normal [facility] Consultation-Cardio [facility]y [facility] IF AMER Greater than 60 Normal [facility] Comment on above: Order Comment: Campu s: M Performed By: #### L 500.08431, L500.84892, L500.75059 ####[facility] [id number] [place], [place] [address]Vh# [phone] IF non-AFR AMER 55 [facility] Comment on above: Order Comment: Campu s: M Performed By: #### L 500.40735, L500.06673, L500.15186 ####[facility] [id number] [place], [place] [address]Sg# [phone] GLUCOSE METERon 08-23-2020 Glucose [Mass/Vol] 167 mg/dL High 70-115 [facility] Glucose [Mass/Vol] 263 mg/dL High 70-115 [facility] Glucose [Mass/Vol] 224 mg/dL High 70-115 [facility] LIPIDon 08-23-2020 CHOL 142 MG/dL Normal 0-199 [facility] Comment on above: Order Comment: Campu s: M Performed By: #### L 500.11286, L500.57579, L500.18593 ####[facility] [id number] [place], [place] [address]Tg# [phone] Cholesterol in HDL [Mass/Vol] 52 mg/dL Normal GREATER THAN 40 [facility] Comment on above: Order Comment: Campu s: M Result Comment: Tiffany ents receiving Metamizole prior to venipuncture, may have falsely depressed results. Performed By: #### L 500.28582, L500.37266, L500.64366 ####[facility] [id number] [place], [place] [address]Fu# [phone] Cholesterol in LDL [Mass/Vol] 69 mg/dL Normal [facility] Comment on above: Order Comment: Samantha Gonzalez Result Comment: ___C HOLESTEROL/HDL RATIO RISK___ CHD RISK = Total CHOL LDL HDL (CHOL/HDL) Recommended <200 <130 >40 <3.4 Borderline 200-239 130-159 3.4-4.99 High >240 >160 >5.0 Performed By: #### L 500.74215, L500.18332, L500.23646 ####[facility] [id number] [place], [place] [address]Xv# [phone] Triglyceride [Mass/Vol] 101 mg/dL Normal 30-149 [facility] Comment on above: Order Comment: Samantha Gonzalez Result Comment: Tiffany ents receiving either N-Acetylcysteine (NAC) or Metamizole prior to venipuncture, may have falsely depressed results. Performed By: #### L 500.11534, L500.94250, L500.96589 ####[facility] [id number] [place], [place] [address]Gy# [phone] PROG [facility] 08-23-2020 PROG [facility] Patient Name: MARIELLA RAMIREZ [address] Date of : [address] [address] Unit Number: [id number] Progress Note-Hospitalist Patient Status: ADM Caitlin Attending Doctor: Melissa Gutierrez MD Service Date: 08/23/20 1253 Subjective S: (2 ROS minimum) Blood pressure and blood glucose better controlled. Denies nausea vomiting diarrhea chest pain shortness abdominal pain lightheadedness dizziness dysuria. No acute events reported overnight. Objective (ROS) Nursing Vitals Vital Signs (Last) Result Date Time Pulse Ox 99 08/23 1149 B/P 146/88 08/23 1149 Temp 98.1 08/23 1149 Pulse 92 08/23 1149 Resp 18 08/23 1149 Alert oriented x3 regular rate rhythm S1-S2 present Soft nontender abdomen bowel sounds present no guarding or any rigidity Clear lung sound to auscultation no wheezing no rales or rhonchi no use of accessory muscles No focal deficits No edema no cyanosis no clubbing Cranial nerves II to XII grossly intact Atraumatic normocephalic head trachea midline Assessment and Plan Conclusion 1. Hypertension 2. Hyperglycemia 3. Chest pain Hypertension -Coreg and lisinopril Uncontrolled diabetes mellitus -Lantus, sliding scale insulin -Consult endocrinology -Hemoglobin A1c of 11.1 Chest pain, abnormal troponin -Echocardiogram and stress test pending Hyperlipidemia -Lipid profile triglycerides 101 cholesterol 142 LDL 69 HDL 52 DC Disposition Plan . Disclaimer This dictation was created using voice recognition software. Phonetic and/or minor grammatical errors may exist. eSign Date and Time Adele Meade DO Verified/Reviewed by 08/23/20 1256 Normal [facility] Progress Note-Hospitalist Normal [facility] TROPONIN Ion 08-23-2020 TROPONIN I 42.3 pg/mL Critically high 0-34 [facility] Comment on above: Order Comment: Samantha s: Lisa Result Comment: Prev ious Critical within one week. Critical Result(s) verified at: 23:53:45 on 08/22/2020 by: Heather Trotter NOTE NEW NORMAL RANGE DUE TO REAGENT CHANGE This assay uses different antibodies than our current assay, and assays, even by the same scientific editor may recognize different regions of the antibody and cannot be used interchangeably. Expect results of this assay to run higher than the previous assay. Performed By: #### L 200.35427 #### [facility] [address] [place] [address]# [phone] CDLECHOon 08-22-2020 [facility] [id number] IN ECHOCARD ECHOCARDIOGRAM [address] [place] [address] Noninvasive Cardiac Diagnostics Adult Echocardiogram Report Name: MARIELLA RAMIREZ Study Date: 08/23/2020 09:07 AM BP: 104/69 mmHg Patient Location: [id number]: : 1970 Gender: Female Height: 67 in Age: 50 yrs Ethnicity: [facility] Weight: 168 lb Accession No. [id number] No. [id number] Reason For Study: ANGINA BSA: 1.9 m2 History: Chest Pain,Hypertension Interpretation Summary Ejection Fraction = 65-70%. There is mild concentric left ventricular hypertrophy. A full diastolic examination was done with clinical findings of Class I diastolic dysfunction. There is trace to mild mitral regurgitation. There is mild tricuspid regurgitation. Left Ventricle: The left ventricular size, thickness and function are normal. There is mild concentric left ventricular hypertrophy. Ejection Fraction = 65-70%. A full diastolic examination was done with clinical findings of Class I diastolic dysfunction. Left Atrium/Atrial Septum: The left atrial size is normal. Right Atrium: Right atrial size is normal. [facility] PATIENT NAME: MARIELLA RAMIREZ [address] [place] [address] Dr. [address] MEDICAL REC #: [id number] [place] [id number] ADMIT DATE: 08/22/20 DISCHARGE DATE: ATTENDING PHY: Melissa Gutierrez MD ECHOCARDIOGRAM REPORT Right Ventricle: The right ventricle is normal in size and function. Aortic Valve: Structurally normal aortic valve. Mitral Valve: The mitral valve is normal in structure and function. There is trace to mild mitral regurgitation. Tricuspid Valve: The tricuspid valve is normal in structure and function. There is mild tricuspid regurgitation. Pulmonic Valve: Structurally normal pulmonic valve. Arteries: The aortic root is normal size. Pericardium/Pleura: There is no pericardial effusion. MMode/2D Measurements and Calculations IVSd: 1.0 cm LVIDd: IVS/LVPW: EDV(cubed): IVSs: 1.4 cm 4.7 cm 1.2 103.2 ml LVIDs: FS: 38.2 % ESV(cubed): 2.9 cm EF(Teich): 24.4 ml LVPWd: 68.4 % EF(cubed): 0.82 cm 76.4 % LVPWs: % IVS thick: 1.6 cm 42.9 % % LVPW thick: 91.3 % LV mass(C)d: SV(Teich): MV Ao root diam: 145.0 grams 69.7 ml excursion: 2.8 cm LV mass(C)dI: SI(Teich): 1.6 cm Ao root area: MV E-F 77.2 grams/m2 37.1 ml/m2 slope: 6.1 cm2 LV mass(C)s: SV(cubed): 7.4 cm/sec ACS: 2.2 cm 151.9 grams 78.8 ml LA dimension: LV mass(C)sI: SI(cubed): 2.7 cm 80.9 grams/m2 42.0 ml/m2 LA/Ao: 0.99 EF(MOD-sp4):SI(MOD-sp4): LA ESV Index LVOT diam: 67.0 % 35.7 ml/m2 (A4C): [facility] PATIENT NAME: MARIELLA RAMIREZ0 [facility] Dr[facility] MEDICAL REC #: [id number] [place] [address] ADMIT DATE: 08/22/20 DISCHARGE DATE: ATTENDING PHY: Melissa Gutierrez MD ECHOCARDIOGRAM REPORT 2.2 cm 37.2 ml/m2 Time Measurements Aortic R-R: 0.68 sec Aortic HR: 87.7 BPM Doppler Measurements and Calculations MV E max hasmukh: MV max PG: MV P1/2t: Ao V2 max: 63.7 cm/sec 4.4 mmHg 60.1 msec 134.2 cm/sec MV A max hasmukh: MV mean PG: MVA(P1/2t):Ao max P.7 cm/sec 1.8 mmHg 3.7 cm2 7.2 mmHg MV E/A: 0.65 MVA(VTI): MV dec Ao max PG 3.4 cm2 time: (full): 0.12 sec 3.3 mmHg Ao mean P.9 mmHg Ao mean PG (full): 2.0 mmHg Ao V2 VTI: 21.8 cm ASA(I,A): 2.7 cm2 ASA(I,D): 2.7 cm2 ASA(V,A): 2.7 cm2 ASA(V,D): 2.7 cm2 LV V1 max: CO(Ao): PA max PG: TR max hasmukh: 99.2 cm/sec 11.7 l/min 3.9 mmHg 196.7 cm/sec LV V1 mean: CI(Ao): TR max P.2 cm/sec 15.5 mmHg LV V1 VTI: 6.2 l/min/m2 RVSP(TR): 16.1 cm SV(Ao): 25.5 mmHg 132.9 ml SI(Ao): 70.8 ml/m2 CO(LVOT): 5.2 l/min CI(LVOT): 2.8 l/min/m2 SI(LVOT): 31.8 ml/m2 [facility] PATIENT NAME: MARIELLA RAMIREZ [facility] Dr. [address] MEDICAL REC #: [id number] [place] [address] ADMIT DATE: 08/22/20 DISCHARGE DATE: ATTENDING PHY: Melissa Gutierrez MD ECHOCARDIOGRAM REPORT RAP systole: MV P1/2t- Lateral Medial E/E': 10.0 mmHg pr_phl: E/E': 11.9 11.9 60.1 msec Pediatric Measurements and Calculations Lat Peak E' Hasmukh: 5.4 cm/sec Med Peak E' Hasmukh: 5.4 cm/sec Reviewed/Verified By: Anibal Jones MD 08/23/2020 12:59 PM Ordering Physician: Adele Meade Referring Physician: AMPARO PCP GIVEN Performed By: 16 CC: Adele Meade [facility] PATIENT NAME: MARIELLA RAMIREZ [facility] Dr[facility] [address] MEDICAL REC #: [id number] [place] [address] ADMIT DATE: 08/22/20 DISCHARGE DATE: ATTENDING PHY: Melissa Gutierrez MD ECHOCARDIOGRAM REPORT Normal [facility] 08-22-2020 CARDIAC STRESS TEST REPORT Normal [facility] INTERPRETING PHYSICI AN: Anibal Jones MD ATTENDING PHYSICIAN: Melissa Gutierrez MD ORDERING/REFERRING PHYSICIAN: DATE(S) OF SERVICE: 08/23/2020 PROCEDURE: X-ray stress test. PATIENT RELATED INFORMATION: Age: 50 Height: ft in Weight: lbs. oz. Sex: Female Smokes: Cigars: #Cigs: Pipe: Inactive: Mod.Man.Labor: Heavy Work: Sedentary: Sedentary and Ex. Program: HR Since last meal: Activity: Fair REASON FOR PERFORMING TEST: Chest pain. MEDICATIONS: INTERPRETATION: EKG response to exercise: Blood pressure response: Rhythm: Conduction: [facility] PATIENT NAME: MARIELLA RAMIREZ [facility] Dr[facility] [address] MEDICAL REC #: [id number] [place] [address] ADMIT DATE: 08/24/20 DISCHARGE DATE: 08/25/20 ATTENDING PHY: Melissa Gutierrez MD CARDIAC STRESS TEST REPORT ST segment: Heart rate response: Fitness classification: Resting ECG: COMMENTS: Baseline ECG showed sinus rhythm with rate at 116. Patient exercised on standard William protocol for 6 minutes. Test was stopped secondary to achieving adequate heart rate and workload. The patient achieved 88% of maximum predicted heart rate. There was adequate workload achieved. Rate pressure product was 210. The patient completed 7 METs. During the exercise stress test, no evidence of dysrhythmias. No evidence of hypertensive or hypotensive response. There was noted [address] segment depression in inferolateral leads consistent with mildly positive ischemic changes on the EKG. IMPRESSION: 1. Fair exercise tolerance, functional class 1 to 2. 2. Negative for exercise-induced dysrhythmia. 3. Negative for exercise-induced hypertensive or hypotensive response. 4. Mildly positive for exercise-induced ischemic electrocardiogram changes. Nuclear images pending. [facility] PAT[facility] MEDICAL REC #: [id number] [place] [address] ADMIT DATE: 08/24/20 DISCHARGE DATE: 08/25/20 ATTENDING PHY: Melissa Gutierrez MD CARDIAC STRESS TEST REPORT MD JUAN CARLOS Angela/[id number] SSI File#: [id number] END OF DOCUMENT / CHANGE LOG FOLLOWS Last Edited By Cynthia. Signed By Anibal Jones MD #[facility] Anibal Jones MD #ANURAG on 08/28/2020 10:11 ET on 08/28/2020 10:11 ET Revision Number - 2 Verified/Reviewed by [facility] PATIENT NAME: MARIELLA RAMIREZ [facility] Dr[facility] [address] MEDICAL REC #: [id number] [place] [address] ADMIT DATE: 08/24/20 DISCHARGE DATE: 08/25/20 ATTENDING PHY: Melissa Gutierrez MD CARDIAC STRESS TEST REPORT Normal [facility] CDLSTRESS INTERPRETING PHYSICI AN: Noman Harris MD ATTENDING PHYSICIAN: Melissa Gutierrez MD ORDERING/REFERRING PHYSICIAN: Melissa Gutierrez MD DATE(S) OF SERVICE: 08/23/2020 PROCEDURE: Exercise myocardial perfusion scan. PATIENT RELATED INFORMATION: Age: Height: ft in Weight: lbs. oz. Sex: Smokes: Cigars: #Cigs: Pipe: Inactive: Mod.Man.Labor: Heavy Work: Sedentary: Sedentary and Ex. Program: HR Since last meal: REASON FOR PERFORMING TEST: Chest pain. MEDICATIONS: INTERPRETATION: EKG response to exercise: Blood pressure response: Rhythm: Conduction: ST segment: Heart rate response: [facility] PATIENT NAME: MARIELLA RAMIREZ [facility] Dr[facility] [address] MEDICAL REC #: [id number] [place] [address] ADMIT DATE: 08/24/20 DISCHARGE DATE: 08/25/20 ATTENDING PHY: Adele Meade DO CARDIAC STRESS TEST REPORT Fitness classification: Resting ECG: An exercise myocardial perfusion scan is performed. Please see the separate dictated stress electrocardiographic report. Technetium 99-m tetrofosmin radioactive isotope is utilized. Patient was injected with 16.7 mCi of the technetium agent for the rest portion of the study and 32.9 mCi for the stress portion. The immediate post stress images demonstrate normal left ventricular cavity size and pulmonary uptake. There is extensive breast shadowing present. Technetium 99-m tetrofosmin uptake is mildly reduced in the anterior wall and the lateral wall, extending from apex to base. Technetium uptake is intake in the remainder of the heart. On the rest study, there appears to be complete normalization of uptake throughout the myocardium. Gated SPECT study reveals normal contractility throughout the myocardium. Calculated ejection fraction is 55%. FINAL IMPRESSION: 1. Normal left ventricular cavity size and pulmonary uptake. Breast shadowing present. 2. Mild reversible anterolateral defect, representing mild areas of [facility] PATIENT NAME: MARIELLA RAMIREZ [facility] Dr[facility] [address] MEDICAL REC #: [id number] [place] [address] ADMIT DATE: 08/24/20 DISCHARGE DATE: 08/25/20 ATTENDING PHY: Adele Meade DO CARDIAC STRESS TEST REPORT ischemia. However, shifting breast attenuation artifact cannot be excluded. 3. Overall normal contractility with an ejection fraction of 55%. Noman Harris MD /[id number] SSI File#: [id number] CC: Melissa Gutierrez MD END OF DOCUMENT / CHANGE LOG FOLLOWS Last Edited By Elec. Signed By Noman Harris MD #IQBAM Noman Harris MD #IQBAM on 09/08/2020 18:53 ET on 09/08/2020 18:53 ET Revision Number - 2 Verified/Reviewed by [id number] [facility] PATIENT NAME: MARIELLA RAMIREZ [address] MEDICAL REC #: [id number] [place] [address] ADMIT DATE: 08/24/20 DISCHARGE DATE: 08/25/20 ATTENDING PHY: Adele Meade DO CARDIAC STRESS TEST REPORT Normal [facility] CT ABPEL DISSECTION W POSTPR Oon 08-22-2020 CT ABPEL DISSECTION W POSTPRO CT THOR DISSECTION W/POS PROC, CT ABPEL DISSECTION W POSTPRO Ordering Physician: Sherlyn Moreno 08/22/2020 11:[address] THORAX/ABDOMEN/PELVIS AORTIC DISSECTION PROTOCOL WITH/WITHOUT IV CONTRAST: Clinical Statement: Chest pain, abdominal pain. Chest, back, abdominal burning. Comparison: None available. TECHNIQUE: Contiguous transaxial 3.75 mm slices were obtained from the level of the thoracic inlet through the pelvis following the uneventful administration of 100 cc of Isovue-300 IV contrast. Contiguous slices without IV contrast were also acquired through the level of the aortic arch. Multiplanar axial, coronal, and sagittal reconstructions were reviewed on a separate workstation. FINDINGS: Thyroid is unremarkable. The esophagus is normal in course and caliber. The heart is normal in size without pericardial effusion. No coronary artery calcifications. The thoracic aorta is normal in course and caliber. There is no aneurysm or intimal flap to suggest dissection. No intramural hematoma is identified. The pulmonary arteries are normal in caliber. No pulmonary arterial filling defects are identified. No pathologically enlarged mediastinal, hilar or axillary lymph nodes. The trachea and mainstem bronchi are patent. There is no focal consolidation, pleural effusion or pneumothorax. No suspicious pulmonary nodules or masses. The abdominal aorta is normal in course and caliber without evidence of aneurysm or dissection. Liver is normal in size, contour and attenuation. No focal hepatic masses. Gallbladder is unremarkable. No intra or extrahepatic biliary dilatation. Spleen, pancreas and adrenal glands are unremarkable. Kidneys are symmetric without evidence of hydronephrosis or renal calculi. Ureters are normal course and caliber. Bladder is well distended without wall thickening or focal mass. Uterus is unremarkable. No adnexal masses identified. The stomach and duodenum are unremarkable. There is diastasis of the ventral wall musculature with a small fat-containing umbilical hernia. Small bowel protrudes into this region with a small air-fluid level but is otherwise unremarkable. Colon is normal in course and caliber. Appendix is unremarkable. No free pelvic fluid or evidence of pneumoperitoneum. No pathologically enlarged abdominal or pelvic lymph nodes. There are no aggressive osseous abnormalities. There are mild multilevel degenerative changes throughout the visualized spine. IMPRESSION: 1. No acute abnormality. 2. Diastasis of the ventral wall musculature with a small fat-containing umbilical hernia. Underlying small bowel protrudes into this region with a small air-fluid level but is otherwise unremarkable without obstruction. Dictated by [employer]: Joni Goncalves DO Reviewed and Signed by: Mercedes Parker MD ---- Electronic Signature on File ---- Signed By: Mercedes Parker MD [email or web address] Dictated: 08/22/2020 12:42 PM Signed: 08/22/2020 1:18 PM Reported By: MERCEDES PARKER M.D. Signed By: MERCEDES PARKER M.D. [facility] CT THOR DISSECTION W/POS PRO Con 08-22-2020 CT THOR DISSECTION W/POS PROC CT THOR DISSECTION W/POS PROC, CT ABPEL DISSECTION W POSTPRO Ordering Physician: Sherlyn Moreno 08/22/2020 11:[address] THORAX/ABDOMEN/PELVIS AORTIC DISSECTION PROTOCOL WITH/WITHOUT IV CONTRAST: Clinical Statement: Chest pain, abdominal pain. Chest, back, abdominal burning. Comparison: None available. TECHNIQUE: Contiguous transaxial 3.75 mm slices were obtained from the level of the thoracic inlet through the pelvis following the uneventful administration of 100 cc of Isovue-300 IV contrast. Contiguous slices without IV contrast were also acquired through the level of the aortic arch. Multiplanar axial, coronal, and sagittal reconstructions were reviewed on a separate workstation. FINDINGS: Thyroid is unremarkable. The esophagus is normal in course and caliber. The heart is normal in size without pericardial effusion. No coronary artery calcifications. The thoracic aorta is normal in course and caliber. There is no aneurysm or intimal flap to suggest dissection. No intramural hematoma is identified. The pulmonary arteries are normal in caliber. No pulmonary arterial filling defects are identified. No pathologically enlarged mediastinal, hilar or axillary lymph nodes. The trachea and mainstem bronchi are patent. There is no focal consolidation, pleural effusion or pneumothorax. No suspicious pulmonary nodules or masses. The abdominal aorta is normal in course and caliber without evidence of aneurysm or dissection. Liver is normal in size, contour and attenuation. No focal hepatic masses. Gallbladder is unremarkable. No intra or extrahepatic biliary dilatation. Spleen, pancreas and adrenal glands are unremarkable. Kidneys are symmetric without evidence of hydronephrosis or renal calculi. Ureters are normal course and caliber. Bladder is well distended without wall thickening or focal mass. Uterus is unremarkable. No adnexal masses identified. The stomach and duodenum are unremarkable. There is diastasis of the ventral wall musculature with a small fat-containing umbilical hernia. Small bowel protrudes into this region with a small air-fluid level but is otherwise unremarkable. Colon is normal in course and caliber. Appendix is unremarkable. No free pelvic fluid or evidence of pneumoperitoneum. No pathologically enlarged abdominal or pelvic lymph nodes. There are no aggressive osseous abnormalities. There are mild multilevel degenerative changes throughout the visualized spine. IMPRESSION: 1. No acute abnormality. 2. Diastasis of the ventral wall musculature with a small fat-containing umbilical hernia. Underlying small bowel protrudes into this region with a small air-fluid level but is otherwise unremarkable without obstruction. Dictated by [employer]: oJni Goncalves DO Reviewed and Signed by: Mercedes Parker MD ---- Electronic Signature on File ---- Signed By: Mercedes Parker MD [email or web address] Dictated: 08/22/2020 12:42 PM Signed: 08/22/2020 1:18 PM Reported By: MERCEDES PARKER M.D. Signed By: MERCEDES PARKER M.D. Normal [facility] EKGon 08-22-2020 Electrocardiogram Procedure Date and T lukas: 08/22/20 1134 Test Reason : RT Blood Pressure : / mmHG Vent. Rate : 107 BPM Atrial Rate : 107 BPM P-R Int : 174 ms QRS Dur : 074 ms QT Int : 360 ms P-R-T Axes : 050 004 073 degrees QTc Int : 480 ms Sinus tachycardia Otherwise normal ECG No previous ECGs available Confirmed by KEYSHA MEADE MD ([id number]) on 08/22/2020 4:24:40 PM Referred By: Sherlyn Moreno Confirmed By:KEYSHA MEADE MD Rosemarie DDandT: 08/22/20 1134 TDandT: [facility] PATIENT NAME: MARIELLA RAMIREZ [facility] Dr[facility] [address] MEDICAL REC #: [id number] [place] [id number] ADMIT DATE: 08/22/20 DISCHARGE DATE: ATTENDING PHY: Melissa Gutierrez MD ELECTROCARDIOGRAM REPORT CLB cc: [facility] PATIENT NAME: MARIELLA RAMIREZ [facility] Dr[facility] [address] MEDICAL REC #: [id number] [place] [address] ADMIT DATE: 08/22/20 DISCHARGE DATE: ATTENDING PHY: Melissa Gutierrez MD ELECTROCARDIOGRAM REPORT Normal [facility] GLUCOSE METERon 08-22-2020 Glucose [Mass/Vol] 199 mg/dL High 70-115 [facility] Glucose [Mass/Vol] 281 mg/dL High 70-115 [facility] Glucose [Mass/Vol] 392 mg/dL High 70-115 [facility] HCGon 08-22-2020 HCG SER RESULT Negative Normal NEGATIVE [facility] Comment on above: Order Comment: Samantha s: M Performed By: #### L 200.84121 #### [facility] [address] [place] [address] HGB A1C GLYCOHBon 08-22-2020 HbA1c (Bld) [Mass fraction] 11.1 % High 4.3-6.0 [facility] Comment on above: Order Comment: Samantha s: M Performed By: #### L 550.23868 #### [facility] [address] [place] [address] HP.[email or web address] 08-22-2020 Admission-H&P Normal [facility] HP.IMS.ADM [facility]: [facility] Date of : [address] [address] Unit Number: [id number] Admission-HandP Patient Status: ADM Caitlin Attending Doctor: Melissa Gutierrez MD Service Date: 08/22/20 1126 History of Present Illness Source of Information Patient Chief Complaint/Present Illness: Chest pressure Living Situation Home - Independent History of Present Illness Patient is a 50-year-old -Congolese female with a past medical history significant for hypertension and diabetes mellitus who was a transfer from [facility] for chest pressure, vomiting, hypertensive urgency, hyperglycemia. Patient states she went to work this morning and started having chest pressure around 5 AM, she called the squad, and the squad her blood sugar was noted to be 488, on arrival to [facility] her blood pressure was 192/103, she received clonidine, hydralazine, 6 units of regular insulin, Reglan, Zofran, 2 L of IV fluids. Patient's blood pressure after receiving clonidine and hydralazine was down into the 160 systolic, blood sugar was down to 336 after receiving regular insulin. Urinalysis showed trace ketones. Patient states she has been out of her medications and has not been able to afford them for around a month. States she just started a new job a week ago and is waiting for insurance. She reports midsternal chest pressure as well as diffuse abdominal pain which she rates both at a 10 out of 10, states she has not yet received anything for the pain, also reports nausea and vomiting. She denies fever, chills, shortness of breath, dizziness, or diarrhea. EKG at [facility] Showed sinus rhythm, sodium 135, white count 10.93, hemoglobin 10.4, hematocrit 31.8. Physician Attestation Statement of Attestation I confirm that I have evaluated the patient, reviewed the history and physical, medications, diagnostic results, physical exam, assessment and plan of care of the patient. Patient seen and evaluated in a separate encounter 50-year-old female, medical history of diabetes mellitus hypertension transferred from the medicine for chest pressure vomiting presents emergency hyperglycemia. Patient ran out of her medication has not been able to afford her medication for about a month. Hemoglobin A1c of 11. CT dissection negative. During my evaluation patient was asymptomatic. Alert oriented x 3 Regular rate rhythm S1-S2 present Clear lung sounds auscultation no wheezing rales rhonchi no use of accessory muscles No focal deficits Cranial nerves II to XII grossly intact No edema Soft nontender abdomen bowel sounds present no guarding or no rigidity Chest pain cycle troponin stress test echocardiogram ordered Uncontrolled diabetes mellitus Lantus sliding scale insulin Hypertensive urgency Coreg lisinopril. Hydralazine Past Medical/Surgical Hx Past Medical History Hypertension, diabetes mellitus Family/Social History Family Hx Other/Comment Reports mother is alive and healthy, father is from cancer Substances Denies use of: Alcohol, Tobacco, Recreational Drugs. 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 Full Code Allergies/Home Medications Allergies Coded Allergies: LATEX (08/22/20) Home Medications glipIZIDE* (Glucotrol XL Tab*) 10 MG TAB.ER.24 10 MG PO QDAY.30AC, Ref 0 (Reported) Entered as Reported by ELIANA RAMIREZ on 08/22/20 1028 Last Action: Held on 08/22/20 1342 by ADELE MEADE Lisinopril/Hctz (Zestoretic 20-12.5 MG Tab) 1 EACH TABLET 1 EACH PO QDAY, Ref 0 ( Reported) Entered as Reported by ELIANA RAMIREZ on 08/22/20 1028 Last Action: Held on 08/22/20 1342 by ADELE MEADE metFORMIN HCL* (Glucophage XR 750MG Tab*) 750 MG TAB.SR 750 MG PO QDAYWM, Ref 0 ( Reported) STOP TAKING METFORMIN PRIOR TO ANY EXAMS USING IV IODINATED CONTRAST DYE (IV DYE) AND HOLD FOR 48 HOURS AFTER THE PROCEDURE Entered as Reported by ELIANA RAMIREZ on 08/22/20 1027 Last Action: Held on 08/22/20 1342 by ADELE MEADE Inpatient Medications Medications Current Sig/Delmy Start time Last Medication Dose Route Stop Time Status Admin Al Hydrox/Mg Hydrox/ 30 ML Q6HPRN PRN 08/22 1130 AC Simethicone PO (MAALOX (ALAMAG)PLUS ORAL LIQ) Benzocaine/Menthol 1 ANDERSON Q2HPRN PRN 08/22 1130 AC (CEPACOL LOZENGE) MM Bisacodyl 10 MG QDAYPRN PRN 08/22 1130 AC (DULCOLAX RECT) RC Guaifenesin/ 10 ML Q4HPRN PRN 08/22 1130 AC Dextromethorphan PO (ROBITUSSIN-DM ORAL LIQ) Heparin Sodium 5,000 UNIT BID 08/22 2100 AC (Porcine) SC (HEPARIN D.SYR) Hydralazine HCl 10 MG Q4HPRN PRN 08/22 1130 AC (APRESOLINE VIAL) IV Hypromellose 1 GTT Q2HPRN PRN 08/22 1130 AC (ISOPTO TEARS 0.5% OU OPTH DROP) Insulin Human Lispro See Dose [facility] 08/22 1200 AC (humaLOG/novoLOG PE (more content not included)... Normal [facility] MAGNESIUMon 08-22-2020 Magnesium [Mass/Vol] 1.4 mg/dL Low 1.6-2.6 [facility] Comment on above: Order Comment: Samantha brooks: Lisa Performed By: #### L [id number] #### [facility] [address] [place] [address] TROPONIN Ion 08-22-2020 TROPONIN I 36.5 pg/mL Critically high 0-34 [facility] Comment on above: Order Comment: Samantha brooks: M Result Comment: Crit ical Result(s) Called at: 20:16:55 on 08/22/2020 by mkp. Called to and read back by: BLESSING VILLARREAL RN NOTE NEW NORMAL RANGE DUE TO REAGENT CHANGE This assay uses different antibodies than our current assay, and assays, even by the same scientific editor may recognize different regions of the antibody and cannot be used interchangeably. Expect results of this assay to run higher than the previous assay. Performed By: #### L [id number] #### [facility] [address] [place] [id number] TROPONIN I 16.3 pg/mL Normal 0-34 [facility] Comment on above: Order Comment: Samantha brooks: Lisa Result Comment: NOTE NEW NORMAL RANGE DUE TO REAGENT CHANGE This assay uses different antibodies than our current assay, and assays, even by the same scientific editor may recognize different regions of the antibody and cannot be used interchangeably. Expect results of this assay to run higher than the previous assay. Performed By: #### L [id number] #### [facility] [address] [place] [id number] Vital Signs Date Time Vital Sign Value Performing Clinician Facility 11-22-2024 15:40-0400 Body mass index (BMI) [Ratio] 24.05 kg/m2 Linda Lowery MD Work Phone: [place] [address]-08-2025 15:40-0400 Body temperature 97.9 [degF] Linda Lowery MD Work Phone: [facility] 11-22-2024 15:40-0400 Body weight 69.49 kg Linda Lowery MD Work Phone: [facility] 11-22-2024 15:40-0400 Diastolic blood pressure 72 mm[Hg] Linda Lowery MD Work Phone: [facility] 11-22-2024 15:40-0400 Heart rate 93 /min Linda Lowery MD Work Phone: [facility] 11-22-2024 15:40-0400 Respiratory rate 16 /min Linda Lowery MD Work Phone: [facility] 11-22-2024 15:40-0400 SaO2% (BldA) [Mass fraction] 96 % Linda Lowery MD Work Phone: [facility] 11-22-2024 15:40-0400 Systolic blood pressure 136 mm[Hg] Linda Lowery MD Work Phone: [facility] 11-22-2024 07:06-0400 Body height 170.[address] Gerber Pina DO Work Phone: [facility] 11-22-2024 07:06-0400 Body mass index (BMI) [Ratio] 23.8 kg/m2 Dr. Gerber Pina DO Work Phone: [facility] 11-22-2024 07:06-0400 Body weight 68.[address] Gerber Pina DO Work Phone: [facility] 11-22-2024 07:06-0400 Diastolic blood pressure 87 mm[Hg] Dr. Gerber Pina DO Work Phone: [facility] 11-22-2024 07:06-0400 Heart rate 88 /min Dr. Gerber Pina DO Work Phone: [facility] 11-22-2024 07:06-0400 Respiratory rate 18 /min Dr. Gerber Pina DO Work Phone: [facility] 11-22-2024 07:06-0400 SaO2% (BldA) [Mass fraction] 100 % Dr. Gerber Pina DO Work Phone: [facility] 11-22-2024 07:06-0400 Systolic blood pressure 118 mm[Hg] Dr. Gerber Pina DO Work Phone: [facility] 05-24-2024 13:35-0500 Body mass index (BMI) [Ratio] 24.8 kg/m2 Jamaica Mireles CAR WASH SUPERVISOR.CAT CRACKER OPERATOR Work Phone: [facility] 05-24-2024 13:35-0500 Body weight 71.67 kg Jamaica Mireles CAR WASH SUPERVISOR.CAT CRACKER OPERATOR Work Phone: [facility] 05-24-2024 13:35-0500 Diastolic blood pressure 70 mm[Hg] Jamaica Mireles CAR WASH SUPERVISOR.CAT CRACKER OPERATOR Work Phone: [facility] 05-24-2024 13:35-0500 Heart rate 98 /min Jamaica Mireles CAR WASH SUPERVISOR.CAT CRACKER OPERATOR Work Phone: [facility] 05-24-2024 13:35-0500 Respiratory rate 14 /min Jamaica Mireles CAR WASH SUPERVISOR.CAT CRACKER OPERATOR Work Phone: [facility] 05-24-2024 13:35-0500 SaO2% (BldA) [Mass fraction] 100 % Jamaica Mireles CAR WASH SUPERVISOR.CAT CRACKER OPERATOR Work Phone: [facility] 05-24-2024 13:35-0500 Systolic blood pressure 139 mm[Hg] Jamaica Mireles CAR WASH SUPERVISOR.CAT CRACKER OPERATOR Work Phone: [facility] 05-14-2024 06:32-0500 Body temperature 98.78 [degF] DR GEORGIANA ODEN MD [facility] 05-14-2024 06:32-0500 Diastolic Blood Pressure Non-Invasive 82 mm[Hg] DR GEORGIANA ODEN MD [address] [place] [id number] 05-14-2024 06:32-0500 Heart rate 95 /min DR GEORGIANA ODEN MD [address] [place] [id number] 05-14-2024 06:32-0500 Reason For Taking VItal Signs DR GEORGIANA ODEN MD [address] [place] [id number] 05-14-2024 06:32-0500 Respiratory rate 18 /min DR GEORGIANA ODEN MD [address] [place] [id number] 05-14-2024 06:32-0500 Systolic Blood Pressure Non-Invasive 124 mm[Hg] DR GEORGIANA ODEN MD [address] [place] [address] 05-14-2024 03:30-0500 Body temperature 98.42 [degF] DR GEORGIANA ODEN MD [address] [place] [id number] 05-14-2024 03:30-0500 Diastolic Blood Pressure Non-Invasive 92 mm[Hg] DR GEORGIANA ODEN MD [address] [place] [address] 05-14-2024 03:30-0500 Heart rate 98 /min DR GEORGIANA ODEN MD [address] [place] [id number] 05-14-2024 03:30-0500 Reason For Taking VItal Signs DR GEORGIANA ODEN MD [address] [place] [id number] 05-14-2024 03:30-0500 Respiratory rate 18 /min DR GEORGIANA ODEN MD [address] [place] [id number] 05-14-2024 03:30-0500 Systolic Blood Pressure Non-Invasive 144 mm[Hg] DR GEORGIANA ODEN MD [address] [place] [address] 05-13-2024 23:40-0500 Body temperature 98.6 [degF] DR GEORGIANA ODEN MD [address] [place] [address] 05-13-2024 23:40-0500 Diastolic Blood Pressure Non-Invasive 67 mm[Hg] DR GEORGIANA ODEN MD [address] [place] [address] 05-13-2024 23:40-0500 Heart rate 95 /min DR GEORGIANA ODEN MD [address] [place] [address] 05-13-2024 23:40-0500 Reason For Taking VItal Signs DR GEORGIANA ODEN MD [address] [place] [address] 05-13-2024 23:40-0500 Respiratory rate 18 /min DR GEORGIANA ODEN MD [address] [place] [address] 05-13-2024 23:40-0500 Systolic Blood Pressure Non-Invasive 109 mm[Hg] DR GEORGIANA ODEN MD [address] 05-13-2024 11:47-0500 Heart rate 90 /min DR GEORGIANA ODEN MD [address] [place] [id number] 05-13-2024 06:24-0500 Blood Pressure Cuff Size DR GEORGIANA ODEN MD [address] [place] [address] 05-13-2024 06:24-[address] GEORGIANA ODEN MD [address] 05-13-2024 06:24-[address] GEORGIANA ODEN MD [address] [place] [address] 05-13-2024 06:24-0500 Heart rate 94 /min DR GEORGIANA ODEN MD [address] 05-13-2024 06:24-0500 Mean blood pressure 89 mm[Hg] DR GEORGIANA ODEN MD [address] [place] [address] 05-13-2024 03:29-0500 Blood Pressure Cuff Size DR GEORGIANA ODEN MD [address] [place] [address] 05-13-2024 03:29-[address] GEORGIANA ODEN MD [address] [place] [id number] 05-13-2024 03:29-[address] GEORGIANA ODEN MD [address] [place] [address] 05-12-2024 22:57-0500 Blood Pressure Cuff Size DR GEORGIANA ODEN MD [facility] 05-12-2024 22:57-[address] GEORGIANA ODEN MD [address] [place] [address] 05-12-2024 22:57-[address] GEORGIANA ODEN MD [address] [place] [address] 05-12-2024 08:08-0500 Heart rate 95 /min DR GEORGIANA ODEN MD [address] [place] [address] 05-11-2024 05:34-0500 Body weight 80.[address] GEORGIANA ODEN MD [address] 05-10-2024 04:14-0500 Body height 170.[address] GEORGIANA ODEN MD [address] [place] [address] 05-10-2024 04:14-0500 Body weight 80.[address] GEOGRIANA ODEN MD [address] [place] [address] 05-10-2024 04:14-0500 Body weight 27.89 kg/m2 DR GEORGIANA ODEN MD [address] [place] [address] 05-10-2024 02:52-0500 Heart rate 99 /min DR GEORGIANA ODEN MD [address] [place] [address] 05-09-2024 18:44-0500 Body temperature 98.78 [degF] DR GEORGIANA ODEN MD [address] [place] [address] 05-09-2024 18:44-0500 Body weight 80.[address] GEORGIANA ODEN MD [address] [place] [address] 05-02-2024 08:02-0500 Body mass index (BMI) [Ratio] 24.81 kg/m2 Jamaica Mireles APRN.CAT CRACKER OPERATOR Work Phone: [facility] 05-02-2024 08:02-0500 Body weight 71.7 kg Jamaica Mireles APRN.CAT CRACKER OPERATOR Work Phone: [facility] 05-02-2024 08:02-0500 Diastolic blood pressure 90 mm[Hg] Jamaica Mireles CAR WASH SUPERVISOR.CAT CRACKER OPERATOR Work Phone: [facility] 05-02-2024 08:02-0500 Heart rate 96 /min Jamaica Mireles CAR WASH SUPERVISOR.CAT CRACKER OPERATOR Work Phone: [facility] 05-02-2024 08:02-0500 Respiratory rate 14 /min Jamaica Mireles CAR WASH SUPERVISOR.CAT CRACKER OPERATOR Work Phone: [facility] 05-02-2024 08:02-0500 SaO2% (BldA) [Mass fraction] 100 % Jamaica Mireles CAR WASH SUPERVISOR.CAT CRACKER OPERATOR Work Phone: [facility] 05-02-2024 08:02-0500 Systolic blood pressure 162 mm[Hg] Jamaica Mireles CAR WASH SUPERVISOR.CAT CRACKER OPERATOR Work Phone: [facility] 05-01-2024 17:14-0500 Body mass index (BMI) [Ratio] 25.26 kg/m2 Hermilo Trotter MD Work Phone: [facility] 05-01-2024 17:14-0500 Body temperature 98.29 [degF] Hermilo Trotter MD Work Phone: [facility] 05-01-2024 17:14-0500 Body weight 73 kg Hermilo Trotter MD Work Phone: [facility] 05-01-2024 17:14-0500 Diastolic blood pressure 90 mm[Hg] Hermilo Trotter MD Work Phone: [facility] 05-01-2024 17:14-0500 Heart rate 104 /min Hermilo Trotter MD Work Phone: [facility] 05-01-2024 17:14-0500 Respiratory rate 16 /min Hermilo Trotter MD Work Phone: [facility] 05-01-2024 17:14-0500 SaO2% (BldA) [Mass fraction] 99 % Hermilo Trotter MD Work Phone: [facility] 05-01-2024 17:14-0500 Systolic blood pressure 154 mm[Hg] Hermilo Trotter MD Work Phone: [facility] 11-11-2023 10:41-0400 Blood Pressure Cuff Size CHRIS EVANS MD [address] [place] [address] 11-11-2023 10:41-0400 Blood Pressure Location CHRIS EVANS MD [address] [place] [address] 11-11-2023 10:41-0400 Blood Pressure Method CHRIS EVANS MD [address] [place] [address] 11-11-2023 10:41-0400 Body temperature 98.42 [degF] CHRIS EVANS MD [address] 11-11-2023 10:41-0400 Diastolic Blood Pressure Non-Invasive 95 mm[Hg] CHRIS EVANS MD [address] 11-11-2023 10:41-0400 Heart rate 75 /min CHRIS EVANS MD [address] 11-11-2023 10:41-0400 Respiratory rate 17 /min CHRIS EVANS MD [address] 11-11-2023 10:41-0400 Systolic Blood Pressure Non-Invasive 180 mm[Hg] CHRIS EVANS MD [address] 11-11-2023 09:06-0400 Heart rate 80 /min CHRIS EVANS MD [address] 11-11-2023 08:30-0400 Diastolic Blood Pressure Non-Invasive 89 mm[Hg] CHRIS EVANS MD [address] [place] [address] 11-11-2023 08:30-0400 Heart rate 91 /min CHRIS EVANS MD [address] [place] [address] 11-11-2023 08:30-0400 Mean blood pressure 100 mm[Hg] CHRIS EVANS MD [address] 11-11-2023 08:30-0400 Respiratory rate 16 /min CHRIS EVANS MD [address] [place] [address] 11-11-2023 08:30-0400 Systolic Blood Pressure Non-Invasive 130 mm[Hg] CHRIS EVANS MD [address] 11-11-2023 07:20-0400 Blood Pressure Cuff Size CHRIS EVANS MD [address] 11-11-2023 07:20-0400 Blood Pressure Location CHRIS EVANS MD [address] 11-11-2023 07:20-0400 Blood Pressure Method CHRIS EVANS MD [address] 11-11-2023 07:20-0400 Diastolic Blood Pressure Non-Invasive 88 mm[Hg] CHRIS EVANS MD [address] [place] [address] 11-11-2023 07:20-0400 Heart rate 67 /min CHRIS EVANS MD [address] 11-11-2023 07:20-0400 Reason For Taking VItal Signs CHRIS EVANS MD [address] 11-11-2023 07:20-0400 Respiratory rate 16 /min CHRIS EVANS MD [address] 11-11-2023 07:20-0400 Systolic Blood Pressure Non-Invasive 172 mm[Hg] CHRIS EVANS MD [address] [place] [address] 11-11-2023 02:48-0400 Blood Pressure Cuff Size CHRIS EVANS MD [address] [place] [address] 11-11-2023 02:48-0400 Blood Pressure Location CHRIS EVANS MD [address] [place] [address] 11-11-2023 02:48-0400 Blood Pressure Method CHRIS EVANS MD [address] [place] [address] 11-11-2023 02:48-0400 Body temperature 98.24 [degF] CHRIS EVANS MD [facility] 11-11-2023 02:48-0400 Reason For Taking VItal Signs CHRIS EVANS MD [address] [place] [address] 11-10-2023 23:18-0400 Body temperature 98.78 [degF] CHRIS EVANS MD [address] [place] [address] 11-10-2023 23:18-0400 Heart rate 74 /min CHRIS EVANS MD [address] [place] [address] 11-10-2023 23:18-0400 Reason For Taking VItal Signs CHRIS EVANS MD [address] [place] [address] 11-10-2023 20:15-0400 Heart rate 89 /min CHRIS EVANS MD [address] [place] [address] 11-10-2023 20:01-0400 Body height 167.6 cm CHRIS EVANS MD [address] [place] [address] 11-10-2023 20:01-0400 Body weight 63.3 kg CHRIS EVANS MD [address] [place] [address] 11-10-2023 20:01-0400 Body weight 22.53 kg/m2 CHRIS EVANS MD [address] [place] [address] 11-10-2023 18:40-0400 Heart rate 82 /min CHRIS EVANS MD [address] [place] [address] 11-10-2023 09:03-0400 Heart rate 85 /min CHRIS EVANS MD [address] [place] [address] 11-09-2023 15:36-0400 Heart rate 101 /min CHRIS EVANS MD [address] [place] [address] 12-23-2022 07:26-0400 Body height 170 cm Jamaica Mireles APRN.CNP Work Phone: [facility] 12-23-2022 07:26-0400 Body weight 72.85 kg Jamaica Mireles CAR WASH SUPERVISOR.CAT CRACKER OPERATOR Work Phone: [facility] 12-23-2022 07:26-0400 Diastolic blood pressure 78 mm[Hg] Jamaica Mireles CAR WASH SUPERVISOR.CAT CRACKER OPERATOR Work Phone: [facility] 12-23-2022 07:26-0400 Heart rate 62 /min Jamaica Mireles CAR WASH SUPERVISOR.CAT CRACKER OPERATOR Work Phone: [facility] 12-23-2022 07:26-0400 Respiratory rate 12 /min Jamaica Mireles CAR WASH SUPERVISOR.CAT CRACKER OPERATOR Work Phone: [facility] 12-23-2022 07:26-0400 Systolic blood pressure 138 mm[Hg] Jamaica Mireles CAR WASH SUPERVISOR.CAT CRACKER OPERATOR Work Phone: [facility] 09-16-2022 09:35-0400 Body temperature 97.11 [degF] Neli Praisler-Wood CAR WASH SUPERVISOR.CAT CRACKER OPERATOR Work Phone: [facility] 09-16-2022 09:35-0400 Body weight 74.12 kg Nlei Praisler-Wood CAR WASH SUPERVISOR.CAT CRACKER OPERATOR Work Phone: [facility] 09-16-2022 09:35-0400 Diastolic blood pressure 84 mm[Hg] Neli Praisler-Wood CAR WASH SUPERVISOR.CAT CRACKER OPERATOR Work Phone: [facility] 09-16-2022 09:35-0400 Heart rate 71 /min Neli Praisler-Wood CAR WASH SUPERVISOR.CAT CRACKER OPERATOR Work Phone: [facility] 09-16-2022 09:35-0400 Respiratory rate 18 /min Neli Praisler-Wood CAR WASH SUPERVISOR.CAT CRACKER OPERATOR Work Phone: [facility] 09-16-2022 09:35-0400 SaO2% (BldA) [Mass fraction] 99 % Neli Praisler-Wood CAR WASH SUPERVISOR.CAT CRACKER OPERATOR Work Phone: [facility] 09-16-2022 09:35-0400 Systolic blood pressure 138 mm[Hg] Neli Praisler-Wood CAR WASH SUPERVISOR.CAT CRACKER OPERATOR Work Phone: [facility] 08-25-2022 18:54-0400 Body weight 65.32 kg Lindsey Kushal CAR WASH SUPERVISOR.CAT CRACKER OPERATOR Work Phone: [facility] 08-25-2022 18:54-0400 Diastolic blood pressure 78 mm[Hg] Lindsey Fatima CAR WASH SUPERVISOR.CAT CRACKER OPERATOR Work Phone: [facility] 08-25-2022 18:54-0400 Heart rate 80 /min Lindsey Kushal CAR WASH SUPERVISOR.CAT CRACKER OPERATOR Work Phone: [facility] 08-25-2022 18:54-0400 Respiratory rate 14 /min Lindsey Fatima CAR WASH SUPERVISOR.CAT CRACKER OPERATOR Work Phone: [facility] 08-25-2022 18:54-0400 Systolic blood pressure 140 mm[Hg] Lindsey Fatima CAR WASH SUPERVISOR.CAT CRACKER OPERATOR Work Phone: [facility] 01-06-2022 09:18-0400 Body weight 70.31 kg Ariadna Ivey MD Work Phone: [facility] 01-06-2022 09:18-0400 Diastolic blood pressure 70 mm[Hg] Ariadna Ivey MD Work Phone: [facility] 01-06-2022 09:18-0400 Systolic blood pressure 120 mm[Hg] Ariadna Ivey MD Work Phone: [facility] 01-05-2022 10:00-0400 Body weight 72.12 kg Jamaica Marsh CAR WASH SUPERVISOR.CAT CRACKER OPERATOR Work Phone: [facility] 01-05-2022 10:00-0400 Diastolic blood pressure 70 mm[Hg] Jamaica Zurjakobck CAR WASH SUPERVISOR.CAT CRACKER OPERATOR Work Phone: [facility] 01-05-2022 10:00-0400 Heart rate 82 /min Jamaica Maximo CAR WASH SUPERVISOR.CAT CRACKER OPERATOR Work Phone: [facility] 01-05-2022 10:00-0400 Respiratory rate 18 /min Jamaica Zurawick CAR WASH SUPERVISOR.CAT CRACKER OPERATOR Work Phone: [facility] 01-05-2022 10:00-0400 SaO2% (BldA) [Mass fraction] 98 % Jamaica Zurawick CAR WASH SUPERVISOR.CAT CRACKER OPERATOR Work Phone: [facility] 01-05-2022 10:00-0400 Systolic blood pressure 122 mm[Hg] Jamaica Zurawick CAR WASH SUPERVISOR.CAT CRACKER OPERATOR Work Phone: [facility] 09-10-2021 08:50-0400 Body weight 73.94 kg Cecy Keyur CAR WASH SUPERVISOR.CAT CRACKER OPERATOR Work Phone: [facility] 09-10-2021 08:50-0400 Diastolic blood pressure 82 mm[Hg] Cecy Keyur CAR WASH SUPERVISOR.CAT CRACKER OPERATOR Work Phone: [facility] 09-10-2021 08:50-0400 Heart rate 80 /min Cecy Keyur CAR WASH SUPERVISOR.CAT CRACKER OPERATOR Work Phone: [facility] 09-10-2021 08:50-0400 Respiratory rate 16 /min Cecy Keyur CAR WASH SUPERVISOR.CAT CRACKER OPERATOR Work Phone: [facility] 09-10-2021 08:50-0400 SaO2% (BldA) [Mass fraction] 97 % Cecy Keyur CAR WASH SUPERVISOR.CAT CRACKER OPERATOR Work Phone: [facility] 09-10-2021 08:50-0400 Systolic blood pressure 120 mm[Hg] Cecy Keyur CAR WASH SUPERVISOR.CAT CRACKER OPERATOR Work Phone: [facility] Encounters Encounter Date Encounter Type Care Provider Facility Start: 12-11-2024 End: 12-11-2024 Telephone encounter Obed Hernandez [facility] Work Phone: [facility] Comment on above: Missed Appointment ( Primary care reschedule) Start: 11-22-2024 End: 11-22-2024 ambulatory GERBER PINA Facility:[facility] Start: 11-22-2024 End: 11-22-[address] 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 Gerber Pina DO Work Phone: -[facility] Start: 11-22-2024 End: 11-22-2024 ambulatory Nathan Nazario Facility:[facility] Start: 10-28-2024 End: 10-28-2024 Telephone encounter Obed Hernandez [facility] Work Phone: [facility] Comment on above: Medication Question (Zeynep Mejía) Start: 10-21-2024 End: 10-21-2024 ambulatory GEBRER PINA Facility:[facility] Start: 10-21-2024 End: 10-21-2024 Patient encounter procedure Obed Hernandez [facility] Work Phone: [facility] Comment on above: Type 2 diabetes marty itus without complication, with long-term current use of insulin (HCC) (Primary Dx) Start: 10-21-2024 End: 10-21-2024 Telemedicine consultation with patient Obed Hernandez [facility] Work Phone: [facility] Start: 10-08-2024 End: 11-08-2024 ambulatory Gerber Pina DO Work Phone: [facility] Start: 10-07-2024 End: 10-07-2024 ambulatory GERBER PINA Facility:[facility] Start: 10-07-2024 End: 10-08-2024 Patient encounter procedure Obed Hernandez [facility] Work Phone: [facility] Comment on above: 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, with long-term current use of insulin (HCC) (Primary Dx); Medication management Refill Request Start: 10-07-2024 End: 10-07-2024 Telemedicine consultation with patient Obed Hernandez [facility] Work Phone: [facility] Start: 09-19-2024 End: 09-19-2024 Refill Gerber Pina DO Work Phone: [facility] Comment on above: Opened In Error Start: 09-18-2024 End: 10-03-2024 Telephone encounter Gerber Pina DO Work Phone: [facility] Comment on above: Patient Question (No insurance and unsure how she can get medical help/); Medication Request; Social Work Services; No show Appointments. Start: 08-05-2024 End: 08-05-2024 Telephone encounter Obed Hernandez [facility] Work Phone: [facility] Start: 07-31-2024 End: 07-31-2024 Follow-up encounter Jamaica Mireles APRN.CNP Work Phone: [facility] Comment on above: Results Start: 07-30-2024 End: 08-07-2024 Telephone encounter Gerber Pina DO Work Phone: [facility] [place] Start: 07-29-2024 End: 07-29-2024 ambulatory JAMAICA MIRELES Facility:[facility] Start: 07-25-2024 End: 08-26-2024 Telephone encounter Gerber Pina DO Work Phone: Family [facility] [place] Comment on above: Patient Question Start: 07-01-2024 End: 07-23-2024 Telephone encounter Gerber Pina DO Work Phone: [facility] [place] Start: 06-13-2024 End: 06-13-2024 Telephone encounter Gerber Pina DO Work Phone: [facility] [place] Comment on above: Medication Problem Start: 06-12-2024 End: 06-12-2024 Refill Gerber Pina DO Work Phone: Family [facility] Comment on above: Refill Request Start: 05-28-2024 End: 06-14-2024 Telephone encounter Gerber Kris Yovani DO Work Phone: Internal Medicine [place] Comment on above: Insurance Authorizat ion Start: 05-27-2024 End: 05-27-2024 Telephone encounter Pharmacist [facility] Comment on above: New Primary Care Pha rmacy Start: 05-24-2024 End: 05-24-2024 Office outpatient visit 40 minutes Jamaica Mireles CAR WASH SUPERVISOR.CAT CRACKER OPERATOR Work Phone: [facility] Comment on above: Anemia, unspecified type (Primary Dx); Encounter for screening examination for other mental health and behavioral disorders; Mixed hyperlipidemia; Bilateral leg edema; Type 2 diabetes mellitus without complication, with long-term current use of insulin (HCC); Congestive heart failure, unspecified HF chronicity, unspecified heart failure type (HCC); Noncompliance with medication regimen; Type 2 diabetes mellitus with other specified complication, with long-term current use of insulin (HCC) Start: 05-24-2024 End: 05-24-2024 Refill Jamaica Mireles APRN.CAT CRACKER OPERATOR Work Phone: [facility] Comment on above: Refill Request Start: 05-09-2024 Emergency department patient visit DEANA BANDA MD Facility:A Start: 05-09-2024 End: 05-14-2024 Evaluation and management of inpatient DR GEORGIANA ODEN MD [facility] Start: 05-04-2024 ambulatory Rony Friend Facility :[facility] Start: 05-03-2024 ambulatory [facility] Friend Facility :[facility] Start: 05-03-2024 End: 05-07-2024 Evaluation and management of inpatient Taryn Lynchtrudi Facility:[facility] Start: 05-03-2024 End: 05-03-2024 Telephone encounter [place] Mireles APRN.CAT CRACKER OPERATOR Work Phone: [facility] Comment on above: Results release of records o [facility] Start: 05-02-2024 End: 05-03-2024 Telephone encounter Moriah Vásquez MD Work Phone: Geriatrics Start: 05-02-2024 End: 05-02-2024 ambulatory JAMAICA MIRELES Facility:[facility] Start: 05-02-2024 End: 05-02-2024 ambulatory JAMAICA MIRELES Facility:[facility] Start: 05-02-2024 End: 05-02-2024 Office outpatient visit 25 minutes Jamaica Mireles CAR WASH SUPERVISOR.CAT CRACKER OPERATOR Work Phone: [facility] Comment on above: Bilateral leg edema (Primary Dx); Essential hypertension; Type 2 diabetes mellitus without complication, with long-term current use of insulin (HCC); Mixed hyperlipidemia Start: 05-01-2024 End: 05-01-2024 Subsequent hospital visit by physician [facility] Work Phone: Radiology Comment on above: SOB (shortness of br eath) [R06.02] Start: 05-01-2024 End: 05-01-2024 ambulatory GERBER PINA Facility:[facility] Start: 05-01-2024 End: 05-01-2024 Office outpatient visit 25 minutes Hermilo Trotter MD Work Phone: [facility] Comment on above: SOB (shortness of br eath) (Primary Dx); Bilateral leg edema; Essential hypertension; Polyuria; Type 2 diabetes mellitus with both eyes affected by mild nonproliferative retinopathy without macular edema, with long-term current use of insulin (HCC); Noncompliance with medication regimen Start: 02-02-2024 End: 02-06-2024 Telephone encounter Gerber Pina DO Work Phone: [facility] Comment on above: Medication Request Start: 11-09-2023 End: 11-11-2023 Evaluation and management of inpatient CHRIS EVANS MD [facility] Start: 11-08-2023 ambulatory Gerber delgado DO Work Phone: Internal Medicine [facility] Start: 05-25-2023 Telephone encounter Gerber ramirez DO Work Phone: [facility] [place] Comment on above: Medication Problem; Dose Clarification Start: 05-22-2023 Refill Gerber delgado DO Work Phone: [facility] Comment on above: Refill Request Start: 05-07-2023 End: 05-07-2023 Emergency department patient visit PATIENT UNSURE PHYSICIAN Facility:A Start: 02-06-2023 Refill Gerber delgado DO Work Phone: [facility] Comment on above: Refill Request Start: 12-23-2022 Telephone encounter Gerber ramirez DO Work Phone: [facility] Comment on above: Patient Update Start: 12-23-2022 End: 12-23-2022 Patient encounter procedure Jamaica Mireles CAR WASH SUPERVISOR.CAT CRACKER OPERATOR Work Phone: [facility] [place] Comment on above: Type 2 diabetes marty itus without complication, with long-term current use of insulin (HCC) (Primary Dx); Encounter for immunization; Essential hypertension; Mixed hyperlipidemia; Overweight (BMI 25.0-29.9); Wellness examination; Callus of hand Start: 12-23-2022 End: 12-23-2022 Patient encounter status Jamaica Mireles CAR WASH SUPERVISOR.CAT CRACKER OPERATOR Work Phone: [facility] Work Phone: Start: 12-20-2022 Telephone encounter Gerber ramirez DO Work Phone: [facility] [place] Comment on above: Patient Question Start: 10-04-2022 Refill Gerber delgado DO Work Phone: [facility] [place] Comment on above: Refill Request Medication Question Start: 10-03-2022 Telephone encounter Cecy Mckay CAR WASH SUPERVISOR.CAT CRACKER OPERATOR Work Phone: [facility] [place] Comment on above: Patient Update Start: 09-16-2022 End: 09-16-2022 Patient encounter procedure Neli Parker CAR WASH SUPERVISOR.CAT CRACKER OPERATOR Work Phone: [facility] Comment on above: Visit for suture rem oval (Primary Dx) Start: 08-25-2022 End: 08-25-2022 Patient encounter procedure Lindsey Fatima CAR WASH SUPERVISOR.[facility] Work Phone: [facility] Comment on above: Type 2 diabetes marty itus without complication, with long-term current use of insulin (HCC) (Primary Dx) Start: 06-28-2022 Refill Jamaicaarlen Mireles CAR WASH SUPERVISOR.[facility] Work Phone: [facility] Comment on above: Refill Request Start: 05-22-2022 Refill Jamaica Chi CAR WASH SUPERVISOR.[facility] Work Phone: [facility] [place] Comment on above: Refill Request Start: 05-16-2022 Refill Cecy merlos CAR WASH SUPERVISOR.[facility] Work Phone: [facility] Comment on above: Refill Request Start: 2022 Refill Gerber Lopes son DO Work Phone: [facility] Comment on above: Refill Request Start: 03-20-2022 Refill Cecy merlos CAR WASH SUPERVISOR.[facility] Work Phone: [facility] Comment on above: Refill Request Start: 03-18-2022 Refill Cecy merlos CAR WASH SUPERVISOR.[facility] Work Phone: [facility] Comment on above: Refill Request Start: 03-07-2022 Refill Jamaica valenzuela CAR WASH SUPERVISOR.[facility] Work Phone: [facility] Comment on above: Refill Request Start: 01-27-2022 Refill Gerber Lopes son DO Work Phone: [facility] Comment on above: Refill Request Start: 01-06-2022 Telephone encounter Jamaica goodman CAR WASH SUPERVISOR.[facility] Work Phone: [facility] Comment on above: Results Start: 01-06-2022 End: 01-06-2022 Patient encounter procedure Ariadna Ivey MD Work Phone: OB/Gynecology Comment on above: Abnormal uterine ble eding (Primary Dx); Perimenopausal; Screening for cervical cancer; Encounter for screening for human papillomavirus (HPV) Start: 01-06-2022 End: 01-06-2022 Subsequent hospital visit by physician [facility] Work Phone: Radiology Comment on above: Abnormal uterine ble eding [N93.9] Start: 01-05-2022 End: 01-05-2022 Patient encounter procedure Jamaica Marsh APRN.CAT CRACKER OPERATOR Work Phone: [facility] [place] Comment on above: Abnormal uterine ble eding (Primary Dx); Infertility counseling Start: 12-24-2021 Telephone encounter Gerber sanchezbarb DO Work Phone: [facility] [place] Comment on above: Patient Question Start: 12-22-2021 ambulatory Gerber Lopes son DO Work Phone: Internal Medicine [facility] [place] Start: 10-25-2021 Refill Gerber delgado DO Work Phone: [facility] [place] Comment on above: Refill Request Medication Question Start: 10-25-2021 Refill Jamaica valenzuela CAR WASH SUPERVISOR.CAT CRACKER OPERATOR Work Phone: Family [facility] Comment on above: Refill Request Start: 09-23-2021 Telephone encounter Cecy Mckay APRN.TIFFANIE Work Phone: [facility] [place] Comment on above: Results Start: 09-10-2021 End: 09-10-2021 Patient encounter procedure Cecy Barboza APRN.CAT CRACKER OPERATOR Work Phone: [facility] Comment on above: 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, with long-term current use of insulin (HCC) (Primary Dx); Iron deficiency anemia, unspecified iron deficiency anemia type; Essential hypertension; Mixed hyperlipidemia; Albuminuria; Pain of finger of right hand; Finger numbness; Encounter for vitamin deficiency screening; Screening for thyroid disorder Start: 09-08-2021 Telephone encounter Gerber ramirez DO Work Phone: [facility] [place] Comment on above: Appointment Start: 09-03-2021 Refbenita valenzuela CAR WASH SUPERVISOR.CAT CRACKER OPERATOR Work Phone: [facility] [place] Comment on above: Refill Request Start: 08-26-2021 Telephone encounter Gerber ramirez DO Work Phone: [facility] [place] Comment on above: Patient Question Start: 07-07-2021 Refill Gerber delgado DO Work Phone: [facility] [place] Comment on above: Refill Request Start: 02-24-2021 Telephone encounter Ember Hopper CAR WASH SUPERVISOR.CAT CRACKER OPERATOR Work Phone: Gastroenterology Comment on above: 04-29-2021 Colon EGD Start: 06-04-2020 End: 06-04-2020 Patient encounter procedure [facility] Procedures Date Procedure Procedure Detail Performing Clinician Start: 11-22-2024 Hemoglobin A1c/Hemoglobin.total in Blood Linda Lowery MD Work Phone: Start: 05-02-2024 Ecg routine ecg w/le ast 12 lds i&r only Jamaica Mireles CAR WASH SUPERVISOR.CAT CRACKER OPERATOR Work Phone: Start: 05-01-2024 Radiologic exam ches t 2 views Hermilo Trotter MD Work Phone: Start: 12-23-2022 INFLUENZA VACCINE, A GE 6 MO - 64 YR, QUADRIVALENT (AFLURIA, FLULAVAL, FLUZONE) [place] Mireles CAR WASH SUPERVISOR.CAT CRACKER OPERATOR Work Phone: Start: 01-06-2022 Us pelvic nonobstetr ic image dcmtn limited/f/u Jamaica Marsh CAR WASH SUPERVISOR.CAT CRACKER OPERATOR Work Phone: Start: 01-05-2022 Adult depression scr eening assessment Jamaica Marsh CAR WASH SUPERVISOR.CAT CRACKER OPERATOR Work Phone: Start: 09-10-2021 Hemoglobin A1c/Hemoglobin.total in Blood Cecy Barboza CAR WASH SUPERVISOR.CAT CRACKER OPERATOR Work Phone: Start: 04-30-2021 Colonoscopy Gerber lei DO Work Phone: Start: 11-11-2020 Adult depression scr eening assessment Gerber Pina DO Work Phone: Start: 08-24-2020 Cardiac catheterization Start: 08-22-2020 Ecg routine ecg w/le ast 12 lds i&r only Start: 12-13-2019 Mammography Gerber lei DO Work Phone: History of percutane ous transluminal coronary angioplasty CHRIS EVANS MD History of percutane ous transluminal coronary angioplasty DR GEORGIANA ODEN MD Plan of Treatment Date Care Activity Detail Author Start: 12-23-2032 Urine microalbumin profile [facility] Start: 01-06-2027 HPV TESTING HPV TESTING [facility] Start: 01-06-2027 PAP TESTING PAP TESTING [facility] Start: 01-06-2027 Screening for malignant neoplasm of cervix [facility] Start: 04-30-2026 Colonoscopy COLONOSCOPY [facility] Start: 04-30-2026 COLORECTAL CANCER SCREENING COLORECTAL CANCER SCREENING [facility] Start: 04-30-2026 Screening for malignant neoplasm of colon [facility] Start: 05-24-2025 Annual PCP Team Chronic Disease Visit Annual PCP Team Chronic Disease Visit [facility] Start: 05-24-2025 Covid-19 Vaccine ( season) Covid-19 Vaccine () [facility] Comment on above: Postponed from 12/17/2023 (Declined at t his time) Start: 05-02-2025 Annual PCP Team Chronic Disease Visit Annual PCP Team Chronic Disease Visit [facility] Start: 05-02-2025 Hepatitis B surface antibody level LDL Cholesterol [facility] Start: 02-22-2025 Hemoglobin A1c measurement HbA1C [facility] Start: 12-20-2024 End: 12-20-2024 Patient encounter procedure 12/20/2024 9:40 AM EDT Office Visit Endocrinology [address] [place] [address] Linda Lowery MD [address] [place] [address] 1 month follow up - diabetes mellitus, nonproliferative retinopathy Endocrinology Comment on above: 1 month follow up - diabetes mellitus, n onproliferative retinopathy Start: 12-16-2024 Influenza vaccination Influenza Vaccine (#1) Migel black Start: 12-11-2024 End: 12-11-2024 Patient encounter procedure 12/11/2024 3:30 PM EDT [facility] [address], [place] [id number] [place] [address] [place] [address] Dm f/up [facility] Comment on above: Dm f/up Start: 11-22-2024 End: 11-22-2024 Patient encounter procedure Endocrinology Comment on above: Type 2 diabetes mellitus without complic ation, with long-term current use of insulin (HCC) [E11.9, Z79.4]; Congestive heart failure, unspecified HF chronicity, unspecified heart failure type (HCC) [I50.9] time slot ok per Dr. Lowery Start: 10-21-2024 End: 10-21-2024 Patient encounter procedure 10/21/2024 2:30 PM EDT [facility] [address], [place] [id number] [place] [place] [address] Dm f/up [facility] Comment on above: Dm f/up Start: 10-07-2024 End: 01-06-2025 Hemoglobin A1c in Blood HEMOGLOBIN A1C Lab Routine Type 2 diabetes mellitus with both eyes affected by mild nonproliferative retinopathy without macular edema, with long-term current use of insulin (HCC) Expected: 10/07/2024, Expires: 01/06/2025 [facility] Work Phone: Comment on above: Expected: 10/07/2024, Expires: Start: 10-07-2024 End: 01-06-2025 Microalbumin/Creatinine [Mass Ratio] in Urine ALBUMIN/CREATININE RATIO, URINE Lab Routine Type 2 diabetes mellitus with both eyes affected by mild nonproliferative retinopathy without macular edema, with long-term current use of insulin (HCC) Expected: 10/07/2024, Expires: 01/06/2025 [facility] Comment on above: Expected: 10/07/2024, Expires: Start: 10-07-2024 End: 10-07-2024 Patient encounter procedure 10/07/2024 9:30 AM EDT [facility] [address], [place] [id number] [place] [address] [place] [phone] DM [facility] Comment on above: DM Start: 08-14-2024 End: 08-14-2024 Patient encounter procedure 08/14/2024 9:40 AM EDT Office Visit Family [facility] [address] [place], [place] [phone] Gerber Pina DO [address], [place] [phone] follow up Family [facility] Comment on above: follow up Start: 08-05-2024 End: 08-05-2024 [facility] 08/05/2024 9:00 AM EDT [facility] [address], [place] [id number] [place] [place] [address] Encounter for screening examination for other mental health and behavioral disorders [Z13.39]; Anemia, unspecified type [D64.9]; Mixed hyperlipidemia [E78.2]; Bilateral leg edema [R60.0]; Type 2 diabetes mellitus without complication, with long-term current use of insulin (HCC) [E11.9, Z79.4]; Congestive heart failure, unspecified HF chronicity, unspecified heart failure type (HCC) [I50.9]; Noncompliance with medication regimen [Z91.148] [facility] Comment on above: Encounter for screening examination for other mental health and behavioral disorders [Z13.39]; Anemia, unspecified type [D64.9]; Mixed hyperlipidemia [E78.2]; Bilateral leg edema [R60.0]; Type 2 diabetes mellitus without complication, with long-term current use of insulin (HCC) [E11.9, Z79.4]; Congestive heart failure, unspecified HF chronicity, unspecified heart failure type (HCC) [I50.9]; Noncompliance with medication regimen [Z91.148] Start: 07-31-2024 Hemoglobin A1c measurement HbA1C [facility] Start: 06-05-2024 End: 06-05-2024 Patient encounter procedure 06/05/2024 7:20 AM EST Office Visit [facility] [address] [place], [place] [phone] [place] Mireles APRN.CAT CRACKER OPERATOR [address] [facility] [place] [id number] blood pressure check [facility] Comment on above: blood pressure check Start: 05-24-2024 End: 08-23-2024 CBC W Auto Differential panel - Blood COMPLETE BLOOD COUNT AND DIFFERENTIAL Lab Routine Anemia, unspecified type Congestive heart failure, unspecified HF chronicity, unspecified heart failure type (HCC) Expected: 05/24/2024, Expires: 08/23/2024 [facility] Work Phone: Comment on above: Expected: 05/24/2024, Expires: Start: 05-24-2024 End: 08-23-2024 Comprehensive metabolic 2000 panel - Serum or Plasma COMPREHENSIVE METABOLIC PANEL Lab Routine Anemia, unspecified type Congestive heart failure, unspecified HF chronicity, unspecified heart failure type (HCC) Expected: 05/24/2024, Expires: 08/23/2024 [facility] Comment on above: Expected: 05/24/2024, Expires: Start: 05-24-2024 End: 08-23-2024 Ferritin [Mass/volume] in Serum or Plasma FERRITIN Lab Routine Anemia, unspecified type Expected: 05/24/2024, Expires: 08/23/2024 [facility] Comment on above: Expected: 05/24/2024, Expires: Start: 05-24-2024 End: 08-23-2024 Iron and Iron binding capacity panel - Serum or Plasma IRON AND TIBC Lab Routine Anemia, unspecified type Expected: 05/24/2024, Expires: 08/23/2024 [facility] Comment on above: Expected: 05/24/2024, Expires: Start: 05-24-2024 End: 08-23-2024 Magnesium [Mass/volume] in Serum or Plasma MAGNESIUM Lab Routine Congestive heart failure, unspecified HF chronicity, unspecified heart failure type (HCC) Expected: 05/24/2024, Expires: 08/23/2024 [facility] Comment on above: Expected: 05/24/2024, Expires: Start: 05-24-2024 End: 08-23-2024 Natriuretic peptide.B prohormone N-Terminal [Mass/volume] in Serum or Plasma NT PRO BNP Lab Routine Congestive heart failure, unspecified HF chronicity, unspecified heart failure type (HCC) Expected: 05/24/2024, Expires: 08/23/2024 [facility] Comment on above: Expected: 05/24/2024, Expires: Start: 05-02-2024 End: 08-01-2024 CBC W Auto Differential panel - Blood [facility] Comment on above: Expected: 05/02/2024, Expires: Start: 05-02-2024 End: 08-01-2024 Comprehensive metabolic 2000 panel - Serum or Plasma [facility] Work Phone: Comment on above: Expected: 05/02/2024, Expires: Start: 05-02-2024 End: 08-01-2024 Hemoglobin A1c in Blood [facility] Comment on above: Expected: 05/02/2024, Expires: Start: 05-02-2024 End: 08-01-2024 Lipid 1996 panel - Serum or Plasma [facility] Comment on above: Expected: 05/02/2024, Expires: Start: 05-02-2024 End: 08-01-2024 Natriuretic peptide.B prohormone N-Terminal [Mass/volume] in Serum or Plasma [facility] Comment on above: Expected: 05/02/2024, Expires: Start: 05-02-2024 End: 05-02-2024 Patient encounter procedure 05/02/2024 7:40 AM EST Office Visit [facility] [address] [place], [place] [id number] [place] Mireles, CAR WASH SUPERVISOR.CAT CRACKER OPERATOR [address] [place] [address] urg care f/u [facility] [place] Comment on above: urg care f/u Start: 12-24-2023 3 comp foot exam completed DIABETIC FOOT EXAM [facility] Start: 12-24-2023 ANNUAL PCP TEAM CHRONIC DISEASE VISIT ANNUAL PCP TEAM CHRONIC DISEASE VISIT [facility] Start: 12-24-2023 Covid-19 Vaccine () Covid-19 Vaccine () [facility] Comment on above: Postponed from 12/16/2022 (Declined at t his time) Start: 12-24-2023 COVID-19 VACCINE (3 - Pfizer series) COVID-19 VACCINE (3 - Pfizer series) [facility] Comment on above: Postponed from 12/17/2021 (Declined at t his time) Start: 12-24-2023 Diabetic foot examination Diabetic Foot Exam [facility] Start: 12-17-2023 Covid-19 Vaccine () Covid-19 Vaccine () [facility] Start: 12-17-2023 Influenza vaccination Influenza Vaccine (#1) [facility] Start: 08-27-2023 Hepatitis B screening URINE ALBUMIN:CREATININE RATIO [facility] Start: 08-26-2023 ANNUAL PCP TEAM CHRONIC DISEASE VISIT ANNUAL PCP TEAM CHRONIC DISEASE VISIT [facility] Start: 04-17-2023 Depression Assessment Depression Assessment [facility] Start: 03-24-2023 End: 05-24-2023 Hemoglobin A1c in Blood HGB A1C Lab Routine Type 2 diabetes mellitus without complication, with long-term current use of insulin (HCC) Expected: 03/24/2023, Expires: 05/24/2023 [facility] Work Phone: Comment on above: Expected: 03/24/2023, Expires: 4 Start: 03-24-2023 End: 05-24-2023 Lipid 1996 panel - Serum or Plasma LIPID PANEL BASIC Lab Routine Mixed hyperlipidemia Expected: 03/24/2023, Expires: 05/24/2023 [facility] Work Phone: Comment on above: Expected: 03/24/2023, Expires: 4 Start: 03-23-2023 Hemoglobin A1c measurement HbA1C [facility] Start: 03-23-2023 Hemoglobin A1c/Hemoglobin.total in Blood HBA1C [facility] Start: 01-06-2023 BP CONTROLLED (<130/80) BP CONTROLLED (<130/80) [facility] Start: 01-05-2023 Adult depression screening assessment DEPRESSION SCREENING [facility] Start: 01-05-2023 ANNUAL PCP TEAM CHRONIC DISEASE VISIT ANNUAL PCP TEAM CHRONIC DISEASE VISIT [facility] Start: 01-05-2023 BP CONTROLLED (<130/80) BP CONTROLLED (<130/80) [facility] Start: 12-22-2022 End: 02-21-2023 CBC W Auto Differential panel - Blood CBC + DIFF Lab Routine Type 2 diabetes mellitus without complication, with long-term current use of insulin ([facility]) Expected: 12/22/2022, Expires: 02/21/2023 [facility] Work Phone: Comment on above: Expected: 12/22/2022, Expires: 3 Start: 12-22-2022 End: 02-21-2023 Comprehensive metabolic 2000 panel - Serum or Plasma COMP METABOLIC PANEL Lab Routine Type 2 diabetes mellitus without complication, with long-term current use of insulin (HCC) Expected: 12/22/2022, Expires: 02/21/2023 [facility] Work Phone: Comment on above: Expected: 12/22/2022, Expires: 3 Start: 12-22-2022 End: 02-21-2023 Hemoglobin A1c in Blood HGB A1C Lab Routine Type 2 diabetes mellitus without complication, with long-term current use of insulin (HCC) Expected: 12/22/2022, Expires: 02/21/2023 [facility] Work Phone: Comment on above: Expected: 12/22/2022, Expires: 3 Start: 12-16-2022 Influenza vaccination [facility] Start: 11-26-2022 Hemoglobin A1c/Hemoglobin.total in Blood HBA1C [facility] Start: 10-14-2022 Influenza vaccination INFLUENZA (#1) [facility] Comment on above: Postponed from 12/16/2021 (Declined at t his time) Start: 09-20-2022 Hepatitis B screening URINE ALBUMIN:CREATININE RATIO [facility] Start: 09-20-2022 Hepatitis B surface antibody level LDL CHOLESTEROL [facility] Start: 09-10-2022 3 comp foot exam completed DIABETIC FOOT EXAM [facility] Start: 09-10-2022 ANNUAL PCP TEAM CHRONIC DISEASE VISIT ANNUAL PCP TEAM CHRONIC DISEASE VISIT [facility] Start: 09-10-2022 BP CONTROLLED (<130/80) BP CONTROLLED (<130/80) [facility] Start: 09-10-2022 COVID-19 VACCINE (#1) COVID-19 VACCINE (#1) [facility] Comment on above: Postponed from 1977 (Declined at t his time) Postponed from 09/29 (Declined at this time) Start: 08-25-2022 End: 10-25-2022 ALBUMIN/CREAT RATIO RND UR ALBUMIN/CREAT RATIO RND UR Lab Routine Type 2 diabetes mellitus without complication, with long-term current use of insulin (HCC) Expected: 08/25/2022, Expires: 10/25/2022 [facility] Work Phone: Comment on above: Expected: 08/25/2022, Expires: 3 Start: 08-25-2022 End: 10-25-2022 CBC W Auto Differential panel - Blood CBC + DIFF Lab Routine Type 2 diabetes mellitus without complication, with long-term current use of insulin (HCC) Expected: 08/25/2022, Expires: 10/25/2022 [facility] Work Phone: Comment on above: Expected: 08/25/2022, Expires: 3 Start: 08-25-2022 End: 10-25-2022 Comprehensive metabolic 2000 panel - Serum or Plasma COMP METABOLIC PANEL Lab Routine Type 2 diabetes mellitus without complication, with long-term current use of insulin (HCC) Expected: 08/25/2022, Expires: 10/25/2022 [facility] Work Phone: Comment on above: Expected: 08/25/2022, Expires: 3 Start: 08-25-2022 End: 10-25-2022 Hemoglobin A1c in Blood HGB A1C Lab Routine Type 2 diabetes mellitus without complication, with long-term current use of insulin (HCC) Expected: 08/25/2022, Expires: 10/25/2022 [facility] Work Phone: Comment on above: Expected: 08/25/2022, Expires: 3 Start: 08-25-2022 End: 10-25-2022 Urinalysis complete panel - Urine URINALYSIS, WITH MICROSCOPIC Lab Routine Type 2 diabetes mellitus without complication, with long-term current use of insulin ([facility]) Expected: 08/25/2022, Expires: 10/25/2022 [facility] Work Phone: Comment on above: Expected: 08/25/2022, Expires: 3 Start: 07-04-2022 Urine microalbumin profile DTAP,TDAP,TD (2 - Td or Tdap) [facility] Start: 04-17-2022 DEPRESSION ASSESSMENT DEPRESSION ASSESSMENT [facility] Start: 2022 SHINGRIX VACCINE (1 of 2) SHINGRIX VACCINE (1 of 2) [facility] Start: 03-24-2022 COVID-19 VACCINE (3 - Booster for Pfizer series) COVID-19 VACCINE (3 - Booster for Pfizer series) [facility] Start: 03-22-2022 Hemoglobin A1c/Hemoglobin.total in Blood HBA1C [facility] Start: 03-13-2022 Hemoglobin A1c/Hemoglobin.total in Blood HBA1C [facility] Start: 01-05-2022 End: 03-07-2022 ANTI MULLERIAN HORMONE ANTI MULLERIAN HORMONE Lab Routine Infertility counseling Expected: 01/05/2022, Expires: 03/07/2022 [facility] Work Phone: Comment on above: Expected: 01/05/2022, Expires: 2 Start: 01-05-2022 End: 03-07-2022 CBC W Auto Differential panel - Blood [facility] Work Phone: Comment on above: Expected: 01/05/2022, Expires: 2 Start: 01-05-2022 End: 03-07-2022 Comprehensive metabolic 2000 panel - Serum or Plasma [facility] Work Phone: Comment on above: Expected: 01/05/2022, Expires: 2 Start: 01-05-2022 End: 03-07-2022 ESTROGEN FRACTION BL ESTROGEN FRACTION BL Lab Routine Infertility counseling Expected: 01/05/2022, Expires: 03/07/2022 [facility] Work Phone: Comment on above: Expected: 01/05/2022, Expires: 2 Start: 01-05-2022 End: 03-07-2022 Ferritin [Mass/volume] in Serum or Plasma [facility] Work Phone: Comment on above: Expected: 01/05/2022, Expires: 2 Start: 01-05-2022 End: 03-07-2022 Iron and Iron binding capacity panel - Serum or Plasma [facility] Work Phone: Comment on above: Expected: 01/05/2022, Expires: 2 Start: 01-05-2022 End: 03-07-2022 Progesterone [Mass/volume] in Serum or Plasma PROGESTERONE BLD Lab Routine Infertility counseling Expected: 01/05/2022, Expires: 03/07/2022 [facility] Work Phone: Comment on above: Expected: 01/05/2022, Expires: 2 Start: 01-05-2022 End: 03-07-2022 TESTOSTERONE, FREE AND TOTAL TESTOSTERONE, FREE AND TOTAL Lab Routine Infertility counseling Expected: 01/05/2022, Expires: 03/07/2022 [facility] Work Phone: Comment on above: Expected: 01/05/2022, Expires: 2 Start: 12-17-2021 COVID-19 VACCINE (3 - Booster for Pfizer series) COVID-19 VACCINE (3 - Booster for Pfizer series) [facility] Start: 12-17-2021 COVID-19 VACCINE (3 - Pfizer series) COVID-19 VACCINE (3 - Pfizer series) [facility] Start: 12-16-2021 Influenza vaccination [facility] Start: 12-11-2021 End: 02-10-2022 Hemoglobin A1c/Hemoglobin.total in Blood HGB A1C Lab Routine Type 2 diabetes mellitus with both eyes affected by mild nonproliferative retinopathy without macular edema, with long-term current use of insulin (HCC) Expected: 12/11/2021, Expires: 02/10/2022 [facility] Work Phone: Comment on above: Expected: 12/11/2021, Expires: 2 Start: 12-10-2021 Hepatitis B surface antibody level LDL CHOLESTEROL [facility] Start: 11-11-2021 Adult depression screening assessment DEPRESSION SCREENING [facility] Start: 11-11-2021 ANNUAL PCP TEAM CHRONIC DISEASE VISIT ANNUAL PCP TEAM CHRONIC DISEASE VISIT [facility] Start: 10-07-2021 End: 12-07-2021 Renal function 2000 panel - Serum or Plasma RENAL FUNCTION PANEL Lab Routine Type 2 diabetes mellitus with both eyes affected by mild nonproliferative retinopathy without macular edema, with long-term current use of insulin (HCC) Creatinine elevation Expected: 10/07/2021, Expires: 12/07/2021 [facility] Work Phone: Comment on above: Expected: 10/07/2021, Expires: 2 Start: 09-19-2021 FECAL OCCULT BLOOD FECAL OCCULT BLOOD [facility] Start: 09-19-2021 Screening for malignant neoplasm of colon Fecal Occult Blood [facility] Start: 09-11-2021 Hepatitis B screening URINE ALBUMIN:CREATININE RATIO [facility] Start: 09-10-2021 End: 11-10-2021 ALBUMIN/CREAT RATIO RND UR ALBUMIN/CREAT RATIO RND UR Lab Routine Type 2 diabetes mellitus with both eyes affected by mild nonproliferative retinopathy without macular edema, with long-term current use of insulin (HCC) Essential hypertension Expected: 09/10/2021, Expires: 11/10/2021 [facility] Work Phone: Comment on above: Expected: 09/10/2021, Expires: 2 Start: 09-10-2021 End: 11-10-2021 CBC panel - Blood by Automated count CBC Lab Routine Type 2 diabetes mellitus with both eyes affected by mild nonproliferative retinopathy without macular edema, with long-term current use of insulin (HCC) Iron deficiency anemia, unspecified iron deficiency anemia type Essential hypertension Expected: 09/10/2021, Expires: 11/10/2021 [facility] Work Phone: Comment on above: Expected: 09/10/2021, Expires: 2 Start: 09-10-2021 End: 11-10-2021 Comprehensive metabolic 2000 panel - Serum or Plasma COMP METABOLIC PANEL Lab Routine Type 2 diabetes mellitus with both eyes affected by mild nonproliferative retinopathy without macular edema, with long-term current use of insulin (HCC) Essential hypertension Expected: 09/10/2021, Expires: 11/10/2021 [facility] Work Phone: Comment on above: Expected: 09/10/2021, Expires: 2 Start: 09-10-2021 End: 11-10-2021 FERRITIN BLD FERRITIN BLD Lab Routine Iron deficiency anemia, unspecified iron deficiency anemia type Expected: 09/10/2021, Expires: 11/10/2021 [facility] Work Phone: Comment on above: Expected: 09/10/2021, Expires: 2 Start: 09-10-2021 End: 11-10-2021 IRON + TIBC IRON + TIBC Lab Routine Iron deficiency anemia, unspecified iron deficiency anemia type Expected: 09/10/2021, Expires: 11/10/2021 [facility] Work Phone: Comment on above: Expected: 09/10/2021, Expires: 2 Start: 09-10-2021 End: 11-10-2021 LIPID PANEL BASIC LIPID PANEL BASIC Lab Routine Essential hypertension Albuminuria Expected: 09/10/2021, Expires: 11/10/2021 [facility] Work Phone: Comment on above: Expected: 09/10/2021, Expires: 2 Start: 09-10-2021 End: 11-10-2021 Thyrotropin [Units/volume] in Serum or Plasma TSH BLD Lab Routine Screening for thyroid disorder Expected: 09/10/2021, Expires: 11/10/2021 [facility] Work Phone: Comment on above: Expected: 09/10/2021, Expires: 2 Start: 09-10-2021 End: 11-10-2021 VITAMIN D 25 HYDROXY VITAMIN D 25 HYDROXY Lab Routine Encounter for vitamin deficiency screening Expected: 09/10/2021, Expires: 11/10/2021 [facility] Work Phone: Comment on above: Expected: 09/10/2021, Expires: 2 Start: 04-17-2021 DEPRESSION ASSESSMENT DEPRESSION ASSESSMENT [facility] Start: 03-12-2021 Hemoglobin A1c/Hemoglobin.total in Blood HBA1C [facility] Start: 12-16-2020 Influenza vaccination INFLUENZA (#1) [facility] Start: 12-12-2020 Mammography [facility] Start: 12-12-2020 Screening for malignant neoplasm of breast Mammogram Screening [facility] Start: 10-08-2020 3 comp foot exam completed DIABETIC FOOT EXAM [facility] Start: 10-08-2020 BP CONTROLLED (<130/80) BP CONTROLLED (<130/80) [facility] Start: 03-29-2019 Glaucoma screening Dilated Retinal Exam [facility] Start: 03-29-2019 Hepatitis C antibody, confirmatory test DILATED RETINAL EXAM [facility] Start: 12-12-2017 HPV TESTING HPV TESTING [facility] Start: 12-12-2017 PAP TESTING PAP TESTING [facility] Start: 2017 COLOGUARD (FIT-DNA) COLOGUARD (FIT-DNA) [facility] Start: [address] COLONOGRAPHY [facility] Start: 2017 Screening for malignant neoplasm of colon [facility] Start: 2017 SIGMOIDOSCOPY SIGMOIDOSCOPY [facility] Start: 04-13-2013 PNEUMOCOCCAL (2 - PCV) PNEUMOCOCCAL (2 - PCV) [facility] Start: 1991 HEPATITIS B (1 of 3 - Risk 3-dose series) HEPATITIS B (1 of 3 - Risk 3-dose series) [facility] Start: 1991 Hepatitis B Vaccine (1 of 3 - 19+ 3-dose series) Hepatitis B Vaccine (1 of 3 - 19+ 3-dose series) [facility] Start: 1990 Anxiety Screening Anxiety Screening [facility] Start: 1990 Depression Screening Depression Screening [facility] Start: 1977 COVID-19 VACCINE (#1) COVID-19 VACCINE (#1) [facility] Start: 1977 COVID-19 VACCINE (1) COVID-19 VACCINE (1) [facility] Start: 1972 HEPATITIS B (1 of 3 - 3-dose series) HEPATITIS B (1 of 3 - 3-dose series) [facility] Start: 1972 Hepatitis B Vaccine (1 of 3 - 3-dose series) Hepatitis B Vaccine (1 of 3 - 3-dose series) [facility] Basic metabolic 2008 panel with ionized calcium - Serum or Plasma [facility] Basic metabolic 2008 panel with ionized calcium - Serum or Plasma [facility] End: 12-07-2024 DBT Breast - bilateral screening PAR[facility] SCREENING [facility] Radiology Routine Encounter for screening mammogram for breast cancer 1 Occurrences starting 11/08/2023 until 12/07/2024 [facility] Work Phone: Comment on above: 1 Occurrences starting 11/08/2023 until 12/07/2024 End: 11-07-2025 DBT Breast - bilateral screening PARIS SCREENING [facility] Radiology Routine Encounter for screening mammogram for breast cancer 1 Occurrences starting 10/08/2024 until 11/07/2025 [facility] Work Phone: Comment on above: 1 Occurrences starting 10/08/2024 until 11/07/2025 ECG COMPLETE ECG COMPLETE ECG Routine Bilateral leg edema 05/02/2024 8:41 AM EST [facility] End: 09-10-2022 EMG(NEURO/NI) EMG(NEURO/NI) EMG Routine Type 2 diabetes mellitus with both eyes affected by mild nonproliferative retinopathy without macular edema, with long-term current use of insulin (HCC) Pain of finger of right hand Finger numbness 1 Occurrences starting 09/10/2021 until 09/10/2022 [facility] Work Phone: Comment on above: 1 Occurrences starting 09/10/2021 until 09/10/2022 Hemoglobin A1c/Hemoglobin.total in Blood HEMOGLOBIN A1C (POC) Lab Routine Type 2 diabetes mellitus with both eyes affected by mild nonproliferative retinopathy without macular edema, with long-term current use of insulin (HCC) Ordered: 09/10/2021 [facility] Work Phone: Comment on above: Ordered: 09/10/2021 PAP FLUID CERVICAL SCREENING PAP FLUID CERVICAL SCREENING Lab Routine Screening for cervical cancer Encounter for screening for human papillomavirus (HPV) Ordered: 01/06/2022 [facility] Work Phone: Comment on above: Ordered: 01/06/2022 Radionuclide imaging of perfusion of myocardium under exercise stress [facility] End: 01-21-2023 Screening mammography bi 2-view breast inc cad PAR[facility] SCREENING Radiology Routine Encounter for screening mammogram for breast cancer 1 Occurrences starting 12/22/2021 until 01/21/2023 [facility] Work Phone: Comment on above: 1 Occurrences starting 12/22/2021 until 01/21/2023 End: 02-04-2023 Us pelvic nonobstetric image dcmtn limited/f/u US FEMALE PELVIS TRANSABD LTD Radiology Routine Abnormal uterine bleeding 1 Occurrences starting 01/05/2022 until 02/04/2023 [facility] Work Phone: Comment on above: 1 Occurrences starting 01/05/2022 until 02/04/2023 End: 02-04-2023 Us transvaginal US FEMALE PELVIS TRANSVAG Radiology Routine Abnormal uterine bleeding 1 Occurrences starting 01/05/2022 until 02/04/2023 [facility] Work Phone: Comment on above: 1 Occurrences starting 01/05/2022 until 02/04/2023 [facility] Immunizations Immunization Date Immunization Notes Care Provider Julius madrid 05-03-2024 influenza, seasonal, injectable, preservative free Dr. 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 Gerber Pina DO Work Phone: [facility] 10-01-2021 Covid (Pfizer) Dr. Gerber Pina DO Work Phone: [facility] 01-22-2018 influenza, injectabl e, quadrivalent, contains preservative Gerber Pina DO Work Phone: [facility] 01-22-2018 influenza, injectabl e, quadrivalent, preservative free Dr. Gerber Pina DO Work Phone: [facility] 12-28-2016 influenza, injectabl e, quadrivalent, contains preservative Gerber Pina DO Work Phone: [facility] Work Phone: 12-28-2016 influenza, injectabl e, quadrivalent, preservative free Dr. Gerber Pina DO Work Phone: [facility] 04-19-2016 influenza, injectabl e, quadrivalent, contains preservative Gerber Pina DO Work Phone: [facility] 04-19-2016 influenza, injectabl e, quadrivalent, preservative free Dr. Gerber Pina DO Work Phone: [facility] 06-29-2015 tuberculin skin test ; purified protein derivative solution, intradermal Gerber Bianchion DO Work Phone: [facility] 06-16-2015 tuberculin skin test ; purified protein derivative solution, intradermal Gerber Gonzalezrison DO Work Phone: [facility] 01-28-2015 influenza, injectabl e, quadrivalent, contains preservative Gerber Pina DO Work Phone: [facility] 01-28-2015 influenza, injectabl e, quadrivalent, preservative free Dr. Gerber Pina DO Work Phone: [facility] 01-29-2014 influenza, injectabl e, quadrivalent, preservative free Dr. Gerber Pina DO Work Phone: [facility] 01-29-2014 influenza, seasonal, injectable Gerber Pina DO Work Phone: [facility] 07-04-2012 tetanus toxoid, redu hansa diphtheria toxoid, and acellular pertussis vaccine, adsorbed Gerber Pina DO Work Phone: [facility] Work Phone: 04-13-2012 influenza virus vacc ine, unspecified formulation Gerber Pina DO Work Phone: [facility] 04-13-2012 pneumococcal polysaccharide vaccine, 23 valent Gerber Pina DO Work Phone: [facility] 09-11-[address] Shahla Pina DO Work Phone: [facility] 01-02-1978 diphtheria, tetanus toxoids and acellular pertussis vaccine Dr. Gerber Pina DO Work Phone: [facility] 02-03-1975 diphtheria, tetanus toxoids and acellular pertussis vaccine Dr. Gerber Pina DO Work Phone: [facility] 02-03-1975 trivalent poliovirus vaccine, live, oral Dr. Gerber Pina DO Work Phone: [facility] 12-17-1974 diphtheria, tetanus toxoids and acellular pertussis vaccine Dr. Gerber Pina DO Work Phone: [facility] 12-17-1974 trivalent poliovirus vaccine, live, oral Dr. Gerber Pina DO Work Phone: [facility] 10-21-1974 diphtheria, tetanus toxoids and acellular pertussis vaccine Dr. Gerber Pina DO Work Phone: [facility] 10-21-1974 trivalent poliovirus vaccine, live, oral Dr. Gerber Pina DO Work Phone: [facility] Payers Date Payer Category Payer Private Health Insurance [id number] 2024 Unknown [id number] 2024 Unknown [id number] 2023 Self-pay 2023 Unknown [id number] 2021 Unknown MMO MMO [employer] [id number] 2021-Present [phone] [address] [place] [address] O [id number] 2021 Unknown [id number] 2020 Medicaid [employer] [employer] [employer] [id number] 2020-Present [phone] [address] [place] [address] Medicaid [id number] 2020 Medicaid [id number] 1972 Unknown [id number] 27 1972 Unknown [id number] 27 1972 Unknown [id number] 27 1972 Unknown [id number] 27 Unknown [id number] 62 Unknown [id number] 62 Unknown [id number] 62 Unknown [id number] 62 Unknown [id number] 62 Unknown [id number] [id number] 62 Unknown [id number] 62 Unknown [id number] 62 Unknown [id number] 62 Unknown [id number] 62 Unknown [id number] 62 Unknown [id number] 62 Unknown [id number] 62 Social History Date Type Detail Facility Start: 10-12-2015 End: 01-06-2022 Tobacco smoking status NHIS Never smoked tobacco [facility] Work Phone: Start: 04-30-2021 End: 11-22-2024 Alcohol intake Current non-drinker of alcohol (finding) [facility] Start: 1970 Sex Assigned At Not on file C [facility] Start: 08-30-2021 End: 01-06-2022 Exposure to SARS-CoV-2 (event) Not sure [facility] Start: 10-12-2015 End: 01-06-2022 Tobacco use and exposure Smokeless tobacco non-user [facility] Start: 09-16-2022 End: 09-27-2022 History of Social function [facility] Start: 09-16-2022 End: 09-27-2022 Tobacco use panel [facility] Start: 03-18-2012 Adult Depression Screening Assessment 0 [facility] Sex Assigned At [facility] Start: 08-27-2010 Sex Female (finding) [facility] Start: 1970 Sex Assigned At Female [facility] Medical Equipment Procedure Code Equipment Code Equipment Original Text Equipment Identifier Dates [id number], [id number], [id number], [id number], [id number] Start: 01-18-2017 End: 10-07-2024 Comment on above: Test blood sugar(s) one times daily. Dx: 250.00. Insulin: No Diabetes mellitus ty pe 2, non insulin dependent, testing 1x/day, Use as instructed 2Use one needle for each dose. 1/day. Test blood sugar(s) 1 times daily. Dx: DM2. Insulin: No USE TO CHECK GLUCOSE ONCE DAILY See Instructions , Use one test strip to check blood sugar TID as directed. Dispense insurance preferred test strips. 1 box of 100 strips, # 100 EA, 0 Refill(s), Pharmacy: [facility] 1812, 167.6, cm, 11/10/23 20:01:00 EDT, Height, 63.3, kg, 11/10/23 20:01:00 EDT, Dosing Weight Start: 11-11-2023 See Instructions , Use one lancet to carmen finger for blood sugar testing TID as directed. Dispense insurance preferred lancets.1 box, # 1 EA, 0 Refill(s), Pharmacy: [facility] 1812, 167.6, cm, 11/10/23 20:01:00 EDT, Height, 63.3, kg, 11/10/23 20:01:00 EDT, Dosing Weight Start: 11-11-2023 See Instructions , Use one test strip to check blood sugar TID as directed. Dispense insurance preferred test strips. 1 box of 100 strips, # 100 EA, 0 Refill(s), Pharmacy: [facility] 1812, 167.6, cm, 11/10/23 20:01:00 EDT, Height, 63.3, kg, 11/10/23 20:01:00 EDT, Dosing Weight Start: 11-11-2023 See Instructions , Use one lancet to carmen finger for blood sugar testing TID as directed. Dispense insurance preferred lancets.1 box, # 1 EA, 0 Refill(s), Pharmacy: [facility] 1812, 167.6, cm, 11/10/23 20:01:00 EDT, Height, 63.3, kg, 11/10/23 20:01:00 EDT, Dosing Weight Start: 11-11-2023 Drug-eluting coronary artery stent, non-bioabsorbable -polymer-coated ([id number] FDA Start: 09-01-2022 Pen Needle, Diabetic 29 gauge x 1/2 needle Start: 09-02-2022 Pen Needle, Diabetic 29 gauge x 1/2 needle Start: 09-02-2022 Functional Status Date Assessment Result Facility 05-14-2024 Functional Status Non-Slip footw ear, Room check performed [facility] 05-14-2024 Functional Status [facility] 05-14-2024 Functional Status [facility] 05-13-2024 Functional Status [facility] 05-13-2024 Functional Status Sitting on edge of bed [facility] 05-13-2024 Functional Status [facility] 05-13-2024 Functional Status [facility] 05-13-2024 Functional Status Independent [facility] 05-12-2024 Functional Status [facility] 05-11-2024 Functional Status Done [facility] 05-10-2024 Functional Status Dinner Percent 100 [facility] 05-10-2024 Functional Status Multilevel home [facility] 05-10-2024 Functional Status Sensory Deficits None A [facility] 05-10-2024 Functional Status Environmental Safety Implemented Adequate room lighting, Bed in low position, Call device within reach [facility] 05-09-2024 Functional Status [facility] 11-11-2023 Functional Status Repositioned r ight side, Repositions self [facility] 11-11-2023 Functional Status Room check performed [facility] 11-10-2023 Functional Status N/A [facility] 11-09-2023 Functional Status [facility] 08-20-2014 Are you deaf, or do you have serious difficulty hearing No 08/20/2014 5:10 PM EDT Sherlyn Flores LPN No [facility] 08-20-2014 Are you blind, or do you have serious difficulty seeing, even when wearing glasses No 08/20/2014 5:10 PM EDT Sherlyn Flores LPN No [facility] 08-20-2014 Do you have serious difficulty walking or climbing stairs No 08/20/2014 5:10 PM WILLYT Sherlyn Flores LPN No [facility] 08-20-2014 Do you have difficul ty dressing or bathing No 08/20/2014 5:10 PM EDT Sherlyn Flores LPN No [facility] 08-20-2014 Because of a physica l, mental, or emotional condition, do you have difficulty doing errands alone such as visiting a physician's office or shopping No 08/20/2014 5:10 PM EDT Sherlyn Flores LPN No [facility] Mental Status Date Assessment Result Facility 05-14-2024 Mental Status Orientation Oriented x 4 [facility] 05-13-2024 Mental Status [facility] 05-13-2024 [facility] 05-13-2024 Mental Status Orientation Asse ssment Oriented x 4 [facility] 05-13-2024 [facility]24 [facility] 11-11-2023 Mental Status Oriented x 4 [facility] 11-11-2023 [facility] 11-10-2023 [facility] 11-10-2023 [facility] Status [facility] 08-20-2014 Because of a physica l, mental, or emotional condition, do you have serious difficulty concentrating, remembering, or making decisions No 08/20/2014 5:10 PM EDT Sherlyn Flores LPN No [facility] Clinical Notes 11-19-2015 to 12-11-2024 Telephone Encounter - Emy Rodriguez [facility] - 12/11/2024 4:03 PM EDTTelephone Encounter - Emy Rodriguez [facility] - 12/11/2024 4:03 PM EDTTelephone Encounter - [facility] - 12/11/2024 3:45 PM EDT Note Date & Type Note Facility 12-11-2024 Telephone encounter Note Called pt. to r/s missed appt. LVM. First attempt. [facility] 12-11-2024 Miscellaneous Notes Called pt. to r/s missed appt. LVM. First attempt. Called patient for scheduled phone appt today. Unable to reach x 3, LMOM x 2. Primary Care Pharmacy Rescheduling Outreach Call center, please contact patient and reschedule telephone visit for Diabetes management within ~4 week(s). (Visit length: 30 minutes) Thank you, O[facility] 12/11/2024 3:45 PM documented in this encounter [facility] 12-11-2024 Telephone encounter Note Called patient for scheduled phone appt today. Unable to reach x 3, LMOM x 2. Primary Care Pharmacy Rescheduling Outreach Call center, please contact patient and reschedule telephone visit for Diabetes management within ~4 week(s). (Visit length: 30 minutes) Thank you, O[facility] 12/11/2024 3:45 PM [facility] Work Phone: 11-22-2024 Instructions Linda Lowery MD - 11/22/2024 4:22 PM EDT Please continue with the same dose of insulin Lantus for now, until more data is available Start using continuous glucose monitor - prescription sent Check blood sugars atleast two times daily- fasting and prelunch, alternating with predinner- until the above vice is picked up from the pharmacy- bring log with you next time Please try to rotate sites for insulin injections as discussed today Please take a low carb, high protein diet- avoid any refined or simple carbs Schedule eye exam documented in this encounter [facility] 11-22-2024 Note HNO ID: [id number] Author: LINDA LOWERY MD Service: ? Author Type: Physician Type: Progress Notes Filed: 11/23/2024 20:50 Note Text: [facility] Initial Clinic Visit Note Referred by: Gerber Pina MD Chief complaint: Poorly controlled Type 2 DM My final recommendations will be communicated back to the requesting physician by way of shared medical record or letter via [place] mail. History of Present Illness: -Initially diagnosed: she was diagnosed with GDM at 32 years old and with type DM at 47 years of age Patient reportedly was on multiple medications including metformin, Jardiance, Januvia, glipizide, and insulin, after which she discontinued all medications for natural way of treating She had a recent hospitalization in 04/2024 for dyspnea and cardiac issues, and was found to have severe hyperglycemia with hba1c of 18% after which she was again started on insulin Currently it appears from chart review that she is being managed by Pharmacy, Obed Hernandez [facility] . Symptoms -Polyuria: due to lasix -Polydipsia: not significant -Weight changes: lost weight before staring insulin, also due to work and irregular meals, now she is stable Complications: Cardiovascular -- Yes HTN, HLD, CAD, CHF Statin Use -- atorvastatin 40 mg daily Last ELENA/Retina Eval: several years ago, has been without medical crad for more than 3 years now Retinopathy -- unknown Nephropathy -- yes, from labs in 08/2022. Recent uACR pending STEFFI/ARB Use -- no Polyneuropathy -- no Foot Exam: unknown Obesity -- No Other -- No -Personal history of DKA or HHS-- in 04/2024 Personal history of pancreatitis-- No History of alcohol consumption--No Family history of thyroid cancer-- No Personal history of Urinary tract infections -- None is the past Diabetes Medications -Current regimen: lantus 32 units daily at bedtime -Misses doses: None -Adverse medication effects: none -Rotating injection sites: no -Previously Used DM Meds: Yes Lantus Metformin Glipizide Jardiance Farxiga . Blood sugars -Self monitoring of blood sugar via fingerstick: once x daily - fasting as recommended by pharmacy -Brought blood glucose log for review: no, verbally -BG log reviewed: no --Fasting: Fasting blood glucose levels range from 97-110 mg/dL; one recent reading was 349 mg/dL non fasting on venous labs. --Prelunch: --- --Predinner: --- --Bedtime: --- . Hypoglycemia -Hypoglycemic episodes: none -Frequency and timing of hypoglycemia: N/A -Hypoglycemia awareness: unknown . 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 This also affects her meal timing and exercise -Exercise: -Diet: - Eats twice a day, fasting during night shifts . 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 PAST SURGICAL HISTORY OF 1995 Bilateral removal of breast tissue in axilla PAST SURGICAL HISTORY OF unsure R foot surgery - fusion vs bunionectomy, patient unsure Family History FAMILY HISTORY Problem Relation Age of Onset Cancer Father PROSTATE Alcohol/Drug Father Diabetes Father Hypertension Father Stroke Father Prostate Cancer Father Breast Cancer Maternal Grandmother Diabetes Paternal Uncle Stroke Paternal Uncle Breast Cancer Other MATERNAL COUSINS X2 Hypertension Other NIECE No Ocular Disease No Family History Social History Social History Tobacco Use Smoking status: Never Smokeless tobacco: Never Substance Use Topics Alcohol use: No Drug use: No Allergies ALLERGIES Allergen Reactions Steffi Inhibitors Cough Latex Rash Morphine GI Upset Terrible vomitting Current Medications Current Outpatient Medications Medication Sig Dispense Refill insulin glargine (LANTUS SOLOSTAR U-100 INSULIN) 100 unit/mL (3 mL) Inject 32-34 Units subcutaneously daily at bedtime. 33 mL 3 carvedilol (COREG) 3.125 mg tablet Take 1 tablet by mouth two times a day with meals. 60 tablet 1 TURMERIC ORAL Take by mouth once daily. Biotin 800 mcg tab Take 1 tablet by mouth once daily. ascorbic acid, vitamin C, (VITAMIN C) 500 mg tablet Take 500 mg by mouth once daily. MEDICATION, NON-DATABASE Zinc 30mg by mouth daily MEDICATION, NON-DATABASE Purdentix supplement daily (for teeth and gum health) MEDICATION, NON-DATABASE Sugar Reverse ruiz (more content not included)... [facility] 11-22-2024 History of Presen t illness Narrative [facility] Initial Clinic Visit Note Referred by: Gerber Pina MD Chief complaint: Poorly controlled Type 2 DM My final recommendations will be communicated back to the requesting physician by way of shared medical record or letter via [place] mail. History of Present Illness: -Initially diagnosed: she was diagnosed with GDM at 32 years old and with type DM at 47 years of age Patient reportedly was on multiple medications including metformin, Jardiance, Januvia, glipizide, and insulin, after which she discontinued all medications for natural way of treating She had a recent hospitalization in 04/2024 for dyspnea and cardiac issues, and was found to have severe hyperglycemia with hba1c of 18% after which she was again started on insulin Currently it appears from chart review that she is being managed by Pharmacy, Obed Hernandez [facility] . Symptoms -Polyuria: due to lasix -Polydipsia: not significant -Weight changes: lost weight before staring insulin, also due to work and irregular meals, now she is stable Complications: Cardiovascular -- Yes HTN, HLD, CAD, CHF Statin Use -- atorvastatin 40 mg daily Last ELENA/Retina Eval: several years ago, has been without medical crad for more than 3 years now Retinopathy -- unknown Nephropathy -- yes, from labs in 08/2022. Recent uACR pending STEFFI/ARB Use -- no Polyneuropathy -- no Foot Exam: unknown Obesity -- No Other -- No -Personal history of DKA or HHS-- in 04/2024 Personal history of pancreatitis-- No History of alcohol consumption--No Family history of thyroid cancer-- No Personal history of Urinary tract infections -- None is the past Diabetes Medications -Current regimen: lantus 32 units daily at bedtime -Misses doses: None -Adverse medication effects: none -Rotating injection sites: no -Previously Used DM Meds: Yes Lantus Metformin Glipizide Jardiance Farxiga . Blood sugars -Self monitoring of blood sugar via fingerstick: once x daily - fasting as recommended by pharmacy -Brought blood glucose log for review: no, verbally -BG log reviewed: no --Fasting: Fasting blood glucose levels range from 97-110 mg/dL; one recent reading was 349 mg/dL non fasting on venous labs. --Prelunch: --- --Predinner: --- --Bedtime: --- . Hypoglycemia -Hypoglycemic episodes: none -Frequency and timing of hypoglycemia: N/A -Hypoglycemia awareness: unknown . 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 This also affects her meal timing and exercise -Exercise: -Diet: - Eats twice a day, fasting during night shifts . 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 PAST SURGICAL HISTORY OF 1995 Bilateral removal of breast tissue in axilla PAST SURGICAL HISTORY OF unsure R foot surgery - fusion vs bunionectomy, patient unsure Family History FAMILY HISTORY Problem Relation Age of Onset Cancer Father PROSTATE Alcohol/Drug Father Diabetes Father Hypertension Father Stroke Father Prostate Cancer Father Breast Cancer Maternal Grandmother Diabetes Paternal Uncle Stroke Paternal Uncle Breast Cancer Other MATERNAL COUSINS X2 Hypertension Other NIECE No Ocular Disease No Family History Social History Social History Tobacco Use Smoking status: Never Smokeless tobacco: Never Substance Use Topics Alcohol use: No Drug use: No Allergies ALLERGIES Allergen Reactions Steffi Inhibitors Cough Latex Rash Morphine GI Upset Terrible vomitting Current Medications Current Outpatient Medications Medication Sig Dispense Refill insulin glargine (LANTUS SOLOSTAR U-100 INSULIN) 100 unit/mL (3 mL) Inject 32-34 Units subcutaneously daily at bedtime. 33 mL 3 carvedilol (COREG) 3.125 mg tablet Take 1 tablet by mouth two times a day with meals. 60 tablet 1 TURMERIC ORAL Take by mouth once daily. Biotin 800 mcg tab Take 1 tablet by mouth once daily. ascorbic acid, vitamin C, (VITAMIN C) 500 mg tablet Take 500 mg by mouth once daily. MEDICATION, NON-DATABASE Zinc 30mg by mouth daily MEDICATION, NON-DATABASE Purdentix supplement daily (for teeth and gum health) MEDICATION, NON-DATABASE Sugar Reverse supplement daily MEDICATION, NON-DATABASE JOANNA supplement as needed for constipation ferrous sulfate 325 mg (65 mg iron) EC tablet Take 325 mg by mouth three times a day. (Patient taking differently: Take 325 mg by mouth three times a day. Prescribed by Dr. Taryn Boone (hematology?)) atorvastatin (LIPITOR) 40 mg tablet TAKE 1 TABLET BY MOUTH ONCE DAILY AT BEDTIME FOR CHOLESTEROL 30 tablet 0 clopidogrel (PLAVIX) 75 mg tablet Take 1 tablet by mouth once daily. [address] (PROTONIX) 40 mg tablet Take 1 tablet by mouth once daily. 30 minutes before eating. 30 tablet 0 furosemide (LASIX) 40 mg tablet Take 1 tablet by mouth once daily. 30 tablet 5 alcohol swabs (ALCOHOL PADS) Test Three times a week. Insulin Dep? Yes E11.9 DM 2 200 Each 4 Insulin Hume, Disposable, (BD ULTRA-FINE SONU PEN NEEDLE) 32 gauge x 5/32 ndle 2Use one needle for each dose. 1/day. 90 Each 3 MULTI-VITAMIN ORAL Take by mouth once daily. sacubitril-valsartan (ENTRESTO) 24-26 mg tablet Take 1 tablet by mouth two times a day. (Patient not taking: Reported on 10/07/2024) 60 tablet 5 No current facility-administered medications for this visit. Vitals: 11/22/24 1540 BP: 136/72 BP Site: Right Arm BP Position: Sitting BP Cuff Size: Regular Adult Pulse: 93 Resp: 16 Temp: 36.6 C (97.9 F) TempSrc: Temporal Artery SpO2: 96% Weight: 69.5 kg (153 lb 3.2 oz) Physical Exam GENERAL: Well nourished, thin built, well hydrated, in no distress and oriented x 3 EYES: no thyroid eye signs, EOMI NECK: no tenderness and adenopathy THYROID: Non-tender to palpable, no evidence of goiter, no nodules palpable LUNGS: Unlabored on room air HEART: regular rate and rhythm GI: Injections sites without lipodystrophy EXTREMITIES: no edema NEURO: normal strength, no tremor, monofilament testing with normal sensations OTHER: Acanthosis None Labs Hemoglobin (g/dL) Date Value 07/29/2024 12.7 12/25/2020 7.5 Hematocrit (%) Date Value 07/29/2024 37.8 01/05/2021 26.8 WBC (k/uL) Date Value 07/29/2024 2.91 12/25/2020 4.55 Albumin (g/dL) Date Value 07/29/2024 3.8 (L) Bilirubin, Total (mg/dL) Date Value 07/29/2024 0.2 Alkaline Phosphatase (U/L) Date Value 07/29/2024 99 AST (U/L) Date Value 07/29/2024 31 ALT (U/L) Date Value 07/29/2024 37 Protein, Total (g/dL) Date Value 07/29/2024 7.3 Hemoglobin A1C Date Value Ref Range Status 05/02/2024 18.0 (H) 4.3 - 5.6 % Final Comment: The HbA1c value is greater than 15%. Interpret this hemoglobin A1c result within the patients clinical context. Consider the possibility of a hemoglobin variant interference. Consider ordering Fructosamine as an alternate measurement of glycemic control. If identification of a previously unidentified hemoglobin variant is clinically indicated, consider ordering the hemoglobin evaluation cascade test. [place] [employer] guidelines indicate that patients with HgbA1c in the range 5.7-6.4% are at increased risk for development of diabetes, and intervention by lifestyle modification may be beneficial. HgbA1c greater or equal to 6.5% is considered diagnostic of diabetes. Albumin/Creat Ratio Date Value Ref Range Status 08/26/2022 303 (H) <30 mg/g Final Comment: Adult Male and Female Nephrotic Criteria: <30 mg/g is considered normal to mildly increased 30-300 mg/g is considered moderately increased >300 mg/g is considered severely increased KDIGO. (2013). KDIGO 2012 Clinical Practice Guideline for the Evaluation and Management of Chronic Kidney Disease. Official Journal of the International Society of Nephrology, 3(1), 1-150. Cholesterol, Total Date Value Ref Range Status 05/02/2024 118 <200 mg/dL Final Comment: <200 mg/dL, Desirable 200-239 mg/dL, Borderline high >239 mg/dL, High HDL Cholesterol Date Value Ref Range Status 05/02/2024 58 >39 mg/dL Final Comment: 40-59 mg/dL, Acceptable >59 mg/dL, High: Negative risk factor for coronary heart disease <40 mg/dL, Low: Positive risk factor for coronary heart disease LDL Cholesterol, Calculated Date Value Ref Range Status 05/02/2024 53 <100 mg/dL Final Comment: <100 mg/dL, Optimal 100-129 mg/dL, Near optimal/above optimal 130-159 mg/dL, Borderline high 160-189 mg/dL, High >189 mg/dL, Very high Secondary prevention optimal LDL Cholesterol levels are recommended to be < 70 mg/dL Triglyceride Date Value Ref Range Status 05/02/2024 34 <150 mg/dL Final Comment: <150 mg/dL, Normal 150-199 mg/dL, Borderline high 200-499 mg/dL, High >499 mg/dL, Very high Vitamin D 25 Hydroxy (ng/mL) Date Value 09/20/2021 45.4 09/11/2020 45.9 04/24/2019 18.9 06/03/2017 42.5 01/29/2014 27.5 Hba1c today is 11.5% Assessment and Plan Type 2 DM, on parts counterman insulin use, with complications of microalbuminuria, CAD -A1c 11.5% today improved from 18% in 04/2024 -eGFR 69 in 07/2024 -Current regimen: insulin glargine 32 units daily Plan: - based on patient's verbally reported BG, which she only checks on fasting and with one random BG ov venous labs, it appears she is having significant post meal hyperglycemia while glargine dose may be balancing it, and appears to be higher than required dosing - her glycemia is much better, and her weight has been stable. I reviewed pathophysiology of weight loss due to hyperglycemia with her - we do not have much data, but I advised her to continue same dose of glargine for now as she is not having any lows - recommended changing sites for insulin injections, and reviewed other sites that can be used, which she reports she was not aware - recommended CGM, orders placed for dexcom G7 - I encouraged her to check BG post meal as well, so atleast two times daily until she gets the CGM - she reports [facility] taking care of ?all medical expenses - I reviewed with her she can either follow Endocrinology or Pharmacy, rather than following both for the same condition, and she would like to continue with us -Lifestyle modifications (diet, exercise have been discussed with the patient ---will give dietitian referral if she has not changed her diet by next visit - recommended eye exam #Hypertension, CHF -Today BP 136/72 -Currently on antihypertensive regimen: coreg 3.125 mg BID, lasix 40 mg daily - advised low salt diet - managed by Cardiology #Dyslipidemia -atorvastatin 40 mg daily Scripts sent to pharmacy of pt choice: Yes RTC in 1 months I have confirmed and edited as necessary, the past medical, surgical, family, and social history as obtained by others. I spent a total of 47 minutes on the date of the service which included preparing to see the patient, [id number] patient care, completing clinical documentation, obtaining and/or reviewing separately obtained history, performing a medically appropriate examination, counseling and educating the patient/family/caregiver, ordering medications, tests, or procedures, independently interpreting results (not separately reported), and communicating results to the patient/family/caregiver. Linda Lowery MD Endocrinology Associate Staff [facility] Specialty & Surgery [facility] Endocrinology and Metabolism [place] [phone] documented in this encounter [facility] 11-22-2024 Evaluation note Diagnosis Onset Date Resolution Atherosclerotic heart disease of [place] coronary artery without angina pectoris acute November 22, 2024 7:59am HFrEF (heart failure with reduced ejection fraction) acute November 22, 2024 7:59am Stented coronary artery September 01, 2022 acute November 22, 2024 7:59am Dyslipidemia chronic November 22, 2024 7:59am Essential hypertension chronic November 22, 2024 7:59am [facility] Work Phone: [phone] 511-663607-14-2025 Telephone encounter Note* Telephone Encounter - [facility] - 10/28/2024 11:35 AM EDT Called Zeynep Mejía [facility] ([phone]) to see if patient would be able to get free Jardiance through their program. Unable to speak with a person so LMOM requesting a call back. Obed Hernandez PharmD, [facility] Clinical Pharmacist [facility] Work Phone: [phone] Miscellaneous Notes* Telephone Encounter - Obed Hernandez RPh - 10/28/2024 11:35 AM EDT Called [facility] ([facility] ([phone]) to see if patient would be able to get free Jardiance through their program. Unable to speak with a person so LMOM requesting a call back. Obed Hernandez PharmD, [facility] Clinical Pharmacist documented in this encounterLouis Stokes [facility] Center07-07-2025 History of Present illness Narrative* Obed Hernandez RPh - 10/21/2024 2:30 PM EDT Primary Care Pharmacy Visit CC (Reason for Consult): Diabetes (E11.9, Z79.4) Type 2 diabetes mellitus without complication, with long-term current use of insulin ([facility]) (primary encounter diagnosis) Goal: A1c < 7% Referring Provider: Dr. Pina Last Collaborating Provider Visit: 05/24/24 Mariella Ramirez is a 54 year old female presenting for follow up visit telephone call. Patient consents to pharmacy collaborative practice agreement. Interim Events: 05/24: Hospital f/up; Pt was seen in office on 05/02 and reported that she stopped all medication andtrying to use natural remedies. After getting lab work (hgA1c 18, BNP 8555, and hgb of 6.8) she wassent to ER for admission. [facility] admission on 05/03 managed anemia by iron infusions and GI performed upper and lower endoscopies with unremarkable findings. Pt is Anabaptism so no blood was given. She was discharged. Then pt went to [facility] ER on 05/09 d/t BLE edema and dyspnea. BNP was > 38315, trop was negative. No infectious etiology. Hgb was 6.7. ECHO with EF of 40-45%. Seen by CHF team and stated on lasix drip. Sent home on 40 mg lasix daily. Also started on Entresto. Referred to pharmacy team 10/07: initial PharmD visit; no med changes made since improved sx of hyperglycemia and no SMBG to review; advised to purchase ReliOn glucometer and start SMBG HPI: Reports things are doing better with diabetes. She has been more aware of sugars since starting to test blood sugars. Was able to get ReliOn supplies. Has made even more dietary changes since gettingBG readings. Energy level has improved, thirst and dry mouth has improved, not peeing as much. I feel balanced. Seeing cardiology next week. Current DM Medications: Insulin glargine (Basaglar) 30 units once daily QHS (taking daily; if BG is high, she will take a second dose of 30 units later in the day; does this maybe 2x/week) SMBGS (Fingersticks) Checking FBGs most days; recently 170s-190s; the first time she checked it BG was in 400s Preventative Medications: On STEFFI/ARB: Yes On Statin: Yes ROS: Patient denies CP, SOB, BARRON, blurred vision, dizziness or lightheadedness Patient denies symptoms of hypoglycemia (sweating, anxiety, palpitations, hunger, and tremor) Patient denies symptoms of hyperglycemia (polyuria, polydipsia, polyphagia) Patient denies potential medication adverse effects DIET/EXERCISE/SOCIAL Hx: Reviewing nutrition labels MEDICATIONS: Pill bottles are not present. Adherence: denies missed doses. Pharmacy: [facility] [address] [place] [id number] [facility] [phone] Rx coverage: No coverage found. Medications affordable? Yes but brand meds are not affordable; doesn't qualify for Medicaid or patient assistance Diabetes Supplies: Yes Organization system: ACTIVE PROBLEM LIST Hidradenitis Overweight (Bmi 25.0-29.9) DM (diabetes mellitus), type 2, uncontrolled, with renal complications (HCC) Essential Hypertension Abnormal Finding On Breast Imaging Fat Necrosis (Segmental) of Breast Constipation Hld (Hyperlipidemia) Type 2 Diabetes Mellitus With Both Eyes Affected By Mild Nonproliferative Retinopathy Without Macular Edema, With Long-Term Current Use of Insulin (Hcc) PAST MEDICAL HISTORY Diagnosis Date Constipation Coronary artery disease Diabetes mellitus without mention of complication Diabetes mellitus, gestational with last Hyperlipemia Hypertension Uncontrolled type 2 DM with proteinuria or microalbuminuria 07/04/2012 Past medical history reviewed. ALLERGIES Allergen Reactions Steffi Inhibitors Cough Latex Rash Morphine GI Upset Terrible vomitting Medication List Medication Directions Comments Action/Plan alcohol swabs (ALCOHOL PADS) Test Three times a week. Insulin Dep? Yes E11.9 DM 2 ascorbic acid, vitamin C, (VITAMIN C) 500 mg tablet Take 500 mg by mouth once daily. atorvastatin (LIPITOR) 40 mg tablet TAKE 1 TABLET BY MOUTH ONCE DAILY AT BEDTIME FOR CHOLESTEROL Biotin 800 mcg tab Take 1 tablet by mouth once daily. carvedilol (COREG) 3.125 mg tablet Take 1 tablet by mouth two times a day with meals. clopidogrel (PLAVIX) 75 mg tablet Take 1 tablet by mouth once daily. ferrous sulfate 325 mg (65 mg iron) EC tablet Take 325 mg by mouth three times a day. Patient taking differently: Take 325 mg by mouth three times a day. Prescribed by Dr. Taryn Boone (hematology?) furosemide (LASIX) 40 mg tablet Take 1 tablet by mouth once daily. insulin glargine (LANTUS SOLOSTAR U-100 INSULIN) 100 unit/mL (3 mL) Inject 30 Units subcutaneously daily at bedtime. Patient taking differently: Inject 30 Units subcutaneously daily at bedtime. (Basaglar) Insulin Hume, Disposable, (BD ULTRA-FINE SONU PEN NEEDLE) 32 gauge x 5/32 ndle 2Use one needle for each dose. 1/day. MEDICATION, NON-DATABASE Zinc 30mg by mouth daily MEDICATION, NON-DATABASE Purdentix supplement daily (for teeth and gum health) MEDICATION, NON-DATABASE Sugar Reverse supplement daily MEDICATION, NON-DATABASE JOANNA supplement as needed for constipation MULTI-VITAMIN ORAL Take by mouth once daily. pantoprazole DR (PROTONIX) 40 mg tablet Take 1 tablet by mouth once daily. 30 minutes before eating. sacubitril-valsartan (ENTRESTO) 24-26 mg tablet Take 1 tablet by mouth two times a day. Patient not taking: Reported on 10/07/2024 TURMERIC ORAL Take by mouth once daily. Exam: LMP 12/30/2021 (Approximate) Last 3 Encounter BP Readings: Date: BP: 05/24/2024 139/70 05/02/2024 162/90 05/01/2024 154/90 Wt: 71.7 kg (158 lb) BMI: 24.80 kg/(m^2) LABS: Reviewed Lab Results Component Value Date HBA1C 18.0 05/02/2024 HBA1C 8.9 12/22/2022 HBA1C 15.3 08/26/2022 HBA1C 7.6 09/10/2021 HBA1C 7.6 09/10/2021 HBA1C 8.4 12/10/2020 HBA1C 10.5 09/11/2020 HBA1C 11.1 08/22/2020 CMP: Glucose 515 07/29/2024 BUN 19 07/29/2024 Creatinine 0.99 07/29/2024 Sodium 129 07/29/2024 Potassium 4.8 07/29/2024 Chloride 91 07/29/2024 CO2 26 07/29/2024 Protein, Total 7.3 07/29/2024 Albumin 3.8 07/29/2024 Calcium 9.6 07/29/2024 Alkaline Phosphatase 99 07/29/2024 Bilirubin, Total 0.2 07/29/2024 AST 31 07/29/2024 ALT 37 07/29/2024 eGFR 69 CrCl 64-75 mL/min depending on BW used Lab Results Component Value Date CHOL 118 05/02/2024 CHOL 101 12/10/2020 LDL 53 05/02/2024 LDL 49 12/10/2020 HDL 58 05/02/2024 HDL 41 12/10/2020 TG 34 05/02/2024 TG 53 12/10/2020 The ASCVD Risk score (Yobani VERDUZCO, et al., 2019) failed to calculate for the following reasons: The valid total cholesterol range is 130 to 320 mg/dL Unable to determine if patient is Non- Albumin/Creat Ratio (mg/g) Date Value 08/26/2022 303 (H) PHARMACOTHERAPY ASSESSMENT/PLAN: 1. Type 2 diabetes mellitus without complication, with long-term current use of insulin (HCC) - ICD9: 250.00, V58.67, ICD10: E11.9, Z79.4 A1c goal < 7%; uncontrolled (last A1c 18%); SMBGs elevated but significantly improved; sx hyperglycemia have improved; (-) sx of high or low sugars; feeling well; would greatly benefit from Jardiance given her hx of CAD, CHF, and CKD + proteinuria but unfortunately doesn't qualify for Medicaid or patient assistance and med is not affordable with insurance; may see if patient would be able to get medication through the [facility], PharmD will f/up on this; patient seeing endo nextmonth so will f/up several weeks after that appt INCREASE Basaglar to 32 units daily. If FBGs still >130 mg/dL after 3-5 days, then INCREASE doseto 34 units daily Warned of risk of hypoglycemia if doubling doses of Basaglar. Reviewed differences in fast acting vs long acting insulin and educated not to take extra Basaglar if sugars are acutely elevated Applauded on SMBG and making dietary modifications accordingly Reviewed simple vs complex carbohydrates. Encouraged reviewing nutrition labels and focusing on total carbs rather than added sugar Pt aware of proper identification/mngt of low sugars Due for labs Health Maintenance - Diabetes Topic Date Due Dilated Retinal Exam 03/29/2019 Urine Albumin:Creatinine Ratio 08/27/2023 Diabetic Foot Exam 12/24/2023 HbA1C 07/31/2024 Follow-up Patient is not scheduled to see PCP team. Patient to have f/up with PharmD team on 12/11. Patient verbalized understanding of instructions. Obed Hernandez PharmD, [facility] Primary Care Clinical Pharmacist Time spent: 42 mins documented in this encounterLouis Stokes Cleveland Va [facility] Center07-07-2025 NoteHNO ID: [id number] Author: OBED HERNANDEZ RPh Service: ? Author Type: Pharmacist Type: Progress Notes Filed: 10/21/2024 15:56 Note Text: Primary Care Pharmacy Visit CC (Reason for Consult): Diabetes (E11.9, Z79.4) Type 2 diabetes mellitus without complication, with long-term current use of insulin (HCC) (primary encounter diagnosis) Goal: A1c < 7% Referring Provider: Dr. Pina Last Collaborating Provider Visit: 05/24/24 Mariella Ramirez is a 54 year old female presenting for follow up visit telephone call. Patient consents to pharmacy collaborative practice agreement. Interim Events: 05/24: Hospital f/up; Pt was seen in office on 05/02 and reported that she stopped all medication and trying to use natural remedies. After getting lab work (hgA1c 18, BNP 8555, and hgb of 6.8) she was sent to ER for admission. [facility] admission on 05/03 managed anemia by iron infusions and GI performed upper and lower endoscopies with unremarkable findings. Pt is Anabaptism so no blood was given. She was discharged. Then pt went to [facility] ER on 05/09 d/t BLE edema and dyspnea. BNP was > 35347, trop was negative. No infectious etiology. Hgb was 6.7. ECHO with EF of 40-45%. Seen by CHF team and stated on lasix drip. Sent home on 40 mg lasix daily. Also started on Entresto. Referred to pharmacy team 10/07: initial PharmD visit; no med changes made since improved sx of hyperglycemia and no SMBG to review; advised to purchase ReliOn glucometer and start SMBG HPI: Reports things are doing better with diabetes. She has been more aware of sugars since starting to test blood sugars. Was able to get ReliOn supplies. Has made even more dietary changes since getting BG readings. Energy level has improved, thirst and dry mouth has improved, not peeing as much. I feel balanced. Seeing cardiology next week. Current DM Medications: Insulin glargine (Basaglar) 30 units once daily QHS (taking daily; if BG is high, she will take a second dose of 30 units later in the day; does this maybe 2x/week) SMBGS (Fingersticks) Checking FBGs most days; recently 170s-190s; the first time she checked it BG was in 400s Preventative Medications: On STEFFI/ARB: Yes On Statin: Yes ROS: Patient denies CP, SOB, BARRON, blurred vision, dizziness or lightheadedness Patient denies symptoms of hypoglycemia (sweating, anxiety, palpitations, hunger, and tremor) Patient denies symptoms of hyperglycemia (polyuria, polydipsia, polyphagia) Patient denies potential medication adverse effects DIET/EXERCISE/SOCIAL Hx: Reviewing nutrition labels MEDICATIONS: Pill bottles are not present. Adherence: denies missed doses. Pharmacy: [facility] [address] [place] [id number] [facility] [phone] 1812 Rx coverage: No coverage found. Medications affordable? Yes but brand meds are not affordable; doesn't qualify for Medicaid or patient assistance Diabetes Supplies: Yes Organization system: ACTIVE PROBLEM LIST Hidradenitis Overweight (Bmi 25.0-29.9) DM (diabetes mellitus), type 2, uncontrolled, with renal complications (HCC) Essential Hypertension Abnormal Finding On Breast Imaging Fat Necrosis (Segmental) of Breast Constipation Hld (Hyperlipidemia) Type 2 Diabetes Mellitus With Both Eyes Affected By Mild Nonproliferative Retinopathy Without Macular Edema, With Long-Term Current Use of Insulin (Hcc) PAST MEDICAL HISTORY Diagnosis Date Constipation Coronary artery disease Diabetes mellitus without mention of complication Diabetes mellitus, gestational with last Hyperlipemia Hypertension Uncontrolled type 2 DM with proteinuria or microalbuminuria 07/04/2012 Past medical history reviewed. ALLERGIES Allergen Reactions Steffi Inhibitors Cough Latex Rash Morphine GI Upset Terrible vomitting Medication List Medication Directions Comments Action/Plan alcohol swabs (ALCOHOL PADS) Test Three times a week. Insulin Dep? Yes E11.9 DM 2 ascorbic acid, vitamin C, (VITAMIN C) 500 mg tablet Take 500 mg by mouth once daily. atorvastatin (LIPITOR) 40 mg tablet TAKE 1 TABLET BY MOUTH ONCE DAILY AT BEDTIME FOR CHOLESTEROL Biotin 800 mcg tab Take 1 tablet by mouth once daily. carvedilol (COREG) 3.125 mg tablet Take 1 tablet by mouth two times a day with meals. clopidogrel (PLAVIX) 75 mg tablet Take 1 tablet by mouth once daily. ferrous sulfate 325 mg (65 mg iron) EC tablet Take 325 mg by mouth three times a day. Patient taking differently: Take 325 mg by mouth three times a day. Prescribed by Dr. Taryn Boone (hematology?) furosemide (LASIX) 40 mg tablet Take 1 tablet by mouth once daily. insulin glargine (LANTUS SOLOSTAR U-100 INSULIN) 100 unit/mL (3 mL) Inject 30 Units subcutaneously daily at bedtime. Patient taking differently: Inject 30 Units subcutaneously daily at bedtime. (Basaglar) Insulin Hume, Disposable, (BD ULTRA-FINE SONU PEN NEEDLE) 32 gauge x 532 ndl (more content not included)...[facility]06-24-2025 Note Patient Outreach (FAMPWS) MARIELLA RAMIREZ ([id number]) 1970 F T Date Time Provider Department 10/08/24 GERBER PINA During your visit today, we recorded the following information about you: Allergies As of Date: 10/08/2024 Noted Allergy Reaction STEFFI INHIBITORS 01/29/2014 3 - Cough LATEX 09/21/2011 2 - Rash MORPHINE 05/02/2024 8 - GI Upset Comments: Terrible vomitting Date Reviewed: 05/24/2024 Reviewed by: Gi Mae LPN - Fully Assessed Visit Diagnosis:Encounter for screening mammogram for breast cancer [Z12.31] Order(s):PARIS SCREENING W YVETTE [[id number]] Order #: [id number] FUTURE Prescriptions as of 11/08/2024 - insulin glargine (LANTUS SOLOSTAR U-100 INSULIN) 100 unit/mL (3 mL) Inject 32-34 Units subcutaneously daily at bedtime. - carvedilol (COREG) 3.125 mg tablet Take 1 tablet by mouth two times a day with meals. - TURMERIC ORAL Take by mouth once daily. - Biotin 800 mcg tab Take 1 tablet by mouth once daily. - ascorbic acid, vitamin C, (VITAMIN C) 500 mg tablet Take 500 mg by mouth once daily. - MEDICATION, NON-DATABASE Zinc 30mg by mouth daily - MEDICATION, NON-DATABASE Purdentix supplement daily (for teeth and gum health) - MEDICATION, NON-DATABASE Sugar Reverse supplement daily - MEDICATION, NON-DATABASE JOANNA supplement as needed for constipation - ferrous sulfate 325 mg (65 mg iron) EC tablet Take 325 mg by mouth three times a day. - atorvastatin (LIPITOR) 40 mg tablet TAKE 1 TABLET BY MOUTH ONCE DAILY AT BEDTIME FOR CHOLESTEROL - clopidogrel (PLAVIX) 75 mg tablet Take 1 tablet by mouth once daily. - pantoprazole DR (PROTONIX) 40 mg tablet Take 1 tablet by mouth once daily. 30 minutes before eating. - furosemide (LASIX) 40 mg tablet Take 1 tablet by mouth once daily. - sacubitril-valsartan (ENTRESTO) 24-26 mg tablet Take 1 tablet by mouth two times a day. - alcohol swabs (ALCOHOL PADS) Test Three times a week. Insulin Dep? Yes E11.9 DM 2 - Insulin Hume, Disposable, (BD ULTRA-FINE SONU PEN NEEDLE) 32 gauge x ndle 2Use one needle for each dose. 1/day. - MULTI-VITAMIN ORAL Take by mouth once daily. Meds Comments as of 05/02/2024: Not taking any of her medications as of appointment on 05/02/24. Wants to use natural remedies instead. Problem List As Of Date 10/08/2024 Noted Resolved Hidradenitis [L73.2] 09/26/2011 Overweight (BMI 25.0-29.9) [E66.3] 07/04/2012 DM (diabetes mellitus), type 2, uncontrolled, w*07/04/2012 Essential hypertension [I10] 11/12/2014 Abnormal finding on breast imaging [R92.8] 10/13/2015 Fat necrosis (segmental) of breast [N64.1] 10/15/2015 Constipation [K59.00] Type 2 diabetes mellitus without complication (*11/19/2015 10/20/2017 HLD (hyperlipidemia) [E78.5] 11/19/2015 Type 2 diabetes mellitus with both eyes affecte*03/29/2018 Encounter Status:Closed by DELMY BE on 11/08/24[facility] 10-07-2024 Telephone encounter Note* Telephone Encounter - Obed Hernandez RPh - 10/07/2024 9:23 PM EDT During PharmD visit today, patient noted almost being out of carvedilol. She needs a refill. Last script was only for a 15 day supply with zero refills. Sending to PCP to refill if appropriate. Requested Prescriptions Pending Prescriptions Disp Refills carvedilol (COREG) 3.125 mg tablet 60 tablet 1 Sig: Take 1 tablet by mouth two times a day with meals. Obed Hernandez RPh [facility]06-23-2025 Miscellaneous Notes* Telephone Encounter - Obed Hernandez RPh - 10/07/2024 9:23 PM EDT During PharmD visit today, patient noted almost being out of carvedilol. She needs a refill. Last script was only for a 15 day supply with zero refills. Sending to PCP to refill if appropriate. Requested Prescriptions Pending Prescriptions Disp Refills carvedilol (COREG) 3.125 mg tablet 60 tablet 1 Sig: Take 1 tablet by mouth two times a day with meals. Obed Hernandez RPh documented in this encounterLouis Stokes Cleveland [facility] Center06-23-2025 History of Present illness Narrative* Obed Hernandez RPh - 10/07/2024 9:30 AM EDT Primary Care Pharmacy Visit CC (Reason for Consult): Diabetes (E11.3293, Z79.4) Type 2 diabetes mellitus with both eyes affected by mild nonproliferative retinopathy without macular edema, with long-term current use of insulin ([facility]) (primary encounter diagnosis) Goal: A1c < 7% Last Collaborating Provider Visit: 05/24/24 Mariella Ramirez is a 54 year old female presenting for initial visit: This initial consult was conducted telephone call with the patient where the consult agreement was explained. The patient may decline or cancel the agreement at any time. After consideration, the patient consented to the pharmacy consult agreement and agreed to allow medications be collaboratively managed by a pharmacist. Interim Events: 05/24: Hospital f/up; Pt was seen in office on 05/02 and reported that she stopped all medication andtrying to use natural remedies. After getting lab work (hgA1c 18, BNP 8555, and hgb of 6.8) she wassent to ER for admission. [facility] admission on 05/03 managed anemia by iron infusions and GI performed upper and lower endoscopies with unremarkable findings. Pt is Anabaptism so no blood was given. She was discharged. Then pt went to [facility] ER on 05/09 d/t BLE edema and dyspnea. BNP was > 65183, trop was negative. No infectious etiology. Hgb was 6.7. ECHO with EF of 40-45%. Seen by CHF team and stated on lasix drip. Sent home on 40 mg lasix daily. Also started on Entresto. Referred to pharmacy team HPI: Reports she had an issue with her insurance and she wasn't able to get the proper care that she needed. She stated the problem has been fixed. 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 Still without insurance but can get to [facility] appointments. [facility] assistance started about 2 weeks ago. Her work has a medication reimbursement plan, but only reimburses up to $1200/year. Has tried applying to Medicaid in the past (applied earlier in 2024) but was told that income is too high. She doesnot qualify for PAP programs because income is too high. Reports diabetes control was very bad according to last labs. Doesn't have a glucometer to check her sugars. States [facility] was going to get her a meter but she couldn't get one. 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 Denies thirst issues recently. Said she did used to want water constantly, but now since intentionally drinking more water during the day she is not having issues with thirst or dry mouth. Did have a lot of frequent urination but no longer an issue. States she started to feel better after winter. No vision changes. No CP, Shortness of Breath, palpitations, severe BARRON. States she had been in the hospital twice. States she has tried to learn from what they did in the hospital (with eating and drinking water) so she is feeling better now that she has been making somechanges. 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 Sleeps from 7 AM - noon or 3 PM. Current DM Medications: Dapagliflozin (Farxiga) 5mg daily (not taking) Insulin glargine (Lantus) 30 units once daily QHS (taking Basaglar) Insulin lispro (Humalog) 12 units TID (not taking) Preventative Medications: On STEFFI/ARB: Yes On Statin: Yes ROS: Patient denies CP, SOB, BARRON, blurred vision, dizziness or lightheadedness Patient denies symptoms of hypoglycemia (sweating, anxiety, palpitations, hunger, and tremor) Patient denies symptoms of hyperglycemia (polyuria, polydipsia, polyphagia) Patient denies potential medication adverse effects DIET/EXERCISE/SOCIAL Hx: Reports improved diet and drinking more water since winter hospitalization. Not enough time to discuss specifics. MEDICATIONS: Pill bottles are present. Adherence: denies missed doses. Pharmacy: [facility] [address] [place] [id number] [facility] [phone] 1812 Rx coverage: No coverage found. Medications affordable? No - brands are expensive Diabetes Supplies: No Organization system: ACTIVE PROBLEM LIST Hidradenitis Overweight (Bmi 25.0-29.9) DM (diabetes mellitus), type 2, uncontrolled, with renal complications (HCC) Essential Hypertension Abnormal Finding On Breast Imaging Fat Necrosis (Segmental) of Breast Constipation Hld (Hyperlipidemia) Type 2 Diabetes Mellitus With Both Eyes Affected By Mild Nonproliferative Retinopathy Without Macular Edema, With Long-Term Current Use of Insulin (Hcc) PAST MEDICAL HISTORY Diagnosis Date Constipation Coronary artery disease Diabetes mellitus without mention of complication Diabetes mellitus, gestational with last Hyperlipemia Hypertension Uncontrolled type 2 DM with proteinuria or microalbuminuria 07/04/2012 Past medical history reviewed. ALLERGIES Allergen Reactions Steffi Inhibitors Cough Latex Rash Morphine GI Upset Terrible vomitting Medication List Medication Directions Comments Action/Plan alcohol swabs (ALCOHOL PADS) Test Three times a week. Insulin Dep? Yes E11.9 DM 2 atorvastatin (LIPITOR) 40 mg tablet TAKE 1 TABLET BY MOUTH ONCE DAILY AT BEDTIME FOR CHOLESTEROL Taking at bedtime (in the AM when she gets off work) BABY ASPIRIN ORAL Take by mouth. States she stopped using it, it was stopped being prescribed; she thinks she had a stent placed ~6 months ago but isn't sure and I can't find any documentation of this in the chart; I do see stent placed in August 2022 Removed from med list blood sugar diagnostic (BLOOD GLUCOSE TEST) test strip Test blood sugar(s) one times daily. Dx: 250.00. Insulin: No Not using blood sugar diagnostic (BLOOD GLUCOSE TEST) test strip Test blood sugar(s) 3 times daily. Dx: Type 2 DM - Controlled E11.9 Insulin: Yes Not using blood sugar diagnostic (RELION PRIME TEST STRIPS) test strip Diabetes mellitus type 2, non insulin dependent, testing 1x/day, Use as instructed Can't afford Blood-Glucose Meter (ONETOUCH ULTRA2 METER) monitoring kit 1 Each as needed. One Touch Meter Kit Diagnosis: Diabetes Mellitus Can't afford Blood-Glucose Meter,Continuous (FREESTYLE JACQUE 3 READER) misc Use to check blood sugar at least four (4) times daily. Not using Blood-Glucose Sensor (FREESTYLE JCAQUE 3 PLUS SENSOR) marbella Apply new sensor every fifteen (15) days to upper arm. Not using carvedilol (COREG) 3.125 mg tablet Take 1 tablet by mouth two times a day with meals. Taking BID, needs a refill PharmD will reach out to PCP to request refill. Was only ordered a 15 day supply Cholecalciferol, Vitamin D3, (DIALYVITE VITAMIN D) 125 mcg (5,000 unit) cap Take 1 capsule by mouthonce daily. Not taking Removed from med list clopidogrel (PLAVIX) 75 mg tablet Take 1 tablet by mouth once daily. Taking daily QAM dapagliflozin propanediol (FARXIGA) 5 mg tablet Take 1 tablet by mouth daily with breakfast. Not taking Removed from med list, too expensive furosemide (LASIX) 40 mg tablet Take 1 tablet by mouth once daily. Taking QAM ibuprofen 800 mg tablet Take 1 tablet by mouth every 8 hours as needed (FOR PAIN. TAKE WITH FOOD). Not taking Removed from med list insulin glargine (LANTUS SOLOSTAR U-100 INSULIN) 100 unit/mL (3 mL) Inject 30 Units subcutaneously daily at bedtime. Basaglar; taking 30 units once daily Updated med list insulin lispro (HUMALOG KWIKPEN INSULIN) 100 unit/mL 12 units 3 times daily Patient taking differently: Inject 6 Units subcutaneously three times a day before meals. 12 units 3 times daily Not using, doesn't have Removed from med list Insulin Hume, Disposable, (BD ULTRA-FINE SONU PEN NEEDLE) 32 gauge x 5/32 ndle 2Use one needle for each dose. 1/day. Lancets Test blood sugar(s) 1 times daily. Dx: DM2. Insulin: No Lancets Test Three times a week. Insulin Dep? Yes E11.9 DM 2 lisinopril (ZESTRIL) 10 mg tablet Take 1 tablet by mouth once daily. Not taking; also prescribed Entresto; script on file Removed from med list metoprolol succinate ER (TOPROL XL) 100 mg Take 1 tablet by mouth two times a day. Not taking, on carvedilol Removed from med list MULTI-VITAMIN ORAL Take by mouth. Taking 1 tab daily Updated med list ONETOUCH ULTRA TEST test strip USE TO CHECK GLUCOSE ONCE DAILY pantoprazole DR (PROTONIX) 40 mg tablet Take 1 tablet by mouth once daily. 30 minutes before eating. Taking QAM (after work); denies issues with acid reflux Advised to discuss with PCP the possibility of stopping since she denies GI issues or reflux sacubitril-valsartan (ENTRESTO) 24-26 mg tablet Take 1 tablet by mouth two times a day. Not currently taking, was told she can't get a refill until she sees a doctor with [facility]; hasn't taken in months Advised to call [facility] to make appt ANGELIA; marked as not taking spironolactone (ALDACTONE) 25 mg tablet Take 1 tablet by mouth once daily. Not taking Removed from med list ticagrelor (BRILINTA) 90 mg tablet Take by mouth. [facility] Not taking currently, on clopidogrel Removed from med list Rx meds not listed in EPIC: ferrous sulfate 325mg 1 tab TID (taking all 3 tabs once daily), prescribed by Dr. Taryn Boone (hematology?) OTCs: none Herbals: Turmeric 1 capsule daily (not sure of dose, maybe 17mg? Not sure why she takes it) Biotin 800mcg daily Vitamin C 500mg daily Zinc 30mg daily Purdentix supplement daily - for healthy teeth and gums Sugar Reverse supplement daily (sublingual tab, 60mg) JOANNA supplement as needed for constipation Exam: [facility] 12/30/2021 (Approximate) Last 3 Encounter BP Readings: Date: BP: 05/24/2024 139/70 05/02/2024 162/90 05/01/2024 154/90 Wt: 71.7 kg (158 lb) BMI: 24.80 kg/(m^2) LABS: Reviewed Lab Results Component Value Date HBA1C 18.0 05/02/2024 HBA1C 8.9 12/22/2022 HBA1C 15.3 08/26/2022 HBA1C 7.6 09/10/2021 HBA1C 7.6 09/10/2021 HBA1C 8.4 12/10/2020 HBA1C 10.5 09/11/2020 HBA1C 11.1 08/22/2020 CMP: Glucose 515 07/29/2024 BUN 19 07/29/2024 Creatinine 0.99 07/29/2024 Sodium 129 07/29/2024 Potassium 4.8 07/29/2024 Chloride 91 07/29/2024 CO2 26 07/29/2024 Protein, Total 7.3 07/29/2024 Albumin 3.8 07/29/2024 Calcium 9.6 07/29/2024 Alkaline Phosphatase 99 07/29/2024 Bilirubin, Total 0.2 07/29/2024 AST 31 07/29/2024 ALT 37 07/29/2024 eGFR 69 CrCl 64-75 mL/min depending on BW used Lab Results Component Value Date CHOL 118 05/02/2024 CHOL 101 12/10/2020 LDL 53 05/02/2024 LDL 49 12/10/2020 HDL 58 05/02/2024 HDL 41 12/10/2020 TG 34 05/02/2024 TG 53 12/10/2020 The ASCVD Risk score (Yobani VERDUZCO, et al., 2019) failed to calculate for the following reasons: The valid total cholesterol range is 130 to 320 mg/dL Unable to determine if patient is Non- Albumin/Creat Ratio (mg/g) Date Value 08/26/2022 303 (H) PHARMACOTHERAPY ASSESSMENT/PLAN: 1. 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 She stated the toscano would be affordable and is agreeable to documenting FBG daily. Counseled on s/sx of high and low sugar and management - HEMOGLOBIN A1C - ALBUMIN/CREATININE RATIO, URINE 2. Medication management - ICD9: V58.69, ICD10: Z79.899 Reviewed all medications, indications, dosing, frequency, administration with patient. Medication list updated as described above. Refill: patient requesting refill of carvedilol. Reports needing to make a f/up appt, but last refill was made for only a 15 day supply. Will forward a refill request to PCP. Advised pt to call office to schedule a f/up appt with PCP for this summer. Hospitalization from winter 2024 showed heart failure, EF 40-45% per PCP notes. Currently only taking 1 pillar medication for HF: carvedilol. Was on Entresto but ran out of refills and reports not being able to get refilled until sees tail ripper. Farxiga not affordable and pt not eligible for PAP. Pt is not taking spironolactone but should be restarted --> will consider at f/up appt and havept get repeat labs. Pt needs cardiology f/up so advised her to call office today to request refill and get an appt scheduled for f/up. Pt agreed to do so. Pantoprazole doesn't have a listed indication. Advised pt to discuss the necessity of this medication at an upcoming visit with PCP. Urged to NOT stop this medication due to possible rebound reflux. Health Maintenance - Diabetes Topic Date Due Dilated Retinal Exam 03/29/2019 Urine Albumin:Creatinine Ratio 08/27/2023 Diabetic Foot Exam 12/24/2023 HbA1C 07/31/2024 Follow-up Patient is not scheduled to see PCP team. Patient to have f/up with PharmD team on 10/21. Patient verbalized understanding of instructions. Obed Hernandez PharmD, BCPS Primary Care Clinical Pharmacist Time spent: 65 mins documented in this encounterLouis [facility]06-23-2025 NoteHNO ID: [id number] Author: OBED HERNANDEZ RPh Service: ? Author Type: Pharmacist Type: Progress Notes Filed: 10/07/2024 21:23 Note Text: Primary Care Pharmacy Visit CC (Reason for Consult): Diabetes (E11.3293, Z79.4) Type 2 diabetes mellitus with both eyes affected by mild nonproliferative retinopathy without macular edema, with long-term current use of insulin ([facility]) (primary encounter diagnosis) Goal: A1c < 7% Last Collaborating Provider Visit: 05/24/24 Mariella Ramirez is a 54 year old female presenting for initial visit: This initial consult was conducted telephone call with the patient where the consult agreement was explained. The patient may decline or cancel the agreement at any time. After consideration, the patient consented to the pharmacy consult agreement and agreed to allow medications be collaboratively managed by a pharmacist. Interim Events: 05/24: Hospital f/up; Pt was seen in office on 05/02 and reported that she stopped all medication and trying to use natural remedies. After getting lab work (hgA1c 18, BNP 8555, and hgb of 6.8) she was sent to ER for admission. [facility] admission on 05/03 managed anemia by iron infusions and GI performed upper and lower endoscopies with unremarkable findings. Pt is Anabaptism so no blood was given. She was discharged. Then pt went to [facility] ER on 05/09 d/t BLE edema and dyspnea. BNP was > 82332, trop was negative. No infectious etiology. Hgb was 6.7. ECHO with EF of 40-45%. Seen by CHF team and stated on lasix drip. Sent home on 40 mg lasix daily. Also started on Entresto. Referred to pharmacy team HPI: Reports she had an issue with her insurance and she wasn't able to get the proper care that she needed. She stated the problem has been fixed. 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 Still without insurance but can get to [facility] appointments. States assistance started about 2 weeks ago. Her work has a medication reimbursement plan, but only reimburses up to $1200/year. Has tried applying to Medicaid in the past (applied earlier in 2024) but was told that income is too high. She does not qualify for PAP programs because income is too high. Reports diabetes control was very bad according to last labs. Doesn't have a glucometer to check her sugars. [facility] was going to get her a meter but she couldn't get one. 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 Denies thirst issues recently. Said she did used to want water constantly, but now since intentionally drinking more water during the day she is not having issues with thirst or dry mouth. Did have a lot of frequent urination but no longer an issue. States she started to feel better after winter. No vision changes. No CP, Shortness of Breath, palpitations, severe BARRON. States she had been in the hospital twice. States she has tried to learn from what they did in the hospital (with eating and drinking water) so she is feeling better now that she has been making some changes. 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 Sleeps from 7 AM - noon or 3 PM. Current DM Medications: Dapagliflozin (Farxiga) 5mg daily (not taking) Insulin glargine (Lantus) 30 units once daily QHS (taking Basaglar) Insulin lispro (Humalog) 12 units TID (not taking) Preventative Medications: On STEFFI/ARB: Yes On Statin: Yes ROS: Patient denies CP, SOB, BARRON, blurred vision, dizziness or lightheadedness Patient denies symptoms of hypoglycemia (sweating, anxiety, palpitations, hunger, and tremor) Patient denies symptoms of hyperglycemia (polyuria, polydipsia, polyphagia) Patient denies potential medication adverse effects DIET/EXERCISE/SOCIAL Hx: Reports improved diet and drinking more water since winter hospitalization. Not enough time to discuss specifics. MEDICATIONS: Pill bottles are present. Adherence: denies missed doses. Pharmacy: [facility] [address] [place] [id number] [id number] [facility] [phone] [facility] Rx coverage: No coverage found. Medications affordable? No - brands are expensive Diabetes Supplies: No Organization system: ACTIVE PROBLEM LIST Hidradenitis Overweight (Bmi 25.0-29.9) DM (diabetes mellitus), type 2, uncontrolled, with renal complications (HCC) Essential Hypertension Abnormal Finding On Breast Imaging Fat Necrosis (Segmental) of Breast Constipation Hld (Hyperlipidemia) Type 2 Diabetes Mellitus With Both Eyes Affected By Mild Nonproliferative Retinopathy Without Macular Edema, With Long-Term Current Use of Insulin (Hcc) PAST MEDICAL HISTORY Diagnosis Date Constipation Coronary artery disease Diabetes mellitus without mention of complication Diabetes mellitus, gestational with last Hyperlipemia Hypertension Uncontrolled type 2 DM with proteinuria or microalbuminuria 07/04/2012 Past medical history reviewed. ALLERGIES Allergen Reactions Steffi Inhibito (more content not included)...[facility]06-19-2025 Telephone encounter Note* Telephone Encounter - Gi Mae LPN - 10/03/2024 8:25 AM EDT Letter sent to pts home address. [facility]06-19-2025 Miscellaneous Notes* Telephone Encounter - Gi Mae LPN - 10/03/2024 8:25 AM EDT Letter sent to pts home address. * Telephone Encounter - Gerber Pina DO - 10/02/2024 8:12 PM EDT Agree with letter to patient Printed today to send to patient Gerber Pina DO * Telephone Encounter - Wendy Johnson RN - 10/02/2024 6:12 PM EDT Discussed pt with management to make them aware. Attempted to call pt again to discuss with her concerns of provider and staff and risks to herself. Pt did not answer. Left msg to return the call to discuss keeping upcoming appts and to reschedule appt with Mag Valdez that pt missed. Pt is only financially cleared until 12/23/24 at this time. No answer. LM to return the call. Letter typed up for Dr. Pina review and signature notifying pt of need to keep appointments andto follow up with her medical care and that pt is at major risk of sudden and complications due to not taking care of her diabetes and medical concerns. * Telephone Encounter - Gerber Pina DO - 10/01/2024 5:12 PM EDT We need to send a letter to patient regarding all her no showed appointments and concerns that she has major risk of sudden and complications due to not taking care of her diabetes and medical concerns Gerber Pina DO * Telephone Encounter - Wendy Johnson RN - 10/01/2024 2:16 PM EDT Pt failed to show for her appt on 09/26 with Mag Valdez. She has an appt on 10/02 for mammogram, an appt with pharmacy for her diabetes on 10/07 and appt 11/22 with Endo. Not sure what more we can do for pt as she is continuing to no show for appts. Pt is going to need refills again on meds in October as she was only given 30 day supplies on 09/23/24. Other meds were refilled in May 2024 for 6 months. How would provider like to proceed? * Telephone Encounter - Arlet Stovall MA - 09/25/2024 2:17 PM EDT Patient scheduled 11/22 with LAQUITA Stovall MA * Telephone Encounter - Wendy Johnson RN - 09/24/2024 4:25 PM EDT Pt failed to show for her Endo appt today. Pss who scheduled had asked pt several times about making it to the appt today. Called and spoke with pt. She states she had taken a sedative, fell asleep and slept through her alarm. Pt called in when she woke up and called to jennifer appt which is now 11/22.Encouraged pt that she really needs to make these appts as we need to get her back on track with her medications and her health. Pt verbalizes understanding. * Telephone Encounter - Wendy Johnson RN - 09/24/2024 11:13 AM EDT Per Perla Malagon, pt is financially cleared at 100%. Called and spoke with pt and notified. Scheduled appt with Mag Valdez for 40 min follow up. Pt has phone call appt with pharmacy on 10/07, mammogram on 10/02, and appt with Endo today September 24. * Telephone Encounter - Wendy Johnson RN - 09/24/2024 8:27 AM EDT Called and spoke with pt who states she cancelled her Yu insurance but doesn't qualify for [facility] financial assistance. Unable to schedule any appointments for pt. Will have Perla Malagon financial counselor confirm the above. Pt encouraged to check with her HR dept at work to see if she qualifies for in surance there, check to see if she qualifies for Medicaid and to check with [facility]. Pt seems to think that all of these places will deny her. Explained to her that she needs to check with all of them to confirm that. Pt seems reluctant to call. States she was asking for 90 day supply on meds until she can find a provider. Explained to pt that we need to figure something out as she is going to be out of meds and we cannot keep prescribing without seeing her. Pt verbalizes understanding of this. Pt already spoke with our Epic Cadence Analyst Irma as well. * Telephone Encounter - Gerber Pina DO - 09/23/2024 7:11 AM EDT She really needs to be seeing an Topper Packer as well as a Pharmacist to help with medication review She is not taking her medications as prescribed and not doing as she is told to take care of herself. She is at very high risk of complications from diabetes and heart disease Gerber Pina DO * Telephone Encounter - Wendy Johnson RN - 09/19/2024 12:11 PM EDT Please review entire note below. Pt called in last evening wanting to know her last HgbA1c which was 18.0 in April of 2024 and last blood sugar was 515 off of a CMP done in July of 2024. Pt calledin as she states she is not feeling well and knows she needs to take better care of herself. Most of the meds that pt is requesting were previously ordered by cardiology when she was admitted in [facility]. Pt had called on 06/12/24 needing refills and scripts were approved by [place] [facility]. Pt was given 30 day supplies with refills. Pt calling today wanting 90 day supplies. During conversation with pt last evening, mentioned to pt that we cannot be ordering medications without seeing her. And also pt has never followed up with the tail ripper anywhere at [facility] or with [facility]. Hot Stick Man has pt on other medications as well and pt unsure if she is taking them. Pt is currently not taking her meds as directed. After discussion with pt last evening, she thought maybe she would start taking her meds again and stop the natural approach. See notes from social service liaison below. Pt is non-compliant and appears not to be accepting of help or advice. * Telephone Encounter - Melly Colindres RN - 09/19/2024 10:51 AM EDT Patient is calling for 90 day refills on medication requesting medications to be sent to [facility]. See note below regarding appointments. * Telephone Encounter - Irma Siu MSW - 09/19/2024 10:41 AM EDT Sw called patient to discuss options and or calling [employer] to cancel. Patient notes that she did call and cancel [employer] plan, but was then told that she is over income for our assistance. Tito noted [facility] Castrozman could be an option right now, until she is able to work out [employer]place innetwork plan. Patients states I don't want to talk about this right now. Sw noted patient can always reach backout to Tito when she would like to discuss options further. Call was then disconnected. * Telephone Encounter - Irma Siu MSW - 09/19/2024 10:33 AM EDT Perla had noted Yu Marketplace plan is out of network with CC. Would need to change plan through the [employer] Call Center. * Telephone Encounter - Irma Siu MSW - 09/19/2024 8:26 AM EDT Sw will give patient a call after speaking with [facility]. If Yu Marketplace insurance is active. Would need to see provider in network. [facility] would be a good place to see about assistance with healthcare needs as they have Maria Elena-Flight Surgeon there that could help patient with financial support needs. Tito will confirm with [facility] if Yu is still active,and if so, will see what patient says in regards to speaking with [facility]. Maria Elena could also see about assisting patient with possibly locating a new Marketplace plan, if interested, and if at this time she could enroll in a different plan. * Telephone Encounter - Gerber Pina DO - 09/18/2024 8:28 PM EDT Noted, this is something I am forwarding to social work for suggestions on how to help her as well Gerber Pina DO * Telephone Encounter - Wendy Johnson RN - 09/18/2024 5:46 PM EDT Spent almost 40 mins on the phone with pt. She said several times that she has no insurance and is ineligible for financial assistance with [facility] because she makes too much $. Pt wanting to know what her last HgbA1c was. Last one drawn that we have record on was 05/02/24 and result was 18.0. Pt ended up in the hospital 05/03/24 and was in for 2 weeks. Pt states she has outstanding bills at [facility] so [facility] won't see her. Pt with multiple health issues. Pt crying off and on during conversation because she states she doesn't feel good. Last blood sugar on 07/29/24 was 515. Pt was to see Dr. Pina on 08/14 but failed to come in for the appt. Pt states she has a lot of stuffgoing on in her life. Asked pt if she has spoken to billing office at [facility]. She denies speaking withthem. Pt given billing dept phone number for [facility] so she can talk with them and get payments up to date so she can see tail ripper since she is on blood thinner. Talked with pt about her medications.She states she is taking them all but then when discussed Lisinopril and some of the other meds pres cribed by [facility], she states she isn't taking those because the office won't refill her meds without an appt and she can't get in for a couple months. Pt states she is taking her insulinbut when questioned, she states that she ran out of her insulin glargine (Lantus) so she went back to using her insulin lispro (Humalog). Last script was sent 3 years ago. Pt states that yes she has had the insulin in her refrigerator for several years. But states the outdate on the pen is 04/2025. Pt is taking the Humalog since she is out of the Lantus and can't afford it. Pt states she has no way of taking her blood sugar as she never picked up her Freestyle Jacque. When asked, pt has not spoken to the pharmacy to see how they can help her get her medications and a meter or sensor. Encouragedpt to speak with them. Also spoke with pt about going to [facility] if need be. She says they couldn't help her either. When questioned further, she admits to not speaking with them for a few years. Informed pt that she must help herself. Per several areas, [facility] has attempted to get a hold of her but pt doesn't answer and either didn't have VM set up or VM is full. Informed pt that in order to help her, she needs to answer her phone. Informed pt that she needs to get medical care and if feels bad or something urgent happens, she will have to call 911 or go to ER and worry about finances later. Informed what high blood sugar can do to her body. Msg sent to Perla Malagon financial counselor to follow up with pt but per FYIs, pt had called in and spoke with them twice already today and per those FYI notes, it appears pt does have Yu insurance but [facility] does not accept that. Pt also stated to someone that she is looking into a different market place insurance andwill call back once it is active. Will route this msg to Epic Cadence Analyst as well to see if there is any resources she may know for pt. documented in this encounterLouis Stokes [facility]06-18-2025 Telephone encounter Note * Telephone Encounter - Gerber Pina DO - 10/02/2024 8:12 PM EDT Agree with letter to patient Printed today to send to patient Gerber Pina DO [facility]06-18-2025 Telephone encounter Note* Telephone Encounter - Wendy Johnson RN - 10/02/2024 6:12 PM EDT Discussed pt with management to make them aware. Attempted to call pt again to discuss with her concerns of provider and staff and risks to herself. Pt did not answer. Left msg to return the call to discuss keeping upcoming appts and to reschedule appt with Mag Valdez that pt missed. Pt is only financially cleared until 12/23/24 at this time. No answer. LM to return the call. Letter typed up for Dr. Pina review and signature notifying pt of need to keep appointments andto follow up with her medical care and that pt is at major risk of sudden and complications due to not taking care of her diabetes and medical concerns. [facility]06-17-2025 Telephone encounter Note* Telephone Encounter - Gerber Pina DO - 10/01/2024 5:12 PM EDT We need to send a letter to patient regarding all her no showed appointments and concerns that she has major risk of sudden and complications due to not taking care of her diabetes and medical concerns Gerber Pina DO [facility]06-17-2025 Telephone encounter Note* Telephone Encounter - Wendy Johnson RN - 10/01/2024 2:16 PM EDT Pt failed to show for her appt on 09/26 with Mag Valdez. She has an appt on 10/02 for mammogram, an appt with pharmacy for her diabetes on 10/07 and appt 11/22 with Endo. Not sure what more we can do for pt as she is continuing to no show for appts. Pt is going to need refills again on meds in October as she was only given 30 day supplies on 09/23/24. Other meds were refilled in May 2024 for 6 months. How would provider like to proceed? [facility]06-11-2025 Telephone encounter Note* Telephone Encounter - Arlet Stovall MA - 09/25/2024 2:17 PM EDT Patient scheduled 11/22 with ENDO Arlet Stovall MA [facility]06-10-2025 Telephone encounter Note* Telephone Encounter - Wendy Johnson RN - 09/24/2024 4:25 PM EDT Pt failed to show for her Endo appt today. Pss who scheduled had asked pt several times about making it to the appt today. Called and spoke with pt. She states she had taken a sedative, fell asleep and slept through her alarm. Pt called in when she woke up and called to jennifer appt which is now 11/22.Encouraged pt that she really needs to make these appts as we need to get her back on track with her medications and her health. Pt verbalizes understanding. [facility]06-10-2025 Telephone encounter Note* Telephone Encounter - Wendy Johnson RN - 09/24/2024 11:13 AM EDT Per Perla Malagon, pt is financially cleared at 100%. Called and spoke with pt and notified. Scheduled appt with Mag Valdez for 40 min follow up. Pt has phone call appt with pharmacy on 10/07, mammogram on 10/02, and appt with Endo today September 24. [facility]06-10-2025 Telephone encounter Note* Telephone Encounter - Wendy Johnson RN - 09/24/2024 8:27 AM EDT Called and spoke with pt who states she cancelled her Yu insurance but doesn't qualify for [facility] financial assistance. Unable to schedule any appointments for pt. Will have Perla Malagon financial counselor confirm the above. Pt encouraged to check with her HR dept at work to see if she qualifies for in surance there, check to see if she qualifies for Medicaid and to check with [facility]. Pt seems to think that all of these places will deny her. Explained to her that she needs to check with all of them to confirm that. Pt seems reluctant to call. States she was asking for 90 day supply on meds until she can find a provider. Explained to pt that we need to figure something out as she is going to be out of meds and we cannot keep prescribing without seeing her. Pt verbalizes understanding of this. Pt already spoke with our Epic Cadence Analyst Irma as well. [facility]06-09-2025 Telephone encounter Note* Telephone Encounter - Gerber Pina DO - 09/23/2024 7:11 AM EDT She really needs to be seeing an Topper Packer as well as a Pharmacist to help with medication review She is not taking her medications as prescribed and not doing as she is told to take care of herself. She is at very high risk of complications from diabetes and heart disease Gerber Pina DO [facility]06-05-2025 Telephone encounter Note* Telephone Encounter - Wendy Johnson RN - 09/19/2024 12:11 PM EDT Please review entire note below. Pt called in last evening wanting to know her last HgbA1c which was 18.0 in April of 2024 and last blood sugar was 515 off of a CMP done in July of 2024. Pt calledin as she states she is not feeling well and knows she needs to take better care of herself. Most of the meds that pt is requesting were previously ordered by cardiology when she was admitted in [facility]. Pt had called on 06/12/24 needing refills and scripts were approved by Jamaica Mireles. Pt was given 30 day supplies with refills. Pt calling today wanting 90 day supplies. During conversation with pt last evening, mentioned to pt that we cannot be ordering medications without seeing her. And also pt has never followed up with the tail ripper anywhere at [facility] or with [facility]. Hot Stick Man has pt on other medications as well and pt unsure if she is taking them. Pt is currently not taking her meds as directed. After discussion with pt last evening, she thought maybe she would start taking her meds again and stop the natural approach. See notes from social service liaison below. Pt is non-compliant and appears not to be accepting of help or advice. [facility]06-05-2025 Telephone encounter Note* Telephone Encounter - Melly Colindres RN - 09/19/2024 10:51 AM EDT Patient is calling for 90 day refills on medication requesting medications to be sent to [facility]. See note below regarding appointments. [facility]06-05-2025 Telephone encounter Note* Telephone Encounter - Melly Colindres RN - 09/19/2024 10:44 AM EDT Opened in Error [facility]06-05-2025 Miscellaneous Notes* Telephone Encounter - Melly Colindres RN - 09/19/2024 10:44 AM EDT Opened in Error documented in this encounterLouis [facility]06[facility] Telephone encounter Note * Telephone Encounter - Irma Siu MSW - 09/19/2024 10:41 AM EDT Sw called patient to discuss options and or calling [employer] to cancel. Patient notes that she did call and cancel [employer] plan, but was then told that she is over income for our assistance. Sw noted [facility] could be an option right now, until she is able to work out [employer] innetwork plan. Patients states I don't want to talk about this right now. Sw noted patient can always reach backout to when she would like to discuss options further. Call was then disconnected. [facility]06-05-2025 Telephone encounter Note* Telephone Encounter - Irma Siu MSW - 09/19/2024 10:33 AM EDT Perla had noted Yu [employer] plan is out of network with [facility]. Would need to change plan through the [employer] Call Center. [facility]06-05-2025 Telephone encounter Note* Telephone Encounter - Irma Siu MSW - 09/19/2024 8:26 AM EDT Sw will give patient a call after speaking with [facility]. If Yu [employer] insurance is active. Would need to see provider in network. [facility] would be a good place to see about assistance with healthcare needs as they have Maria Elena-Flight Surgeon there that could help patient with financial support needs. Sw will confirm with [facility] if Yu is still active,and if so, will see what patient says in regards to speaking with [facility]. Maria Elena could also see about assisting patient with possibly locating a new [employer] plan, if interested, and if at this time she could enroll in a different plan. [facility]06-04-2025 Telephone encounter Note* Telephone Encounter - Gerber Pina DO - 09/18/2024 8:28 PM EDT Noted, this is something I am forwarding to social work for suggestions on how to help her as well Gerber Pina DO [facility]06-04-2025 Telephone encounter Note* Telephone Encounter - Wendy Johnson RN - 09/18/2024 5:46 PM EDT Spent almost 40 mins on the phone with pt. She said several times that she has no insurance and is ineligible for financial assistance with [facility] because she makes too much $. Pt wanting to know what her last HgbA1c was. Last one drawn that we have record on was 05/02/24 and result was 18.0. Pt ended up in the hospital 05/03/24 and was in for 2 weeks. Pt states she has outstanding bills at [facility] so [facility] won't see her. Pt with multiple health issues. Pt crying off and on during conversation because she states she doesn't feel good. Last blood sugar on 07/29/24 was 515. Pt was to see Dr. Pina on 08/14 but failed to come in for the appt. Pt states she has a lot of stuffgoing on in her life. Asked pt if she has spoken to billing office at [facility]. She denies speaking withthem. Pt given billing dept phone number for [facility] so she can talk with them and get payments up to date so she can see tail ripper since she is on blood thinner. Talked with pt about her medications.She states she is taking them all but then when discussed Lisinopril and some of the other meds pres cribed by [facility], she states she isn't taking those because the office won't refill her meds without an appt and she can't get in for a couple months. Pt states she is taking her insulinbut when questioned, she states that she ran out of her insulin glargine (Lantus) so she went back to using her insulin lispro (Humalog). Last script was sent 3 years ago. Pt states that yes she has had the insulin in her refrigerator for several years. But states the outdate on the pen is 04/2025. Pt is taking the Humalog since she is out of the Lantus and can't afford it. Pt states she has no way of taking her blood sugar as she never picked up her Freestyle Jacque. When asked, pt has not spoken to the pharmacy to see how they can help her get her medications and a meter or sensor. Encouragedpt to speak with them. Also spoke with pt about going to [facility] if need be. She says they couldn't help her either. When questioned further, she admits to not speaking with them for a few years. Informed pt that she must help herself. Per several areas, [facility] has attempted to get a hold of her but pt doesn't answer and either didn't have VM set up or VM is full. Informed pt that in order to help her, she needs to answer her phone. Informed pt that she needs to get medical care and if feels bad or something urgent happens, she will have to call 911 or go to ER and worry about finances later. Informed what high blood sugar can do to her body. Msg sent to Perla Malagon financial counselor to follow up with pt but per FYIs, pt had called in and spoke with them twice already today and per those FYI notes, it appears pt does have Yu insurance but [facility] does not accept that. Pt also stated to someone that she is looking into a different market place insurance andwill call back once it is active. Will route this msg to Epic Cadence Analyst as well to see if there is any resources she may know for pt. [facility]04-23-2025 Telephone encounter Note* Telephone Encounter - Melly Colindres RN - 08/07/2024 11:29 AM EDT Patient has appointment with PCP on 08/14/2024. Melly Colindres RN [facility]04-23-2025 Miscellaneous Notes* Telephone Encounter - Melly Colindres RN - 08/07/2024 11:29 AM EDT Patient has appointment with PCP on 08/14/2024. Melly Colindres RN * Telephone Encounter - Alexandria Ryan MA - 08/01/2024 1:39 PM EDT Message left for return call. Alexandria Ryan MA * Telephone Encounter - Jamaica Mireles APRN.TIFFANIE - 08/01/2024 11:47 AM EDT I only refilled Entresto from hospital follow-up for enough to get her through to cardiology appointment. Needs to make cards appointment. Looks like from below notes that she never even picked up this medication from May when I set it in. If a provider told her to discontinue or hold the Entresto then she needs recommendation from that provider on whether to restart. Thank you, Jamaica Mireles APRN.CAT CRACKER OPERATOR * Telephone Encounter - Trinity Deluna RN - 08/01/2024 11:23 AM EDT Patient calling back in for request for refill of Entresto. (See note below also). Reports it was last reordered by Jamaica Mireles CNP and asking if provider would reorder it again. Pt states she hasbeen out of the medication and is starting to feel the effects from not taking it. Please call patient back with an update. Trinity Deluna RN * Telephone Encounter - Melly Colindres RN - 08/01/2024 10:11 AM EDT Patient calls back and notified of below. Patient states that she does not see a tail ripper. Patient reports that she was prescribed this while she was [facility]. [facility] Patient had hospital follow up visit with Jamaica on 05/24/2024. Patient was supposed to follow up with cardiology 2 weeks after discharge (Dr. Fabienne Alan). Patient did not follow up with cardiology. Please review and advise, Melly Colindres RN] * Telephone Encounter - Gerber Pina DO - 07/31/2024 10:47 PM EDT Entresto is a cardiac medication prescribed by Hot Stick Man, needs to ask her specialist about this Gerber Pina DO * Telephone Encounter - Xiomy Gutiérrez RN - 07/31/2024 12:38 PM EDT Patient calls back. Pharmacy consult scheduled for 08/05/2024. Patient asking if the Entresto should be started back up. She thought if her potassium was within limits then it would be started again . I didn't see any notes saying she shouldn't have been taking it? Call placed to [facility]. Patient hasn't filled prescription of Estresto since sent to Pharmacy 06/12/2024. Please advise Also, requesting another prescription of pantoprazole to go to the pharmacy as she has misplaced hers. Patient has refills at pharmacy. Notified to contact pharmacy as she might have to pay out of pocket since insurance won't allow refill. [facility] to refill Pantoprazole from prescription on File. Patient will have to pay out of pocket through [facility]. Cost will be $15.66. Patient notified. Xiomy Gutiérrez RN * Telephone Encounter - Melly Bentley - 07/31/2024 9:26 AM EDT 1st attempt - Left message for patient to return call. When patient calls, please schedule pharmacyconsult. * Telephone Encounter - Gerber Pina DO - 07/30/2024 4:59 PM EDT Please set her up an appt with the pharmacist Gerber Pina DO * Telephone Encounter - Melly Colindres RN - 07/30/2024 3:53 PM EDT Patient calls back and states that she does not eat well. Patient reports that she does not take Humalog because she does not want her sugars to bottom out. Patient does take Lantus but only when sheeats. Patient take 30 units of Lantus at bedtime. Patient reports that she started Farxiga a coupleof weeks ago again. Patient reports that she could not afford medication. Patient states that she ta kes an all natural medication called Sugar Release. Please review and advise, Melly Colindres RN * Telephone Encounter - Melly Colindres RN - 07/30/2024 11:32 AM EDT TC patient, left message for patient to call back and speak with a triage nurse regarding results and provider instructions. Melly Colindres RN * Telephone Encounter - Cecy Barboza APRN.CNP - 07/30/2024 10:31 AM EDT It looks like this is not uncommon for patient. Please call her to see how she is feeling. I see she is already scheduled to see Dr. Pina at the end of the month. Is she taking the prescribed Farxiga, Humalog, and Lantus that are on her medication list and taking them correctly? Any other medications she may be taking for her DM? Cecy Barboza APRN.TIFFANIE * Telephone Encounter - Melly Colindres RN - 07/30/2024 10:24 AM EDT Miracle from [facility] calls with an urgent lab value. Glucose level is 515. documented in this encounterLouis Stokes [facility]04-21-2025 Telephone encounter Note * Telephone Encounter - Obed Hernandez [facility] - 08/05/2024 9:19 AM EDT Called patient for scheduled phone encounter. Unable to reach x 3 - call goes straight to voicemail, however the voicemail box is not set up yet so unable to leave a message. I also tried calling thework phone number but the person/tipple engineer who answered the phone didn't know a Mariella Ramirez. MyChart is not active. Will see if PSS team is able to reach patient. Obed Hernandez PharmD, [facility] Primary Care Clinical Pharmacist [facility] Work Phone: [phone]) [phone] Miscellaneous Notes* Telephone Encounter - Obed Hernandez RPh - 08/05/2024 9:19 AM EDT Called patient for scheduled phone encounter. Unable to reach x 3 - call goes straight to voicemail, however the voicemail box is not set up yet so unable to leave a message. I also tried calling thework phone number but the person/tipple engineer who answered the phone didn't know a Mariellajustine Ramirez. MyChart is not active. Will see if PSS team is able to reach patient. Obed Hernandez PharmD, [facility] Primary Care Clinical Pharmacist documented in this encounterLouis Stokes [facility]04-17-2025 Telephone encounter Note * Telephone Encounter - Alexandria Ryan MA - 08/01/2024 1:39 PM EDT Message left for return call. Alexandria Ryan MA [facility]04-17-2025 Telephone encounter Note* Telephone Encounter - Jamaica Mireles APRN.TIFFANIE - 08/01/2024 11:47 AM EDT I only refilled Entresto from hospital follow-up for enough to get her through to cardiology appointment. Needs to make cards appointment. Looks like from below notes that she never even picked up this medication from May when I set it in. If a provider told her to discontinue or hold the Entresto then she needs recommendation from that provider on whether to restart. Thank you, Jamaica Mireles APRN.CAT CRACKER OPERATOR [facility]04-17-2025 Telephone encounter Note* Telephone Encounter - Trinity Deluna RN - 08/01/2024 11:23 AM EDT Patient calling back in for request for refill of Entresto. (See note below also). Reports it was last reordered by Jamaica Mireles CNP and asking if provider would reorder it again. Pt states she hasbeen out of the medication and is starting to feel the effects from not taking it. Please call patient back with an update. Trinity Deluna RN [facility]04-17-2025 Telephone encounter Note* Telephone Encounter - Melly Colindres RN - 08/01/2024 10:11 AM EDT Patient calls back and notified of below. Patient states that she does not see a tail ripper. Patient reports that she was prescribed this while she was [facility]. [facility] Patient had hospital follow up visit with Jamaica on 05/24/2024. Patient was supposed to follow up with cardiology 2 weeks after discharge (Dr. Fabienne Alan). Patient did not follow up with cardiology. Please review and advise, Melly Colindres RN] [facility]04-16-2025 Telephone encounter Note* Telephone Encounter - Gerber Pina DO - 07/31/2024 10:47 PM EDT Entresto is a cardiac medication prescribed by Hot Stick Man, needs to ask her specialist about this Gerber Pina DO [facility]04-16-2025 Telephone encounter Note* Telephone Encounter - Xiomy Gutiérrez, BOYD - 07/31/2024 12:38 PM EDT Patient calls back. Pharmacy consult scheduled for 08/05/2024. Patient asking if the Entresto should be started back up. She thought if her potassium was within limits then it would be started again . I didn't see any notes saying she shouldn't have been taking it? Call placed to [facility]. Patient hasn't filled prescription of Estresto since sent to Pharmacy 06/12/2024. Please advise Also, requesting another prescription of pantoprazole to go to the pharmacy as she has misplaced hers. Patient has refills at pharmacy. Notified to contact pharmacy as she might have to pay out of pocket since insurance won't allow refill. [facility] to refill Pantoprazole from prescription on File. Patient will have to pay out of pocket through [facility]. Cost will be $15.66. Patient notified. Xiomy Gutiérrez, RN [facility]04-16-2025 Telephone encounter Note* Telephone Encounter - Trinity Briseno - 07/31/2024 10:21 AM EDT Spoke with the patient unable to arrange appointment due to insurance being OON will send to [facility] todiscuss. [facility]04-16-2025 Miscellaneous Notes* Telephone Encounter - Trinity Briseno - 07/31/2024 10:21 AM EDT Spoke with the patient unable to arrange appointment due to insurance being OON will send to [facility] todiscuss. * Telephone Encounter - Lisa Gomez RN - 07/31/2024 10:13 AM EDT Pt returned call and given provider's message below with verbalized understanding. Pt agreeable. Transferred to pss. * Telephone Encounter - Gi Mae LPN - 07/31/2024 9:15 AM EDT Left message to return call. * Telephone Encounter - Jamaica Mireles APRN.CAT CRACKER OPERATOR - 07/31/2024 8:43 AM EDT Please call patient and let her know: I see Cecy and Dr. Pina already addressed the severely elevated blood glucose level. I agreeand recommend pharmacy appointment ANGELIA -- I don't see this scheduled yet. Please help schedule. I will forward the rest of result to Dr. Pina for appointment at the end of the month. No other acute concerns. Hemoglobin greatly improved from prior. Thank you, Jamaica Mireles APRN.CAT CRACKER OPERATOR documented in this encounterLouis Stokes [facility]04-16-2025 Telephone encounter Note * Telephone Encounter - Lisa Gomez RN - 07/31/2024 10:13 AM EDT Pt returned call and given provider's message below with verbalized understanding. Pt agreeable. Transferred to pss. [facility]04-16-2025 Telephone encounter Note* Telephone Encounter - Melly Bentley - 07/31/2024 9:26 AM EDT 1st attempt - Left message for patient to return call. When patient calls, please schedule pharmacyconsult. [facility]04-16-2025 Telephone encounter Note* Telephone Encounter - Gi Mae LPN - 07/31/2024 9:15 AM EDT Left message to return call. [facility]04-16-2025 Telephone encounter Note* Telephone Encounter - Jamaica Mireles APRN.TIFFANIE - 07/31/2024 8:43 AM EDT Please call patient and let her know: I see Cecy and Dr. Pina already addressed the severely elevated blood glucose level. I agreeand recommend pharmacy appointment ANGELIA -- I don't see this scheduled yet. Please help schedule. I will forward the rest of result to Dr. Pina for appointment at the end of the month. No other acute concerns. Hemoglobin greatly improved from prior. Thank you, Jamaica Mireles APRN.CAT CRACKER OPERATOR [facility]04-15-2025 Telephone encounter Note* Telephone Encounter - Gerber Pina DO - 07/30/2024 4:59 PM EDT Please set her up an appt with the pharmacist Gerber Pina DO [facility]04-15-2025 Telephone encounter Note* Telephone Encounter - Melly Colindres RN - 07/30/2024 3:53 PM EDT Patient calls back and states that she does not eat well. Patient reports that she does not take Humalog because she does not want her sugars to bottom out. Patient does take Lantus but only when sheeats. Patient take 30 units of Lantus at bedtime. Patient reports that she started Farxiga a coupleof weeks ago again. Patient reports that she could not afford medication. Patient states that she ta kes an all natural medication called Sugar Release. Please review and advise, Melyl Colindres RN [facility]04-15-2025 Telephone encounter Note* Telephone Encounter - Melly Colindres RN - 07/30/2024 11:32 AM EDT TC patient, left message for patient to call back and speak with a triage nurse regarding results and provider instructions. Melly Colindres RN [facility]04-15-2025 Telephone encounter Note* Telephone Encounter - Cecy Barboza APRN.TIFFANIE - 07/30/2024 10:31 AM EDT It looks like this is not uncommon for patient. Please call her to see how she is feeling. I see she is already scheduled to see Dr. Pina at the end of the month. Is she taking the prescribed Farxiga, Humalog, and Lantus that are on her medication list and taking them correctly? Any other medications she may be taking for her DM? Cecy Barboza APRN.CAT CRACKER OPERATOR [facility]04-15-2025 Telephone encounter Note* Telephone Encounter - Melly Colindres RN - 07/30/2024 10:24 AM EDT Miracle from [facility] Services calls with an urgent lab value. Glucose level is 515. [facility]04-11-2025 Telephone encounter Note* Telephone Encounter - Melly Colindres RN - 07/26/2024 3:54 PM EDT Patient calls to see the status of this request. Patient states that she now has financial assistance/insurance. Advised patient that she needs to come into lab and get labs done so we can see where her iron levels are done since [place] had these ordered in May. Patient voiced understanding. [facility]04-11-2025 Miscellaneous Notes* Telephone Encounter - Melly Colindres RN - 07/26/2024 3:54 PM EDT Patient calls to see the status of this request. Patient states that she now has financial assistance/insurance. Advised patient that she needs to come into lab and get labs done so we can see where her iron levels are done since [place] had these ordered in May. Patient voiced understanding. * Telephone Encounter - Luma Valdez LPN - 07/25/2024 10:18 AM EDT Patient calling asking about iron infusion? She said when she was in [facility] ion May, she was supposed to have iron infusions and never did do that her insurance did not cover it. Patient said she has another insurance now and is asking to have the infusions set up. Computer shows patient did not do the labs that A [employer] ACID MAKER had put in for her to complete. Please advise documented in this encounterLouis [facility]04-10-2025 Telephone encounter Note * Telephone Encounter - Luma Valdez LPN - 07/25/2024 10:18 AM EDT Patient calling asking about iron infusion? She said when she was in [facility] ion May, she was supposed to have iron infusions and never did do that her insurance did not cover it. Patient said she has another insurance now and is asking to have the infusions set up. Computer shows patient did not do the labs that [employer] ACID [employer]KER had put in for her to complete. Please advise [facility]03-20-2025 Telephone encounter Note* Telephone Encounter - Gi Mae LPN - 07/04/2024 12:20 PM EDT Faxed form to number provided on form. Notified pt of such. [facility]03-20-2025 Miscellaneous Notes* Telephone Encounter - Gi Mae LPN - 07/04/2024 12:20 PM EDT Faxed form to number provided on form. Notified pt of such. * Telephone Encounter - [place] Mireles APRN.CAT CRACKER OPERATOR - 07/04/2024 12:00 PM EDT Filled this out to the best of my ability. Paperwork in outbox. Please fax. Thank you, [place] Mireles APRN.CAT CRACKER OPERATOR * Telephone Encounter - Melly Bentley - 07/04/2024 10:46 AM EDT Patient stopped at medical front desk specialist to answer questions. Patient was admitted twice - once to [facility] and theother at [facility]. She is needing follow up prior to returning to work. The forms is to attest that she had a return to work follow up post hospital admittance. If possible, please fax to the number listed on the form and notify patient once faxed. If not ableto fax it, please notify patient for grape picker. Melly Bentley * Telephone Encounter - Gi Mae LPN - 07/03/2024 6:52 PM EDT Left message to call back and let us know what she needs. * Telephone Encounter - [place] Mireles APRN.TIFFANIE - 07/03/2024 5:38 PM EDT Can we try to reach out to her again? [place] Mireles APRN.CAT CRACKER OPERATOR * Telephone Encounter - Gi Mae LPN - 07/01/2024 4:17 PM EDT Left message to return call. * Telephone Encounter - [place] Mireles APRN.TIFFANIE - 07/01/2024 2:20 PM EDT Please get more information. I started filling this out but what is she needing? Does she just need the time off work that she was hospitalized/admitted? [place] Mireles APRN.CAT CRACKER OPERATOR * Telephone Encounter - Sherlyn Flores LPN - 07/01/2024 1:20 PM EDT Type of form: Health Insurance [employer] Form received via walk in When form is completed, Fax form Form has been forwarded to [place] Flores LPN documented in this encounterLouis [facility] Center03-20-2025 Telephone encounter Note * Telephone Encounter - [place] Mireles APRN.TIFFANIE - 07/04/2024 12:00 PM EDT Filled this out to the best of my ability. Paperwork in outbox. Please fax. Thank you, [place] Mireles APRN.CNP [facility]03-20-2025 Telephone encounter Note* Telephone Encounter - Melly Bentley - 07/04/2024 10:46 AM EDT Patient stopped at medical front desk specialist to answer questions. Patient was admitted twice - once to [facility] and theother at [facility]. She is needing follow up prior to returning to work. The forms is to attest that she had a return to work follow up post hospital admittance. If possible, please fax to the number listed on the form and notify patient once faxed. If not ableto fax it, please notify patient for grape picker. Melly Bentley [facility]03-19-2025 Telephone encounter Note* Telephone Encounter - Gi Mae LPN - 07/03/2024 6:52 PM EDT Left message to call back and let us know what she needs. [facility]03-19-2025 Telephone encounter Note* Telephone Encounter - [place] Mireles APRN.CNP - 07/03/2024 5:38 PM EDT Can we try to reach out to her again? [place] Mireles APRN.CNP [facility]03-17-2025 Telephone encounter Note* Telephone Encounter - Gi Mae LPN - 07/01/2024 4:17 PM EDT Left message to return call. [facility]03-17-2025 Telephone encounter Note* Telephone Encounter - [place] Mireles APRN.CAT CRACKER OPERATOR - 07/01/2024 2:20 PM EDT Please get more information. I started filling this out but what is she needing? Does she just need the time off work that she was hospitalized/admitted? [place] Mireles APRN.CAT CRACKER OPERATOR [facility]03-17-2025 Telephone encounter Note* Telephone Encounter - Sherlyn Flores LPN - 07/01/2024 1:20 PM EDT Type of form: Health Insurance [employer] Form received via walk in When form is completed, Fax form Form has been forwarded to [place] Flores LPN [facility]02-28-2025 Telephone encounter Note* Telephone Encounter - Suzi Gloria LPN - 06/14/2024 11:00 AM EST Called pt again with no answer and unable to leave a message. The mail box is full. [facility]02-28-2025 Miscellaneous Notes* Telephone Encounter - Suzi Gloria LPN - 06/14/2024 11:00 AM EST Called pt again with no answer and unable to leave a message. The mail box is full. * Telephone Encounter - Suzi Gloria LPN - 06/03/2024 3:17 PM EST Message left again for return call to a nurse to review. * Telephone Encounter - Wendy Ortega LPN - 05/29/2024 12:45 PM EST TC to pt. LM to call office, ask for triage nurse to get results. Wendy Ortega LPN * Telephone Encounter - Brittaney Berkowitz APRN.CNP - 05/29/2024 7:22 AM EST Can you please call the patient and let her know that the prior Auth for her sensors was approved but were over $200. The pharmacy mentioned something about a possible deductible. I would recommend that she call her insurance to verify. Brittaney Berkowitz APRN.CAT CRACKER OPERATOR * Telephone Encounter - Suzi Gloria LPN - 05/28/2024 10:08 AM EST Called the pharmacy and they read is covered but it is 64.99 The sensors are also covered. This cost is 224.99. Pharmacy isn't sure if there is a deductible that needs met first. * Telephone Encounter - Suzi Gloria LPN - 05/28/2024 9:41 AM EST Images from the original note were not included. Note from payer: Your PA request has been denied. Additional information will be provided in the denial communication. (Message 1140) Payer: JENARO Severino [phone] Electronic appeal: Not supported Appeal instructions: Your PA request has been denied. Additional information will be provided in the denial communication. (Message 1140) View History Notes Time User Attachment Attachment received from payer. 05/27/2024 10:18 AM [facility], Rx Priorauth In Document Medication Being Authorized Blood-Glucose Meter,Continuous (FREESTYLE JACQUE 3 READER) [facility] to check blood sugar at least four (4) times daily. Dispense: 1 Each Refills: 0 Start: 05/24/2024 Class: Normal Diagnoses: Type 2 diabetes mellitus without complication, with long-term current use of insulin (HCC) This order has been released to its destination. To be filled at: [address] [address] [facility] [phone] [facility] documented in this encounterLouis Stokes [facility] Center02-27-2025 Telephone encounter Note * Telephone Encounter - [place] Mireles APRN.CNP - 06/13/2024 2:32 PM EST The following approved medication requests have been transmitted electronically. Requested Prescriptions Signed Prescriptions Disp Refills carvedilol (COREG) 3.125 mg tablet 180 tablet 2 Sig: Take 1 tablet by mouth two times a day with meals. Authorizing Provider: JAMAICA MIRELES APRN.CNP [facility]02-27-2025 Miscellaneous Notes* Telephone Encounter - [place] Mireles APRN.CNP - 06/13/2024 2:32 PM EST The following approved medication requests have been transmitted electronically. Requested Prescriptions Signed Prescriptions Disp Refills carvedilol (COREG) 3.125 mg tablet 180 tablet 2 Sig: Take 1 tablet by mouth two times a day with meals. Authorizing Provider: JAMAICA MIRELES APRN.CNP * Telephone Encounter - Luma Valdez LPN - 06/13/2024 1:27 PM EST Patient calling to question about medication refills. Went over notes below from [place] Mireles ACID MAKER. Patient said she did not need pharmacist appt had gone over all of her medications yesterday with a nurse. Now patient was calling for a refill on aone medication she did not have yesterday and is needing it refilled. She takes Carvedilol 3.125 mg one tablet twice daily had gotten from hospital stay at [facility] from [facility]. Pending rx. Please advise The patient has been identified by name and date of : Yes Caregiver verified no other encounters exist for this prescription request: Yes Caregiver confirmed with patient/requestor that no other refills are due, in the near future, with this provider at this time: Yes The last office visit in the department: 05/24/2024 Does the patient have a future office visit with this provider/department: Yes 08/14/2024 Requested Prescriptions Pending Prescriptions Disp Refills carvedilol (COREG) 3.125 mg tablet 180 tablet Sig: Take 1 tablet by mouth two times a day with meals. Luma Valdez LPN June 13, 2024 1:31 PM * Telephone Encounter - [place] Mireles APRN.CNP - 06/13/2024 10:41 AM EST OK to refill at this time. Please make patient aware of this and have her come in to get lab work done as ordered to monitor potassium level. Also, make sure she makes pharmacy appointment to review medication list and clarify what medications she is taking as she was very unsure at recent office visit. Thank you, [place] Mireles APRN.CAT CRACKER OPERATOR * Telephone Encounter - Melly Colindres RN - 06/13/2024 10:15 AM EST Pharmacist calls and states that he received orders for spironolactone and entresto. Entresto contains an steffi inhibitor which can cause adverse reaction of severe hyperkalemia. Pharmacist wanted provider to be aware of this and wanted provider to ok filling both medications. Please review and advise, Melly Colindres RN documented in this encounterLouis Stokes [facility] Center02-27-2025 Telephone encounter Note * Telephone Encounter - Luma Valdez LPN - 06/13/2024 1:27 PM EST Patient calling to question about medication refills. Went over notes below from [place] Mireles ACID MAKER. Patient said she did not need pharmacist appt had gone over all of her medications yesterday with a nurse. Now patient was calling for a refill on aone medication she did not have yesterday and is needing it refilled. She takes Carvedilol 3.125 mg one tablet twice daily had gotten from hospital stay at [facility] from [facility]. Pending rx. Please advise The patient has been identified by name and date of : Yes Caregiver verified no other encounters exist for this prescription request: Yes Caregiver confirmed with patient/requestor that no other refills are due, in the near future, with this provider at this time: Yes The last office visit in the department: 05/24/2024 Does the patient have a future office visit with this provider/department: Yes 08/14/2024 Requested Prescriptions Pending Prescriptions Disp Refills carvedilol (COREG) 3.125 mg tablet 180 tablet Sig: Take 1 tablet by mouth two times a day with meals. Luma Valdez LPN June 13, 2024 1:31 PM [facility]02-27-2025 Telephone encounter Note* Telephone Encounter - [place] Mireles APRN.CNP - 06/13/2024 10:41 AM EST OK to refill at this time. Please make patient aware of this and have her come in to get lab work done as ordered to monitor potassium level. Also, make sure she makes pharmacy appointment to review medication list and clarify what medications she is taking as she was very unsure at recent office visit. Thank you, [place] Mireles APRN.CAT CRACKER OPERATOR [facility]02-27-2025 Telephone encounter Note* Telephone Encounter - Melly Colindres RN - 06/13/2024 10:15 AM EST Pharmacist calls and states that he received orders for spironolactone and entresto. Entresto contains an steffi inhibitor which can cause adverse reaction of severe hyperkalemia. Pharmacist wanted provider to be aware of this and wanted provider to ok filling both medications. Please review and advise, Melly Colindres RN [facility]02-26-2025 Telephone encounter Note* Telephone Encounter - Jacqui Jama LPN - 06/12/2024 12:17 PM EST Pt calling and she was put on 9 new medications when she was in [facility]. Pt reportsshe was just seen and did not have the list of new medications. Pt requesting refills on all the following: NEW Pantoprazole 40 mg taking 1 per day before meal Furosemide 40 mg taking 1 per day Clopidogrel 75 mg taking 1 per day Farxiga 5 mg taking 1 every am Spironolactone 25 mg 1 per day Entresto 24 mg 1 twice a day The patient has been identified by name and date of : Yes Caregiver verified no other encounters exist for this prescription request: Yes Caregiver confirmed with patient/requestor that no other refills are due, in the near future, with this provider at this time: Yes The last office visit in the department: 05/24/2024 Does the patient have a future office visit with this provider/department: Yes 08/14/2024 Requested Prescriptions Pending Prescriptions Disp Refills atorvastatin (LIPITOR) 40 mg tablet 30 tablet 5 Sig: TAKE 1 TABLET BY MOUTH ONCE DAILY AT BEDTIME FOR CHOLESTEROL pantoprazole DR (PROTONIX) 40 mg tablet 30 tablet 5 Sig: Take 1 tablet by mouth once daily. 30 minutes before eating. furosemide (LASIX) 40 mg tablet 30 tablet 5 Sig: Take 1 tablet by mouth once daily. clopidogrel (PLAVIX) 75 mg tablet 30 tablet 5 Sig: Take 1 tablet by mouth once daily. dapagliflozin propanediol (FARXIGA) 5 mg tablet 30 tablet 5 Sig: Take 1 tablet by mouth daily with breakfast. spironolactone (ALDACTONE) 25 mg tablet 30 tablet 5 Sig: Take 1 tablet by mouth once daily. sacubitril-valsartan (ENTRESTO) 24-26 mg tablet 60 tablet 5 Sig: Take 1 tablet by mouth two times a day. Jacqui Jama LPN June 12, 2024 12:32 PM [facility]02-26-2025 Miscellaneous Notes* Telephone Encounter - Jacqui Jama LPN - 06/12/2024 12:17 PM EST Pt calling and she was put on 9 new medications when she was in [facility]. Pt neshae was just seen and did not have the list of new medications. Pt requesting refills on all the following: NEW Pantoprazole 40 mg taking 1 per day before meal Furosemide 40 mg taking 1 per day Clopidogrel 75 mg taking 1 per day Farxiga 5 mg taking 1 every am Spironolactone 25 mg 1 per day Entresto 24 mg 1 twice a day The patient has been identified by name and date of : Yes Caregiver verified no other encounters exist for this prescription request: Yes Caregiver confirmed with patient/requestor that no other refills are due, in the near future, with this provider at this time: Yes The last office visit in the department: 05/24/2024 Does the patient have a future office visit with this provider/department: Yes 08/14/2024 Requested Prescriptions Pending Prescriptions Disp Refills atorvastatin (LIPITOR) 40 mg tablet 30 tablet 5 Sig: TAKE 1 TABLET BY MOUTH ONCE DAILY AT BEDTIME FOR CHOLESTEROL pantoprazole DR (PROTONIX) 40 mg tablet 30 tablet 5 Sig: Take 1 tablet by mouth once daily. 30 minutes before eating. furosemide (LASIX) 40 mg tablet 30 tablet 5 Sig: Take 1 tablet by mouth once daily. clopidogrel (PLAVIX) 75 mg tablet 30 tablet 5 Sig: Take 1 tablet by mouth once daily. dapagliflozin propanediol (FARXIGA) 5 mg tablet 30 tablet 5 Sig: Take 1 tablet by mouth daily with breakfast. spironolactone (ALDACTONE) 25 mg tablet 30 tablet 5 Sig: Take 1 tablet by mouth once daily. sacubitril-valsartan (ENTRESTO) 24-26 mg tablet 60 tablet 5 Sig: Take 1 tablet by mouth two times a day. Jacqui Jama LPN June 12, 2024 12:32 PM documented in this encounterLouis Stokes [facility] Center02-17-2025 Telephone encounter Note * Telephone Encounter - Suzi Gloria LPN - 06/03/2024 3:17 PM EST Message left again for return call to a nurse to review. [facility]02-12-2025 Telephone encounter Note* Telephone Encounter - Wendy Ortega LPN - 05/29/2024 12:45 PM EST TC to pt. LM to call office, ask for triage nurse to get results. Wendy Ortega LPN [facility]02-12-2025 Telephone encounter Note* Telephone Encounter - Brittaney Berkowitz APRN.CNP - 05/29/2024 7:22 AM EST Can you please call the patient and let her know that the prior Auth for her sensors was approved but were over $200. The pharmacy mentioned something about a possible deductible. I would recommend that she call her insurance to verify. Brittaney Berkowitz APRN.TIFFANIE [facility] Work Phone: [phone]) 696-664802-11-2025 Telephone encounter Note* Telephone Encounter - Suzi Gloria LPN - 05/28/2024 10:08 AM EST Called the pharmacy and they read is covered but it is 64.99 The sensors are also covered. This cost is 224.99. Pharmacy isn't sure if there is a deductible that needs met first. [facility]02-11-2025 Telephone encounter Note* Telephone Encounter - Suzi Gloria LPN - 05/28/2024 9:41 AM EST Images from the original note were not included. Note from payer: Your PA request has been denied. Additional information will be provided in the denial communication. (Message 1140) Payer: JENARO Severino [phone] Electronic appeal: Not supported Appeal instructions: Your PA request has been denied. Additional information will be provided in the denial communication. (Message 1140) View History Notes Time User Attachment Attachment received from payer. 05/27/2024 10:18 AM [facility], Rx Priorauth In Document Medication Being Authorized Blood-Glucose Meter,Continuous (FREESTYLE JACQUE 3 READER) misc Use to check blood sugar at least four (4) times daily. Dispense: 1 Each Refills: 0 Start: 05/24/2024 Class: Normal Diagnoses: Type 2 diabetes mellitus without complication, with long-term current use of insulin (HCC) This order has been released to its destination. To be filled at: [address] [address] [facility] [phone] [facility]02-10-2025 Telephone encounter Note* Telephone Encounter - Joni Rodriguez - 05/27/2024 10:52 AM EST Telephoned the patient to schedule a new Primary Care pharmacy appt. Unable to leave a message. Automated response: The number you have dialed has calling restrictions. [facility]02-10-2025 Miscellaneous Notes* Telephone Encounter - Joni Rodriguez - 05/27/2024 10:52 AM EST Telephoned the patient to schedule a new Primary Care pharmacy appt. Unable to leave a message. Automated response: The number you have dialed has calling restrictions. documented in this encounterLouis Stokes Cleveland [facility] Center02-07-2025 Telephone encounter Note * Telephone Encounter - Melly Colindres RN - 05/24/2024 3:36 PM EST Donal from [facility] calls and is asking if provider can send in prescription for test strips? Please review and advise, Melly Colindres RN [facility]02-07-2025 Miscellaneous Notes* Telephone Encounter - Melly Colindres RN - 05/24/2024 3:36 PM EST [facility] calls and is asking if provider can send in prescription for test strips? Please review and advise, Melly Colindres RN documented in this encounterLouis Stokes Cleveland [facility] Medical Center02-07-2025 History of Present illness Narrative* [place] Mireles APRN.CAT CRACKER OPERATOR - 05/24/2024 1:00 PM EST Chief Complaint Patient presents with: [facility] f/up HPI Mariella Ramirez is a 54 year old female who presents here today for Above Complaints. Mariella is an established patient of Dr. Yovani DO. Concerns today.... Hospital follow-up --- Pt was seen in office on 05/02 and reported that she stopped all medication and trying to use natural remedies. After getting lab work (hgA1c 18, BNP 8555, and hgb of 6.8) she was sent to ER for admission. [facility] admission on 05/03 managed anemia by iron infusions and GI performed upper and lower endoscopies with unremarkable findings. Pt is Anabaptism so no blood was given. She was discharged. Then pt went to [facility] ER on 05/09 d/t BLE edema and dyspnea. BNP was > 17847, trop was negative. No infectious etiology. Hgb was 6.7. ECHO with EF of 40-45%. Seen by CHF team and stated on lasix drip. Sent home on 40 mg lasix daily. Also started on Entresto. Additional iron was given during second admission -- hgb remained stable above 7 during entire admission. 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 Had endometrial biopsy and IUD placement inpatient. One episode of hypoglycemia while inpatient -- adjusted Lantuss dosage to 12 units at bedtime. Discharged on 05/14. In office today... Cardiology appointment - does not have appointment yet. States she will make appointment this week,and waited because she wanted to get back to work and make money. Hematology appointment for iron - no appointment yet, doesn't know who she is supposed to go to. 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 States she does not want to take the insulin if she doesn't eat if it will make her blood sugars too low. Has not been checking blood sugars at home, states she does not have a meter. States she is taking herbal supplements leaf from [place] for DM and HTN currently. HTN- Lisinopril 10mg every day - reports she is taking every day but is unsure if she was still taking her old BP medication losartan. Spironolactone 25mg every day - reports she is taking a water pill everyday but is unsure which one. States she thinks she was told to stop taking the lasix States BP is usually in 120s doesn't know the bottom number Last 14 Encounter BP Readings: Date: BP: 05/24/2024 139/70 05/02/2024 162/90 05/01/2024 154/90 12/23/2022 138/78 09/16/2022 138/84 08/25/2022 140/78 01/06/2022 120/70 01/05/2022 122/70 09/10/2021 120/82 05/24/2021 136/86 04/30/2021 179/87 02/22/2021 134/78 11/11/2020 120/70 07/17/2020 142/84 Cardiac- Entresto - pt reports compliance States swelling has decreased some and is wearing compression stockings every night. Anemia- ferrous sulfate 325 mg three times daily Folic acid 1mg every day GI- Colonoscopy done on 05/05/[address] Milligan. Was instructed to follow-up with him. Does not have appointment yet. Pt reports being very tired, is not sure if it is due to her low hemoglobin. Pt expresses feeling overwhelmed and confused with all the medication changes from her hospital visits. Past medical history, appointments, medications, allergies reviewed. 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 PAST SURGICAL HISTORY OF 1995 Bilateral removal of breast tissue in axilla PAST SURGICAL HISTORY OF unsure R foot surgery - fusion vs bunionectomy, patient unsure Family History FAMILY HISTORY Problem Relation Age of Onset Cancer Father PROSTATE Alcohol/Drug Father Diabetes Father Hypertension Father Stroke Father Prostate Cancer Father Breast Cancer Maternal Grandmother Diabetes Paternal Uncle Stroke Paternal Uncle Breast Cancer Other MATERNAL COUSINS X2 Hypertension Other NIECE No Ocular Disease No Family History Patient Allergies ALLERGIES Allergen Reactions Steffi Inhibitors Cough Latex Rash Morphine GI Upset Terrible vomitting Current Medications Current Outpatient Medications on File Prior to Visit Medication Sig lisinopril (ZESTRIL) 10 mg tablet Take 1 tablet by mouth once daily. Comp Stocking,Knee,Regular,Med misc 2 Each once daily. metoprolol succinate ER (TOPROL XL) 100 mg Take 1 tablet by mouth two times a day. ticagrelor (BRILINTA) 90 mg tablet Take by mouth. [facility] atorvastatin (LIPITOR) 40 mg tablet TAKE 1 TABLET BY MOUTH ONCE DAILY AT BEDTIME FOR CHOLESTEROL insulin glargine (LANTUS SOLOSTAR U-100 INSULIN) 100 unit/mL (3 mL) Inject 30 Units subcutaneously daily at bedtime. insulin lispro (HUMALOG KWIKPEN INSULIN) 100 unit/mL 12 units 3 times daily (Patient taking differently: Inject 6 Units subcutaneously three times a day before meals. 12 units 3 times daily) blood sugar diagnostic (BLOOD GLUCOSE TEST) test strip Test blood sugar(s) one times daily. Dx: 250.00. Insulin: No BABY ASPIRIN ORAL Take by mouth. Cholecalciferol, Vitamin D3, (DIALYVITE VITAMIN D) 125 mcg (5,000 unit) cap Take 1 capsule by mouthonce daily. Insulin Hume, Disposable, (BD ULTRA-FINE SONU PEN NEEDLE) 32 gauge x 5/32 ndle 2Use one needle for each dose. 1/day. Lancets lancets Test blood sugar(s) 1 times daily. Dx: DM2. Insulin: No blood sugar diagnostic (RELION PRIME TEST STRIPS) test strip Diabetes mellitus type 2, non insulin dependent, testing 1x/day, Use as instructed ONETOUCH ULTRA TEST test strip USE TO CHECK GLUCOSE ONCE DAILY Blood-Glucose Meter (ONE TOUCH ULTRA 2) monitoring kit 1 Each as needed. One Touch Meter Kit Diagnosis: Diabetes Mellitus ibuprofen 800 mg tablet Take 1 tablet by mouth every 8 hours as needed (FOR PAIN. TAKE WITH FOOD). MULTI-VITAMIN ORAL Take by mouth. No current facility-administered medications on file prior to visit. Social History Social History Tobacco Use Smoking status: Never Smokeless tobacco: Never Substance Use Topics Alcohol use: No Drug use: No REVIEW OF SYSTEMS: as above Reviewed relevant PMHx, PSHx, Social Hx, current medications and allergies. Review of Symptoms REVIEW OF SYSTEMS See HPI. EXAM: BP 139/70 (BP Site: Left Arm, BP Position: Sitting, BP Cuff Size: Regular Adult) Pulse 98 Resp 14 Wt 71.7 kg (158 lb) LMP 12/30/2021 (Approximate) SpO2 100% BMI 24.80 kg/m General Appearance: Well appearing, alert, in no acute distress, well-hydrated, well nourished..pt tearful and overwhelmed Lungs: Lungs clear to auscultation. No wheezing, rhonchi, rales.. Heart: RRR without murmur, gallop, or rubs. No ectopy. Extremities: Edema: bilateral nonpitting +1. Health Maintenance List Depression Screening Never done Anxiety Screening Never done Hepatitis B Vaccine(1 of 3 - 19+ 3-dose series) Never done Dilated Retinal Exam due on 03/29/2019 Mammogram Screening due on 12/12/2020 Shingrix Vaccine(1 of 2) Never done BP Controlled (<130/80) due on 09/10/2022 Urine Albumin:Creatinine Ratio due on 08/27/2023 Diabetic Foot Exam due on 12/24/2023 Covid-19 Vaccine(2023- season) due on 05/24/2025 HbA1C due on 07/31/2024 LDL Cholesterol due on 05/02/2025 Annual PCP Team Chronic Disease Visit due on 05/24/2025 Colorectal Cancer Screening due on 04/30/2026 Cervical Cancer Screening due on 01/06/2027 DTaP,Tdap,Td Vaccine(7 - Td or Tdap) due on 12/23/2032 Influenza Vaccine Completed Hepatitis C Screening Completed HIV Screening Completed Pneumococcal Vaccine: 50+ Completed ASSESSMENT/PLAN: Plan: Recheck hemoglobin, ferritin, glucose, CMP, BNP. Instructed patient to make appointment with cardiology and gynecology this week. Consult to hematology. Ordered continuous and blood-glucose monitor and one touch meter. Instructed patient to check blood sugars at home. Pharmacy consult to help patient with confusion of what medications she should be taking and why. 1. Anemia, unspecified type - ICD9: 285.9, ICD10: D64.9 (primary diagnosis) Unknown cause. Repeat lab work as below. - COMPLETE BLOOD COUNT AND DIFFERENTIAL - COMPREHENSIVE METABOLIC PANEL - CONSULT TO HEMATOLOGY - CONSULT TO PHARMACY - IRON AND TIBC - FERRITIN 2. Encounter for screening examination for other mental health and behavioral disorders - ICD9: V79.8, ICD10: Z13.39 - ANXIETY SCREENING - CONSULT TO PHARMACY 3. Mixed hyperlipidemia - ICD9: 272.2, ICD10: E78.2 Needs clarification on what medication she is taking - CONSULT TO PHARMACY 4. Bilateral leg edema - ICD9: 782.3, ICD10: R60.0 Improving. Needs to schedule cardiology appointment. - CONSULT TO PHARMACY 5. Type 2 diabetes mellitus without complication, with long-term current use of insulin (HCC) - ICD9: 250.00, V58.67, ICD10: E11.9, Z79.4 Unknown blood sugars. Rx for CGM and finger prick glucometer. Stay on current medication regimen for now. Will wait to see with pharmacy consult what exactly she is taking due to patient unsure. - CONSULT TO PHARMACY - FREESTYLE JACQUE 3 READER - FREESTYLE JACQUE 3 PLUS SENSOR DEVICE 6. Congestive heart failure, unspecified HF chronicity, unspecified heart failure type (HCC) - ICD9: 428.0, ICD10: I50.9 Stable, no new symptoms. - COMPLETE BLOOD COUNT AND DIFFERENTIAL - COMPREHENSIVE METABOLIC PANEL - NT PRO BNP - MAGNESIUM - CONSULT TO PHARMACY 7. Noncompliance with medication regimen - ICD9: V15.81, ICD10: Z91.148 Needs clarity on current medication regimen d/t 2 recent hospital admissions from 2 different hospitals -- pt is very overwhelmed and not sure what she is suppose to be taking or what she is even currently taking. - CONSULT TO PHARMACY 8. Type 2 diabetes mellitus with other specified complication, with long-term current use of insulin (HCC) - ICD9: 250.80, V58.67, ICD10: E11.69, Z79.4 See above. - LANCETS - ALCOHOL SWABS - BLOOD GLUCOSE CONTROL, NORMAL SOLUTION - BLOOD-GLUCOSE METER RTO in 1-2 months, sooner if needed. Prescription instructions reviewed with patient as applicable. Potential red flag symptoms discussed with the patient. Reviewed appropriate action plan to take if red flag symptoms occur. Patient agreeable to treatment plan. During this patient visit I have spent approximately 60 minutes out of 75 in counseling regarding treatment options, medications, and coordinating care and coordinating care. Jamaica Marsh APRN.CAT CRACKER OPERATOR [address] [place] [address] documented in this encounterLouis [facility] NoteHNO ID: [id number] Author: JAMAICA MIRELES APRN.CNP Service: ? Author Type: Nurse Practitioner Type: Progress Notes Filed: 05/24/2024 14:59 Note Text: Chief Complaint Patient presents with: [facility] f/up HPI Mariella Ramirez is a 54 year old female who presents here today for Above Complaints. Mariella is an established patient of Dr. Yovani DO. Concerns today.... Hospital follow-up --- Pt was seen in office on 05/02 and reported that she stopped all medication and trying to use natural remedies. After getting lab work (hgA1c 18, BNP 8555, and hgb of 6.8) she was sent to ER for admission. [facility] admission on 05/03 managed anemia by iron infusions and GI performed upper and lower endoscopies with unremarkable findings. Pt is Anabaptism so no blood was given. She was discharged. Then pt went to [facility] ER on 05/09 d/t BLE edema and dyspnea. BNP was > 81771, trop was negative. No infectious etiology. Hgb was 6.7. ECHO with EF of 40-45%. Seen by CHF team and stated on lasix drip. Sent home on 40 mg lasix daily. Also started on Entresto. Additional iron was given during second admission -- hgb remained stable above 7 during entire admission. 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 Had endometrial biopsy and IUD placement inpatient. One episode of hypoglycemia while inpatient -- adjusted Lantuss dosage to 12 units at bedtime. Discharged on 05/14. In office today... Cardiology appointment - does not have appointment yet. States she will make appointment this week, and waited because she wanted to get back to work and make money. Hematology appointment for iron - no appointment yet, doesn't know who she is supposed to go to. 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 States she does not want to take the insulin if she doesn't eat if it will make her blood sugars too low. Has not been checking blood sugars at home, states she does not have a meter. States she is taking herbal supplements leaf from [place] for DM and HTN currently. HTN- Lisinopril 10mg every day - reports she is taking every day but is unsure if she was still taking her old BP medication losartan. Spironolactone 25mg every day - reports she is taking a water pill everyday but is unsure which one. States she thinks she was told to stop taking the lasix States BP is usually in 120s doesn't know the bottom number Last 14 Encounter BP Readings: Date: BP: 05/24/2024 139/70 05/02/2024 162/90 05/01/2024 154/90 12/23/2022 138/78 09/16/2022 138/84 08/25/2022 140/78 01/06/2022 120/70 01/05/2022 122/70 09/10/2021 120/82 05/24/2021 136/86 04/30/2021 179/87 02/22/2021 134/78 11/11/2020 120/70 07/17/2020 142/84 Cardiac- Entresto - pt reports compliance States swelling has decreased some and is wearing compression stockings every night. Anemia- ferrous sulfate 325 mg three times daily Folic acid 1mg every day GI- Colonoscopy done on 05/05/[address] Milligan. Was instructed to follow-up with him. Does not have appointment yet. Pt reports being very tired, is not sure if it is due to her low hemoglobin. Pt expresses feeling overwhelmed and confused with all the medication changes from her hospital visits. Past medical history, appointments, medications, allergies reviewed. 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 07/04/2012 Previous Surgical History PAST SURGICAL HISTORY Procedure Laterality Date CAROTID STENT COLONOSCOPY FLX DX W/COLLJ SPEC WHEN PFRMD 12/02/2015 Colonoscopy (MAC) CORONARY STENT EA VESSEL 06/2020 DILATION AND CURETTAGE DXAND/THER NONOBSTETRIC Dilation AND curettage IMPLANTABLE CARDIOVERTER DEFIBRILLATOR PAST SURGICAL HISTORY OF 1995 Bilateral removal of breast tissue in axilla PAST SURGICAL HISTORY OF unsure R foot surgery - fusion vs bunionectomy, patient unsure Family History FAMILY HISTORY Problem Relation Age of Onset Cancer Father PROSTATE Alcohol/Drug Father Diabetes Father Hypertension Father Stroke Father Prostate Cancer Father Breast Cancer Maternal Grandmother Diabetes Paternal Uncle Stroke Paternal Uncle Breast Cancer Other MATERNAL COUSINS X2 Hypertension Other NIECE No Ocular Disease No Family History Patient Allergies ALLERGIES Allergen Reactions Steffi Inhibitors Cough Latex Rash Morphine GI Upse (more content not included)...[facility] 05-14-2024 Discharge summary Date of Service 05/14/2024 Discharge Diagnosis Acute exacerbation of chronic heart failure with now reduced ejection fraction of 40 to 45%, grade 1 diastolic dysfunction Moderate MR Pulmonary arterial hypertension Mild to moderate TR Acute on chronic anemia without any active evidence Menorrhagia Endometrial cyst at the fundus Iron deficiency anemia Anabaptism DM2 Hospital Course This is a pleasant 54-year-old -Congolese female with a known history of type 2 diabetes withhistory of DKA, CAD status post multiple stents, hypertension, hyperlipidemia, HFpEF now with reduced EF of 40 to 45%, iron deficiency anemia, Anabaptism, who presented to the ED due to ongoing severe bilateral lower extremity edema, dyspnea with minimal exertion. She apparently was discharged about a week prior from [facility] and was managed there for anemia, with a hemoglobin of 5, was noted to be iron deficient and was given iron infusions, was seen by java front end web developer and had an upper and lower endoscopy which did not show any concerning findings. On presentation, patient's hemoglobin was 6.7, in October it was 11.3. No leukocytosis, proBNP was elevated greater than 13,000,high-sensitivity troponin was negative. Did not have any infectious etiology. Patient endorsed thatshe was having menorrhagia but was not actively in her menstrual period. She was seen by CHF team, was on Lasix drip, GDMT has been optimized, recommending Lasix 40 mg daily with repeat BMP in 1 weekand follow-up with cardiology in 2 weeks. Patient had an echocardiogram which showed a ejection fraction of 40 to 45%, started on Entresto. Was also seen by hematology, received IV iron, will follow-up with them in the outpatient setting for further ongoing care. Hemoglobin has been stable above 7. No other cause found for her anemia except for the menorrhagia that she was complaining of. Was seen by gynecology, had an ultrasound which showed a small polyp/cyst on the fundus of the uterus, she had a endometrial biopsy along with an IUD placement. Recommending following up with her usual java application developer in outpatient setting for ongoing care. From [place] standpoint, she is optimized for discharge, can use TXA with her menstrual period of heavy but at this time do not recommend it as IUD should be taking care of this. during hospitalization the patient had an episode of hypoglycemia , her insulin regimen has been adjusted as she states she was taking lantus PRN at home the patient recently lost her insurance, she received prescription assistance before discharge. when I saw the patient this morning she did not have any complains, no fever or chills, no chest pain or SOB, no abdominal pain, no nausea or vomiting Allergies penicillin (Mild) vomiting Latex morphine Nausea and vomiting Consults Consult to Physician - Ordered -- 05/10/24 13:06:00 LUIS, ZACHARY MELGOZA MD, Routine, Other, evaluate the need for Brillinta Consult to Physician (Physician Consult) - Ordered -- 05/10/24 8:41:00 EST, SHAVON HOLDEN MD, Routine, Anemia, Jehovah witness Consult to Physician (Physician Consult) - Ordered -- 05/10/24 8:48:00 LUIS, ZACHARY MELGOZA MD, Routine, High output HF Consult to Physician (Physician Consult) - Ordered -- 05/11/24 14:52:00 EST, YAIR SMITH DO, Routine, menorrhagia, Anabaptism, anemia Imaging Results and Diagnostics US Pelvis Non-OB W/Transvaginal Result Date: May 11, 2024 Verified By: POLO ESTRADA MD CLINICAL STATEMENT: IMPRESSION: No acute findings. XR Chest 2 Views Result Date: May 09, 2024 Verified By: POLO ESTRADA MD CLINICAL STATEMENT: IMPRESSION: Low lung volumes with perihilar and lower lung field opacities concerning forpneumonia or other infiltrates. Correlate clinically and follow-up toresolution. Objective Vitals and Measurements T: 37.1 C (Oral) TMIN: 36.9 C (Oral) TMAX: 37.1 C (Oral) HR: 95 (Monitored) RR: 18 BP: 124/82 SpO2:96% WT: 71.5 kg Weight Current Weight Dosing Weight: 80.4 kg (05/11/24) Current Weight: 71.5 kg (05/14/24) Dosing Weight: 80.8 kg (05/10/24) Current Weight: 93 kg (05/13/24) the patient was seen at bedside she seems comfortable in no acute distress HEENT: NCAT, PEERLA neck: supple, no JVD lungs : CTAB, no wheezing heart, RRR, S1S2 normal abdomen: soft , non tender or distended, bowel sounds are normal LE: no edema, PPBL neuro exam : the patient is AAA3, no focal neurologic deficits Code Status No qualifying data available. Admission Date 05/09/2024 Discharge Date 05/14/2024 Patient Instructions -resume your prehospitalization diet and activities. -follow with your PCP in 1-3 days -follow with your INDUSTRIAL WASTE TREATMENT TECHNICIAN in 1-2 weeks to follow on the results of the biopsy of the endometrial polyp -follow with cardiology in 2 weeks -follow with HEM/ONC in 2 weeks -check CBC, BMP in a week -check your BG 3 times daily and follow with PCP with the results to adjust your medications Medications New Prescription carvedilol (Coreg 3.125 mg oral tablet)1 tab(s) by mouth twice daily with meals. Refills: 0. clopidogrel (Plavix 75 mg oral tablet)1 tab(s) by mouth once a day. Refills: 0. dapagliflozin (Farxiga 5 mg oral tablet)1 tab(s) by mouth once a day (in the morning). Refills: 0. DME (Insulin Syringes (orange cap))Use one syringe to inject insulin 4 times daily as directed. 1 box. Refills: 0. furosemide (Lasix 40 mg oral tablet)1 tab(s) by mouth once a day. Refills: 0. magnesium oxide (magnesium oxide 400 mg oral tablet)1 tab(s) by mouth two (2) times a day for 14 Days. Refills: 0. pantoprazole (pantoprazole 40 mg oral enteric coated tablet)1 tab(s) by mouth once a day before a meal. Refills: 0. sacubitril-valsartan (Entresto 24 mg-26 mg oral tablet)1 tab(s) by mouth two (2) times a day. Refills: 0. spironolactone (spironolactone 25 mg oral tablet)1 tab(s) by mouth once a day with a meal. Refills:0. Changed insulin glargine (Lantus 100 units/mL10 ml vial solution)12 unit(s) Subcutaneous (INT) daily at bedtime. Refills: 0. Unchanged [id number] Milligram by mouth every 6 hours as needed Pain, scale 1-10. atorvastatin (atorvastatin 40 mg oral tablet)1 tab(s) by mouth once a day for 60 Days. Refills: 0. DME (Alcohol Swabs)1 box, Use one alcohol swab to clean finger TID as directed for blood sugar checks. Refills: 0. DME (Blood Glucose Test Machine)Use glucometer daily as directed for blood sugar checks. Dispense insurance preferred device.. Refills: 0. DME (Blood Glucose Test Strips)Use one test strip to check blood sugar TID as directed. Dispense insurance preferred test strips. 1 box of 100 strips. Refills: 0. DME (Lancets)Use one lancet to carmen finger for blood sugar testing TID as directed. Dispense insurance preferred lancets.1 box. Refills: 0. DME (Pen needles)Use one pen needle to inject insulin TID as directed. qs for 1 month supply. Refills: 0. ferrous [id number] Milligram by mouth three (3) times a day. folic acid (folic acid 1 mg oral tablet)1 tab(s) by mouth once a day for 14 Days. Refills: 0. insulin lispro (HumaLOG) (Insulin Lispro KwikPen 100 units/mL injectable solution)0.06 Milliliter Subcutaneous three (3) times a day before meals for 90 Days. Refills: 0. Milligram by mouth once a day. Discontinued losartan (losartan 50 mg oral tablet)1 tab(s) by mouth once a day for 60 Days. Refills: 0. metoprolol (metoprolol succinate 100 mg oral TABLET extended release)1 tab(s) by mouth two (2) times a day for 60 Days. Refills: 0. ticagrelor (Brilinta (ticagrelor) 90 mg oral tablet)1 tab(s) by mouth two (2) times a day for 60 Days. Refills: 0. Follow Up Follow Up with ZACHARY MELGOZA MD When:In 2 weeks Where:[address] [facility] [address] [facility] [place] [address]- [phone] Additional Information: Schedule appointment as soon as possible Follow Up with Gynecology When:In 4 weeks Additional Information: Schedule appointment as soon as possible Follow Up with REGIS DAVILA MD When:In 4 weeks Where:[address] [facility] Hematology [place] [address]- Additional Information: Schedule appointment as soon as possible Follow Up with GERBER PINA DO When:Within 1-2 days Where:[address] [place] [address]- Additional Information: Please call the office to schedule a hospital follow up appointment. Follow Up Appointments as mentioned before Follow Up Labs/Studies Discharge Labs Discharge Outpatient Labwork - Ordered -- BMP, magnesium level, CBC, CHF, anemia, follow-up within: 1 week, Results Notify to: GERBER PINA DO Results Notify to: ZACHARY MELGOZA MD, CC results to also hematology at [facility]: Dr. Davila, 05/14/24 9:30:00 EST Discharge Studies No Follow-up Studies Discharge Diet Discharge Diet - Ordered -- Type of Diet: Cardiac, Calories Permitted: 1800 kcal, No changes were made to your diet during your hospital stay. Please resume your pre hospitalization diet on discharge., 05/14/24 9:30:00 EST Discharge Activity Discharge Activity - Ordered -- Resume your pre-hospitalization activity, 05/14/24 9:30:00 EST Condition on Discharge fair Readmission Risk/Palliative Score No qualifying data available. Discharge Disposition home Information Provided To patient Time Spent 35 minutes Digitally Signed by MAURICE SAMSON MD on 05/14/2024 08:20 PM [id number] Discharge instructions Patient Education 05/14/2024 09:54:16 Heart Failure, Self Care Heart Failure, Self Care Heart failure is a serious condition. This document explains the things you need to do to take careof yourself after a heart failure diagnosis. You may be asked to change your diet, take certain medicines, and make other lifestyle changes in order to stay as healthy as possible. Your health care provider may also give you more specific instructions. If you have problems or questions, contact your health care provider. What are the risks? Having heart failure puts you at higher risk for certain problems. These problems can get worse if you do not take good care of yourself. Problems may include: Blood clotting problems. This may cause a stroke. Damage to the kidneys, liver, or lungs. Abnormal heart rhythms. Supplies needed: Scale for monitoring weight. Blood pressure monitor. Notebook. Medicines. How to care for yourself when you have heart failure Medicines Take [id number] and prescription medicines only as told by your health care provider. Medicines reduce the workload of your heart, slow the progression of heart failure, and improve symptoms. Take your medicines every day. Do not stop taking your medicine unless your health care provider tells you to do so. Do not skip any dose of medicine. Refill your prescriptions before you run out of medicine. Eating and drinking Eat heart-healthy foods. Talk with a dietitian to make an eating plan that is right for you. ?Choose foods that contain no trans fat and are low in saturated fat and cholesterol. Healthy choices include fresh or frozen fruits and vegetables, fish, lean meats, legumes, fat-free or low-fat dairy products, and whole-grain or high-fiber foods. ?Limit salt (sodium) if told by your health care provider. Sodium restriction may reduce symptoms of heart failure. Ask a dietitian to recommend heart-healthy seasonings. ?Use healthy cooking methods instead of frying. Healthy methods include roasting, grilling, broiling, baking, poaching, steaming, and stir-frying. Limit your fluid intake, if directed by your health care provider. Fluid restriction may reduce symptoms of heart failure. Alcohol use Do not drink alcohol if: ?Your health care provider tells you not to drink. ?Your heart was damaged by alcohol, or you have severe heart failure. ?You are , may be , or are planning to become . If you drink alcohol: ?Limit how much you use to: ?0 1 drink a day for women. ?0 2 drinks a day for men. ?Be aware of how much alcohol is in your drink. In the [place] one drink equals one 12 oz bottle of beer (355 mL), one 5 oz glass of wine (148 mL), or one 1 oz glass of hard liquor (44 mL). Lifestyle Do not use any products that contain nicotine or tobacco, such as cigarettes, e- cigarettes, and chewing tobacco. If you need help quitting, ask your health care provider. ?Do not use nicotine gum or patches before talking to your health care provider. Do not use illegal drugs. Work with your health care provider to safely reach the right body weight. Do physical activity if told by your health care provider. Talk to your health care provider beforeyou begin an exercise if: ?You are an older adult. ?You have severe heart failure. Learn to manage stress. If you need help to do this, ask your health care provider. Participate in or seek rehabilitation as needed to keep or improve your independence and quality oflife. Plan rest periods when you get tired. Monitoring important information Weigh yourself every day. This will help you to notice if too much fluid is building up in your body. ?Weigh yourself every morning after you urinate and before you eat breakfast. ?Wear the same amount of clothing each time you weigh yourself. ?Record your daily weight. Provide your health care provider with your weight record. Monitor and record your pulse and blood pressure as told by your health care provider. Dealing with extreme temperatures If the weather is extremely hot: ?Avoid vigorous physical activity. ?Use air conditioning or fans, or find a cooler location. ?Avoid caffeine and alcohol. ?Wear loose-fitting, lightweight, and light-colored clothing. If the weather is extremely cold: ?Avoid vigorous activity. ?Layer your clothes. ?Wear mittens or gloves, a hat, and a scarf when you go outside. ?Avoid alcohol. Follow these instructions at home: Stay up to date with vaccines. Pneumococcal and flu (influenza) vaccines are especially important in preventing infections of the airways. Keep all follow-up visits as told by your health care provider. This is important. Contact a health care provider if you: Have a rapid weight gain. Have increasing shortness of breath. Are unable to participate in your usual physical activities. Get tired easily. Cough more than normal, especially with physical activity. Lose your appetite or feel nauseous. Have any swelling or more swelling in areas such as your hands, feet, ankles, or abdomen. Are unable to sleep because it is hard to breathe. Feel like your heart is beating quickly (palpitations). Become dizzy or light-headed when you stand up. Get help right away if you: Have trouble breathing. Notice or your family notices a change in your awareness, such as having trouble staying awake or concentrating. Have pain or discomfort in your chest. Have an episode of fainting (syncope). These symptoms may represent a serious problem that is an emergency. Do not wait to see if the symptoms will go away. Get medical help right away. Call your local emergency services (911 in the [place] Do not drive yourself to the hospital. Summary Heart failure is a serious condition. To care for yourself, you may be asked to change your diet, take certain medicines, and make other lifestyle changes. Take your medicines every day. Do not stop taking them unless your health care provider tells you to do so. Eat heart-healthy foods, such as fresh or frozen fruits and vegetables, fish, lean meats, legumes, fat-free or low-fat dairy products, and whole-grain or high-fiber foods. Ask your health care provider if you have any alcohol restrictions. You may have to stop drinking alcohol if you have severe heart failure. Contact your health care provider if you notice problems, such as rapid weight gain or a fast heartbeat. Get help right away if you faint, or have chest pain or trouble breathing. This information is not intended to replace advice given to you by your health care provider. Make sure you discuss any questions you have with your health care provider. Document Released: 07/17/2019 Document Revised: 07/16/2019 Document Reviewed: 07/17/2019 [employer] Patient Education 2020 [employer]. Follow Up Care 05/09/2024 18:34:47 With:ZACHARY MELGOZA MD Address: [facility] [address] [facility] Heart and Vascular [facility] [place] [address] [phone] When:Within 2 Week(s) Comments:Schedule appointment as soon as possible With:Gynecology Address: When:Within 4 Week(s) Comments:Schedule appointment as soon as possible With:REGIS DAVILA MD Address: [address] [place] [address] Hematology [place] [address]- When:Within 4 Week(s) Comments:Schedule appointment as soon as possible With:GERBER PINA DO Address: [address] [place] [address]- When:1-2 days Comments:Please call the office to schedule a hospital follow up appointment. [facility] 01-28-2025 Note Discharge Instructions Thank you for allowing [facility] to assist you with your healthcare needs. The following is importantdischarge information regarding your hospital visit. Your Care Team GERBER PINA DO Your Diagnosis Anemia CHF (congestive heart failure) Hyperglycemia SOB (shortness of breath) What to do next Follow Up Appointments Follow Up with ZACHARY MELGOZA MD When:In 2 weeks Where:[address] [facility] [address] [facility] and Vascular [facility] [place] [address]- [phone] Additional Information: Schedule appointment as soon as possible Follow Up with Gynecology When:In 4 weeks Additional Information: Schedule appointment as soon as possible Follow Up with REGIS DAVILA MD When:In 4 weeks Where:[address] [facility] [place]ematology [place] [address]- Additional Information: Schedule appointment as soon as possible Follow Up with GERBER PINA DO When:Within 1-2 days Where:[address] [place] [address]- Additional Information: Please call the office to schedule a hospital follow up appointment. The Following Activity and Diet Have Been Ordered for You Discharge Activity - Ordered -- Resume your pre-hospitalization activity, 05/14/24 9:30:00 EST Discharge Diet - Ordered -- Type of Diet: Cardiac, Calories Permitted: 1800 kcal, No changes were made to your diet during your hospital stay. Please resume your pre hospitalization diet on discharge., 05/14/24 9:30:00 EST The Following Equipment Has Been Ordered for You Discharge Home Equipment Discharge Blood Glucose Monitoring - Ordered -- When to Test: Before each meal and at bedtime The Following Treatments Have Been Ordered for You Discharge Labs Discharge Outpatient Labwork - Ordered -- BMP, magnesium level, CBC, CHF, anemia, follow-up within: 1 week, Results Notify to: GERBER PINA DO Results Notify to: ZACHARY MELGOZA MD, CC results to also hematology at [facility]: Dr. Davila, 05/14/24 9:30:00 EST Discharge Radiology No qualifying data available. Other Therapies Discharge Blood Glucose Monitoring - Ordered -- When to Test: Before each meal and at bedtime Post Acute Orders No qualifying data available. Someone Will Contact You Regarding These Home Health Referrals No home referrals have been ordered for you. No one will call you. Allergies penicillin (Mild) vomiting Latex morphine Nausea and vomiting Medications Please ask your primary doctor or pharmacist before taking any other medication not listed, including over the counter drugs, herbal medications, vitamins and or supplements as they may interact withyour home medications. What How Much When Instructions Last Dose New carvedilol (Coreg 3.125 mg oral tablet) 1 tab(s) by mouth Twice daily with meals Pickup at [facility] New clopidogrel (Plavix 75 mg oral tablet) 1 tab(s) by mouth Once a day Pickup at [facility] New dapagliflozin (Farxiga 5 mg oral tablet) 1 tab(s) by mouth Once a day (in the morning) Pickup at [facility] New furosemide (Lasix 40 mg oral tablet) 1 tab(s) by mouth Once a day Pickup at [facility] New magnesium oxide (magnesium oxide 400 mg oral tablet) 1 tab(s) by mouth Two (2) times a day Duration: 14 Days Pickup at [facility] New pantoprazole (pantoprazole 40 mg oral enteric coated tablet) 1 tab(s) by mouth Once a day before a meal Pickup at [facility] New sacubitril-valsartan (Entresto 24 mg-26 mg oral tablet) 1 tab(s) by mouth Two (2) times a day Pickup at [facility] New spironolactone (spironolactone 25 mg oral tablet) 1 tab(s) by mouth Once a day with a meal Pickup at [facility] Changed insulin glargine (Lantus 100 units/ mL10 ml vial solution) 12 unit(s) Subcutaneous (INT) Daily at bedtime Pickup at [facility] Unchanged acetaminophen 650 Milligram by mouth Every 6 hours as needed for Pain, scale 1-10 Unchanged atorvastatin (atorvastatin 40 mg oral tablet) 1 tab(s) by mouth Once a day Duration: 60 Days Pickup at [facility] Unchanged DME (Alcohol Swabs) See instructions 1 box, Use one alcohol swab to clean finger TID as directed for blood sugar checks Unchanged DME (Blood Glucose Test Machine) See instructions Use glucometer daily as directed for blood sugar checks. Dispense insurance preferred device. Unchanged DME (Blood Glucose Test Strips) See instructions Use one test strip to check blood sugar TID as directed. Dispense insurance preferred test strips. 1 box of 100 strips Unchanged DME (Lancets) See instructions Use one lancet to carmen finger for blood sugar testing TID as directed. Dispense insurance preferred lancets.1 box Unchanged DME (Pen needles) See instructions Use one pen needle to inject insulin TID as directed. qs for 1 month supply Unchanged ferrous sulfate 325 Milligram by mouth Three (3) times a day Unchanged folic acid (folic acid 1 mg oral tablet) 1 tab(s) by mouth Once a day Duration: 14 Days Unchanged insulin lispro (HumaLOG) (Insulin Lispro KwikPen 100 units/ mL injectable solution) 0.06 Milliliter Subcutaneous Three (3) times a day before meals Duration: 90 Days Unchanged lisinopril 10 Milligram by mouth Once a day Pharmacy Information [facility]: [address] [place] [address] [phone] What How Much When Comments Stop Taking losartan (losartan 50 mg oral tablet) 1 tab(s) by mouth Once a day Duration: 60 Days Stop Taking metoprolol (metoprolol succinate 100 mg oral TABLET extended release) 1 tab(s) by mouth Two (2) times a day Duration: 60 Days Stop Taking ticagrelor (Brilinta (ticagrelor) 90 mg oral tablet) 1 tab(s) by mouth Two (2) times a day Duration: 60 Days Please take this list to your next doctor s visit. Bring all medications you take, including over the counter medications, herbals and other supplements with you to your doctor s visit. Patients and families are reminded to discard old lists and to update any records with all medication providers or retail pharmacies. Education Materials Heart Failure, Self Care Heart failure is a serious condition. This document explains the things you need to do to take careof yourself after a heart failure diagnosis. You may be asked to change your diet, take certain medicines, and make other lifestyle changes in order to stay as healthy as possible. Your health care provider may also give you more specific instructions. If you have problems or questions, contact your health care provider. What are the risks? Having heart failure puts you at higher risk for certain problems. These problems can get worse if you do not take good care of yourself. Problems may include: Blood clotting problems. This may cause a stroke. Damage to the kidneys, liver, or lungs. Abnormal heart rhythms. Supplies needed: Scale for monitoring weight. Blood pressure monitor. Notebook. Medicines. How to care for yourself when you have heart failure Medicines Take yetx-rje-osratpu and prescription medicines only as told by your health care provider. Medicines reduce the workload of your heart, slow the progression of heart failure, and improve symptoms. Take your medicines every day. Do not stop taking your medicine unless your health care provider tells you to do so. Do not skip any dose of medicine. Refill your prescriptions before you run out of medicine. Eating and drinking Eat heart-healthy foods. Talk with a dietitian to make an eating plan that is right for you. ? Choose foods that contain no trans fat and are low in saturated fat and cholesterol. Healthy choices include fresh or frozen fruits and vegetables, fish, lean meats, legumes, fat-free or low-fat dairy products, and whole-grain or high-fiber foods. ? Limit salt (sodium) if told by your health care provider. Sodium restriction may reduce symptoms ofheart failure. Ask a dietitian to recommend heart-healthy seasonings. ? Use healthy cooking methods instead of frying. Healthy methods include roasting, grilling, broiling, baking, poaching, steaming, and stir-frying. Limit your fluid intake, if directed by your health care provider. Fluid restriction may reduce symptoms of heart failure. Alcohol use Do not drink alcohol if: ? Your health care provider tells you not to drink. ? Your heart was damaged by alcohol, or you have severe heart failure. ? You are , may be , or are planning to become . If you drink alcohol: ? Limit how much you use to: ? 0 1 drink a day for women. ? 0 2 drinks a day for men. ? Be aware of how much alcohol is in your drink. In the [place] one drink equals one 12 oz bottle of beer (355 mL), one 5 oz glass of wine (148 mL), or one 1 oz glass of hard liquor (44 mL). Lifestyle Do not use any products that contain nicotine or tobacco, such as cigarettes, e- cigarettes, and chewing tobacco. If you need help quitting, ask your health care provider. ? Do not use nicotine gum or patches before talking to your health care provider. Do not use illegal drugs. Work with your health care provider to safely reach the right body weight. Do physical activity if told by your health care provider. Talk to your health care provider beforeyou begin an exercise if: ? You are an older adult. ? You have severe heart failure. Learn to manage stress. If you need help to do this, ask your health care provider. Participate in or seek rehabilitation as needed to keep or improve your independence and quality oflife. Plan rest periods when you get tired. Monitoring important information Weigh yourself every day. This will help you to notice if too much fluid is building up in your body. ? Weigh yourself every morning after you urinate and before you eat breakfast. ? Wear the same amount of clothing each time you weigh yourself. ? Record your daily weight. Provide your health care provider with your weight record. Monitor and record your pulse and blood pressure as told by your health care provider. Dealing with extreme temperatures If the weather is extremely hot: ? Avoid vigorous physical activity. ? Use air conditioning or fans, or find a cooler location. ? Avoid caffeine and alcohol. ? Wear loose-fitting, lightweight, and light-colored clothing. If the weather is extremely cold: ? Avoid vigorous activity. ? Layer your clothes. ? Wear mittens or gloves, a hat, and a scarf when you go outside. ? Avoid alcohol. Follow these instructions at home: Stay up to date with vaccines. Pneumococcal and flu (influenza) vaccines are especially important in preventing infections of the airways. Keep all follow-up visits as told by your health care provider. This is important. Contact a health care provider if you: Have a rapid weight gain. Have increasing shortness of breath. Are unable to participate in your usual physical activities. Get tired easily. Cough more than normal, especially with physical activity. Lose your appetite or feel nauseous. Have any swelling or more swelling in areas such as your hands, feet, ankles, or abdomen. Are unable to sleep because it is hard to breathe. Feel like your heart is beating quickly (palpitations). Become dizzy or light-headed when you stand up. Get help right away if you: Have trouble breathing. Notice or your family notices a change in your awareness, such as having trouble staying awake or concentrating. Have pain or discomfort in your chest. Have an episode of fainting (syncope). These symptoms may represent a serious problem that is an emergency. Do not wait to see if the symptoms will go away. Get medical help right away. Call your local emergency services (911 in the [place] Do not drive yourself to the hospital. Summary Heart failure is a serious condition. To care for yourself, you may be asked to change your diet, take certain medicines, and make other lifestyle changes. Take your medicines every day. Do not stop taking them unless your health care provider tells you to do so. Eat heart-healthy foods, such as fresh or frozen fruits and vegetables, fish, lean meats, legumes, fat-free or low-fat dairy products, and whole-grain or high-fiber foods. Ask your health care provider if you have any alcohol restrictions. You may have to stop drinking alcohol if you have severe heart failure. Contact your health care provider if you notice problems, such as rapid weight gain or a fast heartbeat. Get help right away if you faint, or have chest pain or trouble breathing. This information is not intended to replace advice given to you by your health care provider. Make sure you discuss any questions you have with your health care provider. Document Released: 07/17/2019 Document Revised: 07/16/2019 Document Reviewed: 07/17/2019 [employer] Patient Education 2020 [employer] Additional Information VACCINATE! IT SAVES LIVES! Members of the community who have not yet received the COVID-19 vaccine and would like to receive it can visit one of [facility] vaccine clinics. There are many vaccine clinic locations within the [facility]. For locations and available times, please visit https://gettheshot.coronavirus.[place].gov/. It is important to note that some COVID mobile vaccine clinics are held outdoors and may be canceled in rainy or stormy conditions. To learn more about pediatric vaccinations (ages 5-11), we invite you to visit the [facility] webpage. [email or web address]/[email or web address] [email or web address] learn more about the COVID-19 vaccine, we invite you to visit the CDC website for a list of frequently asked questions.https://www.cdc.gov/coronavirus/2019-ncov/vaccines/faq.html [facility] Patient Portal Access Instructions: Stay connected with your healthcare team and access your personal medical information anytime with the [facility] Patient Portal. Please follow the directions below to create your [facility] account: 1.Access the email account you provided upon registration to the hospital/physician office.2.Look for an invitation email from [facility].3.Open the email and access the invitation link: AcceptInvitation to [facility].4.Fill in the required randolph to create your account. To access your account, visit [employer]. Click the blue button labeled Access Patient Portal and then log in with the username and password that you created in the steps above. You will be able to view your test results, lab results, a summary of your visits, upcoming appointments and more. There is also a convenient messaging option where you can send secure messages to your p Raz[employer]vider. In addition, you will have the ability to download any documents or summaries to your computer and/or send the information securely to a physician. Remember that your healthcare information is confidential, so carefully consider who you will allowto register on the [facility] Patient Portal for access to your information. You can also access the [facility] Patient Portal on the [employer] baltazar. Simply click on Patient Portal and then log into your account. If you would like to receive a full copy of your medical records, please contact the [facility] Medical Records Department by calling [phone], Monday through Monday between 8 a.m. and 4:30 p.m. HOW TO SAFELY DISPOSE OF PRESCRIPTION MEDICATIONS Please use one of the following methods to safely dispose of your unused medications. 1.Use a drug disposal kit: the drug disposal pouch allows you to safely discard your old and unuseddrugs. Ask your nurse to give you one when you are discharged.2.Visit a local take-back location: Many local pharmacies and police departments have programs that collect old and unwanted prescriptiondrugs. Call your local pharmacy or go to http://[email or web address]/4N2Di4p to find one close to you.3.Make use of household items: Use cat litter or old coffee grounds to dispose medications if other options arenot available. Mix your drugs with these household products, seal them in an airtight container andthrow it into the garbage. Call [facility]: [phone] to be sure your drugs can be disposed of in this way. Some medicines may require a different approach.4.Never flush your medications down the toilet. IF YOU HAVE BEEN PRESCRIBED AN OPIOID FOR PAIN If you have been prescribed an opioid (such as hydrocodone, oxycodone or morphine), it is critical to understand the possible side effects and risks of opioid pain medications. Even when taken as directed, opioids can have several side effects including: Tolerance, meaning you might need to take more of a medication for the same pain relief. Nausea, vomiting and/or constipation. Sleepiness, dizziness, dry mouth, confusion, depression or itching. Physical dependence, meaning you have withdrawal symptoms when a medication is stopped, can develop within a few days. KNOW YOUR RESPONSIBILITIES It is important to know exactly how much and how often to take the opioid pain medications you are prescribed. Never take opioids in higher amounts or more often than prescribed. Do not combine opioids with alcohol or other drugs that cause drowsiness, such as benzodiazepines, also known as benzos, including diazepam and alprazolam, muscle relaxants or sleep aids. Never sell or share prescription opioids. This is illegal. Store opioids in a secure place and out of reach of others (including children, family, friends and visitors). The last page of this document has been signed and retained as a CHART COPY. Signatures Patient Education Materials Heart Failure, Self Care Medication Leaflets My discharge plan and instructions have been reviewed and explained to me and IMEGAN TONYA L understand my current condition and have read and understand these discharge instructions. I have received a written copy of the plan/instructions. If I have questions, I am aware that I should contact my doctor. 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 Subjective No acute events. Patient states that she is feeling better anxious to go home. Noted patient still volume overloaded on exam and discussed this with the patient. Objective Vitals and Measurements T: 36.9 C (Oral) TMIN: 36.5 C (Oral) TMAX: 37.2 C (Oral) HR: 101 (Monitored) RR: 18 BP: 127/86 SpO2: 98% WT: 93 kg Intake and Output 7AM Yesterday to 7AM Today Intake and Output (Last 24 hours) Intake Oral Intake 710.00 Output Stool Count 0.00 Urine Count 4.00 Total Summary Total Intake 710.00 Total Output 0.00 Fluid Balance 710.00 Physical Exam General Appearance: Alert and oriented x3, no acute distress Head: Normocephalic atraumatic EENT: Conjunctiva pink, sclera normal, Neck: No lumps or swellings noted Cardiac: S1, S2, no S3 or S4, improved JVD Lungs: Clear to auscultation bilaterally Abdomen: Soft, nontender, nondistended bowel sounds positive Musculoskeletal: No joint swelling Extremities: Warm well perfused, 1-2+ LE edema Neurological: Grossly intact nonfocal Skin: No rashes Psychiatric: Normal mood, normal affect Weight Current Weight Dosing Weight: 80.4 kg (05/11/24) Current Weight: 93 kg (05/13/24) Dosing Weight: 80.8 kg (05/10/24) Current Weight: 78.5 kg (05/12/24) Medications Medications (18) Active Scheduled: (10) carvedilol 3.125 mg tablet 3.125 mg 1 tab(s), Oral, BIDM clopidogrel 75 mg Tablet 75 mg 1 tab(s), Oral, qDay dapagliflozin 5 mg tablet 5 mg 1 tab(s), Oral, qAM furosemide 40 mg tablet 40 mg 1 tab(s), Oral, qDay insulin glargine 12 unit(s) 0.12 mL, Subcutaneous (INT), qHS insulin lispro 100 units/mL Soln (3 mL) Give 0-15 units/dose, Subcutaneous, TIDAC magnesium oxide 400 mg Tablet 400 mg 1 tab(s), Oral, BID pantoprazole 40 mg EC tablet 40 mg 1 tab(s), Oral, qDayAC sacubitril-valsartan 24-26 mg oral tablet 1 tab(s), Oral, BID spironolactone 25 mg tablet 25 mg 1 tab(s), Oral, qDayM Continuous: (0) PRN: (8) acetaminophen 325 mg Tablet 650 mg 2 tab(s), Oral, q4h acetaminophen 325 mg Tablet 650 mg 2 tab(s), Oral, q4h albuterol - ipratropium 2.5 mg-0.5 mg/3 mL Inhal Pranav UD 3 mL, Inhalation, q4hRT dextrose 50% Solution Disp syringe 50 mL 12.5 gram(s) 25 mL, IV Push, AsDirected guaifenesin 100 mg/5 mL Liquid 120 mL 200 mg 10 mL, Oral, q4h melatonin 3 mg tablet 3 mg 1 tab(s), Oral, qHS ondansetron 2 mg/ 1 mL 2 mL INJ 4 mg 2 mL, IV Push, q4h polyethylene glycol 3350 - UD packet 17 gram(s) 15 mL, Oral, qDay Lab Results 05/13 10:47 Potassium Level: 4.2 05/13 06:03 Hgb: 7.4 L Hct: 24.6 L Glucose Level: 296 H Sodium Level: 136 Potassium Level: 5.0 BUN: 30.0 H Creatinine Lvl (s): 1.07 Imaging Results and Diagnostics US Pelvis Non-OB W/Transvaginal Result Date: May 11, 2024 Verified By: POLO ESTRADA MD CLINICAL STATEMENT: IMPRESSION: No acute findings. XR Chest 2 Views Result Date: May 09, 2024 Verified By: POLO ESTRADA MD CLINICAL STATEMENT: IMPRESSION: Low lung volumes with perihilar and lower lung field opacities concerning forpneumonia or other infiltrates. Correlate clinically and follow-up toresolution. EKG No qualifying data available. Assessment/Plan Acute chronic heart failure with reduced ejection fraction Severe anemia Anabaptism Moderate mitral regurgitation mild to moderate tricuspid regurgitation History of CAD s/p PCI Patient tolerating HF GDMT well with the initiation of Entresto in addition to Coreg, Farxiga, and spironolactone. Patient remains hemodynamically stable. Discussed with primary team about patient wanting to be discharged. If patient were to be discharged, would recommend sending with 40 mg p.o. Lasix daily and keeping the current HF GDMT medication doses the same. Would recommend following up a BMP in 1 week as an outpatient. Outpatient cardiology follow-up in 2 weeks recommended. Cardiology will sign off. Reach out if any questions. Digitally Signed by JOSEP KINNEY DO on 05/13/2024 07:54 PM Digitally Signed by YASH CHÁVEZ MD [facility] [id number] Note Date of Service 05/13/2024 Chief Complaint This is a pleasant 54-year-old -Congolese Wallisian-speaking female with a known history of type 2 diabetes with history of DKA, CAD status post multiple stents, hypertension, hyperlipidemia, HFpEF now with reduced EF of 40 to 45%, iron deficiency anemia, Anabaptism, who presented to theED due to ongoing severe bilateral lower extremity edema, dyspnea with minimal exertion. She apparently was discharged about a week ago from [facility] and was managed there for anemia, with a hemoglobin of 5, was noted to be iron deficient and was given iron infusions, was seen by java front end web developer and had an upper and lower endoscopy which did not show any concerning findings. On presentation, patient's hemoglobin was 6.7, in October it was 11.3. No leukocytosis, proBNP was elevated greater than 13,000, high-sensitivity troponin was negative. Did not have any infectious etiology. Patient endorsed that she was having menorrhagia but was not actively in her menstrual period. She was seen by CHF team, was on Lasix drip, GDMT has been optimized, recommending Lasix 40 mg daily with repeat BMP in 1 week and follow-up with cardiology in 2 weeks. Patient had an echocardiogram which showeda ejection fraction of 40 to 45%, started on Entresto. Was also seen by hematology, received IV iron, will follow-up with them in the outpatient setting for further ongoing care. Hemoglobin has been stable above 7. No other cause found for her anemia except for the menorrhagia that she was complaining of. Was seen by gynecology, had an ultrasound which showed a small polyp/cyst on the fundus of the uterus, shehad a endometrial biopsy along with an IUD placement. Recommending following up with her usual java application developer in outpatient setting for ongoing care. From [facility] standpoint, she is optimized for discharge, can use TXA with her menstrual period of heavy but at this time do not recommend it as IUD should be taking care of this. Unfortunately, patient has expressed that she is currently not having adequate insurance and that this will kick in in May, awaiting help from case management refer prescription assistance, prescriptions being sent to our pharmacy here for assistance. Unfortunately, the pharmacy was closed by the time of discharge, plan is for discharge tomorrow if medications can be arranged. Subjective Patient is resting in bed, she states that the lower extremity swelling that she has has improved significantly, she is not feeling short of breath. She is able to ambulate without difficulty. No fever or chills. No chest pain. Objective Vitals and Measurements T: 37.2 C (Oral) TMIN: 36.5 C (Oral) TMAX: 37.2 C (Oral) HR: 97 (Monitored) RR: 18 BP: 123/79 SpO2:97% WT: 93 kg Intake and Output 7AM Yesterday to 7AM Today Intake and Output (Last 24 hours) Intake Oral Intake 710.00 Output Stool Count 0.00 Urine Count 4.00 Total Summary Total Intake 710.00 Total Output 0.00 Fluid Balance 710.00 Physical Exam Resting in bed, 1+ pitting edema bilaterally. JVP mildly elevated. Chest is clear, no crackles or rhonchi or wheezing. Alert oriented x 3, no focal neurologic deficits. Weight Current Weight Dosing Weight: 80.4 kg (05/11/24) Current Weight: 93 kg (05/13/24) Dosing Weight: 80.8 kg (05/10/24) Current Weight: 78.5 kg (05/12/24) Medications Medications (18) Active Scheduled: (10) carvedilol 3.125 mg tablet 3.125 mg 1 tab(s), Oral, BIDM clopidogrel 75 mg Tablet 75 mg 1 tab(s), Oral, qDay dapagliflozin 5 mg tablet 5 mg 1 tab(s), Oral, qAM furosemide 40 mg tablet 40 mg 1 tab(s), Oral, qDay insulin glargine 12 unit(s) 0.12 mL, Subcutaneous (INT), qHS insulin lispro 100 units/mL Soln (3 mL) Give 0-15 units/dose, Subcutaneous, TIDAC magnesium oxide 400 mg Tablet 400 mg 1 tab(s), Oral, BID pantoprazole 40 mg EC tablet 40 mg 1 tab(s), Oral, qDayAC sacubitril-valsartan 24-26 mg oral tablet 1 tab(s), Oral, BID spironolactone 25 mg tablet 25 mg 1 tab(s), Oral, qDayM Continuous: (0) PRN: (8) acetaminophen 325 mg Tablet 650 mg 2 tab(s), Oral, q4h acetaminophen 325 mg Tablet 650 mg 2 tab(s), Oral, q4h albuterol - ipratropium 2.5 mg-0.5 mg/3 mL Inhal Pranav UD 3 mL, Inhalation, q4hRT dextrose 50% Solution Disp syringe 50 mL 12.5 gram(s) 25 mL, IV Push, AsDirected guaifenesin 100 mg/5 mL Liquid 120 mL 200 mg 10 mL, Oral, q4h melatonin 3 mg tablet 3 mg 1 tab(s), Oral, qHS ondansetron 2 mg/ 1 mL 2 mL INJ 4 mg 2 mL, IV Push, q4h polyethylene glycol 3350 - UD packet 17 gram(s) 15 mL, Oral, qDay Lab Results 05/13 10:47 Potassium Level: 4.2 05/13 06:03 Hgb: 7.4 L Hct: 24.6 L Glucose Level: 296 H Sodium Level: 136 Potassium Level: 5.0 BUN: 30.0 H Creatinine Lvl (s): 1.07 05/12 06:15 WBC: 4.0 L Hgb: 7.0 L Hct: 23.6 L Platelet: 298 Neutrophil %: 66.1 Glucose Level: 309 H Sodium Level: 136 Potassium Level: 4.9 BUN: 25.0 H Creatinine Lvl (s): 1.06 Imaging Results and Diagnostics US Pelvis Non-OB W/Transvaginal Result Date: May 11, 2024 Verified By: POLO ESTRADA MD CLINICAL STATEMENT: IMPRESSION: No acute findings. XR Chest 2 Views Result Date: May 09, 2024 Verified By: POLO ESTRADA MD CLINICAL STATEMENT: IMPRESSION: Low lung volumes with perihilar and lower lung field opacities concerning forpneumonia or other infiltrates. Correlate clinically and follow-up toresolution. EKG No qualifying data available. Assessment/Plan Acute exacerbation of chronic heart failure with now reduced ejection fraction of 40 to 45%, grade 1 diastolic dysfunction Moderate MR Pulmonary arterial hypertension with RVSP of 49 Mild to moderate TR Acute on chronic anemia without any active eviden Menorrhagia Endometrial cyst at the fundus measuring 0.6 cm, recommending nonsurgical management, status post endometrial biopsy, IUD placement, recommending TXA to minimize blood loss during her menstrual period Iron deficiency anemia Anabaptism, avoid blood products Bilateral lower extremity edema, secondary to CHF, negative for DVT Hypoglycemia iatrogenic, with history of type 2 diabetes DVT prophylaxis: SCDs CODE STATUS: Full code Plan: At present, patient is being followed by cardiology for her CHF: Has been started on low-dose Coreg twice a day, Lasix drip stopped, mild uptrend in creatinine function but stable. Started on Farxiga, Brilinta changed to Plavix. Currently on Entresto. Renal function stable. Placed on spironolactone. Follow-up with cardiology in the outpatient setting. Prior CAD with stents. Echocardiogram with an ejection fraction of 40 to 45%, grade 1 diastolic dysfunction. Strict I's and O's, daily weights, low-sodium diet. Elevate lower extremities, PAULINE hoses to lower extremities. Doppler studies were performed to rule out VTE, no evidence of DVT/SVT. Telemetry reviewed, sinus rhythm. Discussed with cardiology, recommend adding Lasix 40 mg daily with repeat BMP in 1 week and outpatient follow-up with cardiology in 2 weeks. From their standpoint, patient is otherwise optimal for discharge. Anemia appears to be stable at this time. No evidence of any blood loss. Continue to follow-up withhematology in the outpatient setting as well as her previous established GI doctor. Has been seen by gynecology given she was complaining of menorrhagia. Her pelvic ultrasound showed a endometrial cyst measuring 0.6 cm, also recommended an endometrial biopsy. She is agreeable to this, this was performed today and pathology needs followed up in the outpatient setting. Chlamydia and gonorrhea negative. Status post IUD placement. Recommending TXA use during her menstrual period. Follow-up with her previous established java application developer once her insurance kicks in upon discharge. I appreciate the assistance and care provided by the gynecology team. Thank you. Continue with iron supplementation in the outpatient setting, received 3 doses of IV iron here. Hb SS is being evaluated by hematology. Pending labs to be followed in the clinic with the patient is discharged. Patient had an episode of hypoglycemia due to the fact that she was noted to have Lantus 30 units at home which was resumed here. But the patient clarified that she only takes this as needed at home. At this time, blood glucose levels are elevated, increase her Lantus to 12 units every night based on sliding scale needs. Continue with high-dose sliding scale. Avoid hypoglycemia, will discontinue her current insulin regimen. Started on Farxiga. ADA diet. Monitor potassium and magnesium closely. Monitor kidney function. Replete to maintain a potassium of 4, magnesium of 2. Plan of care discussed with patient. Awaiting prescription assistance, planning for discharge tomorrow once this is arranged. This is a note transcribed by me, the attending physician on service using the 'Bindo' dictation software. Please excuse any grammatical errors, repetitions/duplications if any are present in the entirety of this note. Thank you. Level of Care Indication SD monitor (CHF exacerbation) DVT Prophylaxis Other: specify in note Maintenance IVF Indication NA / No maintenance IVF Indwelling Urinary Catheter Indication NA No indwelling catheter Anticipated Timeline of Discharge 24 hours Meds to beds/prescription assistance is needed. Anticipated DC Disposition Home without services Digitally Signed by ABRAHAN LUNDBERG MD on 05/13/2024 05:23 PM [facility] [id number] Gynecology Consult note Date of Service 05/11/24 Reason for Consultation Anemia in the setting of Menorrhagia Referring Physician Dr. Lundberg History of Present Illness Patient is a 54 yo female who was admitted on 05/10/2024 due to anemia and CHF exacerbation. She initially presented for shortness of breath and was found to have heart failure exacerbation and anemia with a Hbg of 6.1. She states that she has regular periods every month, but over the past yearshe has has intermittent light and heavy menstrual cycles. She is usually on her menstrual cycle for 3 days. On the months she is experiencing heavy bleeding she uses maxi pads and heavy tampons every 2 hrs. She also reports passing clots the size of sabra and intermittent cramping. She denies anypelvic pain or abdominal pain. She has never a history of heavy periods prior to the past year, 2023. She has not seen in OBGYN in at least 2 years, after her last pap smear. She denies any history of fibroids, bleeding disorders, prior ablation, cervical surgery. Of note she was admitted at [facility] recently for sever anemia, Hgb 5 s/p IV iron infusions. Gastroenterology was consulted, she underwent an EGD and a colonoscopy which were within normal limits per patient. Record for the EGD was seen on [facility]. Patient has never been on hormonal contraceptive methods. She is a Jehovah's witnessand prefers to not receive any blood products or blood product agents. Patient denies change in weight despite or appetite. Patient denies any chest pain. Patient denies nausea, vomiting, bloating, abdominal pain. Patient denies any urinary complaints such as dysuria orhematuria. Patient denies vaginal discharge or vaginal bleeding. Patient denies constipation or diarrhea. No further concerns or complaints at this time and all questions were addressed thoroughly. 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 Last heavy period in March Menarche: 14 y.o Patient denies history of STDs. Control: Has never been on hormonal control Denies history hormone replacement therapy No history of abnormal pap smears. Most recent Pap smears: 2021 - WN, HPV negative Mammograms: 2021 - Colonoscopy: Performed on previous admission in [facility] - No abnormalities noted on exam. EGD: Normal on prior admission @ [facility] Medical History: CHF Type 2 Diabetes Mellitus Menorrhagia CAD s/p stent placements HTN HLD Anemia Abnormal uterine bleeding Surgical history: D&C EGD 2024 Colonoscopy 2015 Axillary Nipple removal Social history: No smoking, drinking, drugs Family history: No significant family Hx of cancers (breast, ovary, uterine, colon, stomach) Allergies: Penicillin Latex Morphine Review of Systems See HPI Physical Exam Vitals and Measurements T: 36.5 C (Oral) TMIN: 36.4 C (Oral) TMAX: 36.9 C (Oral) HR: 100 (Monitored) RR: 16 BP: 127/80 SpO2: 99% WT: 80.4 kg Weight Dosing Weight: 80.4 kg (05/11/24) Dosing Weight: 80.8 kg (05/10/24) Physical Exam: General: NAD Cardiovascular: no JVD Respiratory: no labored breathing Abdomen: soft, gravid, nontender :pending Extremities: minimal edema Lab Results 05/11 10:07 WBC: 5.0 Hgb: 7.0 L Hct: 22.8 L Platelet: 353 Neutrophil %: 80.0 H Glucose Level: 111 H Sodium Level: 138 Potassium Level: 3.5 BUN: 17.0 Creatinine Lvl (s): 0.90 05/10 06:11 WBC: 5.5 Hgb: 6.1 C Hct: 19.9 L Platelet: 333 Neutrophil %: 65.7 Protime: 11.8 PT International Ratio: 1.0 Glucose Level: 223 H Sodium Level: 135 L Potassium Level: 4.2 BUN: 11.0 Creatinine Lvl (s): 0.70 Imaging Results and Diagnostics US Pelvis Non-OB W/Transvaginal Result Date: May 11, 2024 Verified By: POLO ESTRADA MD CLINICAL STATEMENT: IMPRESSION: No acute findings. XR Chest 2 Views Result Date: May 09, 2024 Verified By: POLO ESTRADA MD CLINICAL STATEMENT: IMPRESSION: Low lung volumes with perihilar and lower lung field opacities concerning forpneumonia or other infiltrates. Correlate clinically and follow-up toresolution. Assessment/Plan Patient is a 54 year old female who was admitted due to CHF exacerbation and anemia. 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 >>Anemia/Menorrhagia - Hb.1 -> 7.0. Pt is a Jehovah witness so does not want blood products - She has been receiving IV Iron infusions and was admitted 10 days ago for anemia as well in [facility]. - She denies any dizziness or SOB currently - Denies any abdominal pain/pelvic pain - She has a recent Hx of irregular periods for the past 1 yr with intermittent light and heavy cycles - Her last heavy period was in March and since then she has had one light period on 04/17/24. 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 0.6 cm cyst-like structure at the fundus. Right Ovary: Right ovary is within normal limits. Left Ovary: Left ovary is within normal limits. >> CHF - Managed per primary team >>T2DM - Managed per primary team >>HTN - Managed per primary team >> HLD - Managed per primary team Dispo: - Plan for EMB to evaluate endometrial lining due to sudden changes with heavy bleeding in the perimenopausal period - Discussed IUD placement with the patient and she is agreeable at bedside -U/S unremarkable Pt seen with Dr. England Problem List/Past Medical History CHF Type 2 Diabetes Mellitus Menorrhagia CAD s/p stent placements HTN HLD Anemia Abnormal uterine bleeding Procedure/Surgical History D&C EGD 2024 Colonoscopy 2024, 2015 Axillary Nipple removal Medications Inpatient Brilinta (ticagrelor), 90 mg= 1 tab(s), Oral, BID Dextrose 50% IV Push, 12.5 gram(s)= 25 mL, IV Push, AsDirected, PRN DuoNeb, 3 mL, Inhalation, q4hRT, PRN Ferrlecit furosemide for IV 100 mg [10 mg/hr] + Sodium Chloride 0.9% intravenous solution 90 mL guaiFENesin, 200 mg= 10 mL, Oral, q4h, PRN HumaLOG 100 units/mL subcutaneous solution, Give 0-15 units/dose, Subcutaneous, TIDAC Jardiance, 10 mg= 1 tab(s), Oral, qAM KCL, 40 mEq= 2 tab(s), Oral, qDayM Lantus, 5 unit(s)= 0.05 mL, Subcutaneous (INT), qHS losartan, 25 mg= 1 tab(s), Oral, qDay magnesium oxide, 400 mg= 1 tab(s), Oral, BID magnesium sulfate for IV bolus, 2 gram(s)= 50 mL, IV Piggyback, Once melatonin, 3 mg= 1 tab(s), Oral, qHS, PRN Miralax Powder Packet, 17 gram(s)= 15 mL, Oral, qDay, PRN pantoprazole, 40 mg= 1 tab(s), Oral, qDayAC potassium chloride, 40 mEq= 2 tab(s), Oral, Once spironolactone, 25 mg= 1 tab(s), Oral, qDayM Tylenol, 650 mg= 2 tab(s), Oral, q4h, PRN Tylenol, 650 mg= 2 tab(s), Oral, q4h, PRN Zofran, 4 mg= 2 mL, IV Push, q4h, PRN Home acetaminophen, 650 mg, Oral, q6hr, PRN Alcohol Swabs, See Instructions atorvastatin 40 mg oral tablet, 40 mg= 1 tab(s), Oral, qDay, Not taking Blood Glucose Test Machine, See Instructions Blood Glucose Test Strips, See Instructions Brilinta (ticagrelor) 90 mg oral tablet, 90 mg= 1 tab(s), Oral, BID ferrous sulfate, 325 mg, Oral, TID folic acid 1 mg oral tablet, 1 mg= 1 tab(s), Oral, qDay, Not taking Insulin Lispro KwikPen 100 units/mL injectable solution, 6 unit(s)= 0.06 mL, Subcutaneous, TIDAC Lancets, See Instructions Lantus Solostar Pen 100 units/mL 3 mL Pen, 30 unit(s), Subcutaneous, qHS lisinopril, 10 mg, Oral, qDay losartan 50 mg oral tablet, 50 mg= 1 tab(s), Oral, qDay, Not taking metoprolol succinate 100 mg oral TABLET extended release, 100 mg= 1 tab(s), Oral, BID, Not taking Pen needles, See Instructions Allergies penicillin (Mild) vomiting Latex morphine Nausea and vomiting Social History Alcohol Use: Never., 11/09/2023 Substance Abuse Use: Never., 11/09/2023 Tobacco Nicotine Use: Never (less than 100 in lifetime)., 11/09/2023 Family History No significant family Hx of cancers (breast, ovary, uterine, colon, stomach) Immunizations No qualifying data available. Digitally Signed by GEO ZAMBRANO MD on 05/11/2024 06:56 PM Digitally Signed by SHARDA ENGLAND MD on 05/12/2024 01:41 AM [facility] [id number] Note Date of Service 05/13/2024 Chief Complaint Anemia in the setting of Menorrhagia Subjective Patient seen and examined at bedside this AM. No acute events overnight. Sleeping soundly upon entering room. Denies any cramping or pain after IUD placement yesterday. Having light vaginal spotting.No acute concerns this AM. Objective Vitals and Measurements T: 36.8 C (Oral) TMIN: 36.7 C (Oral) TMAX: 37.0 C (Oral) HR: 100 (Monitored) RR: 18 BP: 119/75 SpO2: 96% Intake and Output 7AM Yesterday to 7AM Today Intake and Output (Last 24 hours) Intake Oral Intake 480.00 Output Urine Voided 1100.00 Stool Count 0.00 Urine Count 2.00 Total Summary Total Intake 480.00 Total Output 1100.00 Fluid Balance -620.00 Physical Exam General Appearance: Resting comfortably, no acute distress Cardiac/Lungs: No increase work of breathing Abdomen: soft, non tender : deferred Extremities: Moves all extremities spontaneously, no edema Neurological: A&O x3 Skin: Warm, dry, Psychiatric: Cognition intact Weight Current Weight Dosing Weight: 80.4 kg (05/11/24) Current Weight: 78.5 kg (05/12/24) Dosing Weight: 80.8 kg (05/10/24) Medications Medications (17) Active Scheduled: (9) carvedilol 3.125 mg tablet 3.125 mg 1 tab(s), Oral, BIDM clopidogrel 75 mg Tablet 75 mg 1 tab(s), Oral, qDay dapagliflozin 5 mg tablet 5 mg 1 tab(s), Oral, qAM insulin glargine 12 unit(s) 0.12 mL, Subcutaneous (INT), qHS insulin lispro 100 units/mL Soln (3 mL) Give 0-15 units/dose, Subcutaneous, TIDAC magnesium oxide 400 mg Tablet 400 mg 1 tab(s), Oral, BID pantoprazole 40 mg EC tablet 40 mg 1 tab(s), Oral, qDayAC sacubitril-valsartan 24-26 mg oral tablet 1 tab(s), Oral, BID spironolactone 25 mg tablet 25 mg 1 tab(s), Oral, qDayM Continuous: (0) PRN: (8) acetaminophen 325 mg Tablet 650 mg 2 tab(s), Oral, q4h acetaminophen 325 mg Tablet 650 mg 2 tab(s), Oral, q4h albuterol - ipratropium 2.5 mg-0.5 mg/3 mL Inhal Pranav UD 3 mL, Inhalation, q4hRT dextrose 50% Solution Disp syringe 50 mL 12.5 gram(s) 25 mL, IV Push, AsDirected guaifenesin 100 mg/5 mL Liquid 120 mL 200 mg 10 mL, Oral, q4h melatonin 3 mg tablet 3 mg 1 tab(s), Oral, qHS ondansetron 2 mg/ 1 mL 2 mL INJ 4 mg 2 mL, IV Push, q4h polyethylene glycol 3350 - UD packet 17 gram(s) 15 mL, Oral, qDay Lab Results 05/12 06:15 WBC: 4.0 L Hgb: 7.0 L Hct: 23.6 L Platelet: 298 Neutrophil %: 66.1 Glucose Level: 309 H Sodium Level: 136 Potassium Level: 4.9 BUN: 25.0 H Creatinine Lvl (s): 1.06 Imaging Results and Diagnostics US Pelvis Non-OB W/Transvaginal Result Date: May 11, 2024 Verified By: POLO ESTRADA MD CLINICAL STATEMENT: IMPRESSION: No acute findings. XR Chest 2 Views Result Date: May 09, 2024 Verified By: POLO ESTRADA MD CLINICAL STATEMENT: IMPRESSION: Low lung volumes with perihilar and lower lung field opacities concerning forpneumonia or other infiltrates. Correlate clinically and follow-up toresolution. Assessment/Plan Patient is a 54 year old female who was admitted due to CHF exacerbation and anemia. 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 She is now s/p EMB with IUD placement by music video producer team yesterday (05/12). Of note, patient is a Anabaptism and declines blood products. >>Anemia/Menorrhagia - Federal Law Clerk consulted for patient with CHF exacerbation and anemia in the setting of AUB - Pt reports history of irregular periods x1 year with intermittent light and heavy cycles with herlast heavy period in March. Most recent period was light and started 04/17/24 - TVUS this admission unremarkable with endometrial stripe of 0.6cm, though left ovary was unable to be visualized - Patient also was recently admitted at [facility] for similar presentation and was found to have hemoglobin of 5.1 and has received multiple IV iron infusions at OSH - She is on antiplatelet therapy after cardiac cardiac stent placement. However no anticoagulation - Hematology is also pending, with Hgb electrophoresis results - This admission she is s/p x2 doses of Ferrlecit - She denies symptoms including dizziness, SOB - She is now s/p G/C collection, EMB, and IUD placement per Federal Law Clerk team on 05/02. - G/C negative. EMB pending. Hgb this AM pending. Dispo: Patient now s/p EMB and IUD placement. She is not currently a candidate for surgical management of her menstrual bleeding due to her anemia and refusal of blood products. Discussed with patient that strategic planning specialist menstrual cycles are generally expected after IUD placement, but that this adjustmentcan take several months. As a result, will defer starting on TXA at this time given her medical comorbidities and expecting bleeding to improve with IUD. Also discussed close follow up outpatient with an OBGYN. Patient lives in [place] and reported there's a [facility] OBGYN office she follows up with intermittently and she prefers to follow-up there. Remainder of management and care per primary team. Federal Law Clerk to sign off at this time. Please reach out with any additional concerns. Patient discussed with senior resident Dr. Martinez Digitally Signed by CHARBEL ESCOBAR MD on 05/13/2024 06:03 AM Digitally Signed by ED MARTINEZ DO on 05/13/2024 08:55 AM [id number] Note Date of Service 05/13/2024 Chief Complaint Anemia in the setting of Menorrhagia Subjective Patient seen and examined at bedside this AM. No acute events overnight. Sleeping soundly upon entering room. Denies any cramping or pain after IUD placement yesterday. Having light vaginal spotting.No acute concerns this AM. Objective Vitals and Measurements T: 36.8 C (Oral) TMIN: 36.7 C (Oral) TMAX: 37.0 C (Oral) HR: 100 (Monitored) RR: 18 BP: 119/75 SpO2: 96% Intake and Output 7AM Yesterday to 7AM Today Intake and Output (Last 24 hours) Intake Oral Intake 480.00 Output Urine Voided 1100.00 Stool Count 0.00 Urine Count 2.00 Total Summary Total Intake 480.00 Total Output 1100.00 Fluid Balance -620.00 Physical Exam General Appearance: Resting comfortably, no acute distress Cardiac/Lungs: No increase work of breathing Abdomen: soft, non tender : deferred Extremities: Moves all extremities spontaneously, no edema Neurological: A&O x3 Skin: Warm, dry, Psychiatric: Cognition intact Weight Current Weight Dosing Weight: 80.4 kg (05/11/24) Current Weight: 78.5 kg (05/12/24) Dosing Weight: 80.8 kg (05/10/24) Medications Medications (17) Active Scheduled: (9) carvedilol 3.125 mg tablet 3.125 mg 1 tab(s), Oral, BIDM clopidogrel 75 mg Tablet 75 mg 1 tab(s), Oral, qDay dapagliflozin 5 mg tablet 5 mg 1 tab(s), Oral, qAM insulin glargine 12 unit(s) 0.12 mL, Subcutaneous (INT), qHS insulin lispro 100 units/mL Soln (3 mL) Give 0-15 units/dose, Subcutaneous, TIDAC magnesium oxide 400 mg Tablet 400 mg 1 tab(s), Oral, BID pantoprazole 40 mg EC tablet 40 mg 1 tab(s), Oral, qDayAC sacubitril-valsartan 24-26 mg oral tablet 1 tab(s), Oral, BID spironolactone 25 mg tablet 25 mg 1 tab(s), Oral, qDayM Continuous: (0) PRN: (8) acetaminophen 325 mg Tablet 650 mg 2 tab(s), Oral, q4h acetaminophen 325 mg Tablet 650 mg 2 tab(s), Oral, q4h albuterol - ipratropium 2.5 mg-0.5 mg/3 mL Inhal Pranav UD 3 mL, Inhalation, q4hRT dextrose 50% Solution Disp syringe 50 mL 12.5 gram(s) 25 mL, IV Push, AsDirected guaifenesin 100 mg/5 mL Liquid 120 mL 200 mg 10 mL, Oral, q4h melatonin 3 mg tablet 3 mg 1 tab(s), Oral, qHS ondansetron 2 mg/ 1 mL 2 mL INJ 4 mg 2 mL, IV Push, q4h polyethylene glycol 3350 - UD packet 17 gram(s) 15 mL, Oral, qDay Lab Results 05/12 06:15 WBC: 4.0 L Hgb: 7.0 L Hct: 23.6 L Platelet: 298 Neutrophil %: 66.1 Glucose Level: 309 H Sodium Level: 136 Potassium Level: 4.9 BUN: 25.0 H Creatinine Lvl (s): 1.06 Imaging Results and Diagnostics US Pelvis Non-OB W/Transvaginal Result Date: May 11, 2024 Verified By: POLO ESTRADA MD CLINICAL STATEMENT: IMPRESSION: No acute findings. XR Chest 2 Views Result Date: May 09, 2024 Verified By: POLO ESTRADA MD CLINICAL STATEMENT: IMPRESSION: Low lung volumes with perihilar and lower lung field opacities concerning forpneumonia or other infiltrates. Correlate clinically and follow-up toresolution. Assessment/Plan Patient is a 54 year old female who was admitted due to CHF exacerbation and anemia. 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 She is now s/p EMB with IUD placement by music video producer team yesterday (05/12). Of note, patient is a Anabaptism and declines blood products. >>Anemia/Menorrhagia - Federal Law Clerk consulted for patient with CHF exacerbation and anemia in the setting of AUB - Pt reports history of irregular periods x1 year with intermittent light and heavy cycles with herlast heavy period in March. Most recent period was light and started 04/17/24 - TVUS this admission unremarkable with endometrial stripe of 0.6cm, though left ovary was unable to be visualized - Patient also was recently admitted at [facility] for similar presentation and was found to have hemoglobin of 5.1 and has received multiple IV iron infusions at OSH - She is on antiplatelet therapy after cardiac cardiac stent placement. However no anticoagulation - Hematology is also pending, with Hgb electrophoresis results - This admission she is s/p x2 doses of Ferrlecit - She denies symptoms including dizziness, SOB - She is now s/p G/C collection, EMB, and IUD placement per [employer] Law Clerk team on 05/02. - G/C negative. EMB pending. Hgb this AM pending. Dispo: Patient now s/p EMB and IUD placement. She is not currently a candidate for surgical management of her menstrual bleeding due to her anemia and refusal of blood products. Discussed with patient that strategic planning specialist menstrual cycles are generally expected after IUD placement, but that this adjustmentcan take several months. As a result, will defer starting on TXA at this time given her medical comorbidities and expecting bleeding to improve with IUD. Also discussed close follow up outpatient with an OBGYN. Patient lives in [place] and reported there's a [facility] OBGYN office she follows up with intermittently and she prefers to follow-up there. Remainder of management and care per primary team. Federal Law Clerk to sign off at this time. Please reach out with any additional concerns. Patient discussed with senior resident Dr. Martinez Digitally Signed by CHARBEL ESCOBAR MD on 05/13/2024 06:03 AM Digitally Signed by ED MARTINEZ DO on 05/13/2024 08:55 AM [facility] [id number] Note Date of Service 05/13/2024 Chief Complaint Anemia in the setting of Menorrhagia Subjective Patient seen and examined at bedside this AM. No acute events overnight. Sleeping soundly upon entering room. Denies any cramping or pain after IUD placement yesterday. Having light vaginal spotting.No acute concerns this AM. Objective Vitals and Measurements T: 36.8 C (Oral) TMIN: 36.7 C (Oral) TMAX: 37.0 C (Oral) HR: 100 (Monitored) RR: 18 BP: 119/75 SpO2: 96% Intake and Output 7AM Yesterday to 7AM Today Intake and Output (Last 24 hours) Intake Oral Intake 480.00 Output Urine Voided 1100.00 Stool Count 0.00 Urine Count 2.00 Total Summary Total Intake 480.00 Total Output 1100.00 Fluid Balance -620.00 Physical Exam General Appearance: Resting comfortably, no acute distress Cardiac/Lungs: No increase work of breathing Abdomen: soft, non tender : deferred Extremities: Moves all extremities spontaneously, no edema Neurological: A&O x3 Skin: Warm, dry, Psychiatric: Cognition intact Weight Current Weight Dosing Weight: 80.4 kg (05/11/24) Current Weight: 78.5 kg (05/12/24) Dosing Weight: 80.8 kg (05/10/24) Medications Medications (17) Active Scheduled: (9) carvedilol 3.125 mg tablet 3.125 mg 1 tab(s), Oral, BIDM clopidogrel 75 mg Tablet 75 mg 1 tab(s), Oral, qDay dapagliflozin 5 mg tablet 5 mg 1 tab(s), Oral, qAM insulin glargine 12 unit(s) 0.12 mL, Subcutaneous (INT), qHS insulin lispro 100 units/mL Soln (3 mL) Give 0-15 units/dose, Subcutaneous, TIDAC magnesium oxide 400 mg Tablet 400 mg 1 tab(s), Oral, BID pantoprazole 40 mg EC tablet 40 mg 1 tab(s), Oral, qDayAC sacubitril-valsartan 24-26 mg oral tablet 1 tab(s), Oral, BID spironolactone 25 mg tablet 25 mg 1 tab(s), Oral, qDayM Continuous: (0) PRN: (8) acetaminophen 325 mg Tablet 650 mg 2 tab(s), Oral, q4h acetaminophen 325 mg Tablet 650 mg 2 tab(s), Oral, q4h albuterol - ipratropium 2.5 mg-0.5 mg/3 mL Inhal Pranav UD 3 mL, Inhalation, q4hRT dextrose 50% Solution Disp syringe 50 mL 12.5 gram(s) 25 mL, IV Push, AsDirected guaifenesin 100 mg/5 mL Liquid 120 mL 200 mg 10 mL, Oral, q4h melatonin 3 mg tablet 3 mg 1 tab(s), Oral, qHS ondansetron 2 mg/ 1 mL 2 mL INJ 4 mg 2 mL, IV Push, q4h polyethylene glycol 3350 - UD packet 17 gram(s) 15 mL, Oral, qDay Lab Results 05/12 06:15 WBC: 4.0 L Hgb: 7.0 L Hct: 23.6 L Platelet: 298 Neutrophil %: 66.1 Glucose Level: 309 H Sodium Level: 136 Potassium Level: 4.9 BUN: 25.0 H Creatinine Lvl (s): 1.06 Imaging Results and Diagnostics US Pelvis Non-OB W/Transvaginal Result Date: May 11, 2024 Verified By: POLO ESTRADA MD CLINICAL STATEMENT: IMPRESSION: No acute findings. XR Chest 2 Views Result Date: May 09, 2024 Verified By: POLO ESTRADA MD CLINICAL STATEMENT: IMPRESSION: Low lung volumes with perihilar and lower lung field opacities concerning forpneumonia or other infiltrates. Correlate clinically and follow-up toresolution. Assessment/Plan Patient is a 54 year old female who was admitted due to CHF exacerbation and anemia. 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 She is now s/p EMB with IUD placement by music video producer team yesterday (05/12). Of note, patient is a Anabapt[employer] and declines blood products. >>Anemia/Menorrhagia - Federal Law Clerk consulted for patient with CHF exacerbation and anemia in the setting of AUB - Pt reports history of irregular periods x1 year with intermittent light and heavy cycles with herlast heavy period in March. Most recent period was light and started 04/17/24 - TVUS this admission unremarkable with endometrial stripe of 0.6cm, though left ovary was unable to be visualized - Patient also was recently admitted at [facility] for similar presentation and was found to have hemoglobin of 5.1 and has received multiple IV iron infusions at OSH - She is on antiplatelet therapy after cardiac cardiac stent placement. However no anticoagulation - Hematology is also pending, with Hgb electrophoresis results - This admission she is s/p x2 doses of Ferrlecit - She denies symptoms including dizziness, SOB - She is now s/p G/C collection, EMB, and IUD placement per Federal Law Clerk team on 05/02. - G/C negative. EMB pending. Hgb this AM pending. Dispo: Patient now s/p EMB and IUD placement. She is not currently a candidate for surgical management of her menstrual bleeding due to her anemia and refusal of blood products. Discussed with patient that strategic planning specialist menstrual cycles are generally expected after IUD placement, but that this adjustmentcan take several months. As a result, will defer starting on TXA at this time given her medical comorbidities and expecting bleeding to improve with IUD. Also discussed close follow up outpatient with an OBGYN. Patient lives in [place] and reported there's a [facility] OBGYN office she follows up with intermittently and she prefers to follow-up there. Remainder of management and care per primary team. Federal Law Clerk to sign off at this time. Please reach out with any additional concerns. Patient discussed with senior resident Dr. Martinez Digitally Signed by CHARBEL ESCOBAR MD on 05/13/2024 06:03 AM Digitally Signed by ED MARTINEZ DO on 05/13/2024 08:55 AM [facility] [id number] Note Date of Service 05/13/2024 Chief Complaint Anemia in the setting of Menorrhagia Subjective Patient seen and examined at bedside this AM. No acute events overnight. Sleeping soundly upon entering room. Denies any cramping or pain after IUD placement yesterday. Having light vaginal spotting.No acute concerns this AM. Objective Vitals and Measurements T: 36.8 C (Oral) TMIN: 36.7 C (Oral) TMAX: 37.0 C (Oral) HR: 100 (Monitored) RR: 18 BP: 119/75 SpO2: 96% Intake and Output 7AM Yesterday to 7AM Today Intake and Output (Last 24 hours) Intake Oral Intake 480.00 Output Urine Voided 1100.00 Stool Count 0.00 Urine Count 2.00 Total Summary Total Intake 480.00 Total Output 1100.00 Fluid Balance -620.00 Physical Exam General Appearance: Resting comfortably, no acute distress Cardiac/Lungs: No increase work of breathing Abdomen: soft, non tender : deferred Extremities: Moves all extremities spontaneously, no edema Neurological: A&O x3 Skin: Warm, dry, Psychiatric: Cognition intact Weight Current Weight Dosing Weight: 80.4 kg (05/11/24) Current Weight: 78.5 kg (05/12/24) Dosing Weight: 80.8 kg (05/10/24) Medications Medications (17) Active Scheduled: (9) carvedilol 3.125 mg tablet 3.125 mg 1 tab(s), Oral, BIDM clopidogrel 75 mg Tablet 75 mg 1 tab(s), Oral, qDay dapagliflozin 5 mg tablet 5 mg 1 tab(s), Oral, qAM insulin glargine 12 unit(s) 0.12 mL, Subcutaneous (INT), qHS insulin lispro 100 units/mL Soln (3 mL) Give 0-15 units/dose, Subcutaneous, TIDAC magnesium oxide 400 mg Tablet 400 mg 1 tab(s), Oral, BID pantoprazole 40 mg EC tablet 40 mg 1 tab(s), Oral, qDayAC sacubitril-valsartan 24-26 mg oral tablet 1 tab(s), Oral, BID spironolactone 25 mg tablet 25 mg 1 tab(s), Oral, qDayM Continuous: (0) PRN: (8) acetaminophen 325 mg Tablet 650 mg 2 tab(s), Oral, q4h acetaminophen 325 mg Tablet 650 mg 2 tab(s), Oral, q4h albuterol - ipratropium 2.5 mg-0.5 mg/3 mL Inhal Pranav UD 3 mL, Inhalation, q4hRT dextrose 50% Solution Disp syringe 50 mL 12.5 gram(s) 25 mL, IV Push, AsDirected guaifenesin 100 mg/5 mL Liquid 120 mL 200 mg 10 mL, Oral, q4h melatonin 3 mg tablet 3 mg 1 tab(s), Oral, qHS ondansetron 2 mg/ 1 mL 2 mL INJ 4 mg 2 mL, IV Push, q4h polyethylene glycol 3350 - UD packet 17 gram(s) 15 mL, Oral, qDay Lab Results 05/12 06:15 WBC: 4.0 L Hgb: 7.0 L Hct: 23.6 L Platelet: 298 Neutrophil %: 66.1 Glucose Level: 309 H Sodium Level: 136 Potassium Level: 4.9 BUN: 25.0 H Creatinine Lvl (s): 1.06 Imaging Results and Diagnostics US Pelvis Non-OB W/Transvaginal Result Date: May 11, 2024 Verified By: POLO ESTRADA MD CLINICAL STATEMENT: IMPRESSION: No acute findings. XR Chest 2 Views Result Date: May 09, 2024 Verified By: POLO ESTRADA MD CLINICAL STATEMENT: IMPRESSION: Low lung volumes with perihilar and lower lung field opacities concerning forpneumonia or other infiltrates. Correlate clinically and follow-up toresolution. Assessment/Plan Patient is a 54 year old female who was admitted due to CHF exacerbation and anemia. 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 She is now s/p EMB with IUD placement by music video producer team yesterday (05/12). Of note, patient is a Anabapt[employer] and declines blood products. >>Anemia/Menorrhagia - Federal Law Clerk consulted for patient with CHF exacerbation and anemia in the setting of AUB - Pt reports history of irregular periods x1 year with intermittent light and heavy cycles with herlast heavy period in March. Most recent period was light and started 04/17/24 - TVUS this admission unremarkable with endometrial stripe of 0.6cm, though left ovary was unable to be visualized - Patient also was recently admitted at [facility] for similar presentation and was found to have hemoglobin of 5.1 and has received multiple IV iron infusions at OSH - She is on antiplatelet therapy after cardiac cardiac stent placement. However no anticoagulation - Hematology is also pending, with Hgb electrophoresis results - This admission she is s/p x2 doses of Ferrlecit - She denies symptoms including dizziness, SOB - She is now s/p G/C collection, EMB, and IUD placement per Federal Law Clerk team on 05/02. - G/C negative. EMB pending. Hgb this AM pending. Dispo: Patient now s/p EMB and IUD placement. She is not currently a candidate for surgical management of her menstrual bleeding due to her anemia and refusal of blood products. Discussed with patient that strategic planning specialist menstrual cycles are generally expected after IUD placement, but that this adjustmentcan take several months. As a result, will defer starting on TXA at this time given her medical comorbidities and expecting bleeding to improve with IUD. Also discussed close follow up outpatient with an OBGYN. Patient lives in [place] and reported there's a [facility] OBGYN office she follows up with intermittently and she prefers to follow-up there. Remainder of management and care per primary team. Federal Law Clerk to sign off at this time. Please reach out with any additional concerns. Patient discussed with senior resident Dr. Martinez Digitally Signed by CHARBEL ESCOBAR MD on 05/13/2024 06:03 AM Digitally Signed by ED MARTINEZ DO on 05/13/2024 08:55 AM [facility] [id number] Note Date of Service 05/12/2024 Subjective Patient states that she is feeling a lot better today. Denies any pain, no palpitations. Telemetry with sinus rhythm. Objective Vitals and Measurements T: 36.8 C (Oral) TMIN: 36.2 C (Oral) TMAX: 36.8 C (Oral) HR: 93 (Monitored) RR: 18 BP: 133/84 SpO2:98% WT: 78.5 kg Intake and Output 7AM Yesterday to 7AM Today Intake and Output (Last 24 hours) Intake Administration Information 160.00 Oral Intake 1220.00 Output Urine Voided 2800.00 Stool Count 0.00 Urine Count 1.00 Total Summary Total Intake 1380.00 Total Output 2800.00 Fluid Balance -1420.00 Physical Exam Patient is resting in bed, acute distress. Lower extremities with 1+ pitting edema bilaterally. With significant proved from previous. Weight Current Weight Dosing Weight: 80.4 kg (05/11/24) Current Weight: 78.5 kg (05/12/24) Dosing Weight: 80.8 kg (05/10/24) Medications Medications (17) Active Scheduled: (9) carvedilol 3.125 mg tablet 3.125 mg 1 tab(s), Oral, BIDM clopidogrel 75 mg Tablet 75 mg 1 tab(s), Oral, qDay dapagliflozin 5 mg tablet 5 mg 1 tab(s), Oral, qAM insulin glargine 5 unit(s) 0.05 mL, Subcutaneous (INT), qHS insulin lispro 100 units/mL Soln (3 mL) Give 0-15 units/dose, Subcutaneous, TIDAC magnesium oxide 400 mg Tablet 400 mg 1 tab(s), Oral, BID pantoprazole 40 mg EC tablet 40 mg 1 tab(s), Oral, qDayAC sacubitril-valsartan 24-26 mg oral tablet 1 tab(s), Oral, BID spironolactone 25 mg tablet 25 mg 1 tab(s), Oral, qDayM Continuous: (0) PRN: (8) acetaminophen 325 mg Tablet 650 mg 2 tab(s), Oral, q4h acetaminophen 325 mg Tablet 650 mg 2 tab(s), Oral, q4h albuterol - ipratropium 2.5 mg-0.5 mg/3 mL Inhal Pranav UD 3 mL, Inhalation, q4hRT dextrose 50% Solution Disp syringe 50 mL 12.5 gram(s) 25 mL, IV Push, AsDirected guaifenesin 100 mg/5 mL Liquid 120 mL 200 mg 10 mL, Oral, q4h melatonin 3 mg tablet 3 mg 1 tab(s), Oral, qHS ondansetron 2 mg/ 1 mL 2 mL INJ 4 mg 2 mL, IV Push, q4h polyethylene glycol 3350 - UD packet 17 gram(s) 15 mL, Oral, qDay Lab Results 05/12 06:15 WBC: 4.0 L Hgb: 7.0 L Hct: 23.6 L Platelet: 298 Neutrophil %: 66.1 Glucose Level: 309 H Sodium Level: 136 Potassium Level: 4.9 BUN: 25.0 H Creatinine Lvl (s): 1.06 05/11 10:07 WBC: 5.0 Hgb: 7.0 L Hct: 22.8 L Platelet: 353 Neutrophil %: 80.0 H Glucose Level: 111 H Sodium Level: 138 Potassium Level: 3.5 BUN: 17.0 Creatinine Lvl (s): 0.90 Imaging Results and Diagnostics US Pelvis Non-OB W/Transvaginal Result Date: May 11, 2024 Verified By: POLO ESTRADA MD CLINICAL STATEMENT: IMPRESSION: No acute findings. XR Chest 2 Views Result Date: May 09, 2024 Verified By: POLO ESTRADA MD CLINICAL STATEMENT: IMPRESSION: Low lung volumes with perihilar and lower lung field opacities concerning forpneumonia or other infiltrates. Correlate clinically and follow-up toresolution. EKG No qualifying data available. Assessment/Plan Acute exacerbation of chronic heart failure with now reduced ejection fraction of 40 to 45%, grade 1 diastolic dysfunction Moderate MR Pulmonary arterial hypertension with RVSP of 49 Mild to moderate TR Acute on chronic anemia without any active eviden Menorrhagia Endometrial cyst at the fundus measuring 0.6 cm, recommending nonsurgical management, status post endometrial biopsy, IUD placement, recommending TXA to minimize blood loss during her menstrual period Iron deficiency anemia Anabaptism, avoid blood products Bilateral lower extremity edema, secondary to CHF, negative for DVT Hypoglycemia iatrogenic, with history of type 2 diabetes DVT prophylaxis: SCDs CODE STATUS: Full code Plan: At present, patient is being followed by cardiology for her CHF: Has been started on low-dose Coreg twice a day, Lasix drip stopped, mild uptrend in creatinine function but stable. Started on Farxiga, Brilinta changed to Plavix. The recommending Entresto starting tomorrow. Received a dose of losartan today. Placed on spironolactone. Follow-up with cardiology in the outpatient setting. Prior CAD with stents. Echocardiogram with an ejection fraction of 40 to 45%, grade 1 diastolic dysfunction. Strict I's and O's, daily weights, low-sodium diet. Elevate lower extremities, PAULINE hoses to lower extremities. Doppler studies were performed to rule out VTE, no evidence of DVT/SVT. Telemetry reviewed, sinus rhythm. Appreciate ongoing input from cardiology. Anemia appears to be stable at this time. No evidence of any blood loss. Continue to follow-up withhematology in the outpatient setting as well as her previous established GI doctor. Has been seen by gynecology given she was complaining of menorrhagia. Her pelvic ultrasound showed a endometrial cyst measuring 0.6 cm, also recommended an endometrial biopsy. She is agreeable to this, this was performed today and pathology needs followed up in the outpatient setting. Chlamydia and gonorrhea negative. Status post IUD placement. Recommending TXA use during her menstrual period. Follow-up with her previous established java application developer once her insurance kicks in upon discharge. I appreciate the assistance and care provided by the gynecology team. Thank you. Continue with iron supplementation in the outpatient setting, received 3 doses of IV iron here. Hb SS is being evaluated by hematology. Pending labs to be followed in the clinic with the patient is discharged. Patient had an episode of hypoglycemia due to the fact that she was noted to have Lantus 30 units at home which was resumed here. But the patient clarified that she only takes this as needed at home. At this time, blood glucose levels are elevated, increase her Lantus to 12 units every night based on sliding scale needs. Continue with high-dose sliding scale. Avoid hypoglycemia, will discontinue her current insulin regimen. Started on Farxiga. ADA diet. Monitor potassium and magnesium closely. Monitor kidney function. Replete to maintain a potassium of 4, magnesium of 2. Plan of care discussed with patient. She is hoping to be discharged sometime tomorrow, she needs a work release form upon discharge. This is a note transcribed by me, the attending physician on service using the 'Bindo' dictation software. Please excuse any grammatical errors, repetitions/duplications if any are present in the entirety of this note. Thank you. Level of Care Indication SD monitor (CHF exacerbation) DVT Prophylaxis Other: specify in note Maintenance IVF Indication NA / No maintenance IVF Indwelling Urinary Catheter Indication NA No indwelling catheter Anticipated Timeline of Discharge 48 hours Anticipated DC Disposition Home without services Digitally Signed by ABRAHAN LUNDBERG MD on 05/12/2024 02:13 PM [id number] Cardiology Progress note Subjective No acute events Objective Vitals and Measurements T: 36.7 C (Oral) TMIN: 36.2 C (Oral) TMAX: 36.8 C (Oral) HR: 95 RR: 18 BP: 141/87 SpO2: 97% WT: 78.5 kg Intake and Output 7AM Yesterday to 7AM Today Intake and Output (Last 24 hours) Intake Administration Information 160.00 Oral Intake 1220.00 Output Urine Voided 2250.00 Stool Count 0.00 Urine Count 2.00 Total Summary Total Intake 1380.00 Total Output 2250.00 Fluid Balance -870.00 Physical Exam General Appearance: Alert and oriented x3, no acute distress Head: Normocephalic atraumatic EENT: Conjunctiva pink, sclera normal, Neck: No lumps or swellings noted Cardiac: S1, S2, no S3 or S4, improved JVD Lungs: Clear to auscultation bilaterally Abdomen: Soft, nontender, nondistended bowel sounds positive Musculoskeletal: No joint swelling Extremities: Warm well perfused, no significant edema noted Neurological: Grossly intact nonfocal Skin: No rashes Psychiatric: Normal mood, normal affect Weight Current Weight Dosing Weight: 80.4 kg (05/11/24) Current Weight: 78.5 kg (05/12/24) Dosing Weight: 80.8 kg (05/10/24) Medications Medications (20) Active Scheduled: (12) carvedilol 3.125 mg tablet 3.125 mg 1 tab(s), Oral, BIDM clopidogrel 75 mg Tablet 75 mg 1 tab(s), Oral, qDay empagliflozin 10 mg tablet 10 mg 1 tab(s), Oral, qAM insulin glargine 5 unit(s) 0.05 mL, Subcutaneous (INT), qHS insulin lispro 100 units/mL Soln (3 mL) Give 0-15 units/dose, Subcutaneous, TIDAC losartan 25 mg tablet 25 mg 1 tab(s), Oral, Once magnesium oxide 400 mg Tablet 400 mg 1 tab(s), Oral, BID pantoprazole 40 mg EC tablet 40 mg 1 tab(s), Oral, qDayAC potassium chloride 20 mEq ER tablet 40 mEq 2 tab(s), Oral, qDayM sacubitril-valsartan 24-26 mg oral tablet 1 tab(s), Oral, BID sodium ferric gluconate complex 250 mg 20 mL, IV Piggyback, qDay spironolactone 25 mg tablet 25 mg 1 tab(s), Oral, qDayM Continuous: (0) PRN: (8) acetaminophen 325 mg Tablet 650 mg 2 tab(s), Oral, q4h acetaminophen 325 mg Tablet 650 mg 2 tab(s), Oral, q4h albuterol - ipratropium 2.5 mg-0.5 mg/3 mL Inhal Pranav UD 3 mL, Inhalation, q4hRT dextrose 50% Solution Disp syringe 50 mL 12.5 gram(s) 25 mL, IV Push, AsDirected guaifenesin 100 mg/5 mL Liquid 120 mL 200 mg 10 mL, Oral, q4h melatonin 3 mg tablet 3 mg 1 tab(s), Oral, qHS ondansetron 2 mg/ 1 mL 2 mL INJ 4 mg 2 mL, IV Push, q4h polyethylene glycol 3350 - UD packet 17 gram(s) 15 mL, Oral, qDay Lab Results 05/12 06:15 WBC: 4.0 L Hgb: 7.0 L Hct: 23.6 L Platelet: 298 Neutrophil %: 66.1 Glucose Level: 309 H Sodium Level: 136 Potassium Level: 4.9 BUN: 25.0 H Creatinine Lvl (s): 1.06 05/11 10:07 WBC: 5.0 Hgb: 7.0 L Hct: 22.8 L Platelet: 353 Neutrophil %: 80.0 H Glucose Level: 111 H Sodium Level: 138 Potassium Level: 3.5 BUN: 17.0 Creatinine Lvl (s): 0.90 EKG No qualifying data available. Assessment/Plan Anemia CHF (congestive heart failure) Hyperglycemia SOB (shortness of breath) Orders: carvedilol(Coreg), 3.125 mg= 1 tab(s), Oral, BIDM clopidogrel(Plavix), 75 mg= 1 tab(s), Oral, qDay empagliflozin(Jardiance), 10 mg= 1 tab(s), Oral, qAM losartan, 25 mg= 1 tab(s), Oral, Once magnesium oxide, 400 mg= 1 tab(s), Oral, BID sacubitril-valsartan(Entresto 24 mg-26 mg oral tablet), 1 tab(s), Oral, BID spironolactone, 25 mg= 1 tab(s), Oral, qDayM Acute chronic heart failure with reduced ejection fraction Severe anemia Anabaptism Moderate mitral regurgitation mild to moderate tricuspid regurgitation History of CAD s/p PCI Start Entresto from tomorrow Losartan today DC Lasix drip for now continue with Jardiance and spironolactone Start low-dose beta-hussein Switch Brilinta to Plavix in light of severe anemia Agree with gynecological workup with severe anemia and menorrhagia Digitally Signed by ZACHARY MELGOZA MD on 05/12/2024 09:35 AM [id number] Cardiology Progress note Subjective No acute events Objective Vitals and Measurements T: 36.7 C (Oral) TMIN: 36.2 C (Oral) TMAX: 36.8 C (Oral) HR: 95 RR: 18 BP: 141/87 SpO2: 97% WT: 78.5 kg Intake and Output 7AM Yesterday to 7AM Today Intake and Output (Last 24 hours) Intake Administration Information 160.00 Oral Intake 1220.00 Output Urine Voided 2250.00 Stool Count 0.00 Urine Count 2.00 Total Summary Total Intake 1380.00 Total Output 2250.00 Fluid Balance -870.00 Physical Exam General Appearance: Alert and oriented x3, no acute distress Head: Normocephalic atraumatic EENT: Conjunctiva pink, sclera normal, Neck: No lumps or swellings noted Cardiac: S1, S2, no S3 or S4, improved JVD Lungs: Clear to auscultation bilaterally Abdomen: Soft, nontender, nondistended bowel sounds positive Musculoskeletal: No joint swelling Extremities: Warm well perfused, no significant edema noted Neurological: Grossly intact nonfocal Skin: No rashes Psychiatric: Normal mood, normal affect Weight Current Weight Dosing Weight: 80.4 kg (05/11/24) Current Weight: 78.5 kg (05/12/24) Dosing Weight: 80.8 kg (05/10/24) Medications Medications (20) Active Scheduled: (12) carvedilol 3.125 mg tablet 3.125 mg 1 tab(s), Oral, BIDM clopidogrel 75 mg Tablet 75 mg 1 tab(s), Oral, qDay empagliflozin 10 mg tablet 10 mg 1 tab(s), Oral, qAM insulin glargine 5 unit(s) 0.05 mL, Subcutaneous (INT), qHS insulin lispro 100 units/mL Soln (3 mL) Give 0-15 units/dose, Subcutaneous, TIDAC losartan 25 mg tablet 25 mg 1 tab(s), Oral, Once magnesium oxide 400 mg Tablet 400 mg 1 tab(s), Oral, BID pantoprazole 40 mg EC tablet 40 mg 1 tab(s), Oral, qDayAC potassium chloride 20 mEq ER tablet 40 mEq 2 tab(s), Oral, qDayM sacubitril-valsartan 24-26 mg oral tablet 1 tab(s), Oral, BID sodium ferric gluconate complex 250 mg 20 mL, IV Piggyback, qDay spironolactone 25 mg tablet 25 mg 1 tab(s), Oral, qDayM Continuous: (0) PRN: (8) acetaminophen 325 mg Tablet 650 mg 2 tab(s), Oral, q4h acetaminophen 325 mg Tablet 650 mg 2 tab(s), Oral, q4h albuterol - ipratropium 2.5 mg-0.5 mg/3 mL Inhal Pranav UD 3 mL, Inhalation, q4hRT dextrose 50% Solution Disp syringe 50 mL 12.5 gram(s) 25 mL, IV Push, AsDirected guaifenesin 100 mg/5 mL Liquid 120 mL 200 mg 10 mL, Oral, q4h melatonin 3 mg tablet 3 mg 1 tab(s), Oral, qHS ondansetron 2 mg/ 1 mL 2 mL INJ 4 mg 2 mL, IV Push, q4h polyethylene glycol 3350 - UD packet 17 gram(s) 15 mL, Oral, qDay Lab Results 05/12 06:15 WBC: 4.0 L Hgb: 7.0 L Hct: 23.6 L Platelet: 298 Neutrophil %: 66.1 Glucose Level: 309 H Sodium Level: 136 Potassium Level: 4.9 BUN: 25.0 H Creatinine Lvl (s): 1.06 05/11 10:07 WBC: 5.0 Hgb: 7.0 L Hct: 22.8 L Platelet: 353 Neutrophil %: 80.0 H Glucose Level: 111 H Sodium Level: 138 Potassium Level: 3.5 BUN: 17.0 Creatinine Lvl (s): 0.90 EKG No qualifying data available. Assessment/Plan Anemia CHF (congestive heart failure) Hyperglycemia SOB (shortness of breath) Orders: carvedilol(Coreg), 3.125 mg= 1 tab(s), Oral, BIDM clopidogrel(Plavix), 75 mg= 1 tab(s), Oral, qDay empagliflozin(Jardiance), 10 mg= 1 tab(s), Oral, qAM losartan, 25 mg= 1 tab(s), Oral, Once magnesium oxide, 400 mg= 1 tab(s), Oral, BID sacubitril-valsartan(Entresto 24 mg-26 mg oral tablet), 1 tab(s), Oral, BID spironolactone, 25 mg= 1 tab(s), Oral, qDayM Acute chronic heart failure with reduced ejection fraction Severe anemia Anabaptism Moderate mitral regurgitation mild to moderate tricuspid regurgitation History of CAD s/p PCI Start Entresto from tomorrow Losartan today DC Lasix drip for now continue with Jardiance and spironolactone Start low-dose beta-hussein Switch Brilinta to Plavix in light of severe anemia Agree with gynecological workup with severe anemia and menorrhagia Digitally Signed by ZACHARY MELGOZA MD on 05/12/2024 09:35 AM [facility] [id number] Gynecology Consult note Date of Service 05/11/24 Reason for Consultation Anemia in the setting of Menorrhagia Referring Physician Dr. Lundberg History of Present Illness Patient is a 54 yo female who was admitted on 05/10/2024 due to anemia and CHF exacerbation. She initially presented for shortness of breath and was found to have heart failure exacerbation and anemia with a Hbg of 6.1. She states that she has regular periods every month, but over the past yearshe has has intermittent light and heavy menstrual cycles. She is usually on her menstrual cycle for 3 days. On the months she is experiencing heavy bleeding she uses maxi pads and heavy tampons every 2 hrs. She also reports passing clots the size of sabra and intermittent cramping. She denies anypelvic pain or abdominal pain. She has never a history of heavy periods prior to the past year, 2023. She has not seen in OBGYN in at least 2 years, after her last pap smear. She denies any history of fibroids, bleeding disorders, prior ablation, cervical surgery. Of note she was admitted at [facility] recently for sever anemia, Hgb 5 s/p IV iron infusions. Gastroenterology was consulted, she underwent an EGD and a colonoscopy which were within normal limits per patient. Record for the EGD was seen on [facility]. Patient has never been on hormonal contraceptive methods. She is a Jehovah's witnessand prefers to not receive any blood products or blood product agents. Patient denies change in weight despite or appetite. Patient denies any chest pain. Patient denies nausea, vomiting, bloating, abdominal pain. Patient denies any urinary complaints such as dysuria orhematuria. Patient denies vaginal discharge or vaginal bleeding. Patient denies constipation or diarrhea. No further concerns or complaints at this time and all questions were addressed thoroughly. 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 Last heavy period in March Menarche: 14 y.o Patient denies history of STDs. Control: Has never been on hormonal control Denies history hormone replacement therapy No history of abnormal pap smears. Most recent Pap smears: 2021 - WNL, HPV negative Mammograms: 2021 - WN Colonoscopy: Performed on previous admission in [facility] - No abnormalities noted on exam. EGD: Normal on prior admission @ [facility] Medical History: CHF Type 2 Diabetes Mellitus Menorrhagia CAD s/p stent placements HTN HLD Anemia Abnormal uterine bleeding Surgical history: D&C EGD 2024 Colonoscopy 2024, 2015 Axillary Nipple removal Social history: No smoking, drinking, drugs Family history: No significant family Hx of cancers (breast, ovary, uterine, colon, stomach) Allergies: Penicillin Latex Morphine Review of Systems See HPI Physical Exam Vitals and Measurements T: 36.5 C (Oral) TMIN: 36.4 C (Oral) TMAX: 36.9 C (Oral) HR: 100 (Monitored) RR: 16 BP: 127/80 SpO2: 99% WT: 80.4 kg Weight Dosing Weight: 80.4 kg (05/11/24) Dosing Weight: 80.8 kg (05/10/24) Physical Exam: General: NAD Cardiovascular: no JVD Respiratory: no labored breathing Abdomen: soft, gravid, nontender :pending Extremities: minimal edema Lab Results 05/11 10:07 WBC: 5.0 Hgb: 7.0 L Hct: 22.8 L Platelet: 353 Neutrophil %: 80.0 H Glucose Level: 111 H Sodium Level: 138 Potassium Level: 3.5 BUN: 17.0 Creatinine Lvl (s): 0.90 05/10 06:11 WBC: 5.5 Hgb: 6.1 C Hct: 19.9 L Platelet: 333 Neutrophil %: 65.7 Protime: 11.8 PT International Ratio: 1.0 Glucose Level: 223 H Sodium Level: 135 L Potassium Level: 4.2 BUN: 11.0 Creatinine Lvl (s): 0.70 Imaging Results and Diagnostics US Pelvis Non-OB W/Transvaginal Result Date: May 11, 2024 Verified By: POLO ESTRADA MD CLINICAL STATEMENT: IMPRESSION: No acute findings. XR Chest 2 Views Result Date: May 09, 2024 Verified By: POLO ESTRADA MD CLINICAL STATEMENT: IMPRESSION: Low lung volumes with perihilar and lower lung field opacities concerning forpneumonia or other infiltrates. Correlate clinically and follow-up toresolution. Assessment/Plan Patient is a 54 year old female who was admitted due to CHF exacerbation and anemia. 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 >>Anemia/Menorrhagia - Hb.1 -> 7.0. Pt is a Jehovah witness so does not want blood products - She has been receiving IV Iron infusions and was admitted 10 days ago for anemia as well in [facility]. - She denies any dizziness or SOB currently - Denies any abdominal pain/pelvic pain - She has a recent Hx of irregular periods for the past 1 yr with intermittent light and heavy cycles - Her last heavy period was in March and since then she has had one light period on 04/17/24. 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 0.6 cm cyst-like structure at the fundus. Right Ovary: Right ovary is within normal limits. Left Ovary: Left ovary is within normal limits. >> CHF - Managed per primary team >>T2DM - Managed per primary team >>HTN - Managed per primary team >> HLD - Managed per primary team Dispo: - Plan for EMB to evaluate endometrial lining due to sudden changes with heavy bleeding in the perimenopausal period - Discussed IUD placement with the patient and she is agreeable at bedside -U/S unremarkable Pt seen with Dr. England Problem List/Past Medical History CHF Type 2 Diabetes Mellitus Menorrhagia CAD s/p stent placements HTN HLD Anemia Abnormal uterine bleeding Procedure/Surgical History D&C EGD 2024 Colonoscopy 2024, 2015 Axillary Nipple removal Medications Inpatient Brilinta (ticagrelor), 90 mg= 1 tab(s), Oral, BID Dextrose 50% IV Push, 12.5 gram(s)= 25 mL, IV Push, AsDirected, PRN DuoNeb, 3 mL, Inhalation, q4hRT, PRN Ferrlecit furosemide for IV 100 mg [10 mg/hr] + Sodium Chloride 0.9% intravenous solution 90 mL guaiFENesin, 200 mg= 10 mL, Oral, q4h, PRN HumaLOG 100 units/mL subcutaneous solution, Give 0-15 units/dose, Subcutaneous, TIDAC Jardiance, 10 mg= 1 tab(s), Oral, qAM KCL, 40 mEq= 2 tab(s), Oral, qDayM Lantus, 5 unit(s)= 0.05 mL, Subcutaneous (INT), qHS losartan, 25 mg= 1 tab(s), Oral, qDay magnesium oxide, 400 mg= 1 tab(s), Oral, BID magnesium sulfate for IV bolus, 2 gram(s)= 50 mL, IV Piggyback, Once melatonin, 3 mg= 1 tab(s), Oral, qHS, PRN Miralax Powder Packet, 17 gram(s)= 15 mL, Oral, qDay, PRN pantoprazole, 40 mg= 1 tab(s), Oral, qDayAC potassium chloride, 40 mEq= 2 tab(s), Oral, Once spironolactone, 25 mg= 1 tab(s), Oral, qDayM Tylenol, 650 mg= 2 tab(s), Oral, q4h, PRN Tylenol, 650 mg= 2 tab(s), Oral, q4h, PRN Zofran, 4 mg= 2 mL, IV Push, q4h, PRN Home acetaminophen, 650 mg, Oral, q6hr, PRN Alcohol Swabs, See Instructions atorvastatin 40 mg oral tablet, 40 mg= 1 tab(s), Oral, qDay, Not taking Blood Glucose Test Machine, See Instructions Blood Glucose Test Strips, See Instructions Brilinta (ticagrelor) 90 mg oral tablet, 90 mg= 1 tab(s), Oral, BID ferrous sulfate, 325 mg, Oral, TID folic acid 1 mg oral tablet, 1 mg= 1 tab(s), Oral, qDay, Not taking Insulin Lispro KwikPen 100 units/mL injectable solution, 6 unit(s)= 0.06 mL, Subcutaneous, TIDAC Lancets, See Instructions Lantus Solostar Pen 100 units/mL 3 mL Pen, 30 unit(s), Subcutaneous, qHS lisinopril, 10 mg, Oral, qDay losartan 50 mg oral tablet, 50 mg= 1 tab(s), Oral, qDay, Not taking metoprolol succinate 100 mg oral TABLET extended release, 100 mg= 1 tab(s), Oral, BID, Not taking Pen needles, See Instructions Allergies penicillin (Mild) vomiting Latex morphine Nausea and vomiting Social History Alcohol Use: Never., 11/09/2023 Substance Abuse Use: Never., 11/09/2023 Tobacco Nicotine Use: Never (less than 100 in lifetime)., 11/09/2023 Family History No significant family Hx of cancers (breast, ovary, uterine, colon, stomach) Immunizations No qualifying data available. Digitally Signed by GEO ZAMBRANO MD on 05/11/2024 06:56 PM Digitally Signed by SHARDA ENGLAND MD on 05/12/2024 01:41 AM [facility] [id number] Gynecology Consult note Date of Service 05/11/24 Reason for Consultation Anemia in the setting of Menorrhagia Referring Physician Dr. Lundberg History of Present Illness Patient is a 54 yo female who was admitted on 05/10/2024 due to anemia and CHF exacerbation. She initially presented for shortness of breath and was found to have heart failure exacerbation and anemia with a Hbg of 6.1. She states that she has regular periods every month, but over the past yearshe has has intermittent light and heavy menstrual cycles. She is usually on her menstrual cycle for 3 days. On the months she is experiencing heavy bleeding she uses maxi pads and heavy tampons every 2 hrs. She also reports passing clots the size of sabra and intermittent cramping. She denies anypelvic pain or abdominal pain. She has never a history of heavy periods prior to the past year, 2023. She has not seen in OBGYN in at least 2 years, after her last pap smear. She denies any history of fibroids, bleeding disorders, prior ablation, cervical surgery. Of note she was admitted at [facility] recently for sever anemia, Hgb 5 s/p IV iron infusions. Gastroenterology was consulted, she underwent an EGD and a colonoscopy which were within normal limits per patient. Record for the EGD was seen on [facility]. Patient has never been on hormonal contraceptive methods. She is a Jehovah's witnessand prefers to not receive any blood products or blood product agents. Patient denies change in weight despite or appetite. Patient denies any chest pain. Patient denies nausea, vomiting, bloating, abdominal pain. Patient denies any urinary complaints such as dysuria orhematuria. Patient denies vaginal discharge or vaginal bleeding. Patient denies constipation or diarrhea. No further concerns or complaints at this time and all questions were addressed thoroughly. 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 Last heavy period in March Menarche: 14 y.o Patient denies history of STDs. Control: Has never been on hormonal control Denies history hormone replacement therapy No history of abnormal pap smears. Most recent Pap smears: 2021 - , HPV negative Mammograms: 2021 - Colonoscopy: Performed on previous admission in [facility] - No abnormalities noted on exam. EGD: Normal on prior admission @ [facility] Medical History: CHF Type 2 Diabetes Mellitus Menorrhagia CAD s/p stent placements HTN HLD Anemia Abnormal uterine bleeding Surgical history: D&C EGD 2024 Colonoscopy 2024, 2015 Axillary Nipple removal Social history: No smoking, drinking, drugs Family history: No significant family Hx of cancers (breast, ovary, uterine, colon, stomach) Allergies: Penicillin Latex Morphine Review of Systems See HPI Physical Exam Vitals and Measurements T: 36.5 C (Oral) TMIN: 36.4 C (Oral) TMAX: 36.9 C (Oral) HR: 100 (Monitored) RR: 16 BP: 127/80 SpO2: 99% WT: 80.4 kg Weight Dosing Weight: 80.4 kg (05/11/24) Dosing Weight: 80.8 kg (05/10/24) Physical Exam: General: NAD Cardiovascular: no JVD Respiratory: no labored breathing Abdomen: soft, gravid, nontender :pending Extremities: minimal edema Lab Results 05/11 10:07 WBC: 5.0 Hgb: 7.0 L Hct: 22.8 L Platelet: 353 Neutrophil %: 80.0 H Glucose Level: 111 H Sodium Level: 138 Potassium Level: 3.5 BUN: 17.0 Creatinine Lvl (s): 0.90 05/10 06:11 WBC: 5.5 Hgb: 6.1 C Hct: 19.9 L Platelet: 333 Neutrophil %: 65.7 Protime: 11.8 PT International Ratio: 1.0 Glucose Level: 223 H Sodium Level: 135 L Potassium Level: 4.2 BUN: 11.0 Creatinine Lvl (s): 0.70 Imaging Results and Diagnostics US Pelvis Non-OB W/Transvaginal Result Date: May 11, 2024 Verified By: POLO ESTRADA MD CLINICAL STATEMENT: IMPRESSION: No acute findings. XR Chest 2 Views Result Date: May 09, 2024 Verified By: POLO ESTRADA MD CLINICAL STATEMENT: IMPRESSION: Low lung volumes with perihilar and lower lung field opacities concerning forpneumonia or other infiltrates. Correlate clinically and follow-up toresolution. Assessment/Plan Patient is a 54 year old female who was admitted due to CHF exacerbation and anemia. 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 >>Anemia/Menorrhagia - Hb.1 -> 7.0. Pt is a Jehovah witness so does not want blood products - She has been receiving IV Iron infusions and was admitted 10 days ago for anemia as well in [facility]. - She denies any dizziness or SOB currently - Denies any abdominal pain/pelvic pain - She has a recent Hx of irregular periods for the past 1 yr with intermittent light and heavy cycles - Her last heavy period was in March and since then she has had one light period on 04/17/24. 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 0.6 cm cyst-like structure at the fundus. Right Ovary: Right ovary is within normal limits. Left Ovary: Left ovary is within normal limits. >> CHF - Managed per primary team >>T2DM - Managed per primary team >>HTN - Managed per primary team >> HLD - Managed per primary team Dispo: - Plan for EMB to evaluate endometrial lining due to sudden changes with heavy bleeding in the perimenopausal period - Discussed IUD placement with the patient and she is agreeable at bedside -U/S unremarkable Pt seen with Dr. England Problem List/Past Medical History CHF Type 2 Diabetes Mellitus Menorrhagia CAD s/p stent placements HTN HLD Anemia Abnormal uterine bleeding Procedure/Surgical History D&C EGD 2024 Colonoscopy 2024, 2015 Axillary Nipple removal Medications Inpatient Brilinta (ticagrelor), 90 mg= 1 tab(s), Oral, BID Dextrose 50% IV Push, 12.5 gram(s)= 25 mL, IV Push, AsDirected, PRN DuoNeb, 3 mL, Inhalation, q4hRT, PRN Ferrlecit furosemide for IV 100 mg [10 mg/hr] + Sodium Chloride 0.9% intravenous solution 90 mL guaiFENesin, 200 mg= 10 mL, Oral, q4h, PRN HumaLOG 100 units/mL subcutaneous solution, Give 0-15 units/dose, Subcutaneous, TIDAC Jardiance, 10 mg= 1 tab(s), Oral, qAM KCL, 40 mEq= 2 tab(s), Oral, qDayM Lantus, 5 unit(s)= 0.05 mL, Subcutaneous (INT), qHS losartan, 25 mg= 1 tab(s), Oral, qDay magnesium oxide, 400 mg= 1 tab(s), Oral, BID magnesium sulfate for IV bolus, 2 gram(s)= 50 mL, IV Piggyback, Once melatonin, 3 mg= 1 tab(s), Oral, qHS, PRN Miralax Powder Packet, 17 gram(s)= 15 mL, Oral, qDay, PRN pantoprazole, 40 mg= 1 tab(s), Oral, qDayAC potassium chloride, 40 mEq= 2 tab(s), Oral, Once spironolactone, 25 mg= 1 tab(s), Oral, qDayM Tylenol, 650 mg= 2 tab(s), Oral, q4h, PRN Tylenol, 650 mg= 2 tab(s), Oral, q4h, PRN Zofran, 4 mg= 2 mL, IV Push, q4h, PRN Home acetaminophen, 650 mg, Oral, q6hr, PRN Alcohol Swabs, See Instructions atorvastatin 40 mg oral tablet, 40 mg= 1 tab(s), Oral, qDay, Not taking Blood Glucose Test Machine, See Instructions Blood Glucose Test Strips, See Instructions Brilinta (ticagrelor) 90 mg oral tablet, 90 mg= 1 tab(s), Oral, BID ferrous sulfate, 325 mg, Oral, TID folic acid 1 mg oral tablet, 1 mg= 1 tab(s), Oral, qDay, Not taking Insulin Lispro KwikPen 100 units/mL injectable solution, 6 unit(s)= 0.06 mL, Subcutaneous, TIDAC Lancets, See Instructions Lantus Solostar Pen 100 units/mL 3 mL Pen, 30 unit(s), Subcutaneous, qHS lisinopril, 10 mg, Oral, qDay losartan 50 mg oral tablet, 50 mg= 1 tab(s), Oral, qDay, Not taking metoprolol succinate 100 mg oral TABLET extended release, 100 mg= 1 tab(s), Oral, BID, Not taking Pen needles, See Instructions Allergies penicillin (Mild) vomiting Latex morphine Nausea and vomiting Social History Alcohol Use: Never., 11/09/2023 Substance Abuse Use: Never., 11/09/2023 Tobacco Nicotine Use: Never (less than 100 in lifetime)., 11/09/2023 Family History No significant family Hx of cancers (breast, ovary, uterine, colon, stomach) Immunizations No qualifying data available. Digitally Signed by GEO ZAMBRANO MD on 05/11/2024 06:56 PM Digitally Signed by SHARDA ENGLAND MD on 05/12/2024 01:41 AM [facility] [id number] Nurse Progress note Talk to Doctor concerning label not being able to scan for endometrial biopsy, Doctor stated ok to send specimen to microbiology to be sent to pathology Digitally Signed by Nayely Martinez RN on 05/11/2024 10:28 PM [facility] [id number] Note Date of Service 05/11/2024 Subjective Patient states that she is motivated to get home before Monday if possible. She states that she haswork Monday night and cannot miss too much work. She is otherwise stating that she is currently notactively having her menstruation but when she does, she has heavy periods that are on and off, lately they have been more light but she has days where she bleeds quite heavily. She states that because of her insurance issue, she has not establish with a java application developer yet. Today, she states that she is urinating quite well, urine output of 2.3 L reported in the last 24 hours. Objective Vitals and Measurements T: 36.5 C (Oral) TMIN: 36.4 C (Oral) TMAX: 36.9 C (Oral) HR: 100 (Monitored) RR: 16 BP: 127/80 SpO2: 99% WT: 80.4 kg Intake and Output 7AM Yesterday to 7AM Today Intake and Output (Last 24 hours) Intake Oral Intake 1577.00 Administration Information 80.00 Output Urine Voided 3550.00 Stool Count 0.00 Urine Count 3.00 Total Summary Total Intake 1657.00 Total Output 3550.00 Fluid Balance -1893.00 Physical Exam Patient is resting at the bedside accompanied by her aunt. Lower extremity edema is improved, stillhas 2+ pitting edema bilaterally up to the knees. Previous this was even higher. She is alert and oriented x 3, no focal neurologic deficits. Chest is clear to auscultation bilaterally, no wheezing crackles or rhonchi. Elevated JVP. Weight Dosing Weight: 80.4 kg (05/11/24) Dosing Weight: 80.8 kg (05/10/24) Medications Medications (20) Active Scheduled: (11) empagliflozin 10 mg tablet 10 mg 1 tab(s), Oral, qAM insulin glargine 5 unit(s) 0.05 mL, Subcutaneous (INT), qHS insulin lispro 100 units/mL Soln (3 mL) Give 0-15 units/dose, Subcutaneous, TIDAC levonorgestrel 52 mg Intrauterine Device 52 mg 1 EA, Intrauterine, Once losartan 25 mg tablet 25 mg 1 tab(s), Oral, qDay magnesium oxide 400 mg Tablet 400 mg 1 tab(s), Oral, BID pantoprazole 40 mg EC tablet 40 mg 1 tab(s), Oral, qDayAC potassium chloride 20 mEq ER tablet 40 mEq 2 tab(s), Oral, qDayM sodium ferric gluconate complex 250 mg 20 mL, IV Piggyback, qDay spironolactone 25 mg tablet 25 mg 1 tab(s), Oral, qDayM ticagrelor 90 mg tablet 90 mg 1 tab(s), Oral, BID Continuous: (1) furosemide 100 mg [10 mg/hr] + Sodium Chloride 0.9% 90 mL 90 mL, Intravenous, 10 mL/hr PRN: (8) acetaminophen 325 mg Tablet 650 mg 2 tab(s), Oral, q4h acetaminophen 325 mg Tablet 650 mg 2 tab(s), Oral, q4h albuterol - ipratropium 2.5 mg-0.5 mg/3 mL Inhal Pranav UD 3 mL, Inhalation, q4hRT dextrose 50% Solution Disp syringe 50 mL 12.5 gram(s) 25 mL, IV Push, AsDirected guaifenesin 100 mg/5 mL Liquid 120 mL 200 mg 10 mL, Oral, q4h melatonin 3 mg tablet 3 mg 1 tab(s), Oral, qHS ondansetron 2 mg/ 1 mL 2 mL INJ 4 mg 2 mL, IV Push, q4h polyethylene glycol 3350 - UD packet 17 gram(s) 15 mL, Oral, qDay Lab Results 05/11 10:07 WBC: 5.0 Hgb: 7.0 L Hct: 22.8 L Platelet: 353 Neutrophil %: 80.0 H Glucose Level: 111 H Sodium Level: 138 Potassium Level: 3.5 BUN: 17.0 Creatinine Lvl (s): 0.90 EKG No qualifying data available. Assessment/Plan Acute exacerbation of chronic heart failure with now reduced ejection fraction of 40 to 45%, grade 1 diastolic dysfunction Moderate MR Pulm arterial hypertension with RVSP of 49 Mild to moderate TR Acute on chronic anemia without any active eviden Menorrhagia Iron deficiency anemia Anabaptism, avoid blood products Bilateral lower extremity edema, secondary to CHF, negative for DVT Hypoglycemia iatrogenic, with history of type 2 diabetes DVT prophylaxis: SCDs CODE STATUS: Full code Plan: Patient presented with symptoms consistent with symptomatic anemia and what appears to be high-output heart failure. Echocardiogram was performed, has an ejection fraction of 40 to 45%, grade 1 diastolic dysfunction. Requires outpatient cardiology follow-up has a history of CAD status post PCI and currently on Brilinta. Likely ischemic cardiomyopathy. Has been seen by cardiology here in the hospital, currently on Lasix drip, renal function intact, blood pressure able to tolerate. Having adequate response. Strict I's and O's, daily weights, low-sodium diet. Elevate lower extremities, PAULINE hoses to lower extremities. Doppler studies were performed to rule out VTE, no evidence of DVT/SVT. Telemetry reviewed, sinus rhythm. Appreciate ongoing input from cardiology. Was started on spironolactone along with Jardiance. Can consider Entresto when she is more euvolemic. Regards to the patient's anemia: She had a extensive workup at [place] including upper and lower endoscopy which did not show any source of bleeding. FOBT here is pending but she does not have any evidence of blood loss through thegut. Could have occult blood losses but she had endoscopy already. Studies point towards iron deficiency. Currently receiving IV iron. Hematology following, considering further workup, appreciate their ongoing input. Will need to follow-up with them in the outpatient setting upon discharge. Patient is a Anabaptism and therefore cannot have any blood products. Monitor H&H closely. Discussed with cardiology, will need to review whether she can be changed to Plavix or other Brilinta. Patient also explains that she has been having menorrhagia. Will consult gynecology, discussed with them over the phone, will plan to obtain ultrasound and provide further recommendations. Thank you. Patient had an episode of hypoglycemia when we resumed her home medications that were reconciled. Avoid hypoglycemia, will discontinue her current insulin regimen. I clarified with the patient, states that she does not take scheduled insulin, only takes as any pills and based on her symptoms and blood glucose level. I am not sure why she is on this regimen, shestates that the medications that are prescribed were not scheduled. Therefore, reduce Lantus to 5 units every night, continue sliding scale insulin. Discontinue scheduled mealtime insulin. ADA diet. Monitor potassium and magnesium closely. Monitor kidney function. Replete to maintain a potassium of 4, magnesium of 2. Plan of care discussed with patient as well as her aunt who was present at bedside during my encounter. All questions answered in detail. I explained to the patient that it is less likely that she will be discharged by the end of day tomorrow given her current volume status and further management that is required. She stated that she will try her best to take off from work which is hoping that she could at least leave on Monday. This is a note transcribed by me, the attending physician on service using the 'Bindo' dictation software. Please excuse any grammatical errors, repetitions/duplications if any are present in the entirety of this note. Thank you. Level of Care Indication SD monitor (CHF exacerbation) DVT Prophylaxis Other: specify in note Maintenance IVF Indication NA / No maintenance IVF Indwelling Urinary Catheter Indication NA No indwelling catheter Anticipated Timeline of Discharge 72+ hours Anticipated DC Disposition Home without services Digitally Signed by ABRAHAN LUNDBERG MD on 05/11/2024 08:42 PM [facility] [id number] Cardiology Consult note Date of Service 05/10/2024 Reason for Consultation CHF Referring Physician Hospitalist History of Present Illness 54-year-old female with past medical history of CAD s/p PCI x 3 (unclear anatomy, last sent a little under a year ago per patient), T2DM, hypertension, hyperlipidemia, and anemia (patient is Anabaptism), presented to the hospital for evaluation of acute fluid buildup in her legs that started yesterday. She also reports that she has been experiencing shortness of breath and difficulty laying flat. This all started within the last day or 2. She is also noted increased abdominal swelling and bloating. She has no previous history of heart failure. She does not have any associated chest discomfort or pressure. The only associated symptom is heavy menstrual periods and occasionally passingclots. She has no active signs of bleeding and no changes to her stool recently. Initial lab work showed elevated NT proBNP of 13,000, high sensitive troponins negative x 2. Renal function electrolytes within normal limits. Chest x-ray not exactly consistent with pulmonary edema or congestion, possibly underlying infiltrate appearance. She was started on IV Lasix 40 mg twice daily. The patient states that she has not been making much urine with the IV Lasix she was receiving on admission. Cardiology's been consulted for evaluation and management of suspected new onset heart failure. Review of Systems Negative unless noted in HPI. Physical Exam Vitals and Measurements T: 37.0 C (Oral) TMIN: 36.7 C (Oral) TMAX: 37.2 C (Oral) HR: 101 (Monitored) RR: 18 BP: 121/83 SpO2: 97% HT: 170.2 cm WT: 80.8 kg BMI: 27.89 Weight Dosing Weight: 80.8 kg (05/10/24) Dosing Weight: 80.8 kg (05/09/24) General: AAOX3, NAD HEENT: Anicteric sclera, MMM Neck: Trachea midline, positive JVD CVS: RRR, normal S1/S2, no murmurs/rubs/gallops Lung: CTAB, no wheezes/rhonchi/rales Abd: Distended, nontender Extrem: WWP, BLE 2+ edema up to the thighs Skin: Warm, Intact Neuro: AAOX3, spontaneous movement of all extremities Psych: Appropriate mood & affect Lab Results 05/10 06:11 WBC: 5.5 Hgb: 6.1 C Hct: 19.9 L Platelet: 333 Neutrophil %: 65.7 Protime: 11.8 PT International Ratio: 1.0 Glucose Level: 223 H Sodium Level: 135 L Potassium Level: 4.2 BUN: 11.0 Creatinine Lvl (s): 0.70 05/09 20:30 WBC: 7.1 Hgb: 6.7 C Hct: 23.1 L Platelet: 371 Neutrophil %: 78.3 H Glucose Level: 528 C Sodium Level: 133 L Potassium Level: 4.9 BUN: 12 Creatinine Lvl (s): 1.01 Imaging Results and Diagnostics XR Chest 2 Views Result Date: May 09, 2024 Verified By: POLO ESTRADA MD CLINICAL STATEMENT: IMPRESSION: Low lung volumes with perihilar and lower lung field opacities concerning forpneumonia or other infiltrates. Correlate clinically and follow-up toresolution. Assessment/Plan Orders: furosemide 100 mg [10 mg/hr] + Sodium Chloride 0.9% intravenous solution 90 mL(furosemide for IV 100 mg [10 mg/hr] + Sodium Chloride 0.9% intravenous solution 90 mL), Start: 05/10/24 15:52:00 EST, Rate: 10 mL/hr, 05/10/24 15:52:00 EST Possible new onset heart failure CAD s/p PCI x 3 on Brilinta T2DM Hypertension Hyperlipidemia Severe microcytic anemia, JOSH Anabaptism Plan: Cardiology has been consulted for evaluation management of possible new onset heart failure. The patient is significantly volume overloaded peripherally and has evidence of central hypervolemia with prominent JVD. Recommend further evaluation with echocardiogram this admission. Patient has not beenresponding significantly to IV Lasix 40 mg twice daily. Would recommend transition to continuous Lasix infusion 10 mg/h. Reasonable to continue lisinopril 10 mg daily for now. Please monitor labs daily. Replace electrolytes to maintain K greater than 4 and Mg greater than 2. Certainly with severe anemia can be contributing to HF symptoms as well. Discussed with primary team that this should be inv estigated further, particularly since the patient has been describing heavy menstrual periods and is on an antiplatelet agent status post PCI. Cardiology will follow along and reassess response. Additional recommendations to follow pending findings of echocardiogram. Procedure/Surgical History No qualifying data available. Medications Inpatient Brilinta (ticagrelor), 90 mg= 1 tab(s), Oral, BID Dextrose 50% IV Push, 12.5 gram(s)= 25 mL, IV Push, AsDirected, PRN DuoNeb, 3 mL, Inhalation, q4hRT, PRN Ferrlecit furosemide for IV 100 mg [10 mg/hr] + Sodium Chloride 0.9% intravenous solution 90 mL guaiFENesin, 200 mg= 10 mL, Oral, q4h, PRN HumaLOG 100 units/mL subcutaneous solution, Give 0-15 units/dose, Subcutaneous, TIDAC insulin lispro (HumaLOG), 6 unit(s)= 0.06 mL, Subcutaneous, TIDAC KCL, 40 mEq= 2 tab(s), Oral, qDayM Lantus, 30 unit(s)= 0.3 mL, Subcutaneous (INT), qHS lisinopril, 10 mg= 1 tab(s), Oral, qDay melatonin, 3 mg= 1 tab(s), Oral, qHS, PRN Miralax Powder Packet, 17 gram(s)= 15 mL, Oral, qDay, PRN pantoprazole, 40 mg= 1 tab(s), Oral, qDayAC Tylenol, 650 mg= 2 tab(s), Oral, q4h, PRN Tylenol, 650 mg= 2 tab(s), Oral, q4h, PRN Zofran, 4 mg= 2 mL, IV Push, q4h, PRN Home acetaminophen, 650 mg, Oral, q6hr, PRN Alcohol Swabs, See Instructions atorvastatin 40 mg oral tablet, 40 mg= 1 tab(s), Oral, qDay, Not taking Blood Glucose Test Machine, See Instructions Blood Glucose Test Strips, See Instructions Brilinta (ticagrelor) 90 mg oral tablet, 90 mg= 1 tab(s), Oral, BID ferrous sulfate, 325 mg, Oral, TID folic acid 1 mg oral tablet, 1 mg= 1 tab(s), Oral, qDay, Not taking Insulin Lispro KwikPen 100 units/mL injectable solution, 6 unit(s)= 0.06 mL, Subcutaneous, TIDAC Lancets, See Instructions Lantus Solostar Pen 100 units/mL 3 mL Pen, 30 unit(s), Subcutaneous, qHS lisinopril, 10 mg, Oral, qDay losartan 50 mg oral tablet, 50 mg= 1 tab(s), Oral, qDay, Not taking metoprolol succinate 100 mg oral TABLET extended release, 100 mg= 1 tab(s), Oral, BID, Not taking Pen needles, See Instructions Allergies penicillin (Mild) vomiting Latex morphine Nausea and vomiting Social History Alcohol Use: Never., 11/09/2023 Substance Abuse Use: Never., 11/09/2023 Tobacco Nicotine Use: Never (less than 100 in lifetime)., 11/09/2023 Immunizations No qualifying data available. Digitally Signed by JOSEP KINNEY DO on 05/10/2024 07:53 PM [facility] [id number] Note* Exam Date Time Procedure Performing Provider Status 05/11/24 4:24 PM US Pelvis Non-OB W/Transvaginal POLO HERNANDEZ MD; Auth (Verified) [id number] ORIGINAL EXAMINATION: Transabdominal and TRANSVAGINAL PELVIC ULTRASOUND 05/11/2024 TECHNIQUE: Transabdominal and transvaginal pelvic ultrasound was performed. COMPARISON: None HISTORY: ORDERING SYSTEM PROVIDED HISTORY: Reason for Exam: Menorrhagia FINDINGS: Measurements: Uterus: 9.3 x 5.3 x 5.7 cm Endometrial stripe: 0.6 cm Right Ovary:3.5 x 2.0 x 1.8 cm Left Ovary: Not visualized due to overlying bowel gas Ultrasound Findings: Uterus: Uterus demonstrates normal myometrial echotexture. Endometrial stripe: Suggested a few tiny endometrial cysts and/or calcifications at the fundus. 0.6 cm cyst-like structure at the fundus. Right Ovary: Right ovary is within normal limits. Left Ovary: Left ovary is within normal limits. Free Fluid: No evidence of free fluid. IMPRESSION: No acute findings. Interpreted by: Polo Estrada Preliminary Report By: Polo Estrada Electronically signed By Polo Estrada Dictated Date: 05/11/2024 4:36:31 PM Prelim Date: 05/11/2024 4:41:07 PM Sign Date: 05/11/2024 4:41:07 PM Ordering Provider: GEO ZAMBRANO [facility] [id number] Gynecology Consult note Date of Service 05/11/24 Reason for Consultation Anemia in the setting of Menorrhagia Referring Physician Dr. Lundberg History of Present Illness Patient is a 54 yo female who was admitted on 05/10/2024 due to anemia and CHF exacerbation. She initially presented for shortness of breath and was found to have heart failure exacerbation and anemia with a Hbg of 6.1. She states that she has regular periods every month, but over the past yearshe has has intermittent light and heavy menstrual cycles. She is usually on her menstrual cycle for 3 days. On the months she is experiencing heavy bleeding she uses maxi pads and heavy tampons every 2 hrs. She also reports passing clots the size of sabra and intermittent cramping. She denies anypelvic pain or abdominal pain. She has never a history of heavy periods prior to the past year, 2023. She has not seen in OBGYN in at least 2 years, after her last pap smear. She denies any history of fibroids, bleeding disorders, prior ablation, cervical surgery. Of note she was admitted at [facility] recently for sever anemia, Hgb 5 s/p IV iron infusions. Gastroenterology was consulted, she underwent an EGD and a colonoscopy which were within normal limits per patient. Record for the EGD was [facility] on [facility]. Patient has never been on hormonal contraceptive methods. She is a Jehovah's witnessand prefers to not receive any blood products or blood product agents. Patient denies change in weight despite or appetite. Patient denies any chest pain. Patient denies nausea, vomiting, bloating, abdominal pain. Patient denies any urinary complaints such as dysuria orhematuria. Patient denies vaginal discharge or vaginal bleeding. Patient denies constipation or diarrhea. No further concerns or complaints at this time and all questions were addressed thoroughly. 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 Last heavy period in March Menarche: 14 y.o Patient denies history of STDs. Control: Has never been on hormonal control Denies history hormone replacement therapy No history of abnormal pap smears. Most recent Pap smears: 2021 - , HPV negative Mammograms: 2021 - Colonoscopy: Performed on previous admission in [facility] - No abnormalities noted on exam. EGD: Normal on prior admission @ [facility] Medical History: CHF Type 2 Diabetes Mellitus Menorrhagia CAD s/p stent placements HTN HLD Anemia Abnormal uterine bleeding Surgical history: D&C EGD 2024 Colonoscopy 2024, 2015 Axillary Nipple removal Social history: No smoking, drinking, drugs Family history: No significant family Hx of cancers (breast, ovary, uterine, colon, stomach) Allergies: Penicillin Latex Morphine Review of Systems See HPI Physical Exam Vitals and Measurements T: 36.5 C (Oral) TMIN: 36.4 C (Oral) TMAX: 36.9 C (Oral) HR: 100 (Monitored) RR: 16 BP: 127/80 SpO2: 99% WT: 80.4 kg Weight Dosing Weight: 80.4 kg (05/11/24) Dosing Weight: 80.8 kg (05/10/24) Physical Exam: General: NAD Cardiovascular: no JVD Respiratory: no labored breathing Abdomen: soft, gravid, nontender :pending Extremities: minimal edema Lab Results 05/11 10:07 WBC: 5.0 Hgb: 7.0 L Hct: 22.8 L Platelet: 353 Neutrophil %: 80.0 H Glucose Level: 111 H Sodium Level: 138 Potassium Level: 3.5 BUN: 17.0 Creatinine Lvl (s): 0.90 05/10 06:11 WBC: 5.5 Hgb: 6.1 C Hct: 19.9 L Platelet: 333 Neutrophil %: 65.7 Protime: 11.8 PT International Ratio: 1.0 Glucose Level: 223 H Sodium Level: 135 L Potassium Level: 4.2 BUN: 11.0 Creatinine Lvl (s): 0.70 Imaging Results and Diagnostics US Pelvis Non-OB W/Transvaginal Result Date: May 11, 2024 Verified By: POLO ESTRADA MD CLINICAL STATEMENT: IMPRESSION: No acute findings. XR Chest 2 Views Result Date: May 09, 2024 Verified By: POLO ESTRADA MD CLINICAL STATEMENT: IMPRESSION: Low lung volumes with perihilar and lower lung field opacities concerning forpneumonia or other infiltrates. Correlate clinically and follow-up toresolution. Assessment/Plan Patient is a 54 year old female who was admitted due to CHF exacerbation and anemia. 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 >>Anemia/Menorrhagia - Hb.1 -> 7.0. Pt is a Jehovah witness so does not want blood products - She has been receiving IV Iron infusions and was admitted 10 days ago for anemia as well in [facility]. - She denies any dizziness or SOB currently - Denies any abdominal pain/pelvic pain - She has a recent Hx of irregular periods for the past 1 yr with intermittent light and heavy cycles - Her last heavy period was in March and since then she has had one light period on 04/17/24. 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 0.6 cm cyst-like structure at the fundus. Right Ovary: Right ovary is within normal limits. Left Ovary: Left ovary is within normal limits. >> CHF - Managed per primary team >>T2DM - Managed per primary team >>HTN - Managed per primary team >> HLD - Managed per primary team Dispo: - Plan for EMB to evaluate endometrial lining due to sudden changes with heavy bleeding in the perimenopausal period - Discussed IUD placement with the patient and she is agreeable at bedside -U/S unremarkable Pt seen with Dr. England Problem List/Past Medical History CHF Type 2 Diabetes Mellitus Menorrhagia CAD s/p stent placements HTN HLD Anemia Abnormal uterine bleeding Procedure/Surgical History D&C EGD 2024 Colonoscopy 2024, 2015 Axillary Nipple removal Medications Inpatient Brilinta (ticagrelor), 90 mg= 1 tab(s), Oral, BID Dextrose 50% IV Push, 12.5 gram(s)= 25 mL, IV Push, AsDirected, PRN DuoNeb, 3 mL, Inhalation, q4hRT, PRN Ferrlecit furosemide for IV 100 mg [10 mg/hr] + Sodium Chloride 0.9% intravenous solution 90 mL guaiFENesin, 200 mg= 10 mL, Oral, q4h, PRN HumaLOG 100 units/mL subcutaneous solution, Give 0-15 units/dose, Subcutaneous, TIDAC Jardiance, 10 mg= 1 tab(s), Oral, qAM KCL, 40 mEq= 2 tab(s), Oral, qDayM Lantus, 5 unit(s)= 0.05 mL, Subcutaneous (INT), qHS losartan, 25 mg= 1 tab(s), Oral, qDay magnesium oxide, 400 mg= 1 tab(s), Oral, BID magnesium sulfate for IV bolus, 2 gram(s)= 50 mL, IV Piggyback, Once melatonin, 3 mg= 1 tab(s), Oral, qHS, PRN Miralax Powder Packet, 17 gram(s)= 15 mL, Oral, qDay, PRN pantoprazole, 40 mg= 1 tab(s), Oral, qDayAC potassium chloride, 40 mEq= 2 tab(s), Oral, Once spironolactone, 25 mg= 1 tab(s), Oral, qDayM Tylenol, 650 mg= 2 tab(s), Oral, q4h, PRN Tylenol, 650 mg= 2 tab(s), Oral, q4h, PRN Zofran, 4 mg= 2 mL, IV Push, q4h, PRN Home acetaminophen, 650 mg, Oral, q6hr, PRN Alcohol Swabs, See Instructions atorvastatin 40 mg oral tablet, 40 mg= 1 tab(s), Oral, qDay, Not taking Blood Glucose Test Machine, See Instructions Blood Glucose Test Strips, See Instructions Brilinta (ticagrelor) 90 mg oral tablet, 90 mg= 1 tab(s), Oral, BID ferrous sulfate, 325 mg, Oral, TID folic acid 1 mg oral tablet, 1 mg= 1 tab(s), Oral, qDay, Not taking Insulin Lispro KwikPen 100 units/mL injectable solution, 6 unit(s)= 0.06 mL, Subcutaneous, TIDAC Lancets, See Instructions Lantus Solostar Pen 100 units/mL 3 mL Pen, 30 unit(s), Subcutaneous, qHS lisinopril, 10 mg, Oral, qDay losartan 50 mg oral tablet, 50 mg= 1 tab(s), Oral, qDay, Not taking metoprolol succinate 100 mg oral TABLET extended release, 100 mg= 1 tab(s), Oral, BID, Not taking Pen needles, See Instructions Allergies penicillin (Mild) vomiting Latex morphine Nausea and vomiting Social History Alcohol Use: Never., 11/09/2023 Substance Abuse Use: Never., 11/09/2023 Tobacco Nicotine Use: Never (less than 100 in lifetime)., 11/09/2023 Family History No significant family Hx of cancers (breast, ovary, uterine, colon, stomach) Immunizations No qualifying data available. Digitally Signed by GEO ZAMBRANO MD on 05/11/2024 06:56 PM Digitally Signed by SHARDA ENGLAND MD on 05/12/2024 01:41 AM [id number] Note* Exam Date Time Procedure Performing Provider Status 05/11/24 11:30 AM VL Venous US/Doppler Both Legs(for DVT) NAYA PRESLEY MD; Auth (Verified) [facility] [id number] Cardiology Progress note Subjective No acute overnight events Objective Vitals and Measurements T: 36.5 C (Oral) TMIN: 36.4 C (Oral) TMAX: 36.9 C (Oral) HR: 97 (Monitored) RR: 18 BP: 126/80 SpO2:99% WT: 80.4 kg Intake and Output 7AM Yesterday to 7AM Today Intake and Output (Last 24 hours) Intake Oral Intake 917.00 Output Urine Voided 2300.00 Stool Count 0.00 Urine Count 4.00 Total Summary Total Intake 917.00 Total Output 2300.00 Fluid Balance -1383.00 Physical Exam General Appearance: Alert and oriented x3, no acute distress Head: Normocephalic atraumatic EENT: Conjunctiva pink, sclera normal, Neck: No lumps or swellings noted Cardiac: S1, S2, no S3 or S4, JVD Lungs: Clear to auscultation bilaterally Abdomen: Soft, nontender, nondistended bowel sounds positive Musculoskeletal: No joint swelling Extremities: Warm well perfused, Neurological: Grossly intact nonfocal Skin: No rashes Psychiatric: Normal mood, normal affect Weight Dosing Weight: 80.4 kg (05/11/24) Dosing Weight: 80.8 kg (05/10/24) Medications Medications (22) Active Scheduled: (13) empagliflozin 10 mg tablet 10 mg 1 tab(s), Oral, qAM insulin glargine 30 unit(s) 0.3 mL, Subcutaneous (INT), qHS insulin lispro 100 units/mL Soln (3 mL) 5 unit(s) 0.05 mL, Subcutaneous, acBR insulin lispro 100 units/mL Soln (3 mL) 5 unit(s) 0.05 mL, Subcutaneous, acLUN insulin lispro 100 units/mL Soln (3 mL) Give 0-15 units/dose, Subcutaneous, TIDAC lisinopril 10 mg tablet 10 mg 1 tab(s), Oral, qDay magnesium oxide 400 mg Tablet 400 mg 1 tab(s), Oral, BID pantoprazole 40 mg EC tablet 40 mg 1 tab(s), Oral, qDayAC potassium chloride 20 mEq ER tablet 40 mEq 2 tab(s), Oral, qDayM potassium chloride 20 mEq ER tablet 40 mEq 2 tab(s), Oral, Once sodium ferric gluconate complex 250 mg 20 mL, IV Piggyback, qDay spironolactone 25 mg tablet 25 mg 1 tab(s), Oral, qDayM ticagrelor 90 mg tablet 90 mg 1 tab(s), Oral, BID Continuous: (1) furosemide 100 mg [10 mg/hr] + Sodium Chloride 0.9% 90 mL 90 mL, Intravenous, 10 mL/hr PRN: (8) acetaminophen 325 mg Tablet 650 mg 2 tab(s), Oral, q4h acetaminophen 325 mg Tablet 650 mg 2 tab(s), Oral, q4h albuterol - ipratropium 2.5 mg-0.5 mg/3 mL Inhal Pranav UD 3 mL, Inhalation, q4hRT dextrose 50% Solution Disp syringe 50 mL 12.5 gram(s) 25 mL, IV Push, AsDirected guaifenesin 100 mg/5 mL Liquid 120 mL 200 mg 10 mL, Oral, q4h melatonin 3 mg tablet 3 mg 1 tab(s), Oral, qHS ondansetron 2 mg/ 1 mL 2 mL INJ 4 mg 2 mL, IV Push, q4h polyethylene glycol 3350 - UD packet 17 gram(s) 15 mL, Oral, qDay Lab Results 05/11 10:07 WBC: 5.0 Hgb: 7.0 L Hct: 22.8 L Platelet: 353 Neutrophil %: 80.0 H Glucose Level: 111 H Sodium Level: 138 Potassium Level: 3.5 BUN: 17.0 Creatinine Lvl (s): 0.90 05/10 06:11 WBC: 5.5 Hgb: 6.1 C Hct: 19.9 L Platelet: 333 Neutrophil %: 65.7 Protime: 11.8 PT International Ratio: 1.0 Glucose Level: 223 H Sodium Level: 135 L Potassium Level: 4.2 BUN: 11.0 Creatinine Lvl (s): 0.70 EKG No qualifying data available. Assessment/Plan Orders: empagliflozin(Jardiance), 10 mg= 1 tab(s), Oral, qAM magnesium oxide, 400 mg= 1 tab(s), Oral, BID potassium chloride, 40 mEq= 2 tab(s), Oral, Once spironolactone, 25 mg= 1 tab(s), Oral, qDayM Acute chronic heart failure with reduced ejection fraction Severe anemia Anabaptism Moderate mitral regurgitation mild to moderate tricuspid regurgitation History of CAD s/p PCI Continue diuresis on optimization of volume status. Add spironolactone and Jardiance potassium and magnesium. Likely need to be transition to Entresto as well. Digitally Signed by ZACHARY MELGOZA MD on 05/11/2024 04:07 PM [facility] [id number] Hematology Progress note Date of Service MARIELLA RAMIREZ 54F Jehovah s Witness with menorrhagia, chronic anemia with JOSH, HTN, HLD, DM2 with DKA, CAD with stents on antiplatelet, family history of HbSS. She is admitted for CHF exacerbation. Hematology consulted for recurrent anemia. Recently admitted to [facility] for anemia, s/p IV iron infusion and GI workup with EGD/CSP with no concerning findings. She was started on IV iron here by primary team. Chart review performed. CBC with Hgb slightly lower at 6.1 from admission level of 6.7. WBC and platelets normal. MCV microcytic. Chem panel with glucose elevated at 223, down from 528 on admission. 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 TSH normal. HbE pending. #Acute microcytic on chronic anemia, with evidence of component of JOSH, in patient who is a Jehovahs Witness. Iron panel could be affected by most recent IV iron infusions at OSH, but there is evidence of iron-restricted erythropoiesis with low iron saturation and elevated ferritin. Can continue IV iron for now, but with the history of menorrhagia would recommend [employer] evaluation for management. Occult GI bleed could also be possibility given patient is at risk for such with antiplatelet therapy, and I will defer management of such to primary team and cardiology. HbSS is being evaluated with HbE, although bilirubin is normal so less suspicion for hemolysis currently. -Continue IV iron per primary team (reasonable to continue especially given beneficial data with CHF) -Followup pending labs -Recommend [employer] consultation for menorrhagia management Hematology will follow peripherally while awaiting other studies Digitally Signed by DANIELLE JOYNER MD on 05/11/2024 08:02 AM [facility] [id number] Hematology Consult note Date of Service 05/10/2024 Reason for Consultation Anemia History of Present Illness This is a 54-year-old female with a past medical history significant for diabetes mellitus type II,diabetic ketoacidosis, coronary artery disease status post multiple stents, hypertension, and hyperlipidemia. She presented to the emergency room for further evaluation of her shortness of breath andlower extremity edema. The patient was recently admitted for around a week at [facility] and was discharged from there two days ago. During that admission the patient was there for anemia and was found to have a hemoglobin of five. Patient was found to have iron deficiency anemia and was given multiple iron infusions. She was evaluated by gastroenterology and they did do an upper endoscopy as well as colonoscopy w hich did not show any concerning finding. I met with Mariella this morning, she was sitting comfortably at the side of the bed. She states that her shortness of breath has improved but also that it worsens at night or out in the cold. She has developed a new onset of a dry nonproductive cough. Severe swelling in her bilateral lower extremities has improved, she received some diuretics that she states has helped with this. The patient deniesany outward signs of bleeding including stool, urine, nosebleeds, or gum bleeds. The patient deniesfeeling extremely weak or fatigued lately. Denies lightheaded and dizziness. The patient denies chest pain. She reports she does not have a history of illicit drug use, tobacco or alcohol abuse. Of note the patient is a Anabaptism. Review of Systems Review of systems in negative unless noted in the above HPI. Physical Exam Vitals and Measurements T: 37.0 C (Oral) TMIN: 36.7 C (Oral) TMAX: 37.2 C (Oral) HR: 101 (Monitored) RR: 18 BP: 121/83 SpO2: 97% HT: 170.2 cm WT: 80.8 kg BMI: 27.89 General: No apparent distress. Neurological: Alert and oriented x3. Grossly intact without focal deficit. Cardiovascular: S1 and S2 noted. No extra-audible heart tones. Respiratory: Bilaterally clear breath sounds with no crepitation or wheeze. Abdominal: Soft, nontender and nondistended. No guarding. Bowel sounds present. Extremities: +2 edema noted in bilateral lower extremities. Adequate peripheral circulation. Skin: warm and dry Psychological: appropriate mood and affect Weight Dosing Weight: 80.8 kg (05/10/24) Dosing Weight: 80.8 kg (05/09/24) Lab Results 05/10 06:11 WBC: 5.5 Hgb: 6.1 C Hct: 19.9 L Platelet: 333 Neutrophil %: 65.7 Protime: 11.8 PT International Ratio: 1.0 Glucose Level: 223 H Sodium Level: 135 L Potassium Level: 4.2 BUN: 11.0 Creatinine Lvl (s): 0.70 05/09 20:30 WBC: 7.1 Hgb: 6.7 C Hct: 23.1 L Platelet: 371 Neutrophil %: 78.3 H Glucose Level: 528 C Sodium Level: 133 L Potassium Level: 4.9 BUN: 12 Creatinine Lvl (s): 1.01 Assessment/Plan Anemia This is a 54-year-old female with a past medical history significant for diabetes mellitus type II,diabetic ketoacidosis, coronary artery disease status post multiple stents, hypertension, and hyperlipidemia. She presented to the emergency room for further evaluation of her shortness of breath andlower extremity edema. The patient was recently admitted for around a week at [facility] and was discharged from there two days ago. During that admission the patient was there for anemia and was found to have a hemoglobin of five. Patient was found to have iron deficiency anemia and was given multiple iron infusions. She was evaluated by gastroenterology and they did do an upper endoscopy as well as colonoscopy w [facility] did not show any concerning finding. CBC 05/10/24 06:11 05/09/24 20:30 11/11/23 09:13 Hct 19.9 % L 23.1 % L 34.2 % Hgb 6.1 G/dL C 6.7 G/dL C 11.3 G/dL L MCH 20.1 pg L 19.1 pg L 28.2 pg MCHC 30.6 G/dL L 28.9 G/dL L 33.1 G/dL MCV 65.5 fL L 66.3 fL L 85.3 fL MPV 8.2 fL 8.4 fL 8.2 fL Platelet 333 10^3/mcL 371 10^3/mcL 420 10^3/mcL RBC 3.04 10^6/mcL L 3.48 10^6/mcL L 4.01 10^6/mcL L RDW 22.1 % H 22.5 % H 13.4 % WBC 5.5 10^3/mcL 7.1 10^3/mcL 11.9 10^3/mcL H The primary team has ordered 3 days of IV iron. Hematology plan: This is a complicated case due to the patient being a Anabaptism. She does run an increased risk of complications due to the inability to offer her blood transfusions. The patient is currentlyon Brilinta we will order a occult stool to evaluate for the possibility of a slow GI bleed. We agree with the primary team ordering 3 days of IV iron. A peripheral smear will be sent to Dr. Davila at the [facility] for further evaluation. The assessment and plan were discussed with Dr. Davila. Please see addendum for further hematology/oncology input and plan of care. Procedure/Surgical History No qualifying data available. Medications acetaminophen, 650 mg, Oral, q6hr, PRN Alcohol Swabs, See Instructions atorvastatin 40 mg oral tablet, 40 mg= 1 tab(s), Oral, qDay, Not taking Blood Glucose Test Machine, See Instructions Blood Glucose Test Strips, See Instructions Brilinta (ticagrelor), 90 mg= 1 tab(s), Oral, BID Brilinta (ticagrelor) 90 mg oral tablet, 90 mg= 1 tab(s), Oral, BID Dextrose 50% IV Push, 12.5 gram(s)= 25 mL, IV Push, AsDirected, PRN DuoNeb, 3 mL, Inhalation, q4hRT, PRN Ferrlecit ferrous sulfate, 325 mg, Oral, TID folic acid 1 mg oral tablet, 1 mg= 1 tab(s), Oral, qDay, Not taking guaiFENesin, 200 mg= 10 mL, Oral, q4h, PRN HumaLOG 100 units/mL subcutaneous solution, Give 0-15 units/dose, Subcutaneous, TIDAC insulin lispro (HumaLOG), 6 unit(s)= 0.06 mL, Subcutaneous, TIDAC Insulin Lispro KwikPen 100 units/mL injectable solution, 6 unit(s)= 0.06 mL, Subcutaneous, TIDAC KCL, 40 mEq= 2 tab(s), Oral, qDayM Lancets, See Instructions Lantus, 30 unit(s)= 0.3 mL, Subcutaneous (INT), qHS Lantus Solostar Pen 100 units/mL 3 mL Pen, 30 unit(s), Subcutaneous, qHS Lasix, 40 mg= 4 mL, IV Push, BID lisinopril, 10 mg, Oral, qDay lisinopril, 10 mg= 1 tab(s), Oral, qDay losartan 50 mg oral tablet, 50 mg= 1 tab(s), Oral, qDay, Not taking melatonin, 3 mg= 1 tab(s), Oral, qHS, PRN metoprolol succinate 100 mg oral TABLET extended release, 100 mg= 1 tab(s), Oral, BID, Not taking Miralax Powder Packet, 17 gram(s)= 15 mL, Oral, qDay, PRN Pen needles, See Instructions Tylenol, 650 mg= 2 tab(s), Oral, q4h, PRN Tylenol, 650 mg= 2 tab(s), Oral, q4h, PRN Zofran, 4 mg= 2 mL, IV Push, q4h, PRN Allergies penicillin (Mild) vomiting Latex morphine Nausea and vomiting Social History Alcohol Use: Never., 11/09/2023 Substance Abuse Use: Never., 11/09/2023 Tobacco Nicotine Use: Never (less than 100 in lifetime)., 11/09/2023 Digitally Signed by ABIOLA BOSCH on 05/10/2024 12:34 PM [facility] [id number] Cardiology Consult note Date of Service 05/10/2024 Reason for Consultation CHF Referring Physician Hospitalist History of Present Illness 54-year-old female with past medical history of CAD s/p PCI x 3 (unclear anatomy, last sent a little under a year ago per patient), T2DM, hypertension, hyperlipidemia, and anemia (patient is Anabaptism), presented to the hospital for evaluation of acute fluid buildup in her legs that started yesterday. She also reports that she has been experiencing shortness of breath and difficulty laying flat. This all started within the last day or 2. She is also noted increased abdominal swelling and bloating. She has no previous history of heart failure. She does not have any associated chest discomfort or pressure. The only associated symptom is heavy menstrual periods and occasionally passingclots. She has no active signs of bleeding and no changes to her stool recently. Initial lab work showed elevated NT proBNP of 13,000, high sensitive troponins negative x 2. Renal function electrolytes within normal limits. Chest x-ray not exactly consistent with pulmonary edema or congestion, possibly underlying infiltrate appearance. She was started on IV Lasix 40 mg twice daily. The patient states that she has not been making much urine with the IV Lasix she was receiving on admission. Cardiology's been consulted for evaluation and management of suspected new onset heart failure. Review of Systems Negative unless noted in HPI. Physical Exam Vitals and Measurements T: 37.0 C (Oral) TMIN: 36.7 C (Oral) TMAX: 37.2 C (Oral) HR: 101 (Monitored) RR: 18 BP: 121/83 SpO2: 97% HT: 170.2 cm WT: 80.8 kg BMI: 27.89 Weight Dosing Weight: 80.8 kg (05/10/24) Dosing Weight: 80.8 kg (05/09/24) General: AAOX3, NAD HEENT: Anicteric sclera, MMM Neck: Trachea midline, positive JVD CVS: RRR, normal S1/S2, no murmurs/rubs/gallops Lung: CTAB, no wheezes/rhonchi/rales Abd: Distended, nontender Extrem: WWP, BLE 2+ edema up to the thighs Skin: Warm, Intact Neuro: AAOX3, spontaneous movement of all extremities Psych: Appropriate mood & affect Lab Results 05/10 06:11 WBC: 5.5 Hgb: 6.1 C Hct: 19.9 L Platelet: 333 Neutrophil %: 65.7 Protime: 11.8 PT International Ratio: 1.0 Glucose Level: 223 H Sodium Level: 135 L Potassium Level: 4.2 BUN: 11.0 Creatinine Lvl (s): 0.70 05/09 20:30 WBC: 7.1 Hgb: 6.7 C Hct: 23.1 L Platelet: 371 Neutrophil %: 78.3 H Glucose Level: 528 C Sodium Level: 133 L Potassium Level: 4.9 BUN: 12 Creatinine Lvl (s): 1.01 Imaging Results and Diagnostics XR Chest 2 Views Result Date: May 09, 2024 Verified By: POLO ESTRADA MD CLINICAL STATEMENT: IMPRESSION: Low lung volumes with perihilar and lower lung field opacities concerning forpneumonia or other infiltrates. Correlate clinically and follow-up toresolution. Assessment/Plan Orders: furosemide 100 mg [10 mg/hr] + Sodium Chloride 0.9% intravenous solution 90 mL(furosemide for IV 100 mg [10 mg/hr] + Sodium Chloride 0.9% intravenous solution 90 mL), Start: 05/10/24 15:52:00 EST, Rate: 10 mL/hr, 05/10/24 15:52:00 EST Possible new onset heart failure CAD s/p PCI x 3 on Brilinta T2DM Hypertension Hyperlipidemia Severe microcytic anemia, JOSH Anabaptism Plan: Cardiology has been consulted for evaluation management of possible new onset heart failure. The patient is significantly volume overloaded peripherally and has evidence of central hypervolemia with prominent JVD. Recommend further evaluation with echocardiogram this admission. Patient has not beenresponding significantly to IV Lasix 40 mg twice daily. Would recommend transition to continuous Lasix infusion 10 mg/h. Reasonable to continue lisinopril 10 mg daily for now. Please monitor labs daily. Replace electrolytes to maintain K greater than 4 and Mg greater than 2. Certainly with severe anemia can be contributing to HF symptoms as well. Discussed with primary team that this should be inv estigated further, particularly since the patient has been describing heavy menstrual periods and is on an antiplatelet agent status post PCI. Cardiology will follow along and reassess response. Additional recommendations to follow pending findings of echocardiogram. Procedure/Surgical History No qualifying data available. Medications Inpatient Brilinta (ticagrelor), 90 mg= 1 tab(s), Oral, BID Dextrose 50% IV Push, 12.5 gram(s)= 25 mL, IV Push, AsDirected, PRN DuoNeb, 3 mL, Inhalation, q4hRT, PRN Ferrlecit furosemide for IV 100 mg [10 mg/hr] + Sodium Chloride 0.9% intravenous solution 90 mL guaiFENesin, 200 mg= 10 mL, Oral, q4h, PRN HumaLOG 100 units/mL subcutaneous solution, Give 0-15 units/dose, Subcutaneous, TIDAC insulin lispro (HumaLOG), 6 unit(s)= 0.06 mL, Subcutaneous, TIDAC KCL, 40 mEq= 2 tab(s), Oral, qDayM Lantus, 30 unit(s)= 0.3 mL, Subcutaneous (INT), qHS lisinopril, 10 mg= 1 tab(s), Oral, qDay melatonin, 3 mg= 1 tab(s), Oral, qHS, PRN Miralax Powder Packet, 17 gram(s)= 15 mL, Oral, qDay, PRN pantoprazole, 40 mg= 1 tab(s), Oral, qDayAC Tylenol, 650 mg= 2 tab(s), Oral, q4h, PRN Tylenol, 650 mg= 2 tab(s), Oral, q4h, PRN Zofran, 4 mg= 2 mL, IV Push, q4h, PRN Home acetaminophen, 650 mg, Oral, q6hr, PRN Alcohol Swabs, See Instructions atorvastatin 40 mg oral tablet, 40 mg= 1 tab(s), Oral, qDay, Not taking Blood Glucose Test Machine, See Instructions Blood Glucose Test Strips, See Instructions Brilinta (ticagrelor) 90 mg oral tablet, 90 mg= 1 tab(s), Oral, BID ferrous sulfate, 325 mg, Oral, TID folic acid 1 mg oral tablet, 1 mg= 1 tab(s), Oral, qDay, Not taking Insulin Lispro KwikPen 100 units/mL injectable solution, 6 unit(s)= 0.06 mL, Subcutaneous, TIDAC Lancets, See Instructions Lantus Solostar Pen 100 units/mL 3 mL Pen, 30 unit(s), Subcutaneous, qHS lisinopril, 10 mg, Oral, qDay losartan 50 mg oral tablet, 50 mg= 1 tab(s), Oral, qDay, Not taking metoprolol succinate 100 mg oral TABLET extended release, 100 mg= 1 tab(s), Oral, BID, Not taking Pen needles, See Instructions Allergies penicillin (Mild) vomiting Latex morphine Nausea and vomiting Social History Alcohol Use: Never., 11/09/2023 Substance Abuse Use: Never., 11/09/2023 Tobacco Nicotine Use: Never (less than 100 in lifetime)., 11/09/2023 Immunizations No qualifying data available. Digitally Signed by NIRMALJOSEP on 05/10/2024 07:53 PM [facility] [id number] Note* Exam Date Time Procedure Performing Provider Status 05/10/24 3:12 PM Echocardiogram, Adult - CV ISMAEL, TO BRENNON Ponce MD; Auth (Verified) [facility] [id number] History and physical note [facility] Hospitalist History and Physical Date of Admission: patient is being admitted on May 10, 2024 Chief complaint: shortness of breath History of present illness: History is taken from talking with emergency room physician and [place] as well as talking with the patient. Patient has a past medical history of diabetes mellitus type II, diabetic ketoacidosis, coronary artery disease status post multiple stents, hypertension, hyperlipidemia. Patient was last discharged from here in October 2023 and during that admission the patient was here for diabetic ketoacidosis. Of note the patient was recently admitted for around a week at [facility] and was discharged from there two days ago. During that admission the patient was there for anemia and was found to have a hemoglobin of five. Patient was found to have iron deficiency anemia and was given multiple ironinfusions. She was evaluated by gastroenterology and they did do an upper endoscopy as well as colonoscopy which did not show any concerning finding. Of note during her recent hospital stay she was not given blood transfusions as she is a Jehovah witness. Patient denies having had any nausea or vomiting. Denies melena or hematochezia or hematuria. Patient went to [facility] in emergency room due to having ongoing severe bilateral lower extremity edemaand shortness of breath. She denies a cough. Denies chest pain. Per the patient she has no prior history of heart failure. Since presenting to the emergency room the patient has been afebrile, overall hemodynamically stable, 98% room air. The following labs and imaging were personally reviewed WBC 7.1 hemoglobin 6.7 and in October of last year was 11.3 glucose 528 sodium 133 otherwise no concerning finding on BMP alkaline phosphatase 127 AST 76 ALT 85 Pro BNP 13,240 high-sensitivity troponin 33 negative for COVID-19/flu/RSV chest x-ray showed lower lung field opacities of unclear etiology EKG personally reviewed and interpreted showed sinus tachycardia with a heart rate of 104 Prior to transfer the patient was given 20 mg IV Lasix and eight units of insulin. Past medical history: Diabetes Hypertension Family history: hypertension Social history: Denies smoking cigarettes or alcohol consumption Medications: Home Medications (15) Active acetaminophen 650 mg, PRN, Oral, q6hr Alcohol Swabs See Instructions atorvastatin 40 mg oral tablet 40 mg = 1 tab(s), Oral, qDay Blood Glucose Test Machine See Instructions Blood Glucose Test Strips See Instructions Brilinta (ticagrelor) 90 mg oral tablet 90 mg = 1 tab(s), Oral, BID ferrous sulfate 325 mg, Oral, TID folic acid 1 mg oral tablet 1 mg = 1 tab(s), Oral, qDay Insulin Lispro KwikPen 100 units/mL injectable solution 6 unit(s) = 0.06 mL, Subcutaneous, TIDAC Lancets See Instructions Lantus Solostar Pen 100 units/mL 3 mL Pen 30 unit(s), Subcutaneous, qHS lisinopril 10 mg, Oral, qDay losartan 50 mg oral tablet 50 mg = 1 tab(s), Oral, qDay metoprolol succinate 100 mg oral TABLET extended release 100 mg = 1 tab(s), Oral, BID Pen needles See Instructions Allergies: penicillin (vomiting) Latex morphine (Nausea and vomiting) Review of systems: See HPI for pertinent positives and negatives. All other review of systems have been reviewed and they are negative. Vitals Signs(Last 24 hrs)__Last Charted Minimum Maximum Temp37.2(MAY 10 02:52)36.7(MAY 09 23:13)37.2(MAY 10 02:52) Heart Rate99(MAY 10 02:52)99(MAY 10 02:52)99(MAY 10 02:52) RZS323(MAY 10 02:52)129(MAY 10 02:52)H 175(MAY 09 18:44) DBPH 93(MAY 10 02:52)H 92(MAY 10 02:07)C 101(MAY 09 18:44) Physical examination: HEENT: No Pallor, No Icterus Cardiac: RRR, 2/6 systolic ejection murmur, elevated JVD Lungs: CTA, good air entry Abdomen: Soft Non tender Musculoskeletal: No joint pains or swelling Extremities: 3+ bilateral lower extremity edema, good pulses Neurological: Alert, no deficits Skin: No rash, no nodules Labs: WBC: 7.1 10^3/mcL (05/09/24 20:30:00) RBC: 3.48 10^6/mcL Low (05/09/24:30:00) Hgb: 6.7 G/dL Critical (05/09/24 20:30:00) Hct: 23.1 % Low (05/09/24 20:30:00) MCV: 66.3 fL Low (05/09/24:30:00) MCH: 19.1 pg Low (05/09/24:30:00) MCHC: 28.9 G/dL Low (05/09/24:30:00) RDW: 22.5 % High (05/09/24::) Platelet: 371 10^3/mcL (05/09/24 20:30:) MPV: 8.4 fL (05/09/24:30:00) Monocyte Distribution Width: 22.25 High (05/09/24::) Neutrophil %: 78.3 % High (05/09/24 20:30:00) Lymphocyte %: 11.4 % Low (05/09/24 20:30:00) Monocyte %: 7.3 % (05/09/24 20:30:00) Eosinophil %: 1.6 % (05/09/24:30:) Basophil %: 1.4 % (05/09/24 20:30:00) Neutrophil, Absolute: 5.5 10^3/mcL (05/09/24:30:00) Lymphocyte, Absolute: 0.8 10^3/mcL Low (05/09/24:30:00) Monocyte, Absolute: 0.5 10^3/mcL (05/09/24 20:30:00) Eosinophil, Absolute: 0.1 10^3/mcL (05/09/24:30:00) Basophil, Absolute: 0.1 10^3/mcL (05/09/24:30:00) Platelet Estimate: Adequate (05/09/24:30:00) Anisocytosis: 2+ (05/09/24 20:30:00) Poik: 2+ (05/09/24:30:00) Polychrom: 1+ (05/09/24:30:00) Microcytosis: 2+ (05/09/24:30:00) Tear Cell: 1+ (05/09/24::00) Ovalocytes: 1+ (05/09/24::) Echinocytes: 1+ (05/09/24::) Glucose Level: 528 mg/dL Critical (05/09/24:) Sodium Level: 133 mmol/L Low (05/09/24::) Potassium Level: 4.9 mmol/L (05/09/24::) Chloride: 101 mmol/L (05/09/24:) CO2: 26 mmol/L (05/09/24:) Electrolyte Balance: 6 mEq/L (05/09/24:) BUN: 12 mg/dL (05/09/24::) Creatinine Lvl (s): 1.01 mg/dL (05/09/24:) BUN/Creatinine Ratio: 12 ratio (05/09/24::) Calcium Lvl: 8.9 mg/dL (05/09/24::) Total Protein: 6.4 G/dL (05/09/24::) Albumin Level: 2.3 G/dL Low (05/09/24::) Globulin: 4.1 G/dL (05/09/24::) A/G Ratio: 0.6 ratio Low (05/09/24::) Bili Total: 0.3 mg/dL (05/09/24::) Alk Phos: 127 U/L (05/09/24::) AST/SGOT: 76 U/L High (05/09/24:30:) ALT/SGPT: 85 U/L High (05/09/24:30:00) GFR Non-: 58 ml/min/1.73sqm (05/09/24::) GFR : 70 ml/min/1.73sqm (05/09/24 20:30:00) N-Terminal proBNP: 35928 pg/mL High (05/09/24 20:30:00) High Sensitivity Troponin I: 33 ng/L (05/09/24 20:30:00) SARS-CoV-2 PCR: Cepheid Neg (05/09/24 20:30:00) FLU A PCR: Cepheid Neg (05/09/24 20:30:00) FLU B PCR: Cepheid Neg (05/09/24 20:30:00) RSV PCR: Cepheid Neg (05/09/24 20:30:00) Blood Glucose, Capillary: 269 mg/dL High (05/10/24 03:31:00) Blood Glucose, Capillary: 370 mg/dL High (05/09/24 23:12:00) No qualifying data available. Assessment and plan: Patient presents from [place] emergency room on May 10, 2024 due to having anemia as well as heart failure. Patient was recently discharged from [facility]. Patient declined transfer to [place] and requested to be admitted here. Acute diastolic heart failure exacerbation. Patient will require a two midnight stay for ongoing workup and treatment of acute newly diagnosed heart failure exacerbation. Patient does have coronary artery disease as well as diabetes mellitus type II with hyperglycemia and anemia. Will start the patient on IV Lasix. In the acute setting will be on step down with monitor. Monitor renal function andelectrolytes closely while on IV diuretics. Will get an echocardiogram. Patient would not be able to be treated outpatient due to the severity of her heart failure. She does have 3+ bilateral lower extremity edema and elevated JVD and has severe shortness of breath. Bilateral lower extremity edema most likely secondary to heart failure exacerbation. Did have a recent prolonged hospital stay and therefore will get a Doppler ultrasound to rule out DVT. Acute blood loss anemia. Hemoglobin is 6.7 and in October 2023 was 11.3. Her hemoglobin recently at [facility] was five. They did do an upper endoscopy and colonoscopy which did not show any concerning finding. Will check iron studies, B12, folate. Patient cannot have blood transfusions as she is a Jehovah witness. Diabetes mellitus type II poorly controlled with hyperglycemia. Continue home medications. Sliding scale insulin. Hemoglobin A1c in October of last year was 16.1. Hyponatremia secondary to hyperglycemia. Mildly elevated LFTs. Will check LFTs and lipase level. Coronary artery disease status post multiple stents. Will get an echocardiogram. Continue home medications Prophylaxis SCD due to anemia Code status full code Digitally Signed by GEORGIANA ODEN MD on 05/10/2024 04:01 AM [facility] [id number] Evaluation + Plan noteExtracted from: Title:Clinical Document Author:GEORGIANA ODEN MD Date:05/10/24 [facility] Hospitalist History and Physical Date of Admission: patient is being admitted on May 10, 2024 Chief complaint: shortness of breath History of present illness: History is taken from talking with emergency room physician and [place] as well as talking with the patient. Patient has a past medical history of diabetes mellitus type II, diabetic ketoacidosis, coronary artery disease status post multiple stents, hypertension, hyperlipidemia. Patient was last discharged from here in October 2023 and during that admission the patient was here for diabetic ketoacidosis. Of note the patient was recently admitted for around a week at [facility] and was discharged from there two days ago. During that admission the patient was there for anemia and was found to have a hemoglobin of five. Patient was found to have iron deficiency anemia and was given multiple iron infusions. She was evaluated by gastroenterology and they did do an upper endoscopy as well as colonoscopy which did not show any concerning finding. Of note during her recent hospital stay she was not given blood transfusions as she is a Jehovah witness. Patient denies having had any nausea or vomiting. Denies melena or hematochezia or hematuria. Patient went to [facility] in emergency room due to having ongoing severe bilateral lower extremity edema and shortness of breath. She denies a cough. Denies chest pain. Per the patient she has no prior history of heart failure. Since presenting to the emergency room the patient has been afebrile, overall hemodynamically stable, 98% room air. The following labs and imaging were personally reviewed WBC 7.1 hemoglobin 6.7 and in October of last year was 11.3 glucose 528 sodium 133 otherwise no concerning finding on BMP alkaline phosphatase 127 AST 76 ALT 85 Pro BNP 13,240 high-sensitivity troponin 33 negative for COVID-19/flu/RSV chest x-ray showed lower lung field opacities of unclear etiology EKG personally reviewed and interpreted showed sinus tachycardia with a heart rate of 104 Prior to transfer the patient was given 20 mg IV Lasix and eight units of insulin. Past medical history: Diabetes Hypertension Family history: hypertension Social history: Denies smoking cigarettes or alcohol consumption Medications: Home Medications (15) Active acetaminophen 650 mg, PRN, Oral, q6hr Alcohol Swabs See Instructions atorvastatin 40 mg oral tablet 40 mg = 1 tab(s), Oral, qDay Blood Glucose Test Machine See Instructions Blood Glucose Test Strips See Instructions Brilinta (ticagrelor) 90 mg oral tablet 90 mg = 1 tab(s), Oral, BID ferrous sulfate 325 mg, Oral, TID folic acid 1 mg oral tablet 1 mg = 1 tab(s), Oral, qDay Insulin Lispro KwikPen 100 units/mL injectable solution 6 unit(s) = 0.06 mL, Subcutaneous, TIDAC Lancets See Instructions Lantus Solostar Pen 100 units/mL 3 mL Pen 30 unit(s), Subcutaneous, qHS lisinopril 10 mg, Oral, qDay losartan 50 mg oral tablet 50 mg = 1 tab(s), Oral, qDay metoprolol succinate 100 mg oral TABLET extended release 100 mg = 1 tab(s), Oral, BID Pen needles See Instructions Allergies: penicillin (vomiting) Latex morphine (Nausea and vomiting) Review of systems: See HPI for pertinent positives and negatives. All other review of systems have been reviewed and they are negative. Vitals Signs(Last 24 hrs)__Last Charted Minimum Maximum Temp37.2(MAY 10 02:52)36.7(MAY 09 23:13)37.2(MAY 10 02:52) Heart Rate99(MAY 10 02:52)99(MAY 10 02:52)99(MAY 10 02:52) NBR470(MAY 10 02:52)129(MAY 10 02:52)H 175(MAY 09 18:44) DBPH 93(MAY 10 02:52)H 92(MAY 10 02:07)C 101(MAY 09 18:44) Physical examination: HEENT: No Pallor, No Icterus Cardiac: RRR, 2/6 systolic ejection murmur, elevated JVD Lungs: CTA, good air entry Abdomen: Soft Non tender Musculoskeletal: No joint pains or swelling Extremities: 3+ bilateral lower extremity edema, good pulses Neurological: Alert, no deficits Skin: No rash, no nodules Labs: WBC: 7.1 10^3/mcL (05/09/24 20:30:00) RBC: 3.48 10^6/mcL Low (05/09/24 20:30:00) Hgb: 6.7 G/dL Critical (05/09/24 20:30:00) Hct: 23.1 % Low (05/09/24 20:30:00) MCV: 66.3 fL Low (05/09/24 20:30:00) MCH: 19.1 pg Low (05/09/24 20:30:00) MCHC: 28.9 G/dL Low (05/09/24:30:00) RDW: 22.5 % High (05/09/24 20:30:00) Platelet: 371 10^3/mcL (05/09/24 20:30:00) MPV: 8.4 fL (05/09/24:30:00) Monocyte Distribution Width: 22.25 High (05/09/24 20:30:00) Neutrophil %: 78.3 % High (05/09/24 20:30:00) Lymphocyte %: 11.4 % Low (05/09/24 20:30:00) Monocyte %: 7.3 % (05/09/24 20:30:00) Eosinophil %: 1.6 % (05/09/24 20:30:00) Basophil %: 1.4 % (05/09/24:30:00) Neutrophil, Absolute: 5.5 10^3/mcL (05/09/24 20:30:00) Lymphocyte, Absolute: 0.8 10^3/mcL Low (05/09/24 20:30:00) Monocyte, Absolute: 0.5 10^3/mcL (05/09/24 20:30:00) Eosinophil, Absolute: 0.1 10^3/mcL (05/09/24:30:00) Basophil, Absolute: 0.1 10^3/mcL (05/09/24 20:30:00) Platelet Estimate: Adequate (05/09/24:30:00) Anisocytosis: 2+ (05/09/24 20:30:00) Poik: 2+ (05/09/24 20:30:00) Polychrom: 1+ (05/09/24:30:00) Microcytosis: 2+ (05/09/24::00) Tear Cell: 1+ (05/09/24 20:30:00) Ovalocytes: 1+ (05/09/24:30:00) Echinocytes: 1+ (05/09/24:30:00) Glucose Level: 528 mg/dL Critical (05/09/24:30:00) Sodium Level: 133 mmol/L Low (05/09/24:30:00) Potassium Level: 4.9 mmol/L (05/09/24::00) Chloride: 101 mmol/L (05/09/24::) CO2: 26 mmol/L (05/09/24::) Electrolyte Balance: 6 mEq/L (05/09/24::) BUN: 12 mg/dL (05/09/24::) Creatinine Lvl (s): 1.01 mg/dL (05/09/24::) BUN/Creatinine Ratio: 12 ratio (05/09/24::) Calcium Lvl: 8.9 mg/dL (05/09/24::) Total Protein: 6.4 G/dL (05/09/24::) Albumin Level: 2.3 G/dL Low (05/09/24::00) Globulin: 4.1 G/dL (05/09/24::) A/G Ratio: 0.6 ratio Low (05/09/24::00) Bili Total: 0.3 mg/dL (05/09/24::00) Alk Phos: 127 U/L (05/09/24::00) AST/SGOT: 76 U/L High (05/09/24 20:30:00) ALT/SGPT: 85 U/L High (05/09/24 20:30:00) GFR Non-: 58 ml/min/1.73sqm (01/23/25 20:30:00) GFR : 70 ml/min/1.73sqm (05/09/24 20:30:00) N-Terminal proBNP: 16868 pg/mL High (05/09/24 20:30:00) High Sensitivity Troponin I: 33 ng/L (05/09/24 20:30:00) SARS-CoV-2 PCR: Cepheid Neg (05/09/24 20:30:00) FLU A PCR: Cepheid Neg (05/09/24 20:30:00) FLU B PCR: Cepheid Neg (05/09/24 20:30:00) RSV PCR: Cepheid Neg (05/09/24 20:30:00) Blood Glucose, Capillary: 269 mg/dL High (05/10/24 03:31:00) Blood Glucose, Capillary: 370 mg/dL High (05/09/24 23:12:00) No qualifying data available. Assessment and plan: Patient presents from [place] emergency room on May 10, 2024 due to having anemia as well as heart failure. Patient was recently discharged from [facility]. Patient declined transfer to [place] and requested to be admitted here. Acute diastolic heart failure exacerbation. Patient will require a two midnight stay for ongoing workup and treatment of acute newly diagnosed heart failure exacerbation. Patient does have coronary artery disease as well as diabetes mellitus type II with hyperglycemia and anemia. Will start the patient on IV Lasix. In the acute setting will be on step down with monitor. Monitor renal function and electrolytes closely while on IV diuretics. Will get an echocardiogram. Patient would not be able to be treated outpatient due to the severity of her heart failure. She does have 3+ bilateral lower extremity edema and elevated JVD and has severe shortness of breath. Bilateral lower extremity edema most likely secondary to heart failure exacerbation. Did have a recent prolonged hospital stay and therefore will get a Doppler ultrasound to rule out DVT. Acute blood loss anemia. Hemoglobin is 6.7 and in October 2023 was 11.3. Her hemoglobin recently at [facility] was five. They did do an upper endoscopy and colonoscopy which did not show any concerning finding. Will check iron studies, B12, folate. Patient cannot have blood transfusions as she is a Jehovah witness. Diabetes mellitus type II poorly controlled with hyperglycemia. Continue home medications. Sliding scale insulin. Hemoglobin A1c in October of last year was 16.1. Hyponatremia secondary to hyperglycemia. Mildly elevated LFTs. Will check LFTs and lipase level. Coronary artery disease status post multiple stents. Will get an echocardiogram. Continue home medications Prophylaxis SCD due to anemia Code status full code Addendum by ABRAHAN LUNDBERG on May 10, 2024 14:41 EST Patient presents with symptoms consisten t with heart failure. Anemia with his hemoglobin of 6.1 currently. With iron deficiency. Anabaptism, okay with IV iron. Will consult hematology for further input, recommendations and possibly consideration of EPO. No evidence of overt GI bleeding, did have an upper endoscopy as well as a colonoscopy by GI at [place] and apparently did not find any concerns or active blood loss. Continue with current diuretic therapy, replete electrolytes to maintain a potassium of 4, magnesium of 2. Currently 1.7 magnesium, will give 4 g. Repeat BMP in the morning. Patient takes Lantus at home, continue with 30 units, along with sliding scale insulin. Appreciate input from cardiology regarding ongoing care. Echocardiogram is pending. Likely high-output heart failure. TSH within normal limits. Monitor H&H closely. Resume home medications as deemed appropriate. Telemetry with sinus rhythm. Continue with stepdown care with monitor. Patient is on Brilinta, will start the patient on PPI 40 mg daily. Discussed with cardiology regarding Brilinta, will likely transition to Plavix. Await echocardiogram. Strict I's and O's, daily weights, low-sodium diet. Discussed above with the patient Diagnostic Tests Pending * Stool for Occult Blood (Lab) 05/10/24 * Hemoglobin Electrophoresis - Panel 05/10/24 [facility] 01-24-2025 Hematology Consult note Date of Service 05/10/2024 Reason for Consultation Anemia History of Present Illness This is a 54-year-old female with a past medical history significant for diabetes mellitus type II,diabetic ketoacidosis, coronary artery disease status post multiple stents, hypertension, and hyperlipidemia. She presented to the emergency room for further evaluation of her shortness of breath andlower extremity edema. The patient was recently admitted for around a week at [facility] and was discharged from there two days ago. During that admission the patient was there for anemia and was found to have a hemoglobin of five. Patient was found to have iron deficiency anemia and was given multiple iron infusions. She was evaluated by gastroenterology and they did do an upper endoscopy as well as colonoscopy w hich did not show any concerning finding. I met with Mariella this morning, she was sitting comfortably at the side of the bed. She states that her shortness of breath has improved but also that it worsens at night or out in the cold. She has developed a new onset of a dry nonproductive cough. Severe swelling in her bilateral lower extremities has improved, she received some diuretics that she states has helped with this. The patient deniesany outward signs of bleeding including stool, urine, nosebleeds, or gum bleeds. The patient deniesfeeling extremely weak or fatigued lately. Denies lightheaded and dizziness. The patient denies chest pain. She reports she does not have a history of illicit drug use, tobacco or alcohol abuse. Of note the patient is a Anabaptism. Review of Systems Review of systems in negative unless noted in the above HPI. Physical Exam Vitals and Measurements T: 37.0 C (Oral) TMIN: 36.7 C (Oral) TMAX: 37.2 C (Oral) HR: 101 (Monitored) RR: 18 BP: 121/83 SpO2: 97% HT: 170.2 cm WT: 80.8 kg BMI: 27.89 General: No apparent distress. Neurological: Alert and oriented x3. Grossly intact without focal deficit. Cardiovascular: S1 and S2 noted. No extra-audible heart tones. Respiratory: Bilaterally clear breath sounds with no crepitation or wheeze. Abdominal: Soft, nontender and nondistended. No guarding. Bowel sounds present. Extremities: +2 edema noted in bilateral lower extremities. Adequate peripheral circulation. Skin: warm and dry Psychological: appropriate mood and affect Weight Dosing Weight: 80.8 kg (05/10/24) Dosing Weight: 80.8 kg (05/09/24) Lab Results 05/10 06:11 WBC: 5.5 Hgb: 6.1 C Hct: 19.9 L Platelet: 333 Neutrophil %: 65.7 Protime: 11.8 PT International Ratio: 1.0 Glucose Level: 223 H Sodium Level: 135 L Potassium Level: 4.2 BUN: 11.0 Creatinine Lvl (s): 0.70 05/09 20:30 WBC: 7.1 Hgb: 6.7 C Hct: 23.1 L Platelet: 371 Neutrophil %: 78.3 H Glucose Level: 528 C Sodium Level: 133 L Potassium Level: 4.9 BUN: 12 Creatinine Lvl (s): 1.01 Assessment/Plan Anemia This is a 54-year-old female with a past medical history significant for diabetes mellitus type II,diabetic ketoacidosis, coronary artery disease status post multiple stents, hypertension, and hyperlipidemia. She presented to the emergency room for further evaluation of her shortness of breath andlower extremity edema. The patient was recently admitted for around a week at [facility] and was discharged from there two days ago. During that admission the patient was there for anemia and was found to have a hemoglobin of five. Patient was found to have iron deficiency anemia and was given multiple iron infusions. She was evaluated by gastroenterology and they did do an upper endoscopy as well as colonoscopy w hich did not show any concerning finding. CBC 05/10/24 06:11 05/09/24 20:30 11/11/23 09:13 Hct 19.9 % L 23.1 % L 34.2 % Hgb 6.1 G/dL C 6.7 G/dL C 11.3 G/dL L MCH 20.1 pg L 19.1 pg L 28.2 pg MCHC 30.6 G/dL L 28.9 G/dL L 33.1 G/dL MCV 65.5 fL L 66.3 fL L 85.3 fL MPV 8.2 fL 8.4 fL 8.2 fL Platelet 333 10^3/mcL 371 10^3/mcL 420 10^3/mcL RBC 3.04 10^6/mcL L 3.48 10^6/mcL L 4.01 10^6/mcL L RDW 22.1 % H 22.5 % H 13.4 % WBC 5.5 10^3/mcL 7.1 10^3/mcL 11.9 10^3/mcL H The primary team has ordered 3 days of IV iron. Hematology plan: This is a complicated case due to the patient being a Anabaptism. She does run an increased risk of complications due to the inability to offer her blood transfusions. The patient is currentlyon Brilinta we will order a occult stool to evaluate for the possibility of a slow GI bleed. We agree with the primary team ordering 3 days of IV iron. A peripheral smear will be sent to Dr. Davila at the cancer center for further evaluation. The assessment and plan were discussed with Dr. Davila. Please see addendum for further hematology/oncology input and plan of care. Procedure/Surgical History No qualifying data available. Medications acetaminophen, 650 mg, Oral, q6hr, PRN Alcohol Swabs, See Instructions atorvastatin 40 mg oral tablet, 40 mg= 1 tab(s), Oral, qDay, Not taking Blood Glucose Test Machine, See Instructions Blood Glucose Test Strips, See Instructions Brilinta (ticagrelor), 90 mg= 1 tab(s), Oral, BID Brilinta (ticagrelor) 90 mg oral tablet, 90 mg= 1 tab(s), Oral, BID Dextrose 50% IV Push, 12.5 gram(s)= 25 mL, IV Push, AsDirected, PRN DuoNeb, 3 mL, Inhalation, q4hRT, PRN Ferrlecit ferrous sulfate, 325 mg, Oral, TID folic acid 1 mg oral tablet, 1 mg= 1 tab(s), Oral, qDay, Not taking guaiFENesin, 200 mg= 10 mL, Oral, q4h, PRN HumaLOG 100 units/mL subcutaneous solution, Give 0-15 units/dose, Subcutaneous, TIDAC insulin lispro (HumaLOG), 6 unit(s)= 0.06 mL, Subcutaneous, TIDAC Insulin Lispro KwikPen 100 units/mL injectable solution, 6 unit(s)= 0.06 mL, Subcutaneous, TIDAC KCL, 40 mEq= 2 tab(s), Oral, qDayM Lancets, See Instructions Lantus, 30 unit(s)= 0.3 mL, Subcutaneous (INT), qHS Lantus Solostar Pen 100 units/mL 3 mL Pen, 30 unit(s), Subcutaneous, qHS Lasix, 40 mg= 4 mL, IV Push, BID lisinopril, 10 mg, Oral, qDay lisinopril, 10 mg= 1 tab(s), Oral, qDay losartan 50 mg oral tablet, 50 mg= 1 tab(s), Oral, qDay, Not taking melatonin, 3 mg= 1 tab(s), Oral, qHS, PRN metoprolol succinate 100 mg oral TABLET extended release, 100 mg= 1 tab(s), Oral, BID, Not taking Miralax Powder Packet, 17 gram(s)= 15 mL, Oral, qDay, PRN Pen needles, See Instructions Tylenol, 650 mg= 2 tab(s), Oral, q4h, PRN Tylenol, 650 mg= 2 tab(s), Oral, q4h, PRN Zofran, 4 mg= 2 mL, IV Push, q4h, PRN Allergies penicillin (Mild) vomiting Latex morphine Nausea and vomiting Social History Alcohol Use: Never., 11/09/2023 Substance Abuse Use: Never., 11/09/2023 Tobacco Nicotine Use: Never (less than 100 in lifetime)., 11/09/2023 Digitally Signed by ABIOLA BOSCH on 05/10/2024 12:34 PM [id number] History and physical note [facility] Hospitalist History and Physical Date of Admission: patient is being admitted on May 10, 2024 Chief complaint: shortness of breath History of present illness: History is taken from talking with emergency room physician and [place] as well as talking with the patient. Patient has a past medical history of diabetes mellitus type II, diabetic ketoacidosis, coronary artery disease status post multiple stents, hypertension, hyperlipidemia. Patient was last discharged from here in October 2023 and during that admission the patient was here for diabetic ketoacidosis. Of note the patient was recently admitted for around a week at [facility] and was discharged from there two days ago. During that admission the patient was there for anemia and was found to have a hemoglobin of five. Patient was found to have iron deficiency anemia and was given multiple ironinfusions. She was evaluated by gastroenterology and they did do an upper endoscopy as well as colonoscopy which did not show any concerning finding. Of note during her recent hospital stay she was not given blood transfusions as she is a Jehovah witness. Patient denies having had any nausea or vomiting. Denies melena or hematochezia or hematuria. Patient went to [facility] in emergency room due to having ongoing severe bilateral lower extremity edemaand shortness of breath. She denies a cough. Denies chest pain. Per the patient she has no prior history of heart failure. Since presenting to the emergency room the patient has been afebrile, overall hemodynamically stable, 98% room air. The following labs and imaging were personally reviewed WBC 7.1 hemoglobin 6.7 and in October of last year was 11.3 glucose 528 sodium 133 otherwise no concerning finding on BMP alkaline phosphatase 127 AST 76 ALT 85 Pro BNP 13,240 high-sensitivity troponin 33 negative for COVID-19/flu/RSV chest x-ray showed lower lung field opacities of unclear etiology EKG personally reviewed and interpreted showed sinus tachycardia with a heart rate of 104 Prior to transfer the patient was given 20 mg IV Lasix and eight units of insulin. Past medical history: Diabetes Hypertension Family history: hypertension Social history: Denies smoking cigarettes or alcohol consumption Medications: Home Medications (15) Active acetaminophen 650 mg, PRN, Oral, q6hr Alcohol Swabs See Instructions atorvastatin 40 mg oral tablet 40 mg = 1 tab(s), Oral, qDay Blood Glucose Test Machine See Instructions Blood Glucose Test Strips See Instructions Brilinta (ticagrelor) 90 mg oral tablet 90 mg = 1 tab(s), Oral, BID ferrous sulfate 325 mg, Oral, TID folic acid 1 mg oral tablet 1 mg = 1 tab(s), Oral, qDay Insulin Lispro KwikPen 100 units/mL injectable solution 6 unit(s) = 0.06 mL, Subcutaneous, TIDAC Lancets See Instructions Lantus Solostar Pen 100 units/mL 3 mL Pen 30 unit(s), Subcutaneous, qHS lisinopril 10 mg, Oral, qDay losartan 50 mg oral tablet 50 mg = 1 tab(s), Oral, qDay metoprolol succinate 100 mg oral TABLET extended release 100 mg = 1 tab(s), Oral, BID Pen needles See Instructions Allergies: penicillin (vomiting) Latex morphine (Nausea and vomiting) Review of systems: See HPI for pertinent positives and negatives. All other review of systems have been reviewed and they are negative. Vitals Signs(Last 24 hrs)__Last Charted Minimum Maximum Temp37.2(MAY 10 02:52)36.7(MAY 09 23:13)37.2(MAY 10 02:52) Heart Rate99(MAY 10 02:52)99(MAY 10 02:52)99(MAY 10 02:52) PJF552(MAY 10 02:52)129(MAY 10 02:52)H 175(MAY 09 18:44) DBPH 93(MAY 10 02:52)H 92(MAY 10 02:07)C 101(MAY 09 18:44) Physical examination: HEENT: No Pallor, No Icterus Cardiac: RRR, 2/6 systolic ejection murmur, elevated JVD Lungs: CTA, good air entry Abdomen: Soft Non tender Musculoskeletal: No joint pains or swelling Extremities: 3+ bilateral lower extremity edema, good pulses Neurological: Alert, no deficits Skin: No rash, no nodules Labs: WBC: 7.1 10^3/mcL (05/09/24 20:30:00) RBC: 3.48 10^6/mcL Low (05/09/24 20:30:00) Hgb: 6.7 G/dL Critical (05/09/24 20:30:00) Hct: 23.1 % Low (05/09/24 20:30:00) MCV: 66.3 fL Low (05/09/24 20:30:00) MCH: 19.1 pg Low (05/09/24 20:30:00) MCHC: 28.9 G/dL Low (05/09/24 20:30:00) RDW: 22.5 % High (05/09/24 20:30:00) Platelet: 371 10^3/mcL (05/09/24 20:30:00) MPV: 8.4 fL (05/09/24 20:30:00) Monocyte Distribution Width: 22.25 High (05/09/24 20:30:00) Neutrophil %: 78.3 % High (05/09/24 20:30:00) Lymphocyte %: 11.4 % Low (05/09/24 20:30:00) Monocyte %: 7.3 % (05/09/24 20:30:00) Eosinophil %: 1.6 % (05/09/24 20:30:00) Basophil %: 1.4 % (05/09/24 20:30:00) Neutrophil, Absolute: 5.5 10^3/mcL (05/09/24 20:30:00) Lymphocyte, Absolute: 0.8 10^3/mcL Low (05/09/24 20:30:00) Monocyte, Absolute: 0.5 10^3/mcL (05/09/24:30:00) Eosinophil, Absolute: 0.1 10^3/mcL (05/09/24::00) Basophil, Absolute: 0.1 10^3/mcL (05/09/24:30:) Platelet Estimate: Adequate (05/09/24::) Anisocytosis: 2+ (05/09/24::00) Poik: 2+ (05/09/24::00) Polychrom: 1+ (05/09/24::) Microcytosis: 2+ (05/09/24::) Tear Cell: 1+ (05/09/24) Ovalocytes: 1+ (05/09/24) Echinocytes: 1+ (05/09/24::) Glucose Level: 528 mg/dL Critical (05/09/24:) Sodium Level: 133 mmol/L Low (05/09/24) Potassium Level: 4.9 mmol/L (05/09/24::) Chloride: 101 mmol/L (05/09/24::) CO2: 26 mmol/L (05/09/24:) Electrolyte Balance: 6 mEq/L (05/09/24::) BUN: 12 mg/dL (05/09/24::) Creatinine Lvl (s): 1.01 mg/dL (05/09/24::) BUN/Creatinine Ratio: 12 ratio (05/09/24::) Calcium Lvl: 8.9 mg/dL (05/09/24::) Total Protein: 6.4 G/dL (05/09/24:) Albumin Level: 2.3 G/dL Low (05/09/24:) Globulin: 4.1 G/dL (05/09/24::) A/G Ratio: 0.6 ratio Low (05/09/24:) Bili Total: 0.3 mg/dL (05/09/24 20:30:00) Alk Phos: 127 U/L (05/09/24 20:30:00) AST/SGOT: 76 U/L High (05/09/24 20:30:00) ALT/SGPT: 85 U/L High (05/09/24 20:30:00) GFR Non-: 58 ml/min/1.73sqm (05/09/24 20:30:00) GFR : 70 ml/min/1.73sqm (05/09/24 20:30:00) N-Terminal proBNP: 85966 pg/mL High (05/09/24 20:30:00) High Sensitivity Troponin I: 33 ng/L (05/09/24 20:30:00) SARS-CoV-2 PCR: Cepheid Neg (05/09/24 20:30:00) FLU A PCR: Cepheid Neg (05/09/24 20:30:00) FLU B PCR: Cepheid Neg (05/09/24 20:30:00) RSV PCR: Cepheid Neg (05/09/24 20:30:00) Blood Glucose, Capillary: 269 mg/dL High (05/10/24 03:31:00) Blood Glucose, Capillary: 370 mg/dL High (05/09/24 23:12:00) No qualifying data available. Assessment and plan: Patient presents from [place] emergency room on May 10, 2024 due to having anemia as well as heart failure. Patient was recently discharged from [facility]. Patient declined transfer to [facility] and requested to be admitted here. Acute diastolic heart failure exacerbation. Patient will require a two midnight stay for ongoing workup and treatment of acute newly diagnosed heart failure exacerbation. Patient does have coronary artery disease as well as diabetes mellitus type II with hyperglycemia and anemia. Will start the patient on IV Lasix. In the acute setting will be on step down with monitor. Monitor renal function andelectrolytes closely while on IV diuretics. Will get an echocardiogram. Patient would not be able to be treated outpatient due to the severity of her heart failure. She does have 3+ bilateral lower extremity edema and elevated JVD and has severe shortness of breath. Bilateral lower extremity edema most likely secondary to heart failure exacerbation. Did have a recent prolonged hospital stay and therefore will get a Doppler ultrasound to rule out DVT. Acute blood loss anemia. Hemoglobin is 6.7 and in October 2023 was 11.3. Her hemoglobin recently at [facility] was five. They did do an upper endoscopy and colonoscopy which did not show any concerning finding. Will check iron studies, B12, folate. Patient cannot have blood transfusions as she is a Jehovah witness. Diabetes mellitus type II poorly controlled with hyperglycemia. Continue home medications. Sliding scale insulin. Hemoglobin A1c in October of last year was 16.1. Hyponatremia secondary to hyperglycemia. Mildly elevated LFTs. Will check LFTs and lipase level. Coronary artery disease status post multiple stents. Will get an echocardiogram. Continue home medications Prophylaxis SCD due to anemia Code status full code Digitally Signed by GEORGIANA ODEN MD on 05/10/2024 04:01 AM [facility] [id number] Note* Exam Date Time Procedure Performing Provider Status 05/09/24 8:48 PM XR Chest 2 Views POLO ESTRADA MD; Auth (Verified) [id number] ORIGINAL EXAMINATION: TWO XRAY VIEWS OF THE CHEST 05/09/2024 8:49 pm COMPARISON: 11/09/2023 HISTORY: ORDERING SYSTEM PROVIDED HISTORY: Reason for Exam: SOB FINDINGS: Stable cardiomediastinal silhouette. Atherosclerotic aorta. Coronary stent. Low lung volumes with perihilar and bibasilar opacities and mild interstitial prominence. No large pleural effusion or visible pneumothorax. No acute osseous abnormality. IMPRESSION: Low lung volumes with perihilar and lower lung field opacities concerning for pneumonia or other infiltrates. Correlate clinically and follow-up to resolution. Interpreted by: Polo Estrada Preliminary Report By: Stan Zuñiga Electronically signed By Polo Estrada Dictated Date: 05/09/2024 8:53:28 PM Prelim Date: 05/09/2024 8:55:02 PM Sign Date: 05/09/2024 8:55:56 PM Ordering Provider: KATHY TORRES [facility] [id number] Note* Exam Date Time Procedure Performing Provider Status 05/09/24 8:38 PM EKG (ED) - CV ABBE GONZALEZ MD; Auth (Verified) ECG Final Report Sinus tachycardia Consider anterior infarct Nonspecific T abnormalities, lateral leads Electronic Signature: ABBE GONZALEZ MD 05/09/2024 21:10:24 [facility] [id number] [facility] Medical Records Department [address] [place] [address] Discharge Summary 05/07/24 1521 MR#: [id number] Acct: [id number] Name: MARIELLA RAMIREZ Rep #: [id number] : 1970 54 From: Taryn Boone MD PCP: Dr. Gerber Pina, Status:ADM IN [place] [facility] [id number] Providers Date of Admission: 05/03/24 Date of Discharge: 05/07/24 Primary Care Physician: Dr. Gerber Pina DO Consultations 05/03/24 16:55 Consult: Gastroenterology Routine Consulting Provider: Rony Milligan Reason for Consult: GI bleed EMERGENT Consult: No MD Notified: Yes Date Notified: 05/03/24 Time Notified: 14:38 Method of Notification: Text Reason For Visit: ACUTE MICROCYTIC ANEMIA Diagnosis Discharge Diagnosis (1) Acute anemia: Status: Acute Code(s): D64.9 - Anemia, unspecified Plan #Severe iron deficiency anemia * Hb toay is slightly up to 6, from 5.8 yesterday. Iron studies show severe iron deficiency anemia * EGD did not show any acute pathology and colonoscopy also showed nonbleeding diverticulosis with no stigmata of bleeding * On iron transfusions. Aspirin and Brilinta on hold. * GI on board. Patient cannot receive blood because history of his weakness. May benefit from capsule endoscopy on outpatient basis. * Has received Epogen during this admission. GI. Also on folate and vitamin B12. Vitamin C added on. * To be set up for outpatient capsule endoscopy per GI. #Hypertension: On lisinopril. IV hydralazine as needed #Elevated creatinine:Cr is 1.06 today, down from 1.19 yesterday. WIll monitor for improvement. Encourage oral hydration. #Hyperlipidemia: On statin #Heart failure with preserved ejection fraction: * Has some lower extremity edema. Has known EF of 70%. * May be due to heart failure also. * #CAD s/p stents: * Aspirin and Brilinta on hold due to severe anemia * Continue high intensity statin. * #Type 2 diabetes mellitus: on ISS. Accuchecks ACHS. On Lantus #DVT prophylaxis; SCDs Disposition: Anticipate DC home when hemoglobin is up to around 7. Medications at Discharge Home Medications acetaminophen 325 mg tablet 650 mg (2 x 325 mg) PO Q6H PRN PRN Pain 1-10 Or Fever >100.7 #0 tabs 09/02/22 pen needle, diabetic 29 gauge x 1/2 #100 ea 09/02/22 lisinopril 10 mg tablet 10 mg PO DAILY #90 tabs 10/11/22 ascorbic acid (vitamin C) 500 mg tablet (Vitamin C) 500 mg PO TID #90 tabs 05/07/24 docusate sodium 100 mg capsule (Colace) 100 mg PO BID #60 caps 05/07/24 ferrous sulfate 325 mg (65 mg iron) tablet,delayed release 325 mg PO TID #90 tabs 05/07/24 pantoprazole 40 mg tablet,delayed release (Protonix) 40 mg PO DAILY #30 tabs 05/07/24 Hospital Course Operations None Procedures Colonoscopy and EGD Summary of Care Provided Minutes Spent on Discharge: 47 Hospital Course: Patient is a 54-year-old female with a past medical history as outlined was admitted through the ED on 05/03/2024 after being referred to the ED by her PCP at the [facility] for abnormal hemoglobin. She had been seen at her primary care physician's office on outpatient basis a week prior to admission and was found to have bilateral lower extremity edema. She had not been compliant with her home meds. Labs were done and she was subsequently called that her hemoglobin was low so she come to the ED. She felt that her lower extremity swelling had improved. On admission hemoglobin was 6.7 and she had thrombocytosis with platelets of 603 thousand. Chemistry was significant for sodium of 130. Iron studies showed severe iron deficiency anemia with total iron of 16, iron saturation of 3.4 and ferritin of 5 as well as elevated TIBC at 474. Liver enzyme was normal. Chest x-ray showed mild cardiomegaly. Patient was Anabaptism and so did not accept blood. Gastroenterology was consulted and she was started on IV pantoprazole and started on IV iron infusion. EGD showed normal esophagus with medium size hiatal hernia and normal duodenum and jejunum. Colonoscopy showed diverticulosis in the rectosigmoid and sigmoid colon with no evidence of bleeding. Patient hemoglobin improved to 6.9 but subsequently dropped to 5.8. She was given IV Epogen. GI also I refused to this. Hemoglobin came up to 6. Patient again was not amenable to receiving transfusion because of her Anabaptism belief. GI recommended capsule endoscopy on outpatient basis. She was to be set up for outpatient IV iron infusions but her insurance would only check in on May 18, 2024. Per GI recommendations she was therefore discharged home on p.o. ferrous sulfate 325 mg 3 times daily as well as p.o. vitamin C 500 mg 3 times daily and p.o. Colace 100 mg twice daily. She is to follow-up with her primary care doctor within 1 to 2 weeks and was also referred to gastroenterology on outpatient basis for monitoring of her h (more content not included)...[facility]01-17-2025 Telephone encounter Note* Telephone Encounter - Jamaica Mireles APRN.TIFFANIE - 05/03/2024 2:34 PM EST Noted. Thank you. I apologize, I meant to call ER to give heads up but the day got ahead of me. Jamaica Mireles APRN.CAT CRACKER OPERATOR [facility]01-17-2025 Miscellaneous Notes* Telephone Encounter - Jamaica Mireles APRN.TIFFANIE - 05/03/2024 2:34 PM EST Noted. Thank you. I apologize, I meant to call ER to give heads up but the day got ahead of me. Jamaica Mireles APRN.TIFFANIE * Telephone Encounter - Lisa Gomez RN - 05/03/2024 2:[address] Perez phoned to let provider know he is admitting patient for her anemia and will be giving patient blood transfusion. States they got the same lab results that [facility] reported. * Telephone Encounter - Jacqui Jama LPN - 05/03/2024 11:36 AM EST Guillermo with [facility] called to see why pt was sent to the ER. Faxed over phone encounter with lab results and supporting information. Pt was identified with name and date of . FAX: [phone] Done. Jacqui Jama LPN documented in this encounterLouis [facility]01-[facility]-2025 Telephone encounter Note * Telephone Encounter - Lisa Gomez RN - 05/03/2024 2:[address] Perez phoned to let provider know he is admitting patient for her anemia and will be giving patient blood transfusion. States they got the same lab results that [facility] reported. [facility]01-17-2025 Telephone encounter Note* Telephone Encounter - Jacqui Jama LPN - 05/03/2024 11:36 AM EST Guillermo with [facility] called to see why pt was sent to the ER. Faxed over phone encounter with lab results and supporting information. Pt was identified with name and date of . FAX: [phone] Done. Jacqui Jama LPN [facility]01-17-2025 Telephone encounter Note* Telephone Encounter - Gi Mae LPN - 05/03/2024 10:44 AM EST Labs were faxed to [facility]. [facility]01-17-2025 Miscellaneous Notes* Telephone Encounter - Gi Mae LPN - 05/03/2024 10:44 AM EST Labs were faxed to [facility]. * Telephone Encounter - Jamaica Mireles APRN.CNP - 05/03/2024 10:07 AM EST Yes, please fax over her result. Thank you, Jamaica Mireles APRN.TIFFANIE * Telephone Encounter - Wendy Ortega LPN - 05/03/2024 9:32 AM EST Patient notified of results, verbalizes understanding of instructions. Pt stated she will go to ER, But will not get blood transfusion. Did you want her lab results to [facility]? * Telephone Encounter - Jamaica Mireles APRN.TIFFANIE - 05/03/2024 9:25 AM EST Please call patient and let her know that she needs to go to ER [facility]. Her lab work results are out of control and I am very concerned. DM is completely uncontrolled with HgA1c at 18 BNP (cardiac function lab) is very high at 8,555 Hgb is at 6.8 --- she will need blood transfusion for this. We need to get this under control and focus on restarting medication regimens. Her current holisticapproach is not working. I am concerned for DKA vs complete kidney failure if this is not correctedsoon. Please have her go to ER today and please schedule long 60 minute hospital follow-up for the end ofnext week. Thank you, Jamaica Mireles APRN.CAT CRACKER OPERATOR documented in this encounterLouis [facility]01-17-2025 Telephone encounter Note * Telephone Encounter - Sindy Burton MA - 05/03/2024 10:40 AM EST Patient notified in different encounter by PCP triad.Will close this TE. [facility]01-17-2025 Miscellaneous Notes* Telephone Encounter - Sindy Burton MA - 05/03/2024 10:40 AM EST Patient notified in different encounter by PCP triad.Will close this TE. * Telephone Encounter - Moriah Vásquez MD - 05/02/2024 6:59 PM EST Got paged about a critical lab, glucose of above 500 tried to reach the patient , 3 times, left voice mail , mail box was unidetified so could not give any details of the reason for call Called daughter number not in use. Called mothers numbers which is listed but it went to someone who said it was a [employer] number. Wanted to call patient and ask clinically how she is doing and suggest increase of lantus for today Regards, Moriah Vásquez MD documented in this encounterLouis [facility]01-17-2025 Telephone encounter Note * Telephone Encounter - Jamaica Mireles APRN.CAT CRACKER OPERATOR - 05/03/2024 10:07 AM EST Yes, please fax over her result. Thank you, Jamaica Mireles APRN.CAT CRACKER OPERATOR [facility]01-17-2025 Telephone encounter Note* Telephone Encounter - Wendy Ortega LPN - 05/03/2024 9:32 AM EST Patient notified of results, verbalizes understanding of instructions. Pt stated she will go to ER, But will not get blood transfusion. Did you want her lab results to [facility]? [facility]01-17-2025 Telephone encounter Note* Telephone Encounter - Jamaica Mireles APRN.TIFFANIE - 05/03/2024 9:25 AM EST Please call patient and let her know that she needs to go to ER [facility]. Her lab work results are out of control and I am very concerned. DM is completely uncontrolled with HgA1c at 18 BNP (cardiac function lab) is very high at 8,555 Hgb is at 6.8 --- she will need blood transfusion for this. We need to get this under control and focus on restarting medication regimens. Her current holisticapproach is not working. I am concerned for DKA vs complete kidney failure if this is not correctedsoon. Please have her go to ER today and please schedule long 60 minute hospital follow-up for the end ofnext week. Thank you, Jamaica Mireles APRN.CAT CRACKER OPERATOR [facility]01-16-2025 Telephone encounter Note* Telephone Encounter - Moriah Vásquez MD - 05/02/2024 6:59 PM EST Got paged about a critical lab, glucose of above 500 tried to reach the patient , 3 times, left voice mail , mail box was unidetified so could not give any details of the reason for call Called daughter number not in use. Called mothers numbers which is listed but it went to someone who said it was a [employer] number. Wanted to call patient and ask clinically how she is doing and suggest increase of lantus for today Regards, oMriah Vásquez MD [facility] Work Phone: [phone] 374-862001-16-2025 History of Present illness Narrative* Jamaica Mireles APRN.TIFFANIE - 05/02/2024 7:40 AM EST Chief Complaint Patient presents with: urgent car f/;up edema in joão legs: Started a couple weeks ago in knees then down HPI Mariella L Ramirez is a 54 year old female who presents here today for Above Complaints. Mariella is an established patient of Dr. Yovani DO. Concerns today.. Express care follow-up --- Express care visit yesterday d/t URI symptoms, SOB, and leg edema. Per note: ASSESSMENT/PLAN: 1. SOB (shortness of breath) - ICD9: 786.05, ICD10: R06.02 (primary diagnosis) 2. Bilateral leg edema - ICD9: 782.3, ICD10: R60.0 - XR CHEST 2V FRONTAL/LAT Lungs and pleura: No consolidation. No lung mass. No pleural effusion. No pneumothorax. Cardiomediastinal silhouette: The cardiac silhouette appears mildly prominent accentuated by magnification related to the AP technique. Coronary artery stents are noted IMPRESSION: No acute radiographic abnormality No pneumonia or pulmonary edema of heart failure. Likely recent viral URI (includes COVID, flu, andRSV which are prevalent in the community). ER evaluation is more appropriate where more diagnostic testing is available to evaluate for ketoacidosis, heart failure, or DVT. She reports significant imp rovement in swelling and lethargy compared to last week; I still advised ER evaluation if symptoms are worsening. 3. Essential hypertension - ICD9: 401.9, ICD10: I10 4. Polyuria - ICD9: 788.42, ICD10: R35.89 5. Type 2 diabetes mellitus with both eyes affected by mild nonproliferative retinopathy without macular edema, with long-term current use of insulin (HCC) - ICD9: 250.50, 362.04, V58.67, ICD10: E11.3293, Z79.4 6. Noncompliance with medication regimen - ICD9: V15.81, ICD10: Z91.148 We reviewed short and long-term risks of uncontrolled medical conditions can lead to disability anddeath. Encouraged to schedule follow up with primary care at discharge. Today in office.... Pt reports SOB and URI symptoms are improved and mostly resolved. Coming here today to evaluate bilateral lower extremity edema. Pt reports bilateral leg swelling x 2 weeks. R slightly worse than L. Reports in the morning they will be normal but as she is on her feet all day at work, they swell andare the worst at night. Pt is elevating feet as much as possible which does help. Wearing tight & high socks at work but does not have compression stocking. Pt reports not taking any of her medications currently d/t trying to use all natural remedies. Feltlike all of her medications were making her feel worse and wants to try to use supplements instead.Reports feeling much better since doing so. Pt reports eating 1 grapefruit daily and taking dailydetox regimen from [place]. Pt is unsure what is in this. Has been using this stuff for a few weeks. BP is elevated. Pt admits to not taking lisinopril or metoprolol. She does not check BP at home. She denies chest pain, shortness of breath, palpitations, dizziness, headaches, or vision changes. Last 14 Encounter BP Readings: Date: BP: 05/02/2024 162/90 05/01/2024 154/90 12/23/2022 138/78 09/16/2022 138/84 08/25/2022 140/78 01/06/2022 120/70 01/05/2022 122/70 09/10/2021 120/82 05/24/2021 136/86 04/30/2021 179/87 02/22/2021 134/78 11/11/2020 120/70 07/17/2020 142/84 10/09/2019 132/82 Past medical history, appointments, medications, allergies reviewed. 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 PAST SURGICAL HISTORY OF 1995 Bilateral removal of breast tissue in axilla PAST SURGICAL HISTORY OF unsure R foot surgery - fusion vs bunionectomy, patient unsure Family History FAMILY HISTORY Problem Relation Age of Onset Cancer Father PROSTATE Alcohol/Drug Father Diabetes Father Hypertension Father Stroke Father Prostate Cancer Father Breast Cancer Maternal Grandmother Diabetes Paternal Uncle Stroke Paternal Uncle Breast Cancer Other MATERNAL COUSINS X2 Hypertension Other NIECE No Ocular Disease No Family History Patient Allergies ALLERGIES Allergen Reactions Steffi Inhibitors Cough Latex Rash Morphine GI Upset Terrible vomitting Current Medications Current Outpatient Medications on File Prior to Visit Medication Sig metoprolol succinate ER (TOPROL XL) 100 mg Take 1 tablet by mouth two times a day. lisinopril (ZESTRIL) 10 mg tablet Take 1 tablet by mouth once daily. ticagrelor (BRILINTA) 90 mg tablet Take by mouth. [facility] atorvastatin (LIPITOR) 40 mg tablet TAKE 1 TABLET BY MOUTH ONCE DAILY AT BEDTIME FOR CHOLESTEROL insulin glargine (LANTUS SOLOSTAR U-100 INSULIN) 100 unit/mL (3 mL) Inject 30 Units subcutaneously daily at bedtime. insulin lispro (HUMALOG KWIKPEN INSULIN) 100 unit/mL 12 units 3 times daily (Patient taking differently: Inject 6 Units subcutaneously three times a day before meals. 12 units 3 times daily) blood sugar diagnostic (BLOOD GLUCOSE TEST) test strip Test blood sugar(s) one times daily. Dx: 250.00. Insulin: No BABY ASPIRIN ORAL Take by mouth. Cholecalciferol, Vitamin D3, (DIALYVITE VITAMIN D) 125 mcg (5,000 unit) cap Take 1 capsule by mouthonce daily. Insulin Hume, Disposable, (BD ULTRA-FINE SONU PEN NEEDLE) 32 gauge x 5/32 ndle 2Use one needle for each dose. 1/day. Lancets lancets Test blood sugar(s) 1 times daily. Dx: DM2. Insulin: No blood sugar diagnostic (RELION PRIME TEST STRIPS) test strip Diabetes mellitus type 2, non insulin dependent, testing 1x/day, Use as instructed ONETOUCH ULTRA TEST test strip USE TO CHECK GLUCOSE ONCE DAILY Blood-Glucose Meter (ONE TOUCH ULTRA 2) monitoring kit 1 Each as needed. One Touch Meter Kit Diagnosis: Diabetes Mellitus ibuprofen 800 mg tablet Take 1 tablet by mouth every 8 hours as needed (FOR PAIN. TAKE WITH FOOD). MULTI-VITAMIN ORAL Take by mouth. No current facility-administered medications on file prior to visit. Social History Social History Tobacco Use Smoking status: Never Smokeless tobacco: Never Substance Use Topics Alcohol use: No Drug use: No REVIEW OF SYSTEMS: as above Reviewed relevant PMHx, PSHx, Social Hx, current medications and allergies. Review of Symptoms REVIEW OF SYSTEMS See HPI. EXAM: BP 162/90 (BP Site: Left Arm, BP Position: Sitting, BP Cuff Size: Regular Adult) Pulse 96 Resp 14 Wt 71.7 kg (158 lb 1.1 oz) LMP 12/30/2021 (Approximate) SpO2 100% BMI 24.81 kg/m General Appearance: Well appearing, alert, in no acute distress, well-hydrated, well nourished.. Skin: Skin color, texture, turgor normal, no suspicious rashes or lesions. Head: Normocephalic, no masses, lesions, tenderness or abnormalities. Lungs: Lungs clear to auscultation. No wheezing, rhonchi, rales.. Heart: RRR without murmur, gallop, or rubs. No ectopy. Extremities: No deformities, edema, skin discoloration, clubbing or cyanosis. Good capillary refill. , Positive findings: bilateral lower extremity 2+ pitting edema. Peripheral Pulses: Normal. Health Maintenance List Depression Screening Never done Anxiety Screening Never done Hepatitis B Vaccine(1 of 3 - 19+ 3-dose series) Never done Dilated Retinal Exam due on 03/29/2019 Mammogram Screening due on 12/12/2020 Shingrix Vaccine(1 of 2) Never done BP Controlled (<130/80) due on 09/10/2022 LDL Cholesterol due on 09/20/2022 HbA1C due on 03/23/2023 Urine Albumin:Creatinine Ratio due on 08/27/2023 Influenza Vaccine(1) due on 12/17/2023 Covid-19 Vaccine(2023- season) due on 12/17/2023 Diabetic Foot Exam due on 12/24/2023 Annual PCP Team Chronic Disease Visit due on 05/02/2025 Colorectal Cancer Screening due on 04/30/2026 Cervical Cancer Screening due on 01/06/2027 DTaP,Tdap,Td Vaccine(7 - Td or Tdap) due on 12/23/2032 Hepatitis C Screening Completed HIV Screening Completed Pneumococcal Vaccine: 50+ Completed ASSESSMENT/PLAN: 1. Bilateral leg edema - ICD9: 782.3, ICD10: R60.0 (primary diagnosis) Needs to restart BP and cardiac medication. Pt willing to restart lisinopril only and follow up in 3/4 weeks to reassess BP and swelling to determine if more medication is needed. No concern for DVT given bilateral nature, although pt is not taking brilinta which puts her at risk. Discussed the dangers of this. EKG in office today. Lab work as below. Discussed importance of following up with tail ripper at [facility] d/t stopping all medications. May consider repeat ECHO at follow up if no improvement. - NT PRO BNP - ECG COMPLETE - LISINOPRIL 10 MG TABLET 2. Essential hypertension - ICD9: 401.9, ICD10: I10 - Uncontrolled - Worsening control - restart lisinopril - Recommend home blood pressure monitoring, to bring results to next visit - Encouraged sodium restriction, DASH or Mediterranean diet - Recommend regular aerobic exercise - Follow up in 4 weeks for hypertension visit - COMPREHENSIVE METABOLIC PANEL - COMPLETE BLOOD COUNT AND DIFFERENTIAL - LISINOPRIL 10 MG TABLET 3. Type 2 diabetes mellitus without complication, with long-term current use of insulin (HCC) - ICD9: 250.00, V58.67, ICD10: E11.9, Z79.4 - Control undetermined, due for labs Likely uncontrolled d/t stopping medications. Should restart prior medication regimen but patient declines. Pt wants to treat chronic conditions with natural remedies instead. - COMPREHENSIVE METABOLIC PANEL - COMPLETE BLOOD COUNT AND DIFFERENTIAL - HEMOGLOBIN A1C 4. Mixed hyperlipidemia - ICD9: 272.2, ICD10: E78.2 - Control undetermined, due for labs - Counseled on healthy diet and regular exercise Encouraged restarting statin therapy, pt declines at this time. Follow-up in 3/4 weeks to review lab work being off of all of her medications. - COMPREHENSIVE METABOLIC PANEL - COMPLETE BLOOD COUNT AND DIFFERENTIAL - LIPID PANEL BASIC RTO in 3/4 weeks, sooner if needed. Prescription instructions reviewed with patient as applicable. Potential red flag symptoms discussed with the patient. Reviewed appropriate action plan to take if red flag symptoms occur. Patient agreeable to treatment plan. Jamaica Marsh APRN.[address] [place] [address] documented in this encounterLouis Stokes Cleveland [facility] Center01-16-2025 NoteHNO ID: [id number] Author: JAMAICA MIRELES APRN.CNP Service: ? Author Type: Nurse Practitioner Type: Progress Notes Filed: 05/02/2024 09:22 Note Text: Chief Complaint Patient presents with: urgent car f/;up edema in joão legs: Started a couple weeks ago in knees then down HPI Mariella Ramirez is a 54 year old female who presents here today for Above Complaints. Mariella is an established patient of Dr. Yovani DO. Concerns today.. Express care follow-up --- Express care visit yesterday d/t URI symptoms, SOB, and leg edema. Per note: ASSESSMENT/PLAN: 1. SOB (shortness of breath) - ICD9: 786.05, ICD10: R06.02 (primary diagnosis) 2. Bilateral leg edema - ICD9: 782.3, ICD10: R60.0 - XR CHEST 2V FRONTAL/LAT Lungs and pleura: No consolidation. No lung mass. No pleural effusion. No pneumothorax. Cardiomediastinal silhouette: The cardiac silhouette appears mildly prominent accentuated by magnification related to the AP technique. Coronary artery stents are noted IMPRESSION: No acute radiographic abnormality No pneumonia or pulmonary edema of heart failure. Likely recent viral URI (includes COVID, flu, and RSV which are prevalent in the community). ER evaluation is more appropriate where more diagnostic testing is available to evaluate for ketoacidosis, heart failure, or DVT. She reports significant improvement in swelling and lethargy compared to last week; I still advised ER evaluation if symptoms are worsening. 3. Essential hypertension - ICD9: 401.9, ICD10: I10 4. Polyuria - ICD9: 788.42, ICD10: R35.89 5. Type 2 diabetes mellitus with both eyes affected by mild nonproliferative retinopathy without macular edema, with long-term current use of insulin (HCC) - ICD9: 250.50, 362.04, V58.67, ICD10: E11.3293, Z79.4 6. Noncompliance with medication regimen - ICD9: V15.81, ICD10: Z91.148 We reviewed short and long-term risks of uncontrolled medical conditions can lead to disability and . Encouraged to schedule follow up with primary care at discharge. Today in office.... Pt reports SOB and URI symptoms are improved and mostly resolved. Coming here today to evaluate bilateral lower extremity edema. Pt reports bilateral leg swelling x 2 weeks. R slightly worse than L. Reports in the morning they will be normal but as she is on her feet all day at work, they swell and are the worst at night. Pt is elevating feet as much as possible which does help. Wearing tight AND high socks at work but does not have compression stocking. Pt reports not taking any of her medications currently d/t trying to use all natural remedies. Camargo like all of her medications were making her feel worse and wants to try to use supplements instead. Reports feeling much better since doing so. Pt reports eating 1 grapefruit daily and taking daily detox regimen from [employer]. Pt is unsure what is in this. Has been using this stuff for a few weeks. BP is elevated. Pt admits to not taking lisinopril or metoprolol. She does not check BP at home. She denies chest pain, shortness of breath, palpitations, dizziness, headaches, or vision changes. Last 14 Encounter BP Readings: Date: BP: 05/02/2024 162/90 05/01/2024 154/90 12/23/2022 138/78 09/16/2022 138/84 08/25/2022 140/78 01/06/2022 120/70 01/05/2022 122/70 09/10/2021 120/82 05/24/2021 136/86 04/30/2021 179/87 02/22/2021 134/78 11/11/2020 120/70 07/17/2020 142/84 10/09/2019 132/82 Past medical history, appointments, medications, allergies reviewed. 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 07/04/2012 Previous Surgical History PAST SURGICAL HISTORY Procedure Laterality Date CAROTID STENT COLONOSCOPY FLX DX W/COLLJ SPEC WHEN PFRMD 12/02/2015 Colonoscopy (MAC) CORONARY STENT EA VESSEL 06/2020 DILATION AND CURETTAGE DXAND/THER NONOBSTETRIC Dilation AND curettage IMPLANTABLE CARDIOVERTER DEFIBRILLATOR PAST SURGICAL HISTORY OF 1995 Bilateral removal of breast tissue in axilla PAST SURGICAL HISTORY OF unsure R foot surgery - fusion vs bunionectomy, patient unsure Family History FAMILY HISTORY Problem Relation Age of Onset Cancer Father PROSTATE Alcohol/Drug Father Diabetes Father Hypertension Father Stroke Father Prostate Cancer Father Breast Cancer Maternal Grandmother Diabetes Paternal Uncle Stroke Paternal Uncle Breast Cancer Other MATERNAL COUSINS X2 Hypertension Other NIECE No Ocular Disease No Family History Patient Allergies ALLERGIES Allergen Reactions Steffi Inhibitors Cough Latex Rash Morphine GI Upset Terrible vomitting Current Medications Current Outpatient Medications on File Prior to Visit Medication Sig meto (more content not included)...[facility]01-15-2025 History of Present illness Narrative* Sophia Bates RT(R) - 05/01/2024 5:50 PM EST Radiology Service Progress Note PATIENT NAME: Mariella Ramirez DATE OF SERVICE: May 01, 2024 TIME: 5:37 PM PATIENT IDENTITY VERIFICATION COMPLETED USING TWO (2) IDENTIFIERS: Name and Date of confirmedby patient verbally. FALL SCREENING: Has the patient had 2 falls in the last year or 1 fall with injury or currently using an Ambulatory Assistive Device (Walker, Cane, Wheelchair, Crutches, etc.)? No PATIENT GENDER DATA: Assigned female at . status: : No status:NO. PATIENT RELEVANT IMPLANT DATA REVIEWED: Yes PATIENT PRESENTS WITH AN IMPLANTABLE OR ATTACHED PROFESSOR SCULPTURE: No RADIOLOGY DEPARTMENT: General X-ray: Exam(s) Completed: Chest X-Ray PERIPHERAL IV DATA: Not applicable SIGNED BY: RT Virgie(Dre) May 01, 2024 5:37 PM documented in this encounterLouis Stokes Cleveland [facility] Center01-15-2025 NoteHNO ID: [id number] Author: SOPHIA BATES RT(R) Service: ? Author Type: Credit Counselor Type: Progress Notes Filed: 05/01/2024 17:48 Note Text: Radiology Service Progress Note PATIENT NAME: Mariella Ramirez DATE OF SERVICE: May 01, 2024 TIME: 5:37 PM PATIENT IDENTITY VERIFICATION COMPLETED USING TWO (2) IDENTIFIERS: Name and Date of confirmed by patient verbally. FALL SCREENING: Has the patient had 2 falls in the last year or 1 fall with injury or currently using an Ambulatory Assistive Device (Walker, Cane, Wheelchair, Crutches, etc.)? No PATIENT GENDER DATA: Assigned female at . status: : No status: NO. PATIENT RELEVANT IMPLANT DATA REVIEWED: Yes PATIENT PRESENTS WITH AN IMPLANTABLE OR ATTACHED PROFESSOR SCULPTURE: No RADIOLOGY DEPARTMENT: General X-ray: Exam(s) Completed: Chest X-Ray PERIPHERAL IV DATA: Not applicable SIGNED BY: Sophia Bates RT(R) May 01, 2024 5:37 [facility]01-15-2025 NoteHNO ID: [id number] Author: HERMILO TROTTER MD Service: ? Author Type: Physician Type: Progress Notes Filed: 05/01/2024 18:20 Note Text: Patient presents with: Edema: bilateral legs x 2 weeks, painful HPI: Patient presents to the [facility] care with concerns for pneumonia. She had URI symptoms starting 2 weeks ago and someone at work had pneumonia. She has improving cough, nasal congestion, rhinorrhea, and sore throat. She is feeling very fatigued falling asleep while driving. She has had ongoing issues with leg edema which was significantly worse last week. She notes some numbness in her feet when the swelling is extreme or if she walks too much. She has shortness of breath, polyuria, and polydipsia. Occasionally feels her heart racing. Denies chest pain. Patient last seen in family medicine December 2022. She has been admitted to the hospital since she says about a year ago. Outside medical records show admission for DKA and hypertensive crisis at [facility] in October. She is not taking any of her prescription medications. She is instead using herbal supplements. No recent sugar checks. PAST MEDICAL HISTORY Diagnosis Date Constipation Coronary artery disease Diabetes mellitus without mention of complication Diabetes mellitus, gestational with last Hyperlipemia Hypertension Uncontrolled type 2 DM with proteinuria or microalbuminuria 07/04/2012 MEDICATIONS: metoprolol succinate ER (TOPROL XL) 100 mg Take 1 tablet by mouth two times a day. lisinopril (ZESTRIL) 10 mg tablet Take 1 tablet by mouth once daily. ticagrelor (BRILINTA) 90 mg tablet Take by mouth. [facility] atorvastatin (LIPITOR) 40 mg tablet TAKE 1 TABLET BY MOUTH ONCE DAILY AT BEDTIME FOR CHOLESTEROL insulin glargine (LANTUS SOLOSTAR U-100 INSULIN) 100 unit/mL (3 mL) Inject 30 Units subcutaneously daily at bedtime. insulin lispro (HUMALOG KWIKPEN INSULIN) 100 unit/mL 12 units 3 times daily (Patient taking differently: Inject 6 Units subcutaneously three times a day before meals. 12 units 3 times daily) blood sugar diagnostic (BLOOD GLUCOSE TEST) test strip Test blood sugar(s) one times daily. Dx: 250.00. Insulin: No BABY ASPIRIN ORAL Take by mouth. Cholecalciferol, Vitamin D3, (DIALYVITE VITAMIN D) 125 mcg (5,000 unit) cap Take 1 capsule by mouth once daily. Insulin Hume, Disposable, (BD ULTRA-FINE SONU PEN NEEDLE) 32 gauge x 5/32 ndle 2Use one needle for each dose. 1/day. Lancets lancets Test blood sugar(s) 1 times daily. Dx: DM2. Insulin: No blood sugar diagnostic (RELION PRIME TEST STRIPS) test strip Diabetes mellitus type 2, non insulin dependent, testing 1x/day, Use as instructed ONETOUCH ULTRA TEST test strip USE TO CHECK GLUCOSE ONCE DAILY Blood-Glucose Meter (ONE TOUCH ULTRA 2) monitoring kit 1 Each as needed. One Touch Meter Kit Diagnosis: Diabetes Mellitus ibuprofen 800 mg tablet Take 1 tablet by mouth every 8 hours as needed (FOR PAIN. TAKE WITH FOOD). MULTI-VITAMIN ORAL Take by mouth. ALLERGIES: ALLERGIES Allergen Reactions Steffi Inhibitors Cough Latex Rash VITALS: BP 154/90 Pulse 104 Temp 36.8 ?C (98.3 ?F) Resp 16 Wt 73 kg (160 lb 15 oz) LMP 12/30/2021 (Approximate) SpO2 99% BMI 25.26 kg/m? Last 4 Encounter Wt Readings: Date: Wt: 05/01/2024 73 kg (160 lb 15 oz) 12/23/2022 72.8 kg (160 lb 9.6 oz) 09/16/2022 74.1 kg (163 lb 6.4 oz) 08/25/2022 65.3 kg (144 lb) PHYSICAL EXAM: GEN: pleasant, no acute distress, awake but somewhat drowsy. Accompanied by her daughter. HEENT: PERRL, EOMI, MMM NECK: supple, no lymphadenopathy, no thyromegaly HEART: borderline fast rate, regular rhythm, no murmurs LUNGS: diminished bases, no wheezes or crackles, no increased WOB EXT: no clubbing, no cyanosis, 1-2+ edema of the lower legs and feet. Reports sensation intact in toes. ASSESSMENT/PLAN: 1. SOB (shortness of breath) - ICD9: 786.05, ICD10: R06.02 (primary diagnosis) 2. Bilateral leg edema - ICD9: 782.3, ICD10: R60.0 - XR CHEST 2V FRONTAL/LAT Lungs and pleura: No consolidation. No lung mass. No pleural effusion. No pneumothorax. Cardiomediastinal silhouette: The cardiac silhouette appears mildly prominent accentuated by magnification related to the AP technique. Coronary artery stents are noted IMPRESSION: No acute radiographic abnormality No pneumonia or pulmonary edema of heart failure. Likely recent viral URI (includes COVID, flu, and RSV which are prevalent in the community). ER evaluation is more appropriate where more diagnostic testing is available to evaluate for ketoacidosis, heart failure, or DVT. She reports significant improvement in swelling and lethargy compared to last week; I still advised ER evaluation if symptoms are worsening. 3. Essential hypertension - ICD9: 401.9, ICD10: I10 4. Polyuria - ICD9: 788.42, ICD10: R35.89 5. 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01-15-2025 History of Present illness Narrative* Hermilo Trotter MD - 05/01/2024 5:19 PM EST Patient presents with: Edema: bilateral legs x 2 weeks, painful HPI: Patient presents to the [facility] care with concerns for pneumonia. She had URI symptoms starting 2 weeks ago and someone at work had pneumonia. She has improving cough, nasal congestion, rhinorrhea, and sore throat. She is feeling very fatigued falling asleep while driving. She has had ongoing issues with leg edema which was significantly worse last week. She notes some numbness in her feet when the swelling is extreme or if she walks too much. She has shortness of breath, polyuria, and polydipsia. Occasionally feels her heart racing. Denies chest pain. Patient last seen in family medicine December 2022. She has been admitted to the hospital since she says about a year ago. Outside medical records show admission for DKA and hypertensive crisis at [facility] in October. She is not taking any of her prescription medications. She is instead using herbal supplements. No recent sugar checks. PAST MEDICAL HISTORY Diagnosis Date Constipation Coronary artery disease Diabetes mellitus without mention of complication Diabetes mellitus, gestational with last Hyperlipemia Hypertension Uncontrolled type 2 DM with proteinuria or microalbuminuria 07/04/2012 MEDICATIONS: metoprolol succinate ER (TOPROL XL) 100 mg Take 1 tablet by mouth two times a day. lisinopril (ZESTRIL) 10 mg tablet Take 1 tablet by mouth once daily. ticagrelor (BRILINTA) 90 mg tablet Take by mouth. [facility] atorvastatin (LIPITOR) 40 mg tablet TAKE 1 TABLET BY MOUTH ONCE DAILY AT BEDTIME FOR CHOLESTEROL insulin glargine (LANTUS SOLOSTAR U-100 INSULIN) 100 unit/mL (3 mL) Inject 30 Units subcutaneously daily at bedtime. insulin lispro (HUMALOG KWIKPEN INSULIN) 100 unit/mL 12 units 3 times daily (Patient taking differently: Inject 6 Units subcutaneously three times a day before meals. 12 units 3 times daily) blood sugar diagnostic (BLOOD GLUCOSE TEST) test strip Test blood sugar(s) one times daily. Dx: 250.00. Insulin: No BABY ASPIRIN ORAL Take by mouth. Cholecalciferol, Vitamin D3, (DIALYVITE VITAMIN D) 125 mcg (5,000 unit) cap Take 1 capsule by mouthonce daily. Insulin Hume, Disposable, (BD ULTRA-FINE SONU PEN NEEDLE) 32 gauge x 5/32 ndle 2Use one needle for each dose. 1/day. Lancets lancets Test blood sugar(s) 1 times daily. Dx: DM2. Insulin: No blood sugar diagnostic (RELION PRIME TEST STRIPS) test strip Diabetes mellitus type 2, non insulin dependent, testing 1x/day, Use as instructed ONETOUCH ULTRA TEST test strip USE TO CHECK GLUCOSE ONCE DAILY Blood-Glucose Meter (ONE TOUCH ULTRA 2) monitoring kit 1 Each as needed. One Touch Meter Kit Diagnosis: Diabetes Mellitus ibuprofen 800 mg tablet Take 1 tablet by mouth every 8 hours as needed (FOR PAIN. TAKE WITH FOOD). MULTI-VITAMIN ORAL Take by mouth. ALLERGIES: ALLERGIES Allergen Reactions Steffi Inhibitors Cough Latex Rash VITALS: BP 154/90 Pulse 104 Temp 36.8 C (98.3 F) Resp 16 Wt 73 kg (160 lb 15 oz) LMP 12/30/2021 (Approximate) SpO2 99% BMI 25.26 kg/m Last 4 Encounter Wt Readings: Date: Wt: 05/01/2024 73 kg (160 lb 15 oz) 12/23/2022 72.8 kg (160 lb 9.6 oz) 09/16/2022 74.1 kg (163 lb 6.4 oz) 08/25/2022 65.3 kg (144 lb) PHYSICAL EXAM: GEN: pleasant, no acute distress, awake but somewhat drowsy. Accompanied by her daughter. HEENT: PERRL, EOMI, MMM NECK: supple, no lymphadenopathy, no thyromegaly HEART: borderline fast rate, regular rhythm, no murmurs LUNGS: diminished bases, no wheezes or crackles, no increased WOB EXT: no clubbing, no cyanosis, 1-2+ edema of the lower legs and feet. Reports sensation intact in toes. ASSESSMENT/PLAN: 1. SOB (shortness of breath) - ICD9: 786.05, ICD10: R06.02 (primary diagnosis) 2. Bilateral leg edema - ICD9: 782.3, ICD10: R60.0 - XR CHEST 2V FRONTAL/LAT Lungs and pleura: No consolidation. No lung mass. No pleural effusion. No pneumothorax. Cardiomediastinal silhouette: The cardiac silhouette appears mildly prominent accentuated by magnification related to the AP technique. Coronary artery stents are noted IMPRESSION: No acute radiographic abnormality No pneumonia or pulmonary edema of heart failure. Likely recent viral URI (includes COVID, flu, andRSV which are prevalent in the community). ER evaluation is more appropriate where more diagnostic testing is available to evaluate for ketoacidosis, heart failure, or DVT. She reports significant imp rovement in swelling and lethargy compared to last week; I still advised ER evaluation if symptoms are worsening. 3. Essential hypertension - ICD9: 401.9, ICD10: I10 4. Polyuria - ICD9: 788.42, ICD10: R35.89 5. Type 2 diabetes mellitus with both eyes affected by mild nonproliferative retinopathy without macular edema, with long-term current use of insulin (HCC) - ICD9: 250.50, 362.04, V58.67, ICD10: E11.3293, Z79.4 6. Noncompliance with medication regimen - ICD9: V15.81, ICD10: Z91.148 We reviewed short and long-term risks of uncontrolled medical conditions can lead to disability anddeath. Encouraged to schedule follow up with primary care at discharge. Hermilo Trotter MD documented in this encounterLouis Stokes [facility]10-22-2024 Telephone encounter Note * Telephone Encounter - Lisa Gomez RN - 02/06/2024 8:07 AM EDT Phoned patient and given provider's message below. Patient agreeable. [facility]10-[facility] Miscellaneous Notes* Telephone Encounter - Lisa Gomez RN - 02/06/2024 8:07 AM EDT Phoned patient and given provider's message below. Patient agreeable. * Telephone Encounter - Gerber Pina DO - 02/05/2024 5:01 PM EDT This needs to be addressed by Hot Stick Man Gerber Pina DO * Telephone Encounter - Sherlyn Hurst - 02/02/2024 11:57 AM EDT Patient called back to check on status of request. Advised her we are waiting on a reply from pcp. She'd like a call back as soon as possible. [phone] * Telephone Encounter - Chayito Velásquez MA - 02/02/2024 11:16 AM EDT Looks like pt is getting this from the [facility]. * Telephone Encounter - Nichole Rosales - 02/02/2024 10:53 AM EDT Mariella is calling Gerber Pina DO today requesting a refill on a discontinued medication BRILINTA 90 mg tablet Monicat -Pat documented in this encounterLouis Stokes [facility] Center10-21-2024 Telephone encounter Note * Telephone Encounter - Gerber Pina DO - 02/05/2024 5:01 PM EDT This needs to be addressed by Hot Stick Man Gerber Pina DO [facility]10-[facility] Telephone encounter Note* Telephone Encounter - Sherlyn Hurst - 02/02/2024 11:57 AM EDT Patient called back to check on status of request. Advised her we are waiting on a reply from pcp. She'd like a call back as soon as possible. [phone] [facility] Telephone encounter Note* Telephone Encounter - Chayito Velásquez MA - 02/02/2024 11:16 AM EDT Looks like pt is getting this from the [facility]. [facility] Telephone encounter Note* Telephone Encounter - Nichole Rosales - 02/02/2024 10:53 AM EDT Mariella is calling Gerber Pina DO today requesting a refill on a discontinued medication BRILINTA 90 mg tablet Paradisemart -Pat [facility]07-27-20[facility] Discharge summary Date of Service 11/11/2023 Discharge Diagnosis Acidosis, unspecified (E87.20 - ICD-10-CM) Acidosis, unspecified (E87.20 - ICD-10-CM) Type 2 diabetes mellitus with ketoacidosis without coma (E11.10 - ICD-10-CM) Hypertensive crisis, unspecified (I16.9 - ICD-10-CM) Atherosclerotic heart disease of [place] coronary artery without angina pectoris (I25.10 - ICD-10-CM) Hyperlipidemia, unspecified (E78.5 - ICD-10-CM) Presence of coronary angioplasty implant and graft (Z95.5 - ICD-10-CM) Essential (primary) hypertension (I10 - ICD-10-CM) CAD (coronary artery disease) (I25.10 - ICD-10-CM) DKA (diabetic ketoacidosis) (E11.10 - ICD-10-CM) HLD (hyperlipidemia) (E78.5 - ICD-10-CM) HTN (hypertension) (I10 - ICD-10-CM) Hypertensive crisis (I16.9 - ICD-10-CM) Increased blood sugar ([id number] - PNED) Non-compliance (Z91.199 - ICD-10-CM) Additional Orders: Ordered: Alcohol Swabs,See Instructions, 1 box, Use one alcohol swab to clean finger TID as directed for blood sugar checks, # 1 EA, 0 Refill(s), Pharmacy: [facility], 167.6, cm, 11/10/23 20:01:00 EDT, Height, 63.3, kg, 11/10/23 20:01:00 EDT, Dosing Weight Ordered: Blood Glucose Test Machine,See Instructions, Use glucometer daily as directed for blood sugar checks. Dispense insurance preferred device., # 1 EA, 0 Refill(s), [facility] [facility], 167.6, cm, 11/10/23 20:01:00 EDT, Height, 63.3, kg, 11/10/23 20:01:00 EDT, Dosing We... Ordered: Blood Glucose Test Strips,See Instructions, Use one test strip to check blood sugar TID asdirected. Dispense insurance preferred test strips. 1 box of 100 strips, # 100 EA, 0 Refill(s), Pharmacy: [facility]12, 167.6, cm, 11/10/23 20:01:00 EDT, Height, 63.3, kg, 10/16... Discontinued: Brilinta (ticagrelor) 90 mg oral tablet,Dose : 90 mg = 1 tab(s), Oral, BID, 0 Refill(s) Ordered: Brilinta (ticagrelor) 90 mg oral tablet,Dose : 90 mg = 1 tab(s), Oral, BID, # 120 tab(s), 0 Refill(s) Ordered: Diabetes Education Consult,11/11/23 10:07:00 EDT, Complications Teaching, Once Other status: Discharge,11/11/23 10:07:00 EDT, Discharged to: Home(Complete) Ordered: Discharge Activity,Resume your pre-hospitalization activity, 11/11/23 10:07:00 EDT Ordered: Discharge Diet,No changes were made to your diet during your hospital stay. Please resume your pre hospitalization diet on discharge., 11/11/23 10:07:00 EDT Ordered: Discharge Return to Work, School, or Sports,Return to Work - NO Restrictions, May return to: work, Please excuse Mariella Ramirez from work from 11/09/2023 through 11/11/2023. She may return to work on 11/12/2023. Gay Blair APRN, CNP, 11/11/23 12:09:00 EDT Discontinued: Insulin Lispro KwikPen 100 units/mL injectable solution,Dose : 6 unit(s) =, Subcutaneous, TIDAC, 0 Refill(s) Ordered: Insulin Lispro KwikPen 100 units/mL injectable solution,Dose : 6 unit(s) = 0.06 mL, Subcutaneous, TIDAC, # 16.2 mL, 0 Refill(s), Pharmacy: [facility]12, 167.6, cm, 11/10/23 20:01:00EDT, Height, kg, 11/10/23 20:01:00 EDT, Dosing Weight Ordered: Lancets,See Instructions, Use one lancet to carmen finger for blood sugar testing TID as directed. Dispense insurance preferred lancets.1 box, # 1 EA, 0 Refill(s), Pharmacy: [facility], 167.6, cm, 11/10/23 20:01:00 EDT, Height, 63.3, kg, 11/10/23 2... Discontinued: Lantus Solostar Pen 100 units/mL 3 mL Pen,Dose : 30 unit(s) =, Subcutaneous, qHS, 0 Refill(s) Ordered: Lantus Solostar Pen 100 units/mL 3 mL Pen,Dose : 30 unit(s) =, Subcutaneous, qHS, # 15 mL,0 Refill(s), Pharmacy: [facility]12, 167.6, cm, 11/10/23 20:01:00 EDT, Height, kg, 11/10/23 20:01:00 EDT, Dosing Weight Ordered: Pen needles,See Instructions, Use one pen needle to inject insulin TID as directed. qs for1 month supply, # 1 EA, 0 Refill(s), Pharmacy: [facility]12, 167.6, cm, 11/10/23 20:01:00 EDT, Height, 63.3, kg, 11/10/23 20:01:00 EDT, Dosing Weight Ordered: acetaminophen,Dose : 650 mg =, Oral, q6hr, PRN Pain, scale 1-10, 0 Refill(s) Ordered: atorvastatin 40 mg oral tablet,Dose : 40 mg = 1 tab(s), Oral, qDay, # 60 tab(s), 0 Refill(s), Pharmacy: [facility]12, 167.6, cm, 11/10/23 20:01:00 EDT, Height, kg, 11/10/23 20:01:00EDT, Dosing Weight Ordered: folic acid 1 mg oral tablet,Dose : 1 mg = 1 tab(s), Oral, qDay, # 14 tab(s), 0 Refill(s), Pharmacy: [facility]12, 167.6, cm, 11/10/23 20:01:00 EDT, Height, kg, 11/10/23 20:01:00 EDT, Dosing Weight Other status: glucose 4 g oral tablet, chewable,Dose : 16 gram(s) = 4 tab(s), Chewed, Once, PRN forlow blood sugar, # 50 tab(s), 0 Refill(s), 11/11/23 10:07:00 EDT, Pharmacy: [facility]12, 167.6, cm, 11/10/23 20:01:00 EDT, Height, kg, 11/10/23 20:01:00 EDT, Dosing Weight(Complete) Ordered: losartan 50 mg oral tablet,Dose : 50 mg = 1 tab(s), Oral, qDay, # 60 tab(s), 0 Refill(s), Pharmacy: [facility]12, 167.6, cm, 11/10/23 20:01:00 EDT, Height, kg, 11/10/23 20:01:00 EDT, Dosing Weight Ordered: metoprolol succinate 100 mg oral TABLET extended release,Dose : 100 mg = 1 tab(s), Oral, BID, # 120 tab(s), 0 Refill(s), Pharmacy: [facility]12, 167.6, cm, 11/10/23 20:01:00 EDT, Height, kg, 11/10/23 20:01:00 EDT, Dosing Weight Ordered: ondansetron 4 mg oral tablet,Dose : 4 mg = 1 tab(s), Oral, q8h, PRN Nausea/Vomiting, X 3 day(s), # 15 tab(s), 0 Refill(s), 11/14/23 10:00:00 EDT, Pharmacy: [facility]12, 167.6, cm, 11/10/23 20:01:00 EDT, Height, kg, 11/10/23 20:01:00 EDT, Dosing Weight Ordered: thiamine 100 mg oral tablet,Dose : 100 mg = 1 tab(s), Oral, qDay, X 14 day(s), # 14 tab(s), 0 Refill(s), 11/25/23 9:59:00 EDT, Pharmacy: [facility], 167.6, cm, 11/10/23 20:01:00 EDT, Height, kg, 11/10/23 20:01:00 EDT, Dosing Weight Hospital Course Patient is a 53-year-old female with past medical history of diabetes mellitus type 2, coronary disease status post multiple stents, hyperlipidemia, hypertension. She presented to [facility] on 11/09/2023 with chief concern of lethargy, nausea vomiting and abdominal discomfort. Patient is apparently noncompliant with her medications. [facility] after they retrieved her from her car and found her covered in feces. Lab work on arrival showsa venous pH of 7.319, WBCs of 12.7, hemoglobin 10.4, glucose 455, CO2 19 electrolyte balance 17, beta hydroxybutyrate 52. Drug screen negative. Patient was admitted for further workup and evaluation of DKA. Started on insulin drip and IV fluids. Was bridged tp her home dose of Lantus and started on prandial insulin. Patient's blood sugars are well-controlled on this regimen. Patient's hemoglobin A1c found to be 16.1. Patient will need follow-up as outpatient with staff educator and to follow with her PCP. At this time patient is medically stable for discharge. Will send new prescriptions for diabetic regimen, blood pressure medications, diabetic equipment. On exam today, patient resting comfortably in the bed. States that she is slightly nauseous today but would like to be discharged. She states that she does not eat the smartest decisions at home. States that she is willing to take insulin regimen and new blood pressure medications. Patient highly encouraged to follow-up with her PCP. Plan of care discussed with patient. All questions answered. Patient verbalized understanding is agreeable to plan of care. Discussed with my collaborating physician Dr. Finney. This dictation was performed using voice recognition software and may include grammatical and/or spelling errors. Allergies penicillin (Mild) vomiting Latex Consults Consult to Diabetes Education (Diabetes Education Consult) - Ordered -- 11/10/23 8:48:00 EDT, Noncompliant, Once Consult to Diabetes Education (Diabetes Education Consult) - Ordered -- 11/11/23 10:07:00 EDT, Complications Teaching, Once Imaging Results and Diagnostics XR Chest 1 View Result Date: November 09, 2023 Verified By: POLO ESTRADA MD CLINICAL STATEMENT: IMPRESSION: No acute radiographic abnormality. I have personally reviewed the images of this examination and agree with theresident's findings and interpretation. Physical Exam Vitals and Measurements T: 36.9 C (Oral) TMIN: 36.8 C (Oral) TMAX: 37.2 C (Oral) HR: 75 (Monitored) RR: 17 BP: 180/95 SpO2:97% HT: 167.6 cm WT: 63.3 kg BMI: 22.53 Weight Dosing Weight: 63.3 kg (11/10/23) Physical Exam General: No acute distress. Alert and Appropriate Skin: No rash. Warm, Dry, Intact Lungs: Bilaterally diminished breath sounds with no crepitation or wheeze. Unlabored Cardiovascular: Heart is regular rhythm, S1S2, No extra-audible heart tones Abdomen: Abdomen is soft, nontender. Bowel sounds positive all four quadrants. Extremities: No clubbing, cyanosis or edema. Peripheral pulses palpable. No calf tenderness. Adequate peripheral circulation. Neurological: The patient is awake, oriented to time, people and place. Following simple commands, moving all extremities. Code Status No qualifying data available. Admission Date 11/09/2023 Discharge Date 11/11/2023 Patient Instructions You are found to be in DKA related to elevated blood sugar -Please resume your home 30 units of Lantus in addition to 6 units sliding scale -Hemoglobin A1c found to be 16.1 -Recommend that you follow-up with the software educator You were also found to have extremely elevated blood pressure on admission -Please continue to take losartan, metoprolol, atorvastatin We will send Zofran, thiamine and folic acid to assist with symptoms of nausea -Please follow-up with your primary care doctor soon as possible or establish with a new one Medications New Prescription [id number] Milligram by mouth every 6 hours as needed Pain, scale 1-10. atorvastatin (atorvastatin 40 mg oral tablet)1 tab(s) by mouth once a day for 60 Days. Refills: 0. DME (Alcohol Swabs)1 box, Use one alcohol swab to clean finger TID as directed for blood sugar checks. Refills: 0. DME (Blood Glucose Test Machine)Use glucometer daily as directed for blood sugar checks. Dispense insurance preferred device.. Refills: 0. DME (Blood Glucose Test Strips)Use one test strip to check blood sugar TID as directed. Dispense insurance preferred test strips. 1 box of 100 strips. Refills: 0. DME (Lancets)Use one lancet to carmen finger for blood sugar testing TID as directed. Dispense insurance preferred lancets.1 box. Refills: 0. DME (Pen needles)Use one pen needle to inject insulin TID as directed. qs for 1 month supply. Refills: 0. folic acid (folic acid 1 mg oral tablet)1 tab(s) by mouth once a day for 14 Days. Refills: 0. losartan (losartan 50 mg oral tablet)1 tab(s) by mouth once a day for 60 Days. Refills: 0. metoprolol (metoprolol succinate 100 mg oral TABLET extended release)1 tab(s) by mouth two (2) times a day for 60 Days. Refills: 0. ondansetron (ondansetron 4 mg oral tablet)1 tab(s) by mouth every 8 hours as needed Nausea/Vomitingfor 3 Days. Refills: 0. thiamine (thiamine 100 mg oral tablet)1 tab(s) by mouth once a day for 14 Days. Refills: 0. Changed insulin glargine (Lantus Solostar Pen 100 units/mL 3 mL Pen)30 unit(s) Subcutaneous daily at bedtime for 90 Days. Refills: 0. insulin lispro (HumaLOG) (Insulin Lispro KwikPen 100 units/mL injectable solution)0.06 Milliliter Subcutaneous three (3) times a day before meals for 90 Days. Refills: 0. ticagrelor (Brilinta (ticagrelor) 90 mg oral tablet)1 tab(s) by mouth two (2) times a day for 60 Days. Refills: 0. Follow Up Follow Up with Follow up with primary care provider When:Within 1-2 days Additional Information: Please follow-up with your primary care doctor soon as possible or establish with a new one Follow Up with Call AMB New Pt. Refferral [phone] When:Within 1-2 days Follow Up with Call Physician Referral When:Within 1-2 days Follow Up Appointments No qualifying data available. Follow Up Labs/Studies Discharge Labs No Follow-up Labs Discharge Studies No Follow-up Studies Discharge Diet Discharge Diet - Ordered -- No changes were made to your diet during your hospital stay. Please resume your pre hospitalization diet on discharge., 11/11/23 10:07:00 EDT Discharge Activity Discharge Activity - Ordered -- Resume your pre-hospitalization activity, 11/11/23 10:07:00 EDT Discharge Return to Work, School, or Sports - Ordered -- Return to Work - NO Restrictions, May return to: work, Please excuse Mariella Ramirez from work from 11/09/2023 through 11/11/2023. She may return to work on 11/12/2023. -Gissel Blair APRN, CNP, 11/11/23 12:09:00 EDT Condition on Discharge Stable Discharge Disposition Home Information Provided To Patient Time Spent I have spent a total of 34 minutes reviewing the patient's diagnostic labs and testing, seeing and examining the patient, and documenting in the medical record. Please see assessment for further detail. Digitally Signed by JAIRON BLAIR on 11/11/2023 01:40 PM [id number] Discharge instructions Patient Education 11/11/2023 11:25:29 Hypertension, Adult, [id number] Hypertension, Adult Hypertension is another name for high blood pressure. High blood pressure forces your heart to workharder to pump blood. This can cause problems over time. There are two numbers in a blood pressure reading. There is a top number (systolic) over a bottom number (diastolic). It is best to have a blood pressure that is below 120/80. Healthy choices can help lower your blood pressure, or you may need medicine to help lower it. What are the causes? The cause of this condition is not known. Some conditions may be related to high blood pressure. What increases the risk? Smoking. Having type 2 diabetes mellitus, high cholesterol, or both. Not getting enough exercise or physical activity. Being overweight. Having too much fat, sugar, calories, or salt (sodium) in your diet. Drinking too much alcohol. Having long-term (chronic) kidney disease. Having a family history of high blood pressure. Age. Risk increases with age. Race. You may be at higher risk if you are . Gender. Men are at higher risk than women before age 45. After age 65, women are at higher risk than men. Having obstructive sleep apnea. Stress. What are the signs or symptoms? High blood pressure may not cause symptoms. Very high blood pressure (hypertensive crisis) may cause: ?Headache. ?Feelings of worry or nervousness (anxiety). ?Shortness of breath. ?Nosebleed. ?A feeling of being sick to your stomach (nausea). ?Throwing up (vomiting). ?Changes in how you see. ?Very bad chest pain. ?Seizures. How is this treated? This condition is treated by making healthy lifestyle changes, such as: ?Eating healthy foods. ?Exercising more. ?Drinking less alcohol. Your health care provider may prescribe medicine if lifestyle changes are not enough to get your blood pressure under control, and if: ?Your top number is above 130. ?Your bottom number is above 80. Your personal target blood pressure may vary. Follow these instructions at home: Eating and drinking If told, follow the DASH eating plan. To follow this plan: ?Fill one half of your plate at each meal with fruits and vegetables. ?Fill one fourth of your plate at each meal with whole grains. Whole grains include whole-wheat pasta, brown rice, and whole-grain bread. ?Eat or drink low-fat dairy products, such as skim milk or low-fat yogurt. ?Fill one fourth of your plate at each meal with low-fat (lean) proteins. Low- fat proteins include fish, chicken without skin, eggs, beans, and tofu. ?Avoid fatty meat, cured and processed meat, or chicken with skin. ?Avoid pre-made or processed food. Eat less than 1,500 mg of salt each day. Do not drink alcohol if: ?Your doctor tells you not to drink. ?You are , may be , or are planning to become . If you drink alcohol: ?Limit how much you use to: ?0 1 drink a day for women. ?0 2 drinks a day for men. ?Be aware of how much alcohol is in your drink. In the [place] one drink equals one 12 oz bottle of beer (355 mL), one 5 oz glass of wine (148 mL), or one 1 oz glass of hard liquor (44 mL). Lifestyle Work with your doctor to stay at a healthy weight or to lose weight. Ask your doctor what the best weight is for you. Get at least 30 minutes of exercise most days of the week. This may include walking, swimming, or biking. Get at least 30 minutes of exercise that strengthens your muscles (resistance exercise) at least 3 days a week. This may include lifting weights or doing Pilates. Do not use any products that contain nicotine or tobacco, such as cigarettes, e- cigarettes, and chewing tobacco. If you need help quitting, ask your doctor. Check your blood pressure at home as told by your doctor. Keep all follow-up visits as told by your doctor. This is important. Medicines Take [id number] and prescription medicines only as told by your doctor. Follow directions carefully. Do not skip doses of blood pressure medicine. The medicine does not work as well if you skip doses.Skipping doses also puts you at risk for problems. Ask your doctor about side effects or reactions to medicines that you should watch for. Contact a doctor if you: Think you are having a reaction to the medicine you are taking. Have headaches that keep coming back (recurring). Feel dizzy. Have swelling in your ankles. Have trouble with your vision. Get help right away if you: Get a very bad headache. Start to feel mixed up (confused). Feel weak or numb. Feel faint. Have very bad pain in your: ?Chest. ?Belly (abdomen). Throw up more than once. Have trouble breathing. Summary Hypertension is another name for high blood pressure. High blood pressure forces your heart to work harder to pump blood. For most people, a normal blood pressure is less than 120/80. Making healthy choices can help lower blood pressure. If your blood pressure does not get lower with healthy choices, you may need to take medicine. This information is not intended to replace advice given to you by your health care provider. Make sure you discuss any questions you have with your health care provider. Document Released: 09/19/2008 Document Revised: 12/12/2018 Document Reviewed: 12/12/2018 [employer] Patient Education 2020 [employer] 11/11/2023 11:25:20 Blood Glucose Monitoring, Adult Blood Glucose Monitoring, Adult Monitoring your blood sugar (glucose) is an important part of managing your diabetes (diabetes mellitus). Blood glucose monitoring involves checking your blood glucose as often as directed and keeping a record (log) of your results over time. Checking your blood glucose regularly and keeping a blood glucose log can: Help you and your health care provider adjust your diabetes management plan as needed, including your medicines or insulin. Help you understand how food, exercise, illnesses, and medicines affect your blood glucose. Let you know what your blood glucose is at any time. You can quickly find out if you have low bloodglucose (hypoglycemia) or high blood glucose (hyperglycemia). Your health care provider will set individualized treatment goals for you. Your goals will be basedon your age, other medical conditions you have, and how you respond to diabetes treatment. Generally, the goal of treatment is to maintain the following blood glucose levels: Before meals (preprandial): 80 130 mg/dL (4.4 7.2 mmol/L). After meals (postprandial): below 180 mg/dL (10 mmol/L). A1c level: less than 7%. Supplies needed: Blood glucose meter. Test strips for your meter. Each meter has its own strips. You must use the strips that came with your meter. A needle to prick your finger (lancet). Do not use a lancet more than one time. A device that holds the lancet (lancing device). A journal or log book to write down your results. How to check your blood glucose 1.Wash your hands with soap and water. 2.Prick the side of your finger (not the tip) with the lancet. Use a different finger each time. 3.Gently rub the finger until a small drop of blood appears. 4.Follow instructions that come with your meter for inserting the test strip, applying blood to thestrip, and using your blood glucose meter. 5.Write down your result and any notes. Some meters allow you to use areas of your body other than your finger (alternative sites) to test your blood. The most common alternative sites are: Forearm. Thigh. Palm of the hand. If you think you may have hypoglycemia, or if you have a history of not knowing when your blood glucose is getting low (hypoglycemia unawareness), do not use alternative sites. Use your finger instead. Alternative sites may not be as accurate as the fingers, because blood flow is slower in these areas. This means that the result you get may be delayed, and it may be different from the result thatyou would get from your finger. Follow these instructions at home: Blood glucose log Every time you check your blood glucose, write down your result. Also write down any notes about things that may be affecting your blood glucose, such as your diet and exercise for the day. This information can help you and your health care provider: ?Look for patterns in your blood glucose over time. ?Adjust your diabetes management plan as needed. Check if your meter allows you to download your records to a computer. Most glucose meters store a record of glucose readings in the meter. If you have type 1 diabetes: Check your blood glucose 2 or more times a day. Also check your blood glucose: ?Before every insulin injection. ?Before and after exercise. ?Before meals. ?2 hours after a meal. ?Occasionally between 2:00 a.m. and 3:00 a.m., as directed. ?Before potentially dangerous tasks, like driving or using heavy machinery. ?At bedtime. You may need to check your blood glucose more often, up to 6 10 times a day, if you: ?Use an insulin pump. ?Need multiple daily injections (MDI). ?Have diabetes that is not well-controlled. ?Are ill. ?Have a history of severe hypoglycemia. ?Have hypoglycemia unawareness. If you have type 2 diabetes: If you take insulin or other diabetes medicines, check your blood glucose 2 or more times a day. If you are on intensive insulin therapy, check your blood glucose 4 or more times a day. Occasionally, you may also need to check between 2:00 a.m. and 3:00 a.m., as directed. Also check your blood glucose: ?Before and after exercise. ?Before potentially dangerous tasks, like driving or using heavy machinery. You may need to check your blood glucose more often if: ?Your medicine is being adjusted. ?Your diabetes is not well-controlled. ?You are ill. General tips Always keep your supplies with you. If you have questions or need help, all blood glucose meters have a 24-hour hotline phone number that you can call. You may also contact your health care provider. After you use a few boxes of test strips, adjust (calibrate) your blood glucose meter by following instructions that came with your meter. Contact a health care provider if: Your blood glucose is at or above 240 mg/dL (13.3 mmol/L) for 2 days in a row. You have been sick or have had a fever for 2 days or longer, and you are not getting better. You have any of the following problems for more than 6 hours: ?You cannot eat or drink. ?You have nausea or vomiting. ?You have diarrhea. Get help right away if: Your blood glucose is lower than 54 mg/dL (3 mmol/L). You become confused or you have trouble thinking clearly. You have difficulty breathing. You have moderate or large ketone levels in your urine. Summary Monitoring your blood sugar (glucose) is an important part of managing your diabetes (diabetes mellitus). Blood glucose monitoring involves checking your blood glucose as often as directed and keeping a record (log) of your results over time. Your health care provider will set individualized treatment goals for you. Your goals will be basedon your age, other medical conditions you have, and how you respond to diabetes treatment. Every time you check your blood glucose, write down your result. Also write down any notes about things that may be affecting your blood glucose, such as your diet and exercise for the day. This information is not intended to replace advice given to you by your health care provider. Make sure you discuss any questions you have with your health care provider. Document Released: 04/05/2004 Document Revised: 01/25/2019 Document Reviewed: 09/12/2016 [employer] Patient Education 2020 [employer]. Follow Up Care 11/09/2023 15:36:13 With:Follow up with primary care provider Address: When:1-2 days Comments:Please follow-up with your primary care doctor soon as possible or establish with a new one With:Call DEB [facility] Pt. Refferral [phone] Address:Unknown When:1-2 days With:Call Physician Referral Address:Unknown When:1-2 days [facility] 07-27-2024 Note Discharge Instructions Thank you for allowing [facility] to assist you with your healthcare needs. The following is importantdischarge information regarding your hospital visit. Your Care Team PHYSICIAN, NONE Your Diagnosis CAD (coronary artery disease) DKA (diabetic ketoacidosis) HLD (hyperlipidemia) HTN (hypertension) Hypertensive crisis Non-compliance What to do next Instructions From Your Doctor You are found to be in DKA related to elevated blood sugar -Please resume your home 30 units of Lantus in addition to 6 units sliding scale -Hemoglobin A1c found to be 16.1 -Recommend that you follow-up with the software educator You were also found to have extremely elevated blood pressure on admission -Please continue to take losartan, metoprolol, atorvastatin We will send Zofran, thiamine and folic acid to assist with symptoms of nausea -Please follow-up with your primary care doctor soon as possible or establish with a new one Follow Up Appointments Follow Up with Follow up with primary care provider When:Within 1-2 days Additional Information: Please follow-up with your primary care doctor soon as possible or establish with a new one Follow Up with Call AMB New Pt. Refferral [phone] When:Within 1-2 days Follow Up with Call Physician Referral When:Within 1-2 days The Following Activity and Diet Have Been Ordered for You Discharge Activity - Ordered -- Resume your pre-hospitalization activity, 11/11/23 10:07:00 EDT Discharge Diet - Ordered -- No changes were made to your diet during your hospital stay. Please resume your pre hospitalization diet on discharge., 11/11/23 10:07:00 EDT The Following Equipment Has Been Ordered for You No qualifying data available. The Following Treatments Have Been Ordered for You Discharge Labs No qualifying data available. Discharge Radiology No qualifying data available. Other Therapies No qualifying data available. Post Acute Orders No qualifying data available. Someone Will Contact You Regarding These Home Health Referrals No home referrals have been ordered for you. No one will call you. Allergies penicillin (Mild) vomiting Latex Medications Please ask your primary doctor or pharmacist before taking any other medication not listed, including over the counter drugs, herbal medications, vitamins and or supplements as they may interact withyour home medications. What How Much When Instructions Last Dose New acetaminophen 650 Milligram by mouth Every 6 hours as needed for Pain, scale 1-10 New atorvastatin (atorvastatin 40 mg oral tablet) 1 tab(s) by mouth Once a day Duration: 60 Days Pickup at [facility] New DME (Alcohol Swabs) See instructions 1 box, Use one alcohol swab to clean finger TID as directed for blood sugar checks Pickup at [facility] New DME (Blood Glucose Test Machine) See instructions Use glucometer daily as directed for blood sugar checks. Dispense insurance preferred device. Pickup at [facility] New DME (Blood Glucose Test Strips) See instructions Use one test strip to check blood sugar TID as directed. Dispense insurance preferred test strips. 1 box of 100 strips Pickup at [facility] New DME (Lancets) See instructions Use one lancet to carmen finger for blood sugar testing TID as directed. Dispense insurance preferred lancets.1 box Pickup at [facility] New DME (Pen needles) See instructions Use one pen needle to inject insulin TID as directed. qs for 1 month supply Pickup at [facility] New folic acid (folic acid 1 mg oral tablet) 1 tab(s) by mouth Once a day Duration: 14 Days Pickup at [facility] New losartan (losartan 50 mg oral tablet) 1 tab(s) by mouth Once a day Duration: 60 Days Pickup at [facility] New metoprolol (metoprolol succinate 100 mg oral TABLET extended release) 1 tab(s) by mouth Two (2) times a day Duration: 60 Days Pickup at [facility] New ondansetron (ondansetron 4 mg oral tablet) 1 tab(s) by mouth Every 8 hours as needed for Nausea/Vomiting Duration: 3 Days Pickup at [facility] New thiamine (thiamine 100 mg oral tablet) 1 tab(s) by mouth Once a day Duration: 14 Days Pickup at [facility] Changed insulin glargine (Lantus Solostar Pen 100 units/ mL 3 mL Pen) 30 unit(s) Subcutaneous Daily at bedtime Duration: 90 Days Pickup at [facility] Changed insulin lispro (HumaLOG) (Insulin Lispro KwikPen 100 units/ mL injectable solution) 0.06 Milliliter Subcutaneous Three (3) times a day before meals Duration: 90 Days Pickup at [facility] Changed ticagrelor (Brilinta (ticagrelor) 90 mg oral tablet) 1 tab(s) by mouth Two (2) times a day Duration: 60 Days Printed Prescription Pharmacy Information [facility]: [id number] [place], [place] [id number] [phone] Please take this list to your next doctor s visit. Bring all medications you take, including over the counter medications, herbals and other supplements with you to your doctor s visit. Patients and families are reminded to discard old lists and to update any records with all medication providers or retail pharmacies. Education Materials Hypertension, Adult Hypertension is another name for high blood pressure. High blood pressure forces your heart to workharder to pump blood. This can cause problems over time. There are two numbers in a blood pressure reading. There is a top number (systolic) over a bottom number (diastolic). It is best to have a blood pressure that is below 120/80. Healthy choices can help lower your blood pressure, or you may need medicine to help lower it. What are the causes? The cause of this condition is not known. Some conditions may be related to high blood pressure. What increases the risk? Smoking. Having type 2 diabetes mellitus, high cholesterol, or both. Not getting enough exercise or physical activity. Being overweight. Having too much fat, sugar, calories, or salt (sodium) in your diet. Drinking too much alcohol. Having long-term (chronic) kidney disease. Having a family history of high blood pressure. Age. Risk increases with age. Race. You may be at higher risk if you are . Gender. Men are at higher risk than women before age 45. After age 65, women are at higher risk than men. Having obstructive sleep apnea. Stress. What are the signs or symptoms? High blood pressure may not cause symptoms. Very high blood pressure (hypertensive crisis) may cause: ? Headache. ? Feelings of worry or nervousness (anxiety). ? Shortness of breath. ? Nosebleed. ? A feeling of being sick to your stomach (nausea). ? Throwing up (vomiting). ? Changes in how you see. ? Very bad chest pain. ? Seizures. How is this treated? This condition is treated by making healthy lifestyle changes, such as: ? Eating healthy foods. ? Exercising more. ? Drinking less alcohol. Your health care provider may prescribe medicine if lifestyle changes are not enough to get your blood pressure under control, and if: ? Your top number is above 130. ? Your bottom number is above 80. Your personal target blood pressure may vary. Follow these instructions at home: Eating and drinking If told, follow the DASH eating plan. To follow this plan: ? Fill one half of your plate at each meal with fruits and vegetables. ? Fill one fourth of your plate at each meal with whole grains. Whole grains include whole-wheat pasta, brown rice, and whole-grain bread. ? Eat or drink low-fat dairy products, such as skim milk or low-fat yogurt. ? Fill one fourth of your plate at each meal with low-fat (lean) proteins. Low-fat proteins include fish, chicken without skin, eggs, beans, and tofu. ? Avoid fatty meat, cured and processed meat, or chicken with skin. ? Avoid pre-made or processed food. Eat less than 1,500 mg of salt each day. Do not drink alcohol if: ? Your doctor tells you not to drink. ? You are , may be , or are planning to become . If you drink alcohol: ? Limit how much you use to: ? 0 1 drink a day for women. ? 0 2 drinks a day for men. ? Be aware of how much alcohol is in your drink. In the [place] one drink equals one 12 oz bottle of beer (355 mL), one 5 oz glass of wine (148 mL), or one 1 oz glass of hard liquor (44 mL). Lifestyle Work with your doctor to stay at a healthy weight or to lose weight. Ask your doctor what the best weight is for you. Get at least 30 minutes of exercise most days of the week. This may include walking, swimming, or biking. Get at least 30 minutes of exercise that strengthens your muscles (resistance exercise) at least 3 days a week. This may include lifting weights or doing Pilates. Do not use any products that contain nicotine or tobacco, such as cigarettes, e- cigarettes, and chewing tobacco. If you need help quitting, ask your doctor. Check your blood pressure at home as told by your doctor. Keep all follow-up visits as told by your doctor. This is important. Medicines Take sxpp-vhb-[id number] and prescription medicines only as told by your doctor. Follow directions carefully. Do not skip doses of blood pressure medicine. The medicine does not work as well if you skip doses.Skipping doses also puts you at risk for problems. Ask your doctor about side effects or reactions to medicines that you should watch for. Contact a doctor if you: Think you are having a reaction to the medicine you are taking. Have headaches that keep coming back (recurring). Feel dizzy. Have swelling in your ankles. Have trouble with your vision. Get help right away if you: Get a very bad headache. Start to feel mixed up (confused). Feel weak or numb. Feel faint. Have very bad pain in your: ? Chest. ? Belly (abdomen). Throw up more than once. Have trouble breathing. Summary Hypertension is another name for high blood pressure. High blood pressure forces your heart to work harder to pump blood. For most people, a normal blood pressure is less than 120/80. Making healthy choices can help lower blood pressure. If your blood pressure does not get lower with healthy choices, you may need to take medicine. This information is not intended to replace advice given to you by your health care provider. Make sure you discuss any questions you have with your health care provider. Document Released: 09/19/2008 Document Revised: 12/12/2018 Document Reviewed: 12/12/2018 [employer] Patient Education 2020 [employer] Blood Glucose Monitoring, Adult Monitoring your blood sugar (glucose) is an important part of managing your diabetes (diabetes mellitus). Blood glucose monitoring involves checking your blood glucose as often as directed and keeping a record (log) of your results over time. Checking your blood glucose regularly and keeping a blood glucose log can: Help you and your health care provider adjust your diabetes management plan as needed, including your medicines or insulin. Help you understand how food, exercise, illnesses, and medicines affect your blood glucose. Let you know what your blood glucose is at any time. You can quickly find out if you have low bloodglucose (hypoglycemia) or high blood glucose (hyperglycemia). Your health care provider will set individualized treatment goals for you. Your goals will be basedon your age, other medical conditions you have, and how you respond to diabetes treatment. Generally, the goal of treatment is to maintain the following blood glucose levels: Before meals (preprandial): 80 130 mg/dL (4.4 7.2 mmol/L). After meals (postprandial): below 180 mg/dL (10 mmol/L). A1c level: less than 7%. Supplies needed: Blood glucose meter. Test strips for your meter. Each meter has its own strips. You must use the strips that came with your meter. A needle to prick your finger (lancet). Do not use a lancet more than one time. A device that holds the lancet (lancing device). A journal or log book to write down your results. How to check your blood glucose 1. Wash your hands with soap and water. 2. Prick the side of your finger (not the tip) with the lancet. Use a different finger each time. 3. Gently rub the finger until a small drop of blood appears. 4. Follow instructions that come with your meter for inserting the test strip, applying blood to the strip, and using your blood glucose meter. 5. Write down your result and any notes. Some meters allow you to use areas of your body other than your finger (alternative sites) to test your blood. The most common alternative sites are: Forearm. Thigh. Palm of the hand. If you think you may have hypoglycemia, or if you have a history of not knowing when your blood glucose is getting low (hypoglycemia unawareness), do not use alternative sites. Use your finger instead. Alternative sites may not be as accurate as the fingers, because blood flow is slower in these areas. This means that the result you get may be delayed, and it may be different from the result thatyou would get from your finger. Follow these instructions at home: Blood glucose log Every time you check your blood glucose, write down your result. Also write down any notes about things that may be affecting your blood glucose, such as your diet and exercise for the day. This information can help you and your health care provider: ? Look for patterns in your blood glucose over time. ? Adjust your diabetes management plan as needed. Check if your meter allows you to download your records to a computer. Most glucose meters store a record of glucose readings in the meter. If you have type 1 diabetes: Check your blood glucose 2 or more times a day. Also check your blood glucose: ? Before every insulin injection. ? Before and after exercise. ? Before meals. ? 2 hours after a meal. ? Occasionally between 2:00 a.m. and 3:00 a.m., as directed. ? Before potentially dangerous tasks, like driving or using heavy machinery. ? At bedtime. You may need to check your blood glucose more often, up to 6 10 times a day, if you: ? Use an insulin pump. ? Need multiple daily injections (MDI). ? Have diabetes that is not well-controlled. ? Are ill. ? Have a history of severe hypoglycemia. ? Have hypoglycemia unawareness. If you have type 2 diabetes: If you take insulin or other diabetes medicines, check your blood glucose 2 or more times a day. If you are on intensive insulin therapy, check your blood glucose 4 or more times a day. Occasionally, you may also need to check between 2:00 a.m. and 3:00 a.m., as directed. Also check your blood glucose: ? Before and after exercise. ? Before potentially dangerous tasks, like driving or using heavy machinery. You may need to check your blood glucose more often if: ? Your medicine is being adjusted. ? Your diabetes is not well-controlled. ? You are ill. General tips Always keep your supplies with you. If you have questions or need help, all blood glucose meters have a 24-hour hotline phone number that you can call. You may also contact your health care provider. After you use a few boxes of test strips, adjust (calibrate) your blood glucose meter by following instructions that came with your meter. Contact a health care provider if: Your blood glucose is at or above 240 mg/dL (13.3 mmol/L) for 2 days in a row. You have been sick or have had a fever for 2 days or longer, and you are not getting better. You have any of the following problems for more than 6 hours: ? You cannot eat or drink. ? You have nausea or vomiting. ? You have diarrhea. Get help right away if: Your blood glucose is lower than 54 mg/dL (3 mmol/L). You become confused or you have trouble thinking clearly. You have difficulty breathing. You have moderate or large ketone levels in your urine. Summary Monitoring your blood sugar (glucose) is an important part of managing your diabetes (diabetes mellitus). Blood glucose monitoring involves checking your blood glucose as often as directed and keeping a record (log) of your results over time. Your health care provider will set individualized treatment goals for you. Your goals will be basedon your age, other medical conditions you have, and how you respond to diabetes treatment. Every time you check your blood glucose, write down your result. Also write down any notes about things that may be affecting your blood glucose, such as your diet and exercise for the day. This information is not intended to replace advice given to you by your health care provider. Make sure you discuss any questions you have with your health care provider. Document Released: 04/05/2004 Document Revised: 01/25/2019 Document Reviewed: 09/12/2016 Elsevier Patient Education 2020 [employer] Additional Information VACCINATE! IT SAVES LIVES! Members of the community who have not yet received the COVID-19 vaccine and would like to receive it can visit one of [facility] vaccine clinics. There are many vaccine clinic locations within the [facility]. For locations and available times, please visit [email or web address].[place].gov/. It is important to note that some COVID mobile vaccine clinics are held outdoors and may be canceled in rainy or stormy conditions. To learn more about pediatric vaccinations (ages 5-11), we invite you to visit the [facility] webpage. [email or web address]/[email or web address] [email or web address] learn more about the COVID-19 vaccine, we invite you to visit the CDC website for a list of frequently asked questions.https://www.cdc.gov/coronavirus/2019-ncov/vaccines/faq.html [employer] Patient Portal Access Instructions: Stay connected with your healthcare team and access your personal medical information anytime with the [employer] Patient Portal. Please follow the directions below to create your [employer] account: 1.Access the email account you provided upon registration to the hospital/physician office.2.Look for an invitation email from [facility].3.Open the email and access the invitation link: AcceptInvitation to [employer].4.Fill in the required randolph to create your account. To access your account, visit [employer]. Click the blue button labeled Access Patient Portal and then log in with the username and password that you created in the steps above. You will be able to view your test results, lab results, a summary of your visits, upcoming appointments and more. There is also a convenient messaging option where you can send secure messages to your p Razorsightvider. In addition, you will have the ability to download any documents or summaries to your computer and/or send the information securely to a physician. Remember that your healthcare information is confidential, so carefully consider who you will allowto register on the [facility] Patient Portal for access to your information. You can also access the [facility] Patient Portal on the [employer] baltazar. Simply click on Patient Portal and then log into your account. If you would like to receive a full copy of your medical records, please contact the [facility] Medical Records Department by calling [phone], Monday through Monday between 8 a.m. and 4:30 p.m. HOW TO SAFELY DISPOSE OF PRESCRIPTION MEDICATIONS Please use one of the following methods to safely dispose of your unused medications. 1.Use a drug disposal kit: the drug disposal pouch allows you to safely discard your old and unuseddrugs. Ask your nurse to give you one when you are discharged.2.Visit a local take-back location: Many local pharmacies and police departments have programs that collect old and unwanted prescriptiondrugs. Call your local pharmacy or go to http://[employer]/3K9Ck8q to find one close to you.3.Make use of household items: Use cat litter or old coffee grounds to dispose medications if other options arenot available. Mix your drugs with these household products, seal them in an airtight container andthrow it into the garbage. Call [facility]: [phone] to be sure your drugs can be disposed of in this way. Some medicines may require a different approach.4.Never flush your medications down the toilet. IF YOU HAVE BEEN PRESCRIBED AN OPIOID FOR PAIN If you have been prescribed an opioid (such as hydrocodone, oxycodone or morphine), it is critical to understand the possible side effects and risks of opioid pain medications. Even when taken as directed, opioids can have several side effects including: Tolerance, meaning you might need to take more of a medication for the same pain relief. Nausea, vomiting and/or constipation. Sleepiness, dizziness, dry mouth, confusion, depression or itching. Physical dependence, meaning you have withdrawal symptoms when a medication is stopped, can develop within a few days. KNOW YOUR RESPONSIBILITIES It is important to know exactly how much and how often to take the opioid pain medications you are prescribed. Never take opioids in higher amounts or more often than prescribed. Do not combine opioids with alcohol or other drugs that cause drowsiness, such as benzodiazepines, also known as benzos, including diazepam and alprazolam, muscle relaxants or sleep aids. Never sell or share prescription opioids. This is illegal. Store opioids in a secure place and out of reach of others (including children, family, friends and visitors). The last page of this document has been signed and retained as a CHART COPY. Signatures Patient Education Materials Hypertension, Adult, Dvme-mn-Wklu Blood Glucose Monitoring, Adult Medication Leaflets My discharge plan and instructions have been reviewed and explained to me and I,RAMIREZ, MARIELLA understand my current condition and have read and understand these discharge instructions. I have receiveda written copy of the plan/instructions. If I have questions, I am aware that I should contact my do ctor. 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 Patient is apparently noncompliant withher medications. She was brought in by EMS after they retrieved her from her car and found her covered in feces. Blood work on admission Shows a venous pH of 7.319, WBCs of 12.7, hemoglobin 10.4, glucose 455, CO2 19 electrolyte balance 17, beta hydroxybutyrate 52. Drug screen negative. Patient was admitted for further workup and evaluation of DKA. Started on insulin drip and IV fluids. Was bridged with Lantus and started on prandial insulin. Patient seen and evaluated in the emergency department as she is being boarded. She was quite somnolent but did arouse to multiple repeated verbal stimulation. 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 Objective Vitals and Measurements HR: 69 (Monitored) RR: 18 BP: 154/98 SpO2: 99% Intake and Output 7AM Yesterday to 7AM Today Intake and Output (Last 24 hours) Intake Output Total Summary Total Intake 0.00 Total Output 0.00 Fluid Balance 0.00 Physical Exam Constitutional: Patient is alert and oriented x3. In no acute distress. Eyes: PERRLA, EOM intact. ENT: hearing grossly intact, mucous membranes moist, Respiratory: Breathing nonlabored, lungs clear to auscultation bilaterally. Heart: Regular rate and rhythm. S1 S2 heard. GI: Bowel sounds x4 quadrants. No rebound tenderness or guarding. Neuro: speech clear. MCINTOSH equally. memory intact Skin: no rashes or lesions noted. skin warm, dry and intact. No qualifying data available. Medications Medications (21) Active Scheduled: (9) atorvastatin 40 mg tablet 40 mg 1 tab(s), Oral, qDay folic acid 1 mg tablet 1 mg 1 tab(s), Oral, qDay heparin 5,000 units/mL (1 mL) vial 5,000 unit(s) 1 mL, Subcutaneous, q8h insulin glargine 30 unit(s) 0.3 mL, Subcutaneous (INT), qHS insulin lispro 100 units/mL Soln (3 mL) Give 0-10 units/dose, Subcutaneous, TIDAC losartan 50 mg tablet 50 mg 1 tab(s), Oral, qDay metoprolol succinate 100 mg ER tablet 100 mg 1 tab(s), Oral, BID thiamine (w/calcium) 100 mg tablet 100 mg 1 tab(s), Oral, qDay ticagrelor 90 mg tablet 90 mg 1 tab(s), Oral, BID Continuous: (1) NS (0.9% nacl) 1,000 mL 1,000 mL, Intravenous, 125 mL/hr PRN: (11) acetaminophen 325 mg Tablet 650 mg 2 tab(s), Oral, q6hr acetaminophen 325 mg Tablet 650 mg 2 tab(s), Oral, q4h acetaminophen 650 mg Suppository 650 mg 1 supp, Rectal, q4h Al hydrox/Mg hydrox/simethicone 200-200-20 mg/5 mL Susp UD 30 mL, Oral, q2h bisacodyl 5 mg EC tablet 10 mg 2 tab(s), Oral, qDay dextrose 50% Solution Disp syringe 50 mL 25 g 50 mL, IV Push, AsDirected dextrose 50% Solution Disp syringe 50 mL 12.5 gram(s) 25 mL, IV Push, AsDirected docusate-senna (Senokot S) 50 mg-8.6 mg Tablet 1 tab(s), Oral, BID hydralazine 20 mg/mL (1mL) vial 10 mg 0.5 mL, IV Push, q4h melatonin 3 mg tablet 3 mg 1 tab(s), Oral, qHS ondansetron 2 mg/ 1 mL 2 mL INJ 4 mg 2 mL, IV Push, q4h Lab Results 11/09 04:08 WBC: 13.3 H Hgb: 10.9 L Hct: 33.1 L Platelet: 364 Neutrophil %: 86.8 H Glucose Level: 201 H Sodium Level: 141 Potassium Level: 4.8 BUN: 20.0 Creatinine Lvl (s): 0.80 11/08 21:34 WBC: 12.6 H Hgb: 11.9 L Hct: 36.8 Platelet: 403 Neutrophil %: 90.6 H Glucose Level: 292 H Sodium Level: 139 Potassium Level: 4.0 BUN: 15.0 Creatinine Lvl (s): 0.76 11/08 16:53 WBC: 12.7 H Hgb: 10.4 L Hct: 31.8 L Platelet: 368 Neutrophil %: 93.2 H Glucose Level: 455 C Sodium Level: 138 Potassium Level: 4.4 BUN: 13.0 Creatinine Lvl (s): 0.82 Imaging Results and Diagnostics XR Chest 1 View Result Date: November 09, 2023 Verified By: POLO ESTRADA MD CLINICAL STATEMENT: IMPRESSION: No acute radiographic abnormality. I have personally reviewed the images of this examination and agree with theresident's findings and interpretation. EKG EKG (ED) - Completed -- 11/09/23 16:26:00 EDT, 11/09/23 16:26:00 EDT Assessment/Plan 1. DKA (diabetic ketoacidosis) 2. Hypertensive crisis 3. CAD (coronary artery disease) 4. HLD (hyperlipidemia) 5. HTN (hypertension) 6. Non-compliance Diabetic ketoacidosis due to medication noncompliance patient was treated initially with insulin drip, has been bridged with Lantus. Will start an ADA diet. Continue prandial insulin. Continue long-acting insulin with 30 units of Lantus a day. A1c of 16.1, will need staff educator. Hypertensive crisis blood pressure Up to 228/94 in the emergency department. Patient reports she issupposed to take metoprolol 100 mg twice a day, will resume medication. Continue losartan. Did require IV hydralazine last evening in the emergency department. History of CAD status post multiple stents continue Brilinta. Hyperlipidemia continue statin. DVT prophylaxis: heparin Discussed w/ Dr. Finney. Anticipated Date of Discharge 11/10 Time Spent A total of 32 minutes reviewing patient's diagnostic, labs/tests, seeing and examining the patient and documenting in the medical record, please see assessment for further details. Digitally Signed by JOSE PRESLEY APRN-TIFFANIE on 11/10/2023 02:45 PM [facility] [id number] Note The patient is currently alert and oriented and awake and states that she only on occasion drinks alcohol. No concern for alcohol withdrawal. Alcohol withdrawal protocol will be discontinued. Digitally Signed by GEORGIANA ODEN MD on 11/10/2023 12:30 AM [facility] [id number] History and physical note Date of Service November 09, 2023 Chief Complaint pt states she has been nauseous and vomiting for a few days day. states her MBS have not been beingcontrolled well History of Present Illness A 53-year-old female with past medical history significant for type 2 diabetes mellitus, coronary disease s/p multiple stents, hyperlipidemia, hypertension scented to [facility] with chief concern oflethargy, nausea/vomiting and abdominal discomfort. Symptoms started today, patient was very lethargic on my evaluation provide follow history so history is limited, most of the history is obtained from ER physician report and review of medical records. Reportedly She is noncompliant with her medications, and felt well in the past several days, she called EMS, car and they found her covered in feces. He was drinking alcohol on a daily basis, she drinks from a bottle likely 2-3 drinks on a daily basis with last drink couple of days ago. ED course: Vital signs, labs, imaging and EKG were personally reviewed She was hypertensive on arrival with blood pressure as high as 228/94 mmHg. Labs reviewed, venous pH is low at 7.31. CBC showed white count of 12,700 with left shift, anemia with hemoglobin of 10.4, UA negative for UTI. CMP significant for blood sugar of 455, serum bicarb 19, anion gap of 17, beta hydroxybutyrate of 52.72. Troponin is negative. Ethanol level nondetectable, U tox negative. Chest x-ray did not show any acute radiographic abnormality. Clinically she seems to be in alcohol withdrawal with tremors of upper extremities, tachycardia andhypertension although on my evaluation she stated that she drinks maybe once a week but I suspect she drinks daily. EKG on admission demonstrated sinus rhythm with QTc of 400 ms. Received 2 L Ringer's lactate bolus in the ER along with 2 doses of IV hydralazine, potassium supplementation and started on insulin drip in the ER. ED physician discussed the case with international coordinator who recommended admission to hospitalist team on stepdown monitored bed. Review of Systems Review of systems are negative except mentioned in HPI Physical Exam Vitals and Measurements HR: 114 (Monitored) RR: 18 BP: 208/74 SpO2: 99% No qualifying data available. General Appearance: Patient is very lethargic and tremulous, nauseated Head: Atraumatic and normocephalic EENT: EOMI, PERRLA, no oropharyngeal erythema, no tonsillar exudates, no conjunctival injection. sclera anicteric. Neck: No thyromegaly, no cervical lymphadenopathy, trachea midline Cardiac: S1 and S2 normal. RRR. No murmurs, rubs, or gallops. No JVD. No hepatojugular reflex. Lungs: Good air entry bilaterally. No increased work for breathing. No wheezes, rhonchi, or rales. Abdomen: Soft, nontender, nondistended. Normoactive bowel sounds. No rebound or guarding. Negative Loja's sign. No hepatosplenomegaly. Musculoskeletal: Full range of motion upper and lower extremities. No CVA tenderness. Extremities: No lower extremity pitting edema. 2+ radial and pedal pulses bilaterally. Neurological: No gross motor deficits Skin: No abrasions, scars, or hematomas on visible skin. No cyanosis. No purulent discharge. Psychiatric: Drowsy but arousable to verbal stimulation, nauseated, lethargic and tremulous. Lab Results 11/08 16:53 WBC: 12.7 H Hgb: 10.4 L Hct: 31.8 L Platelet: 368 Neutrophil %: 93.2 H Glucose Level: 455 C Sodium Level: 138 Potassium Level: 4.4 BUN: 13.0 Creatinine Lvl (s): 0.82 pH Venous: 7.319 Low (11/09/23 16:53:00) WBC: 12.7 10^3/mcL High (11/09/23 16:53:00) RBC: 3.69 10^6/mcL Low (11/09/23 16:53:00) Hgb: 10.4 G/dL Low (11/09/23 16:53:00) Hct: 31.8 % Low (11/09/23 16:53:00) MCV: 86 fL (11/09/23 16:53:00) MCH: 28.1 pg (11/09/23 16:53:00) MCHC: 32.7 G/dL (11/09/23 16:53:00) RDW: 13.5 % (11/09/23 16:53:00) Platelet: 368 10^3/mcL (11/09/23 16:53:00) MPV: 9.4 fL (11/09/23 16:53:00) Monocyte Distribution Width: 16.98 (11/09/23 16:53:00) Neutrophil %: 93.2 % High (11/09/23 16:53:00) Lymphocyte %: 4 % Low (11/09/23 16:53:00) Monocyte %: 2.3 % (11/09/23 16:53:00) Eosinophil %: 0 % (11/09/23 16:53:00) Basophil %: 0.5 % (11/09/23 16:53:00) Neutrophil, Absolute: 11.9 10^3/mcL High (11/09/23 16:53:00) Lymphocyte, Absolute: 0.5 10^3/mcL Low (11/09/23 16:53:00) Monocyte, Absolute: 0.3 10^3/mcL (11/09/23 16:53:00) Eosinophil, Absolute: 0 10^3/mcL (11/09/23 16:53:00) Basophil, Absolute: 0.1 10^3/mcL (11/09/23 16:53:00) UA Specimen Type: Clean Catch (11/09/23 17:08:00) UA Color: Yellow (11/09/23 17:08:00) UA Appear: Clear (11/09/23 17:08:00) UA Spec Grav: >=1.030 Abnormal (11/09/23 17:08:00) UA Glucose: >=1000 Abnormal (11/09/23 17:08:00) UA Bili: Negative. (11/09/23 17:08:00) UA Ketones: >=160 Abnormal (11/09/23 17:08:00) UA Blood: Negative. (11/09/23 17:08:00) UA pH: 5.5 (11/09/23 17:08:00) UA Protein: 100 Abnormal (11/09/23 17:08:00) UA Urobilinogen: 0.2 (11/09/23 17:08:00) UA Nitrite: Negative. (11/09/23 17:08:00) UA Leuk Est: Negative. (11/09/23 17:08:00) UA RBC: 0-2 (11/09/23 17:08:00) UA WBC: 5-10 Abnormal (11/09/23 17:08:00) UA Squam Epithelial: 3-5 (11/09/23 17:08:00) UA Bacteria: 4+ Abnormal (11/09/23 17:08:00) UA Hyal Cast: 0-2 Abnormal (11/09/23 17:08:00) Glucose Level: 455 mg/dL Critical (11/09/23 16:53:00) Sodium Level: 138 mEq/L (11/09/23 16:53:00) Potassium Level: 4.4 mEq/L (11/09/23 16:53:00) Chloride: 102 mEq/L (11/09/23 16:53:00) CO2: 19 mEq/L Low (11/09/23 16:53:00) Electrolyte Balance: 17 mEq/L High (11/09/23 16:53:00) BUN: 13 mg/dL (11/09/23 16:53:00) Creatinine Lvl (s): 0.82 mg/dL (11/09/23 16:53:00) BUN/Creatinine Ratio: 15.9 ratio (11/09/23 16:53:00) Calcium Lvl: 9.6 mg/dL (11/09/23 16:53:00) Total Protein: 7.9 G/dL (11/09/23 16:53:00) Albumin Level: 3.8 G/dL (11/09/23 16:53:00) Globulin: 4.1 G/dL High (11/09/23 16:53:00) A/G Ratio: 0.9 ratio (11/09/23 16:53:00) Bili Total: 0.6 mg/dL (11/09/23 16:53:00) Alk Phos: 85 U/L (11/09/23 16:53:00) AST/SGOT: 34 U/L (11/09/23 16:53:00) ALT/SGPT: 31 U/L (11/09/23 16:53:00) GFR Non-: >60 (11/09/23 16:53:00) GFR : >60 (11/09/23 16:53:00) B-Hydroxybutyrate: 52.72 mg/dL High (11/09/23 16:53:00) Lipase Level: 34 U/L (11/09/23 16:53:00) High Sensitivity Troponin I: 15 ng/L (11/09/23 16:53:00) Ethanol Level: <10.0 (11/09/23 16:53:00) Salicylate Lvl (ds): 5 mg/dL Low (11/09/23 16:53:00) Acetaminophen (ds): <2.0 Low (11/09/23 16:53:00) Serum Drugs screened: See Below (11/09/23 16:53:00) U pH Drug Scrn: 5.5 (11/09/23 17:08:00) Amphetamine (u): Negative-DSX (11/09/23 17:08:00) Barbiturate (u): Negative-DSX (11/09/23 17:08:00) Cannabinoid (u): Negative-DSX (11/09/23 17:08:00) Cocaine (u): Negative-DSX (11/09/23 17:08:00) Fentanyl (u): Negative-DSX (11/09/23 17:08:00) Benzodiazepine (u): Negative-DSX (11/09/23 17:08:00) Methadone (u): Negative-DSX (11/09/23 17:08:00) Opiate (u): Negative-DSX (11/09/23 17:08:00) Oxycodone (u): Negative-DSX (11/09/23 17:08:00) PCP (u): Negative-DSX (11/09/23 17:08:00) Propoxyphene (u): Negative-DSX (11/09/23 17:08:00) Urine Drugs screened: See Below (11/09/23 17:08:00) Blood Glucose, Capillary: 350 mg/dL High (11/09/23 20:29:00) Imaging Results and Diagnostics XR Chest 1 View Result Date: November 09, 2023 Verified By: POLO ESTRADA MD CLINICAL STATEMENT: IMPRESSION: No acute radiographic abnormality. I have personally reviewed the images of this examination and agree with theresident's findings and interpretation. EKG EC11/09/23: SINUS RHYTHM PROBABLE LEFT ATRIAL ENLARGEMENT PROBABLE LEFT VENTRICULAR HYPERTROPHY Electronic Signature: MARIBEL VELEZ DO 11/09/2023 17:08:23 Assessment/Plan Patient is admitted to stepdown monitored bed for DKA and likely alcohol withdrawal, case discussedwith ED physician, ED physician discussed the case with international coordinator. Assessment: Diabetic ketoacidosis Concern for alcohol withdrawal Hypertensive crisis Type 2 diabetes mellitus Coronary artery disease status post multiple stents Hyperlipidemia Hypertension Plan:- -Presented with lethargy, nausea/vomiting. Labs indicated high anion gap metabolic acidosis with blood glucose of 455. Received 2 L IV fluid bolus in the ER and started on insulin drip, blood sugar check every 1 hour, sips and chips for now. BMP, magnesium and phosphorus every 6 hours, once anion gap is closed we will switch the patient to subcu insulin. Half NS and D5 NS ordered, continue half NS if blood sugar is more than 200 mg/dL, switch to D5 half NS if blood sugar is less than 200 mg/dL.Potassium replacement. -Some of the symptoms concerning for alcohol withdrawal including hypertension and tachycardia, likely she drinks daily, last drink was 2 days ago. CIWA protocol with as needed Ativan ordered for signs or symptoms of alcohol withdrawal, thiamine/folate replacement. -Systolic was in 200s on arrival, did receive 2 doses of IV hydralazine. History of hypertension, likely medication noncompliance. Patient on only metoprolol at home according to her, continue home metoprolol, add losartan 50 mg daily. As needed hydralazine for systolic more than 185 mmHg. -Currently she is in DKA, once anion gap is closed switch to subcu insulin including long-acting insulin and sliding scale. -Coronary artery disease status post multiple stents, continue home medication Brilinta, statin added -Statin for hyperlipidemia -Losartan and metoprolol for hypertension Note was written using [employer] packing machine inspector software. Some of the meaning of the words and sentences might have changed during packing machine inspector, if there was ever some confusion about the meaning of some sentences, please do not hesitate to contact me. Procedure/Surgical History No qualifying data available. Medications Home Medications (3) Active Brilinta (ticagrelor) 90 mg oral tablet 90 mg = 1 tab(s), Oral, BID Insulin Lispro KwikPen 100 units/mL injectable solution 6 unit(s), Subcutaneous, TIDAC Lantus Solostar Pen 100 units/mL 3 mL Pen 30 unit(s), Subcutaneous, qHS Allergies Latex Social History Alcohol Use: Never., 11/09/2023 Substance Abuse Use: Never., 11/09/2023 Tobacco Nicotine Use: Never (less than 100 in lifetime)., 11/09/2023 Immunizations No qualifying data available. Code Status Code Status - Ordered -- 11/09/23 19:11:00 EDT, Full Code, Constant Order Digitally Signed by CHRIS EVANS MD on 11/09/2023 09:17 PM [facility] [id number] NoteSINUS RHYTHM PROBABLE LEFT ATRIAL ENLARGEMENT PROBABLE LEFT VENTRICULAR HYPERTROPHY Electronic Signature: MARIBEL VELEZ DO 11/09/2023 17:08:23[facility] 07-25-2024 Note ORIGINAL EXAMINATION: ONE XRAY VIEW OF THE CHEST 11/09/2023 5:04 pm COMPARISON: Chest x-ray 08/22/2020 HISTORY: ORDERING SYSTEM PROVIDED HISTORY: Reason for Exam: Diabetes, emergency patient FINDINGS: Cardiomediastinal contour stable. Coronary stent versus dense atherosclerosis. Low lung volumes with hypoventilatory changes. No focal consolidation or pulmonary edema. No pneumothorax or pleural effusion. No acute osseous abnormality. IMPRESSION: No acute radiographic abnormality. I have personally reviewed the images of this examination and agree with the resident's findings and interpretation. Interpreted by: Polo Estrada Preliminary Report By: Saulo Bueno Electronically signed By Edward Missinne Dictated Date: 11/09/2023 5:06:58 PM Prelim Date: 11/09/2023 5:08:13 PM Sign Date: 11/09/2023 5:10:44 PM Ordering Provider: MARIBEL [facility]07-25-2024 Evaluation + Plan note Extracted from: Title:History and Physical Author:CHRIS EVANS MD Date:11/09/23 Patient is admitted to stepd own monitored bed for DKA and likely alcohol withdrawal, case discussed with ED physician, ED physician discussed the case with international coordinator. Assessment: Diabetic ketoacidosis Concern for alcohol withdrawal Hypertensive crisis Type 2 diabetes mellitus Coronary artery disease status post multiple stents Hyperlipidemia Hypertension Plan:- -Presented with lethargy, nausea/vomiting. Labs indicated high anion gap metabolic acidosis with blood glucose of 455. Received 2 L IV fluid bolus in the ER and started on insulin drip, blood sugar check every 1 hour, sips and chips for now. BMP, magnesium and phosphorus every 6 hours, once anion gap is closed we will switch the patient to subcu insulin. Half NS and D5 NS ordered, continue half NS if blood sugar is more than 200 mg/dL, switch to D5 half NS if blood sugar is less than 200 mg/dL. Potassium replacement. -Some of the symptoms concerning for alcohol withdrawal including hypertension and tachycardia, likely she drinks daily, last drink was 2 days ago. CIWA protocol with as needed Ativan ordered for signs or symptoms of alcohol withdrawal, thiamine/folate replacement. -Systolic was in 200s on arrival, did receive 2 doses of IV hydralazine. History of hypertension, likely medication noncompliance. Patient on only metoprolol at home according to her, continue home metoprolol, add losartan 50 mg daily. As needed hydralazine for systolic more than 185 mmHg. -Currently she is in DKA, once anion gap is closed switch to subcu insulin including long-acting insulin and sliding scale. -Coronary artery disease status post multiple stents, continue home medication Brilinta, statin added -Statin for hyperlipidemia -Losartan and metoprolol for hypertension Note was written using [employer] packing machine inspector software. Some of the meaning of the words and sentences might have changed during packing machine inspector, if there was ever some confusion about the meaning of some sentences, please do not hesitate to contact me. [facility] 03-13-2024 Miscellaneous Notes* Telephone Encounter - Breana Hsu Ma - 06/28/2023 10:05 AM EDT Letter sent to pt notifying her we've attempted to reach her by phone multiple times with multiple messages left with no return call. Asked pt to contact office and speak with FM Triage Nurse. Breana Hsu Ma * Telephone Encounter - Jairon Santacruz MA - 06/20/2023 4:06 PM EST LM for pt to contact office. Jairon Santacruz MA * Telephone Encounter - Jacqui Jama LPN - 06/19/2023 4:33 PM EST Left a message for pt to call the office and ask to speak to a nurse. Jacqui Jama LPN * Telephone Encounter - Melly Colindres RN - 06/16/2023 12:59 PM EST TC patient, left message for patient to call back and speak with a triage nurse regarding provider instructions. Melly Colindres RN * Telephone Encounter - Arlet Stovall - 06/14/2023 5:14 PM EST Left message to return call Arlet Stovall * Telephone Encounter - Cecy Barboza APRN.TIFFANIE - 06/14/2023 5:02 PM EST After reviewing the note from cardiology, we would like to defer to cardiology to manage her BP medications. So she should be taking: metoprolol 100mg bid and lisinopril 10mg daily. Med list updated to reflect this. The following approved medication requests have been transmitted electronically. Requested Prescriptions Signed Prescriptions Disp Refills metoprolol succinate ER (TOPROL XL) 100 mg Sig: Take 1 tablet by mouth two times a day. Authorizing Provider: GERBER PINA Ordering User: CECY BARBOZA lisinopril (ZESTRIL) 10 mg tablet Sig: Take 1 tablet by mouth once daily. Authorizing Provider: GERBER PINA Ordering User: CECY BARBOZA APRN.CNP * Telephone Encounter - Arlet Stovall - 06/14/2023 4:54 PM EST Placed in RS inbox for review. Arlet Stovall * Telephone Encounter - Cecy Barboza APRN.CNP - 06/14/2023 4:41 PM EST Please get the visit note from [facility] for me to review. Cecy Barboza APRN.CNP * Telephone Encounter - Jairon Santacruz MA - 06/13/2023 1:03 PM EST Spoke with Yasmin at [facility]. Patient was prescribed Metoprolol 100 mg BID by Lorrie Hinojosa APRN CNP at [facility] the same day. Metoprolol 100 mg BID was dispensed to the patient. Phone call to patient to inquire who is managing her metoprolol. Pt states that PCP team manages. Per [place], patient was to increase metoprolol to 100 mg BID and change lisinopril to 10 mg dailyon 10/11/[address] Johnson. Reviewed with patient, asked patient if she ever made those changes, pt stated, I don't know, thatwas a year ago. Reviewed medication list in EPIC in great detail with patient. There are 11 medications flagged forreview that need d/c'd due to patient NOT taking. Confirmed dosages with patient and updated. Please review and advise current med list and how to proceed with metoprolol and lisinopril. Jairon Santacruz MA * Telephone Encounter - Cecy Barboza APRN.TIFFANIE - 06/12/2023 7:22 AM EST The prescription we sent in is for the metoprolol 50mg bid. Please check with the pharmacy, this islikely a mistake when they filled? Cecy Barboza APRN.TIFFANIE * Telephone Encounter - Arlet Stovall - 06/09/2023 3:21 PM EST Pt reports the prescription bottle states take 100mg tablet by mouth two times daily. If dosage is 100mg then pt should take 1 tablet? Arlet Stovall * Telephone Encounter - Sherlyn Hurst - 06/05/2023 10:23 AM EST Patient returned call. Please call back at [phone]. * Telephone Encounter - Melly Colindres RN - 06/03/2023 8:45 AM EST TC patient, left message for patient to call back and speak with a triage nurse regarding provider instructions. Melly Colindres RN * Telephone Encounter - Lisa Gomez RN - 05/30/2023 2:18 PM EST Left vm for pt to return call to nurse for provider's message re: medication. * Telephone Encounter - Bob Ojeda PA-C - 05/30/2023 12:53 PM EST Per her last OV note for HTN follow up she was taking Metoprolol 50 mg BID. This is what was refilled on 05/22/23. Bob Ojeda PA-C 05/30/2023 * Telephone Encounter - Arlet Stovall - 05/25/2023 1:02 PM EST Looks like the 50mg was sent on 05/22/2023 and prescribed to take 1 tablet by mouth two times a day which would equal the 100mg. Arlet Stovall * Telephone Encounter - Manuela Flynn - 05/25/2023 12:19 PM EST Mariella is calling Gerber Pina DO today with concern regarding Medication Problem regarding metoprolol. She states her pharmacy has 2 different scripts listed. 1 for 50 mg and 1 for 100mg. Patient has been identified by name and birthdate. Duration of symptoms: N/A Person calling: self Call patient at: at home [phone] (home) [phone] (work) Was an appointment scheduled: No Closing statement: Manuela Rico documented in this encounterLouis [facility]02-05-2024 Miscellaneous Notes* Telephone Encounter - Manuela Flynn - 05/22/2023 11:06 AM EST Pharmacy verified in [facility] Patient has been identified by name and date of : Yes Patient aware RX will be sent to pharmacy. No need to notify patient. Patient phones for refill(s): Requested Prescriptions Pending Prescriptions Disp Refills metoprolol tartrate, short acting, (LOPRESSOR) 50 mg tablet 60 tablet 5 Sig: Take 1 tablet by mouth two times a day. atorvastatin (LIPITOR) 40 mg tablet 30 tablet 5 Sig: TAKE 1 TABLET BY MOUTH ONCE DAILY AT BEDTIME FOR CHOLESTEROL Date of last office visit : 12/23/2022 Date of next office visit : Visit date not found Last 2 Encounter Wt Readings: Date: Wt: 12/23/2022 72.8 kg (160 lb 9.6 oz) 09/16/2022 74.1 kg (163 lb 6.4 oz) Not applicable Please advise. Manuela Sauer Pss documented in this encounterLouis Stokes [facility] Center10-23-2023 Miscellaneous Notes* Telephone Encounter - Trinity Deluna RN - 02/06/2023 2:29 PM EDT Medication refill requested by patient. Requested Prescriptions Pending Prescriptions Disp Refills empagliflozin (JARDIANCE) 25 mg tablet 30 tablet 0 Sig: TAKE 1 TABLET BY MOUTH ONCE DAILY IN THE MORNING Last encounter with this provider: 12/23/2022 Next appt: 02/28/2023 Trinity Deluna RN documented in this encounterLouis Stokes [facility] Center09-08-2023 Miscellaneous Notes* Telephone Encounter - Trinity Deluna RN - 12/23/2022 3:45 PM EDT Patient returned call and given update below. Trinity Deluna RN * Telephone Encounter - Trinity Deluna RN - 12/23/2022 3:36 PM EDT Patient calling and states her recent script for Lantus insulin sent to [facility] is not able to be filled and she is not sure why. Pt asking this nurse to contact pharmacy to assist her. Thisnurse spoke with pharmacy and they state they can only provide pt with a partial fill at this time,if she would like, and can provide rest of medication once supply arrives. This nurse attempted to contact pt back with this update. No answer and VM box is full. Trinity Deluna RN documented in this encounterLouis Stokes [facility] Center09-08-2023 Nurse Note* Gi Mae LPN - 12/23/2022 9:07 AM EDT Pt received adacel and pneumonia 20 and flu vaccines today. Tolerated well. documented in this encounterLouis Stokes [facility] Center09-08-2023 History of Present illness Narrative* Jamaica Mireles APRN.CAT CRACKER OPERATOR - 12/23/2022 7:20 AM EDT Chief Complaint Patient presents with: Physical HPI Mariella Ramirez is a 52 year old female who presents here today for Above Complaints. Mariella is an established patient of Dr. Pina, and myself. Concerns today.. DM--- Patient reports she is feeling well overall in regards to diabetes A1C 8.9% yesterday Patient's last HgA1C was 15.3 in August. Current regimen: lantus 30 units at bedtime, and humalog 6 units with meals. Was taken off of all oral DM medication (jardiacne, metformin, glipizide) during hospitalization in August due to not tolerating well and wanting to make regimen more simple. Pt does report jardiance worked well for her in the past but quit taking due to no appetite. Metformin caused GI upset. Does not want to restart this. Tolerating well: Yes Med compliance: see above. Checking sugars: Yes, reports 150-160 after meals. Signs of hypoglycemia?: no Diet: reports only eating about 1 meal per day. So only taking insulin when she eats and at bedtime. Denies polyuria, polydipsia, numbness, tingling or pain in extremities, new or unusual visual symptoms, unintended weight changes, lightheadedness/dizziness, bowel changes/loose stools, chest pain ordyspnea HTN-- She states compliant with current blood pressure medication(s): metoprolol and lisinopril. She doescheck BP at home. Average home readings: 120s/70s. She denies chest pain, shortness of breath, palpitations, dizziness, leg edema, headaches, or vision changes. Last 14 Encounter BP Readings: Date: BP: 12/23/2022 138/78 09/16/2022 138/84 08/25/2022 140/78 01/06/2022 120/70 01/05/2022 122/70 09/10/2021 120/82 05/24/2021 136/86 04/30/2021 179/87 02/22/2021 134/78 11/11/2020 120/70 07/17/2020 142/84 10/09/2019 132/82 06/01/2019 168/88 06/12/2018 128/78 Calluses on hands from gripping hose at work. R> L. To 3-4 fingers. Was hospitalized in August due to cardiac stent replacement. Is now on daily brilinta. Stable. Denies any CP, SOB, or palpations since this hospitalization. HM--- Willing to get flu shot, pneumonia shot, and tetanus shot today . Due for mammogram- ordered prior. Past medical history, appointments, medications, allergies reviewed. 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 PAST SURGICAL HISTORY OF 1995 Bilateral removal of breast tissue in axilla PAST SURGICAL HISTORY OF unsure R foot surgery - fusion vs bunionectomy, patient unsure Family History FAMILY HISTORY Problem Relation Age of Onset Cancer Father PROSTATE Alcohol/Drug Father Diabetes Father Hypertension Father Stroke Father Prostate Cancer Father Breast Cancer Maternal Grandmother Diabetes Paternal Uncle Stroke Paternal Uncle Breast Cancer Other MATERNAL COUSINS X2 Hypertension Other NIECE No Ocular Disease No Family History Patient Allergies ALLERGIES Allergen Reactions Steffi Inhibitors Cough Latex Rash Current Medications Current Outpatient Medications on File Prior to Visit Medication Sig insulin glargine (LANTUS SOLOSTAR U-100 INSULIN) 100 unit/mL (3 mL) Inject 30 Units subcutaneously daily at bedtime. BRILINTA 90 mg tablet Take 1 tablet by mouth twice daily. atorvastatin (LIPITOR) 40 mg tablet TAKE 1 TABLET BY MOUTH ONCE DAILY AT BEDTIME FOR CHOLESTEROL metoprolol tartrate, short acting, (LOPRESSOR) 50 mg tablet Take 1 tablet by mouth twice daily. pantoprazole DR (PROTONIX) 40 mg tablet Take 1 tablet by mouth once daily. glipiZIDE (GLUCOTROL) 5 mg tablet TAKE 1 TABLET BY MOUTH TWICE DAILY BEFORE MEALS metFORMIN ER (GLUCOPHAGE XR) 500 mg 24 hr tablet Take 2 tablets by mouth twice daily with meals. empagliflozin (JARDIANCE) 25 mg tablet TAKE 1 TABLET BY MOUTH ONCE DAILY IN THE MORNING insulin lispro (HUMALOG KWIKPEN INSULIN) 100 unit/mL 12 units 3 times daily lisinopril (ZESTRIL, PRINIVIL) 20 mg tablet Take 1 tablet by mouth once daily. losartan (COZAAR) 50 mg tablet Take 1 tablet by mouth once daily. blood sugar diagnostic (BLOOD GLUCOSE TEST) test strip Test blood sugar(s) one times daily. Dx: 250.00. Insulin: No BABY ASPIRIN ORAL Take by mouth. insulin glargine (BASAGLAR KWIKPEN U-100 INSULIN) 100 unit/mL (3 mL) Inject 16 Units subcutaneouslydaily at bedtime. terbinafine HCl (LAMISIL) 250 mg tablet Take 1 tablet by mouth once daily. polyethylene glycol 3350 (MIRALAX, GLYCOLAX) 17 gram/dose powder Take 17 g by mouth once daily. Take one (1) capful in 8oz of liquid each day. promethazine (PHENERGAN) 25 mg tablet Take 1 tablet by mouth every 6 hours as needed for Nausea/Vomiting. cholecalciferol (VITAMIN D-3) 5,000 unit tab Take 1 tablet by mouth once daily. Cholecalciferol, Vitamin D3, (DIALYVITE VITAMIN D) 125 mcg (5,000 unit) cap Take 1 capsule by mouthonce daily. Insulin Hume, Disposable, (BD ULTRA-FINE SONU PEN NEEDLE) 32 gauge x ndle 2Use one needle for each dose. 1/day. Lancets lancets Test blood sugar(s) 1 times daily. Dx: DM2. Insulin: No blood sugar diagnostic (RELION PRIME TEST STRIPS) test strip Diabetes mellitus type 2, non insulin dependent, testing 1x/day, Use as instructed alogliptin 25 mg tab TAKE ONE TABLET BY MOUTH ONCE DAILY ONETOUCH ULTRA TEST test strip USE TO CHECK GLUCOSE ONCE DAILY Blood-Glucose Meter (ONE TOUCH ULTRA 2) monitoring kit 1 Each as needed. One Touch Meter Kit Diagnosis: Diabetes Mellitus ibuprofen 800 mg tablet Take 1 tablet by mouth every 8 hours as needed (FOR PAIN. TAKE WITH FOOD). MULTI-VITAMIN ORAL Take by mouth. No current facility-administered medications on file prior to visit. Social History Social History Tobacco Use Smoking status: Never Smokeless tobacco: Never Substance Use Topics Alcohol use: No Drug use: No REVIEW OF SYSTEMS: as above Reviewed relevant PMHx, PSHx, Social Hx, current medications and allergies. Review of Symptoms REVIEW OF SYSTEMS See HPI. EXAM: BP 138/78 (BP Site: Left Arm, BP Position: Sitting, BP Cuff Size: Regular Adult) Pulse 62 Resp 12 Ht 170 cm (5' 6.93) Wt 72.8 kg (160 lb 9.6 oz) LMP 12/30/2021 (Approximate) BMI 25.21 kg/m General Appearance: Well appearing, alert, in no acute distress, well-hydrated, well nourished.. Skin: Skin color, texture, turgor normal, no suspicious rashes or lesions. Head: Normocephalic, no masses, lesions, tenderness or abnormalities. Lungs: Lungs clear to auscultation. No wheezing, rhonchi, rales.. Heart: RRR without murmur, gallop, or rubs. No ectopy. Abdomen: Normal abdominal exam, Abdomen soft, non-tender. Bowel sounds normal. No masses, organomegaly. Neurologic: Gait normal. Reflexes normal and symmetric. Sensation grossly intact.. Health Maintenance List HEPATITIS B(1 of 3 - 3-dose series) Never done PNEUMOCOCCAL(2 - PCV) due on 04/13/2013 DILATED RETINAL EXAM due on 03/29/2019 MAMMOGRAM due on 12/12/2020 COVID-19 VACCINE(3 - Pfizer series) due on 12/17/2021 SHINGRIX VACCINE(1 of 2) Never done DEPRESSION ASSESSMENT Never done DTAP,TDAP,TD(2 - Td or Tdap) due on 07/04/2022 DIABETIC FOOT EXAM due on 09/10/2022 BP CONTROLLED (<130/80) due on 09/10/2022 LDL CHOLESTEROL due on 09/20/2022 INFLUENZA(1) due on 12/16/2022 HBA1C due on 03/23/2023 ANNUAL PCP TEAM CHRONIC DISEASE VISIT due on 08/26/2023 URINE ALBUMIN:CREATININE RATIO due on 08/27/2023 COLORECTAL CANCER SCREENING due on 04/30/2026 PAP TESTING due on 01/06/2027 HPV TESTING due on 01/06/2027 HEPATITIS C SCREENING Completed HIV SCREENING Completed ASSESSMENT/PLAN: 1. Type 2 diabetes mellitus without complication, with long-term current use of insulin (HCC) - ICD9: 250.00, V58.67, ICD10: E11.9, Z79.4 (primary diagnosis) - Uncontrolled - Improving control - Continue current medications - Start/restart empagliflozin (Jardiance) daily. - stay off of metformin and glipizide at this time. - Increase mealtime insulin from 6 to 12 units (as previously prescribed) slowly as needed based onblood sugars. Try to eat 2-3 small meals per day vs one large meal. - Statin prescribed - atorvastatin - Blood glucose monitoring on a three times daily, before meals, and before bedtime schedule - Counseled on healthy diet and regular exercise - Discussed need for and benefit of weight loss. BMI 25.21 kg/(m^2) - Follow up in 3 months, sooner should any other issues arise. - EMPAGLIFLOZIN 25 MG TABLET - INSULIN GLARGINE (U-100) 100 UNIT/ML (3 ML) SUBCUTANEOUS PEN - HGB A1C 2. Encounter for immunization - ICD9: V03.89, ICD10: Z23 - PNEUMOCOCCAL VACCINE (PREVNAR 20) - TDAP VACCINE, AGE 7+ YR (ADACEL, BOOSTRIX) - INFLUENZA VACCINE, AGE 6 MO - 64 YR, QUADRIVALENT (AFLURIA, FLULAVAL, FLUZONE) 3. Essential hypertension - ICD9: 401.9, ICD10: I10 - Controlled - Home blood pressure readings controlled - Continue current medications - Recommend home blood pressure monitoring, to bring results to next visit - Encouraged sodium restriction, DASH or Mediterranean diet - Recommend regular aerobic exercise - Discussed need for and benefit of weight loss. BMI 25.21 kg/(m^2) - Follow up in 3 months for hypertension visit 4. Mixed hyperlipidemia - ICD9: 272.2, ICD10: E78.2 - Control undetermined, due for labs - Continue current medications - Counseled on healthy diet and regular exercise - LIPID PANEL BASIC 5. Overweight (BMI 25.0-29.9) - ICD9: 278.02, ICD10: E66.3 Stable - Behavioral intervention, - Eat well program, and - Continue current medications 6. Wellness examination - ICD9: V70.0, ICD10: Z00.00 - Counseled on healthy diet and regular exercise - Calcium intake with supplements or by diet of 1000 mg/day for under 50, 1200- 1500 mg/day for 50+ - Discussed need and benefit for weight loss. BMI 25.21 kg/(m^2) - Mammogram ordered - exam recommended once yearly - Depression screening tool completed and reviewed with patient. Based on score and interview, patient is not at risk for depression and recommended no further intervention at this time. - Follow up for annual exam in one year 7. Callus of hand - ICD9: 700, ICD10: L84 Soak hand in warm, soapy water to soften and then rub callus down with nail file. Moisturize daily. Discussed padding or brace to decrease rubbing at work if able. RTO in 3 months, sooner if needed. Prescription instructions reviewed with patient as applicable. Potential red flag symptoms discussed with the patient. Reviewed appropriate action plan to take if red flag symptoms occur. Patient agreeable to treatment plan. Jamaica Marsh APRN.CAT CRACKER OPERATOR [address] [place] [address] documented in this encounterLouis Stokes Cleveland [facility]09-07-2023 Miscellaneous Notes* Telephone Encounter - Xiomy Gutiérrez RN - 12/22/2022 9:14 AM EDT Call placed to patient and notified lab orders placed. Verified appointment time for 12/23/2022 at 720 am. Xiomy Gutiérrez RN * Telephone Encounter - Cecy Barboza APRN.CNP - 12/22/2022 8:57 AM EDT Lab orders placed. Cecy Barboza APRN.TIFFANIE * Telephone Encounter - Abiola Agee RN - 12/22/2022 8:22 AM EDT Pt called and is notified of providers message and instructions. Pt voices understanding. She is scheduled with Feil Mireles [facility] on Monday morning at 720 am, set up as physical and DM f/u. Please call Pt once labs are ordered and if she does not answer she asks that we leave a message. Abiola Agee RN * Telephone Encounter - rAlet Stovall - 12/22/2022 8:11 AM EDT Attempted to contact pt with no answer. Unable to leave VM. Will need to try again. Arlet Stovall * Telephone Encounter - Gerber Pina DO - 12/21/2022 8:07 PM EDT Patient needs appt for diabetes and blood work. Please schedule with [facility]. Sent new rx with higher amount of pens for the Lantus. Unsure what her insurance will cover monthly Gerber Pina DO The following approved medication requests have been transmitted electronically. Requested Prescriptions Signed Prescriptions Disp Refills insulin glargine (LANTUS SOLOSTAR U-100 INSULIN) 100 unit/mL (3 mL) 10 Each 3 Sig: Inject 30 Units subcutaneously daily at bedtime. Authorizing Provider: GERBER PINA DO * Telephone Encounter - Xiomy Gutiérrez RN - 12/20/2022 9:00 AM EDT Patient calls to request refill of Lantus. [facility] to [facility]. Refills on file. Too Soon to refill. Next refill: 12/29/2022. Patient reports she has 1 or 2 doses of Lantus 30 units left and then will be out. FBS has been running around 80. Patient works third shift and eats once a day in the morning. Patient takes Lantus 30 units with breakfast and reports BS after breakfast ranges from 150 to 160. After breakfast patient sleeps majority of the day. Patient asking what she should do since she will be out of Lantus. Patient has Humalog that she is to take 6 units with meals but reports she usually only takes 1 or 2 doses a day but sometimes not even that. Just depends if she eats a meal and usually it is only one meal a day. Last HGBA1C 15.3 on 08/26/2022. Xiomy Gutiérrez RN documented in this encounterLouis Stokes [facility]06-20-2023 Miscellaneous Notes* Telephone Encounter - Sherlyn Flores LPN - 10/04/2022 4:38 PM EDT Pt. informed. * Telephone Encounter - Bob Ojeda PA-C - 10/04/2022 3:11 PM EDT I don't see where she is on a diuretic BP medication that can help with swelling. I would recommend keeping her f/u on 10/28 to recheck BP and discuss BP medications. I see where shewas previously on lisinopril, losaratn and metoprolol, but then decrease to just the metoprolol. Itwill help if she can bring her BP readings with her to her visit. Otherwise if swelling is worsening, would recommend a sooner evaluation. If she develops low leg pain, swelling in one leg, chest pain, or SOB to seek care immediately. Bob Ojeda PA-C 10/04/2022 * Telephone Encounter - Jacqui Jama LPN - 10/04/2022 2:43 PM EDT Pt called to check and see if not taking the BP medications could this be why she is having some swelling thru out her whole body, more in the ankles. If she needs to be on her BP meds that are listed she will need to have refills sent to the pharmacy. [facility]acy [facility]. Jacqui Jama LPN documented in this encounterLouis Stokes [facility]06-20-2023 Miscellaneous Notes* Telephone Encounter - Sherlyn Flores LPN - 10/04/2022 4:35 PM EDT Pt. has Appt 10/27/22. * Telephone Encounter - Brittaney Rodgers - 10/03/2022 8:51 AM EDT [employer] calls to notify the provider that the patient was in the hospital due to her diabetes. They attempted to contact the patient in regards to diabetes control education through their case management program and have been unsuccessful. documented in this encounterLouis Stokes [facility]06-20-2023 Miscellaneous Notes* Telephone Encounter - Bob Ojeda PA-C - 10/04/2022 11:24 AM EDT The following approved medication requests have been transmitted electronically. Requested Prescriptions Signed Prescriptions Disp Refills BRILINTA 90 mg tablet 60 tablet 1 Sig: Take 1 tablet by mouth twice daily. Authorizing Provider: BOB OJEDA atorvastatin (LIPITOR) 40 mg tablet 30 tablet 5 Sig: TAKE 1 TABLET BY MOUTH ONCE DAILY AT BEDTIME FOR CHOLESTEROL Authorizing Provider: BOB OJEDA metoprolol tartrate, short acting, (LOPRESSOR) 50 mg tablet 60 tablet 5 Sig: Take 1 tablet by mouth twice daily. Authorizing Provider: BOB OJEDA insulin glargine (LANTUS SOLOSTAR U-100 INSULIN) 100 unit/mL (3 mL) 5 Each 5 Sig: Inject 30 Units subcutaneously daily at bedtime. Authorizing Provider: BOB OJEDA PA-C * Telephone Encounter - Jacqui Jama GOLD CHARMER - 10/04/2022 9:46 AM EDT Pt to update her med list and request refills Pt was in the hospital last month and they d/c medications below and pt is now only on 4 medications and some vitamins. D/C Glipizide, Metformin, Jardiance, Lisinopril, Losartan, Baby Asa, Basaglar, Lamsil, Phenergan,Cancel1 of the Vit D, Ibuprofen, alogliptin. Refill Patient has been identified by name and date of : Yes, Provider Dr. Pina Date 10/04/22 Time9:54 am Patient phones for refill(s): Requested Prescriptions Pending Prescriptions Disp Refills BRILINTA 90 mg tablet 60 tablet 0 Sig: Take 1 tablet by mouth twice daily. atorvastatin (LIPITOR) 40 mg tablet 30 tablet 0 Sig: TAKE 1 TABLET BY MOUTH ONCE DAILY AT BEDTIME FOR CHOLESTEROL metoprolol tartrate, short acting, (LOPRESSOR) 50 mg tablet 60 tablet 5 Sig: Take 1 tablet by mouth twice daily. insulin glargine (LANTUS SOLOSTAR U-100 INSULIN) 100 unit/mL (3 mL) Sig: Inject 30 Units subcutaneously daily at bedtime. Date of last office visit in primary care: 08/25/22 next apt 02/28/23. Pt is trying to get a sooner apt booked. Last 2 Encounter Wt Readings: Date: Wt: 09/16/2022 74.1 kg (163 lb 6.4 oz) 08/25/2022 65.3 kg (144 lb) Previous labs/tests for medication: Cholesterol: HDL Cholesterol (mg/dL) Date Value 09/20/2021 62 12/10/2020 41 LDL Cholesterol (mg/dL) Date Value 09/20/2021 78 12/10/2020 49 ALT (U/L) Date Value 08/26/2022 37 09/11/2020 22 Non HDL Cholesterol (mg/dL) Date Value 09/20/2021 90 12/10/2020 60 Blood Pressure: BUN (mg/dL) Date Value 08/26/2022 16 09/11/2020 14 Sodium (mmol/L) Date Value 08/26/2022 126 09/11/2020 137 Last 1 Encounter BP Readings: Date: BP: 09/16/2022 138/84 Thank you. Jacqui Jama LPN documented in this encounterLouis Stokes [facility]06-02-2023 Instructions* Patient Instructions* Neli Parker APRN.CNP - 09/16/2022 10:35 AM EDT ASSESSMENT/PLAN: 1. Visit for suture removal - ICD9: V58.32, ICD10: Z48.02 - 2 sutures removed from right eyelid without incident. Patient tolerated procedure well. Neli Parker APRN.CNP documented in this encounterLouis Stokes [facility]06-02-2023 History of Present illness Narrative* Neli Parker APRN.CNP - 09/16/2022 10:32 AM EDT Images from the original note were not included. Subjective Suture Removal Mariella Ramirez is a 52 year old female who presents for suture removal of 2 sutures in right upper eyelid that were placed in the ER 6 days ago. Wound is well healed, she denies any bleeding or pain or signs of infection at the site. Review of Systems Constitutional: Negative for chills and fever. Eyes: Negative for blurred vision, double vision, pain and discharge. Skin: Negative for itching and rash. Objective Physical Exam Vitals and nursing note reviewed. Constitutional: Appearance: Normal appearance. Eyes: Skin: General: Skin is warm and dry. Findings: No bruising, erythema or rash. Neurological: Mental Status: She is alert. ASSESSMENT/PLAN: 1. Visit for suture removal - ICD9: V58.32, ICD10: Z48.02 - 2 sutures removed from right eyelid without incident. Patient tolerated procedure well. Neli Parker APRN.CNP documented in this encounterLouis Stokes [facility]05-18-2023 Evaluation note* Diagnosis Onset Date Resolution Status Admit Date Atherosclerotic heart diseas [place] of [place] coronary artery without angina pectoris acute November 222024 7:59am HFrEF (heart failure with reduced ejection fraction) acute Aug[place] 2024 7:59am Stented coronary artery September 01, 2022 acute November 22, 2024 7:59am Dyslipidemia chronic November 22, 2024 7:59am Essential hypertension chronic 2024 7:59am [facility] [employer] Work Phone: [phone] Instructions* Patient Instructions* Lindsey Fatima APRN.CNP - 08/25/2022 7:14 PM EDT Complete labs Continue current medications Follow up in 6 months for routine check up documented in this encounterLouis Stokes [facility]05-11-2023 History of Present illness Narrative* Lindsey Fatima APRN.CNP - 08/25/2022 7:06 PM EDT Chief Complaint Patient presents with: Follow Up HPI Mariella Ramirez is a 52 year old female who presents here today for Above Complaints.. Patient presents for diabetes follow up. Patient reports she knew she was overdo for a visit for her diabetes and that is what she came in for today. Past medical history, appointments, medications, allergies reviewed. 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 PAST SURGICAL HISTORY OF 1995 Bilateral removal of breast tissue in axilla PAST SURGICAL HISTORY OF unsure R foot surgery - fusion vs bunionectomy, patient unsure Family History FAMILY HISTORY Problem Relation Age of Onset Cancer Father PROSTATE Alcohol/Drug Father Diabetes Father Hypertension Father Stroke Father Prostate Cancer Father Breast Cancer Maternal Grandmother Diabetes Paternal Uncle Stroke Paternal Uncle Breast Cancer Other MATERNAL COUSINS X2 Hypertension Other NIECE No Ocular Disease No Family History Patient Allergies ALLERGIES Allergen Reactions Steffi Inhibitors Cough Latex Rash Current Medications Current Outpatient Medications on File Prior to Visit Medication Sig BRILINTA 90 mg tablet Take 1 tablet by mouth twice daily glipiZIDE (GLUCOTROL) 5 mg tablet TAKE 1 TABLET BY MOUTH TWICE DAILY BEFORE MEALS atorvastatin (LIPITOR) 40 mg tablet TAKE 1 TABLET BY MOUTH ONCE DAILY AT BEDTIME FOR CHOLESTEROL metFORMIN ER (GLUCOPHAGE XR) 500 mg 24 hr tablet Take 2 tablets by mouth twice daily with meals. metoprolol tartrate, short acting, (LOPRESSOR) 50 mg tablet Take 1 tablet by mouth twice daily. empagliflozin (JARDIANCE) 25 mg tablet TAKE 1 TABLET BY MOUTH ONCE DAILY IN THE MORNING insulin lispro (HUMALOG KWIKPEN INSULIN) 100 unit/mL 12 units 3 times daily lisinopril (ZESTRIL, PRINIVIL) 20 mg tablet Take 1 tablet by mouth once daily. losartan (COZAAR) 50 mg tablet Take 1 tablet by mouth once daily. blood sugar diagnostic (BLOOD GLUCOSE TEST) test strip Test blood sugar(s) one times daily. Dx: 250.00. Insulin: No BABY ASPIRIN ORAL Take by mouth. insulin glargine (BASAGLAR KWIKPEN U-100 INSULIN) 100 unit/mL (3 mL) Inject 16 Units subcutaneouslydaily at bedtime. terbinafine HCl (LAMISIL) 250 mg tablet Take 1 tablet by mouth once daily. polyethylene glycol 3350 (MIRALAX, GLYCOLAX) 17 gram/dose powder Take 17 g by mouth once daily. Take one (1) capful in 8oz of liquid each day. promethazine (PHENERGAN) 25 mg tablet Take 1 tablet by mouth every 6 hours as needed for Nausea/Vomiting. Insulin Hume, Disposable, (BD ULTRA-FINE SONU PEN NEEDLE) 32 gauge x 5/32 ndle 2Use one needle for each dose. 1/day. Lancets lancets Test blood sugar(s) 1 times daily. Dx: DM2. Insulin: No blood sugar diagnostic (RELION PRIME TEST STRIPS) test strip Diabetes mellitus type 2, non insulin dependent, testing 1x/day, Use as instructed alogliptin 25 mg tab TAKE ONE TABLET BY MOUTH ONCE DAILY ONETOUCH ULTRA TEST test strip USE TO CHECK GLUCOSE ONCE DAILY Blood-Glucose Meter (ONE TOUCH ULTRA 2) monitoring kit 1 Each as needed. One Touch Meter Kit Diagnosis: Diabetes Mellitus ibuprofen 800 mg tablet Take 1 tablet by mouth every 8 hours as needed (FOR PAIN. TAKE WITH FOOD). MULTI-VITAMIN ORAL Take by mouth. cholecalciferol (VITAMIN D-3) 5,000 unit tab Take 1 tablet by mouth once daily. Cholecalciferol, Vitamin D3, (DIALYVITE VITAMIN D) 125 mcg (5,000 unit) cap Take 1 capsule by mouthonce daily. No current facility-administered medications on file prior to visit. Social History Social History Tobacco Use Smoking status: Never Smokeless tobacco: Never Substance Use Topics Alcohol use: No Drug use: No Review of Symptoms REVIEW OF SYSTEMS SEE HPI EXAM: BP 140/78 Pulse 80 Resp 14 Wt 65.3 kg (144 lb) LMP 12/30/2021 (Approximate) BMI 22.55 kg/m General Appearance: Well appearing, alert, in no acute distress, well-hydrated, well nourished.. Lungs: Lungs clear to auscultation. No wheezing, rhonchi, rales.. Heart: RRR without murmur, gallop, or rubs. No ectopy. Peripheral Pulses: Normal. Neurologic: Gait normal. Reflexes normal and symmetric. Sensation grossly intact.. Health Maintenance List HEPATITIS B(1 of 3 - 3-dose series) Never done PNEUMOCOCCAL(2 - PCV) due on 04/13/2013 DILATED RETINAL EXAM due on 03/29/2019 MAMMOGRAM due on 12/12/2020 COVID-19 VACCINE(3 - Booster for Pfizer series) due on 12/17/2021 HBA1C due on 03/22/2022 SHINGRIX VACCINE(1 of 2) Never done DEPRESSION ASSESSMENT Never done DTAP,TDAP,TD(2 - Td or Tdap) due on 07/04/2022 DIABETIC FOOT EXAM due on 09/10/2022 URINE ALBUMIN:CREATININE RATIO due on 09/20/2022 LDL CHOLESTEROL due on 09/20/2022 INFLUENZA(Season Ended) due on 12/16/2022 ANNUAL PCP TEAM CHRONIC DISEASE VISIT due on 01/05/2023 BP CONTROLLED (<130/80) due on 01/06/2023 COLORECTAL CANCER SCREENING due on 04/30/2026 PAP TESTING due on 01/06/2027 HPV TESTING due on 01/06/2027 HEPATITIS C SCREENING Completed HIV SCREENING Completed ASSESSMENT/PLAN: 1. Type 2 diabetes mellitus without complication, with long-term current use of insulin (HCC) - ICD9: 250.00, V58.67, ICD10: E11.9, Z79.4 - Improving control - Continue current medications - Blood glucose monitoring on a once daily schedule - Counseled on healthy diet and regular exercise - Discussed need for and benefit of weight loss. BMI 22.55 kg/(m^2) - CBC + DIFF - COMP METABOLIC PANEL - HGB A1C - ALBUMIN/CREAT RATIO RND UR - URINALYSIS, WITH MICROSCOPIC Lindsey Fatima APRN.CAT CRACKER OPERATOR documented in this encounterLouis Stokes [facility]03-15-2023 Miscellaneous Notes* Telephone Encounter - Jairon Santacruz MA - 06/29/2022 8:56 AM EDT Patient has been identified by name and date of : Yes Requested Prescriptions Pending Prescriptions Disp Refills BRILINTA 90 mg tablet [Pharmacy Med Name: Brilinta 90 MG Oral Tablet] 60 tablet 0 Sig: Take 1 tablet by mouth twice daily RX INSTRUCTIONS: Patient aware RX will be sent to pharmacy. No need to notify patient. Patient last office visit: 01/05/22 Patient next office visit: none scheduled Jairon Santacruz MA documented in this encounterLouis Stokes Cleveland [facility] Center02-06-2023 Miscellaneous Notes* Telephone Encounter - Jacqui Jama LPN - 05/23/2022 3:46 PM EST Spoke with pt and information listed below given. Pt verbalizes understanding. Apt booked. Jacqui Jama LPN * Telephone Encounter - Trinity Rico - 05/20/2022 11:21 AM EST 2 nd attempt left message to return call and schedule med review with PCP care team. Unable to reach letter also created and mailed out. * Telephone Encounter - HENRY Thompson - 05/18/2022 2:37 PM EST 1st attempt: LVM for patient to schedule follow up with PCP team * Telephone Encounter - Roscoe Paiz LPN - 05/17/2022 11:57 AM EST Please assist pt with scheduling follow up appt with PCP team (Dr. Pina, [place] Sam.) * Telephone Encounter - Kirsten Fonseca APRN.CNP - 05/16/2022 7:56 PM EST Script sent. Due for an appointment with primary team. Please let patient know. * Telephone Encounter - Chayito Velásquez Ma - 05/16/2022 6:48 PM EST Last office visit: 01/05/22 F/u scheduled: none Chayito Velásquez Ma documented in this encounterLouis Stokes Cleveland [facility] Center02-06-2023 Miscellaneous Notes* Telephone Encounter - Chayito Velásquez Ma - 05/23/2022 12:06 PM EST Last office visit: 01/05/22 F/u scheduled: none Chayito Velásquez Ma documented in this encounterLouis Stokes Cleveland [facility] Center12-15-2022 Miscellaneous Notes* Telephone Encounter - Yoel Morin LPN - 2022 1:33 PM EST Pt requesting refills. Advised pt rx's were refilled 03/21/22. Pt advises she stopped at [facility] andthey advised that they didn't have anything for her. Spoke with Yasmin at [facility]. States they do have record of refills and will get this ready for pt. Was either too soon to refill when they got order or was re shelved yesterday. Pt notified of same. Yoel Morin LPN documented in this encounterLouis Stokes Cleveland [facility] Center12-05-2022 Miscellaneous Notes* Telephone Encounter - Wendy Ortega LPN - 03/21/2022 1:59 PM EST Patient phones requesting refills as follows: Requested Prescriptions Pending Prescriptions Disp Refills atorvastatin (LIPITOR) 40 mg tablet [Pharmacy Med Name: Atorvastatin Calcium 40 MG Oral Tablet] 30 tablet 0 Sig: TAKE 1 TABLET BY MOUTH ONCE DAILY AT BEDTIME FOR CHOLESTEROL CARLOS-01/05/22 Labs-01/05/22 NOV-none med filled 09/10/21 Please review and advise. Wendy Ortega LPN documented in this encounterLouis Stokes Cleveland Va Medical Center12-03-2022 Miscellaneous Notes* Telephone Encounter - Roscoe Paiz LPN - 03/19/2022 10:33 AM EST Patient phones requesting refills as follows: Requested Prescriptions Pending Prescriptions Disp Refills glipiZIDE (GLUCOTROL) 5 mg tablet [Pharmacy Med Name: glipiZIDE 5 MG Oral Tablet] 60 tablet 0 Sig: TAKE 1 TABLET BY MOUTH TWICE DAILY BEFORE MEALS Please review and advise. Roscoe Paiz LPN documented in this encounterLouis Stokes Cleveland [facility] Center11-21-2022 Miscellaneous Notes* Telephone Encounter - Chayito Velásquez Ma - 03/07/2022 7:25 PM EST Last office visit: 01/05/22 F/u scheduled: none Chayito Velásquez Ma documented in this encounterLouis Stokes [facility] Center10-13-2022 Miscellaneous Notes* Telephone Encounter - Manuela Green - 01/27/2022 11:12 AM EDT Patient has been identified by name and date of : Yes Last office visit in this department: 01/05/2022 Labs-01/05/22 NOV-05/18/22 med filled 09/10/21 RX INSTRUCTIONS: Patient aware RX will be sent to pharmacy. No need to notify patient. Patient phones requesting refills as follows: Requested Prescriptions Pending Prescriptions Disp Refills metFORMIN ER (GLUCOPHAGE XR) 500 mg 24 hr tablet 360 tablet 0 Sig: Take 2 tablets by mouth twice daily with meals. Please review and advise. Manuela Green documented in this encounterLouis Stokes Cleveland [facility] Center09-23-2022 Miscellaneous Notes* Telephone Encounter - Arlet Mar Ma - 01/07/2022 8:36 AM EDT Pt informed, verbalized understanding. Arlet Mar Ma * Telephone Encounter - Cecy Barboza APRN.CAT CRACKER OPERATOR - 01/06/2022 6:12 PM EDT Please let Mariella know that her pelvic ultrasound looks great, no abnormalities. Cecy Barboza APRN.CNP documented in this encounterLouis Stokes Cleveland [facility] Center09-22-2022 Miscellaneous Notes* Telephone Encounter - Saige Solis Cma - 01/06/2022 2:55 PM EDT Patient notified and verbalized understanding Saige Solis Cma * Telephone Encounter - Jamaica Marsh APRN.CNP - 01/06/2022 2:36 PM EDT Please call patient and let her know that blood work results look good. Iron levels are normal. No alarming blood levels. Kidney function remains stable. Thank you, [place] Marsh APRN.CNP documented in this encounterLouis Stokes Cleveland [facility] Center09-22-2022 History of Present illness Narrative* Ariadna Ivey MD - 01/06/2022 9:14 AM EDT Service Correspondent offered: Patient declines. Mariella Ramirez is a 51 year old female who presents irregular menstrual cycle. Patient reports typical menses are every 28 days with moderate flow. Patient states she just recently ended her cycle on December 16 and then began another cycle on December 30. Patient states her flow is now light. Patient states she typically uses a heavy pad and changes it approximately every 2 hours. Patient reports only mild hot flashes and night sweats. Patient states she recently got and was considering and wanted to know what her risks would be. Patient reports no history of abnormal Paps,does report gets routine mammograms. She states that her irregular bleeding has only happened 1 time and she offers no other concerns today. OB History T3 L3 SAB1 IAB0 Ectopic0 Multiple0 Live Births0 Federal Law Clerk History LMP: 04/22/2021 (Approximate), Having periods Age at Menarche: Age at First : Age at Menopause: Federal Law Clerk History Comments: Sexual Activity: Yes; Male; vasectomy Contraception: No contraception data on record PAST MEDICAL HISTORY Diagnosis Date Constipation Diabetes mellitus without mention of complication Diabetes mellitus, gestational with last Hyperlipemia Hypertension Uncontrolled type 2 DM with proteinuria or microalbuminuria 07/04/2012 PAST SURGICAL HISTORY Procedure Laterality Date COLONOSCOPY FLX DX W/COLLJ SPEC WHEN PFRMD 12/02/15 Colonoscopy (MAC) CORONARY STENT EA VESSEL 06/2020 DILATION & CURETTAGE DX&/THER NONOBSTETRIC Dilation & curettage PAST SURGICAL HISTORY OF 1995 Bilateral removal of breast tissue in axilla PAST SURGICAL HISTORY OF unsure R foot surgery - fusion vs bunionectomy, patient unsure FAMILY HISTORY Problem Relation Age of Onset Cancer Father PROSTATE Alcohol/Drug Father Diabetes Father Hypertension Father Stroke Father Prostate Cancer Father Breast Cancer Maternal Grandmother Diabetes Paternal Uncle Stroke Paternal Uncle Breast Cancer Other MATERNAL COUSINS X2 Hypertension Other NIECE No Ocular Disease No Family History Social History Tobacco Use Smoking status: Never Smokeless tobacco: Never Substance Use Topics Alcohol use: No Drug use: No Current Outpatient Medications Medication Sig BRILINTA 90 mg tablet Take 1 tablet by mouth twice daily. metoprolol tartrate, short acting, (LOPRESSOR) 50 mg tablet Take 1 tablet by mouth twice daily. empagliflozin (JARDIANCE) 25 mg tablet TAKE 1 TABLET BY MOUTH ONCE DAILY IN THE MORNING insulin lispro (HUMALOG KWIKPEN INSULIN) 100 unit/mL 12 units 3 times daily atorvastatin (LIPITOR) 40 mg tablet Take 1 tablet by mouth daily at bedtime. For cholesterol. lisinopril (ZESTRIL, PRINIVIL) 20 mg tablet Take 1 tablet by mouth once daily. losartan (COZAAR) 50 mg tablet Take 1 tablet by mouth once daily. blood sugar diagnostic (BLOOD GLUCOSE TEST) test strip Test blood sugar(s) one times daily. Dx: 250.00. Insulin: No glipiZIDE (GLUCOTROL) 5 mg tablet Take 1 tablet by mouth twice daily before meals. metFORMIN ER (GLUCOPHAGE XR) 500 mg 24 hr tablet Take 2 tablets by mouth twice daily with meals. BABY ASPIRIN ORAL Take by mouth. insulin glargine (BASAGLAR KWIKPEN U-100 INSULIN) 100 unit/mL (3 mL) Inject 16 Units subcutaneouslydaily at bedtime. terbinafine HCl (LAMISIL) 250 mg tablet Take 1 tablet by mouth once daily. polyethylene glycol 3350 (MIRALAX, GLYCOLAX) 17 gram/dose powder Take 17 g by mouth once daily. Take one (1) capful in 8oz of liquid each day. promethazine (PHENERGAN) 25 mg tablet Take 1 tablet by mouth every 6 hours as needed for Nausea/Vomiting. cholecalciferol (VITAMIN D-3) 5,000 unit tab Take 1 tablet by mouth once daily. Cholecalciferol, Vitamin D3, (DIALYVITE VITAMIN D) 125 mcg (5,000 unit) cap Take 1 capsule by mouthonce daily. Insulin Hume, Disposable, (BD ULTRA-FINE SONU PEN NEEDLE) 32 gauge x /32 ndle 2Use one needle for each dose. 1/day. Lancets lancets Test blood sugar(s) 1 times daily. Dx: DM2. Insulin: No blood sugar diagnostic (RELION PRIME TEST STRIPS) test strip Diabetes mellitus type 2, non insulin dependent, testing 1x/day, Use as instructed alogliptin 25 mg tab TAKE ONE TABLET BY MOUTH ONCE DAILY ONETOUCH ULTRA TEST test strip USE TO CHECK GLUCOSE ONCE DAILY Blood-Glucose Meter (ONE TOUCH ULTRA 2) monitoring kit 1 Each as needed. One Touch Meter Kit Diagnosis: Diabetes Mellitus ibuprofen 800 mg tablet Take 1 tablet by mouth every 8 hours as needed (FOR PAIN. TAKE WITH FOOD). MULTI-VITAMIN ORAL Take by mouth. No current facility-administered medications for this visit. Allergies As of Date: 01/06/2022 Allergen Noted Reaction STEFFI INHIBITORS 01/29/2014 Cough LATEX 09/21/2011 Rash Fully Assessed 01/05/2022 REVIEW OF SYSTEMS Abdomen: no pain Bladder: No dysuria, Expanded ROS: GENERAL: Negative for fever Allergies and current medication updated:Yes EXAM: BP 120/70 Wt 155 lb (70.3kg) LMP 12/30/2021 GENERAL: pleasant, female in no apparent distress HEENT: Normocephalic and atraumatic NECK: full range of motion DERMATOLOGY: Normal, without lesions, non-icteric, and non-hirsute ABDOMEN: soft, non-tender, and no masses PELVIC: external genitalia normal, normal Bartholin's glands, urethra, [place]'s glands, no vulvar lesions, no cervical lesions, good vaginal support, physiologic discharge present, normal appearing perineal body and perianal region BIMANUAL: uterus normal size, shape and consistency, no adnexal masses, and non-tender NEURO: alert and oriented x3,exam grossly non-focal EXTREMITIES: normal ASSESSMENT AND PLAN: Encounter Diagnosis ICD-10-CM 1. Abnormal uterine bleeding N93.9 2. Perimenopausal N95.1 3. Screening for cervical cancer Z12.4 PAP FLUID CERVICAL SCREENING 4. Encounter for screening for human papillomavirus (HPV) Z11.51 PAP FLUID CERVICAL SCREENING 5. I reviewed with patient that 1 irregular cycle is not concerning at this point due to likely hormonal changes due to perimenopausal status. I discussed that if her bleeding continues to occur at irregular cycles are every 2 weeks or she is bleeding heavy with large clots that is more concerning and I would recommend an endometrial biopsy at that time. Her pelvic ultrasound from radiology is still pending today I did review the images myself endometrium appears to be normal and thin.However we will wait for the official results to return. Reviewed previous visit notes from primary care including labs. I discussed with the patient that at her age would be very dangerous and couldbe life-threatening we discussed increased risk for chromosomal abnormalities and not carrying to term for not carrying to viability. Patient is already diabetic we reviewed diabetes in as well as risk for elevated blood pressure. I discussed with the patient hormonal therapy versus expectant management. Recommendation would be for Mirena IUD information was given to the patient. Medical Decision Making: Problems: Moderate: New problem with uncertain prognosis Data: Unique source(s) for external note(s) reviewed: 1 Unique test result(s) reviewed: 1 Unique test(s) ordered: 1 Risk: Low: Low risk from testing/treatment Medical Decision Making Level: 4 - Moderate Ariadna Mejia MD documented in this encounterLouis Stokes [facility]09-22-2022 History of Present illness Narrative* Esperanza Xiao, [facility] - 01/06/2022 8:30 AM EDT Radiology Service Progress Note PATIENT NAME: Mariella Ramirez DATE OF SERVICE: January 06, 2022 TIME: 11:23 AM PATIENT IDENTITY VERIFICATION COMPLETED USING TWO (2) IDENTIFIERS: Name and Date of confirmedby patient verbally. FALL SCREENING: Has the patient had 2 falls in the last year or 1 fall with injury or currently using an Ambulatory Assistive Device (Walker, Cane, Wheelchair, Crutches, etc.)? No PATIENT GENDER DATA: Female. status: : No status: NO. 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 Mariella is an established patient of Dr. Yovani DO. Mariella is a new patient to me today. Concerns today... Abnormal vaginal bleeding --- Reports menstrual cycle x 2 this month. On the and again on the . Lasting about 3-4 days each. Reports much heavier than normal cycles. Denies any abnormalities in menstrual cycles prior. Some clots in bleeding. Denies any dizziness or lightheadedness from blood loss. Does feel fatigued. Was taking iron supplement -- not taking for the past month No hx of fibroids that she is aware of. Overdue with PAP/HPV testing. 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 Has 3 children of her own but new does not have any children and would like to try for one. Just started trying. Would like to speak with infertility specialist due to ageand options. Past medical history, appointments, medications, allergies reviewed. 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 07/04/2012 Previous Surgical History PAST SURGICAL HISTORY Procedure Laterality Date COLONOSCOPY FLX DX W/COLLJ SPEC WHEN PFRMD 12/02/15 Colonoscopy (MAC) CORONARY STENT EA VESSEL 06/2020 DILATION & CURETTAGE DX&/THER NONOBSTETRIC Dilation & curettage PAST SURGICAL HISTORY OF 1995 Bilateral removal of breast tissue in axilla PAST SURGICAL HISTORY OF unsure R foot surgery - fusion vs bunionectomy, patient unsure Family History FAMILY HISTORY Problem Relation Age of Onset Cancer Father PROSTATE Alcohol/Drug Father Diabetes Father Hypertension Father Stroke Father Prostate Cancer Father Breast Cancer Maternal Grandmother Diabetes Paternal Uncle Stroke Paternal Uncle Breast Cancer Other MATERNAL COUSINS X2 Hypertension Other NIECE No Ocular Disease No Family History Patient Allergies ALLERGIES Allergen Reactions Steffi Inhibitors Cough Latex Rash Current Medications Current Outpatient Medications on File Prior to Visit Medication Sig BRILINTA 90 mg tablet Take 1 tablet by mouth twice daily. metoprolol tartrate, short acting, (LOPRESSOR) 50 mg tablet Take 1 tablet by mouth twice daily. empagliflozin (JARDIANCE) 25 mg tablet TAKE 1 TABLET BY MOUTH ONCE DAILY IN THE MORNING insulin lispro (HUMALOG KWIKPEN INSULIN) 100 unit/mL 12 units 3 times daily atorvastatin (LIPITOR) 40 mg tablet Take 1 tablet by mouth daily at bedtime. For cholesterol. lisinopril (ZESTRIL, PRINIVIL) 20 mg tablet Take 1 tablet by mouth once daily. losartan (COZAAR) 50 mg tablet Take 1 tablet by mouth once daily. blood sugar diagnostic (BLOOD GLUCOSE TEST) test strip Test blood sugar(s) one times daily. Dx: 250.00. Insulin: No glipiZIDE (GLUCOTROL) 5 mg tablet Take 1 tablet by mouth twice daily before meals. metFORMIN ER (GLUCOPHAGE XR) 500 mg 24 hr tablet Take 2 tablets by mouth twice daily with meals. BABY ASPIRIN ORAL Take by mouth. insulin glargine (BASAGLAR KWIKPEN U-100 INSULIN) 100 unit/mL (3 mL) Inject 16 Units subcutaneouslydaily at bedtime. terbinafine HCl (LAMISIL) 250 mg tablet Take 1 tablet by mouth once daily. polyethylene glycol 3350 (MIRALAX, GLYCOLAX) 17 gram/dose powder Take 17 g by mouth once daily. Take one (1) capful in 8oz of liquid each day. promethazine (PHENERGAN) 25 mg tablet Take 1 tablet by mouth every 6 hours as needed for Nausea/Vomiting. cholecalciferol (VITAMIN D-3) 5,000 unit tab Take 1 tablet by mouth once daily. Cholecalciferol, Vitamin D3, (DIALYVITE VITAMIN D) 125 mcg (5,000 unit) cap Take 1 capsule by mouthonce daily. Insulin Hume, Disposable, (BD ULTRA-FINE SONU PEN NEEDLE) 32 gauge x 5/32 ndle 2Use one needle for each dose. 1/day. Lancets lancets Test blood sugar(s) 1 times daily. Dx: DM2. Insulin: No blood sugar diagnostic (RELION PRIME TEST STRIPS) test strip Diabetes mellitus type 2, non insulin dependent, testing 1x/day, Use as instructed alogliptin 25 mg tab TAKE ONE TABLET BY MOUTH ONCE DAILY ONETOUCH ULTRA TEST test strip USE TO CHECK GLUCOSE ONCE DAILY Blood-Glucose Meter (ONE TOUCH ULTRA 2) monitoring kit 1 Each as needed. One Touch Meter Kit Diagnosis: Diabetes Mellitus ibuprofen 800 mg tablet Take 1 tablet by mouth every 8 hours as needed (FOR PAIN. TAKE WITH FOOD). MULTI-VITAMIN ORAL Take by mouth. No current facility-administered medications on file prior to visit. Social History Social History Tobacco Use Smoking status: Never Smokeless tobacco: Never Substance Use Topics Alcohol use: No Drug use: No REVIEW OF SYSTEMS: as above Reviewed relevant PMHx, PSHx, Social Hx, current medications and allergies. Review of Symptoms REVIEW OF SYSTEMS See HPI. All other systems are negative. EXAM: BP 122/70 Pulse 82 Resp 18 Wt 72.1 kg (159 lb) LMP 04/22/2021 (Approximate) SpO2 98% BMI 24.90 kg/m General Appearance: Well appearing, alert, in no acute distress, well-hydrated, well nourished.. Skin: Skin color, texture, turgor normal, no suspicious rashes or lesions. Head: Normocephalic, no masses, lesions, tenderness or abnormalities. Lungs: Lungs clear to auscultation. No wheezing, rhonchi, rales.. Heart: RRR without murmur, gallop, or rubs. No ectopy. Abdomen: Normal abdominal exam, Abdomen soft, non-tender. Bowel sounds normal. No masses, organomegaly. Pelvic: Deferred. Health Maintenance List HEPATITIS B(1 of 3 - 3-dose series) Never done PNEUMOCOCCAL(2 - PCV) due on 04/13/2013 PAP TESTING due on 12/12/2017 HPV TESTING due on 12/12/2017 DILATED RETINAL EXAM due on 03/29/2019 MAMMOGRAM due on 12/12/2020 DEPRESSION SCREENING due on 11/11/2021 INFLUENZA(1) due on 12/16/2021 COVID-19 VACCINE(1) due on 09/10/2022 HBA1C due on 03/22/2022 DTAP,TDAP,TD(2 - Td or Tdap) due on 07/04/2022 DIABETIC FOOT EXAM due on 09/10/2022 ANNUAL PCP TEAM CHRONIC DISEASE VISIT due on 09/10/2022 BP CONTROLLED (<130/80) due on 09/10/2022 URINE ALBUMIN:CREATININE RATIO due on 09/20/2022 LDL CHOLESTEROL due on 09/20/2022 COLORECTAL CANCER SCREENING due on 04/30/2026 HEPATITIS C SCREENING Completed HIV SCREENING Completed ASSESSMENT/PLAN: 1. Abnormal uterine bleeding - ICD9: 626.9, ICD10: N93.9 (primary diagnosis) Blood work to rule out severe anemia due to blood loss. US pelvis transabd and transvag. Established with music video producer for routine exams and follow-up US results. - COMP METABOLIC PANEL - CBC + DIFF - IRON + TIBC - FERRITIN BLD - US FEMALE PELVIS TRANSABD LTD - US FEMALE PELVIS TRANSVAG - CONSULT TO GYNECOLOGY 2. Infertility counseling - ICD9: V26.49, ICD10: Z31.69 Age of 51. Would like to discuss fertility options. Recently remarried -- with no children. Start work-up. - CONSULT TO INFERTILITY CLINIC - ESTROGEN FRACTION BL - PROGESTERONE BLD - TESTOSTERONE, FREE AND TOTAL - ANTI MULLERIAN HORMONE RTO as needed. Prescription instructions reviewed with patient as applicable. Potential red flag symptoms discussed with the patient. Reviewed appropriate action plan to take if red flag symptoms occur. Patient agreeable to treatment plan. Jamaica Marsh APRN.CNP [id number] [place] [address] documented in this encounterLouis Stokes Cleveland Va Medical Center09-12-2022 Miscellaneous Notes* Telephone Encounter - Marilyn Morales LPN - 12/27/2021 8:41 AM EDT Phoned patient and updated her with provider's message. Patient voiced understanding. * Telephone Encounter - Gerber Pina DO - 12/25/2021 7:25 AM EDT This is not something I am familiar with Gerber Pina DO * Telephone Encounter - Melly Colindres RN - 12/24/2021 3:37 PM EDT Patient calls and asking if provider thinks taking Blood tonic after her menstrual cycle would be ok? Please review and advise, Melly Colindres RN documented in this encounterLouis Stokes Cleveland [facility] Center07-13-2022 Miscellaneous Notes* Telephone Encounter - Saige Solis Cma - 10/27/2021 9:23 AM EDT Patient notified and verbalized understanding Saige Solis Cma * Telephone Encounter - Gerber Pina DO - 10/26/2021 5:28 PM EDT She should be taking both the Jardiance and the lipitor Gerber Pina DO * Telephone Encounter - Sherlyn Sifuentes Pss - 10/25/2021 8:40 AM EDT Patient said she called the pharmacy and was told that she had to call our office regarding this rx. Upon looking in [facility]. Her Jardiance rx that was sent on 09/10/21 was canceled. States this medication is discontinued. Please review and advise at [phone] * Telephone Encounter - Brittany Turner Pss - 10/25/2021 8:23 AM EDT Patient Mariella called she is confused on her medications, Mariella was told that her Jardiance was cancelled,and did not understand about taking atorvastatin. Mariella will start to take her atorvastatin tonight. Please advise what meds she should be taking, . documented in this encounterLouis Stokes Cleveland [facility] Center07-11-2022 Miscellaneous Notes* Telephone Encounter - Wendy Ortega LPN - 10/25/2021 9:06 AM EDT Patient phones requesting refills as follows: Pending Prescriptions Disp Refills EMPAGLIFLOZIN 25 MG TABLET 30 tablet 0 Sig: TAKE 1 TABLET BY MOUTH ONCE DAILY IN THE MORNING LV: No CARLOS-09/10/21 Labs-09/20/21Feb-12/17/21 Med filled 09/10/21 Please review and advise. Wendy Ortega LPN documented in this encounterLouis [facility]-11-2022 Miscellaneous Notes* Telephone Encounter - Brittany Turner Pss - 10/25/2021 8:09 AM EDT Patient has been identified by name and date of : Yes Pending Prescriptions Disp Refills BRILINTA 90 MG TABLET 60 tablet 3 Sig: Take 1 tablet by mouth twice daily. LV: Yes METOPROLOL TARTRATE 50 MG TABLET 60 tablet 5 Sig: Take 1 tablet by mouth twice daily. LV: No CARLOS-09/10/21 Labs-/10/06 NOV-12/17/21 RX INSTRUCTIONS: Patient aware RX will be sent to pharmacy. No need to notify patient. Brittany Turner [facility] documented in this encounterLouis Stokes [facility]06-09-2022 Miscellaneous Notes* Telephone Encounter - Arlet Mar Ma - 09/23/2021 8:53 AM EDT Pt informed, verbalized understanding Arlet Mar Ma * Telephone Encounter - Cecy Barboza APRN.CNP - 09/23/2021 8:39 AM EDT Please let Mariella know that I received her lab results. Her kidney function is just a bit decreased. I'd like her to focus on getting plenty of water-at least 60-80oz per day-and then recheck these labs again in 2 weeks. Otherwise, no other concerns. Cecy Barboza APRN.CNP documented in this encounterLouis Stokes [facility]05-27-2022 Instructions* Patient Instructions* Cecy Barboza APRN.CNP - 09/10/2021 9:19 AM EDT Schedule with women's health for your PAP exam. Schedule your EMG (nerve testing). Continue with same medications. Have your labs drawn. Schedule with your eye doctor. documented in this encounterLouis Stokes [facility]05-27-2022 History of Present illness Narrative* Cecy Barboza APRN.CNP - 09/10/2021 8:58 AM EDT Chief Complaint Patient presents with: Diabetes Medication Follow-up HPI Mariella Ramirez is a 51 year old female who presents here today for Above Complaints. Today: Has been out of her metformin for about a week. Tries to eat vegetables and moderate amount of meat. Limiting carbs. Tries to get plenty of exercise-also job that gets her exercise. Needs refills on medications. Fingers on her right hand-middle is worst, ring finger hurts a bit as well, significant numbness and tingling. Wondering if r/t her job vs diabetes vs carpal tunnel. Past medical history, appointments, medications, allergies reviewed. 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 07/04/2012 Previous Surgical History PAST SURGICAL HISTORY Procedure Laterality Date COLONOSCOPY FLX DX W/COLLJ SPEC WHEN PFRMD 12/02/15 Colonoscopy (MAC) CORONARY STENT EA VESSEL 06/2020 DILATION & CURETTAGE DX&/THER NONOBSTETRIC Dilation & curettage PAST SURGICAL HISTORY OF 1995 Bilateral removal of breast tissue in axilla PAST SURGICAL HISTORY OF unsure R foot surgery - fusion vs bunionectomy, patient unsure Family History FAMILY HISTORY Problem Relation Age of Onset Cancer Father PROSTATE Alcohol/Drug Father Diabetes Father Hypertension Father Stroke Father Prostate Cancer Father Breast Cancer Maternal Grandmother Diabetes Paternal Uncle Stroke Paternal Uncle Breast Cancer Other MATERNAL COUSINS X2 Hypertension Other NIECE No Ocular Disease No Family History Patient Allergies ALLERGIES Allergen Reactions Steffi Inhibitors Cough Latex Rash Current Medications Current Outpatient Medications on File Prior to Visit Medication Sig metFORMIN ER (GLUCOPHAGE XR) 500 mg 24 hr tablet Take 2 tablets by mouth twice daily with meals. BRILINTA 90 mg tablet Take 1 tablet by mouth twice daily. empagliflozin (JARDIANCE) 25 mg tablet TAKE 1 TABLET BY MOUTH ONCE DAILY IN THE MORNING insulin lispro (HUMALOG KWIKPEN INSULIN) 100 unit/mL 12 units 3 times daily BABY ASPIRIN ORAL Take by mouth. atorvastatin (LIPITOR) 40 mg tablet Take 1 tablet by mouth daily at bedtime. For cholesterol. metoprolol tartrate, short acting, (LOPRESSOR) 50 mg tablet Take 1 tablet by mouth twice daily. lisinopril (ZESTRIL, PRINIVIL) 20 mg tablet Take 1 tablet by mouth once daily. glipiZIDE (GLUCOTROL) 5 mg tablet Take 1 tablet by mouth twice daily before meals. losartan (COZAAR) 50 mg tablet Take 1 tablet by mouth once daily. terbinafine HCl (LAMISIL) 250 mg tablet Take 1 tablet by mouth once daily. polyethylene glycol 3350 (MIRALAX, GLYCOLAX) 17 gram/dose powder Take 17 g by mouth once daily. Take one (1) capful in 8oz of liquid each day. promethazine (PHENERGAN) 25 mg tablet Take 1 tablet by mouth every 6 hours as needed for Nausea/Vomiting. blood sugar diagnostic (BLOOD GLUCOSE TEST) test strip Test blood sugar(s) one times daily. Dx: 250.00. Insulin: No Insulin Hume, Disposable, (BD ULTRA-FINE SONU PEN NEEDLE) 32 gauge x 5/32 ndle 2Use one needle for each dose. 1/day. Lancets lancets Test blood sugar(s) 1 times daily. Dx: DM2. Insulin: No blood sugar diagnostic (RELION PRIME TEST STRIPS) test strip Diabetes mellitus type 2, non insulin dependent, testing 1x/day, Use as instructed alogliptin 25 mg tab TAKE ONE TABLET BY MOUTH ONCE DAILY ONETOUCH ULTRA TEST test strip USE TO CHECK GLUCOSE ONCE DAILY Blood-Glucose Meter (ONE TOUCH ULTRA 2) monitoring kit 1 Each as needed. One Touch Meter Kit Diagnosis: Diabetes Mellitus ibuprofen 800 mg tablet Take 1 tablet by mouth every 8 hours as needed (FOR PAIN. TAKE WITH FOOD). MULTI-VITAMIN ORAL Take by mouth. insulin glargine (BASAGLAR KWIKPEN U-100 INSULIN) 100 unit/mL (3 mL) Inject 16 Units subcutaneouslydaily at bedtime. cholecalciferol (VITAMIN D-3) 5,000 unit tab Take 1 tablet by mouth once daily. Cholecalciferol, Vitamin D3, (DIALYVITE VITAMIN D) 125 mcg (5,000 unit) cap Take 1 capsule by mouthonce daily. No current facility-administered medications on file prior to visit. Social History Social History Tobacco Use Smoking status: Never Smoker Smokeless tobacco: Never Used Substance Use Topics Alcohol use: No Drug use: No Review of Symptoms REVIEW OF SYSTEMS see HPI, otherwise negative EXAM: BP 120/82 (BP Site: Left Arm, BP Position: Sitting, BP Cuff Size: Regular Adult) Pulse 80 Resp 16 Wt 73.9 kg (163 lb) LMP 04/22/2021 (Approximate) SpO2 97% BMI 25.53 kg/m General Appearance: Well appearing, alert, in no acute distress, well-hydrated, well nourished.. Skin: Skin color, texture, turgor normal, no suspicious rashes or lesions. Head: Normocephalic, no masses, lesions, tenderness or abnormalities. Nose/Sinuses: Nares normal, septum midline, mucosa normal, no drainage or sinus tenderness. Oropharynx: Lips, mucosa, and tongue normal, teeth and gums normal, oropharynx normal. Neck: Supple, no adenopathy; thyroid symmetric, normal size, no bruits. Lungs: Lungs clear to auscultation. No wheezing, rhonchi, rales.. Heart: RRR without murmur, gallop, or rubs. No ectopy. Abdomen: Normal abdominal exam, Abdomen soft, non-tender. Bowel sounds normal. No masses, organomegaly. Extremities: No deformities, edema, skin discoloration, clubbing or cyanosis. Good capillary refill. . Musculoskeletal: No joint swelling, deformity, or tenderness. Peripheral Pulses: Normal. Neurologic: Gait normal. Reflexes normal and symmetric. Sensation grossly intact.. Lymph Nodes: No cervical lymphadenopathy and No supraclavicular lymphadenopathy. Health Maintenance List COVID-19 VACCINE(1) Never done HEPATITIS B(1 of 3 - Risk 3-dose series) Never done PNEUMOCOCCAL(2 - PCV) due on 04/13/2013 PAP TESTING due on 12/12/2017 HPV TESTING due on 12/12/2017 DILATED RETINAL EXAM due on 03/29/2019 DIABETIC FOOT EXAM due on 10/08/2020 BP CONTROLLED (<130/80) due on 10/08/2020 MAMMOGRAM due on 12/12/2020 HBA1C due on 03/12/2021 URINE ALBUMIN:CREATININE RATIO due on 09/11/2021 ANNUAL PCP TEAM CHRONIC DISEASE VISIT due on 11/11/2021 DEPRESSION SCREENING due on 11/11/2021 LDL CHOLESTEROL due on 12/10/2021 INFLUENZA(Season Ended) due on 12/16/2021 DTAP,TDAP,TD(2 - Td or Tdap) due on 07/04/2022 COLORECTAL CANCER SCREENING due on 04/30/2026 HEPATITIS C SCREENING Completed HIV SCREENING Completed Data reviewed Previous records, office notes. ASSESSMENT/PLAN: 1. Type 2 diabetes mellitus with both eyes affected by mild nonproliferative retinopathy without macular edema, with long-term current use of insulin (HCC) - ICD9: 250.50, 362.04, V58.67, ICD10: E11.3293, Z79.4 (primary diagnosis) Continue current medications. Restarting metformin will likely improve A1C. Discussed diet and exercise. A1C and follow up in 3 months. - HEMOGLOBIN A1C (POC) - INSULIN LISPRO (U-100) 100 UNIT/ML SUBCUTANEOUS PEN - BLOOD GLUCOSE TEST STRIPS - GLIPIZIDE 5 MG TABLET - CBC - COMP METABOLIC PANEL - ALBUMIN/CREAT RATIO RND UR - EMG(NEURO/NI) - HGB A1C 2. Iron deficiency anemia, unspecified iron deficiency anemia type - ICD9: 280.9, ICD10: D50.9 Repeat lab work. - CBC - IRON + TIBC - FERRITIN BLD 3. Essential hypertension - ICD9: 401.9, ICD10: I10 - good control - Continue current medication(s) - Recommended regular aerobic exercise. - Goal of BP <130/80 - CBC - LIPID PANEL BASIC - COMP METABOLIC PANEL - ALBUMIN/CREAT RATIO RND UR 4. Mixed hyperlipidemia - ICD9: 272.2, ICD10: E78.2 - to be determined upon return of lab results - Continue current medication. LIPID PANEL BASIC 5. Albuminuria - ICD9: 791.0, ICD10: R80.9 - COMP METABOLIC PANEL - ALBUMIN/CREAT RATIO RND UR 6. Pain of finger of right hand - ICD9: 729.5, ICD10: M79.644 - EMG(NEURO/NI) 7. Finger numbness - ICD9: 782.0, ICD10: R20.0 - EMG(NEURO/NI) 8. Encounter for vitamin deficiency screening - ICD9: V77.99, ICD10: Z13.21 - VITAMIN D 25 HYDROXY 9. Screening for thyroid disorder - ICD9: V77.0, ICD10: Z13.29 - TSH BLD Cecy Barboza APRN.CAT CRACKER OPERATOR documented in this encounterLouis [facility]05-26-2022 Miscellaneous Notes* Telephone Encounter - Xiomy Gutiérrez RN - 09/09/2021 10:04 AM EDT Patient calls in to ask about refill request. Notified patient an appointment needed scheduled and blood work would need done. Scheduled appointment for tomorrow with provider. Patient to have labs done tomorrow as well. Xiomy Gutiérrez, RN * Telephone Encounter - Wendy Ortega LPN - 09/08/2021 10:30 AM EDT TC to pt. LM to call office, ask for triage nurse to make follow up appt with PCP and to get labs. Wendy Ortega LPN documented in this encounterLouis Stokes [facility]05-12-2022 Miscellaneous Notes* Telephone Encounter - Saige Quintanilla MA - 08/26/2021 10:05 AM EDT Spoke to [place] Nurse. This office does not carry OW fever vaccine & patient should've received polio vaccine as a child. Patient notified & verbalizes understanding. Saige Quintanilla MA * Telephone Encounter - Manuela Green - 08/26/2021 8:26 AM EDT Pt is going out of the country and needing to get vaccines before making the trip hopefully by 09/25/21. She is going to [place]. She needs to have certain vaccines before going and wants to know if they can be done here. The vaccines needed polio, OW Fever vaccine. Do we give them here? Pt only needs those 2 and the health department could not do it. She will also need to have a COVID test before leaving. Please let her know about the vaccines. documented in this encounterLouis Stokes [facility] Center03-23-2022 Miscellaneous Notes* Telephone Encounter - Jacqui Jama LPN - 07/07/2021 4:07 PM EDT Patient has been identified by name and date of : Yes Patient phones for refill(s): Pending Prescriptions Disp Refills BRILINTA 90 MG TABLET 60 tablet 3 Sig: Take 1 tablet by mouth twice daily. LV: Yes Date of last office visit in primary care: 11/11/20 next apt 07/09/21 Last 2 Encounter Wt Readings: Date: Wt: 02/22/2021 73 kg (161 lb) 11/11/2020 79.8 kg (176 lb) Previous labs/tests for medication: Diabetes: Hemoglobin A1C (%) Date Value 12/10/2020 8.4 09/11/2020 10.5 Please advise. Thank you. Jacqui Jama LPN documented in this encounterLouis Stokes [facility] Center11-19-2021 Miscellaneous Notes* Telephone Encounter - Roscoe Hein - 03/05/2021 1:27 PM EST Rescheduled 04-29-2021 dr Hidalgo * Telephone Encounter - Kena Jama LPN - 02/24/2021 3:39 PM EST Patient given GoLytely instruction with visit reviewed, verbalized understanding. Verbal Ember Hopper, no cardiac clearance required to schedule EGD, Colonoscopy Dr. Hidalgo 04/2021. Kena Jama LPN documented in this encounterLouis Stokes [facility]05-11-[address] [facility] History of Past illness Narrative* Problem Noted Date Resolved Date Type 2 diabetes mellitus without complication 10/20/2017 documented as of this encounter (statuses as of 07/07/2021) [facility] of Past illness Narrative* Problem Noted Date Resolved Date Type 2 diabetes mellitus without complication 10/20/2017 documented as of this encounter (statuses as of 08/26/2021) [facility] illness Narrative* Problem Noted Date Resolved Date Type 2 diabetes mellitus without complication 10/20/2017 documented as of this encounter (statuses as of 09/03/2021) [facility] illness Narrative* Problem Noted Date Resolved Date Type 2 diabetes mellitus without complication 10/20/2017 documented as of this encounter (statuses as of 09/09/2021) [address]2016 History of Past illness Narrative* Problem Noted Date Resolved Date Type 2 diabetes mellitus without complication 10/20/2017 documented as of this encounter (statuses as of 09/10/2021) [address]2016 History of Past illness Narrative* Problem Noted Date Resolved Date Type 2 diabetes mellitus without complication 10/20/2017 documented as of this encounter (statuses as of 09/21/2021) [address]2016 History of Past illness Narrative* Problem Noted Date Resolved Date Type 2 diabetes mellitus without complication 10/20/2017 documented as of this encounter (statuses as of 09/23/2021) [address]2016 History of Past illness Narrative* Problem Noted Date Resolved Date Type 2 diabetes mellitus without complication 10/20/2017 documented as of this encounter (statuses as of 10/25/2021) [address]2016 History of Past illness Narrative* Problem Noted Date Resolved Date Type 2 diabetes mellitus without complication 10/20/2017 documented as of this encounter (statuses as of 10/27/2021) [address]2016 History of Past illness Narrative* Problem Noted Date Resolved Date Type 2 diabetes mellitus without complication 10/20/2017 documented as of this encounter (statuses as of 12/27/2021) [address]2016 History of Past illness Narrative* Problem Noted Date Resolved Date Type 2 diabetes mellitus without complication 10/20/2017 documented as of this encounter (statuses as of 12/27/2021) [address]2016 History of Past illness Narrative* Problem Noted Date Resolved Date Type 2 diabetes mellitus without complication 10/20/2017 documented as of this encounter (statuses as of 01/05/2022) [address]2016 History of Past illness Narrative* Problem Noted Date Resolved Date Type 2 diabetes mellitus without complication 10/20/2017 documented as of this encounter (statuses as of 01/06/2022) [address]2016 History of Past illness Narrative* Problem Noted Date Resolved Date Type 2 diabetes mellitus without complication 10/20/2017 documented as of this encounter (statuses as of 01/06/2022) [address]2016 History of Past illness Narrative* Problem Noted Date Resolved Date Type 2 diabetes mellitus without complication 10/20/2017 documented as of this encounter (statuses as of 01/07/2022) [address] History of Past illness Narrative* Problem Noted Date Resolved Date Type 2 diabetes mellitus without complication 10/20/2017 documented as of this encounter (statuses as of 01/07/2022) [address]2016 History of Past illness Narrative* Problem Noted Date Resolved Date Type 2 diabetes mellitus without complication 10/20/2017 documented as of this encounter (statuses as of 01/27/2022) [address]2016 History of Past illness Narrative* Problem Noted Date Resolved Date Type 2 diabetes mellitus without complication 10/20/2017 documented as of this encounter (statuses as of 03/08/2022) [address]2016 History of Past illness Narrative* Problem Noted Date Resolved Date Type 2 diabetes mellitus without complication 10/20/2017 documented as of this encounter (statuses as of 03/21/2022) [address] History of Past illness Narrative* Problem Noted Date Resolved Date Type 2 diabetes mellitus without complication 10/20/2017 documented as of this encounter (statuses as of 03/21/2022) [address] History of Past illness Narrative* Problem Noted Date Resolved Date Type 2 diabetes mellitus without complication 10/20/2017 documented as of this encounter (statuses as of 2022) [address]2016 History of Past illness Narrative* Problem Noted Date Resolved Date Type 2 diabetes mellitus without complication 10/20/2017 documented as of this encounter (statuses as of 05/23/2022) [address] History of Past illness Narrative* Problem Noted Date Resolved Date Type 2 diabetes mellitus without complication 10/20/2017 documented as of this encounter (statuses as of 05/24/2022) [address]2016 History of Past illness Narrative* Problem Noted Date Resolved Date Type 2 diabetes mellitus without complication 10/20/2017 documented as of this encounter (statuses as of 06/29/2022) [address]2016 History of Past illness Narrative* Problem Noted Date Resolved Date Type 2 diabetes mellitus without complication 10/20/2017 documented as of this encounter (statuses as of 08/26/2022) [address]2016 History of Past illness Narrative* Problem Noted Date Resolved Date Type 2 diabetes mellitus without complication 10/20/2017 documented as of this encounter (statuses as of 09/16/2022) [address] History of Past illness Narrative* Problem Noted Date Resolved Date Type 2 diabetes mellitus without complication 10/20/2017 documented as of this encounter (statuses as of 10/04/2022) [address]2016 History of Past illness Narrative* Problem Noted Date Resolved Date Type 2 diabetes mellitus without complication 10/20/2017 documented as of this encounter (statuses as of 10/05/2022) [address]2016 History of Past illness Narrative* Problem Noted Date Resolved Date Type 2 diabetes mellitus without complication 10/20/2017 documented as of this encounter (statuses as of 10/05/2022) [address]2016 History of Past illness Narrative* Problem Noted Date Diagnosed Date Resolved Date Type 2 diabetes mellitus without complication 11/19/19 16 10/20/2017 documented as of this encounter (statuses as of 12/22/2022) [address]2016 History of Past illness Narrative* Problem Noted Date Diagnosed Date Resolved Date Type 2 diabetes mellitus without complication 11/19/19 16 10/20/2017 documented as of this encounter (statuses as of 12/23/2022) [address]2016 History of Past illness Narrative* Problem Noted Date Diagnosed Date Resolved Date Type 2 diabetes mellitus without complication 11/19/19 16 10/20/2017 documented as of this encounter (statuses as of 12/24/2022) [facility] Narrative* Problem Noted Date Diagnosed Date Resolved Date Type 2 diabetes mellitus without complication 11/19/19 16 10/20/2017 documented as of this encounter (statuses as of 02/07/2023) [facility] Narrative* Problem Noted Date Diagnosed Date Resolved Date Type 2 diabetes mellitus without complication 11/19/19 16 10/20/2017 documented as of this encounter (statuses as of 05/23/2023) [facility] Narrative* Problem Noted Date Diagnosed Date Resolved Date Type 2 diabetes mellitus without complication 11/19/19 16 10/20/2017 documented as of this encounter (statuses as of 07/06/2023) [facility] Diagnosis Type 2 diabetes mellitus with both eyes affected by mild nonproliferative retinopathy without macular edema, with long-term current use of insulin (HCC)- Primary Iron deficiency anemia, unspecified iron deficiency anemia type Essential hypertension Unspecified essential hypertension Mixed hyperlipidemia Albuminuria Proteinuria Pain of finger of right hand Pain in limb Finger numbness Disturbance of skin sensation Encounter for vitamin deficiency screening Screening for other and unspecified endocrine, nutritional, metabolic, and immunity disorders Screening for thyroid disorder documented in this encounter [facility] Diagnosis Type 2 diabetes mellitus with both eyes affected by mild nonproliferative retinopathy without macular edema, with long-term current use of insulin (HCC)- Primary Creatinine elevation Other nonspecific findings on examination of blood documented in this encounter [facility]* Diagnosis Encounter for screening mammogram for breast cancer documented in this encounter [facility]* Diagnosis Abnormal uterine bleeding- Primary Unspecified disorder of menstruation and other abnormal bleeding from female genital tract Infertility counseling Other procreative management counseling and advice documented in this encounter [facility]* Diagnosis Abnormal uterine bleeding- Primary Unspecified disorder of menstruation and other abnormal bleeding from female genital tract Perimenopausal Symptomatic menopausal or female climacteric states Screening for cervical cancer Screening for malignant neoplasm of the cervix Encounter for screening for human papillomavirus (HPV) Special screening examination for human papillomavirus (HPV) documented in this encounter [facility] Diagnosis Abnormal uterine bleeding Unspecified disorder of menstruation and other abnormal bleeding from female genital tract documented in this encounter [facility]* Diagnosis Type 2 diabetes mellitus with both eyes affected by mild nonproliferative retinopathy without macular edema, with long-term current use of insulin (HCC) documented in this encounter [facility]* Diagnosis Type 2 diabetes mellitus with both eyes affected by mild nonproliferative retinopathy without macular edema, with long-term current use of insulin (HCC) documented in this encounter [facility]* Diagnosis Type 2 diabetes mellitus with both eyes affected by mild nonproliferative retinopathy without macular edema, with long-term current use of insulin (HCC) documented in this encounter [facility]* Diagnosis Type 2 diabetes mellitus without complication, with long-term current use of insulin (HCC)- Primary documented in this encounter [facility]* Diagnosis Visit for suture removal- Primary Encounter for removal of sutures documented in this encounter [facility]* Diagnosis Type 2 diabetes mellitus without complication, with long-term current use of insulin (HCC)- Primary documented in this encounter [facility] emergency department note* Diagnosis Type 2 diabetes mellitus without complication, with long-term current use of insulin (HCC)- Primary Encounter for immunization Need for other specified prophylactic vaccination against single bacterial disease Essential hypertension Unspecified essential hypertension Mixed hyperlipidemia Overweight (BMI 25.0-29.9) Overweight Wellness examination Callus of hand [facility] Diagnosis Type 2 diabetes mellitus without complication, with long-term current use of insulin (HCC) [facility] Diagnosis Encounter for screening mammogram for breast cancer [facility] Diagnosis SOB (shortness of breath)- Primary Shortness of breath Bilateral leg edema Edema Essential hypertension Unspecified essential hypertension Polyuria Type 2 diabetes mellitus with both eyes affected by mild nonproliferative retinopathy without macular edema, with long-term current use of insulin (HCC) Noncompliance with medication regimen Personal history of noncompliance with medical treatment, presenting hazards to health SOB (shortness of breath) Shortness of breath Bilateral leg edema Edema [facility]* Diagnosis SOB (shortness of breath) Shortness of breath Bilateral leg edema Edema [facility] Diagnosis Bilateral leg edema- Primary Edema Essential hypertension Unspecified essential hypertension Type 2 diabetes mellitus without complication, with long-term current use of insulin (HCC) Mixed hyperlipidemia documented in this encounter [facility] note* Diagnosis Anemia, unspecified type- Primary Encounter for screening examination for other mental health and behavioral disorders Mixed hyperlipidemia Bilateral leg edema Edema Type 2 diabetes mellitus without complication, with long-term current use of insulin (HCC) Congestive heart failure, unspecified HF chronicity, unspecified heart failure type (HCC) Noncompliance with medication regimen Personal history of noncompliance with medical treatment, presenting hazards to health Type 2 diabetes mellitus with other specified complication, with long-term current use of insulin (HCC) documented in this encounter [facility] note* Diagnosis Essential hypertension- Primary Unspecified essential hypertension documented in this encounter [facility] note* Diagnosis Essential hypertension Unspecified essential hypertension documented in this encounter [facility] note* Diagnosis Type 2 diabetes mellitus without complication, with long-term current use of insulin (HCC)- Primary Essential hypertension Unspecified essential hypertension Congestive heart failure, unspecified HF chronicity, unspecified heart failure type (HCC) Type 2 diabetes mellitus with both eyes affected by mild nonproliferative retinopathy without macular edema, with long-term current use of insulin (HCC)- Primary documented in this encounter [facility] note* Diagnosis Type 2 diabetes mellitus with both eyes affected by mild nonproliferative retinopathy without macular edema, with long-term current use of insulin (HCC)- Primary Medication management Encounter for long-term (current) use of other medications documented in this encounter [facility] note* Diagnosis Essential hypertension Unspecified essential hypertension Type 2 diabetes mellitus without complication, with long-term current use of insulin (HCC) Congestive heart failure, unspecified HF chronicity, unspecified heart failure type (HCC) documented in this encounter [facility] note* Diagnosis Type 2 diabetes mellitus without complication, with long-term current use of insulin (HCC)- Primary documented in this encounter [facility] note* Diagnosis Encounter for screening mammogram for breast cancer documented in this encounter [facility] note* Diagnosis Type 2 diabetes mellitus with both eyes affected by mild nonproliferative retinopathy without macular edema, with long-term current use of insulin (HCC)- Primary documented in this encounter [facility] course Narrative No data available for this section [facility] Reason for referral (narrative)* Outpatient Procedure (Routine) - Authorized Specialty Diagnoses / Procedures Referred By Contac t Referred To Contact [facility] Diagnoses Type 2 diabetes mellitus with both eyes affected by mild nonproliferative retinopathy without macular edema, with long-term current use of insulin ([facility]) Pain of finger of right hand Finger numbness Procedures EMG(NEURO/NI) NERVE CONDUCTION STUDIES 9-10 STUDIES Cecy Barboza APRN.CNP [address] [place] [address] [facility] [place] [address] [place] [id number] Referral ID Status Reason Start Date Expiration Date Visits Requested Visits Authorized [id number] Authorized Auto-Generat ed Referral 09/10/2021 09/10/2022 1 1 [facility] for referral (narrative)* Diagnostic Procedure Only (Routine) - Pending Review Specialty Diagnoses / Procedures Referred By Contac t Referred To Contact [facility] Diagnoses Encounter for screening mammogram for breast cancer Procedures PARIS SCREENING SCREENING MAMMOGRAPHY BI 2-VIEW BREAST INC CAD Gerber Pina DO [address] [place] [address] [facility] [address] [place] [phone] Referral ID Status Reason Start Date Expiration Date Visits Requested Visits Authorized [id number] Pending Review Auto-Generat ed Referral 12/22/2021 01/21/2023 1 1 [facility] for referral (narrative)* Diagnostic Procedure Only (Routine) - Closed Specialty Diagnoses / Procedures Referred By Marylin t Referred To Contact [facility] Diagnoses Abnormal uterine bleeding Procedures US FEMALE PELVIS TRANSVAG US TRANSVAGINAL Jamaica Marsh APRN.CAT CRACKER OPERATOR [address] [place] [address] [facility] Referral ID Status Reason Start Date Expiration Date V isits Requested Visits Authorized [id number] Closed Auto-Generate d Referral 01/05/2022 02/04/2023 1 1 * Diagnostic Procedure Only (Routine) - Closed Specialty Diagnoses / Procedures Referred By Marylin heredia Referred To Contact [facility] Diagnoses Abnormal uterine bleeding Procedures US FEMALE PELVIS TRANSABD LTD US PELVIC NONOBSTETRIC IMAGE DCMTN LIMITED/F/U Jamaica Marsh APRN.CAT CRACKER OPERATOR [address] [place] [address] [facility] Referral ID Status Reason Start Date Expiration Date V isits Requested Visits Authorized [id number] Closed Auto-Generate d Referral 01/05/2022 02/04/2023 1 1 [facility] for referral (narrative)* Diagnostic Procedure Only (Routine) - New Request Specialty Diagnoses / Procedures Referred By Marylin heredia Referred To Contact [facility] Diagnoses Encounter for screening mammogram for breast cancer Procedures PARIS SCREENING W YVETTE SCREENING DIGITAL BREAST TOMOSYNTHESIS BI SCREENING MAMMOGRAPHY BI 2-VIEW BREAST INC CAD Gerber Pina DO [address] [place] [address] [facility] [address] [place] [address] Referral ID Status Reason Start Date Expiration Date Visits Requested Visits Authorized [id number] New Request Auto-Generat ed Referral 11/08/2023 12/07/2024 1 1 [facility] for referral (narrative)* Outpatient Procedure (Routine) - New Request Specialty Diagnoses / Procedures Referred By Anselmoac t Referred To Contact [facility] Diagnoses Bilateral leg edema Procedures ECG COMPLETE ECG ROUTINE ECG W/LEAST 12 LDS W/I&R Jamaica Mireles APRN.CAT CRACKER OPERATOR [address] [place] [address] [facility] [place] [address] [place] [address] Referral ID Status Reason Start Date Expiration Date Visits Requested Visits Authorized [id number] New Request Auto-Generat ed Referral 05/02/2024 05/02/2025 1 1 [facility] for referral (narrative)* Medication Prior Authorization - Pending Review Specialty Diagnoses / Procedures Referred By Marylin t Referred To Contact Jamaica Mireles APRN.CAT CRACKER OPERATOR [address] [place] [address] Phone: tel: fax: Referral ID Status Reason Start Date Expiration Date V isits Requested Visits Authorized [id number] Pending Review 1 1 [facility] for referral (narrative)No reason for referral information [place] deltamethod Services Work Phone: Summary Purpose Family History No Family History Records Found Relationship Condition Age at Onset Recorded Date/T [place] Not Specified Hypertension Unknown Advance Directives No Advanced Directives Records FoundDocuments on File Type Date 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 Advance Directive(s) 04/30/2021 7:22 AM Advance Directive(s) 12/02/2015 7:47 AM Documents on File Type Date 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 Advance Directive(s) 04/30/2021 7:22 AM Advance Directive(s) 12/02/2015 7:47 AM Reason for Referral Specialty Diagnoses / Procedures Referred By Contac t Referred To Contact Diagnoses Infertility counseling Procedures CONSULT TO INFERTILITY CLINIC OFFICE/OUTPATIENT [facility] 60-74 MINUTES Jamaica Marsh APRN.CAT CRACKER OPERATOR [address] [place] [address] Referral ID Status Reason Start Date Expiration Date Visits Requested Visits Authorized [id number] Authorized PCP Requested Referral Auto-Generate d Referral 01/05/2022 01/05/2023 1 1 Specialty Diagnoses / Procedures Referred By Contac t Referred To Contact Gynecology Diagnoses Abnormal uterine bleeding Procedures CONSULT TO GYNECOLOGY OFFICE/OUTPATIENT [facility] 60-74 MINUTES Jamaica Marsh APRN.CAT CRACKER OPERATOR [address] [place] [address] Referral ID Status Reason Start Date Expiration Date Visits Requested Visits Authorized [id number] Authorized PCP Requested Referral Auto-Generate d Referral 01/05/2022 01/05/2023 1 1 Specialty Diagnoses / Procedures Referred By Contac t Referred To Contact [facility] Diagnoses Abnormal uterine bleeding Procedures US FEMALE PELVIS TRANSVAG US TRANSVAGINAL Jamaica Marsh APRN.CAT CRACKER OPERATOR [address] [place] [address] [facility] Imaging Referral ID Status Reason Start Date Expiration Date Visits Requested Visits Authorized [id number] Authorized Auto-Generat ed Referral 01/05/2022 02/04/2023 1 1 Specialty Diagnoses / Procedures Referred By Contac t Referred To Contact [facility] Diagnoses Abnormal uterine bleeding Procedures US FEMALE PELVIS TRANSABD LTD US PELVIC NONOBSTETRIC IMAGE DCMTN LIMITED/F/U Jamaica Marsh APRN.CAT CRACKER OPERATOR [address] [place] [address] [facility] Referral ID Status Reason Start Date Expiration Date Visits Requested Visits Authorized [id number] Authorized Auto-Generat ed Referral 01/05/2022 02/04/2023 1 1 Specialty Diagnoses / Procedures Referred By Contac t Referred To Contact Bob Ojeda PA-C [address] [place] [address] Referral ID Status Reason Start Date Expiration Date Visits Re quested Visits Authorized [id number] Closed 1 1 Specialty Diagnoses / Procedures Referred By Contac t Referred To Contact Gerber Pina DO [address] [place] [address] Referral ID Status Reason Start Date Expiration Date Visits Re quested Visits Authorized [id number] Closed 1 1 Specialty Diagnoses / Procedures Referred By Contac t Referred To Contact Diagnoses Type 2 diabetes mellitus without complication, with long-term current use of insulin (HCC) Jamaica Mireles APRN.CAT CRACKER OPERATOR [address] [place] [address] Referral ID Status Reason Start Date Expiration Date Visits Re quested Visits Authorized [id number] Closed 1 1 Specialty Diagnoses / Procedures Referred By Marylin t Referred To Contact Diagnoses Type 2 diabetes mellitus without complication, with long-term current use of insulin (HCC) [place] Mireles, CAR WASH SUPERVISOR.CAT CRACKER OPERATOR [address] [place] [address] Referral ID Status Reason Start Date Expiration Date V isits Requested Visits Authorized [id number] Pending Review 1 1 Specialty Diagnoses / Procedures Referred By Marylin t Referred To Contact Hematology Diagnoses Anemia, unspecified type Procedures CONSULT TO HEMATOLOGY OFFICE/OUTPATIENT [facility] 60 MINUTES Jamaica Mireles, CAR WASH SUPERVISOR.CAT CRACKER OPERATOR [address] [place] [address] [facility] [address] [place] [address] Referral ID Status Reason Start Date Expiration Date Visits Requested Visits Authorized [id number] Pending Review PCP Requested Referral 05/24/2024 05/24/2025 1 1 Chief Complaint and Reason for Visit Chief Complaint Admit Date 1 Y FU November 22, 2024 7:5 9am E ORDER November 22, 2024 9:1 1am Reason for Visit Admit Date Atherosclerotic heart diseas e of [place] coronary artery without angina pectoris November 22, 2024 7:59am HFrEF (heart failure with reduced ejecti on fraction) November 22, 2024 7:59am Stented coronary artery November 22, 2024 7:59am Dyslipidemia November 22, 2024 7:5 9am Essential hypertension November 22, 2024 7:59am Chief Complaint Admit Date 1 Y FU November 22, 2024 7:5 9am Additional Source Comments INFORMATION SOURCE (unrecogn ized section and content) DATE CREATED AUTHOR 06/06/2020 [facility] DATE CREATED AUTHOR AUTHOR'S ORGANIZ ATION 06/06/2021 [facility] [place] DATE CREATED AUTHOR AUTHOR'S ORGANIZ ATION 05/20/2022 [facility] DATE CREATED AUTHOR AUTHOR'S ORGANIZ ATION 11/16/2023 [facility] ([place]) DATE CREATED AUTHOR AUTHOR'S ORGANIZ ATION 05/11/2024 [facility] DATE CREATED AUTHOR AUTHOR'S ORGANIZ ATION 06/03/2024 [facility] DATE CREATED AUTHOR AUTHOR'S ORGANIZ ATION 12/16/2024 [facility] DATE CREATED AUTHOR AUTHOR'S ORGANIZ ATION 12/28/[address] [facility] Source Comments (unrecognize d section and content) In the event this informatio n is protected by the Federal Confidentiality of Alcohol and Drug Abuse Patient Records regulations: The Federal rules restrict any use of the information to criminally investigate or prosecute any alcohol or drug abuse patient.[facility] the event this information is protected by the Federal Confidentiality of Alcohol and Drug Abuse Patient Records regulations: The Federal rules restrict any use of the information to criminally investigate or prosecute any alcohol or drug abuse patient.[facility] the event this information is protected by the Federal Confidentiality of Alcohol and Drug Abuse Patient Records regulations: The Federal rules restrict any use of the information to criminally investigate or prosecute any alcohol or drug abuse patient.[facility] Center[facility] the event this information is protected by the Federal Confidentiality of Alcohol and Drug Abuse Patient Records regulations: The Federal rules restrict any use of the information to criminally investigate or prosecute any alcohol or drug abuse patient.[facility] the event this information is protected by the Federal Confidentiality of Alcohol and Drug Abuse Patient Records regulations: The Federal rules restrict any use of the information to criminally investigate or prosecute any alcohol or drug abuse patient.[facility] the event this information is protected by the Federal Confidentiality of Alcohol and Drug Abuse Patient Records regulations: The Federal rules restrict any use of the information to criminally investigate or prosecute any alcohol or drug abuse patient.[facility] the event this information is protected by the Federal Confidentiality of Alcohol and Drug Abuse Patient Records regulations: The Federal rules restrict any use of the information to criminally investigate or prosecute any alcohol or drug abuse patient.[facility] the event this information is protected by the Federal Confidentiality of Alcohol and Drug Abuse Patient Records regulations: The Federal rules restrict any use of the information to criminally investigate or prosecute any alcohol or drug abuse patient.[facility] the event this information is protected by the Federal Confidentiality of Alcohol and Drug Abuse Patient Records regulations: The Federal rules restrict any use of the information to criminally investigate or prosecute any alcohol or drug abuse patient.[facility] the event this information is protected by the Federal Confidentiality of Alcohol and Drug Abuse Patient Records regulations: The Federal rules restrict any use of the information to criminally investigate or prosecute any alcohol or drug abuse patient.[facility] Center[facility] the event this information is protected by the Federal Confidentiality of Alcohol and Drug Abuse Patient Records regulations: The Federal rules restrict any use of the information to criminally investigate or prosecute any alcohol or drug abuse patient.[facility] CenterIn the event this information is protected by the Federal Confidentiality of Alcohol and Drug Abuse Patient Records regulations: The Federal rules restrict any use of the information to criminally investigate or prosecute any alcohol or drug abuse patient.[facility] Center[facility] the event this information is protected by the Federal Confidentiality of Alcohol and Drug Abuse Patient Records regulations: The Federal rules restrict any use of the information to criminally investigate or prosecute any alcohol or drug abuse patient.[facility] Center[facility] the event this information is protected by the Federal Confidentiality of Alcohol and Drug Abuse Patient Records regulations: The Federal rules restrict any use of the information to criminally investigate or prosecute any alcohol or drug abuse patient.[facility] Center[facility] the event this information is protected by the Federal Confidentiality of Alcohol and Drug Abuse Patient Records regulations: The Federal rules restrict any use of the information to criminally investigate or prosecute any alcohol or drug abuse patient.[facility] CenterIn the event this information is protected by the Federal Confidentiality of Alcohol and Drug Abuse Patient Records regulations: The Federal rules restrict any use of the information to criminally investigate or prosecute any alcohol or drug abuse patient.[facility] Center[facility] the event this information is protected by the Federal Confidentiality of Alcohol and Drug Abuse Patient Records regulations: The Federal rules restrict any use of the information to criminally investigate or prosecute any alcohol or drug abuse patient.[facility] CenterIn the event this information is protected by the Federal Confidentiality of Alcohol and Drug Abuse Patient Records regulations: The Federal rules restrict any use of the information to criminally investigate or prosecute any alcohol or drug abuse patient.[facility] CenterIn the event this information is protected by the Federal Confidentiality of Alcohol and Drug Abuse Patient Records regulations: The Federal rules restrict any use of the information to criminally investigate or prosecute any alcohol or drug abuse patient.[facility] CenterIn the event this information is protected by the Federal Confidentiality of Alcohol and Drug Abuse Patient Records regulations: The Federal rules restrict any use of the information to criminally investigate or prosecute any alcohol or drug abuse patient.[facility] Center[facility] the event this information is protected by the Federal Confidentiality of Alcohol and Drug Abuse Patient Records regulations: The Federal rules restrict any use of the information to criminally investigate or prosecute any alcohol or drug abuse patient.[facility] CenterIn the event this information is protected by the Federal Confidentiality of Alcohol and Drug Abuse Patient Records regulations: The Federal rules restrict any use of the information to criminally investigate or prosecute any alcohol or drug abuse patient.[facility] CenterIn the event this information is protected by the Federal Confidentiality of Alcohol and Drug Abuse Patient Records regulations: The Federal rules restrict any use of the information to criminally investigate or prosecute any alcohol or drug abuse patient.[facility] CenterIn the event this information is protected by the Federal Confidentiality of Alcohol and Drug Abuse Patient Records regulations: The Federal rules restrict any use of the information to criminally investigate or prosecute any alcohol or drug abuse patient.[facility] CenterIn the event this information is protected by the Federal Confidentiality of Alcohol and Drug Abuse Patient Records regulations: The Federal rules restrict any use of the information to criminally investigate or prosecute any alcohol or drug abuse patient.[facility] CenterIn the event this information is protected by the Federal Confidentiality of Alcohol and Drug Abuse Patient Records regulations: The Federal rules restrict any use of the information to criminally investigate or prosecute any alcohol or drug abuse patient.[facility] CenterIn the event this information is protected by the Federal Confidentiality of Alcohol and Drug Abuse Patient Records regulations: The Federal rules restrict any use of the information to criminally investigate or prosecute any alcohol or drug abuse patient.[facility] CenterIn the event this information is protected by the Federal Confidentiality of Alcohol and Drug Abuse Patient Records regulations: The Federal rules restrict any use of the information to criminally investigate or prosecute any alcohol or drug abuse patient.[facility] CenterIn the event this information is protected by the Federal Confidentiality of Alcohol and Drug Abuse Patient Records regulations: The Federal rules restrict any use of the information to criminally investigate or prosecute any alcohol or drug abuse patient.[facility] CenterIn the event this information is protected by the Federal Confidentiality of Alcohol and Drug Abuse Patient Records regulations: The Federal rules restrict any use of the information to criminally investigate or prosecute any alcohol or drug abuse patient.[facility] CenterIn the event this information is protected by the Federal Confidentiality of Alcohol and Drug Abuse Patient Records regulations: The Federal rules restrict any use of the information to criminally investigate or prosecute any alcohol or drug abuse patient.[facility] CenterIn the event this information is protected by the Federal Confidentiality of Alcohol and Drug Abuse Patient Records regulations: The Federal rules restrict any use of the information to criminally investigate or prosecute any alcohol or drug abuse patient.[facility] CenterIn the event this information is protected by the Federal Confidentiality of Alcohol and Drug Abuse Patient Records regulations: The Federal rules restrict any use of the information to criminally investigate or prosecute any alcohol or drug abuse patient.[facility] CenterIn the event this information is protected by the Federal Confidentiality of Alcohol and Drug Abuse Patient Records regulations: The Federal rules restrict any use of the information to criminally investigate or prosecute any alcohol or drug abuse patient.[facility] ClinicIn the event this information is protected by the Federal Confidentiality of Alcohol and Drug Abuse Patient Records regulations: The Federal rules restrict any use of the information to criminally investigate or prosecute any alcohol or drug abuse patient.[facility] CenterIn the event this information is protected by the Federal Confidentiality of Alcohol and Drug Abuse Patient Records regulations: The Federal rules restrict any use of the information to criminally investigate or prosecute any alcohol or drug abuse patient.[facility] CenterIn the event this information is protected by the Federal Confidentiality of Alcohol and Drug Abuse Patient Records regulations: The Federal rules restrict any use of the information to criminally investigate or prosecute any alcohol or drug abuse patient.[facility] CenterIn the event this information is protected by the Federal Confidentiality of Alcohol and Drug Abuse Patient Records regulations: The Federal rules restrict any use of the information to criminally investigate or prosecute any alcohol or drug abuse patient.[facility] CenterIn the event this information is protected by the Federal Confidentiality of Alcohol and Drug Abuse Patient Records regulations: The Federal rules restrict any use of the information to criminally investigate or prosecute any alcohol or drug abuse patient.[facility] CenterIn the event this information is protected by the Federal Confidentiality of Alcohol and Drug Abuse Patient Records regulations: The Federal rules restrict any use of the information to criminally investigate or prosecute any alcohol or drug abuse patient.[facility] CenterIn the event this information is protected by the Federal Confidentiality of Alcohol and Drug Abuse Patient Records regulations: The Federal rules restrict any use of the information to criminally investigate or prosecute any alcohol or drug abuse patient.[facility] CenterIn the event this information is protected by the Federal Confidentiality of Alcohol and Drug Abuse Patient Records regulations: The Federal rules restrict any use of the information to criminally investigate or prosecute any alcohol or drug abuse patient.[facility] CenterIn the event this information is protected by the Federal Confidentiality of Alcohol and Drug Abuse Patient Records regulations: The Federal rules restrict any use of the information to criminally investigate or prosecute any alcohol or drug abuse patient.[facility] CenterIn the event this information is protected by the Federal Confidentiality of Alcohol and Drug Abuse Patient Records regulations: The Federal rules restrict any use of the information to criminally investigate or prosecute any alcohol or drug abuse patient.[facility] CenterIn the event this information is protected by the Federal Confidentiality of Alcohol and Drug Abuse Patient Records regulations: The Federal rules restrict any use of the information to criminally investigate or prosecute any alcohol or drug abuse patient.[facility] CenterIn the event this information is protected by the Federal Confidentiality of Alcohol and Drug Abuse Patient Records regulations: The Federal rules restrict any use of the information to criminally investigate or prosecute any alcohol or drug abuse patient.[facility] CenterIn the event this information is protected by the Federal Confidentiality of Alcohol and Drug Abuse Patient Records regulations: The Federal rules restrict any use of the information to criminally investigate or prosecute any alcohol or drug abuse patient.[facility] CenterIn the event this information is protected by the Federal Confidentiality of Alcohol and Drug Abuse Patient Records regulations: The Federal rules restrict any use of the information to criminally investigate or prosecute any alcohol or drug abuse patient.[facility] CenterIn the event this information is protected by the Federal Confidentiality of Alcohol and Drug Abuse Patient Records regulations: The Federal rules restrict any use of the information to criminally investigate or prosecute any alcohol or drug abuse patient.[facility] CenterIn the event this information is protected by the Federal Confidentiality of Alcohol and Drug Abuse Patient Records regulations: The Federal rules restrict any use of the information to criminally investigate or prosecute any alcohol or drug abuse patient.[facility] CenterIn the event this information is protected by the Federal Confidentiality of Alcohol and Drug Abuse Patient Records regulations: The Federal rules restrict any use of the information to criminally investigate or prosecute any alcohol or drug abuse patient.[facility] CenterIn the event this information is protected by the Federal Confidentiality of Alcohol and Drug Abuse Patient Records regulations: The Federal rules restrict any use of the information to criminally investigate or prosecute any alcohol or drug abuse patient.[facility] CenterIn the event this information is protected by the Federal Confidentiality of Alcohol and Drug Abuse Patient Records regulations: The Federal rules restrict any use of the information to criminally investigate or prosecute any alcohol or drug abuse patient.[facility] CenterIn the event this information is protected by the Federal Confidentiality of Alcohol and Drug Abuse Patient Records regulations: The Federal rules restrict any use of the information to criminally investigate or prosecute any alcohol or drug abuse patient.[facility] CenterIn the event this information is protected by the Federal Confidentiality of Alcohol and Drug Abuse Patient Records regulations: The Federal rules restrict any use of the information to criminally investigate or prosecute any alcohol or drug abuse patient.[facility] CenterIn the event this information is protected by the Federal Confidentiality of Alcohol and Drug Abuse Patient Records regulations: The Federal rules restrict any use of the information to criminally investigate or prosecute any alcohol or drug abuse patient.[facility] CenterIn the event this information is protected by the Federal Confidentiality of Alcohol and Drug Abuse Patient Records regulations: The Federal rules restrict any use of the information to criminally investigate or prosecute any alcohol or drug abuse patient.[facility] CenterIn the event this information is protected by the Federal Confidentiality of Alcohol and Drug Abuse Patient Records regulations: The Federal rules restrict any use of the information to criminally investigate or prosecute any alcohol or drug abuse patient.[facility] CenterIn the event this information is protected by the Federal Confidentiality of Alcohol and Drug Abuse Patient Records regulations: The Federal rules restrict any use of the information to criminally investigate or prosecute any alcohol or drug abuse patient.[facility] CenterIn the event this information is protected by the Federal Confidentiality of Alcohol and Drug Abuse Patient Records regulations: The Federal rules restrict any use of the information to criminally investigate or prosecute any alcohol or drug abuse patient.[facility] CenterIn the event this information is protected by the Federal Confidentiality of Alcohol and Drug Abuse Patient Records regulations: The Federal rules restrict any use of the information to criminally investigate or prosecute any alcohol or drug abuse patient.[facility] CenterIn the event this information is protected by the Federal Confidentiality of Alcohol and Drug Abuse Patient Records regulations: The Federal rules restrict any use of the information to criminally investigate or prosecute any alcohol or drug abuse patient.[facility] CenterIn the event this information is protected by the Federal Confidentiality of Alcohol and Drug Abuse Patient Records regulations: The Federal rules restrict any use of the information to criminally investigate or prosecute any alcohol or drug abuse patient.[facility] CenterIn the event this information is protected by the Federal Confidentiality of Alcohol and Drug Abuse Patient Records regulations: The Federal rules restrict any use of the information to criminally investigate or prosecute any alcohol or drug abuse patient.[facility] Reason for Visit (unrecogniz ed section and content) Reason Onset Date Comments Refill Request 07/07/2021 Reason Comments Patient Question Reason Comments Refill Request Reason Comments Appointment Reason Comments Diabetes Medication Follow-up Reason Comments 04-29-2021 Colon EGD Reason Comments Results Reason Onset Date Comments Refill Request 10/25/2021 Reason Comments Medication Question Reason Comments Acute Visit 2 periods twice this month- both were very heavy and not normal; usually periods last 3 days, last cycle started on 12/30, still has some spotting; Pt also concerned about loss of appetite/nausea Reason Comments Menstrual Problem Specialty Diagnoses / Procedures Referred By Contac t Referred To Contact Gynecology Diagnoses Abnormal uterine bleeding Procedures CONSULT TO GYNECOLOGY OFFICE/OUTPATIENT [facility] HIGH MDM 60-74 MINUTES Jamaica Marsh APRN.CAT CRACKER OPERATOR [address] [place] [address] Referral ID Status Reason Start Date Expiration Date V isits Requested Visits Authorized [id number] Closed PCP Requested Referral Auto-Generated Referral 01/05/2022 01/05/2023 1 1 Reason Comments Radiology US Specialty Diagnoses / Procedures Referred By Contac t Referred To Contact US IMAGING Diagnoses Abnormal uterine bleeding Procedures US FEMALE PELVIS TRANSVAG US TRANSVAGINAL Jamaica Marsh, ROSA.CAT CRACKER OPERATOR [address] [place] [address] Us Imaging Referral ID Status Reason Start Date Expiration Date V isits Requested Visits Authorized [id number] Closed Auto-Generate d Referral 01/05/2022 02/04/2023 1 1 Reason Onset Date Comments Refill Request 2022 Reason Comments Follow Up Reason Comments Suture Removal Suture removal x 2 a abby right eye-placed by ER 6 days ago Reason Onset Date Comments Refill Request 10/04/2022 Reason Comments Patient Update Reason Onset Date Comments Patient Question 12/20/2022 Reason Comments Physical Reason Onset Date Comments Refill Request 02/06/2023 Reason Onset Date Comments Refill Request 05/22/2023 Reason Comments Medication Problem Dose Clarification Reason Comments Medication Request Reason Comments Edema bilateral legs x 2 w eeks, painful Reason Comments urgent car f/;up edema in joão legs Start ed a couple weeks ago in knees then down Reason Comments release of records to [facility] Reason Comments [facility] f/up Specialty Diagnoses / Procedures Referred By Contac t Referred To Contact FAMILY MEDICINE Diagnoses PCP office visit Procedures PCP office visit Gerber Pina DO [address] [place] [address] [facility] [address] [place] [address] Referral ID Status Reason Start Date Expiration Date V isits Requested Visits Authorized [id number] Closed Patient Cleared - Qualified 100% FAS 05/02/2024 07/31/2024 99 99 Reason Onset Date Comments Refill Request 05/24/2024 Reason Comments New Primary Care Pharmacy Reason Onset Date Comments Refill Request 06/12/2024 Reason Comments Medication Problem Reason Comments Insurance Authorization Reason Onset Date Comments Results 07/31/2024 Reason Onset Date Comments Opened In Error 09/19/2024 Reason Comments Patient Question No insurance and uns ure how she can get medical help Medication Request Social Work Services No show Appointments. Reason Comments Diabetes Reason Onset Date Comments Refill Request 10/07/2024 Reason Comments Medication Question Zeynpe Mejía Reason Comments High Blood Sugar Specialty Diagnoses / Procedures Referred By Marylin heredia Referred To Contact Endocrinology Diagnoses Type 2 diabetes mellitus without complication, with long-term current use of insulin (HCC) Congestive heart failure, unspecified HF chronicity, unspecified heart failure type (HCC) Procedures OFFICE/OUTPATIENT NEW HIGH MDM 60 MINUTES Gerber Pina DO [address] [place] [address] Phone: tel: fax: Referral ID Status Reason Start Date Expiration Date V isits Requested Visits Authorized [id number] Closed PCP Requested Referral 09/23/2024 09/23/2025 1 1 Reason Comments Missed Appointment Primary care resched ule Care Teams (unrecognized sec tion and content) Virtual Assistant Relationship Specialty Start Date End Date Gerber Pina DO [address] [place], [place] [address] PCP - General Family Practice 04/30/12 Virtual Assistant Relationship Specialty Start Date End Date Gerber Pina DO [address] [place], [place] [address] PCP - General Family Practice 04/30/12 Virtual Assistant Relationship Specialty Start Date End Date Gerber Pina DO [address] [place], [place] [address] PCP - General Family Practice 04/30/12 Virtual Assistant Relationship Specialty Start Date End Date Pina, Gerber L, DO [address] [place] [address] PCP - General Family Practice 04/30/12 Virtual Assistant Relationship Specialty Start Date End Date Gerber Pina, DO [address] [place] [address] PCP - General Family Practice 04/30/12 Virtual Assistant Relationship Specialty Start Date End Date Gerber Pina, DO [address] [place] [address] PCP - General Family Practice 04/30/12 Virtual Assistant Relationship Specialty Start Date End Date Gerber Pina, DO [address] [place] [address] PCP - General Family Practice 04/30/12 Virtual Assistant Relationship Specialty Start Date End Date Gerber Pina, DO [address] [place] [address] PCP - General Family Practice 04/30/12 Virtual Assistant Relationship Specialty Start Date End Date Gerber Pina, DO [address] [place] [address] PCP - General Family Practice 04/30/12 Virtual Assistant Relationship Specialty Start Date End Date Gerber Pina, DO [address] [place] [address] PCP - General Family Medicine 04/30/12 Virtual Assistant Relationship Specialty Start Date End Date Gerber Pina, DO [address] [place] [address] PCP - General Family Medicine 04/30/12 Virtual Assistant Relationship Specialty Start Date End Date Gerber Pina, DO [address] [place] [address] PCP - General Family Medicine 04/30/12 Virtual Assistant Relationship Specialty Start Date End Date Gerber Pina, DO [address] [place] [address] PCP - General Family Medicine 04/30/12 Virtual Assistant Relationship Specialty Start Date End Date Gerber Pina, DO [address] [place] [address] PCP - General Family Medicine 04/30/12 Virtual Assistant Relationship Specialty Start Date End Date Gerber Pina, DO [address] [place] [address] PCP - General Family Medicine 04/30/12 Virtual Assistant Relationship Specialty Start Date End Date Gerber Pina, DO [address] [place] [address] PCP - General Family Medicine 04/30/12 Virtual Assistant Relationship Specialty Start Date End Date Gerber Pina, DO [address] [place] [address] PCP - General Family Medicine 04/30/12 Virtual Assistant Relationship Specialty Start Date End Date Gerber Pina, DO [address] [place] [address] PCP - General Family Medicine 04/30/12 Virtual Assistant Relationship Specialty Start Date End Date Gerber Pina, DO [address] [place] [address] PCP - General Family Medicine 04/30/12 Virtual Assistant Relationship Specialty Start Date End Date Gerber Pina, DO [address] [place] [address] PCP - General Family Medicine 04/30/12 Virtual Assistant Relationship Specialty Start Date End Date Gerber Pina, DO [address] [place] [address] PCP - General Family Medicine 04/30/12 Virtual Assistant Relationship Specialty Start Date End Date Gerber Pina DO [address] [place] [address] PCP - General Family Medicine 04/30/12 Virtual Assistant Relationship Specialty Start Date End Date Gerber Pina DO [address] [place] [address] PCP - General Family Medicine 04/30/12 Virtual Assistant Relationship Specialty Start Date End Date Gerber Pina DO [address] [place] [address] PCP - General Family Medicine 04/30/12 Virtual Assistant Relationship Specialty Start Date End Date Gerber Pina DO [address] [place] [address] PCP - General Family Medicine 04/30/12 Virtual Assistant Relationship Specialty Start Date End Date Gerber Pina DO [address] [place] [address] PCP - General Family Medicine 04/30/12 Virtual Assistant Relationship Specialty Start Date End Date Gerber Pina DO [address] [place] [address] PCP - General Family Medicine 04/30/12 Virtual Assistant Relationship Specialty Start Date End Date Gerber Pina DO [address] [place] [address] PCP - General Family Medicine 04/30/12 Virtual Assistant Relationship Specialty Start Date End Date Gerebr Pina DO [address] [place] [address] PCP - General Family Medicine 04/30/12 Jamaica Mireles, CAR WASH SUPERVISOR.CAT CRACKER OPERATOR [address] [place] [address] Senior Marketing Associate Family Medicine 03/24/24 Cecy Barboza, CAR WASH SUPERVISOR.CAT CRACKER OPERATOR [address] [place] [address] Senior Marketing Associate Family Medicine 03/24/24 Virtual Assistant Relationship Specialty Start Date End Date Gerber Pina DO [address] [place] [address] PCP - General Family Medicine 04/30/12 Jamaica Mireles, CAR WASH SUPERVISOR.CAT CRACKER OPERATOR [address] [place] [address] Senior Marketing Associate Family Medicine 03/24/24 Cecy Barboza, CAR WASH SUPERVISOR.CAT CRACKER OPERATOR [address] [place] [address] Senior Marketing Associate Family Medicine 03/24/24 Virtual Assistant Relationship Specialty Start Date End Date Gerber Pina DO [address] [place] [address] PCP - General Family Medicine 04/30/12 Jamaica Mireles, CAR WASH SUPERVISOR.CAT CRACKER OPERATOR [address] [place] [address] Senior Marketing Associate Family Medicine 03/24/24 Cecy Barboza, CAR WASH SUPERVISOR.CAT CRACKER OPERATOR [address] [place] [address] [facility] 03/24/24 Virtual Assistant Relationship Specialty Start Date End Date Gerber Pina DO [address] [place] [address] PCP - General [facility] Medicine 04/30/12 Jamaica Mireles, CAR WASH SUPERVISOR.CAT CRACKER OPERATOR [address] [place] [address] [facility]24 [facility], CAR WASH SUPERVISOR.CAT CRACKER OPERATOR [address] [place] [address] [facility] 03/24/24 Virtual Assistant Relationship Specialty Start Date End Date Gerber Pina DO [address] [place] [address] PCP - General [facility] Medicine 04/30/12 Jamaica Mireles, CAR WASH SUPERVISOR.CAT CRACKER OPERATOR [address] [place] [address] [facility] 03/24/24 [facility], CAR WASH SUPERVISOR.CAT CRACKER OPERATOR [address] [place] [address] [facility] 03/24/24 Virtual Assistant Relationship Specialty Start Date End Date Gerber Pina DO [address] [place] [address] PCP - General Family Medicine 04/30/12 Jamaica Mireles, CAR WASH SUPERVISOR.CAT CRACKER OPERATOR [address] [place] [address] [facility] 03/24/24 [facility], CAR WASH SUPERVISOR.CAT CRACKER OPERATOR [address] [place] [address] [facility] 03/24/24 Virtual Assistant Relationship Specialty Start Date End Date Gerber Pina DO [address] [place] [address] PCP - General Family Medicine 04/30/12 Jamaica Mirlees, CAR WASH SUPERVISOR.CAT CRACKER OPERATOR [address] [place] [address] [facility] 03/24/24 [facility], CAR WASH SUPERVISOR.CAT CRACKER OPERATOR [address] [place] [address] [facility] 03/24/24 Virtual Assistant Relationship Specialty Start Date End Date Gerber Pina DO [address] [place] [address] PCP - General Family Medicine 04/30/12 Jamaica Mireles, CAR WASH SUPERVISOR.CAT CRACKER OPERATOR [address] [place] [address] [facility] 03/24/24 [facility], CAR WASH SUPERVISOR.CAT CRACKER OPERATOR [address] [place] [address] [facility] 03/24/24 Virtual Assistant Relationship Specialty Start Date End Date Gerber Pina DO [address] [place] [address] PCP - General Family Medicine 04/30/12 Jamaica Mireles, CAR WASH SUPERVISOR.CAT CRACKER OPERATOR [address] [place] [address] Senior Marketing Associate Family [facility] 03/24/24 Cecy Barboza, CAR WASH SUPERVISOR.CAT CRACKER OPERATOR [address] [place] [address] Senior Marketing Associate Family Medicine 03/24/24 Virtual Assistant Relationship Specialty Start Date End Date Gerber Pina DO [address] [place] [address] PCP - General Family Medicine 04/30/12 Jamaica Mireles, CAR WASH SUPERVISOR.CAT CRACKER OPERATOR [address] [place] [address] Senior Marketing Associate Family [facility] 03/24/24 Cecy Barboza, CAR WASH SUPERVISOR.CAT CRACKER OPERATOR [address] [place] [address] [facility] 03/24/24 Virtual Assistant Relationship Specialty Start Date End Date Gerber Pina DO [address] [place] [address] PCP - General Family Medicine 04/30/12 Jamaica Mireles, CAR WASH SUPERVISOR.CAT CRACKER OPERATOR [address] [place] [address] Senior Marketing Associate Family Medicine 03/24/24 Cecy Barboza, CAR WASH SUPERVISOR.CAT CRACKER OPERATOR [address] [place] [address] [facility] 03/24/24 Virtual Assistant Relationship Specialty Start Date End Date Gerber Pina DO [address] [place] [address] PCP - General Family Medicine 04/30/12 Jamaica Mireles, CAR WASH SUPERVISOR.CAT CRACKER OPERATOR [address] [place] [address] Senior Marketing Associate Family Medicine 03/24/24 07/05/24 Cecy Barboza, CAR WASH SUPERVISOR.CAT CRACKER OPERATOR [address] [place] [address] Senior Marketing Associate Family Medicine 03/24/24 Virtual Assistant Relationship Specialty Start Date End Date Gerber Pina DO [address] [place] [address] PCP - General Family Medicine 04/30/12 Cecy Barboza, CAR WASH SUPERVISOR.CAT CRACKER OPERATOR [address] [place] [address] [facility] 03/24/24 Virtual Assistant Relationship Specialty Start Date End Date Gerber Pina DO [address] [place] [address] PCP - General Family Medicine 04/30/12 Cecy Barboza, CAR WASH SUPERVISOR.CAT CRACKER OPERATOR [address] [place] [address] [facility] 03/24/24 Virtual Assistant Relationship Specialty Start Date End Date Gerber Pina DO [address] [place] [address] PCP - General Family Medicine 04/30/12 Cecy Barboza, CAR WASH SUPERVISOR.CAT CRACKER OPERATOR [address] [place] [address] Senior Marketing Associate Family Medicine 03/24/24 Virtual Assistant Relationship Specialty Start Date End Date Gerber Pina DO [address] [place] [address] PCP - General Family Medicine 04/30/12 Cecy Barboza, CAR WASH SUPERVISOR.CAT CRACKER OPERATOR [address] [place] [address] Senior Marketing Associate Family [facility] 03/24/24 Virtual Assistant Relationship Specialty Start Date End Date Gerber Pina DO [address] [place] [address] PCP - General Family Medicine 04/30/12 Cecy Barboza, CAR WASH SUPERVISOR.CAT CRACKER OPERATOR [address] [place] [address] Senior Marketing Associate Family [facility] 03/24/24 Virtual Assistant Relationship Specialty Start Date End Date Gerber Pina DO [address] [place] [address] PCP - General Family Medicine 04/30/12 Cecy Barboza, CAR WASH SUPERVISOR.CAT CRACKER OPERATOR [address] [place] [address] Senior Marketing Associate Family Medicine 03/24/24 Mag Valdez, CAR WASH SUPERVISOR.CAT CRACKER OPERATOR [address] [place] [address] Family Medicine 09/24/24 Mag Valdez, CAR WASH SUPERVISOR.CAT CRACKER OPERATOR [address] [place] [address] Senior Marketing Associate Family Medicine 09/30/24 Virtual Assistant Relationship Specialty Start Date End Date Gerber Pina DO [address] [facility] [address] PCP - General Family Medicine 04/30/12 Cecy Barboza, CAR WASH SUPERVISOR.CAT CRACKER OPERATOR [address] [facility] [address] Senior Marketing Associate Family Medicine 03/24/24 Mag Valdez, CAR WASH SUPERVISOR.CAT CRACKER OPERATOR [address] [facility] [place] [address] Family Medicine 09/24/24 Mga Valdez, CAR WASH SUPERVISOR.CAT CRACKER OPERATOR [address] [place] [place] [address] Senior Marketing Associate Family Medicine 09/30/24 [place], [facility] [address] [place] [phone] Pharmacist Pharmacy 10/07/24 Virtual Assistant Relationship Specialty Start Date End Date Gerber Pina DO [address] [facility] [address] PCP - General Family Medicine 04/30/12 Cecy Barboza, CAR WASH SUPERVISOR.CAT CRACKER OPERATOR [address] [facility] [address] Senior Marketing Associate Family Medicine 03/24/24 Mag Valdez, CAR WASH SUPERVISOR.CAT CRACKER OPERATOR [address] [facility] [place] [address] Family Medicine 09/24/24 Mag Valdez, CAR WASH SUPERVISOR.CAT CRACKER OPERATOR [address] [place] [address] Senior Marketing Associate Family Medicine 09/30/[address] [phone] Pharmacist Pharmacy 10/07/24 Virtual Assistant Relationship Specialty Start Date End Date Gerber Pina DO [address] [place] [address] PCP - General Family Medicine 04/30/12 Cecy Barboza, CAR WASH SUPERVISOR.CAT CRACKER OPERATOR [address] [place] [address] Senior Marketing Associate Family Medicine 03/24/24 Mag Valdez, CAR WASH SUPERVISOR.CAT CRACKER OPERATOR [address] [place] [address] Family Medicine 09/24/24 Mag Valdez, CAR WASH SUPERVISOR.CAT CRACKER OPERATOR [address] [place] [address] Senior Marketing Associate Family Medicine 09/30/[address] [phone] Pharmacist Pharmacy 10/07/24 Virtual Assistant Relationship Specialty Start Date End Date Gerber Pina DO [address] [place] [address] PCP - General Family Medicine 04/30/12 Cecy Barboza, CAR WASH SUPERVISOR.CAT CRACKER OPERATOR [address] [place] [address] Senior Marketing Associate Family Medicine 03/24/24 Mag Valdez, CAR WASH SUPERVISOR.CAT CRACKER OPERATOR [address] [place] [address] Family Medicine 09/24/24 Mag Valdez, CAR WASH SUPERVISOR.CAT CRACKER OPERATOR [address] [place] [address] Senior Marketing Associate Family Medicine 09/30/[address] [phone] Pharmacist Pharmacy 10/07/24 Virtual Assistant Relationship Specialty Start Date End Date Gerber Pina DO [address] [place] [address] PCP - General Family Medicine 04/30/12 Cecy Barboza, CAR WASH SUPERVISOR.CAT CRACKER OPERATOR [address] [place] [address] Senior Marketing Associate Family Medicine 03/24/24 Mag Valdez, CAR WASH SUPERVISOR.CAT CRACKER OPERATOR [address] [place] [address] Family Medicine 09/24/24 Mag Valdez, CAR WASH SUPERVISOR.CAT CRACKER OPERATOR [address] [place] [address] Senior Marketing Associate Family Medicine 09/30/24 [place] [address] [place] [phone] Pharmacist Pharmacy 10/07/24 Team Status: Active Member Role/Relationship Status Dates Dr. Gerber Pina DO Family Provider Active Dr. Gerber Pina , DO Primary Care Provider Active Team Status: Inactive Member Role/Relationship Status Dates Dr. Gerber Pina DO Primary Care Provider Active Start: November 22, 2024 End: November 22, 2024 Dr. Gerber Pina DO Referring Provider Active Start: November 22, 2024 End: November 22, 2024 MARYANN Comer Attending Provider Active St art: November 22, 2024 End: November 22, 2024 Team Status: Inactive Member Role/Relationship Status Dates Dr. Gerber Pina DO Primary Care Provider Active Start: November 22, 2024 End: November 22, 2024 MARYANN Comer Attending Provider Active St art: November 22, 2024 End: November 22, 2024 MARYANN Comer Referring Provider Active St art: November 22, 2024 End: November 22, 2024 Virtual Assistant Relationship Specialty Start Date End Date Gerber Pina DO [address] [place] [address] PCP - General Family Medicine 04/30/12 Cecy Barboza, CAR WASH SUPERVISOR.CAT CRACKER OPERATOR [address] [place] [address] Senior Marketing Associate Family Medicine 03/24/24 Mag Valdez, CAR WASH SUPERVISOR.CAT CRACKER OPERATOR [address] [place] [address] Family Medicine 09/24/24 Mag Valdez, CAR WASH SUPERVISOR.CAT CRACKER OPERATOR [facility] [place] [address] Senior Marketing Associate Family Medicine 09/30/24 [facility] [address] [place] [address] Pharmacist Pharmacy 10/07/24 Goals (unrecognized section and content) Goals may be documented in a n alternate section FOR RECORDS PERTAINING TO PATIENTS WHO ARE OR HAVE BEEN ENROLLED IN A CHEMICAL DEPENDENCY/SUBSTANCEABUSE PROGRAM, SOME INFORMATION MAY BE OMITTED. This clinical summary was aggregated from multiple sources. Caution should be exercised in using it in the provision of clinical care. This summary normalizes information from multiple sources, and as a consequence, information in this document may materially change the coding, format and clinical context of patient data. In addition, data may be omitted in some cases. CLINICAL DECISIONS SHOULD BE BASED ON THE PRIMARY CLINICAL RECORDS. [employer] [facility]. provides no warranty or guarantee of the accuracy or completeness of information in this document.
[2025-03-30 07:37] LABS: Hematocrit 43.2 % (37-47); Hemoglobin 13.3 g/dL (12.0-15.0); Immature Granulocytes Count 0.010 X10^3/uL (0.0-0.0); Mean Corp Hgb Conc 30.8 g/dL (32-36); Mean Corpuscular Volume 93.5 fL (81-99); Mean Platelet Vol. 11.6 fl (6.2-12.0); NRBC Flagged by Analyzer 0 % (0-5); POSITIVE DIFFERENTIAL YES; Platelet Count 250 K/mm3 (150-450); RBC Distribution Width CV 12.2 % (11.6-14.6); RBC Distribution Width SD 42.2 fl (35.1-43.9); Red Blood Count 4.62 M/mm3 (4.2-5.4); White Blood Count 3.8 K/mm3 (4.4-11.0)
[2025-03-30] MEDS: 0.9% Normal Saline (1000mL) 1,000 ML 1000 ML IV (07:37)
[2025-03-30 07:44] LABS: SITE Not entered; VBG BASE EXCESS 0 mmol/L (-1.0-3.5); VBG PO2 20 mmHg (25-40); VBG SO2 26 % (50-70); VBG TCO2 28 mmol/L (23-33)
[2025-03-30 07:48] LABS: Mucous, Urine 0 SEEN /hpf (<or=2+)
[2025-03-30 07:50] LABS: Internal QC Validated? YES +Cl - CLEAR BKGD; Pregnancy, Serum, hCG Quali. NEGATIVE Negative
[2025-03-30 07:59] LABS: Color, Urine Straw (Yellow); Glucose, Dipstick 1000 mg/dl (Normal); Ketone-Dipstick Negative (Negative); Leukocyte Esterase-Dipstick Negative /ul (Negative); Nitrite-Dipstick Negative (Negative); Occult Blood-Urine 25 /ul (Negative); Protein-Dipstick 100 mg/dl (Negative); Specific Gravity, Urine 1.010 (1.002-1.030); Urine Bilirubin Dipstick Negative (Negative)
--- NOTE | 2025-03-30 08:00 | RAD_ITS ---
PROCEDURE: CHEST 1 VIEW (PORTABLE) 03/30/2025 REASON FOR EXAM: AMS TECHNIQUE: Frontal view of the chest. FINDINGS: No focal consolidation. No pleural effusion or pneumothorax. Cardiac silhouette is within normal limits. No acute fractures. RAD/Chest 1 View (Portable) IMPRESSION: No focal consolidations. Reading Location: [id number]
[2025-03-30 08:04] LABS: Red Blood Cells-Urine 0-5 SEEN /hpf (0-5); Squamous Epithelial Cells - UA 0-5 SEEN /hpf (5-10)
[2025-03-30 08:05] LABS: Alcohol, Blood (Medical)-Serum < 10.1 mg/dL (<=10.0)
[2025-03-30 08:06] LABS: Lipase 114 U/L (13-75); Troponin T High Sensitivity 37 ng/L (<=14)
[2025-03-30 08:15] LABS: CPK Total, Creatine Kinase 644 U/L (24-195); Free T3 2.8 pg/mL (2.18-3.98)
[2025-03-30 08:24] LABS: AST(SGOT) 30 U/L (<=31); Alanine Aminotransfer ALT/SGPT 41 U/L (<=34); Albumin, Serum 4.1 g/dL (3.5-5.0); Alkaline Phosphatase 95 U/L (35-104); Anion Gap 13 (5-15); BUN 16 mg/dL (4-19); BUN/Creat Ratio 12.9 RATIO (10-20); Calcium,Total 10.7 mg/dL (7.6-11.0); Carbon Dioxide 23.3 mmol/L (21.0-32.0); Chloride 92 mmol/L (98-108); Estimated Creatinine Clearance 52.46 ml/min (50-250); Globulin 3.6 g/dL (2.2-4.2); Glucose 1122 mg/dL (70-99); Potassium 5.2 mmol/L (3.3-5.1)
--- NOTE | 2025-03-30 08:30 | ED.RN ---
Dr. Mcguire notified of patient abnormal eye activity. Patients eyes deviated to the left. patient heart rate 80-90 bpm and now 40 bpm. Patient began to have full body seizure activity. Dr. Mcguire gave a verbal order for 2mg Ativan IV. patients seizure activity subsided. Dr. Mcguire states he will intubate patient. RT and SofiyaRN notified
[2025-03-30 08:34] LABS: BETA-HYDROXYBUTYRATE 0.6 mmol/L (0.0-0.3)
[2025-03-30 08:35] LABS: Osmolality, Serum 335 mOsm/KG (275-295)
[2025-03-30 08:36] LABS: Barbiturate Urine NEGATIVE (< 200 ng/mL); Benzodiazepine Urine NEGATIVE (< 200 ng/mL); PCP Urine NEGATIVE (< 25 ng/mL); THC Urine NEGATIVE (< 50 ng/mL)
--- NOTE | 2025-03-30 08:48 | CT_ITS ---
PROCEDURE: BRAIN/HEAD WITHOUT CONTRAST 03/30/2025 REASON FOR EXAM: NEW ONSET SEIZURE TECHNIQUE: Procedure Code: CTBR Modality: CT Procedure: BRAIN/HEAD WITHOUT CONTRAST Coronal and Sagittal reconstruction series were provided. One or more dose reduction techniques were used (e.g., Automated exposure control, adjustment of the mA and/or kV according to patient size, use of iterative reconstruction technique. RADIATION DOSE SUMMARY: DLP: 890 mGycm COMPARISON: 03/30/2025 FINDINGS: There is no acute infarct, intracranial hemorrhage, or mass effect. There is no hydrocephalus or significant midline shift. There is mild chronic microvascular ischemic changes and mild parenchymal volume loss. No acute, depressed calvarial fractures. No large scalp hematomas. The paranasal sinuses are clear. CT/Brain/Head without Contrast IMPRESSION: No acute intracranial process. Reading Location: [id number]
[2025-03-30] MEDS: Insulin Lispro 100 UNIT in 0.9% Normal Saline (100mL Bag) 99 ML 10.4 UNIT CONT INF (08:57)
[2025-03-30] MEDS: levETIRAcetam IV 2,000 MG in 0.9% Normal Saline (250mL Bag) 230 ML 1000 MG IV (09:00)
--- NOTE | 2025-03-30 09:00 | RAD_ITS ---
PROCEDURE: CHEST 1 VIEW (PORTABLE) 03/30/2025 REASON FOR EXAM: TUBE PLACEMENT TECHNIQUE: Frontal view of the chest. COMPARISON: Portable chest, 03/30/2025 at 8:10 a.m. FINDINGS: There is an endotracheal tube present with the tip 5.5 cm above the cassi. There is a nasogastric tube with the tip and side port coiled in the area of the stomach. The lungs are clear. The heart borders mediastinum and pulmonary vascular pattern are normal. RAD/Chest 1 View (Portable) IMPRESSION: Endotracheal tube and nasogastric tube appear in good position. Other findings as noted. Reading Location: [place] [address]
--- NOTE | 2025-03-30 09:06 | ED.RN ---
Attempted to call both emergency contacts with no success. Left a message for
[2025-03-30] MEDS: Propofol 10MG/Ml 1,000 MG/100 ML Bottle 4.1 MG CONT INF (09:21)
[2025-03-30 09:25] LABS: Allen Test Positive; Base Excess -4 mmol/L (-2 to +2); FI02 30.0; PEEP 5; PO2 123 mmHG (75-100); RR 14; SITE R Brach; SO2 99 % (94-98)
[2025-03-30 09:35] LABS: Magnesium 2.4 mg/dL (1.5-2.2)
[2025-03-30 09:48] LABS: Triglycerides 119 mg/dL
[2025-03-30 10:23] LABS: Troponin T High Sens 2 HR 29 ng/L (<=14)
[2025-03-30 10:36] LABS: Anion Gap 16 (5-15); BUN 15 mg/dL (4-19); BUN/Creat Ratio 13.2 RATIO (10-20); Calcium,Total 10.1 mg/dL (7.6-11.0); Carbon Dioxide 19.3 mmol/L (21.0-32.0); Chloride 99 mmol/L (98-108); Estimated Creatinine Clearance 56.63 ml/min (50-250); Glucose 783 mg/dL (70-99); Potassium 3.5 mmol/L (3.3-5.1)
[2025-03-30] MEDS: 0.9% Normal Saline (1000mL) 1,000 ML 999 ML IV (10:45)
--- NOTE | 2025-03-30 11:14 | PCA ---
CALLED PHYSICIANS @ 930 AND PUT RIDE ON WILL CALL FOR HER. WAITING ON BED. THUY CALLED BACK AT 1016 WITH A BED ASSIGNMENT OF [id number]. I CALLED AND LET PHYSICIANS KNOW ABOUT THAT. GAVE AN ETA OFF 1430. MOVED IT UP TO 1200 @ 1038.
--- NOTE | 2025-03-30 11:48 | ED.RN ---
Patients daughter called for an updated. BOYD Bishop gave patient an update. Dr. Mcguire contacted patients mother. Patients mother understands she is being transferred ot [facility] and agree with plan of care. No further questions at this time.
[2025-03-30] MEDS: fentaNYL 100 MCG/2 ML Ampul 50 MCG IV (12:13)
== END 2025-03-30 13:08 | disposition short-term general hospital (02) ==
PROVIDERS: Emergency Provider Emergency Medicine; PCP Student in an Organized Health Care Education/Training Program; Visit Provider Emergency Medicine
DX: R41.82 Altered mental status, unspecified (principal); I11.0 Hypertensive heart disease with heart failure; I50.23 Acute on chronic systolic (congestive) heart failure; R56.9 Unspecified convulsions; E11.65 Type 2 diabetes mellitus with hyperglycemia; Z79.4 Long term (current) use of insulin; R40.4 Transient alteration of awareness; E87.0 Hyperosmolality and hypernatremia; I25.10 Atherosclerotic heart disease of native coronary artery without angina pectoris; D64.9 Anemia, unspecified; I25.2 Old myocardial infarction; Z79.01 Long term (current) use of anticoagulants; Z79.899 Other long term (current) drug therapy; Z95.5 Presence of coronary angioplasty implant and graft
CPT/HCPCS: 31500; 36600; 51702; 70450; 71045; 80048; 80053; 80307; 81001; 82010; 82077; 82550; 82803; 82962; 83605; 83690; 83735; 83930; 84100; 84439; 84443; 84478; 84481; 84484; 84703; 85025; 87631; 93005; 94002; 96365; 96366; 96368; 96375; 96376; 99252; 99285; P9612; A4216; G0463; J2405